=== PATIENT | female | born 1965 | race Caucasian/White ===

== ENCOUNTER → 2017-08-17 14:54 | Outpatient (CLI) | payer OTHER, SELFPAY ==
--- NOTE | 2017-08-17 15:04 | XR_ITS ---
XR chest 2V HISTORY: ITS.REASON: PNEUMONIA ORDERING PHYSICIAN: Angeles Hartman PATIENT AGE: 51 years COMPARISON: 10/12/2016 FINDINGS: Prior median sternotomy. Unremarkable heart size. Right pericardial fat pad is present as before. No lobar consolidation or collapse. Fibrotic changes are present in the anterior clear space in the right upper lobe. No acute bony anomalies. IMPRESSION: Prior median sternotomy with chronic changes, no acute finding
== END ==
LOC: RAD 14:57
PROVIDERS: PCP Nurse Practitioner Family; Visit Provider Nurse Practitioner Family
DX: J18.1 Lobar pneumonia, unspecified organism (principal)
CPT/HCPCS: 71046

== ENCOUNTER → 2017-09-18 10:24 | Outpatient (CLI) | payer OTHER, SELFPAY ==
--- NOTE | 2017-09-18 10:29 | XR_ITS ---
XR knee LT 3V HISTORY: Pain following injury ITS.REASON: LEFT KNEE INJURY ORDERING PHYSICIAN: Angeles Hartman PATIENT AGE: 51 years COMPARISON: 04/07/2017 FINDINGS: There are mild osteoarthritic changes of the medial compartment and patellofemoral joint. No fracture or dislocation. There are varicosities noted about the knee. IMPRESSION: No acute fracture. Osteoarthritis
== END ==
PROVIDERS: PCP Nurse Practitioner Family; Visit Provider Nurse Practitioner Family
DX: S89.92XA Unspecified injury of left lower leg, initial encounter (principal)
CPT/HCPCS: 73562

== ENCOUNTER → 2017-10-04 12:49 | Outpatient (CLI) | payer OTHER, SELFPAY ==
--- NOTE | 2017-10-04 12:57 | US_ITS ---
US Arterial Ankle Brachial Ind History: Ketan no, hypertension, bilateral rest pain, bilateral claudication, bilateral skin color changes ORDERING PHYSICIAN: Angeles Hartman PATIENT AGE: 52 years TECHNIQUE: Segmental pressures obtained of both right and left leg. These are compared to brachial blood pressure to yield index at each level sampled including summary URIEL. The data sheets from the procedure are available in PACS FINDINGS Rest study only performed today No prior studies available for comparison. Blood pressures reported are in millimeters mercury. RIGHT LEG URIEL = 1.1. RIGHT LEG TBI=0.8 Brachial BP: 115 Thigh BP: 142 Calf BP: 140 Ankle PT: 133 Ankle DP : 136 Digit =101 LEFT LEG URIEL = 1.3 LEFT LEG TBI= 0.8 Brachial BPD: 120 Thigh BP: 165 Calf BP: 135 Ankle PT:151 Ankle DP: 135 Digit = 100 Pulses and waveforms: Normal IMPRESSION: The right URIEL and bilateral TBIs as reported above are within normal limits. Waveforms and pulses are also unremarkable. The left URIEL is slightly elevated which may be seen with hardening/calcification of the arteries.
== END ==
LOC: RT 12:52
PROVIDERS: Family Provider Family Medicine; PCP Nurse Practitioner Family; Visit Provider Nurse Practitioner Family
DX: R29.898 Other symptoms and signs involving the musculoskeletal system (principal)
CPT/HCPCS: 93922

== ENCOUNTER → 2017-11-23 16:08 | Outpatient (CLI) | payer OTHER, SELFPAY ==
--- NOTE | 2017-11-23 16:10 | MR_ITS ---
MR knee LT wo con Ordering Physician: Angeles Hartman Patient Age: 52 years: Female HISTORY: ITS.REASON: LEFT ANTERIOR KNEE PAIN Anterior knee pain since fall in September 18, 2017. Pain is all about the left knee. Also lateral. It extends up the leg to the hip.. TECHNIQUE: Multiplanar multisequence imaging on 1.5T MR. COMPARISON : FINDINGS PATELLOFEMORAL JOINT slight shallow femoral trochlear groove with slight lateral tilt and orientation of patella. The cartilage at posterior patella subtle thinned throughout particularly suggested at midportion,, towards lateral facet . .. Patella appears slightly high in position on sagittal view with., with borderline to mild patella aparna. ( Patella itself measures 4 cm length., Longer than Patellar tendon which measures 5 cm in length.) This may yield slight redundancy and buckling of quadriceps tendon near its patellar to to account for its contour here. Early marginal osteophytes to the lateral patella and slight sharpening is margins otherwise. MEDIAL COMPARTMENT. There is narrowing of the medial compartment with what appears to be diffuse chondral thinning both sides the joint. There is slight medial displacement of the body the medial meniscus associated with this joint space narrowing. The sagittal images are not optimal but there does appear to be a small tear inferior surface of posterior horn which extends to the body horn junction. Sagittal image 11, 10.. This is also seen: Image 21. LATERAL COMPARTMENT. Cartilage better maintained with borderline thinning there appears to be some macro metal artifact projected over the posterior aspect of lateral compartment. No metal evident on plain film. This yields a mild field distortion. However the lateral meniscus seems to be intact at the posterior horn only some upper normal signal at the anterior horn towards anterior root. A superficial varicosities about the knee, in this large patient noted . ACL & PCL are intact. T . MCL & lateral collateral ligaments are intact.. Patellar tendon appear intact. Upper normal signal at insertion of quadriceps tendon noted. Requires correlation. Could reflect some minor injury or inflammation here but unimpressive, nonspecific. No definitive tear. Large joint effusion most evident at the patella bursa, lateral greater than medial. Small Jain's cyst also noted IMPRESSION: 1. Diffuse chondral thinning at the medial compartment. Early degenerative changes knee. Mild sharpening the joint margins. 2. Small Medial Meniscal Tear.-At Inferior surface of posterior horn medial meniscus.. Slight medial displacement of the body of medial meniscus associated with the medial joint space narrowing 3. Large joint effusion with small Jain cyst. 4. Patellofemoral joint observations. : Borderline to mild patella aparna noted Slight lateral tilt & position of patella noted,, with modest femoral trochlear groove. Minimal chondral thinning posterior patella cartilage. 5. Upper normal signal at quadriceps tendon insertion upon the patella. Questionable Clinical significance. May merely magic angle artifact. Requires correlation
== END ==
LOC: RAD 16:08
PROVIDERS: Family Provider Family Medicine; PCP Nurse Practitioner Family; Visit Provider Nurse Practitioner Family
DX: M25.562 Pain in left knee (principal)
CPT/HCPCS: 73721

== ENCOUNTER 2018-01-03 09:00 | Outpatient (RCR) | payer OTHER, SELFPAY ==
--- NOTE | 2017-11-01 09:42 | HMH.PTOPWND ---
Rehab Outpt Wound Evaluation Rehab OP Wound Evaluation Start: 11/01/17 08:58 Freq: Status: Active Protocol: Document 11/01/17 09:27 JEN (Rec: 11/01/17 09:42 PHORNE [id number]) Electronically Signed By Trino Grajeda, PT 11/01/17 09:27 Subjective/History History History Pt is 52 yo white female who presents with c/o conor LE edema (right > left), steadily worsening, x ~ 5 yrs. She reports significant pain and tenderness to palpation associated with her edema, with intermittent feelings of tingling. She reports swelling decreases at night with legs propped up and is worse when working on her feet all day. She had URIEL performed which was 1.3 on the left LE which is indicitive of non- compressible arteries and she does c/o symptoms which could be mild claudication. Obvious multiple varicosities throughout conor lower legs. She reports having, laser vein procedure on my left thigh, which did not help her symptoms. She also has PMH of CCY, tubal ligation, and thymus removal. Lymphedema Eval Classification of Lymphedema Secondary Lymphedema Yes Other Lymphedema Cause Yes: CVI Stemmer's sign Stemmer's Sign no Stage of Lymphedema Lymphedema stages Stage I (Pitting edema, reduces w/ elevation, no fibrosis) Skin Changes Dry Skin Yes Pain Scale Pain Scale (0-10) 8 Affected Extremities Areas Affected by Lymphedema/Edema Abdomen Right Lower Extremity Left Lower Extremity Manual Lymphatic Drainage Treatment Area MLD Treatment Area Abdomen Right Lower Extremity Left Lower Extremity Wound Problems/Impairments Impairments Problems/Impairmments Palpation Tenderness Impaired Standing Increased Edema Lymphedema Present Subjective C/O Pain
== END 2018-01-03 09:05 | disposition home or self-care (01) ==
LOC: PT 09:00
PROVIDERS: Family Provider Family Medicine; PCP Nurse Practitioner Family; Visit Provider Nurse Practitioner Family
DX: M25.462 Effusion, left knee (principal); M25.562 Pain in left knee
CPT/HCPCS: 97010; 97014; 97033; 97035; 97110; 97140; 97162; 97163; G0283

== ENCOUNTER → 2018-04-17 14:24 | Outpatient (CLI) | payer OTHER, SELFPAY ==
--- NOTE | 2018-04-17 14:27 | US_ITS ---
US transvaginal HISTORY: Dysfunctional uterine bleeding ITS.REASON: ABNORMAL BLEEDING ORDERING PHYSICIAN: Angeles Hartman PATIENT AGE: 52 years Comparison: None Last menstrual period: 03/16/2018 FINDINGS: The uterus is 8 x 4 x 5 cm with combined endometrial thickness of 9 mm. Small Nabothian cyst is present at 8 mm. No uterine mass apparent The right ovary is 26 by 19 x 14 mm and contains a 15 mm cyst The left ovary difficult to visualize but appears unremarkable at 23 x 12 mm. No cul-de-sac fluid. IMPRESSION: Unremarkable pelvic ultrasound
== END ==
LOC: RAD 14:24
PROVIDERS: PCP Nurse Practitioner Family; Visit Provider Nurse Practitioner Family
DX: N93.9 Abnormal uterine and vaginal bleeding, unspecified (principal)
CPT/HCPCS: 76830

== ENCOUNTER → 2018-04-26 12:59 | Outpatient (CLI) | payer OTHER, SELFPAY ==
--- NOTE | 2018-04-26 13:03 | XR_ITS ---
XR knee LT 4V HISTORY: ITS.REASON: LT KNEE PAIN ORDERING PHYSICIAN: Annette Gold MD PATIENT AGE: 52 years COMPARISON: None FINDINGS: There are mild osteoarthritic changes of the patellofemoral joint and the medial compartment. No fracture or dislocation. No lytic or blastic change. IMPRESSION: Mild osteoarthritis of the medial compartment and patellofemoral joint
== END ==
LOC: RAD 13:00
PROVIDERS: PCP Nurse Practitioner Family; Visit Provider Orthopaedic Surgery
DX: M25.562 Pain in left knee (principal)
CPT/HCPCS: 73564

== ENCOUNTER → 2018-05-02 10:38 | Outpatient (CLI) | payer OTHER, SELFPAY ==
[2018-05-02 10:42] LABS: Adenovirus F 40/41, stool Not Detected (NotDetected); Astrovirus Not Detected (NotDetected); Clostridium Difficile A/B, PCR Not Detected (NotDetected); Cryptosporidium Not Detected (NotDetected); Cyclospora Cayetanesis Not Detected (NotDetected); Entamoeba histolytica Not Detected (NotDetected); Enteroaggregative E coli Not Detected (NotDetected); Enteropathogenic E coli Not Detected (NotDetected); Enterotoxigenic E coli Not Detected (NotDetected); Giardia lamblia Not Detected (NotDetected); Norovirus Not Detected (NotDetected); Plesimonas Shigalloides, PCR Not Detected (NotDetected); Rotavirus A Not Detected (NotDetected); Salmonella, PCR Not Detected (NotDetected); Sapovirus Not Detected (NotDetected); Shiga-like toxin E coli Not Detected (NotDetected); Shigella Enterovasive E coli Not Detected (NotDetected); Vibrio Cholerae Not Detected (NotDetected); Vibrio, PCR Not Detected (NotDetected); Yersinia Entercolitica, PCR Not Detected (NotDetected)
[2018-05-02 15:14] LABS: Campylobacter Detected (NotDetected)
== END ==
LOC: LAB 10:39
PROVIDERS: Visit Provider Family Medicine
DX: R19.7 Diarrhea, unspecified (principal)
CPT/HCPCS: 87507

== ENCOUNTER → 2018-06-04 10:31 | Outpatient (POV) | payer OTHER, SELFPAY | PROVIDERS: Visit Provider Nurse Practitioner Acute Care | DX: Z00.00 Encounter for general adult medical examination without abnormal findings (principal) ==

== ENCOUNTER 2018-09-04 14:00 | Outpatient (RCR) | payer OTHER, SELFPAY ==
--- NOTE | 2018-08-03 08:32 | HMH.PTOPWND ---
Rehab Outpt Wound Evaluation Rehab OP Wound Evaluation Start: 08/03/18 07:57 Freq: Status: Active Protocol: Document 08/03/18 08:22 JEN (Rec: 08/03/18 08:32 PHORNE [id number]) Electronically Signed By Trino Grajeda, PT 08/03/18 08:22 Subjective/History History History Pt is a 52 yowf who presents with c/o conor LE edema x~ 5 yrs , worse on the left side, and gradually increasing symptoms. She reports variable pain in conor LE and intermittent tingling. She has been following her HEP from previous treatment, but has had recent increase in symptoms. She reports edema is decreased in the am. PMH: lap CCY, tubal ligation, laser varicose vein reduction on left LE x 2. She did have URIEL performed on conor LE ~ 8 mos ago Right LE = 1.1, Left LE = 1.3. Subjective Subjective Pt c/o pain 7/10 today, constant but variable intensity. She c/o increased feelings of abdominal edema and would likely benefit from lymphedema pump at home. Lymphedema Eval Classification of Lymphedema Secondary Lymphedema Yes Stemmer's sign Stemmer's Sign no Stage of Lymphedema Lymphedema stages Stage I (Pitting edema, reduces w/ elevation, no fibrosis) Skin Changes Dry Skin Yes Other Changes Yes Pain Scale Pain Scale (0-10) 7 Affected Extremities Areas Affected by Lymphedema/Edema Abdomen Right Lower Extremity Left Lower Extremity Manual Lymphatic Drainage Treatment Area MLD Treatment Area Abdomen Right Lower Extremity Left Lower Extremity Wound Problems/Impairments Impairments Problems/Impairmments Palpation Tenderness Impaired Walking Impaired Stair Climbing Impaired Recreational Activities Increased Edema Lymphedema Present Subjective C/O Pain
== END 2018-09-04 14:05 | disposition home or self-care (01) ==
LOC: PT 14:00
PROVIDERS: Visit Provider Nurse Practitioner Family
DX: I89.0 Lymphedema, not elsewhere classified (principal); M79.662 Pain in left lower leg; M79.661 Pain in right lower leg
CPT/HCPCS: 97140; 97162

== ENCOUNTER → 2018-12-05 10:40 | Outpatient (CLI) | payer OTHER, SELFPAY ==
[2018-12-05 11:14] LABS: Basophils # 0.1 K/mm3 (0-0.2); Basophils % 1.3 % (0.1-2.0); Eosinophils # 0.3 K/mm3 (0.0-0.4); Eosinophils % 2.9 % (0.1-12.0); Hematocrit 43.2 % (37.0-47.0); Hemoglobin 14.5 g/dL (12.2-16.2); Lymphocytes # 3.5 K/mm3 (0.7-4.5); Lymphocytes % 34.7 % (10-50); Mean Corpuscular HGB Conc 33.6 g/dL (31.8-35.4); Mean Corpuscular Hemoglobin 30.2 pg (27.0-31.2); Mean Corpuscular Volume 89.8 fl (81-99); Mean Platelet Volume 8.3 fl (7.4-10.4); Monocytes # 0.5 K/mm3 (0.1-1.0); Monocytes % 4.4 % (1.7-9.3); Neutrophils # 5.8 K/mm3 (1.8-7.8); Neutrophils % 56.8 % (37.0-80.0); Platelet Count 312 K/mm3 (142-424); Red Blood Count 4.81 M/mm3 (4.20-5.40); Red Cell Distribution Width 13.2 % (11.5-17.5); White Blood Count 10.2 K/mm3 (4.8-10.8)
--- NOTE | 2018-12-05 11:14 | XR_ITS ---
XR chest 2V HISTORY: Cough ITS.REASON: pre op cough ORDERING PHYSICIAN: Annette Gold MD PATIENT AGE: 53 years COMPARISON: 08/17/2017 FINDINGS: Prior CABG. Normal heart size. There is increased density in the right pericardial region consistent with prominent pericardial fat pad. Mild scarring anterior clear space. The remaining lungs are clear.. No acute bony findings. IMPRESSION: No change with no acute finding
[2018-12-05 11:53] LABS: Activated Partial Thrombo Time 25.1 seconds (23.6-34.0); INR 0.97 (0.9-1.1); Prothrombin Time 10.1 seconds (9.4-11.8)
[2018-12-05 13:53] LABS: Alanine Aminotransferase 19 U/L (12-78); Albumin Level 3.5 gm/dL (3.4-5.0); Albumin/Globulin Ratio 1.1 (1.1-1.8); Alkaline Phosphatase 71 U/L (46-116); Anion Gap 13.8 mEq/L (5-15); Aspartate Amino Transferase 11 U/L (15-37); Bilirubin,Total 0.5 mg/dL (0.2-1.0); Blood Urea Nitrogen 12 mg/dL (7-18); Carbon Dioxide 26 mmol/L (21.0-32.0); Chloride 103 mmol/L (98-107); Estimated Glomerular Filt Rate 58 ml/min (>60); GFR (African American) 71 ML/MIN (>60); Globulin 3.3 gm/dl (1.3-3.2); Glucose 93 mg/dL (74-106); Potassium 3.8 mmoL/L (3.5-5.1); Sodium 139 mmol/L (136-145); Total Protein,Serum 6.8 gm/dL (6.4-8.2)
== END ==
PROVIDERS: Visit Provider Orthopaedic Surgery
DX: Z01.818 Encounter for other preprocedural examination (principal); M17.12 Unilateral primary osteoarthritis, left knee
CPT/HCPCS: 36415; 71046; 80053; 85025; 85610; 85730; 87081; 93005

== ENCOUNTER → 2018-12-10 11:04 | Outpatient (CLI) | payer OTHER, SELFPAY ==
--- NOTE | 2018-12-10 11:21 | XR_ITS ---
XR knee LT 4V HISTORY: Knee pain ITS.REASON: knee pain/pre op ORDERING PHYSICIAN: Annette Gold MD PATIENT AGE: 53 years COMPARISON: 04/26/2018 FINDINGS There are mild osteoarthritic changes of the medial compartment and patellofemoral joint. No fracture or dislocation. No lytic or blastic change. No significant change. IMPRESSION: Osteoarthritis
== END ==
PROVIDERS: PCP Nurse Practitioner Family; Visit Provider Orthopaedic Surgery
DX: M17.12 Unilateral primary osteoarthritis, left knee (principal); Z01.818 Encounter for other preprocedural examination
CPT/HCPCS: 73564; 87081

== ENCOUNTER → 2018-12-12 15:25 | Outpatient (CLI) | payer OTHER, SELFPAY ==
--- NOTE | 2018-12-12 15:28 | MM_ITS ---
MM Dig screening mamm BI w/CAD CAD Screening COMPARISON: Digital mammograms with CAD 09/29/2016 and 08/13/2015 INDICATION: There is a history of breast cancer patient's paternal aunt and paternal cousin. TECHNIQUE: Standard CC and MLO images were obtained. R2 CAD reviewed. FINDINGS: Scattered fibroglandular densities are seen throughout both breast and the findings are bilateral and symmetrical. There is no suspicious lesion and no suspicious microcalcifications. IMPRESSION: Fibrofatty parenchyma no suspicious lesion seen BI-RADS Category: 1 Negative RECOMMENDED FOLLOW-UP: 1YR - 1 YEAR FOLLOW-UP (A letter has been sent to the patient regarding results of the study.)
== END ==
PROVIDERS: PCP Nurse Practitioner Family; Visit Provider Nurse Practitioner Family
DX: Z12.31 Encounter for screening mammogram for malignant neoplasm of breast (principal)
CPT/HCPCS: 77067

== ENCOUNTER → 2018-12-17 08:57 | Outpatient (CLI) | payer OTHER, SELFPAY | PROVIDERS: Visit Provider Orthopaedic Surgery | DX: M17.12 Unilateral primary osteoarthritis, left knee (principal) | CPT/HCPCS: 36415; 86850 ==

== ENCOUNTER 2018-12-18 09:08 | Inpatient (IN) ==
--- NOTE | 2018-12-18 15:32 | Pharmacy Consult Notes ---
[facility] Pharmacy VTE Monitoring - Patient Demographics Admission date: 12/18/18 Report Date: 12/18/18 Time: 15:32 Allergies/Adverse Reactions: Patient Allergies No Known Allergies Allergy (Verified 12/17/18 11:49) Height: 1.73 m Weight: 127.006 kg - VTE Risk Clinical Trial Participant: No - Prophylaxis VTE Prophylaxis Ordered?: Yes Types of VTE Prophylaxis: TEDS Knee High
--- NOTE | 2018-12-18 17:09 | Progress Note ---
[facility] Anesthesia Checklist - Patient Identification Patient Identification: Arm Band, Verbal (Name & ) - Structural Data Admitted From: Home Planned Operative Procedure/s: Left TKA Consent for Planned Operative Procedure(s) Verified: Yes Verified Documents: Surgical Consent, History and Physical - NPO Status Verified Time NPO: 22:00 - Chart Verification Results Verified: CBC, BMP, ECG, UA, HCG - Additional verifications Patient : No Anesthesia Reactions: No Hx Blood Transfusions: No Blood Transfusion Reaction: No - Airway Assessment C-Spine Mobility Assessed: Yes TMJ Mobility Assessed: Yes Dentition: Poor Dentition (Missing teeth) - Neurological Assessment Level of Consciousness: Awake, Alert, Appropriate, Follows Commands Hx Seizures: No Numbness or tingling in extremities: No - Anesthesia Plan Anesthesia Risk discussed: Yes Anesthesia Plan: Verified ASA Class: IV Anesthesia Type: Spinal (Left ACB) [facility] History I have reviewed the patient's past medical history: Yes Medical History: Reports:: Anxiety, Congestive Heart Failure, Depression, Gastroesophageal Reflux Disease(GERD), Hypertension Denies:: Cancer, Diabetes Mellitus Type 1, Diabetes Mellitus Type 2, Internal Pacemaker, MRSA, Seizures *Have you ever received a pneumonia vaccine?: No *Have you received a flu vaccine this season?: No Other Medical History: Reports: Other. Denies: Blood Transfusion Reaction Comment:: morbid obesity Laterality Cases: Right: Arthroscopy Shoulder, Bilateral: Tonsillectomy, Other Other Surgeries: Yes: Colonoscopy, Tubal Ligation. No: Pacemaker Amputation: No Fractures: No - *Social History Educational Level: Completed High School Smoking Status: Current every day smoker Tobacco Type: cigarettes # Packs/Day (cigarettes): 1 Alcohol Intake: never Substance Use Type: denies use *Occupational Status:: disabled, other Housing: house Household Members: spouse *Travel in the last 8 weeks: None - Psychiatric History Pschychiatric History:: Reports:: Anxiety, Depression Family Hx:: Heart Attack, Diabetes, Cancer
--- NOTE | 2018-12-18 17:10 | Progress Note ---
[facility] Anesthesia Record Part II Discharge Time: 17:30 Destination: Medical Surgical Department PACU nurse assessment reviewed?: Yes Patient Condition:: Good Anesthesia Complications:: None Swallowing reflex intact?: Yes Cyanosis?: No
--- NOTE | 2018-12-18 17:10 | Progress Note ---
[facility] Anesthesia Record Part I Intake, IV Amount: 1,700 Estimated blood loss (mL): 125 Urine output (mL): 400 Blood Products used (#): none Blood Pressure: 143/56 SaO2: 96 Pulse Rate: 80 Respiratory Rate: 16 Temperature: 97.8 F Patient is:: Awake, Drowsy, Nasal O2, Stable Stable to PACU at:: 17:00
--- NOTE | 2018-12-18 19:37 | Consult Report ---
*Admission Date: 12/18/18 *Reason for consult:: Medical management *History of present illness: 53-year-old female underwent left total knee arthroplasty today by Dr. Schaefer. I have been consulted for medical management. Patient has a personal history of hyperlipidemia and asthma which are well controlled. At present she denies any complaints [facility] History Medical History: Reports:: Anxiety, Asthma, Depression, Gastroesophageal Reflux Disease(GERD), Hyperlipidemia Denies:: Cancer, Diabetes Mellitus Type 1, Diabetes Mellitus Type 2, Internal Pacemaker, MRSA, Seizures *Have you ever received a pneumonia vaccine?: No *Have you received a flu vaccine this season?: No Other Medical History: Reports: Other. Denies: Blood Transfusion Reaction Laterality Cases: Right: Arthroscopy Shoulder, Bilateral: Tonsillectomy, Other Other Surgeries: Yes: Colonoscopy, Tubal Ligation. No: Pacemaker Amputation: No Fractures: No - *Social History Educational Level: Completed High School Smoking Status: Current every day smoker Tobacco Type: cigarettes # Packs/Day (cigarettes): 1 Alcohol Intake: never Substance Use Type: denies use *Occupational Status:: disabled, other Housing: house Household Members: spouse *Travel in the last 8 weeks: None - Psychiatric History Expresses thoughts of harming self/others: None Suicide Plan Description: No Plan Pschychiatric History:: Reports:: Anxiety, Depression Family Hx:: Heart Attack, Diabetes, Cancer Review of Systems - Constitutional Denies anorexia, Denies body ache(s) - *Cardiovascular Denies chest pain, Denies chest pain at rest, Denies chest pain with activity - *Respiratory Denies chest congestion - *Gastrointestinal Denies abdominal pain, Denies belching, Denies bloating, Denies change in stools - *Genitourinary Denies abnormal vaginal bleeding - *Musculoskeletal Reports joint pain - *Neurologic Denies abnormal hearing, Denies abnormal movements, Denies abnormal speech - Endocrine Denies excessive sweating, Denies flushing Meds Home Medications Medication Instructions Recorded Confirmed Type budesonide-formoterol HFA 80 2 puff INHALATION BID 06/07/17 12/17/18 History mcg-4.5 mcg/actuation aerosol inhaler Diclofenac Sodium [Diclofenac 75mg 75 mg PO BID 07/19/18 12/18/18 History Tab] Omeprazole [Omeprazole 40mg 40 mg PO DAILY 07/19/18 12/17/18 History Capsule] hydroCHLOROthiazide [HCTZ 25mg 25 mg PO DAILY 07/19/18 12/17/18 History tab] raNITIdine HCl [Ranitidine HCl] 300 mg PO HS 07/19/18 12/18/18 History Fluoxetine HCl [Prozac 20mg 20 mg PO DAILY 12/17/18 12/17/18 History Capsule] mupirocin 2 % nasal ointment See Rx Instructions INTRANASAL BID 12/17/18 12/17/18 History Allergies Allergy/AdvReac Type Severity Reaction Status Date / Time No Known Allergies Allergy Verified 12/17/18 11:49 Exam Vital signs and Labs for Last 24 Hours: Temp Pulse Resp BP Pulse Ox 97.5 F L 75 18 120/72 95 12/18/18 18:45 12/18/18 18:45 12/18/18 18:45 12/18/18 18:45 12/18/18 18:45 Laboratory Results - last 24 hr 12/18/18 09:45: Urine HCG, Qual Negative 12/18/18 13:00: Urine Color Yellow, Urine Appearance Clear, Urine pH 8.0, Ur Specific [place] 1.015, Urine Protein Negative, Urine Glucose (UA) Negative, Urine Ketones Negative, Urine Blood Negative, Urine Nitrate Negative, Urine Bilirubin Negative, Urine Urobilinogen 0.2, Ur Leukocyte Esterase Negative, Urine RBC Occasional, Urine WBC 3-5, Ur Squamous Epith Cells 3-5, Urine Bacteria Trace I & O for Last 24 hours: Intake & Output 12/16/18 12/17/18 12/18/18 12/19/18 11:59 11:59 11:59 11:59 Intake Total 1800 / 1800 Output Total 425 / 425 Balance 1375 / 1375 Weight 280 lb 280 lb - Constitutional no acute distress - *Routine HEENT Exam Head: Present: normocephalic Eye: Present: EOMI, PERRL ENT: Present: mucous membranes moist - *Routine Neck Exam Present: supple. Absent: JVD, carotid bruit - *Routine Respiratory Exam Present: CTA bilaterally - *Routine Cardiovascular Exam Present: RRR, Normal S1, Normal S2 - *Routine Abdominal Exam Present: soft, normoactive bowel sounds. Absent: tenderness, distended - *Routine Extremities Exam Present: edema, normal capillary refill Internal Medicine - CN: Reslt - Labs Labs: Urine 12/18/18 Range/Units 13:00 Urine Color Yellow (Yellow) Urine Appearance Clear (Clear) Urine pH 8.0 (5.0-8.5) Ur Specific [place] 1.015 (1.005-1.030) Urine Protein Negative (Negative) Urine Glucose (UA) Negative (Negative) Assessment and Plan (1) Hyperlipidemia Current visit: Yes Status: Chronic Category: Medical Code(s): E78.5 - Hyperlipidemia, unspecified (2) GERD (gastroesophageal reflux disease) Current visit: Yes Status: Chronic Category: Medical Code(s): K21.9 - Gastro-esophageal reflux disease without esophagitis (3) Obstructive airway disease Current visit: Yes Status: Chronic Category: Medical Code(s): J44.9 - Chronic obstructive pulmonary disease, unspecified - Assessment and plan all Dx Assessment and Plan for all problems:: Patient's chronic medical conditions are of low acuity. Recommend continuing home medications during hospitalization.
--- NOTE | 2018-12-18 22:20 | Operative Note ---
Date of procedure: 12/18/18 Pre-op Diagnosis:: L knee degenerative joint disease Post-op Diagnosis:: L knee degenerative joint disease Procedure performed:: L total knee arthroplasty Surgeon:: Annette Gold MD Skeins Yarn Examiner(s):: MD Jenn MohanA NIPPING MACHINE OPERATOR:: Tuan Ingram Anesthesia: MAC, regional, local, spinal Estimated blood loss (mL): 100 Clinical Note:: 53 year-old female with left knee DJD and chronic pain refractory to conservative therapy over the course of several years. She has tried oral diclofenac, Tylenol, tramadol as well as [id number] NSAIDs. She has applied ice to the knee, changed her activity to riding a bicycle and swimming in a pool. She has been working on weight loss and has switched to a low-carb diet recently and lost 10 pounds in the last month. She has had multiple steroid injections in the past, and 2 by me in April 2018 in August 2018. She had a Synvisc injection in September 2018 that helped for maybe 1 month. Her pain is increasing to the point it is adversely affecting her quality of life and she is very unhappy. Subha discussed surgical options with the patient and have recommended total knee arthroplasty. We discussed at length the surgical technique and expected perioperative course, including length of hospitalization, need for postoperative physical therapy, use of anticoagulants, expected level of pain, and total length of recovery. I also explained the potential risks of surgery, including bleeding, infection, fracture, wound healing complications, need for revision surgery, continued pain post- operatively, DVT/PE, and risks of both general and regional anesthesia, including nerve damage, heart attack, stroke and even . The patient vocal ized understanding of these risks and has agreed to proceed with surgery; informed consent was obtained. Pre-operative clearance was obtained by her PCP and pre-op laboratory testing, EKG and CXR were within normal limits. She tested positive for MRSA colonization with pre-op nasal swab, so bactroban nasal ointment was prescribed and used by the patient for 5 days before surgery. Operative findings:: IMPLANTS: [employer] BCS TKA system 6 femur 4 tibia 11mm poly 32 patella Operative note:: The patient was identified in pre-operative holding and the left knee signed by myself with marking pen. Consent was verified with the patient and all questions were answered. Pre-operative labs were confirmed to be within acceptable limits. MRSA nasal swab was positive; it was confirmed with the patient that she completed 5 days of Bactroban nasal ointment. The patient was then taken to the OR, placed supine on the operative table and spinal anesthesia administered. 2g vancomycin + 2g ancef and 10mg/kg tranexamic acid were infused intravenously and the patient sedated (MAC). Once the patient was sedated, a nonsterile tourniquet was placed on the upper left thigh and the leg was prepped and draped in the usual sterile fashion for knee arthroplasty. Timeout was performed, identifying the correct patient, correct procedure, and correct site. The procedure was begun by exsanguinating the left lower extremity with an Esmarch and inflating the tourniquet to 300 mmHg. A longitudinal incision was made down the anterior aspect of the left knee centered over the patella, extending from 2 fingerbreadths superior to the patella to the tibial tubercle. Subcutaneous tissue was incised down to the patellar retinaculum and limited medial and lateral flaps were raised. Medial parapatellar arthrotomy was then made and Bovie used to perform a moderate medial release. Next, the patella was everted and the knee flexed to around 100 degrees. Fat pad was excised and both medial and lateral menisci were excised as well. The ACL and PCL were then excised sharply. The joint was exposed with Hohmann retractors medially and laterally. Next the entry reamer was used to find and create the starting point for the distal femoral cutting guide. Through this entry point, intramedullary ian component of the distal femoral cutting guide was inserted and the cutting guide pinned into place, set at 6 degrees valgus. This cutting guide was pinned into place, the intramedullary ian removed, and oscillating saw used to create distal femoral cut, removing the standard 9 mm from the distal femur. The femoral component was sized using the sizing guide and a size 6 femur found to be the most appropriate component size. A size 6 5-in-1 cutting block was then placed on the distal femur, set in 3 degrees of external rotation. The saw was then used to make all 5 cuts in this cutting guide and all excised bone removed from the knee. Lamina spreaders were used to check the back of the knee for excess bone and none was found. Lamina poiser balance was removed and femoral trial placed on the distal femur. This was seen to fit very well both medially laterally and no notching of the anterior femoral cortex was seen. The femoral notch was then cut with both reamer and box chisel and all excess debris removed from the notch. Attention was then turned to the tibia and a size 5 tibial component simply too large. We dropped down to a size 4 tibial component and this fit the patient's natural anatomy very well, with no overhang medially or laterally. The tibial component was placed in appropriate rotation and pinned in place. Next, the knee was taken through a range of motion with a series of polyethylene trials, balancing the knee. The most appropriate poly was 11mm so this was the most likely final trial. With the knee in extension, the patella was then cut using a patella cutting guide. A size 32 patella fit nicely, so lug holes were drilled and 32 trial patella placed. The knee was then taken through range of motion and the patella appeared to be tracking very well. With this configuration of components, a 6 femur, 4 tibia, 11 poly and 32 patella, the knee appeared to be well balanced with excellent range of motion and was able to be brought to full extension. All components were then removed from the knee, except the tibia, which was given its final prep using reamer and keel punch. After the tibia was punched, it was removed from the knee as well, and the knee was placed into flexion, retractors placed and the knee copiously irrigated with pulsatile lavage. While the knee was irrigated, cement was mixed on the back table. While cement was curing, joint cocktail was injected into the posterior portion of the knee; this was a mixture of Toradol, epinephrine, morphine and bupivacaine, and approximately 30 cc were infused into the posterior capsule and surrounding structures. The bone was then dried well with clean laps, and all final components were then cemented into place. The tibia was impacted into place and excess cement removed. This was followed by the femoral component and the knee placed into extension with a trial polyethylene component. The patella was cemented into place as well and secured with patellar clamp. As these components were hardening, the knee was kept in extension and gentle downward pressure placed on the thigh to keep the knee extended. During this time the knee was treated with a dilute Betadine soak. After the cement was hardening, Betadine was suctioned from the knee, which was then irrigated. Trial poly was removed from the knee, which was placed into flexion and the tourniquet was dropped. Lamina poiser balance was placed into the knee to expose the posterior capsular, and no active bleeding was seen in the posterior aspect of the knee. There was no active bleeding throughout the remainder of the knee either. The knee was irrigated once more, and final 11 mm polyethylene component placed into the knee. The knee was then reduced and placed in extension. The remainder of the joint cocktail was then infiltrated into the periarticular tissues. The knee was copiously irrigated with more pulsatile lavage and closed in a layered fashion, starting with alternating 0 Ethibond and 0 Vicryl in the capsule. The capsule was sutured tightly with the knee in around 20 to 30 degrees flexion. Subcutaneous tissue was closed in a layered fashion as well, with 2-0 Vicryl on the deeper tissues and antonia on the skin. The wound was dressed with a sterile Silverlon dressing and wrapped with webril and Guillermo wrap from the toes to the upper thigh. The patient was then transferred to PACU in good condition. She did very well throughout this case with no immediate complications. Tourniquet time (min): 120 Condition: stable Disposition: PACU Specimens:: none Complications:: none
[2018-12-19 07:22] LABS: Basophils % 0.2 % (0.1-2.0); Eosinophils % 0.1 % (0.1-12.0); Hematocrit 36.6 % (37.0-47.0); Hemoglobin 12.2 g/dL (12.2-16.2); Lymphocytes # 2.1 K/mm3 (0.7-4.5); Lymphocytes % 12.6 % (10-50); Mean Corpuscular HGB Conc 33.5 g/dL (31.8-35.4); Mean Corpuscular Volume 90.4 fl (81-99); Mean Platelet Volume 8.4 fl (7.4-10.4); Monocytes # 0.8 K/mm3 (0.1-1.0); Monocytes % 4.6 % (1.7-9.3); Neutrophils # 13.9 K/mm3 (1.8-7.8); Neutrophils % 82.7 % (37.0-80.0); Platelet Count 214 K/mm3 (142-424); Red Blood Count 4.05 M/mm3 (4.20-5.40); Red Cell Distribution Width 13.1 % (11.5-17.5); White Blood Count 16.8 K/mm3 (4.8-10.8)
[2018-12-19 07:33] LABS: Anion Gap 11.5 mEq/L (5-15); Calcium 8.3 mg/dL (8.5-10.1)
[2018-12-19 10:04] LABS: Lymphocytes % 11 % (10-50); Monocytes % 4 % (2-9); Neutrophils % 85 % (42-76); Total Cells Counted 100
[2018-12-19 10:06] LABS: RBC Morphology Normal
--- NOTE | 2018-12-19 11:48 | Progress Note ---
Subjective Date: 12/19/18 Time: 10:30 Principal diagnosis: s/p L TKA Interval history: The patient is doing well this morning. She is currently working with PT and I witnessed her ambulate across her room with minimal assistance using a rolling walker. She reports pain in the L knee, but medication helps. Denies chest pain, abdominal pain or shortness of breath. PN: Obj Ex Vital signs: Temp Pulse Resp BP Pulse Ox 98.2 F 65 18 118/67 98 12/19/18 08:00 12/19/18 08:00 12/19/18 08:00 12/19/18 08:00 12/19/18 08:00 - Constitutional no acute distress - Routine HEENT Exam Head: Present: normocephalic Eye: Present: EOMI ENT: Present: mucous membranes moist - Routine Respiratory Exam Absent: accessory muscle use, rhonchi, wheezes - Routine Cardiovascular Exam Present: RRR - Routine Abdominal Exam Present: soft. Absent: tenderness - Routine Extremities Exam Comments: LLE with hinged knee brace dressings LLE c/d/i, no strikethrough +DF/PF/EHL LLE palpable pedal pulses LLE, foot warm/well-perfused L calf soft, non-tender parnell to gravity, clear yellow urine - Routine Neurological Exam Present: alert, oriented X3, moving all extremities, normal tone. Absent: sensory deficit, motor deficit, altered mental status - Urinary Catheter Management Parnell Cath placed during this visit: yes Urethral indwelling: No Insertion date: 12/18/18 Insertion time: 13:00 Progress Note: A&P (1) Left knee DJD Status: Acute Current Visit: Yes (2) Total knee replacement status Status: Acute Current Visit: Yes Assessment and Plan for All Diagnoses:: 53yo F POD 1 s/p L TKA -- continue PT/OT, WBAT LLE with hinged knee brace; locked in extension for ambulation, unlock to 90 degrees while sitting/supine for ROM -- ice knee frequently with polar care device -- DVT prophy: SCD RLE, lovenox 30mg SQ BID x 14 days; will transition to ASA x 1 month after that -- complete 24hr post-op antibiotic prophylaxis -- pain control; continue percocet + morphine for breakthrough -- d/c parnell this am -- may d/c IVF -- encourage IS 10x per hour while awake -- dispo: plan on d/c home, likely tomorrow, with outpatient PT. Has PT appointment 12/25/18 at 4pm
[2018-12-20 07:19] LABS: Basophils # 0.1 K/mm3 (0-0.2); Basophils % 0.5 % (0.1-2.0); Eosinophils # 0.3 K/mm3 (0.0-0.4); Eosinophils % 2.2 % (0.1-12.0); Hematocrit 35.3 % (37.0-47.0); Hemoglobin 11.7 g/dL (12.2-16.2); Lymphocytes # 2.7 K/mm3 (0.7-4.5); Lymphocytes % 21.4 % (10-50); Mean Corpuscular HGB Conc 33.1 g/dL (31.8-35.4); Mean Corpuscular Volume 90.6 fl (81-99); Mean Platelet Volume 8.8 fl (7.4-10.4); Monocytes # 0.6 K/mm3 (0.1-1.0); Monocytes % 4.5 % (1.7-9.3); Neutrophils % 71.3 % (37.0-80.0); Platelet Count 192 K/mm3 (142-424); Red Cell Distribution Width 13.1 % (11.5-17.5); White Blood Count 12.5 K/mm3 (4.8-10.8)
--- NOTE | 2018-12-20 07:20 | Progress Note ---
Internal Medicine - PN: Subj *Date: 12/20/18 *Time: 07:18 Interval history: Patient has no complaints this morning. She admits her day started out rough yesterday but as the day progressed she began to feel better. She was evaluated by physical therapy. She has been ambulating with walker. Exam Vital signs and Labs for Last 24 Hours: Temp Pulse Resp BP Pulse Ox 98.3 F 62 18 121/62 94 L 12/20/18 04:00 12/20/18 04:00 12/20/18 04:00 12/20/18 04:00 12/20/18 04:00 Laboratory Results - last 24 hr 12/19/18 06:25: WBC 16.8 H, RBC 4.05 L, Hgb 12.2, Hct 36.6 L, MCV 90.4, MCH 30.3, MCHC 33.5, RDW 13.1, Plt Count 214, MPV 8.4, Neut % (Auto) 82.7 H, Lymph % (Auto) 12.6, [place] % (Auto) 4.6, Eos % (Auto) 0.1, Baso % (Auto) 0.2, Neut # (Auto) 13.9 H, Lymph # (Auto) 2.1, [place] # (Auto) 0.8, Eos # (Auto) 0.0, Baso # (Auto) 0.0, Total Counted 100, Neutrophils % (Manual) 85 H, Lymphocytes % (Manual) 11, Monocytes % (Manual) 4, Platelet Estimate Normal, RBC Morphology Normal 12/19/18 06:25: Sodium 138, Potassium 3.5, Chloride 103, Carbon Dioxide 27, Anion Gap 11.5, BUN 15, Creatinine 1.04 H, Estimated Creat Clear 65, Estimated GFR 56 L, Est GFR ( Amer) 68, Glucose 132 H, Calcium 8.3 L I & O for Last 24 hours: Intake & Output 12/17/18 12/18/18 12/19/18 12/20/18 11:59 11:59 11:59 11:59 Intake Total 3627 / 3627 1368 / 1368 Output Total 1225 / 1225 Balance 2402 / 2402 1368 / 1368 Weight 280 lb 280 lb 279 lb 2.001 oz 282 lb 7 oz Narrative: She looks well. Lungs are clear. Heart has a regular rate and rhythm. Patient is able to move her ankle and wiggle her toes on the left foot Assessment and Plan (1) Left knee DJD Current visit: Yes Status: Acute Category: Medical Code(s): M17.12 - Unilateral primary osteoarthritis, left knee (2) Total knee replacement status Current visit: Yes Status: Acute Category: Surgical Code(s): Z96.659 - Presence of unspecified artificial knee joint (3) GERD (gastroesophageal reflux disease) Current visit: Yes Status: Chronic Category: Medical Code(s): K21.9 - Gastro-esophageal reflux disease without esophagitis (4) Hyperlipidemia Current visit: Yes Status: Chronic Category: Medical Code(s): E78.5 - Hyperlipidemia, unspecified (5) Obstructive airway disease Current visit: Yes Status: Chronic Category: Medical Code(s): J44.9 - Chronic obstructive pulmonary disease, unspecified - Assessment and plan all Dx Assessment and Plan for all problems:: 1. Orthopedic management per Dr. Gold 2. No change in treatment of patient's long-term medical conditions
[2018-12-20 07:49] LABS: Anion Gap 11.9 mEq/L (5-15); Calcium 8.5 mg/dL (8.5-10.1)
--- NOTE | 2018-12-20 12:27 | Progress Note ---
Subjective Date: 12/20/18 Time: 09:00 Principal diagnosis: s/p L TKA Interval history: The patient is doing well this morning. Dressings were loosened yesterday, which decreased her pain quite a bit. There has been mild drainage, which was reinforced. Pain controlled with oral medication. PN: Obj Ex Vital signs: Temp Pulse Resp BP Pulse Ox 98.1 F 65 22 105/52 L 99 12/20/18 11:51 12/20/18 11:51 12/20/18 11:51 12/20/18 11:51 12/20/18 11:51 - Constitutional no acute distress - Routine HEENT Exam Head: Present: normocephalic Eye: Present: EOMI ENT: Present: mucous membranes moist - Routine Respiratory Exam Absent: accessory muscle use, rhonchi, wheezes - Routine Cardiovascular Exam Present: RRR - Routine Abdominal Exam Present: soft. Absent: tenderness - Routine Extremities Exam Comments: LLE with hinged knee brace dressings LLE intact, mild sanguinous d/c on dressing, no active drainage +DF/PF/EHL LLE palpable pedal pulses LLE, foot warm/well-perfused L calf soft, non-tender - Routine Neurological Exam Present: alert, oriented X3, moving all extremities, normal tone. Absent: sensory deficit, motor deficit, altered mental status - Urinary Catheter Management Webb Cath placed during this visit: yes Urethral indwelling: No Insertion date: 12/18/18 Insertion time: 13:00 Progress Note: A&P (1) Left knee DJD Status: Acute Current Visit: Yes (2) Total knee replacement status Status: Acute Current Visit: Yes (3) Hypokalemia Status: Acute Current Visit: Yes Assessment and Plan for All Diagnoses:: 53yo F POD 2 s/p L TKA -- K low this morning, 40mEq oral KCl given -- patient is doing very well with therapy, will d/c home today -- home exercise program given by PT, reinforced importance of this to patient -- continue WBAT LLE, HNB locked in extension for ambulation, unlocked to 90deg for ROM while supine/seated -- ice knee frequently -- may shower starting tomorrow, cover with clean dressing after shower; change daily or PRN -- advised patient to call my office for prolonged fevers, incisional redness, persistent drainage -- patient vocalized ability and willingness to self-administer lovenox at home; will continue for total of 14 days, then transition to ASA -- f/u with OPPT at [facility] 12/25/2018 at 4pm -- f/u with me 01/03/2019 at 10am -- detailed, written discharge instruction sheet was given to the patient from myself, as well as Rx for pain medication + lovenox
--- NOTE | 2018-12-20 12:38 | Discharge Summary ---
General - General Admission date:: 12/18/18 Discharge date: 12/20/18 HPI HPI: 53 year-old female with left knee DJD and chronic pain refractory to conservative therapy over the course of several years. She has tried oral diclofenac, Tylenol, tramadol as well as hipa-[id number]-[id number] NSAIDs. She has applied ice to the knee, changed her activity to riding a bicycle and swimming in a pool. She has been working on weight loss and has switched to a low-carb diet recently and lost 10 pounds in the last month. She has had multiple steroid injections in the past, and 2 by me in April 2018 in August 2018. She had a Synvisc injection in September 2018 that helped for maybe 1 month. Her pain is increasing to the point it is adversely affecting her quality of life and she is very unhappy. Subha discussed surgical options with the patient and have recommended total knee arthroplasty. We discussed at length the surgical technique and expected perioperative course, including length of hospitalization, need for postoperative physical therapy, use of anticoagulants, expected level of pain, and total length of recovery. I also explained the potential risks of surgery, including bleeding, infection, fracture, wound healing complications, need for revision surgery, continued pain post- operatively, DVT/PE, and risks of both general and regional anesthesia, including nerve damage, heart attack, stroke and even . The patient vocalized understanding of these risks and has agreed to proceed with surgery; informed consent was obtained. Pre-operative clearance was obtained by her PCP and pre-op laboratory testing, EKG and CXR were within normal limits. She tested positive for MRSA colonization with pre-op nasal swab, so bactroban nasal ointment was prescribed and used by the patient for 5 days before surgery. Hospital Course Hospital Course: Surgery was performed on 12/18/2018; the patient did well but did sustain a small partial tear of the patellar tendon during surgery. A hinged knee brace was applied in PACU. She was admitted to the med/surg floor post-operatively and home medications restarted; Dr. Oliveira was consulted for medical management. Pain medication was given for post-op pain control and polar care device used for crytherapy. On POD 1 parnell was removed and the patient mobilized with physical therapy. She was allowed to WBAT LLE with the hinged brace locked in extension, and unlocked it to 90 degrees for ROM exercises. On POD 2 her potassium level was low, so she was given 40mEq of oral KCl. Otherwise her post-op course was uncomplicated without any medical issues. She had no fevers, vitals were stable and she denied chest pain/shortness of breath throughout her stay. She was medically stable for discharge on POD 2 and doing well enough with therapy that she was physically appropriate for d/c as well. She was discharged home in the care of her with detailed discharge instructions and a follow-up with outpatient physical therapy 12/25/18. Objective Vital signs: Temp Pulse Resp BP Pulse Ox 98.1 F 65 22 105/52 L 99 12/20/18 11:51 12/20/18 11:51 12/20/18 11:51 12/20/18 11:51 12/20/18 11:51 no acute distress - *Routine HEENT Exam Head: Present: normocephalic Eye: Present: EOMI ENT: Present: mucous membranes moist - *Routine Respiratory Exam Present: CTA bilaterally. Absent: accessory muscle use, rhonchi, wheezes - *Routine Cardiovascular Exam Present: RRR - *Routine Abdominal Exam Present: soft. Absent: tenderness - *Routine Extremities Exam Comments: LLE with hinged knee brace dressings LLE c/d/i, no strikethrough +DF/PF/EHL LLE palpable pedal pulses LLE, foot warm/well-perfused L calf soft, non-tender - *Routine Neurological Exam Present: alert, oriented X3, moving all extremities, normal tone. Absent: sensory deficit, motor deficit, altered mental status Results Completed studies during hospitalization [Text1]: Laboratory Results - last 48 hr 12/18/18 12/19/18 12/19/18 13:00 06:25 06:25 WBC 16.8 H RBC 4.05 L Hgb 12.2 Hct 36.6 L MCV 90.4 MCH 30.3 MCHC 33.5 RDW 13.1 Plt Count 214 MPV 8.4 Neut % (Auto) 82.7 H Lymph % (Auto) 12.6 Dade % (Auto) 4.6 Eos % (Auto) 0.1 Baso % (Auto) 0.2 Neut # (Auto) 13.9 H Lymph # (Auto) 2.1 Dade # (Auto) 0.8 Eos # (Auto) 0.0 Baso # (Auto) 0.0 Total Counted 100 Neutrophils % (Manual) 85 H Lymphocytes % (Manual) 11 Monocytes % (Manual) 4 Platelet Estimate Normal RBC Morphology Normal Sodium 138 Potassium 3.5 Chloride 103 Carbon Dioxide 27 Anion Gap 11.5 BUN 15 Creatinine 1.04 H Estimated Creat Clear 65 Estimated GFR 56 L Est GFR ( Amer) 68 Glucose 132 H Calcium 8.3 L Urine Color Yellow Urine Appearance Clear Urine pH 8.0 Ur Specific Hardy 1.015 Urine Protein Negative Urine Glucose (UA) Negative Urine Ketones Negative Urine Blood Negative Urine Nitrate Negative Urine Bilirubin Negative Urine Urobilinogen 0.2 Ur Leukocyte Esterase Negative Urine RBC Occasional Urine WBC 3-5 Ur Squamous Epith Cells 3-5 Urine Bacteria Trace 12/20/18 12/20/18 06:22 06:22 WBC 12.5 H D RBC 3.90 L Hgb 11.7 L Hct 35.3 L MCV 90.6 MCH 30.0 MCHC 33.1 RDW 13.1 Plt Count 192 MPV 8.8 Neut % (Auto) 71.3 Lymph % (Auto) 21.4 Dade % (Auto) 4.5 Eos % (Auto) 2.2 Baso % (Auto) 0.5 Neut # (Auto) 9.0 H Lymph # (Auto) 2.7 Dade # (Auto) 0.6 Eos # (Auto) 0.3 Baso # (Auto) 0.1 Total Counted Neutrophils % (Manual) Lymphocytes % (Manual) Monocytes % (Manual) Platelet Estimate RBC Morphology Sodium 139 Potassium 2.9 L* Chloride 102 Carbon Dioxide 28 Anion Gap 11.9 BUN 15 Creatinine 1.01 Estimated Creat Clear 66 Estimated GFR 58 L Est GFR ( Amer) 70 Glucose 140 H Calcium 8.5 Urine Color Urine Appearance Urine pH Ur Specific Hardy Urine Protein Urine Glucose (UA) Urine Ketones Urine Blood Urine Nitrate Urine Bilirubin Urine Urobilinogen Ur Leukocyte Esterase Urine RBC Urine WBC Ur Squamous Epith Cells Urine Bacteria Labs on day of discharge: Labs from last 24 hours 12/20/18 12/20/18 06:22 06:22 WBC 12.5 H D RBC 3.90 L Hgb 11.7 L Hct 35.3 L MCV 90.6 MCH 30.0 MCHC 33.1 RDW 13.1 Plt Count 192 MPV 8.8 Neut % (Auto) 71.3 Lymph % (Auto) 21.4 Dade % (Auto) 4.5 Eos % (Auto) 2.2 Baso % (Auto) 0.5 Neut # (Auto) 9.0 H Lymph # (Auto) 2.7 Dade # (Auto) 0.6 Eos # (Auto) 0.3 Baso # (Auto) 0.1 Sodium 139 Potassium 2.9 L* Chloride 102 Carbon Dioxide 28 Anion Gap 11.9 BUN 15 Creatinine 1.01 Estimated Creat Clear 66 Estimated GFR 58 L Est GFR ( Amer) 70 Glucose 140 H Calcium 8.5 DS: Diagnosis - Discharge Diagnosis (1) Left knee DJD Status: Acute (2) Total knee replacement status Status: Acute (3) Hypokalemia Status: Acute Discharge Plan - Patient Discharge Instructions ACTIVITY: Ambulate as tolerated DIET: continue same diet Additional Instructions: -- detailed d/c instruction sheet given to patient with directions on activity, wound care, etc. -- pain Rx + lovenox Rx given -- encourage home program as dictated by PT during admission; emphasized ROM -- hinged knee brace locked in extension for ambulation, unlocked to 90 degrees while seated/supine for ROM -- ice knee with [employer] device -- patient has physical therapy appointment at [facility] Monday12/25/18 at 4pm -- follow-up with Dr. Gold 01/03/2019 at 10am Patient Instructions: DI for Knee Replacement, DI for Surgical Site Infection - Follow up Plan Follow up with: Angeles Hartman APRN [Primary Care Provider] - 12/31/18 10:00 am (follow-up with PCP within 1 month of surgery) Annette Gold MD [Physician] - 01/03/19 10:00 am (come half hour early for x-ray) Unknown provider or service follow up:: [facility] outpatient physical therapy 12/25/18 at 4pm Disposition: Home, Self-Skilled Nursing Medications: Home Medications Medication Instructions Recorded Confirmed Type budesonide-formoterol HFA 80 2 puff INHALATION BID 06/07/17 12/17/18 History mcg-4.5 mcg/actuation aerosol inhaler Diclofenac Sodium [Diclofenac 75mg 75 mg PO BID 07/19/18 12/18/18 History Tab] Omeprazole [Omeprazole 40mg 40 mg PO DAILY 07/19/18 12/17/18 History Capsule] raNITIdine HCl [Ranitidine HCl] 300 mg PO HS 07/19/18 12/18/18 History Fluoxetine HCl [Prozac 20mg 20 mg PO DAILY 12/17/18 12/17/18 History Capsule] mupirocin 2 % nasal ointment See Rx Instructions INTRANASAL BID 12/17/18 12/17/18 History Triamterene/Hydrochlorothiazid 1 tab PO DAILY 12/19/18 12/19/18 History [Maxzide-25 tablet] Enoxaparin Sodium [Lovenox 30 mg SQ Q12H #25 syringe 12/20/18 Rx 30mg/0.3mL syringe] Oxycodone HCl/Acetaminophen 1 each PO Q6HP PRN #30 tab 12/20/18 Rx [Percocet 5/325mg tablet] Prescriptions/Medication Reconciliation: New Triamterene/Hydrochlorothiazid [Maxzide-25 tablet] 1 each PO DAILY tablet Pregabalin [Lyrica 75mg Cap] 75 mg PO BID Oxycodone HCl/Acetaminophen [Percocet 5/325mg tablet] 1 each PO Q6HP PRN #30 tab PRN Reason: Moderate To Severe Pain Enoxaparin Sodium [Lovenox 30mg/0.3mL syringe] 30 mg SQ Q12H #25 syringe Continued budesonide-formoterol HFA 80 mcg-4.5 mcg/actuation aerosol inhaler 2 puff INHALATION BID Omeprazole [Omeprazole 40mg Capsule] 40 mg PO DAILY Fluoxetine HCl [Prozac 20mg Capsule] 20 mg PO DAILY raNITIdine HCl [Ranitidine HCl] 300 mg PO HS Triamterene/Hydrochlorothiazid [Maxzide-25 tablet] 1 tab PO DAILY Discontinued Diclofenac Sodium [Diclofenac 75mg Tab] 75 mg PO BID No Action mupirocin 2 % nasal ointment See Rx Instructions INTRANASAL BID - Problem Reconciliation Problems Reviewed?: Yes
[2018-12-20 13:38] LABS: Anion Gap 13.3 mEq/L (5-15); Calcium 8.3 mg/dL (8.5-10.1)
== END 2018-12-20 13:43 | disposition home or self-care (01) | DRG 470 ==
LOC: OR 09:08 → 2ND 09:12
PROVIDERS: ADMIT Orthopaedic Surgery; ATTEND Orthopaedic Surgery
CPT/HCPCS: 36415; 73560; 80048; 81001; 81025; 85007; 85025; 94640; 96374; 97110; 97116; 97161; 97166; 97535; C1713; C1776; J2405; J2704; J3370

== ENCOUNTER → 2019-01-03 09:01 | Outpatient (CLI) | payer OTHER, SELFPAY ==
--- NOTE | 2019-01-03 09:05 | XR_ITS ---
PROCEDURE: XR KNEE LT 2V CLINICAL INDICATION: Total knee Follow-up knee replacement COMPARISON: [id number] XR knee LT 4V from 04/26/2018 XR KNEE LT 2V from 12/18/2018 FINDINGS: Status post total knee replacement. There is good alignment with no evidence of orthopedic complication. Skin clips are present. Other findings:Small area of sclerosis involves the distal aspect of the femur not significantly changed IMPRESSION: Good alignment status post total knee replacement Dictated by: Desean Andrade MD 01/03/2019 09:49 Signed by: <Electronically signed by Desean Andrade MD in [place]> 01/03/2019 09:49
== END ==
PROVIDERS: PCP Nurse Practitioner Family; Visit Provider Orthopaedic Surgery
DX: Z96.652 Presence of left artificial knee joint (principal); M25.562 Pain in left knee
CPT/HCPCS: 73560

== ENCOUNTER → 2019-02-04 08:45 | Outpatient (CLI) | payer OTHER, SELFPAY ==
--- NOTE | 2019-02-04 08:48 | XR_ITS ---
PROCEDURE: XR KNEE LT 4V CLINICAL INDICATION: Knee pain COMPARISON: [id number] XR knee LT 3V from 09/18/2017 [id number] XR knee LT 4V from 04/26/2018 XR KNEE LT 2V from 12/18/2018 XR KNEE LT 2V from 01/03/2019 FINDINGS: The appearance of the total left knee prosthesis appears to be normal and stable. There is no acute fracture or abnormal alignment. There is no definite joint effusion. Soft tissues are unremarkable. IMPRESSION: No acute process. Dictated by: Ivan Morton 02/04/2019 12:54 Electronically signed by Ivan Morton in [place] 02/04/2019 12:54
== END ==
PROVIDERS: PCP Nurse Practitioner Family; Visit Provider Orthopaedic Surgery
DX: Z96.659 Presence of unspecified artificial knee joint (principal); M25.562 Pain in left knee
CPT/HCPCS: 73564

== ENCOUNTER → 2019-02-13 11:08 | Outpatient (CLI) | payer OTHER, SELFPAY ==
--- NOTE | 2019-02-13 12:00 | XR_ITS ---
PROCEDURE: XR KNEE LT 4V CLINICAL INDICATION: pain in lt knee from injury in PT COMPARISON: 02/04/2019 FINDINGS: Status post total knee replacement. Good alignment. No evidence of orthopedic complication. No acute fracture or dislocation. IMPRESSION: Status post total knee replacement with no acute finding and no significant change Dictated by: Desean Andrade MD 02/13/2019 17:56 Electronically signed by Desean Andrade MD in [place] 02/13/2019 17:56
== END ==
PROVIDERS: PCP Nurse Practitioner Family; Visit Provider Orthopaedic Surgery
DX: Z96.651 Presence of right artificial knee joint (principal)
CPT/HCPCS: 73564

== ENCOUNTER 2019-02-20 15:00 | Outpatient (RCR) | payer OTHER, SELFPAY | END 2019-02-20 15:05 | disposition home or self-care (01) | LOC: PT 15:00 | PROVIDERS: PCP Nurse Practitioner Family; Visit Provider Orthopaedic Surgery | DX: Z96.652 Presence of left artificial knee joint (principal); M25.562 Pain in left knee | CPT/HCPCS: 97010; 97014; 97016; 97110; 97140; 97163; 97164; G0283 ==

== ENCOUNTER → 2019-03-08 10:57 | Outpatient (CLI) | payer OTHER, SELFPAY ==
[2019-03-08 11:06] LABS: Basophils # 0.1 K/mm3 (0-0.2); Basophils % 1.1 % (0.1-2.0); Eosinophils # 0.3 K/mm3 (0.0-0.4); Eosinophils % 2.8 % (0.1-12.0); Hemoglobin 14.3 g/dL (12.2-16.2); Lymphocytes # 3.7 K/mm3 (0.7-4.5); Lymphocytes % 32.2 % (10-50); Mean Corpuscular Hemoglobin 30.9 pg (27.0-31.2); Mean Corpuscular Volume 90.9 fl (81-99); Mean Platelet Volume 9.3 fl (7.4-10.4); Monocytes # 0.5 K/mm3 (0.1-1.0); Monocytes % 4.2 % (1.7-9.3); Neutrophils # 6.8 K/mm3 (1.8-7.8); Neutrophils % 59.8 % (37.0-80.0); Platelet Count 307 K/mm3 (142-424); Red Blood Count 4.62 M/mm3 (4.20-5.40); Red Cell Distribution Width 13.5 % (11.5-17.5); White Blood Count 11.4 K/mm3 (4.8-10.8)
[2019-03-08 11:19] LABS: Anion Gap 12.4 mEq/L (5-15); Blood Urea Nitrogen 19 mg/dL (7-18); Calcium 9.2 mg/dL (8.5-10.1); Carbon Dioxide 28 mmol/L (21.0-32.0); Chloride 103 mmol/L (98-107); Creatinine Clearance Estimated 0 mL/min (50-200); Estimated Glomerular Filt Rate 66 ml/min (>60); GFR (African American) 80 ML/MIN (>60); Glucose 100 mg/dL (74-106); Potassium 4.4 mmoL/L (3.5-5.1); Sodium 139 mmol/L (136-145)
[2019-03-08 12:06] LABS: Erythrocyte Sedimentation Rate 41 mm/hr (0-30)
[2019-03-08 13:33] LABS: C-Reactive Protein < 0.2 mg/dL (0.0-0.9)
== END ==
PROVIDERS: Visit Provider Orthopaedic Surgery
DX: M25.562 Pain in left knee (principal)
CPT/HCPCS: 36415; 80048; 85025; 85651; 86140

== ENCOUNTER → 2019-04-29 12:47 | Outpatient (CLI) | payer OTHER, SELFPAY ==
--- NOTE | 2019-04-29 12:49 | XR_ITS ---
PROCEDURE: XR KNEE LT 4V CLINICAL INDICATION: Knee pain COMPARISON: XR KNEE LT 2V from 12/18/2018 XR KNEE LT 2V from 01/03/2019 XR KNEE LT 4V from 02/04/2019 XR KNEE LT 4V from 02/13/2019 FINDINGS: The left knee prosthesis, bone density, joint spaces and alignment are stable. There is no acute fracture. There is no joint effusion. Soft tissues are unremarkable. IMPRESSION: No acute findings. Dictated by: Ivan Morton 04/29/2019 18:22 Electronically signed by Ivan Morton in [place] 04/29/2019 18:22
== END ==
PROVIDERS: PCP Nurse Practitioner Family; Visit Provider Orthopaedic Surgery
DX: M25.562 Pain in left knee (principal); Z96.652 Presence of left artificial knee joint
CPT/HCPCS: 73564

== ENCOUNTER 2019-05-20 14:00 | Outpatient (RCR) | payer OTHER, SELFPAY ==
--- NOTE | 2019-05-13 14:12 | HMH.PTOPEV ---
PT Outpatient Evaluation Rehab PT Outpatient Evaluation Start: 05/13/19 13:25 Freq: Status: Active Protocol: Document 05/13/19 13:25 REBECCA (Rec: 05/13/19 14:12 REBECCA [id number]) Electronically Signed By Noe Crook, PT 05/13/19 13:25 Outpatient Therapy Subjective History Subjective History This is the initial Physical Therapy evaluation for Mela Carmona. Pt is a 53 y/o female refrred to PT for c /o L knne pain. Pt rperots she has had pain since TKA in 2018. Pt reports her pain is in proximal medial tibia. Pt reports MD gave cortizone injxn and pain has significanlty decreased. Pt also c/o stiffness and tightness in knee Chief Complaint Pain,Stiff Symptom Type Ache,Throb,Sharp,Stabbing Symptoms Relieved By Rest/Positioning,Ice Symptoms Aggravated By Standing,Physical Activity, Walking Prior Functional Limitations None Current Functional Limitations Housework,Squatting,Walking, Stairs Symptom Description Constant but Variable Level of pain today (0-10) 2 Pain scale - at its best (0-10) 2 Pain scale - at its worst (0-10) 8 Hip/Knee Eval Gait Observation General Gait Pattern Observation Antalgic Gait Assistive Device Assistive Devices None / NA Palpation Tenderness left Knee Palpation Finding Tenderness Knee Palpation Overall Comment TTP @ Pes Anserine MMT Knee Extension Strength Grade 5 Normal Knee Flexion Strength Grade 5 Normal ROM bilateral Knee ROM Reason Not Measured Within Functional Limits Special Tests Knee Apprehension Test Negative Left Knee Apley Compression Test Negative Left Knee Valgus Stress Test Negative Left Knee Varus Stress Test Negative Left Patellar Grind Test Negative Left Outpatient Therapy Assessment Impairments Problems/Impairmments Palpation Tenderness,Impaired Walking,Impaired Household Care,Impaired Stair Climbing, Impaired Squatting,Impaired Recreational Activities, Subjective C/O Pain,Impaired Self Care/Self Management Prognosis Rehab Potential Fair Clinical Impression Consistent with Diagnosis Yes Short Term Goals Number of Weeks
== END 2019-05-20 14:05 | disposition home or self-care (01) ==
LOC: PT 14:00
PROVIDERS: PCP Nurse Practitioner Family; Visit Provider Orthopaedic Surgery
DX: M79.652 Pain in left thigh (principal)
CPT/HCPCS: 97033; 97110; 97163

== ENCOUNTER → 2019-06-24 09:31 | Outpatient (CLI) | payer OTHER, SELFPAY ==
--- NOTE | 2019-06-24 09:40 | XR_ITS ---
PROCEDURE: XR KNEE LT 4V CLINICAL INDICATION: TKA COMPARISON: XR KNEE LT 2V from 01/03/2019 XR KNEE LT 4V from 02/04/2019 XR KNEE LT 4V from 02/13/2019 XR KNEE LT 4V from 04/29/2019 FINDINGS: No fracture or dislocation. No lytic or blastic change. Postsurgical change from total knee arthroplasty is noted. Prostheses appear appropriately seated. Other findings:None. IMPRESSION: No acute findings. Dictated by: Konrad Clay 06/24/2019 14:52 Electronically signed by Konrad Clay in [place] 06/24/2019 14:52
== END ==
LOC: RAD 09:32
PROVIDERS: PCP Nurse Practitioner Family; Visit Provider Orthopaedic Surgery
DX: M17.11 Unilateral primary osteoarthritis, right knee (principal); Z96.651 Presence of right artificial knee joint
CPT/HCPCS: 73564

== ENCOUNTER 2019-07-02 13:00 | Outpatient (RCR) | payer OTHER, SELFPAY ==
--- NOTE | 2019-06-26 15:31 | HMH.PTOPEV ---
PT Outpatient Evaluation Rehab PT Outpatient Evaluation Start: 06/26/19 14:06 Freq: Status: Active Protocol: Document 06/26/19 14:07 OSMELHERB (Rec: 06/26/19 15:31 DREWENDER [id number]) Electronically Signed By Noe Crook, PT 06/26/19 14:07 Outpatient Therapy Subjective History Subjective History This is the initial Physical Therapy evaluation for Mela Carmona. Pt is a 53 y/o female referred to PT for c/o L lat knee and thigh pain. Pt had L TKA on 12/18/18. Pt rpeorts pain in Lateral knee since surgery. Pt has been seen in PT for rehab s/p L TKA for ROM and strength and fo f /u for Greater Trochanteric bursitis and Pes anserine bursitis, all of which has resolved. Pt now c/o TTP and pain w/ activity on lateral knee and distal ITB. Chief Complaint Pain,Stiff Symptom Type Ache,Throb,Other Symptoms Relieved By Rest/Positioning,Heat,Ice Symptoms Aggravated By Physical Activity,Walking Prior Functional Limitations None Current Functional Limitations Housework,Squatting,Recreation Activity,Stairs Symptom Description Intermittent Level of pain today (0-10) 3 Pain scale - at its best (0-10) 0 Pain scale - at its worst (0-10) 7 Hip/Knee Eval Gait Observation General Gait Pattern Observation Antalgic Gait,Decrease Weight Bear (L),Decrease Stride Lngth (L) Assistive Device Assistive Devices None / NA Palpation Tenderness left Knee Palpation Finding Tenderness Knee Palpation Overall Comment Lateral Jt line and distal ITB MMT Hip Strength Reason Not Measured WFL Knee Strength Reason Not Measured WFL Special Tests Hip Tesha Test Positive Left Hip Trendelenburg Test Negative Left Knee Medial-Lateral Grind Test Negative Left Knee Valgus Stress Test Negative Left Knee Varus Stress Test Negative Left Outpatient Therapy Assessment Impairments Problems/Impairmments Palpation Tenderness,Impaired Walking,Impaired Recreational Activities,Subjective C/O Pain ,Impaired Self Care/Self Management Prognosis Rehab Potential Fair Clinical Impression Consistent with Diagnosis Yes Sh
== END 2019-07-02 13:05 | disposition home or self-care (01) ==
LOC: PT 13:00
PROVIDERS: PCP Nurse Practitioner Family; Visit Provider Orthopaedic Surgery
DX: M25.562 Pain in left knee (principal); Z96.652 Presence of left artificial knee joint
CPT/HCPCS: 97010; 97033; 97035; 97110; 97140; 97163

== ENCOUNTER → 2019-08-19 12:58 | Outpatient (CLI) | payer OTHER, SELFPAY ==
--- NOTE | 2019-08-19 13:01 | XR_ITS ---
PROCEDURE: XR KNEE LT 4V CLINICAL INDICATION: left knee pain; weightbearing Follow-up surgery COMPARISON: XR KNEE LT 4V from 02/04/2019 XR KNEE LT 4V from 02/13/2019 XR KNEE LT 4V from 04/29/2019 XR KNEE LT 4V from 06/24/2019 FINDINGS: Good alignment status post total knee replacement. No evidence of orthopedic complication. There is a faint curvilinear calcific density overlying the lateral joint space not significantly changed IMPRESSION: No change good alignment status post total knee replacement Dictated by: Desean Andrade MD 08/19/2019 14:36 Electronically signed by Desean Andrade MD in [place] 08/19/2019 14:36
--- NOTE | 2019-08-19 14:59 | XR_ITS ---
PROCEDURE: XR LUMBAR SPINE 2-3V CLINICAL INDICATION: weightbearing views Low back pain COMPARISON: LS5 LUMBAR SPINE 5 VIEWS from 04/08/2015 FINDINGS: There is normal alignment. No fracture or dislocation. No lytic or blastic change. There is minimal anterolisthesis of L4 on L5 of 1-2 mm IMPRESSION: No acute findings. Dictated by: Desean Andrade MD 08/19/2019 17:11 Electronically signed by Desean Andrade MD in [place] 08/19/2019 17:11
--- NOTE | 2019-08-19 14:59 | XR_ITS ---
PROCEDURE: XR HIP LT 2-3V W/PELVIS CLINICAL INDICATION: left hip pain, weightbearing COMPARISON: [id number] HIP LT 2-3V W/PELVIS IF PERFOR from 04/07/2017 FINDINGS: There are mild osteoarthritic changes of the left hip. No fracture or dislocation. No lytic or blastic change. A small calcific density is present lateral to the left hip and may be due to an overlying injection granuloma. Incidental note is made of mild osteoarthritis also of the right hip as seen on the AP view of the pelvis. Mild osteoarthritic changes are also present involving the SI joints IMPRESSION: Mild osteoarthritic change Dictated by: Desean Andrade MD 08/19/2019 16:23 Electronically signed by Desean Andrade MD in [place] 08/19/2019 16:23
== END ==
LOC: RAD 12:59
PROVIDERS: PCP Nurse Practitioner Family; Visit Provider Orthopaedic Surgery
DX: M70.52 Other bursitis of knee, left knee (principal); Z96.652 Presence of left artificial knee joint; M54.9 Dorsalgia, unspecified; M25.552 Pain in left hip
CPT/HCPCS: 72100; 73502; 73564

== ENCOUNTER → 2019-08-26 16:19 | Outpatient (CLI) | payer OTHER, SELFPAY ==
--- NOTE | 2019-08-26 16:27 | XR_ITS ---
PROCEDURE: XR CHEST 2V CLINICAL HISTORY: CHEST PAIN,SOB COMPARISON: CXR CHEST(2 VIEWS-NOT PORTABLE) from 06/28/2016 CXR CHEST(2 VIEWS-NOT PORTABLE) from 10/12/[address] CHEST W/ CONTRAST from 02/03/2017 CXR2V XR chest 2V from 08/17/2017 FINDINGS: There has been a prior median sternotomy. The heart size is normal. Pericardial fat pad is noted on the right. Fibrotic changes are present in the anterior clear space and left lung base. No lobar consolidation or collapse. No acute bony abnormalities. IMPRESSION: Chronic changes, no acute finding Dictated by: Desean Andrade MD 08/26/2019 20:10 Electronically signed by Desean Andrade MD in [place] 08/26/2019 20:10
[2019-08-26 16:36] LABS: Basophils # 0.2 K/mm3 (0-0.2); Basophils % 1.3 % (0.1-2.0); Eosinophils # 0.2 K/mm3 (0.0-0.4); Eosinophils % 1.4 % (0.1-12.0); Hematocrit 41.6 % (37.0-47.0); Lymphocytes # 3.8 K/mm3 (0.7-4.5); Lymphocytes % 30.3 % (10-50); Mean Corpuscular HGB Conc 33.8 g/dL (31.8-35.4); Mean Corpuscular Hemoglobin 29.4 pg (27.0-31.2); Mean Corpuscular Volume 87.1 fl (81-99); Monocytes # 0.6 K/mm3 (0.1-1.0); Monocytes % 4.5 % (1.7-9.3); Neutrophils # 7.8 K/mm3 (1.8-7.8); Neutrophils % 62.5 % (37.0-80.0); Platelet Count 271 K/mm3 (142-424); Red Blood Count 4.78 M/mm3 (4.20-5.40); Red Cell Distribution Width 12.7 % (11.5-17.5); White Blood Count 12.5 K/mm3 (4.8-10.8)
[2019-08-26 16:40] LABS: Chloride 100 mmol/L (98-107); Potassium 3.9 mmoL/L (3.5-5.1); Sodium 138 mmol/L (136-145)
[2019-08-26 16:42] LABS: Alanine Aminotransferase 14 U/L (12-78); Alkaline Phosphatase 59 U/L (38-126); Anion Gap 14.9 mEq/L (5-15); Aspartate Amino Transferase 21 U/L (14-36); Bilirubin,Total 0.4 mg/dl (0.2-1.3); Blood Urea Nitrogen 32 mg/dl (7-17); Carbon Dioxide 27 mmol/L (22.0-30.0); Estimated Glomerular Filt Rate 43 ml/min (>60); GFR (African American) 52 ML/MIN (>60)
[2019-08-26 16:43] LABS: Albumin Level 4.4 g/dl (3.5-5.0); Albumin/Globulin Ratio 1.4 (1.1-1.8); Calcium 9.4 mg/dl (8.4-10.2); Chol/HDL Ratio 3.8 (1-3.5); Cholesterol 265 mg/dl (140-200); Globulin 3.1 g/dL (1.3-3.2); Glucose 113 mg/dl (74-100); HDL Cholesterol 69 mg/dl (40-60); Magnesium 2.1 mg/dl (1.6-2.3); Total Protein,Serum 7.5 g/dl (6.3-8.2); Triglycerides 146 mg/dl (30-150); VLDL Cholesterol 29 mg/dL (0-40)
[2019-08-26 16:49] LABS: C-Reactive Protein 2.8 mg/L (0-4)
[2019-08-26 16:54] LABS: Direct LDL Cholesterol 183.15 mg/dL (100-129)
[2019-08-26 17:02] LABS: Troponin I < 0.01 ng/ml (0.00-0.034)
== END ==
PROVIDERS: PCP Nurse Practitioner Family; Visit Provider Nurse Practitioner Family
DX: R07.9 Chest pain, unspecified (principal); R06.02 Shortness of breath
CPT/HCPCS: 36415; 71046; 80053; 80061; 83735; 84484; 85025; 86140

== ENCOUNTER → 2019-11-01 09:59 | Outpatient (CLI) | payer OTHER, SELFPAY ==
--- NOTE | 2019-11-01 10:04 | XR_ITS ---
PROCEDURE: XR KNEE RT 4V CLINICAL INDICATION: right knee pain COMPARISON: No exams were available for comparison FINDINGS: There is mild degenerative narrowing of the medial and the patellofemoral joint spaces. Soft tissues are intact. There is no fracture or dislocation. IMPRESSION: Mild degenerative narrowing of the medial patellofemoral joint spaces, no fracture Dictated by: Leon Jamison 11/01/2019 10:53 Electronically signed by Leon Jamison in [place] 11/01/2019 10:53
== END ==
LOC: RAD 10:01
PROVIDERS: PCP Nurse Practitioner Family; Visit Provider Orthopaedic Surgery
DX: M25.561 Pain in right knee (principal)
CPT/HCPCS: 73564

== ENCOUNTER → 2020-01-10 15:27 | Outpatient (CLI) | payer OTHER, SELFPAY ==
--- NOTE | 2020-01-10 15:50 | XR_ITS ---
PROCEDURE: XR KNEE LT 3V CLINICAL INDICATION: LT TKA FU Follow-up total knee arthroplasty COMPARISON: CR XR KNEE LT 4V from 04/29/2019 CR XR KNEE LT 4V from 06/24/2019 CR XR KNEE LT 4V from 08/19/2019 CR XR KNEE RT 4V from 11/01/2019 FINDINGS: Status post total knee arthroplasty with good alignment. No evidence of orthopedic complication. A small calcific density is present projecting over the lateral joint space posteriorly IMPRESSION: Good alignment status post total knee arthroplasty Dictated by: Desean Andrade MD 01/10/2020 19:06 Desean Andrade MD in [place] 01/10/2020 19:06
== END ==
LOC: RAD 15:29
PROVIDERS: PCP Nurse Practitioner Family; Visit Provider Orthopaedic Surgery
DX: Z96.659 Presence of unspecified artificial knee joint (principal)
CPT/HCPCS: 73562

== ENCOUNTER → 2020-02-06 15:08 | Outpatient (CLI) | payer OTHER, SELFPAY | PROVIDERS: PCP Nurse Practitioner Family; Visit Provider Nurse Practitioner Family | DX: Z03.818 Encounter for observation for suspected exposure to other biological agents ruled out (principal) | CPT/HCPCS: U0003 ==

== ENCOUNTER → 2020-02-19 15:06 | Outpatient (CLI) | payer OTHER, SELFPAY ==
--- NOTE | 2020-02-19 15:11 | MR_ITS ---
PROCEDURE: MR HEAD/BRAIN WO CON CLINICAL INDICATION: NEW ONSET HEADACHE, DIZZINESS PT C/O DIZZINESS AND H/A X 1 MONTH. PT DENIES TRAUMA OR INJURY. COMPARISON: No exams were available for comparison TECHNIQUE: Routine multiplanar multi echo sequences are performed without gadolinium enhancement. FINDINGS: No midline shift, mass effect, intracranial hemorrhage, or hydrocephalus is evident. The cerebellopontine angles, cerebellum, and brainstem have an unremarkable appearance. The no evidence of acute infarction. No abnormal white matter signal intensity apparent. The hippocampal gyri are unremarkable in the temporal horns are symmetric. The pituitary, optic chiasm, corpus callosum, and craniocervical junction have an unremarkable appearance. There is only minimal amount of fluid signal intensity in the right mastoid sinus. No sinus air-fluid level. IMPRESSION: Essentially negative MRI of the brain. No acute intracranial findings evident. There is minimal fluid signal intensity in the right mastoid sinus of questionable clinical significance. Dictated by: Desean Andrade MD 02/20/2020 13:39 Desean Andrade MD in [place] 02/20/2020 13:39
== END ==
LOC: RAD 15:08
PROVIDERS: PCP Nurse Practitioner Family; Visit Provider Nurse Practitioner Family
DX: R51.9 Headache, unspecified (principal); R42 Dizziness and giddiness
CPT/HCPCS: 70551

== ENCOUNTER 2020-02-20 18:37 | Emergency (ER) | payer OTHER, SELFPAY ==
[2020-02-20 18:45] VITALS: BP 110/72; PULSE 67; RESP 16; TEMP 36.7; O2SAT 100; BMI 40.7
[2020-02-20 18:51] VITALS: BP 110/72; PULSE 67; RESP 16; TEMP 36.7; O2SAT 100; BMI 40.8
--- NOTE | 2020-02-20 19:28 | XR_ITS ---
PROCEDURE: XR HIP LT 2-3V W/PELVIS CLINICAL INDICATION: fall Posttraumatic pain COMPARISON: CR XR HIP LT 2-3V W/PELVIS from 08/19/2019 FINDINGS: No acute fracture or dislocation. Mild osteoarthritis involves both hips. IMPRESSION: Osteoarthritis otherwise negative Dictated by: Desean Andrade MD 02/21/2020 05:53 Desean Andrade MD in [place] 02/21/2020 05:53
--- NOTE | 2020-02-20 19:28 | XR_ITS ---
PROCEDURE: XR ANKLE LT MIN 3V CLINICAL INDICATION: fall Posttraumatic pain COMPARISON: CR ANKL3 ANKLE-LT-3 VIEWS from 02/14/2015 FINDINGS: No fracture or dislocation. No lytic or blastic change. There is a prominent calcaneal spur and an Achilles enthesophyte IMPRESSION: No acute findings. Dictated by: Desean Andrade MD 02/21/2020 05:50 Desean Andrade MD in [place] 02/21/2020 05:50
--- NOTE | 2020-02-20 19:28 | XR_ITS ---
PROCEDURE: XR KNEE LT 3V CLINICAL INDICATION: fall Posttraumatic pain COMPARISON: CR XR KNEE LT 4V from 08/19/2019 CR XR KNEE RT 4V from 11/01/2019 CR XR KNEE LT 3V from 01/10/2020 CR XR KNEE RT 3V from 02/20/2020 FINDINGS: Status post total knee replacement with good alignment. No fracture or dislocation. Small curvilinear calcific density is present along the posterior aspect of the knee joint laterally unchanged IMPRESSION: Status post total knee replacement with no acute finding Dictated by: Desean Andrade MD 02/21/2020 05:51 Desean Andrade MD in [place] 02/21/2020 05:51
--- NOTE | 2020-02-20 19:28 | XR_ITS ---
PROCEDURE: XR KNEE RT 3V CLINICAL INDICATION: fall COMPARISON: CR XR KNEE LT 4V from 06/24/2019 CR XR KNEE LT 4V from 08/19/2019 CR XR KNEE RT 4V from 11/01/2019 CR XR KNEE LT 3V from 01/10/2020 FINDINGS: No fracture or dislocation. No lytic or blastic change. There is normal mineralization. There are mild osteoarthritic changes involving all 3 compartments. There may be a small suprapatellar effusion. Other findings:None. IMPRESSION: Osteoarthritis otherwise negative Dictated by: Desean Andrdae MD 02/21/2020 05:52 Desean Andrade MD in [place] 02/21/2020 05:52
--- NOTE | 2020-02-20 19:58 | HMH.EDUTC ---
[facility] [place]ression: Left hip pain Fall Qualifiers: Encounter type: initial encounter Qualified Code(s): W19.XXXA - Unspecified fall, initial encounter Bilateral knee pain Qualifiers: Chronicity: acute Qualified Code(s): M25.561 - Pain in right knee Left ankle pain Qualifiers: Chronicity: acute Qualified Code(s): M25.572 - Pain in left ankle and joints of left foot Left ankle sprain Qualifiers: Encounter type: initial encounter Involved ligament of ankle: unspecified ligament Qualified Code(s): S93.402A - Sprain of unspecified ligament of left ankle, initial encounter History of total knee replacement Qualifiers: Laterality: left Qualified Code(s): Z96.652 - Presence of left artificial knee joint Disposition: Home, Self-Care Condition on Discharge: Good Instructions: DI for Knee Sprain, DI for Ankle Sprain Additional Instructions: Rest the extremities, apply ice for 15 minutes as tolerated three or four times per day, Wear the dyan wraps for compression, Elevate the extremities as tolerated while you are resting. Follow up with Dr. Gold. Follow up with your regular doctor. GO TO THE ER FOR ANY WORSENING SYMPTOMS Referrals: Angeles Hartman APRN [Primary Care Provider] - Time of Disposition: 20:39 Medical Decision Making - Medical Records Medical records reviewed: No: I reviewed the patient's medical records. - Anatoly Inquiry Pt receiving controlled substance: No Vital Signs: 02/20/20 18:45 02/20/20 18:51 02/20/20 20:40 Temperature 98.1 F 98.1 F 98.1 F Temperature Source Oral Oral Oral Pulse Rate 67 Pulse Rate [Right Radial] 67 67 Respiratory Rate 16 16 16 Blood Pressure 110/72 Blood Pressure [Right Arm] 110/72 110/72 Blood Pressure Mean [Right Arm] 84 84 Blood Pressure Source Automatic Cuff Blood Pressure Source [Right Arm] Automatic Cuff Blood Pressure Position Sitting Blood Pressure Position [Right Arm] Sitting 02 Sat by Pulse Oximetry 100 100 Oxygen Delivery Method Room Air Room Air Room Air Orders (Tests/Meds): ORDERS Category Date Time Status XR ankle LT min 3V Stat Exams 02/20/20 19:28 Taken XR hip LT 2-3V w/pelvis Stat Exams 02/20/20 19:28 Taken XR knee LT 3V Stat Exams 02/20/20 19:28 Taken XR knee RT 3V Stat Exams 02/20/20 19:28 Taken [facility] [place] - General Stated complaint: AO fall 02/20/208 Time Seen by Provider: 02/20/20 19:58 Mode of Arrival: Ambulatory Source of Information: Patient Limitations: No Limitations Description of Symptoms (Recalled from Triage Doc. by RN): pt states that she fell down 2 steps while carrying a table and injured her left knee/ankle and her right knee. -loc. -neck/back/head injury. HEENT Symptoms (Recalled from RN notes): No Resp Symptoms (Recalled from RN notes): No Skin Symptoms (Recalled from RN notes): No MS Symptoms (Recalled from RN notes): Yes Functional Status (Recalled from RN notes): wnl - History of Present Illness Provider Complaint: Earlier this evening she was helping to carry a table when she tripped and came down on her knees. She also twisted her left ankle and came down on her left hip also. She states that she is having bilateral knee pain, left ankle pain and left hip pain. She has a history of left knee total replacement. - Related Data Home Medications Medication Instructions Recorded Confirmed budesonide-formoterol HFA 80 2 puff INHALATION BID 06/07/17 02/14/20 mcg-4.5 mcg/actuation aerosol inhaler Triamterene/Hydrochlorothiazid 1 tab PO DAILY 12/19/18 02/14/20 [Maxzide-25 tablet] pantoprazole 40 mg tablet,delayed 40 mg PO DAILY 08/27/19 02/14/20 release trazodone 50 mg tablet 50 mg PO QHS tab 08/27/19 02/14/20 fluoxetine 20 mg capsule 20 mg PO DAILY cap 09/17/19 02/14/20 Previous Rx's Medication Instructions Recorded bisoprolol fumarate 5 mg tablet 2.5 mg PO DAILY #15 tab 08/27/19 rosuvastatin 5 mg tablet 5 mg PO DAILY #30
[2020-02-20 20:40] VITALS: BP 110/72; PULSE 67; RESP 16; TEMP 36.7; O2SAT 100
== END 2020-02-20 20:41 | disposition home or self-care (01) ==
PROVIDERS: Emergency Provider Nurse Practitioner Family; PCP Nurse Practitioner Family
DX: S93.402A Sprain of unspecified ligament of left ankle, initial encounter (principal); M25.561 Pain in right knee; M25.552 Pain in left hip; Z96.652 Presence of left artificial knee joint; W10.9XXA Fall (on) (from) unspecified stairs and steps, initial encounter; Y92.019 Unspecified place in single-family (private) house as the place of occurrence of the external cause; I10 Essential (primary) hypertension; F41.8 Other specified anxiety disorders; K21.9 Gastro-esophageal reflux disease without esophagitis; E78.5 Hyperlipidemia, unspecified; F17.210 Nicotine dependence, cigarettes, uncomplicated
CPT/HCPCS: 73502; 73562; 73610; 99201

== ENCOUNTER → 2020-02-26 10:44 | Outpatient (CLI) | payer OTHER, SELFPAY ==
--- NOTE | 2020-02-26 10:46 | MM_ITS ---
PROCEDURE: MM DIG SCREENING MAMM BI W/CAD Digital Breast Tomosynthesis Included CLINICAL INDICATION: SCREENING There is a history of breast cancer in the patient's paternal aunt and paternal cousin. COMPARISON: MG DMSB DIG MAMM-SCREEN LOKESH from 08/13/2015 MG DMSB DIG MAMM-SCREEN LOKESH W/CAD from 09/29/2016 MG DIG MAMM-SCREEN LOKESH from 12/12/2018 TECHNIQUE: Standard CC and MLO images and 3D Tomosynthesis was obtained. R2 CAD reviewed. FINDINGS: The breasts are composed primarily of fat with mild to moderate scattered fibroglandular densities throughout each breast. There is stable mild asymmetric glandular elements central portion left breast. There is no suspicious lesion and no suspicious microcalcifications. IMPRESSION: Fibrofatty parenchyma with no suspicious lesions seen BI-RAD Category: 1 Negative FOLLOW-UP: 1YR 1 Year Follow-up (A letter has been sent to the patient regarding results of the study.) Dictated by: Dr. Avel Bradley MD 02/26/2020 19:12 Dr. Avel Bradley MD in [place] 02/26/2020 19:12
== END ==
PROVIDERS: PCP Nurse Practitioner Family; Visit Provider Nurse Practitioner Family
DX: Z12.31 Encounter for screening mammogram for malignant neoplasm of breast (principal)
CPT/HCPCS: 77063; 77067

== ENCOUNTER → 2020-05-26 12:58 | Outpatient (POV) | payer OTHER, SELFPAY | PROVIDERS: Visit Provider Dermatology | DX: Z00.00 Encounter for general adult medical examination without abnormal findings (principal) ==

== ENCOUNTER → 2020-06-04 13:28 | Outpatient (CLI) | payer MEDICARE, SELFPAY ==
--- NOTE | 2020-06-04 13:33 | XR_ITS ---
PROCEDURE: XR HIP LT 2-3V W/PELVIS CLINICAL INDICATION: LT hip pain COMPARISON: CR XR HIP LT 2-3V W/PELVIS from 02/20/2020 FINDINGS: There are mild osteoarthritic changes of the left hip. No fracture or dislocation. No lytic or blastic change. IMPRESSION: Mild osteoarthritis of the left hip Dictated by: Desean Andrade MD 06/04/2020 14:58 Desean Andrade MD in [place] 06/04/2020 14:58
--- NOTE | 2020-06-04 13:33 | XR_ITS ---
PROCEDURE: XR HIP RT 2-3V W/PELVIS CLINICAL INDICATION: Rt hip Right hip pain COMPARISON: CR XR HIP LT 2-3V W/PELVIS from 02/20/2020 FINDINGS: There are mild osteoarthritic changes of the right hip and right SI joint. No acute fracture or dislocation evident. No lytic or blastic change. IMPRESSION: Mild osteoarthritis of the right hip Dictated by: Desean Andrade MD 06/04/2020 14:57 Desean Andrade MD in [place] 06/04/2020 14:57
== END ==
LOC: RAD 13:31
PROVIDERS: PCP Nurse Practitioner Family; Visit Provider Orthopaedic Surgery
DX: M25.551 Pain in right hip (principal); M25.552 Pain in left hip
CPT/HCPCS: 73502

== ENCOUNTER → 2020-07-06 10:46 | Outpatient (POV) | payer MEDICARE, SELFPAY ==
[2020-07-06 11:15] VITALS: BMI 41.0
--- NOTE | 2020-07-06 13:37 | HMH.PMCON ---
Assessment and Plan (1) Sacroiliitis Status: Chronic Category: Medical Code(s): M46.1 - Sacroiliitis, not elsewhere classified - Assessment and plan all Dx Assessment and Plan for all problems:: We will schedule patient for left SI joint injection. I will follow-up with her after this reassess her symptoms at that time she has been instructed to call the office if she has any issues prior to her next appointment. Dr. Savage has reviewed this note and agrees with this plan of care. This note was dictated using voice recognition software and may contain errors or omissions HPI - Data of Consult Patient: new to practice Consult date: 07/06/20 Requesting Physician: Erlinda Rangel APRN Primary Care Provider: Angeles Hartman APRN - Consult Narrative Reason for consult: Hip pain History of present illness: Ms. Carmona is a 54 year old female who presents today for consultation regards to her left hip pain. She is had it for several years however it did worsen after her left knee replacement. It is in her left hip and her buttock and leg. She does have bursitis. Patient has had bursa and hip injections by Dr. Schaefer in the past with no relief. She is tried a chiropractor with no relief she is completed physical therapy with no relief. Patient tried and failed diclofenac, gabapentin, tramadol. She rates her pain today a 5 out of 10. Patient states that the pain is beginning to make activity quite difficult for her. CC: Erlinda Rangel APRN [facility] History I have reviewed the patient's past medical history: Yes Medical History: Reports:: Anxiety, Asthma, Congestive Heart Failure, Depression, Gastroesophageal Reflux Disease(GERD), Hyperlipidemia, Hypertension, Lung Disease Denies:: Cancer, Diabetes Mellitus Type 1, Diabetes Mellitus Type 2, Internal Pacemaker, MRSA, Seizures *Have you ever received a pneumonia vaccine?: Yes *Have you received a flu vaccine this season?: Yes Other Medical History: Reports: Other. Denies: Blood Transfusion Reaction Laterality Cases: Right: Arthroscopy Shoulder, Bilateral: Tonsillectomy, Other Other Surgeries: Yes: Colonoscopy, Tubal Ligation. No: Pacemaker Amputation: No Fractures: No - *Social History Smoking Status: Current every day smoker Tobacco Type: cigarettes # Packs/Day (cigarettes): 1 Alcohol Intake: never Substance Use Type: denies use *Occupational Status:: employed Housing: house Household Members: spouse *Travel in the last 8 weeks: None - Psychiatric History Pschychiatric History:: Reports:: Anxiety, Depression Family Hx:: Unable to obtain Review of Systems - Review of Systems ROS General: no recent weight change, no fever, no sleep disturbances Respiratory: no cough, no shortness of air, no recurring pulmonary infections Cardiovascular/Peripheral Vascular: No chest pain, No palpitations, no edema, no shortness of breath. Gastrointestinal: no new onset incontinence, normal bowel movements reported Genitourinary: no new onset incontinence Musculoskeletal: Back pain, SI joint pain Psychiatric: normal mood/ affect back Neurological: [denies new onset weakness in extremities], [denies new onset balance issues] Meds Home Medications Medication Instructions Recorded Confirmed Type budesonide-formoterol HFA 80 2 puff INHALATION BID 06/07/17 06/05/20 History mcg-4.5 mcg/actuation aerosol inhaler Triamterene/Hydrochlorothiazid 1 tab PO DAILY 12/19/18 06/05/20 History [Maxzide-25 tablet] pantoprazole 40 mg tablet,delayed 40 mg PO DAILY 08/27/19 06/05/20 History release trazodone 50 mg tablet 50 mg PO QHS tab 08/27/19 06/05/20 History gabapentin 600 mg tablet 600 mg PO TID 06/05/20 06/05/20 History sertraline 100 mg tablet 100 mg PO DAILY 06/05/20 06/05/20 History tramadol 100 mg tablet 100 mg PO Q4-6H PRN 06/05/20 06/05/20 History Allergies Allergy/AdvReac Type Severity Reaction Status Date / Time atorvastatin AdvReac Inte
== END ==
PROVIDERS: PCP Nurse Practitioner Family; Visit Provider Clinical Nurse Specialist Family Health
DX: M46.1 Sacroiliitis, not elsewhere classified (principal)
CPT/HCPCS: 99202; G0463

== ENCOUNTER 2020-07-10 10:33 | Day surgery (SDC) | payer MEDICARE, SELFPAY ==
[2020-07-10 11:09] VITALS: BP 114/61; PULSE 65; RESP 14; TEMP 36.7; O2SAT 98; BMI 41.0
[2020-07-10 12:11] VITALS: BP 142/74; PULSE 74
[2020-07-10 12:12] VITALS: BP 141/75; PULSE 74; RESP 18; O2SAT 98
--- NOTE | 2020-07-10 12:12 | P.PCN_ITS ---
- Procedure Date: 07/10/20 Time: 12:13 Anesthesiologist:: Nato Savage MD Complications:: None Pre-procedure Diagnosis:: Sacroiliitis Post-procedure Diagnosis:: Same Indications for Procedure:: Patient is a pleasant 54-year-old white female who we are treating for left- sided hip pain. She is tender over the left SI joint. She does have a positive Jesus Alberto's test on left side. She has positive SI joint compression test on left side. She has a positive distraction test on left side. She has a positive Greg test on the left side. We will do a left SI joint injection under fluoroscopy today to help with pain symptoms. Procedure Details:: Left SI joint injection under fluoroscopy Informed consent was obtained and the risks and benefits of the procedure was explained to the patient. Patient was taken to the procedure room. Patient was placed prone on the procedure table. The left hip was prepped using ChloraPrep. The skin and subcutaneous tissues were anesthetized using lidocaine. I placed a 22-gauge spinal needle into the inferior aspect of the left SI joint. Needle placement was confirmed with dye. After this we injected 5 mL bupivacaine 0.25% and Depo-Medrol 40 mg into the left SI joint. The patient tolerated the procedure well with no complication. Plan and Disposition:: We will follow-up with her in 2 weeks. Will reevaluate symptoms at that time.
[2020-07-10 12:30] VITALS: BP 116/61; PULSE 65; RESP 14; TEMP 36.7; O2SAT 98
== END 2020-07-10 12:15 | disposition home or self-care (01) ==
LOC: SC.PAINP 10:34
PROVIDERS: PCP Nurse Practitioner Family; Visit Provider Anesthesiology
DX: M46.1 Sacroiliitis, not elsewhere classified (principal); E78.5 Hyperlipidemia, unspecified; I11.0 Hypertensive heart disease with heart failure; I50.9 Heart failure, unspecified; J45.909 Unspecified asthma, uncomplicated; K21.9 Gastro-esophageal reflux disease without esophagitis; I49.9 Cardiac arrhythmia, unspecified; Z88.8 Allergy status to other drugs, medicaments and biological substances; Z72.0 Tobacco use; F41.9 Anxiety disorder, unspecified; F32.9 Major depressive disorder, single episode, unspecified
CPT/HCPCS: 27096; G0260; J1040; Q9966

== ENCOUNTER → 2020-08-06 11:40 | Outpatient (POV) | payer MEDICARE, SELFPAY ==
[2020-08-06 12:21] VITALS: BP 138/88; PULSE 88; RESP 18; O2SAT 98; BMI 42.3
--- NOTE | 2020-08-06 12:23 | P.CONS_ITS ---
[facility] Pain Management SOAP Note Subjective:: 54-year-old white female who presents today for follow-up after left SI joint injection. Patient got about 1 week relief her pain is now returned however is a little bit different radiating from her lower back into her left calf. Patient rates her pain today a 5 out of 10. Patient only has pain on the left side. It is worse when she is up standing and walking. We discussed transforaminal epidural injection she is interested in proceeding. She is not on any anticoagulation care therapy. ROS General: no recent weight change, no fever, no sleep disturbances Respiratory: no cough, no shortness of air, no recurring pulmonary infections Cardiovascular/Peripheral Vascular: No chest pain, No palpitations, no edema, no shortness of breath. Gastrointestinal: no new onset incontinence, normal bowel movements reported Genitourinary: no new onset incontinence Musculoskeletal: Back pain, leg pain Psychiatric: normal mood/ affect Neurological: [denies new onset weakness in extremities], [denies new onset balance issues] Objective:: Physical Exam General: Alert and oriented x3, no acute distress, pleasant and cooperative, [on room air] Lungs: Resps E/U, Symmetrical chest expansion, Eyes: PERRL Musculoskeletal: Flexion and extension of lumbar spine somewhat guarded secondary to pain, deep tendon reflexes normal, strength in upper and lower extremities [5/5], [abnormal gait noted] Neurological: speech clear, 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 I will follow-up with her after this reassess her symptoms at that time she has been instructed to call the office if she has any issues prior to her next appointment. Dr. Savage has reviewed this note and agrees with this plan of care. This note was dictated using voice recognition software and may contain errors or omissions [facility] History I have reviewed the patient's past medical history: Yes Medical History: Reports:: Anxiety, Arrhythmia, Asthma, Congestive Heart Failure, Depression, Gastroesophageal Reflux Disease(GERD), Hyperlipidemia, Hypertension, Lung Disease Denies:: Cancer, Diabetes Mellitus Type 1, Diabetes Mellitus Type 2, Internal Pacemaker, MRSA, Seizures *Have you ever received a pneumonia vaccine?: No *Have you received a flu vaccine this season?: No Other Medical History: Reports: Other. Denies: Blood Transfusion Reaction Laterality Cases: Right: Arthroscopy Shoulder, Bilateral: Tonsillectomy, Other Other Surgeries: Yes: Colonoscopy, Tubal Ligation, Other (thymus gland removal). No: Pacemaker Amputation: No Fractures: No - *Social History Smoking Status: Current every day smoker Tobacco Type: cigarettes # Packs/Day (cigarettes): 1 Alcohol Intake: never Substance Use Type: denies use *Occupational Status:: employed Housing: house Household Members: spouse *Travel in the last 8 weeks: None - Psychiatric History Pschychiatric History:: Reports:: Anxiety, Depression Family Hx:: Unable to obtain
== END ==
PROVIDERS: PCP Nurse Practitioner Family; Visit Provider Clinical Nurse Specialist Family Health
DX: M51.16 Intervertebral disc disorders with radiculopathy, lumbar region (principal)
CPT/HCPCS: 99212; G0463

== ENCOUNTER 2020-08-14 11:22 | Day surgery (SDC) | payer MEDICARE, SELFPAY ==
[2020-08-14 11:37] VITALS: BP 123/58; PULSE 67; RESP 18; TEMP 36.4; O2SAT 98; BMI 42.3
[2020-08-14 11:54] VITALS: BP 142/79; PULSE 68; RESP 18; O2SAT 98
[2020-08-14 11:56] VITALS: BP 140/79; PULSE 86; RESP 18; O2SAT 98
[2020-08-14 12:04] VITALS: BP 137/74; PULSE 65; RESP 18; O2SAT 98
--- NOTE | 2020-08-14 12:04 | P.PCN_ITS ---
- Procedure Date: 08/14/20 Time: 12:04 Anesthesiologist:: Nato Savage MD Complications:: None Pre-procedure Diagnosis:: Degenerative disc disease of lumbar spine with left leg radicular symptoms Post-procedure Diagnosis:: Same Indications for Procedure:: Patient is a pleasant 54-year-old white female who we are treating for left- sided hip pain left leg pain. She had a left SI joint injection which did help her tremendously. She now has some residual left leg radicular symptoms. We will do a left L4-L5 and L5-S1 transforaminal epidural steroid injection to see if this helps with her left leg radicular symptoms. Procedure Details:: Transforaminal epidural steroid injection Informed consent was obtained the risk and benefits of the procedure were exp lained to the patient. Patient was taken the procedure room. Back was prepped using ChloraPrep. I placed 22-gauge spinal needles into the intervertebral foramen of L4-5 and L5-S1 on the left side. Needle placement was confirmed with dye. After this we injected 5 mL bupivacaine 0.25% and Depo-Medrol 40 mg into each transforaminal epidural space of L4-5 and L5-S1. We used a total of 80 mg Depo-Medrol for both levels on the left side. Patient tolerated procedure well with no complications. Plan and Disposition:: We will follow-up with her in 2 weeks. Will reevaluate symptoms at that time.
== END 2020-08-14 12:05 | disposition home or self-care (01) ==
LOC: SC.PAINP 11:23
PROVIDERS: PCP Nurse Practitioner Family; Visit Provider Anesthesiology
DX: M51.16 Intervertebral disc disorders with radiculopathy, lumbar region (principal); I11.0 Hypertensive heart disease with heart failure; K21.9 Gastro-esophageal reflux disease without esophagitis; I50.9 Heart failure, unspecified; Z72.0 Tobacco use; Z88.8 Allergy status to other drugs, medicaments and biological substances
CPT/HCPCS: 64483; 64484; J1030; Q9966

== ENCOUNTER → 2020-08-22 10:30 | Outpatient (CLI) | payer MEDICARE, SELFPAY ==
[2020-08-22 12:15] LABS: Coronavirus 19 IgG Antibody Negative (Negative); Coronavirus 19 IgM Antibody Negative (Negative)
== END ==
PROVIDERS: Visit Provider Internal Medicine Gastroenterology
DX: Z01.812 Encounter for preprocedural laboratory examination (principal); Z11.52 Encounter for screening for COVID-19; Z13.810 Encounter for screening for upper gastrointestinal disorder; R10.9 Unspecified abdominal pain; K21.9 Gastro-esophageal reflux disease without esophagitis
CPT/HCPCS: 36415; 86328

== ENCOUNTER 2020-08-24 08:27 | Day surgery (SDC) | payer MEDICARE, SELFPAY ==
[2020-08-18 13:20] VITALS: BMI 42.3
[2020-08-24] VITALS (8 sets, daily range): BP systolic 100–112; BP diastolic 48–65; PULSE 53–67; RESP 16–18; TEMP 36.2–37.2; O2SAT 97–100
--- NOTE | 2020-08-24 09:51 | HMH.ANESCL ---
[facility] Anesthesia Checklist - Patient Identification Patient Identification: Arm Band - Structural Data Admitted From: Home Planned Operative Procedure/s: egd Consent for Planned Operative Procedure(s) Verified: Yes Verified Documents: Surgical Consent, History and Physical - NPO Status Verified Time NPO: 00:00 - Additional verifications Anesthesia Reactions: No Hx Blood Transfusions: No Blood Transfusion Reaction: No - Airway Assessment C-Spine Mobility Assessed: Yes (mp2) TMJ Mobility Assessed: Yes Dentition: Good Dentition - Neurological Assessment Level of Consciousness: Awake, Alert - Anesthesia Plan Anesthesia Risk discussed: Yes Anesthesia Plan: Verified ASA Class: III Anesthesia Type: MAC [facility] History I have reviewed the patient's past medical history: Yes Medical History: Reports:: Anxiety, Arrhythmia, Asthma, Congestive Heart Failure, Depression, Gastroesophageal Reflux Disease(GERD), Hyperlipidemia, Hypertension (for fluid more), Lung Disease Denies:: Cancer, Diabetes Mellitus Type 1, Diabetes Mellitus Type 2, Internal Pacemaker, MRSA, Seizures *Have you ever received a pneumonia vaccine?: No *Have you received a flu vaccine this season?: No Other Medical History: Reports: Other. Denies: Blood Transfusion Reaction Anesthesia experience/problems:: nac Laterality Cases: Right: Arthroscopy Shoulder, Bilateral: Tonsillectomy, Other Other Surgeries: Yes: Colonoscopy, Tubal Ligation, Other (thymus gland removal). No: Pacemaker Amputation: No Fractures: No - *Social History Last grade of school completed: 11th or 12th Smoking Status: Current every day smoker Tobacco Type: cigarettes # Packs/Day (cigarettes): 1 Alcohol Intake: never Substance Use Type: denies use *Occupational Status:: unemployed Housing: house Household Members: spouse *Travel in the last 8 weeks: None - Psychiatric History Pschychiatric History:: Reports:: Anxiety, Depression Family Hx:: Unable to obtain
--- NOTE | 2020-08-24 10:48 | HMH.PROC ---
[facility] Procedure Note Procedure Note:: Upper Endoscopy Procedure Report: Esophagogastroduodenoscopy with cold biopsies and TTS balloon dilation Endoscopost: Jefferson Benavidez II, MD Referring Physician: LATESHA Georges Date of Procedure: August 24, 2020 Equipment: Olympus GIF 190 standard upper endoscope Sedation: MAC sedation Indications: Mrs. Carmona is a 54-year-old female with a prior history of dysphagia and globus sensation. She also has a history of dyspepsia. Recently, she has had recurrence of her choking, globus sensation and frequent clearance of the throat. She has had cricopharyngeal spasm with dilation and March 2016 and July 2018. The patient does report moderate belching and some early satiety. She reports no nausea, epigastric discomfort or bloating. She reports regular bowel function. Her heartburn is now controlled with Esoomeprazole. Procedure: Prior to the procedure, a history and physical exam was performed, and patient's medications and allergies were reviewed. The risks, benefits and alternatives of the sedation and procedure were discussed with the patient. All questions were answered and informed consent was obtained. The patient was brought to the procedure room. Patient identification and proposed procedure were verified by the physician and the nurse. The patient was placed in a left lateral decubitus position and the scope was passed under direct vision. Throughout the procedure, the patient's blood pressure, pulse, and oxygen saturations were monitored continuously. The upper GI endoscopy was accomplished without difficulty. The patient tolerated the procedure well. Findings: The scope was passed directly into the upper esophagus and advanced to the third portion of the duodenum. The post bulbar duodenum and duodenal bulb were normal with normal mucosa and conniventes. The scope was withdrawn through a normal duodenal bulb and pylorus into the stomach. There was mild linear reactive gastropathy of the antrum and body. The remainder of the antrum, body and fundus of the stomach were grossly normal. Upon retroflexion there was no hiatal hernia. 2 biopsies were taken in the antrum and along the lesser curvature for histology to rule out gastritis and/or H pylori. The scope was then withdrawn into the esophagus. There was a serrated Z-line but no evidence of reflux esophagitis or Fam's. There was no Schatzki's ring. There were tertiary contractions and evidence of moderate esophageal dysmotility. The entire esophagus was dilated to 60 Gib[place]/20 mm with a TTS hydrostatic balloon. There was resistance at the cricopharyngeus. The remainder of the esophageal mucosa was normal. Impression: 1. Cricopharyngeal spasm status post dilation to 20 mm 2. Nonerosive GERD with moderate esophageal dysmotility Plan: I will discussed the findings with the patient and family. I will follow-up the biopsies. I would resume promotility therapy and possibly Iberogast. The patient does have uncomplicated GERD but does have functional GERD with esophageal dysmotility/spasm.
--- NOTE | 2020-08-24 10:51 | HMH.ANESI ---
[facility] Anesthesia Record Part I Intake, IV Amount: 600 Estimated blood loss (mL): 0 Urine output (mL): 0 Blood Pressure: 100/62 SaO2: 98 Pulse Rate: 67 Respiratory Rate: 16 Temperature: 97.2 F Patient is:: Awake Stable to PACU at:: 10:50
--- NOTE | 2020-08-24 11:34 | HMH.ANESII ---
[facility] Anesthesia Record Part II Discharge Time: 11:20 Destination: Surgical Day Care (OP Surgery) PACU nurse assessment reviewed?: Yes Patient Condition:: Good Anesthesia Complications:: None Swallowing reflex intact?: Yes Cyanosis?: No Blood Pressure: 101/58 Pulse Rate: 56 Temperature: 99 F Mental Status: Alert & Oriented Pain level:: 0 Nausea and/or vomitting:: None Intake, IV Amount: 600
== END 2020-08-24 11:30 | disposition home or self-care (01) ==
LOC: OUTP 08:27
PROVIDERS: PCP Nurse Practitioner Family; Visit Provider Internal Medicine Gastroenterology
PROC: 0DJ08ZZ Inspection of Upper Intestinal Tract, Via Natural or Artificial Opening Endoscopic (ICD-10-PCS; CPT 43235; principal; 2020-08-24 09:30)
DX: J39.2 Other diseases of pharynx (principal); K21.9 Gastro-esophageal reflux disease without esophagitis; K22.4 Dyskinesia of esophagus; F41.9 Anxiety disorder, unspecified; J45.909 Unspecified asthma, uncomplicated; I11.0 Hypertensive heart disease with heart failure; I50.9 Heart failure, unspecified; F32.9 Major depressive disorder, single episode, unspecified; E78.5 Hyperlipidemia, unspecified; J98.4 Other disorders of lung; Z87.39 Personal history of other diseases of the musculoskeletal system and connective tissue; Z72.0 Tobacco use
CPT/HCPCS: 43239; 43249; 88305; C1726

== ENCOUNTER → 2020-09-10 11:12 | Outpatient (POV) | payer MEDICARE, SELFPAY ==
[2020-09-10 11:41] VITALS: BP 140/71; PULSE 69; RESP 18; O2SAT 98; BMI 42.3
--- NOTE | 2020-09-10 12:24 | HMH.PAINSOAP ---
[facility] Pain Management SOAP Note Subjective:: Patient is a pleasant 54-year-old white female who presents today for follow-up after her L4-L5 left transforaminal epidural steroid injection. She got over 80% relief of symptomology. Her pain is slowly returning however she is having bilateral leg pain at this time we discussed a traditional epidural steroid injection she would like to move forward with this. She is not on any anticoagulation therapy. If she does not get relief of at least 3 months from this injection we discussed a MRI. She rates her pain a 5 out of 10 today. ROS General: no recent weight change, no fever, no sleep disturbances Respiratory: no cough, no shortness of air, no recurring pulmonary infections Cardiovascular/Peripheral Vascular: No chest pain, No palpitations, no edema, no shortness of breath. Gastrointestinal: no new onset incontinence, normal bowel movements reported Genitourinary: no new onset incontinence Musculoskeletal: Back pain, leg pain Psychiatric: normal mood/ affect Neurological: [denies new onset weakness in extremities], [denies new onset balance issues] Objective:: Physical Exam General: Alert and oriented x3, no acute distress, pleasant and cooperative, [on room air] Lungs: Resps E/U, Symmetrical chest expansion, Eyes: PERRL Musculoskeletal: Flexion and extension of lumbar spine somewhat guarded secondary to pain, deep tendon reflexes normal, strength in upper and lower extremities [5/5], [abnormal gait noted] Neurological: speech clear, 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 She is been instructed to call the office if she has any issues prior to her next appointment. I will follow-up with her afterwards reassess her symptoms at that time. Dr. Savage has reviewed this note and agrees with this plan of care. This note was dictated using voice recognition software and may contain errors or omissions [facility] History I have reviewed the patient's past medical history: Yes Medical History: Reports:: Anxiety, Arrhythmia, Asthma, Congestive Heart Failure, Depression, Gastroesophageal Reflux Disease(GERD), Hyperlipidemia, Hypertension (for fluid more), Lung Disease Denies:: Cancer, Diabetes Mellitus Type 1, Diabetes Mellitus Type 2, Internal Pacemaker, MRSA, Seizures *Have you ever received a pneumonia vaccine?: Yes *Have you received a flu vaccine this season?: Yes Other Medical History: Reports: Other. Denies: Blood Transfusion Reaction Laterality Cases: Right: Arthroscopy Shoulder, Bilateral: Tonsillectomy, Other Other Surgeries: Yes: Colonoscopy, Tubal Ligation, Other (thymus gland removal). No: Pacemaker Amputation: No Fractures: No - *Social History Smoking Status: Current every day smoker Tobacco Type: cigarettes # Packs/Day (cigarettes): 1 Alcohol Intake: never Substance Use Type: denies use *Occupational Status:: other Housing: house Household Members: spouse *Travel in the last 8 weeks: None - Psychiatric History Pschychiatric History:: Reports:: Anxiety, Depression Family Hx:: Unable to obtain
== END ==
PROVIDERS: Visit Provider Clinical Nurse Specialist Family Health
DX: M51.16 Intervertebral disc disorders with radiculopathy, lumbar region (principal)
CPT/HCPCS: 99212; G0463

== ENCOUNTER 2020-09-25 13:02 | Day surgery (SDC) | payer MEDICARE, SELFPAY ==
[2020-09-25 13:22] VITALS: BP 115/62; PULSE 73; RESP 18; TEMP 36.6; O2SAT 97; BMI 42.3
[2020-09-25 14:04] VITALS: BP 158/89; PULSE 85; RESP 18; O2SAT 98
[2020-09-25 14:06] VITALS: BP 141/74; PULSE 85; RESP 18; O2SAT 98
--- NOTE | 2020-09-25 14:10 | P.PCN_ITS ---
- Procedure Date: 09/25/20 Time: 14:10 Anesthesiologist:: Nato Savage MD Complications:: None Pre-procedure Diagnosis:: Degenerative disc disease of lumbar spine with lumbar radiculopathy symptoms Post-procedure Diagnosis:: Same Indications for Procedure:: Patient is a pleasant 55-year-old white female who we are treating for low back pain with lumbar radiculopathy symptoms. She has increasing pain in her back down both legs. Will do lumbar epidural steroid injection today to help with pain symptoms. Procedure Details:: Informed consent was obtained and the risk and benefits of the procedure was explained to the patient. The patient was taken to the procedure room. The patient was placed prone on the procedure table. The patient was prepped and d raped in sterile fashion. C-arm fluoroscopy was used to view the lumbar spine. Skin and subcutaneous tissues were anesthetized using lidocaine. I placed an 18-gauge epidural needle and advanced into the L4-L5 interspace using fluoroscopic guidance and [id number] to air. After confirmation of needle placement in the epidural space with dye I injected 2 mL of lidocaine 1.5% with Depo-Medrol 80 mg. Patient tolerated the procedure well with no complications. Plan and Disposition:: We will follow-up with her in 2 weeks. Will reevaluate her symptoms at that t ted.
[2020-09-25 14:28] VITALS: BP 117/63; PULSE 67; RESP 18; O2SAT 97
== END 2020-09-25 14:29 | disposition home or self-care (01) ==
LOC: SC.PAINP 13:03
PROVIDERS: PCP Nurse Practitioner Family; Visit Provider Anesthesiology
DX: M51.16 Intervertebral disc disorders with radiculopathy, lumbar region (principal); J45.909 Unspecified asthma, uncomplicated; I11.0 Hypertensive heart disease with heart failure; E78.5 Hyperlipidemia, unspecified; I50.9 Heart failure, unspecified; K21.9 Gastro-esophageal reflux disease without esophagitis; Z72.0 Tobacco use; M19.90 Unspecified osteoarthritis, unspecified site; Z90.49 Acquired absence of other specified parts of digestive tract; E32.1 Abscess of thymus; Z88.8 Allergy status to other drugs, medicaments and biological substances; Z79.899 Other long term (current) drug therapy
CPT/HCPCS: 62323; J1040; Q9966

== ENCOUNTER → 2020-10-08 08:50 | Outpatient (CLI) | payer MEDICARE, SELFPAY ==
--- NOTE | 2020-10-08 08:54 | XR_ITS ---
PROCEDURE: XR HIP RT 2-3V W/PELVIS CLINICAL INDICATION: RT HIP PAIN COMPARISON: CR XR HIP LT 2-3V W/PELVIS from 06/04/2020 FINDINGS: There are mild osteoarthritic changes the right hip. No acute fracture or dislocation. No lytic or blastic change. Mild osteosclerosis with minimal osteophyte formation also noted at the SI joints. AP view of the pelvis shows mild degenerative changes of the left hip is well. IMPRESSION: Mild osteoarthritic changes of the hips and SI joints right slightly greater than left. Dictated by: Desean Andrade MD 10/08/2020 09:45 Desean Andrade MD in [place] 10/08/2020 09:45
--- NOTE | 2020-10-08 08:54 | XR_ITS ---
PROCEDURE: XR LUMBAR SPINE MIN 4V CLINICAL INDICATION: LBP RADIATING TO RT LOWER EXTREMITY COMPARISON: CR XR LUMBAR SPINE 2-3V from 08/19/2019 FINDINGS: There is minimal anterolisthesis of L4 of 2 mm. The disc spaces are well preserved. Facet hypertrophic/sclerotic changes are present at L3-L4 L5 and S1. Mild generalized vascular calcification. Normal alignment. No acute fracture or dislocation. No lytic or blastic change Other findings:None. IMPRESSION: Facet arthritic changes of the lower lumbar spine Dictated by: Desean Andrade MD 10/08/2020 09:47 Desean Andrade MD in [place] 10/08/2020 09:47
== END ==
LOC: RAD 08:52
PROVIDERS: PCP Nurse Practitioner Family; Visit Provider Nurse Practitioner Family
DX: M54.5 Low back pain (principal); M25.551 Pain in right hip
CPT/HCPCS: 72110; 73502

== ENCOUNTER → 2020-10-23 13:08 | Outpatient (POV) | payer MEDICARE, SELFPAY ==
[2020-10-23 14:22] VITALS: BP 137/61; PULSE 68; RESP 18; TEMP 36.6; O2SAT 98; BMI 42.3
--- NOTE | 2020-10-23 15:56 | HMH.PAINSOAP ---
[facility] Pain Management SOAP Note Subjective:: Patient is a very pleasant 55-year-old white female with degenerative disc disease of lumbar spine with lumbar radiculopathy symptoms who are treating for low back pain dating into bilateral legs. Is undergone lumbar epidural steroid injection in the past with very minimal relief. She states that her pain got worse after the injection. Today she reports her pain is in her low back and is especially worse with bending and twisting. She needs to be interested in injection therapy will help relieve her pain. She underwent x-ray of her left hip which showed mild osteoarthritic changes of the hips and SI joints with the right slightly worse than the left. She also underwent an x-ray of the lumbar spine which showed facet arthritic changes of the lower lumbar spine. Of note, she states that she was seen by an orthopedist today and underwent left-sided trochanteric bursa injections. Objective:: General: Alert and oriented x3, no acute distress, pleasant and cooperative Lungs: Resps E/U, symmetric chest expansion Eyes: PERRL Musculoskeletal: limited flexion and extension of the lumbar spine secondary to pain. Deep tendon reflexes were normal in bilateral lower extremities. Motor exam was grossly intact in the bilateral lower extremities, antalgic gait noted, there are to palpation over the bilateral lower facet joints, positive facet loading bilaterally. Neurological: Speech is clear, state assessed properties director equal, no gross sensory deficits Assessment:: This patient is a very pleasant 55-year-old white female we are treating for the above symptoms. It appears that she is got multiple pain generators causing her chronic pain; however, believe her primary pain generator at this time appears to be related to her lower lumbar facet joints. She unfortunately did not get much relief from the lumbar epidural steroid injection but after talking to her and examining her believe she will benefit from bilateral lumbar facet joint/medial branch block injections to L4-L5 and L5-S1. [facility] History Medical History: Reports:: Anxiety, Arrhythmia, Asthma, Congestive Heart Failure, Depression, Gastroesophageal Reflux Disease(GERD), Hyperlipidemia, Hypertension (for fluid more), Lung Disease Denies:: Cancer, Diabetes Mellitus Type 1, Diabetes Mellitus Type 2, Internal Pacemaker, MRSA, Seizures *Have you ever received a pneumonia vaccine?: No *Have you received a flu vaccine this season?: No Other Medical History: Reports: Arthritis, Other. Denies: Blood Transfusion Reaction Laterality Cases: Left: Arthroscopy Knee, Right: Arthroscopy Shoulder, Bilateral: Tonsillectomy, Other Other Surgeries: Yes: Cholecystectomy, Colonoscopy, Tubal Ligation, Other (thymus gland removal). No: Pacemaker Amputation: No Fractures: No - *Social History Smoking Status: Current every day smoker Tobacco Type: cigarettes # Packs/Day (cigarettes): 1 Alcohol Intake: never Substance Use Type: denies use *Occupational Status:: unemployed Housing: house Household Members: spouse *Travel in the last 8 weeks: None - Psychiatric History Pschychiatric History:: Reports:: Anxiety, Depression Family Hx:: Unable to obtain
== END ==
PROVIDERS: PCP Nurse Practitioner Family; Visit Provider Anesthesiology Pain Medicine
DX: M51.16 Intervertebral disc disorders with radiculopathy, lumbar region (principal)
CPT/HCPCS: 99212; G0463

== ENCOUNTER 2020-10-30 10:27 | Day surgery (SDC) | payer MEDICARE, SELFPAY ==
[2020-10-30] VITALS: BP 105/75; PULSE 54; RESP 20; O2SAT 96
[2020-10-30 10:47] VITALS: BP 120/44; PULSE 60; RESP 18; TEMP 36.7; O2SAT 96; BMI 42.3
[2020-10-30 12:44] VITALS: BP 127/60; PULSE 54; RESP 18; O2SAT 98
[2020-10-30 12:45] VITALS: BP 128/76; PULSE 56; RESP 18; O2SAT 98
--- NOTE | 2020-10-30 12:58 | P.PCN_ITS ---
- Procedure Date: 10/30/20 Time: 12:58 Anesthesiologist:: Shaina Proctor MD Complications:: None Pre-procedure Diagnosis:: Disc disease of the lumbar spine, lumbar facet arthropathy, lumbar spondylosis, chronic low back pain Post-procedure Diagnosis:: Same Indications for Procedure:: This is a very pleasant 55-year-old white female who presents today with chronic low back pain related to the above diagnosis. She has undergone lumbar epidural steroid injection in the past with very little pain relief. She reports that chronic pain is in her low back, denies any radiation of pain into her legs and notes that is the pain is worse with bending and twisting. She has tried and failed conservative treatment including oral pain medication and home stretching program. Today the plan is for her to undergo diagnostic lumbar facet joint/medial branch blocks at L4-L5 and L5-S1 #1. Procedure Details:: Lumbar medial branch block Informed consent was obtained and the risks and benefits of the procedure was explained to the patient. The back was prepped using ChloraPrep. The skin and subcutaneous tissues were anesthetized using lidocaine. I placed 22-gauge spinal needles into the facet joint/medial branches of L4-L5 and L5-S1 bilaterally. Needle placement was confirmed with dye. After this we injected 3 mL solution of 5mL bupivacaine 0.25% and Depo-Medrol 40mg into each facet joint/medial branch of L5 and L5-S1 bilaterally. We used a total of 80 mg Depo- Medrol for all 2 levels bilaterally. The patient tolerated the procedure well with no complications. Plan and Disposition:: We will follow-up with this patient in 2 weeks. Will reevaluate pain symptoms at that time.
== END 2020-10-30 13:10 | disposition home or self-care (01) ==
LOC: SC.PAINP 10:28
PROVIDERS: PCP Nurse Practitioner Family; Visit Provider Anesthesiology Pain Medicine
DX: M51.36 Other intervertebral disc degeneration, lumbar region (principal); M54.06 Panniculitis affecting regions of neck and back, lumbar region; M47.816 Spondylosis without myelopathy or radiculopathy, lumbar region; I11.0 Hypertensive heart disease with heart failure; I50.9 Heart failure, unspecified; E78.5 Hyperlipidemia, unspecified; J45.909 Unspecified asthma, uncomplicated; K21.9 Gastro-esophageal reflux disease without esophagitis; M19.90 Unspecified osteoarthritis, unspecified site; F41.9 Anxiety disorder, unspecified; F32.9 Major depressive disorder, single episode, unspecified; Z72.0 Tobacco use
CPT/HCPCS: 64493; 64494; J1030; Q9966

== ENCOUNTER → 2020-11-19 13:50 | Outpatient (POV) | payer MEDICARE, SELFPAY ==
[2020-11-19 13:59] VITALS: BP 125/78; PULSE 70; RESP 18; O2SAT 96; BMI 42.3
--- NOTE | 2020-11-19 17:02 | HMH.PAINSOAP ---
[facility] Pain Management SOAP Note Subjective:: Patient is a pleasant 55-year-old female who presents today for follow-up after lumbar medial branch block at L4-L5 L5-S1 bilaterally. She has been treated for degenerative disc disease lumbar spine with lumbar facet arthropathy, lumbar spondylosis and chronic low back pain. Patient says that she has gotten excellent relief with the medial branch blocks. She is continuing to get significant relief and does not want to undergo her second round of diagnostic medial branch blocks at this time. She is complaining, however, of severe left hip pain. She has had bursitis in the past to the left hip and says that she did not get much relief with a trochanteric bursa injection. This injection was provided to her by her orthopedic provider. She says that she is having difficulty standing and walking due to the left hip pain. She says that the pain radiates into her left hip, left lateral thigh burning and tightness. The pain does stop at the left knee. She also has left buttock pain. Upon palpation of her left SI joint, she is not tender. She says she has tried left SI joint injections with no significant relief. She is interested in a left intra-articular hip injection. Patient and I did discuss the injection. If she does not get relief, she may benefit from a MRI of her left hip to determine pathology of her pain. Patient discussed that her symptoms do sound much like SI, however, she is negative for a Jesus Alberto's, compression, and distraction test. She rates her pain a 2 out of 10 with sitting and a 6 out of 10 with standing walking. She does take gabapentin and tramadol prescribed by her primary care provider. Review of Systems General: No recent weight changes, no fever, no sleep disturbances Respiratory: No cough, no shortness of air, no recurring pulmonary infections Cardiovascular/peripheral vascular: No chest pain, no palpitations, no edema, no shortness of breath Gastrointestinal: No new onset incontinence, normal bowel movements reported Genitourinary: No new onset incontinence Musculoskeletal: Left hip pain, left lateral thigh pain, left buttock pain Psychiatric: Normal mood/affect Neurological: [Denies weakness in extremities], [denies balance issues] Objective:: Physical exam General: Alert and oriented x3, no acute distress, pleasant and cooperative, [on room air] Lungs: Respirations even and unlabored, symmetrical chest expansion Eyes: PERRL Musculoskeletal: Flexion and extension of left lower extremity somewhat guarded secondary to pain, deep tendon reflexes normal, strength in upper and lower extremities [5/5], [abnormal gait noted] Neurological: Speech clear, corsetier equal, no gross sensory deficit Assessment:: Left hip pain Plan:: We will schedule patient for left intra-articular hip injection. If the patient does not get relief with the injection, she may need to undergo imaging to determine pathology of her pain. The patien says she has tried a left SI injection in the past along with a trochanteric bursa injection with no relief. She does take Gay, gabapentin, and tramadol by her primary care provider. We will see her back after her injection for reevaluation of symptoms. Risks and benefits of the procedure have been explained to the patient. Patient would like to proceed with the procedure. Possible side effects of corticosteroids have been discussed with the patient. Patient has been instructed to contact the clinic with any concerns before the next appointment. Dr. Savage has reviewed this note and agrees with this plan of care. This note was dictated using voice recognition software and make contain errors or omissions. [facility] History I have reviewed the patient's past medical history: Yes Medical History: Reports:: Anxiety, Arrhythmia, Asthma, Congestive Heart Failure, Depression, Gastroesophageal Reflux Disease(GERD), Hyperlipidemia, Hypertension (for fluid m
== END ==
PROVIDERS: PCP Nurse Practitioner Family; Visit Provider Clinical Nurse Specialist Family Health
DX: M25.552 Pain in left hip (principal)
CPT/HCPCS: 99212; G0463

== ENCOUNTER 2020-11-27 09:07 | Day surgery (SDC) | payer MEDICARE, SELFPAY ==
[2020-11-27 09:45] VITALS: BP 113/62; PULSE 57; RESP 18; TEMP 36.4; O2SAT 97; BMI 42.3
[2020-11-27 11:04] VITALS: BP 117/68; PULSE 63; RESP 18; O2SAT 100
[2020-11-27 11:07] VITALS: BP 124/64; PULSE 64; RESP 18; O2SAT 100
[2020-11-27 11:20] VITALS: BP 129/65; PULSE 58; RESP 20; O2SAT 97
--- NOTE | 2020-11-27 11:32 | P.PCN_ITS ---
- Procedure Date: 11/27/20 Time: 11:32 Anesthesiologist:: Shaina Proctor MD Complications:: None Pre-procedure Diagnosis:: Left hip osteoarthritis, left hip pain Post-procedure Diagnosis:: Same Indications for Procedure:: Patient is a very pleasant 55-year-old white female who presents today with left-sided hip pain related to the above diagnosis. She has trialed and failed conservative treatment including oral pain medication and home stretching program for greater than 6 weeks. She has recently underwent lumbar medial branch blocks in our clinic and notes almost 100% pain relief that is ongoing. However, she states that currently her primary pain generator is her left hip. She states that the pain radiates from her left hip into her left lateral thigh and describes as a burning and tightness. She denies any pain past the level of her knee. Of note, she is also previously undergone a trochanteric bursa injection with her orthopedic surgeon but unfortunately did not get much relief from this injection. The plan for today is for the patient to undergo a left- sided intra-articular hip injection under fluoroscopy #1. Procedure Details:: Informed consent was obtained and the risks and benefits of the procedure was explained to the patient. Patient was taken to the procedure room. Patient was placed right lateral decubitus on the procedure table. The left hip was prepped using ChloraPrep. The skin and subcutaneous tissues were anesthetized using 3 mL of 1% lidocaine. I placed a 22-gauge 3-1/2 inch spinal needle into the junction of the femoral head and femoral neck under AP and lateral fluoroscopic views. Needle placement was confirmed with 1 mL of contrast dye. After this we injected 5 mL bupivacaine 0.25%, 5 mL of lidocaine 1%, and Depo-Medrol 40 mg into the left intra-articular hip joint capsule. The patient tolerated the procedure well with no complications. Plan and Disposition:: We will follow-up with this patient in 2 weeks. Will reevaluate pain symptoms at that time.
== END 2020-11-27 11:20 | disposition home or self-care (01) ==
LOC: SC.PAINP 09:09
PROVIDERS: PCP Nurse Practitioner Family; Visit Provider Anesthesiology Pain Medicine
DX: M16.12 Unilateral primary osteoarthritis, left hip (principal)
CPT/HCPCS: 20610; 76000; 77002; J1040; Q9966

== ENCOUNTER → 2020-12-17 10:48 | Outpatient (POV) | payer MEDICARE, SELFPAY ==
[2020-12-17 10:54] VITALS: BP 108/69; PULSE 69; RESP 18; O2SAT 98; BMI 33.4
--- NOTE | 2020-12-17 11:30 | HMH.PAINSOAP ---
[facility] Pain Management SOAP Note Subjective:: Patient is a 55-year-old white female who presents today for follow-up. The patient recently underwent a left intra-articular hip injection. Patient got excellent relief of her hip pain, however, she continues to have left lateral thigh pain. The pain starts just below her left hip and radiates to her left knee. She had left knee surgery approximately 2 to 3 years ago at [facility]. She has had significant pain since having the left knee surgery. She says that the surgery did not relieve her pain. She is following up with [facility] for CT scan to assess hardware and rule out infection to the knee. She says that she has been trying to do more home stretching along with riding a bike to try to get relief of her left lateral thigh pain with no success. She is unable to sleep on her left side, unable to stand or walk due to the pain in this area. She has had a transforaminal epidural steroid injection, lumbar epidural steroid injection, and a left SI injection in the past this year. Her SI injection was done in July 2020, lumbar epidural steroid injection in August 2020, and transforaminal injection in 2020. These injections did not give the patient any relief. She is not tender to her left SI joint at this time. She is tender to palpation to her left lateral thigh area. She does rate her pain a 7 out of 10. She is managed with tramadol and gabapentin by her primary care provider Susanna Hartman. She has had physical therapy in the past for her knee but no recent therapy for her left lateral thigh pain. She does take diclofenac by mouth with no significant relief. Review of Systems General: No recent weight changes, no fever, no sleep disturbances Respiratory: No cough, no shortness of air, no recurring pulmonary infections Cardiovascular/peripheral vascular: No chest pain, no palpitations, no edema, no shortness of breath Gastrointestinal: No new onset incontinence, normal bowel movements reported Genitourinary: No new onset incontinence Musculoskeletal: Left lateral thigh pain Psychiatric: [Normal mood/affect] Neurological: [Denies weakness in extremities], [denies balance issues] Assessment:: Physical exam General: Alert and oriented x3, no acute distress, pleasant and cooperative, [on room air] Lungs: Respirations even and unlabored, symmetrical chest expansion Eyes: PERRL Musculoskeletal: Flexion and extension of left leg strength in upper and lower extremities [5/5], [antalgic gait noted] Neurological: Speech clear, [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 We discussed the side effects devised to see if this relieves some of the pain. She does have a TENS unit [id number] that has given her some relief. She does have tenderness to palpation to her left lateral thigh, myofascial in nature. We will schedule her for trigger point injections to her left lateral thigh. Physical therapy is also been contacted for kinesiology therapy to her left lateral thigh and knee. She continues to have pain to both areas since having her left knee surgery 2 years ago. She was also given Duexis samples today. Have advised the patient to stop taking diclofenac to see if the medication gives her relief. If it does we will change her to Duexis. We will follow up with her after her compounding cream, physical therapy?kinesiology taping, and trigger point injections for reevaluation of symptoms. Risks and benefits of the procedure have been explained to the patient. Patient would like to proceed with the procedure. Possible side effects of corticosteroids have been discussed with the patient. Patient has been instructed to contact the clinic with any concerns before the next appointment. Dr. Savage has reviewed this note and agrees with this plan of care. T
== END ==
PROVIDERS: PCP Nurse Practitioner Family; Visit Provider Clinical Nurse Specialist Family Health
DX: M17.12 Unilateral primary osteoarthritis, left knee (principal); M25.559 Pain in unspecified hip
CPT/HCPCS: 99212; G0463

== ENCOUNTER 2020-12-21 14:52 | Day surgery (SDC) | payer MEDICARE, SELFPAY ==
[2020-12-21 14:54] VITALS: BP 115/58; PULSE 69; RESP 19; TEMP 36.7; O2SAT 97; BMI 42.3
[2020-12-21 15:06] VITALS: BP 114/63; PULSE 67; RESP 18; O2SAT 96
[2020-12-21 15:08] VITALS: BP 114/63; PULSE 68; RESP 18; O2SAT 97
--- NOTE | 2020-12-21 15:13 | P.PCN_ITS ---
- Procedure Date: 12/21/20 Time: 15:13 Anesthesiologist:: Frida Goyal APRN Complications:: None Pre-procedure Diagnosis:: Myofascial pain left lateral thigh Post-procedure Diagnosis:: Same Indications for Procedure:: Patient is a pleasant 55-year-old white female who presents today for myofascial pain left lateral thigh area. Patient says she has had this pain since having her left knee repaired. She rates her pain a 6 out of 10. The pain is worse with sitting, standing, and walking. We will perform trigger point injections to the area today to see if she gets relief. At last visit, she was given Duexis and has tolerated the medication well. Her insurance will not likely cover Duexis, so we will order the patient ibuprofen 800 mg and Pepcid 26.6 mg to take up to 3 times daily as needed for pain. 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 Patient was taken to the procedure room. Left lateral thigh area was prepped using ChloraPrep. Trigger points were palpated and marked. Each of these trigger points were injected with bupivacaine 0.25% 3 mL and Depo-Medrol 10 mg. A total of[80] milligrams Depo-Medrol was used for left lateral thigh muscle bandages were placed over the injection sites. Patient tolerated procedure well with no complications. Plan and Disposition:: Patient will need her compounding cream ordered as well as her TENS unit. We will order her ibuprofen 800 mg 1 tablet p.o. 3 times daily as needed along with Pepcid 26.6 mg 1 tablet p.o. 3 times daily as needed. She was given Duexis samples and did well with medication. Unfortunately, her insurance will not cover Duexis. We will see her back in the clinic in 2 weeks for reevaluation of symptoms. Patient has been instructed to contact the clinic with any concerns before the next appointment. Dr. Savage has reviewed this note and agrees with this plan of care. This note was dictated using voice recognition software and make contain errors or omissions.
[2020-12-21 15:19] VITALS: BP 113/68; PULSE 64; RESP 18; O2SAT 97
== END 2020-12-21 15:20 | disposition home or self-care (01) ==
LOC: SC.PAINP 14:53
PROVIDERS: PCP Nurse Practitioner Family; Visit Provider Clinical Nurse Specialist Family Health
DX: M79.18 Myalgia, other site (principal); Z72.0 Tobacco use; E78.5 Hyperlipidemia, unspecified; J45.909 Unspecified asthma, uncomplicated; K21.9 Gastro-esophageal reflux disease without esophagitis; N28.9 Disorder of kidney and ureter, unspecified; F41.9 Anxiety disorder, unspecified; Z88.8 Allergy status to other drugs, medicaments and biological substances
CPT/HCPCS: 20552; J1040

== ENCOUNTER → 2021-05-03 15:48 | Outpatient (CLI) | payer MEDICARE, SELFPAY ==
--- NOTE | 2021-05-03 15:49 | MM_ITS ---
PROCEDURE INFORMATION: Exam: MG Bilateral Screening 3D Mammography Exam date and time: 05/03/2021 3:49 PM Age: 55 years old Clinical indication: Screening mammogram TECHNIQUE: Imaging protocol: Bilateral screening tomosynthesis and 2D mammography including computer-aided detection (CAD) when performed. COMPARISON: 1. MG MM DIG SCREENING MAMM BI W/CAD 02/26/2020 10:48 AM 2. MG MM DIG SCREENING MAMM BI W/CAD 12/12/2018 3:43 PM 3. MG DMSB DIG MAMM-SCREEN LOKESH W/CAD 09/29/2016 3:41 PM 4. MG DMSB DIG MAMM-SCREEN LOKESH 08/13/2015 4:03 PM FINDINGS: MAMMOGRAPHY: Breast composition: There are scattered areas of fibroglandular density. Mass: None. Architectural distortion: No new or suspicious architectural distortion. Calcifications: No new or suspicious calcifications are present Asymmetric density: No new or suspicious asymmetric density is present Skin thickening: None. Axillary adenopathy: None. IMPRESSION: No mammographic evidence of malignancy. Recommend annual screening mammography unless otherwise clinically indicated. ASSESSMENT: BI-RADS category 1: Negative
== END ==
PROVIDERS: PCP Nurse Practitioner Family; Visit Provider Nurse Practitioner Family
DX: Z12.31 Encounter for screening mammogram for malignant neoplasm of breast (principal)
CPT/HCPCS: 77063; 77067

== ENCOUNTER → 2021-07-20 14:18 | Outpatient (CLI) | payer MEDICARE, SELFPAY ==
--- NOTE | 2021-07-20 14:23 | XR_ITS ---
FINAL REPORT CLINICAL HISTORY: . no trauma...rt knee pain FINDINGS: 4 weight-bearing views of the right knee were obtained. There is no acute fracture or dislocation. There is [id number] degenerative change. The soft tissues are unremarkable. IMPRESSION: [id number] degenerative change. Reviewed, Interpreted and Dictated by Chapo Obrien III, MD Transcribed by Ced Carlisle Authenticated by Chapo Obrien III, MD on 07/20/2021 04:41:36 PM [facility]
== END ==
LOC: RAD 14:19
PROVIDERS: PCP Family Medicine; Visit Provider Family Medicine
DX: M25.561 Pain in right knee
CPT/HCPCS: 73564

== ENCOUNTER 2021-07-30 13:18 | Emergency (ER) | payer MEDICARE, SELFPAY ==
[2021-07-30 13:19] VITALS: BP 132/71; PULSE 68; RESP 16; TEMP 36.8; O2SAT 97; BMI 43.0
--- NOTE | 2021-07-30 13:57 | PC.NURSE ---
Pt refused xray
[2021-07-30 14:00] VITALS: BP 111/60; PULSE 63; RESP 15; O2SAT 99
[2021-07-30 14:30] VITALS: BP 129/80; PULSE 61; RESP 16; O2SAT 98
--- NOTE | 2021-07-30 14:47 | HMH.EDGENADL ---
ED Disposition Clinical Impression: Right knee pain Qualifiers: Chronicity: acute Qualified Code(s): M25.561 - Pain in right knee Disposition: Home, Self-Care Condition on Discharge: Good Instructions: DI for Knee Pain Additional Instructions: Follow-up with [facility], call Monday to make follow-up appointment if you do not already have a follow-up scheduled. Continue ibuprofen 800 mg. Ice as needed for pain and swelling. [place] as needed for pain. Additional instructions for CONTROLLED SUBSTANCES: You have been prescribed a medication that is a controlled substance. Controlled substances include pain medications known as opiates and sedative nerve medications known as benzodiazepines. Tramadol, fioricet, and gabapentin are also controlled substances. Some common opiates include: Codeine (such as Tylenol #3) Hydrocodone (Vicodin, Lortab, Lorcet, Titonka) Oxycodone (Percocet, Percodan, Oxycodone, Oxy IR) Some common benzodiazepines include: Diazepam (Valium) Lorazepam (Ativan) Alprazolam (Xanax) Clonazepam (Klonopin) Oxazepam (Serax) All of these controlled substances are highly addictive and frequently abused. Misuse can and frequently does lead to addiction as well as overdose and . Medication should be stored in a locked cabinet or other secure storage unit. Do not store the medication in a motor vehicle. Short term supplies, 3 days or less, are prescribed because of the highly addictive nature of the medication. Any of the controlled substance medication NOT taken should be disposed of properly and NOT SAVED. The recommended method of disposing of unused medications is: Place the medicines in a sealable plastic bag. If the medicine is a solid, crush it or add water to dissolve it. Add something undesirable (cat litter, coffee grounds, etc.) Dispose of sealed bag in household trash Do not flush or pour unused medicines down a sink or drain. Controlled substances should not be shared, given away or sold. Because of the addictive nature and frequent abuse, these medications are sometimes stolen. These medications should be kept in a safe place where they cannot be stolen. Do not keep them in your car or purse. Lost or stolen prescriptions for controlled substances WILL NOT BE REFILLED in this emergency department, regardless of whether a police report was filed. Prescriptions: Hydrocod/Acet 5/325 mg [[place] 5/325mg tablet] 1 tab PO Q6HP PRN #10 tab PRN Reason: Pain Transmission Status: Sent to [facility] Referrals: Angeles Hartman APRN [Primary Care Provider] - - Critical Care Critical Care Time: No Attestation: On 07/30/21, the high probability of a clinically significant, sudden or life threatening deterioration of the following system(s) required my full and direct attention, intervention and personal management. The time I documented below is in addition to time spent performing reported procedures but includes the following listed in this critical care notation. Medical Decision Making - Medical Records Medical records reviewed: Yes: I reviewed the patient's medical records. MR Comment: Reviewed right knee x-ray result from 07/20/2021. Confirms mild osteoarthritis. - Anatoly Inquiry Pt receiving controlled substance: Yes Anatoly was queried for this patient: Yes Risks and benefits of using a controlled substance: were discussed with pt by me Vital Signs: 07/30/21 13:19 07/30/21 14:00 07/30/21 14:30 Temperature 98.2 F Temperature Source Oral Pulse Rate 63 61 Pulse Rate [Right Radial] 68 Respiratory Rate 16 15 16 Blood Pressure 111/60 129/80 Blood Pressure [Right Arm] 132/71 Blood Pressure Mean 79 96 Blood Pressure Mean [Right Arm] 91 Blood Pressure Source [Right Arm] Automatic Cuff Blood Pressure Position [Right Arm] Sitting 02 Sat by Pulse Oximetry 97 99 98 Oxygen Delivery Method Room Air 07/30/21 15:01 Temperatur
--- NOTE | 2021-07-30 14:54 | CA_ITS ---
FINAL REPORT TECHNIQUE: Right lower extremity venous duplex was performed with augmentation and compression. CLINICAL HISTORY: right leg pain and swelling,NKI,OBESITY FINDINGS: Proper flow is seen throughout the deep venous system. There is no evidence of deep venous thrombosis. IMPRESSION: No deep venous thrombosis. Reviewed, Interpreted and Dictated by Jason Khalil MD Transcribed by Francine Palomo Authenticated by Jason Khalil MD on 07/30/2021 03:45:06 PM [facility]
[2021-07-30 15:01] VITALS: BP 105/54; PULSE 62; RESP 15; O2SAT 98
--- NOTE | 2021-07-30 15:17 | PC.NURSE ---
cv lab staff at for doppler
[2021-07-30 16:19] VITALS: BP 137/76; PULSE 65; RESP 16; TEMP 36.8; O2SAT 99
== END 2021-07-30 16:20 | disposition home or self-care (01) ==
PROVIDERS: Emergency Provider Emergency Medicine; PCP Nurse Practitioner Family
DX: M79.661 Pain in right lower leg (principal); F41.8 Other specified anxiety disorders; K21.9 Gastro-esophageal reflux disease without esophagitis; E78.5 Hyperlipidemia, unspecified; I10 Essential (primary) hypertension; F17.210 Nicotine dependence, cigarettes, uncomplicated; Z79.899 Other long term (current) drug therapy
CPT/HCPCS: 93971; 99284

== ENCOUNTER → 2021-08-19 10:40 | Outpatient (POV) | payer MEDICARE, SELFPAY ==
[2021-08-19 11:12] VITALS: BP 115/58; PULSE 65; RESP 18; TEMP 36.8; O2SAT 96; BMI 44.9
--- NOTE | 2021-08-19 12:35 | HMH.PAINSOAP ---
[facility] Pain Management SOAP Note Subjective:: Patient is a pleasant 55-year-old female with a surgical history of right knee replacement who presents today for follow-up. We have not seen this patient since December of last year. We were treating this patient for a right knee pain. We have tried trigger point injections and ibuprofen with minimal relief. She states that she has been seeing [facility] for the right knee pain. They have done steroid and gel injections with minimal relief. Today, she is complaining of pain around the inferior and medial aspect of her right knee. She says that this is worse with flexion and extension. She gets some swelling in it from time to time. She uses ice to help decrease some of the swelling. She has tried several topical creams with no relief of symptoms. Recently, she had a bursa injection with minimal relief. She rates her pain today as 8 out of 10. [facility] #[id number] with an active morphine equivalent of 5. She takes [place] 5 mg daily and gabapentin 600 mg 3 times a day that are prescribed by an outside clinic. Review of Systems: General: No recent weight changes, no fever, no sleep disturbances Respiratory: No cough, no shortness of air, no recurring pulmonary infections Cardiovascular/peripheral vascular: No chest pain, no palpitations, no edema, no shortness of breath Gastrointestinal: No new onset incontinence, normal bowel movements reported Genitourinary: No new onset incontinence Musculoskeletal: Right knee pain Psychiatric: [Normal mood/affect] Neurological: [Denies weakness in extremities], [denies balance issues] Objective:: Physical Exam: General: Alert and oriented x3, no acute distress, pleasant and cooperative, [on room air] Lungs: Respirations even and unlabored, symmetrical chest expansion Eyes: PERRL Musculoskeletal: Limited range of motion of the right knee secondary to pain. Tender to palpation around the pes anserine bursa and in the medial aspect of her knee. Neurological: Speech clear, no gross sensory deficit Assessment:: Pes anserine bursitis Right knee pain Plan:: Patient continues to have pain on her right knee. She has had right knee replacement previously. She has been seeing [facility] and they have tried knee injections and bursa injections with minimal relief. When we saw this patient previously, we tried trigger point injections that did not help. We will try to schedule the patient for a right genicular nerve block to see if this would help with some of the knee pain. Risks and benefits of the procedure have been explained to the patient. Patient would like to proceed with the procedure. I will also order the patient a compounding cream. If the patient gets minimal relief from the right genicular nerve block, we will order a right knee MRI. Patient has been instructed to contact the clinic with any concerns before the next appointment. Dr. Savage has reviewed this note and agrees with this plan of care. This note was dictated using voice recognition software and make contain errors or omissions. [facility] History Medical History: Reports:: Anxiety, Arrhythmia, Asthma, Congestive Heart Failure, Depression, Gastroesophageal Reflux Disease(GERD), Hyperlipidemia, Hypertension (for fluid more), Lung Disease, Palpitations Denies:: Cancer, Diabetes Mellitus Type 1, Diabetes Mellitus Type 2, Internal Pacemaker, MRSA, Seizures *Have you ever received a pneumonia vaccine?: No *Have you received a flu vaccine this season?: No Other Medical History: Reports: Arthritis, Other. Denies: Blood Transfusion Reaction Laterality Cases: Left: Arthroscopy Knee, Right: Arthroscopy Shoulder, Bilateral: Tonsillectomy, Other Other Surgeries: Yes: Cholecystectomy, Colonoscopy, Tubal Ligation, Other (thymus gland removal). No: Pacemaker Amputation: No Fractures: No - *Social History Smoking Status: Current some day smoker Tobacco Type: cigarettes # Packs
== END ==
PROVIDERS: Visit Provider Student in an Organized Health Care Education/Training Program
DX: M71.561 Other bursitis, not elsewhere classified, right knee
CPT/HCPCS: 99212; G0463

== ENCOUNTER 2021-08-26 14:00 | Outpatient (RCR) | payer MEDICARE, SELFPAY | END 2021-08-26 14:05 | disposition home or self-care (01) | LOC: PT 14:00 | PROVIDERS: Visit Provider Specialist/Technologist Athletic Trainer | DX: M17.11 Unilateral primary osteoarthritis, right knee; M70.52 Other bursitis of knee, left knee | CPT/HCPCS: 97010; 97014; 97033; 97035; 97110; 97140; 97163; G0283 ==

== ENCOUNTER 2021-08-27 09:26 | Day surgery (SDC) | payer MEDICARE, SELFPAY ==
[2021-08-27 09:38] VITALS: BP 112/45; PULSE 73; RESP 20; TEMP 36.6; O2SAT 99; BMI 40.7
[2021-08-27 09:50] VITALS: BP 121/63; PULSE 63; RESP 18; O2SAT 100
[2021-08-27 09:55] VITALS: BP 122/65; PULSE 64; RESP 18; O2SAT 100
--- NOTE | 2021-08-27 10:04 | HMH.PMPROC ---
- Procedure Date: 08/27/21 Time: 10:04 Anesthesiologist:: Live Romero CRNA Complications:: None Pre-procedure Diagnosis:: Osteoarthritis right knee Post-procedure Diagnosis:: Same Indications for Procedure:: This patient is a very pleasant 55-year-old female whose been seeing us for quite some time regarding bilateral knee pain. Her right knee is greater than the left. Today she presents for right genicular nerve block. She has had intra-articular blocks in the knee as well. However, they do not seem to be lasting like they used to. She does take Richardson 5 mg daily and gabapentin 600 mg 3 times daily. This is prescribed from an outside physician. We will proceed with right genicular nerve block today. Procedure Details:: Right knee genicular nerve block. Informed consent was obtained and the risk and benefits of the procedure was explained to the patient. The patient was taken to the procedure room. Right knee was prepped using ChloraPrep. I placed 22-gauge needles in the area of the right superior medial genicular nerve, right superior lateral genicular nerve and right inferior medial genicular nerve. Then injected bupivacaine quarter percent 1mL Depo-Medrol 25 mg, lidocaine 1% 1 mL in the each area. Patient tolerated procedure well with no complications Plan and Disposition:: We will follow-up with the patient in 2 weeks. We will reevaluate symptoms at that time
[2021-08-27 10:06] VITALS: BP 123/65; PULSE 64; RESP 18; O2SAT 100
== END 2021-08-27 10:07 | disposition home or self-care (01) ==
LOC: SC.PAINP 09:27
PROVIDERS: PCP Nurse Practitioner Family; Visit Provider Nurse Anesthetist, Certified Registered
DX: M17.11 Unilateral primary osteoarthritis, right knee (principal); F41.9 Anxiety disorder, unspecified; J45.909 Unspecified asthma, uncomplicated; F32.A Depression, unspecified; K21.9 Gastro-esophageal reflux disease without esophagitis; E78.5 Hyperlipidemia, unspecified; I10 Essential (primary) hypertension; J98.4 Other disorders of lung; R00.2 Palpitations; Z72.0 Tobacco use; Z88.8 Allergy status to other drugs, medicaments and biological substances; Z79.899 Other long term (current) drug therapy
CPT/HCPCS: 64454; J1040

== ENCOUNTER → 2021-08-31 11:47 | Outpatient (CLI) | payer MEDICARE, SELFPAY ==
[2021-08-31 12:31] LABS: Basophils # 0.1 K/mm3 (0-0.2); Basophils % 1.2 % (0.1-2.0); Eosinophils # 0.2 K/mm3 (0.0-0.4); Eosinophils % 1.9 % (0.1-12.0); Hematocrit 43.3 % (37.0-47.0); Hemoglobin 14.6 g/dL (12.2-16.2); Lymphocytes # 3.7 K/mm3 (0.7-4.5); Lymphocytes % 36.1 % (10-50); Mean Corpuscular HGB Conc 33.6 g/dL (31.8-35.4); Mean Corpuscular Hemoglobin 29.7 pg (27.0-31.2); Mean Corpuscular Volume 88.5 fl (81-99); Mean Platelet Volume 8.6 fl (7.4-10.4); Monocytes # 0.5 K/mm3 (0.1-1.0); Monocytes % 4.9 % (1.7-9.3); Neutrophils # 5.8 K/mm3 (1.8-7.8); Neutrophils % 56.1 % (37.0-80.0); Platelet Count 223 K/mm3 (142-424); Red Blood Count 4.89 M/mm3 (4.20-5.40); Red Cell Distribution Width 12.6 % (11.5-17.5); White Blood Count 10.3 K/mm3 (4.8-10.8)
[2021-08-31 13:17] LABS: Alanine Aminotransferase 20 U/L (12-78); Albumin Level 4.2 g/dl (3.5-5.0); Albumin/Globulin Ratio 1.8 (1.1-1.8); Alkaline Phosphatase 65 U/L (38-126); Anion Gap 9.8 mEq/L (5-15); Aspartate Amino Transferase 23 U/L (14-36); Bilirubin,Total 0.7 mg/dl (0.2-1.3); Blood Urea Nitrogen 26 mg/dl (7-17); Calcium 8.9 mg/dl (8.4-10.2); Carbon Dioxide 28 mmol/L (22.0-30.0); Chloride 103 mmol/L (98-107); Estimated Glomerular Filt Rate 75 ml/min (>60); GFR (African American) 91 ML/MIN (>60); Globulin 2.4 g/dL (1.3-3.2); Glucose 98 mg/dl (74-100); Potassium 3.8 mmoL/L (3.5-5.1); Sodium 137 mmol/L (136-145); Total Protein,Serum 6.6 g/dl (6.3-8.2)
[2021-08-31 13:34] LABS: Troponin I < 0.01 ng/ml (0.00-0.034)
[2021-08-31 13:49] LABS: Thyroid Stimulating Hormone 1.03 uIU/mL (0.465-4.68)
== END ==
PROVIDERS: Visit Provider Nurse Practitioner Family
DX: R42 Dizziness and giddiness (principal); R55 Syncope and collapse
CPT/HCPCS: 36415; 80053; 84443; 84484; 85025; 86140

== ENCOUNTER → 2021-09-21 14:17 | Outpatient (CLI) | payer MEDICARE, SELFPAY | LOC: RT 14:20 | PROVIDERS: PCP Nurse Practitioner Family; Visit Provider Nurse Practitioner | DX: E66.01 Morbid (severe) obesity due to excess calories (principal); E78.5 Hyperlipidemia, unspecified; J44.9 Chronic obstructive pulmonary disease, unspecified; K21.9 Gastro-esophageal reflux disease without esophagitis; R00.1 Bradycardia, unspecified; R00.2 Palpitations; R06.00 Dyspnea, unspecified; R07.89 Other chest pain; R94.31 Abnormal electrocardiogram [ECG] [EKG] | CPT/HCPCS: 93270 ==

== ENCOUNTER → 2021-09-23 11:39 | Outpatient (POV) | payer MEDICARE, SELFPAY ==
[2021-09-23 12:03] VITALS: BP 133/97; PULSE 80; RESP 18; TEMP 35.9; O2SAT 100; BMI 41.1
--- NOTE | 2021-09-23 14:20 | P.CONS_ITS ---
[facility] Pain Management SOAP Note Subjective:: Patient is a pleasant 56-year-old female presents today for follow-up after a right knee genicular nerve block on August 27, 2021. Patient is currently being treated for osteoarthritis of the right knee. After procedure, patient had significant relief of 80 to 90% that lasted for 2 to 3 days. Today, patient states that she has been having significant pain on her right leg. She has been taking her Marshall 5 mg daily which seems to help some of her pain but not all of it. She rates her pain today as 10 out of 10. [facility] [phone] with an active morphine equivalent of 5. Review of Systems: General: No recent weight changes, no fever, no sleep disturbances Respiratory: No cough, no shortness of air, no recurring pulmonary infections Cardiovascular/peripheral vascular: No chest pain, no palpitations, no edema, no shortness of breath Gastrointestinal: No new onset incontinence, normal bowel movements reported Genitourinary: No new onset incontinence Musculoskeletal: Right knee pain Psychiatric: [Normal mood/affect] Neurological: [Denies weakness in extremities], [denies balance issues] Objective:: Physical Exam: General: Alert and oriented x3, no acute distress, pleasant and cooperative Lungs: Respirations even and unlabored, symmetrical chest expansion Eyes: PERRL Musculoskeletal: Limited range of motion of the right knee secondary to pain; patient is tender to palpation around the right pes anserine Neurological: Speech clear, no gross sensory deficit Assessment:: Osteoarthritis of the right knee Plan:: Patient is significant relief of about 80 to 90% after the right genicular nerve block. Patient has tried and failed conservative therapy such as oral medication, physical therapy, home exercise for greater than 6 weeks. We will schedule the patient for a right genicular RFA. Risks and benefits of the procedure have been explained to the patient. Patient would like to proceed with the procedure. Patient has been instructed to contact the clinic with any concerns before the next appointment. Dr. Savage has reviewed this note and agrees with this plan of care. This note was dictated using voice recognition software and make contain errors or omissions. [facility] History Medical History: Reports:: Anxiety, Arrhythmia, Asthma, Congestive Heart Failure, Depression, Gastroesophageal Reflux Disease(GERD), Hyperlipidemia, Hypertension, Lung Disease, Palpitations Denies:: Cancer, Diabetes Mellitus Type 1, Diabetes Mellitus Type 2, Internal Pacemaker, MRSA, Seizures *Have you ever received a pneumonia vaccine?: No *Have you received a flu vaccine this season?: No Other Medical History: Reports: Arthritis, Other. Denies: Blood Transfusion Reaction Laterality Cases: Left: Arthroscopy Knee, Right: Arthroscopy Shoulder, Bilateral: Tonsillectomy, Other Other Surgeries: Yes: Cholecystectomy, Colonoscopy, Tubal Ligation, Other (thymus gland removal). No: Pacemaker Amputation: No Fractures: No - *Social History Smoking Status: Current every day smoker Tobacco Type: cigarettes # Packs/Day (cigarettes): 1 Alcohol Intake: never Substance Use Type: denies use *Occupational Status:: unemployed Housing: house Household Members: spouse *Travel in the last 8 weeks: None - Psychiatric History Pschychiatric History:: Reports:: Anxiety, Depression Family Hx:: No significant family history
== END ==
PROVIDERS: Visit Provider Student in an Organized Health Care Education/Training Program
DX: M17.11 Unilateral primary osteoarthritis, right knee
CPT/HCPCS: 99212; G0463

== ENCOUNTER 2021-09-24 06:25 | Day surgery (SDC) | payer MEDICARE, SELFPAY ==
[2021-09-24 09:22] VITALS: BP 155/79; PULSE 65; RESP 20; TEMP 36.6; O2SAT 98; BMI 41.1
[2021-09-24 10:15] VITALS: BP 140/84; PULSE 63; RESP 18; O2SAT 99
[2021-09-24 10:16] VITALS: BP 142/82; PULSE 59; RESP 18; O2SAT 100
--- NOTE | 2021-09-24 10:30 | P.PCN_ITS ---
- Procedure Date: 09/24/21 Time: 10:31 Anesthesiologist:: Live Romero CRNA Complications:: None Pre-procedure Diagnosis:: Osteoarthritis right knee Post-procedure Diagnosis:: Same Indications for Procedure:: Patient is a pleasant 56-year-old female there is a history of osteoarthritis bilateral knees. Her left knee has been replaced several years ago. She had a difficult recovery after having the left knee replaced. She responded very well with right knee genicular nerve block. Today she reports presents for right knee genicular nerve radiofrequency ablation. Procedure Details:: Details of the procedure were explained to the patient. The patient was taken the procedure room placed in the knee was positioned at a 45 degree angle. This right knee was cleansed using chlorhexidine as a cleansing solution. Using fluoroscopy guidance markers were placed at the bilateral genicular nerves on the distal femur. The same was identified and marked on the anterior tibia. 20-gauge RF needles were placed into the superior lateral and medial genicular nerve area. Also 1 RF needle was placed at the inferior nuclear nerve area on the anterior tibia. There is good sensory stimulation at 1 V. We also underwent motor stimulation. There was no motor stimulation at 3 V. We then anesthetize all 3 nerves with bupivacaine and Depo-Medrol. Each area was burned at 80 ?C for 90 seconds. Patient did experience some discomfort in the right knee area during the radiofrequency ablation. At the 32nd lucila EXTR bupivacaine was injected at each site. The procedure was then resumed. Patient tolerated procedure at this point forward without difficulty. [place] were removed. Band-Aid applied. Patient was reevaluated 10 minutes post procedure. She reports 0 pain in the right knee joint. Plan and Disposition:: Patient was discharged without incident. I informed the patient regarding the numbness in the knee joint for the next 3 to 4 hours. After which time pain would return into the knee for several days. However, ultimately it would feel better.
[2021-09-24 10:49] VITALS: BP 169/76; PULSE 56; RESP 20; O2SAT 100
== END 2021-09-24 10:50 | disposition home or self-care (01) ==
LOC: SC.PAINP 06:27
PROVIDERS: PCP Nurse Practitioner Family; Referring Provider Nurse Practitioner; Visit Provider Nurse Anesthetist, Certified Registered
DX: M17.11 Unilateral primary osteoarthritis, right knee (principal); E66.01 Morbid (severe) obesity due to excess calories; E78.5 Hyperlipidemia, unspecified; J44.9 Chronic obstructive pulmonary disease, unspecified; K21.9 Gastro-esophageal reflux disease without esophagitis; R00.1 Bradycardia, unspecified; R00.2 Palpitations; R06.00 Dyspnea, unspecified; R07.89 Other chest pain; R94.31 Abnormal electrocardiogram [ECG] [EKG]; Z88.8 Allergy status to other drugs, medicaments and biological substances
CPT/HCPCS: 64624; 78452; 93017; 93306; A9502; J1040; J2785

== ENCOUNTER → 2021-10-07 11:27 | Outpatient (POV) | payer MEDICARE, SELFPAY ==
[2021-10-07 12:50] VITALS: BP 114/71; PULSE 68; RESP 18; TEMP 36.7; O2SAT 98; BMI 41.1
--- NOTE | 2021-10-07 15:17 | HMH.PAINSOAP ---
[facility] Pain Management SOAP Note Subjective:: Patient is a pleasant 56-year-old female who presents today for follow-up after a right knee genicular RFA on 09/24/2021. Patient is currently being treated for osteoarthritis of the right knee. After the procedure, patient had minimal relief of symptoms. She is still complaining of pain and swelling around the medial and inferior aspect of her right knee. She did have good relief after two genicular nerve blocks that lasted for 2 to 3 days. She continues to take diclofenac 75 mg twice a day and she is also prescribed [place] 5 mg daily by her PCP. She was also taking Gabapentin 600mg TID that is prescribed by Dr. Oliveira. She rates her pain today as 9 out of 10. She states that she has trouble with any right knee flexion. Her pain does get better during knee extension. I have discussed with her previously if she has seen orthopedics for an evaluation of right TKA. She previously had left TKA. She states that she had a terrible experience with her left TKA that she is very hesitant to proceed with another one. [facility] [phone] with an active morphine equivalent of 0. Review of Systems: General: No recent weight changes, no fever, no sleep disturbances Respiratory: No cough, no shortness of air, no recurring pulmonary infections Cardiovascular/peripheral vascular: No chest pain, no palpitations, no edema, no shortness of breath Gastrointestinal: No new onset incontinence, normal bowel movements reported Genitourinary: No new onset incontinence Musculoskeletal: Right knee pain Psychiatric: [Normal mood/affect] Neurological: [Denies weakness in extremities], [denies balance issues] Objective:: Physical Exam: General: Alert and oriented x3, no acute distress, pleasant and cooperative Lungs: Respirations even and unlabored, symmetrical chest expansion Eyes: PERRL Musculoskeletal: Flexion and extension of right knee somewhat guarded secondary to pain, [antalgic gait noted]; TTP around the right Pes Anserine bursa, notable swelling Neurological: Speech clear, no gross sensory deficit Assessment:: OA of the right knee, history of left TKA Plan:: Patient had minimal relief after the right genicular RFA. She states that she continues to have pain around the medial and inferior aspect of her right knee. She is tender around the right pes anserine bursa. There is notable swelling in this area as well. We will schedule the patient for a pes anserine bursa injection. Risks and benefits of the procedure have been explained to the patient. Patient would like to proceed with the procedure. I will also order a right knee MRI for further evaluation. I highly recommend to the patient that she needs to follow-up with her orthopedic surgeon for further evaluation. She says that she will reach out to them if the next injection provides minimal relief. Patient has been instructed to contact the clinic with any concerns before the next appointment. Dr. Savage has reviewed this note and agrees with this plan of care. This note was dictated using voice recognition software and make contain errors or omissions. [facility] History Medical History: Reports:: Anxiety, Arrhythmia, Asthma, Congestive Heart Failure, Depression, Gastroesophageal Reflux Disease(GERD), Hyperlipidemia, Hypertension, Lung Disease, Palpitations Denies:: Cancer, Diabetes Mellitus Type 1, Diabetes Mellitus Type 2, Internal Pacemaker, MRSA, Seizures *Have you ever received a pneumonia vaccine?: No *Have you received a flu vaccine this season?: No Other Medical History: Reports: Arthritis, Other. Denies: Blood Transfusion Reaction Laterality Cases: Left: Arthroscopy Knee, Right: Arthroscopy Shoulder, Bilateral: Tonsillectomy, Other Other Surgeries: Yes: Cholecystectomy, Colonoscopy, Tubal Ligation, Other (thymus gland removal). No: Pacemaker Amputation: No Fractures: No - *Social History Smoking Status: Current every day smoker Tobacco Type: cigarettes
== END ==
PROVIDERS: Visit Provider Student in an Organized Health Care Education/Training Program
DX: M17.11 Unilateral primary osteoarthritis, right knee (principal); Z96.652 Presence of left artificial knee joint; Z72.0 Tobacco use
CPT/HCPCS: 99212; G0463

== ENCOUNTER → 2021-10-07 12:25 | Outpatient (CLI) | payer MEDICARE, SELFPAY ==
[2021-10-07 12:48] LABS: Basophils # 0.3 K/mm3 (0-0.2); Basophils % 2.7 % (0.1-2.0); Eosinophils # 0.3 K/mm3 (0.0-0.4); Eosinophils % 2.4 % (0.1-12.0); Hematocrit 43.9 % (37.0-47.0); Hemoglobin 14.8 g/dL (12.2-16.2); Lymphocytes # 3.2 K/mm3 (0.7-4.5); Lymphocytes % 29.8 % (10-50); Mean Corpuscular HGB Conc 33.7 g/dL (31.8-35.4); Mean Corpuscular Hemoglobin 30.5 pg (27.0-31.2); Mean Corpuscular Volume 90.6 fl (81-99); Mean Platelet Volume 8.7 fl (7.4-10.4); Monocytes # 0.4 K/mm3 (0.1-1.0); Monocytes % 3.8 % (1.7-9.3); Neutrophils # 6.5 K/mm3 (1.8-7.8); Neutrophils % 61.3 % (37.0-80.0); Platelet Count 249 K/mm3 (142-424); Red Blood Count 4.85 M/mm3 (4.20-5.40); Red Cell Distribution Width 13.7 % (11.5-17.5); White Blood Count 10.5 K/mm3 (4.8-10.8)
[2021-10-07 13:22] LABS: Anion Gap 9.8 mEq/L (5-15); Blood Urea Nitrogen 20 mg/dl (7-17); Calcium 9.3 mg/dl (8.4-10.2); Carbon Dioxide 27 mmol/L (22.0-30.0); Chloride 105 mmol/L (98-107); Estimated Glomerular Filt Rate 87 ml/min (>60); GFR (African American) 106 ML/MIN (>60); Glucose 96 mg/dl (74-100); Potassium 3.8 mmoL/L (3.5-5.1); Sodium 138 mmol/L (136-145)
[2021-10-07 14:30] LABS: Vitamin B12 270 pg/mL (239-931)
[2021-10-07 14:34] LABS: Folate 6.25 ng/mL
== END ==
PROVIDERS: Nurse Practitioner; Nurse Practitioner Family; PCP Nurse Practitioner Family; Visit Provider Internal Medicine
DX: E66.9 Obesity, unspecified (principal); E78.5 Hyperlipidemia, unspecified; I20.9 Angina pectoris, unspecified; J44.9 Chronic obstructive pulmonary disease, unspecified; K21.9 Gastro-esophageal reflux disease without esophagitis; R00.1 Bradycardia, unspecified; R00.2 Palpitations; R06.00 Dyspnea, unspecified; R07.9 Chest pain, unspecified; R94.31 Abnormal electrocardiogram [ECG] [EKG]; G47.19 Other hypersomnia; R42 Dizziness and giddiness; R53.83 Other fatigue; R55 Syncope and collapse
CPT/HCPCS: 36415; 80048; 82607; 82746; 85025; C9803; U0003; U0005

== ENCOUNTER 2021-10-08 09:01 | Day surgery (SDC) | payer MEDICARE, SELFPAY ==
[2021-10-08] VITALS (12 sets, daily range): BP systolic 104–154; BP diastolic 54–91; PULSE 55–75; RESP 16–18; TEMP 36.9; O2SAT 94–100; BMI 41.1
--- NOTE | 2021-10-08 | IR_ITS ---
APPROVED REPORT Patient Location: Outpatient Insurance Consultant: REUBEN Nava RT (R) PROCEDURES Left heart catheterization Left ventriculogram Selective coronary angiogram Drug-eluting stent deployment to the proximal LAD Drug-eluting stent deployment to the ostial proximal large first diagonal artery INDICATION Coronary artery disease, High risk abnormal Myoview, Accelerated angina pectoris Informed consent was obtained prior to the procedure. COMPLICATIONS NONE Estimated Blood Loss: LESS THAN 10 ML TECHNIQUE One percent lidocaine used to anesthetize the right anterior aspect of the wrist. The right radial artery was accessed via the Seldinger technique. A 6 Saudi Arabian sheath was placed in the right radial artery. 2.5 mg of verapamil, 800 mcg of nitroglycerin, 1mg Lidocaine and 5000 U Heparin were given through the arterial sheath. The papa catheter was also used to perform left heart catheterization, left ventriculogram and selective coronary angiogram. At the end the diagnostic angiogram therapeutic heparin was administered giving a therapeutic ACT and the guide catheter was placed in the left main artery. A Choice PT extra-support wire was placed in the circumflex artery for guide support followed by an additional Choice PT extra-support wire being placed in the distal LAD. A 3 mm x 34 mm resolute Mil[place] stent was deployed at 24 ernestina reducing the critical stenosis to 0%. There was significant jailing of a large first diagonal artery therefore the circumflex artery wire was pulled back in the left main artery and then placed into the first diagonal artery followed by 2 mm x 12 mm balloon to predilate the jailed diagonal artery. Following this a 2.75 x 26 mm resolute Milford stent was deployed at 20 ernestina reducing the severe jailed first diagonal artery stenosis to 0%. Following this a 3.5 x 12 mm balloon was placed back into the proximal LAD adjacent to the first diagonal artery and deployed at 20 ernestina post dilating the lesion. 800 mcg of intracoronary nitroglycerin was administered. JAYY-3 flow was present down the LAD diagonal artery before and after the procedure. At the end of the procedure the apparatus was removed the sheath was removed good hemostasis was achieved using TR banding patient was transferred to the postop holding in stable condition ANGIOGRAPHIC RESULTS The left main artery Normal The left anterior descending artery Has a proximal 90% stenosis immediately adjacent to a large first diagonal artery. There is an additional concentric 50% mid vessel stenosis. The first diagonal artery has atheromatous plaque creating a 30% ostial stenosis prior to any proximal LAD manipulation The circumflex artery Is a large dominant vessel and has mild proximal vascular ectatic area with what appears to be a ruptured plaque in the proximal circumflex artery creating a 10 to 20% stenosis. Distal to a large first obtuse marginal artery there is an additional 40% mid vessel stenosis prior to the terminal obtuse marginal artery complex The right coronary artery Vestigial normal The GLASS ventriculogram reveals Normal 65% The left ventricular end-diastolic pressure 20 mmHg IMPRESSION Critical proximal LAD disease as described above Successful stenting the proximal to mid LAD with bifurcating stent in an ostial proximal large first diagonal artery. Normal ejection fraction Mildly elevated LVEDP PLAN 1. Brilinta 90 twice daily plus aspirin 81 mg daily 2. LDL less than 55 to be achieved with high intensity statin 3. Maximize antianginal medication 4. Cardiac rehabilitation 5. Avoidance of tobacco products Electronically signed by : Cole Douglas MD 10/08/2021 11:26:45
--- NOTE | 2021-10-08 14:07 | HMH.PHACLD ---
Mela Carmona has received discharge medication counseling on the following medications: PATIENT IS CURRENTLY TAKING CRESTOR 5 MG HS. ADDING ASPIRIN 81 MG DAILY, PLAVIX 75 MG DAILY, LOSARTAN 50 MG DAILY, AND BISOPROLOL 5 MG DAILY.
[2021-10-08 16:31] LABS: CATHL Activated Clotting Time 254 SEC (74-125)
[2021-10-08 16:32] LABS: CATHL Activated Clotting Time > 400 SEC (74-125)
== END 2021-10-08 15:06 | disposition home or self-care (01) ==
LOC: CATHLAB 09:01
PROVIDERS: PCP Nurse Practitioner Family; Visit Provider Internal Medicine
DX: R94.39 Abnormal result of other cardiovascular function study (principal)
CPT/HCPCS: 85347; 99152; 99153; C1725; C1760; C1769; C1876; J1644; Q9967

== ENCOUNTER 2021-10-09 09:11 | Inpatient (IN) | payer MEDICARE, SELFPAY ==
[2021-10-09] VITALS (20 sets, daily range): BP systolic 116–149; BP diastolic 71–100; PULSE 60–81; RESP 14–20; TEMP 36.4–36.9; O2SAT 92–100; BMI 41.1; BMI 37.3; BMI 42.1
--- NOTE | 2021-10-09 | IR_ITS ---
APPROVED REPORT Patient Location: Emergent Tripe Cooker: REUBEN Nava RT (R) PROCEDURES Angioplasty to the first diagonal artery INDICATION Acute ST elevation myocardial infarction with stent thrombosis Informed consent was obtained prior to the procedure. COMPLICATIONS None Estimated Blood Loss: Less than 10 mls TECHNIQUE One percent lidocaine was used to anesthetize the right groin. The right femoral artery was accessed via the Seldinger technique. A 6 Mongolian sheath was placed in the right femoral artery and an EBU 3.75 guide catheter was placed in the left main artery. Angiography demonstrated a thrombosed first diagonal artery. Therapeutic heparin had been administered giving a therapeutic ACT and a Choice PT extra-support wire was placed into the first diagonal artery followed by 3 mm x 15 mm balloon deployed at 20 ernestina. This restored JAYY-3 flow. Angiographically the stent appeared wide open with excellent flow down the vessel with good angiographic transitioning. At this point the apparatus was removed the groin is reprepped closure change sheath was removed and hemostasis was achieved using Perclose device patient was transferred the postop putting in stable condition. JAYY 0 flow was present beginning the procedure with JAYY-3 flow at the end of the procedure IMPRESSION Acute thrombosis of the first diagonal artery with successful angioplasty restoring JAYY-3 flow PLAN 1. Switch Plavix to Brilinta 90 twice daily plus aspirin 81 mg daily 2. Patient strongly advised to immediately discontinue tobacco products 3. Monitor overnight 4. LDL less than 55 5. Risk factor modification Electronically signed by : Cole Douglas MD 10/09/2021 12:03:20
--- NOTE | 2021-10-09 09:11 | ECG_ITS ---
APPROVED REPORT Exam: Resting ECG HR:77 bpm ECG Measurements Heart Rate 77 AXES MT 143 P 67 QRSd 75 QRS 29 QT 385 T 50 QTc 416 Conclusion SINUS RHYTHM Late r wave progression - seen on pror tracing ABNORMAL ECG UNCONFIRMED REPORT Electronically signed by : Hemant Cardona MD 10/12/2021 18:45:13
--- NOTE | 2021-10-09 09:18 | PC.NURSE ---
has been sent the patient's ekg
--- NOTE | 2021-10-09 09:21 | PC.NURSE ---
is on the phone with . Calling Pierce to have her call the laboratory director in
--- NOTE | 2021-10-09 09:21 | PC.NURSE ---
SPOKE WITH HOUSE ABOUT GETTING FEATHER WASHER CALLED IN. WILL CALL THEM IN AT THIS TIME. DR. OLIVIA NOTIFIED.
--- NOTE | 2021-10-09 09:25 | PC.NURSE ---
AT BEDSIDE. PT CRYING IN PAIN
--- NOTE | 2021-10-09 09:25 | HMH.EDCP ---
ED Disposition Clinical Impression: Unstable angina pectoris Disposition: Still a Patient Condition on Discharge: Undetermined - Critical Care Critical Care Time: Yes Attestation: On , the high probability of a clinically significant, sudden or life threatening deterioration of the following system(s) required my full and direct attention, intervention and personal management. The time I documented below is in addition to time spent performing reported procedures but includes the following listed in this critical care notation. Total Critical Care Time: 25 Vital system(s) involved:: Circulatory Failure My critical care processes included: Assessment & monitoring of V/S, Initial and Re-exams, Data Review/Interpretation, Coordinating Care, Medication Orders and management, Documentation Medical Decision Making - Medical Records Medical records reviewed: Yes: I reviewed the patient's medical records. - Anatoly Inquiry Pt receiving controlled substance: No Orders (Tests/Meds): ED MEDICATIONS Generic Name Dose Route Start Last Admin Trade Name Freq PRN Reason Stop Dose Admin Morphine Sulfate 4 mg 10/09/21 09:23 Morphine 4mg/Ml Syringe IV 11/08/21 09:22 Q4HP PRN Mild to Moderate Pain Nitroglycerin 0.4 mg 10/09/21 09:24 Nitroglycerin 0.4mg Sl Tablet SL 11/08/21 09:23 Q5MINP PRN Chest Pain Discontinued Medications Generic Name Dose Route Start Last Admin Trade Name Freq PRN Reason Stop Dose Admin Heparin Sodium (Porcine) 11,900 unit 10/09/21 09:22 Heparin Sodium 5,000 Unit/Ml Vial 100 unit/kg (93908 unit) 10/09/21 09:23 IV ONCE ONE ORDERS Category Date Time Status CMP [Comprehensive Metabolic Panel] Stat Lab 10/09/21 09:21 Ordered Complete Blood Count Auto Diff Stat Lab 10/09/21 09:21 Ordered Prothrombin Time INR Stat Lab 10/09/21 09:21 Ordered Troponin I Q3H Lab 10/09/21 12:30 Ordered Troponin I Q3H Lab 10/09/21 15:30 Ordered Troponin I Stat Lab 10/09/21 09:21 Ordered - ECG Data Tracing #1 I reviewed this ECG and interpreted as documented below: EKG [address] elevation in the anterior lateral leads I aVL V2 with depression in lead III. Ventricular rate is 73 with sinus rhythm MA 147 QTc 404. EKG 2 is consistent with EKG 1 with a sinus rate of 77 MA 143 QTC 416 and similar EKG changes for the ST segments. Normal Sinus Rhythm: Yes Medical Decision Narrative: 56-year-old female presents status post cardiac stent placed yesterday. She has symptoms of an acute PA with mild EKG changes anterolateral mild elevations with depression in lead III. Given the story and the proximity to having a stent placed discussed with Dr. Douglas who requested activation of the Office Cleaner. Patient was given 100 units of heparin per kilogram sublingual nitroglycerin and 8 mg of morphine as well as nasal cannula oxygen therapy and will be taken to the Office Cleaner urgently. Chest Pain HPI - General Chief Complaint: Chest Pain Stated Complaint: Chest Pain Time Seen by Provider: 10/09/21 09:15 Mode of Arrival: Ambulatory Source of Information: Patient, Spouse Limitations: No Limitations - History of Present Illness HPI narrative: 56 yo F s/p cardiac stent placement who presents with chest pain that started over the last hour. She has diaphoresis and describes as a sharp pressure with radiation to both shoulders. States that the pain at this point time is 8 out of 10. she is not short of breath denies radiation into the abdomen. She has been compliant with her Plavix yesterday into this morning. Is taking 81 mg aspirin. Last doses were early this morning after awakening. Stent placed yesterday was in regards to a positive stress test she has not had an PA previously of this. - Related Data Home Medications Medication Instructions Recorded Confirmed Budesonide/Formoterol Fumarate 2 puffs IH BID 08/18/20 10/07/21 [Symbicort 160-4.5 Mcg Inh
--- NOTE | 2021-10-09 09:25 | PC.NURSE ---
09 - mason tender restoration labor team paged 09 - Zain returned call 09 - Rosanne returned call 09 - Reba returned call
--- NOTE | 2021-10-09 09:27 | XR_ITS ---
PROCEDURE INFORMATION: Exam: XR Chest Exam date and time: 10/09/2021 9:44 AM Age: 56 years old Clinical indication: Chest wall pain; Prior surgery; Surgery date: Post-operative (0-2 days); Surgery type: 2 heart stents placed yesterday; Additional info: Chest pain TECHNIQUE: Imaging protocol: XR of the chest. Views: 1 view. COMPARISON: CR XR CHEST 2V 08/26/2019 4:32 PM FINDINGS: Tubes, catheters and devices: Defibrillator pad overlies the right hemithorax. Lungs: Unremarkable. No consolidation. Pleural spaces: Unremarkable. No pleural effusion. No pneumothorax. Heart/Mediastinum: Cardiac stents are seen. Bones/joints: Median sternotomy wires are in place. IMPRESSION: No acute cardiopulmonary abnormality.
--- NOTE | 2021-10-09 09:35 | PC.NURSE ---
IV INFILTRATED WHILE PUSHING PAIN MEDS. IV RESTARTED 20 RT AC GOOD BLOOD RETURN, FLUSHED WITHOUT DIFFICULTY. PAIN MEDS GIVEN
[2021-10-09 09:42] LABS: Basophils # 0.4 K/mm3 (0-0.2); Basophils % 2.8 % (0.1-2.0); Eosinophils # 0.3 K/mm3 (0.0-0.4); Eosinophils % 2.1 % (0.1-12.0); Hematocrit 42.9 % (37.0-47.0); Hemoglobin 14.8 g/dL (12.2-16.2); Lymphocytes # 4.9 K/mm3 (0.7-4.5); Lymphocytes % 38.7 % (10-50); Mean Corpuscular HGB Conc 34.4 g/dL (31.8-35.4); Mean Corpuscular Hemoglobin 30.7 pg (27.0-31.2); Mean Corpuscular Volume 89.2 fl (81-99); Monocytes # 0.6 K/mm3 (0.1-1.0); Monocytes % 4.5 % (1.7-9.3); Neutrophils # 6.6 K/mm3 (1.8-7.8); Platelet Count 265 K/mm3 (142-424); Red Blood Count 4.81 M/mm3 (4.20-5.40); Red Cell Distribution Width 13.6 % (11.5-17.5); White Blood Count 12.6 K/mm3 (4.8-10.8)
--- NOTE | 2021-10-09 09:45 | PC.NURSE ---
radiology bedside doing a Chest x-ray.
--- NOTE | 2021-10-09 09:46 | PC.NURSE ---
X-ray in room
[2021-10-09 09:48] LABS: Prothrombin Time 10.3 seconds (10.1-12.5)
--- NOTE | 2021-10-09 09:58 | PC.NURSE ---
TO REHABILITATION TECH WITH MIDDLE SCHOOL COMBINATION TEACHER AND NURSE
--- NOTE | 2021-10-09 10:15 | PC.NURSE ---
patient is still upstairs to MRI.
[2021-10-09 10:26] LABS: Chloride 105 mmol/L (98-107); Potassium 4.2 mmoL/L (3.5-5.1); Sodium 138 mmol/L (136-145)
[2021-10-09 10:29] LABS: Alanine Aminotransferase 23 U/L (12-78); Albumin Level 4.3 g/dl (3.5-5.0); Albumin/Globulin Ratio 1.5 (1.1-1.8); Alkaline Phosphatase 74 U/L (38-126); Anion Gap 12.2 mEq/L (5-15); Aspartate Amino Transferase 41 U/L (14-36); Bilirubin,Total 0.5 mg/dl (0.2-1.3); Blood Urea Nitrogen 20 mg/dl (7-17); Carbon Dioxide 25 mmol/L (22.0-30.0); Creatinine Clearance Estimated 157 mL/min (50-200); Estimated Glomerular Filt Rate 87 ml/min (>60); GFR (African American) 106 ML/MIN (>60); Globulin 2.9 g/dL (1.3-3.2); Total Protein,Serum 7.2 g/dl (6.3-8.2)
[2021-10-09 10:30] LABS: Calcium 9.7 mg/dl (8.4-10.2); Glucose 112 mg/dl (74-100)
[2021-10-09 10:41] LABS: Troponin I 0.19 ng/ml (0.00-0.034)
--- NOTE | 2021-10-09 11:16 | PC.NURSE ---
Pt arrived to the floor at this time
[2021-10-09 12:18] LABS: CATHL Activated Clotting Time > 400 SEC (74-125)
[2021-10-09 13:47] LABS: Troponin I 5.58 ng/ml (0.00-0.034)
--- NOTE | 2021-10-09 13:50 | P.CONPHA_ITS ---
[facility] Pharmacy VTE Monitoring - Patient Demographics Admission date: 10/09/21 Report Date: 10/09/21 Time: 13:51 Allergies/Adverse Reactions: Patient Allergies atorvastatin Adverse Reaction (Intermediate, Verified 09/30/21 09:41) Height: 1.7 m Weight: 107.955 kg Patient Problems: Current Active Problems Unstable angina pectoris (Acute) - VTE Risk Labs: VTE Related Lab Results Hgb 14.8 g/dL (12.2-16.2) 10/09/21 09:24 Hct 42.9 % (37.0-47.0) 10/09/21 09:24 Plt Count 265 K/mm3 (142-424) 10/09/21 09:24 PT 10.3 seconds (10.1-12.5) 10/09/21 09:24 INR 0.90 (0.9-1.1) 10/09/21 09:24 BUN 20 mg/dl (7-17) H 10/09/21 09:24 Creatinine 0.70 mg/dl (0.52-1.04) 10/09/21 09:24 Estimated Creat Clear 157 mL/min (50-200) 10/09/21 09:24 Was VTE Risk Assessment Performed: No Clinical Trial Participant: No - Prophylaxis VTE Prophylaxis Ordered?: Yes Types of VTE Prophylaxis: TEDS Knee High Location of Applied Device: Bilateral Lower Extremeties
--- NOTE | 2021-10-09 13:51 | HMH.PHAINT ---
MEDICATION RECONCILIATION COMPLETE USING LIST FROM MOST RECENT MD OFFICE VISIT, EXTERNAL PHARMACY FILL HISTORY AND CALL TO [facility]
[2021-10-09 13:53] LABS: INR 0.96 (0.9-1.1); Prothrombin Time 10.9 seconds (10.1-12.5)
--- NOTE | 2021-10-09 14:00 | PC.NURSE ---
Notified Dr. Gao of critical troponin.
--- NOTE | 2021-10-09 16:18 | PC.NURSE ---
Dr. Gao aware of troponin of 17.9, also aware of 4 beat v tach run. NNO.
--- NOTE | 2021-10-09 18:30 | HMH.HP ---
*Admission Date: 10/09/21 *Chief complaint: chest pain *History of present illness: this patient presented to the ed -56 yo F s/p cardiac stent placement who presents with chest pain that started over the last hour. She has diaphoresis and describes as a sharp pressure with radiation to both shoulders. States that the pain at this point time is 8 out of 10. she is not short of breath denies radiation into the abdomen. She has been compliant with her Plavix yesterday into this morning. Is taking 81 mg aspirin. Last doses were early this morning after awakening. Stent placed yesterday was in regards to a positive stress test she has not had an [place] previously of this. 56-year-old female presents status post cardiac stent placed yesterday. She has symptoms of an acute [place] with mild EKG changes anterolateral mild elevations with depression in lead III. Given the story and the proximity to having a stent placed discussed with Dr. Douglas who requested activation of the C Consultant. Patient was given 100 units of heparin per kilogram sublingual nitroglycerin and 8 mg of morphine as well as nasal cannula oxygen therapy and will be taken to the C Consultant urgently. pt as sent to laboratory manager and will be admitted [facility] History I have reviewed the patient's past medical history: Yes Medical History: Reports:: Anxiety, Arrhythmia, Asthma, Congestive Heart Failure, Depression, Gastroesophageal Reflux Disease(GERD), Hyperlipidemia, Hypertension, Lung Disease, Palpitations Denies:: Cancer, Diabetes Mellitus Type 1, Diabetes Mellitus Type 2, Internal Pacemaker, MRSA, Seizures *Have you ever received a pneumonia vaccine?: No *Have you received a flu vaccine this season?: No Other Medical History: Reports: Arthritis, Other. Denies: Blood Transfusion Reaction Laterality Cases: Left: Arthroscopy Knee, Right: Arthroscopy Shoulder, Bilateral: Tonsillectomy, Other Other Surgeries: Yes: Cholecystectomy, Colonoscopy, Tubal Ligation, Other (thymus gland removal). No: Pacemaker Amputation: No Fractures: No - *Social History Smoking Status: Current every day smoker Tobacco Type: cigarettes # Packs/Day (cigarettes): 1 Alcohol Intake: never Substance Use Type: denies use *Occupational Status:: other Housing: house Household Members: spouse *Travel in the last 8 weeks: None - Psychiatric History Pschychiatric History:: Reports:: Anxiety, Depression Family Hx:: No significant family history Review of Systems - Review of Systems Review of systems:: pertinent systems reviewed and negative unless documented below - Constitutional Denies fever(s) - Eyes Denies bulging eyes - ENT Denies sore throat - *Cardiovascular Reports chest pain, Reports shortness of breath - *Respiratory Denies cough - *Gastrointestinal Denies abdominal pain - *Genitourinary Denies blood in urine - *Musculoskeletal Denies joint swelling - Integumentary/Breasts Denies rash - *Neurologic Denies seizure-like activity - Psychiatric Reports anxiety Meds Home Medications Medication Instructions Recorded Confirmed Type Budesonide/Formoterol Fumarate 2 puffs IH BID 08/18/20 10/09/21 History [Symbicort 160-4.5 Mcg Inhaler] Esomeprazole Magnesium [Nexium] 40 mg PO DAILY 08/18/20 10/09/21 History Diclofenac Sodium [Diclofenac 75mg 75 mg PO BID 08/27/21 10/09/21 History Tab] Rosuvastatin Calcium 5 mg PO DAILY 08/27/21 10/09/21 History duloxetine 60 mg capsule,delayed 60 mg PO DAILY cap 09/16/21 10/09/21 History release tizanidine 4 mg tablet 4 mg PO DAILYP PRN tab 09/16/21 10/09/21 History gabapentin 600 mg tablet 600 mg PO TIDP PRN 09/21/21 10/09/21 History Aspirin [Aspirin 81mg chewable 81 mg PO DAILY 10/08/21 10/09/21 History tab] Bisoprolol Fumarate [Bisoprolol 5 mg PO DAILY 10/08/21 10/09/21 History 5mg Tablet] Clopidogrel Bisulfate [Plavix 75mg 75 mg PO DAILY 10/08/21 10/09/21 History Tab] Losartan Potassium [Cozaar 50mg 50 mg
[2021-10-10] VITALS: BP 125/62; PULSE 70; PULSE 76; RESP 16; TEMP 36.8; O2SAT 97
[2021-10-10 04:00] VITALS: BP 102/60; PULSE 69; PULSE 70; RESP 17; TEMP 36.7; O2SAT 97
[2021-10-10 04:52] VITALS: BMI 42.2
[2021-10-10 07:19] LABS: Basophils # 0.1 K/mm3 (0-0.2); Basophils % 1.2 % (0.1-2.0); Eosinophils # 0.2 K/mm3 (0.0-0.4); Eosinophils % 1.6 % (0.1-12.0); Hematocrit 40.4 % (37.0-47.0); Hemoglobin 13.7 g/dL (12.2-16.2); Lymphocytes # 2.6 K/mm3 (0.7-4.5); Lymphocytes % 26.2 % (10-50); Mean Corpuscular Hemoglobin 30.9 pg (27.0-31.2); Mean Corpuscular Volume 90.9 fl (81-99); Mean Platelet Volume 9.3 fl (7.4-10.4); Monocytes # 0.6 K/mm3 (0.1-1.0); Monocytes % 5.6 % (1.7-9.3); Neutrophils # 6.5 K/mm3 (1.8-7.8); Neutrophils % 65.5 % (37.0-80.0); Platelet Count 211 K/mm3 (142-424); Red Blood Count 4.44 M/mm3 (4.20-5.40); Red Cell Distribution Width 13.6 % (11.5-17.5)
[2021-10-10 08:00] VITALS: BP 119/84; PULSE 70; PULSE 75; RESP 18; TEMP 36.7
[2021-10-10 08:29] LABS: Chloride 104 mmol/L (98-107); Sodium 136 mmol/L (136-145)
[2021-10-10 08:30] LABS: Potassium 4.3 mmoL/L (3.5-5.1)
[2021-10-10 08:32] LABS: Alanine Aminotransferase 26 U/L (12-78); Albumin Level 3.9 g/dl (3.5-5.0); Albumin/Globulin Ratio 1.4 (1.1-1.8); Alkaline Phosphatase 68 U/L (38-126); Anion Gap 7.3 mEq/L (5-15); Aspartate Amino Transferase 103 U/L (14-36); Bilirubin,Total 0.6 mg/dl (0.2-1.3); Blood Urea Nitrogen 15 mg/dl (7-17); Carbon Dioxide 29 mmol/L (22.0-30.0); Creatinine Clearance Estimated 86 mL/min (50-200); Estimated Glomerular Filt Rate 87 ml/min (>60); GFR (African American) 106 ML/MIN (>60); Globulin 2.7 g/dL (1.3-3.2); Total Protein,Serum 6.6 g/dl (6.3-8.2)
[2021-10-10 08:33] LABS: Calcium 9.2 mg/dl (8.4-10.2); Glucose 110 mg/dl (74-100)
--- NOTE | 2021-10-10 10:55 | HMH.DCSUM ---
General - General Admission date:: 10/09/21 Discharge date: 10/10/21 HPI HPI: this patient presented to the ed -56 yo F s/p cardiac stent placement who presents with chest pain that started over the last hour. She has diaphoresis and describes as a sharp pressure with radiation to both shoulders. States that the pain at this point time is 8 out of 10. she is not short of breath denies radiation into the abdomen. She has been compliant with her Plavix yesterday into this morning. Is taking 81 mg aspirin. Last doses were early this morning after awakening. Stent placed yesterday was in regards to a positive stress test she has not had an [place] previously of this. 56-year-old female presents status post cardiac stent placed yesterday. She has symptoms of an acute CO with mild EKG changes anterolateral mild elevations with depression in lead III. Given the story and the proximity to having a stent placed discussed with Dr. Douglas who requested activation of the Cavalry Officer. Patient was given 100 units of heparin per kilogram sublingual nitroglycerin and 8 mg of morphine as well as nasal cannula oxygen therapy and will be taken to the Cavalry Officer urgently. pt as sent to mobile home laborer and will be admitted Hospital Course Hospital Course: pt with acute chest pain after prev stent -placed 10/08/21 for angina and abn stress test - pt sudden onset of chest pain and seen in the ed with stemi presentation and went to mobile home laborer - INDICATION Acute ST elevation myocardial infarction with stent thrombosis Informed consent was obtained prior to the procedure. COMPLICATIONS None Estimated Blood Loss: Less than 10 mls TECHNIQUE One percent lidocaine was used to anesthetize the right groin. The right femoral artery was accessed via the Seldinger technique. A 6 Spanish sheath was placed in the right femoral artery and an EBU 3.75 guide catheter was placed in the left main artery. Angiography demonstrated a thrombosed first diagonal artery. Therapeutic heparin had been administered giving a therapeutic ACT and a Choice PT extra-support wire was placed into the first diagonal artery followed by 3 mm x 15 mm balloon deployed at 20 ernestina. This restored JAYY-3 flow. Angiographically the stent appeared wide open with excellent flow down the vessel with good angiographic transitioning. At this point the apparatus was removed the groin is reprepped closure change sheath was removed and hemostasis was achieved using Perclose device patient was transferred the postop putting in stable condition. JAYY 0 flow was present beginning the procedure with JAYY-3 flow at the end of the procedure IMPRESSION Acute thrombosis of the first diagonal artery with successful angioplasty restoring JAYY-3 flow PLAN 1. Switch Plavix to Brilinta 90 twice daily plus aspirin 81 mg daily 2. Patient strongly advised to immediately discontinue tobacco products 3. Monitor overnight 4. LDL less than 55 5. Risk factor modification pt has did well and no chest pain and carson diet and activity and stable exam and labs and d/c to see pcp and card - stressed compliance with meds and tob cessation Objective Vital signs: Temp Pulse Resp BP Pulse Ox 98.1 F 75 18 119/84 97 10/10/21 08:00 10/10/21 08:00 10/10/21 08:00 10/10/21 08:00 10/10/21 04:00 no acute distress, obese - *Routine HEENT Exam Head: Present: normocephalic Eye: Present: EOMI, PERRL ENT: Present: mucous membranes dry - *Routine Neck Exam Absent: JVD - *Routine Respiratory Exam Present: CTA bilaterally - *Routine Cardiovascular Exam Present: RRR, murmur - *Routine Abdominal Exam Present: soft - *Routine Extremities Exam Absent: calf tenderness - *Routine Skin Exam Present: intact - *Routine Neurological Exam Present: alert, oriented X3, CN II-XII intact. Absent: sensory deficit, motor deficit - Routine Psychiatric Exam Present: cooperative Res
--- NOTE | 2021-10-10 11:25 | HMH.PHACLD ---
Mela Carmona has received discharge medication counseling on the following medications: -ASPIRIN EC (TAKE DAILY, STOP THE CHEWABLE, WATCH FOR BLEEDING/BRUISING) -BRILINTA (TAKE TWICE DAILY, BLEED/BRUISE RISK, WATCH FOR BLOOD IN VOMIT/STOOL/URINE, BUMP HEAD = GO TO ER TO RULE OUT HEAD BLEED) -BISOPROLOL (ON PREVIOUSLY, CONTINUE) -ROSUVASTATIN (ON PREVIOUSLY, CONTINUE) -LOSARTAN (ON PREVIOUSLY, CONTINUE) -STOP TAKING THE FOLLOWING: DICLOFENAC, ASPIRIN CHEWABLE, CLOPIDOGREL PATIENT ASKED ABOUT WHAT TO TAKE IF SHE IS IN PAIN, ADVISED TYLENOL IS FINE LONG SHE DOESN'T GO ABOVE 3 GRAMS DAILY (CURRENTLY ALSO ON [place] AND WAS ADVISED TO MONITOR THE AMOUNT OF TYLENOL SHE IS TAKING)
--- NOTE | 2021-10-11 15:32 | CARE MANAGER ---
Spoke with patient during post-discharge interview, patient states that her blood pressure is low and that she takes alot of medicine and is not sure what to do about her blood pressure. Patient has follow-up appointment on 10.18.21, this patient case manager called and moved appointment with Dr. Douglas to 10.12.21 @ 2:30, this information was relayed to the patient.
== END 2021-10-10 11:55 | disposition home or self-care (01) | DRG 246 ==
LOC: ER 09:39 → 2ND 09:46
PROVIDERS: Internal Medicine; Admitting Provider Emergency Medicine; Emergency Provider Student in an Organized Health Care Education/Training Program; PCP Nurse Practitioner Family; Visit Provider Emergency Medicine
PROC: B2111ZZ Fluoroscopy of Multiple Coronary Arteries using Low Osmolar Contrast (ICD-10-PCS; principal; 2021-10-09 09:50)
DX: T82.867A Thrombosis due to cardiac prosthetic devices, implants and grafts, initial encounter (principal); I21.02 ST elevation (STEMI) myocardial infarction involving left anterior descending coronary artery; I25.110 Atherosclerotic heart disease of native coronary artery with unstable angina pectoris; I50.9 Heart failure, unspecified; I11.0 Hypertensive heart disease with heart failure; M19.90 Unspecified osteoarthritis, unspecified site; E66.01 Morbid (severe) obesity due to excess calories; F17.210 Nicotine dependence, cigarettes, uncomplicated; K21.9 Gastro-esophageal reflux disease without esophagitis; Y83.1 Surgical operation with implant of artificial internal device as the cause of abnormal reaction of the patient, or of later complication, without mention of misadventure at the time of the procedure; Z96.652 Presence of left artificial knee joint; Z20.822 Contact with and (suspected) exposure to COVID-19
CPT/HCPCS: 36415; 71045; 80048; 80053; 82607; 82746; 84484; 85025; 85347; 85610; 92928; 92929; 92941; 93005; 93458; 99152; 99153; 99212; 99291; C1725; C1760; C1769; C1876; C1894; C9600; C9601; C9606; C9803; G0463; J1644; J2405; Q9967; U0003; U0005

== ENCOUNTER → 2021-10-12 13:24 | Outpatient (CLI) | payer MEDICARE, SELFPAY | PROVIDERS: PCP Nurse Practitioner Family; Visit Provider Student in an Organized Health Care Education/Training Program | DX: M25.561 Pain in right knee (principal) ==

== ENCOUNTER 2021-10-15 12:51 | Day surgery (SDC) | payer MEDICARE, SELFPAY ==
[2021-10-15 13:33] VITALS: BP 120/67; PULSE 60; RESP 17; TEMP 36.4; O2SAT 97; BMI 41.0
--- NOTE | 2021-10-15 13:38 | P.PCN_ITS ---
- Procedure Date: 10/15/21 Time: 13:38 Anesthesiologist:: Live Romero CRNA Complications:: None Pre-procedure Diagnosis:: Osteoarthritis right knee Post-procedure Diagnosis:: Same Indications for Procedure:: Very pleasant 56-year-old female that presents our clinic today for a Ped Anserine bursa junction. She has chronic pain in and around the right knee joint. She has extreme point tenderness over the anterior medial aspect of the superior region of the tibia. She rates the pain 9/10. Patient has had genicular radiofrequency ablation that did not bring any significant impro vement. Patient states she has had a intra-articular knee injection in the past. However, this injection was not done under fluoroscopy or ultrasound. Patient has a very sizable right knee. May be difficult to get intra-articular without the use of a live x-ray for needle guidance. Today we will inject the Pes Anserine bursa. Procedure Details:: Details of the procedure were explained to the patient. The patient was taken the procedure room placed in the supine position on the fluoroscopy table. Using fluoroscopy guidance a 3-1/2 inch 22-gauge needle was used to access the upper anterior anterior portion of the tibia. 3 cc of 0.25% Marcaine +3 cc of 1% lidocaine and 40 mg of Depo-Medrol was injected. Needle was removed. Band- Aid applied. Patient tolerated procedure without difficulty. Plan and Disposition:: Patient was reevaluated 10 minutes post procedure. Patient reports some improvement right knee pain prior to discharge.
[2021-10-15 13:41] VITALS: BP 120/67; PULSE 58; RESP 18; O2SAT 99
[2021-10-15 13:42] VITALS: BP 106/55; PULSE 58; RESP 18; O2SAT 99
[2021-10-15 13:55] VITALS: BP 132/66; PULSE 57; RESP 20; O2SAT 98
== END 2021-10-15 13:55 | disposition home or self-care (01) ==
LOC: SC.PAINP 12:52
PROVIDERS: PCP Nurse Practitioner Family; Visit Provider Nurse Anesthetist, Certified Registered
DX: M17.11 Unilateral primary osteoarthritis, right knee (principal); I11.0 Hypertensive heart disease with heart failure; I50.9 Heart failure, unspecified; E78.5 Hyperlipidemia, unspecified; F41.9 Anxiety disorder, unspecified; F32.A Depression, unspecified; Z72.0 Tobacco use; M70.51 Other bursitis of knee, right knee
CPT/HCPCS: 20610; 77002; J1040

== ENCOUNTER 2021-10-19 13:54 | Outpatient (RCR) | payer MEDICARE, SELFPAY | END 2021-12-31 15:00 | disposition home or self-care (01) | LOC: PT 13:54 | PROVIDERS: Visit Provider Internal Medicine | DX: I25.10 Atherosclerotic heart disease of native coronary artery without angina pectoris (principal); Z95.5 Presence of coronary angioplasty implant and graft | CPT/HCPCS: 93798 ==

== ENCOUNTER → 2021-10-28 09:44 | Outpatient (POV) | payer MEDICARE, SELFPAY ==
[2021-10-28 09:56] VITALS: BP 135/76; PULSE 61; RESP 20; O2SAT 99; BMI 40.7
--- NOTE | 2021-10-28 10:13 | HMH.PAINSOAP ---
[facility] Pain Management SOAP Note Subjective:: Patient is a pleasant 56-year-old female who presents today for follow-up after a right-sided Pes anserine bursa injection. After this procedure, patient had significant relief of 70 to 80% around her right inferior medial pain. She says that the swelling has gone down and has been able to move her knee more. In the past, we have tried intra-articular injections and genicular RFA that provided minimal relief on this patient. She had a terrible experience with a left TKA in the past and does not want to kaur any right knee surgery at this time. I did order a right knee MRI when I last saw this patient. However, she had an episode of AR about 2 weeks ago so her MRI has been postponed to November 07. She had 2 stents placed. Today, patient states that even though the pain and swelling in the medial inferior aspect of her right knee is better. She is still having significant pain to palpation around the medial aspect of her right knee. This pain is better with knee extension. Additionally, because of her MRI, she is currently on Brilinta and baby aspirin. We have been managing this patient with diclofenac which seems to help the patient. Because she is taking Brilinta, she has been asked to discontinue her diclofenac. She is now currently just taking Tylenol arthritis 4-5 times a day. She says that this is not helping most of her pain. She would like to know if there is something else that she can take. Rates her pain today as 5 out of 10. Anatoly [id number] with an active morphine equivalent of 0. Review of Systems: General: No recent weight changes, no fever, no sleep disturbances Respiratory: No cough, no shortness of air, no recurring pulmonary infections Cardiovascular/peripheral vascular: No chest pain, no palpitations, no edema, no shortness of breath Gastrointestinal: No new onset incontinence, normal bowel movements reported Genitourinary: No new onset incontinence Musculoskeletal: Right knee pain Psychiatric: [Normal mood/affect] Neurological: [Denies weakness in extremities], [denies balance issues] Objective:: Physical Exam: General: Alert and oriented x3, no acute distress, pleasant and cooperative Lungs: Respirations even and unlabored, symmetrical chest expansion Eyes: PERRL Musculoskeletal: Flexion and extension of right knee somewhat guarded secondary to pain, [antalgic gait noted]; she is tender to palpation around the medial aspect of her right knee. Valgus test is positive for the right knee. Neurological: Speech clear, no gross sensory deficit Assessment:: Osteoarthritis of the right knee, pes anserine bursitis, right knee pain Plan:: Patient is significant relief after the right-sided pes anserine bursa injection. She still complaining of pain around the medial aspect of her right knee. She is tender to touch around this area. She has a positive valgus test. Her right knee is better with knee extension. We have tried intraarticular injection and genicular RFA that provided minimal relief. We tried to get a right knee MRI to further evaluate her right knee pain however she had an MRI about 2 weeks ago so this imaging is delayed until November 07. She was seeing [facility] in the past. She wants to wait until she gets her right knee MRI before she gets referred again to [facility] for further evaluation. In the interim, we will schedule this patient for a right medial knee TPI. She does have several areas of tenderness. Since the pt cannot take diclofenac due to her being started on brilinta, we will start this patient on tramadol 50mg BID. We will also provide this patient with some trials of pennsaid. If the patient gets significant relief from the pain side, we will order this for the patient. Patient has been instructed to contact the clinic with any concerns before the next appointment. Dr. Savage has reviewed this note and agrees with this plan of care. This note was dictated using voice recognit
== END ==
PROVIDERS: Visit Provider Student in an Organized Health Care Education/Training Program
DX: M17.11 Unilateral primary osteoarthritis, right knee (principal); M71.58 Other bursitis, not elsewhere classified, other site
CPT/HCPCS: 99212; G0463

== ENCOUNTER 2021-11-05 10:27 | Day surgery (SDC) | payer MEDICARE, SELFPAY ==
[2021-11-05 10:31] VITALS: BP 113/75; PULSE 65; RESP 18; TEMP 36.8; O2SAT 98; BMI 41.0
[2021-11-05 11:09] VITALS: BP 135/77; PULSE 74; RESP 18; O2SAT 99
[2021-11-05 11:10] VITALS: BP 140/79; PULSE 79; RESP 18; O2SAT 99
--- NOTE | 2021-11-05 11:18 | HMH.PMPROC ---
- Procedure Date: 11/05/21 Time: 11:19 Anesthesiologist:: Nato Savage MD Complications:: None Pre-procedure Diagnosis:: Right knee pain with myofascial pain in the medial aspect Post-procedure Diagnosis:: Same Indications for Procedure:: Patient is a pleasant 56-year-old white female who we are treating for right knee pain with myofascial pain in the medial aspect. We will do trigger point injections today to the medial aspect of her right knee to see if this gives her relief of her pain symptoms. Procedure Details:: Trigger point injections x2 to the medial aspect of the right knee Form consent was obtained risk and benefits of the procedure explained to the patient. Patient was taken the procedure room. The right knee was prepped using ChloraPrep. Trigger points were palpated and marked on the medial aspect. We injected a total of 10 mL bupivacaine 0.25% and Depo-Medrol 40 mg into 2 trigger points on the medial aspect of the right knee. Patient tolerated the procedure well with no complications. Plan and Disposition:: We will follow-up with her in 2 weeks. Will reevaluate symptoms at that time.
[2021-11-05 11:22] VITALS: BP 107/62; PULSE 56; RESP 20; O2SAT 98
== END 2021-11-05 11:23 | disposition home or self-care (01) ==
LOC: SC.PAINP 10:28
PROVIDERS: PCP Nurse Practitioner Family; Visit Provider Anesthesiology
DX: M17.11 Unilateral primary osteoarthritis, right knee; M79.18 Myalgia, other site
CPT/HCPCS: 20552; J1040

== ENCOUNTER → 2021-11-10 10:50 | Outpatient (CLI) | payer MEDICARE, SELFPAY ==
--- NOTE | 2021-11-10 10:54 | MR_ITS ---
FINAL REPORT CLINICAL HISTORY: right knee pain medial side knee pain that radiaes posteriorly for 8 months pain when bending/extending no injury /trauma FINDINGS: Multiplanar MR imaging of the right knee was performed without contrast. There is a tear of the posterior horn of the medial meniscus. There is a probable focal tear of the posterior horn of the lateral meniscus. The anterior and posterior cruciate ligaments are intact. The medial collateral ligament and lateral ligamentous complex are intact. The patellar and quadriceps tendons are intact. There is no evidence of fracture. There is mild lateral patellar subluxation. There is moderate degenerative change with moderate chondromalacia. Moderate joint effusion is seen. The musculature is intact. Small popliteal cyst is identified. IMPRESSION: Tear posterior horn medial meniscus. Probable tear posterior horn lateral meniscus. Degenerative change and chondromalacia. Reviewed, Interpreted and Dictated by Chapo Obrien III, MD Transcribed by Bhavani Huston Authenticated and . [facility]
== END ==
LOC: RAD 10:50
PROVIDERS: PCP Nurse Practitioner Family; Visit Provider Student in an Organized Health Care Education/Training Program
DX: M25.561 Pain in right knee (principal)
CPT/HCPCS: 73721

== ENCOUNTER → 2021-11-30 12:49 | Outpatient (CLI) | payer MEDICARE, SELFPAY ==
--- NOTE | 2021-11-30 12:52 | XR_ITS ---
FINAL REPORT CLINICAL HISTORY: wrist pain FINDINGS: AP, oblique, and lateral views of the right wrist were obtained. There is no prior exam for comparison. There is no acute fracture or dislocation. There is degenerative joint disease most pronounced at the 1st CMC joint with a soft tissue calcification adjacent to the joint. The soft tissues are normal. IMPRESSION: Degenerative joint disease. Reviewed, Interpreted and Dictated by Blanquita Charlton MD Transcribed by Frida Nur Authenticated and [facility]
== END ==
LOC: RAD 12:50
PROVIDERS: PCP Nurse Practitioner Family; Visit Provider Orthopaedic Surgery
DX: M25.531 Pain in right wrist (principal)
CPT/HCPCS: 73110

== ENCOUNTER 2021-12-03 13:53 | Outpatient (RCR) | payer MEDICARE, SELFPAY | END 2021-12-03 14:55 | disposition home or self-care (01) | LOC: OT 13:53 | PROVIDERS: Visit Provider Orthopaedic Surgery | DX: M25.531 Pain in right wrist (principal) | CPT/HCPCS: 97763 ==

== ENCOUNTER → 2021-12-07 11:57 | Outpatient (CLI) | payer MEDICARE, SELFPAY ==
--- NOTE | 2021-12-07 12:09 | XR_ITS ---
FINAL REPORT CLINICAL HISTORY: pain FINDINGS: Right ankle Three views were obtained. There is no acute fracture or dislocation. There are mild degenerative changes. Calcaneal spurs are identified. There are small calcifications in the region of the Achilles tendon. IMPRESSION: Degenerative changes without acute osseous abnormality. Reviewed, Interpreted and Dictated by Chapo Obrien III, MD Transcribed by Bhavani Huston Authenticated and . [facility]
--- NOTE | 2021-12-07 12:09 | XR_ITS ---
FINAL REPORT CLINICAL HISTORY: ankle pain FINDINGS: Left ankle Three views were obtained. There is no acute fracture or dislocation. There are mild degenerative changes. Calcaneal spurs are identified. There are small calcifications in the region of the Achilles tendon. IMPRESSION: Degenerative changes without acute osseous abnormality. Reviewed, Interpreted and Dictated by Chapo Obrien III, MD Transcribed by Bhavani Huston Authenticated and [facility]
[2021-12-07 12:53] LABS: Alanine Aminotransferase 16 U/L (12-78); Alkaline Phosphatase 79 U/L (38-126); Aspartate Amino Transferase 24 U/L (14-36); Bilirubin,Direct 0.3 mg/dl (0.0-0.4); Bilirubin,Indirect 0.1 mg/dL (0.0-0.9); Bilirubin,Total 0.4 mg/dl (0.2-1.3); Bilirubin,Unconjugated 0.2 mg/dL (0.0-1.1)
[2021-12-07 12:54] LABS: Albumin Level 4.2 g/dl (3.5-5.0); Cholesterol 212 mg/dl (140-200); HDL Cholesterol 70 mg/dl (40-60); Total Protein,Serum 6.7 g/dl (6.3-8.2); Triglycerides 88 mg/dl (30-150); VLDL Cholesterol 18 mg/dL (0-40)
[2021-12-07 13:05] LABS: Direct LDL Cholesterol 114.58 mg/dL (100-129)
== END ==
LOC: LAB 11:58
PROVIDERS: PCP Podiatrist; Visit Provider Nurse Practitioner
DX: E78.5 Hyperlipidemia, unspecified (principal); I10 Essential (primary) hypertension; I25.10 Atherosclerotic heart disease of native coronary artery without angina pectoris; R06.00 Dyspnea, unspecified; R42 Dizziness and giddiness; Z72.0 Tobacco use; M25.572 Pain in left ankle and joints of left foot; M25.571 Pain in right ankle and joints of right foot
CPT/HCPCS: 36415; 73610; 80061; 80076

== ENCOUNTER → 2022-01-04 15:39 | Outpatient (CLI) | payer MEDICARE, SELFPAY ==
[2022-01-04 16:32] LABS: Basophils # 0.1 K/mm3 (0-0.2); Basophils % 0.7 % (0.1-2.0); Eosinophils % 0.4 % (0.1-12.0); Hemoglobin 14.3 g/dL (12.2-16.2); Lymphocytes # 2.6 K/mm3 (0.7-4.5); Lymphocytes % 21.8 % (10-50); Mean Corpuscular HGB Conc 32.6 g/dL (31.8-35.4); Mean Corpuscular Hemoglobin 29.7 pg (27.0-31.2); Mean Corpuscular Volume 91.1 fl (81-99); Mean Platelet Volume 8.7 fl (7.4-10.4); Monocytes # 0.5 K/mm3 (0.1-1.0); Monocytes % 4.3 % (1.7-9.3); Neutrophils # 8.5 K/mm3 (1.8-7.8); Neutrophils % 72.7 % (37.0-80.0); Platelet Count 268 K/mm3 (142-424); Red Blood Count 4.83 M/mm3 (4.20-5.40); Red Cell Distribution Width 13.5 % (11.5-17.5); White Blood Count 11.7 K/mm3 (4.8-10.8)
== END ==
PROVIDERS: PCP Nurse Practitioner Family; Visit Provider Nurse Practitioner Family
DX: Z20.828 Contact with and (suspected) exposure to other viral communicable diseases (principal); R50.9 Fever, unspecified; R05.1 Acute cough
CPT/HCPCS: 36415; 85025; 87275; 87276; C9803; U0003; U0005

== ENCOUNTER → 2022-02-03 12:38 | Outpatient (CLI) | payer MEDICARE, SELFPAY ==
[2022-02-03 13:09] LABS: Basophils # 0.1 K/mm3 (0-0.2); Basophils % 1.4 % (0.1-2.0); Eosinophils # 0.2 K/mm3 (0.0-0.4); Hematocrit 42.3 % (37.0-47.0); Hemoglobin 13.5 g/dL (12.2-16.2); Lymphocytes # 3.3 K/mm3 (0.7-4.5); Lymphocytes % 33.2 % (10-50); Mean Corpuscular HGB Conc 31.9 g/dL (31.8-35.4); Mean Corpuscular Hemoglobin 29.5 pg (27.0-31.2); Mean Corpuscular Volume 92.4 fl (81-99); Mean Platelet Volume 8.7 fl (7.4-10.4); Monocytes # 0.4 K/mm3 (0.1-1.0); Monocytes % 3.9 % (1.7-9.3); Neutrophils # 5.9 K/mm3 (1.8-7.8); Neutrophils % 59.6 % (37.0-80.0); Platelet Count 230 K/mm3 (142-424); Red Blood Count 4.58 M/mm3 (4.20-5.40); Red Cell Distribution Width 13.5 % (11.5-17.5); White Blood Count 9.8 K/mm3 (4.8-10.8)
[2022-02-03 13:32] LABS: Chloride 103 mmol/L (98-107)
[2022-02-03 13:33] LABS: Potassium 4.4 mmoL/L (3.5-5.1); Sodium 141 mmol/L (136-145)
[2022-02-03 13:35] LABS: Alanine Aminotransferase 16 U/L (12-78); Alkaline Phosphatase 69 U/L (38-126); Anion Gap 16.4 mEq/L (5-15); Aspartate Amino Transferase 27 U/L (14-36); Bilirubin,Indirect 0.2 mg/dL (0.0-0.9); Bilirubin,Total 0.2 mg/dl (0.2-1.3); Bilirubin,Unconjugated 0.2 mg/dL (0.0-1.1); Blood Urea Nitrogen 21 mg/dl (7-17); Carbon Dioxide 26 mmol/L (22.0-30.0); Estimated Glomerular Filt Rate 87 ml/min (>60); GFR (African American) 106 ML/MIN (>60)
[2022-02-03 13:36] LABS: Albumin Level 4.4 g/dl (3.5-5.0); Calcium 9.1 mg/dl (8.4-10.2); Chol/HDL Ratio 2.1 (1-3.5); Cholesterol 155 mg/dl (140-200); Glucose 85 mg/dl (74-100); HDL Cholesterol 75 mg/dl (40-60); Magnesium 1.7 mg/dl (1.6-2.3); Total Protein,Serum 6.9 g/dl (6.3-8.2); Triglycerides 89 mg/dl (30-150); VLDL Cholesterol 18 mg/dL (0-40)
[2022-02-03 13:47] LABS: Direct LDL Cholesterol 57.04 mg/dL (100-129)
[2022-02-03 14:07] LABS: Thyroid Stimulating Hormone 0.67 uIU/mL (0.465-4.68)
== END ==
PROVIDERS: PCP Nurse Practitioner Family; Visit Provider Physician Assistant
DX: E66.01 Morbid (severe) obesity due to excess calories (principal); E78.5 Hyperlipidemia, unspecified; I10 Essential (primary) hypertension; I25.10 Atherosclerotic heart disease of native coronary artery without angina pectoris; T82.867A Thrombosis due to cardiac prosthetic devices, implants and grafts, initial encounter; Z72.0 Tobacco use; Z68.41 Body mass index [BMI] 40.0-44.9, adult
CPT/HCPCS: 36415; 80048; 80061; 80076; 83735; 84439; 84443; 85025

== ENCOUNTER → 2022-02-23 10:21 | Outpatient (CLI) | payer MEDICARE, SELFPAY ==
--- NOTE | 2022-02-23 10:21 | MR_ITS ---
FINAL REPORT CLINICAL HISTORY: RT LATERAL/POSTERIOR ANKLE PAIN AND BURNING UP HEEL. NO INJURY. SMPTOMS X8 MONTHS FINDINGS: Multiplanar MR imaging of the right ankle was performed without contrast. There are mild degenerative changes. The bony structures are intact without evidence of fracture, bone bruise or marrow edema. No osteochondral lesion is identified. The ligaments are intact without evidence of injury. A small partial tear is seen in the posterior tibial tendon as well as small partial tears of the peroneus longus and brevis tendons. There is distal Achilles tendinitis with the tendon measuring 13 mm in AP dimension and a small intrasubstance tear. There is fluid in the retrocalcaneal bursa consistent with retrocalcaneal bursitis. There are calcaneal spurs. No significant joint effusion is seen. The musculature is intact. There is no evidence of soft tissue mass or cyst. IMPRESSION: Small partial tears of the posterior tibial tendon, peroneus longus and peroneus brevis tendons. Distal Achilles tendinitis with small intrasubstance tear. Retrocalcaneal bursitis. Reviewed, Interpreted and Dictated by Chapo Obrien III, MD Transcribed by Lanny Drew Authenticated and [facility]
== END ==
LOC: RAD 10:21
PROVIDERS: PCP Nurse Practitioner Family; Visit Provider Podiatrist
DX: M25.571 Pain in right ankle and joints of right foot (principal)
CPT/HCPCS: 73721

== ENCOUNTER → 2022-03-10 09:39 | Outpatient (POV) | payer MEDICARE, SELFPAY ==
[2022-03-10 10:18] VITALS: BP 105/49; PULSE 61; RESP 18; TEMP 36.6; O2SAT 95; BMI 40.7
--- NOTE | 2022-03-10 12:39 | EXP.PAIN.SOA ---
[facility] Pain Management SOAP Note Subjective:: Patient is a pleasant 56-year-old female who presents today for follow-up. We are currently treating the patient for osteoarthritis of the right knee, Pez anserine bursitis, right knee pain. Today she rates her pain a 8 out of 10. Patient denies any new trauma or injury. Patient states she is experiencing more pain at her bilateral hips that radiate down to her knee and that is worse at night. Patient describes this as a aching sensation that is also worse with increased activity. Patient has had injective therapy in the past that provided some relief. Patient does manage her pain symptoms with Tylenol arthritis. Patient is also prescribed tizanidine 4 mg at night however she feels like she has had worsening pain and requesting additional relief. Patient is currently prescribed tramadol 50 mg twice a day from Dr. Infante's office. Patient denies any side effects from this medication. She states this medication does adequately help her pain symptoms. Her Anatoly is [id number]. It is been reviewed and appropriate. Review of Systems: General: No recent weight changes, no fever, no sleep disturbances Respiratory: No cough, no shortness of air, no recurring pulmonary infections Cardiovascular/peripheral vascular: No chest pain, no palpitations, no edema, no shortness of breath Gastrointestinal: No new onset incontinence, normal bowel movements reported Genitourinary: No new onset incontinence Musculoskeletal: Bilateral hip pain, low back pain, leg pain Psychiatric: [Normal mood/affect] Neurological: [Denies weakness in extremities], [denies balance issues] Objective:: Physical Exam: General: Alert and oriented x3, no acute distress, pleasant and cooperative Lungs: Respirations even and unlabored, symmetrical chest expansion Eyes: PERRL Musculoskeletal: Flexion and extension of lumbar [spine] somewhat guarded secondary to pain, [antalgic gait noted]. Point tenderness along bilateral SI's and positive bilateral Jesus Alberto's, Sravanthi's, Gaenslen's, compression and distraction exam Neurological: Speech clear, no gross sensory deficit Assessment:: Right knee osteoarthritis, Pez anserine bursitis, right knee pain, sacroiliitis Plan:: Patient is experiencing significant pain along her low back that radiates into her bilateral hips and down to her bilateral knees. Patient did have limited range of motion of her lumbar spine and point tenderness along bilateral SI's as well as positive bilateral Jesus Alberto's, Sravanthi's, Gaenslen's, compression and distraction exam. I have discussed with the patient that she may benefit from bilateral SI injections. Risk and benefits were discussed with the patient. She would like to proceed forward with this plan of care. I will also change her tizanidine from at night to 3 times a day. I will provide a 1 month supply of this medication. We will schedule the patient for bilateral SI injections. Patient has been instructed to contact the clinic with any concerns before the next appointment. Dr. Savage has reviewed this note and agrees with this plan of care. This note was dictated using voice recognition software and make contain errors or omissions. [facility] Medical History Abnormal EKG Anxiety Arrhythmia CHF (congestive heart failure) Coronary artery disease Depression Dizziness Dyspnea GERD (gastroesophageal reflux disease) HTN (hypertension) Hyperlipidemia Lung disease Myocardial infarction Obesity Palpitations Sinus bradycardia Surgical History H/O arthroscopy of left knee History of arthroscopy of right shoulder Social History Smoking Status: Former smoker second hand exposure: No alcohol intake: never substance use type: denies use current occupational status: disabled Travel in the last 8 weeks: Non
== END | disposition home or self-care (01) ==
PROVIDERS: PCP Nurse Practitioner Family; Visit Provider Nurse Practitioner Family
DX: M17.11 Unilateral primary osteoarthritis, right knee (principal); M46.1 Sacroiliitis, not elsewhere classified; M71.9 Bursopathy, unspecified
CPT/HCPCS: 99212; G0463

== ENCOUNTER 2022-03-13 02:32 | Emergency (ER) | payer MEDICARE, SELFPAY ==
[2022-03-13 02:34] VITALS: BP 117/41; PULSE 67; RESP 18; TEMP 36.7; O2SAT 98; BMI 40.7
--- NOTE | 2022-03-13 02:46 | ECG_ITS ---
APPROVED REPORT Exam: Resting ECG HR:62 bpm ECG Measurements Heart Rate 62 AXES AR 130 P 75 QRSd 84 QRS 83 QT 407 T 116 QTc 411 Conclusion SINUS RHYTHM NONSPECIFIC T-WAVE ABNORMALITY BORDERLINE ECG UNCONFIRMED REPORT Electronically signed by : Hemant Cardona MD 03/13/2022 08:52:32
--- NOTE | 2022-03-13 02:46 | XR_ITS ---
PROCEDURE INFORMATION: Exam: XR Chest Exam date and time: 03/13/2022 3:13 AM Age: 56 years old Clinical indication: Chest wall pain; Additional info: Left back/lateral chest wall pain TECHNIQUE: Imaging protocol: Radiologic exam of the chest. Views: 1 view. COMPARISON: CR XR CHEST PORTABLE 10/09/2021 9:44 AM FINDINGS: Lungs: Unremarkable. No consolidation. Pleural spaces: Unremarkable. No pleural effusion. No pneumothorax. Heart/Mediastinum: Changes of prior CABG. Bones/joints: Unremarkable. IMPRESSION: No acute cardiopulmonary abnormality.
[2022-03-13 02:56] LABS: Microscopic, Urine URINE MICROSCOPIC (MICROSCOPIC)
[2022-03-13 02:58] LABS: Appearance,Urine SL CLOUDY (Clear); Bilirubin,Urine Negative (Negative); Blood, Urine Negative (Negative); Color,Urine YELLOW (Yellow); Glucose,Urine (UA) Negative (Negative); Ketones,Urine Negative (Negative); Leukocyte Esterase,Urine Negative (Negative); Nitrate,Urine Negative (Negative); Protein,Urine Negative (Negative); Specific Gravity, Urine 1.025 (1.005-1.030)
[2022-03-13 03:03] LABS: Mucus,Urine 1+ /lpf; WBC,Urine Occasional #/hpf (0-3)
--- NOTE | 2022-03-13 03:03 | PC.NURSE ---
RAD at for CXR
--- NOTE | 2022-03-13 03:07 | HMH.EDGENADL ---
Discharge Plan Disposition Patient Disposition: Home, Self-Care Prescriptions Prescriptions: No Action sertraline 50 mg tablet 50 mg PO DAILY ropinirole 0.25 mg tablet 0.25 mg PO HS esomeprazole magnesium 40 mg capsule,delayed release(DR/EC) 40 mg PO DAILY naproxen 250 mg tablet 250 mg PO BID PRN (Reason: pain) Qty: 60 3RF tramadol 50 mg tablet 50 mg PO BID PRN (Reason: pain) 30 Days Qty: 60 0RF aspirin 81 mg tablet,delayed release (DR/EC) 81 mg PO DAILY Qty: 90 3RF prasugrel [Effient] 10 mg tablet 10 mg PO DAILY Repatha SureClick 140 mg/mL pen injector 140 mg SQ Q2W tizanidine [Zanaflex] 4 mg tablet 4 mg PO TID budesonide-formoterol 10.2 GM HFA aerosol inhaler 2 puffs IH BID rosuvastatin 5 MG tablet 5 mg PO DAILY albuterol sulfate 8.5 GM HFA aerosol inhaler 1 puff IH Q4HP PRN (Reason: Shortness Of Breath) Referrals Follow up/Referrals: Angeles Hartman APRN [Primary Care Provider] - See instructions Activity Restrictions/Add. Instructions Additional Instructions/Restrictions: Please follow-up with your regular doctor regarding your pain management. Recommend trying to apply heat or ice to the area and light stretches. Please do not strain the area. I hope you feel better! Clinical Impressions Clinical Impression: Acute left flank pain Instructions Patient Instructions: DI for Low Back Pain Discharge ED Provider: Kim Fernandez Adult HPI General Chief complaint: Back Pain/Injury Stated complaint: Pain in left side of back and left rib cage Time Seen by Provider: 03/13/22 02:45 Mode of Arrival: Ambulatory Source of Information: Patient Limitations: No Limitations Description of Symptoms (Recalled from ER Triage Doc. by RN): pt c/o left middle back pain that radiates into her left side since 2 pm yesterday. States that the pain began while riding in the vehicle. Denies any injury. Says that heat made the pain better and she was able to sleep but the pain woke her up one hour ago. History of Present Illness HPI narrative: 56-year-old female with PMHx of CAD, lymphedema, HLD who presents with left-sided back/flank pain that began yesterday. She states that it waxes and wanes and acutely worsened over the past hour prompting current evaluation. No prior occurrence of similar symptoms. She describes the pain as left-sided back/flank that radiates into her left upper quadrant. No trauma to the area. No chest pain, other abdominal pain, dysuria, hematuria, changes in bowel movements. No alleviating or exacerbating factors. She has mild nausea but no vomiting. Patient has tried tramadol and muscle relaxers. She is on aspirin and Plavix. Related Data Home Medications Medication Instructions Recorded Confirmed budesonide-formoterol HFA 160 2 puffs inhalation BID Asthma 08/18/20 03/13/22 mcg-4.5 mcg/actuation aerosol inhaler rosuvastatin 5 mg tablet 5 mg PO DAILY High cholesterol 08/27/21 03/13/22 albuterol sulfate 90 mcg/actuation 1 puff inhalation Q4HP PRN 10/09/21 03/13/22 aerosol inhaler Shortness Of Breath esomeprazole magnesium 40 mg 40 mg PO DAILY SUPPLIMENT 12/07/21 03/13/22 capsule,delayed release ropinirole 0.25 mg tablet 0.25 mg PO HS RESTLESS LEGS 12/07/21 03/13/22 sertraline 50 mg tablet 50 mg PO DAILY MOOD 12/07/21 03/13/22 evolocumab 140 mg/mL subcutaneous 140 mg SQ Q2W . 03/10/22 03/13/22 pen injector (Oumar Gill) prasugrel 10 mg tablet (Effient) 10 mg PO DAILY Blood thinner 03/10/22 03/13/22 tizanidine 4 mg tablet (Zanaflex) 4 mg PO TID muscle spasms 03/13/22 03/13/22 Previous Rx's Medication Instructions Recorded aspirin 81 mg tablet,delayed 81 mg PO DAILY . #90 tabs 11/16/21 release naproxen 250 mg tablet 250 mg PO BID PRN pain #60 tabs 01/24/22 tramadol 50 mg tablet 50 mg PO BID PRN pain 30 days #60 02/28/22 tabs Allergies Allergy/AdvReac Type Severity Reaction Status Date /
[2022-03-13 03:08] LABS: Basophils # 0.2 K/mm3 (0-0.2); Basophils % 1.2 % (0.1-2.0); Eosinophils # 0.2 K/mm3 (0.0-0.4); Eosinophils % 1.7 % (0.1-12.0); Hematocrit 41.9 % (37.0-47.0); Hemoglobin 13.5 g/dL (12.2-16.2); Lymphocytes % 30.6 % (10-50); Mean Corpuscular HGB Conc 32.3 g/dL (31.8-35.4); Mean Corpuscular Hemoglobin 30.3 pg (27.0-31.2); Mean Corpuscular Volume 93.8 fl (81-99); Mean Platelet Volume 9.1 fl (7.4-10.4); Monocytes # 0.6 K/mm3 (0.1-1.0); Monocytes % 4.8 % (1.7-9.3); Neutrophils # 8.1 K/mm3 (1.8-7.8); Neutrophils % 61.7 % (37.0-80.0); Platelet Count 240 K/mm3 (142-424); Red Blood Count 4.46 M/mm3 (4.20-5.40); Red Cell Distribution Width 13.5 % (11.5-17.5); White Blood Count 13.2 K/mm3 (4.8-10.8)
[2022-03-13 03:13] LABS: Chloride 104 mmol/L (98-107); Potassium 4.1 mmoL/L (3.5-5.1); Sodium 139 mmol/L (136-145)
[2022-03-13 03:15] LABS: Blood Urea Nitrogen 16 mg/dl (7-17); Creatinine Clearance Estimated 171 mL/min (50-200); Estimated Glomerular Filt Rate 87 ml/min (>60); GFR (African American) 106 ML/MIN (>60)
[2022-03-13 03:16] LABS: Alanine Aminotransferase 15 U/L (12-78); Albumin Level 4.2 g/dl (3.5-5.0); Albumin/Globulin Ratio 1.5 (1.1-1.8); Alkaline Phosphatase 71 U/L (38-126); Anion Gap 11.1 mEq/L (5-15); Aspartate Amino Transferase 25 U/L (14-36); Bilirubin,Total 0.5 mg/dl (0.2-1.3); Calcium 9.4 mg/dl (8.4-10.2); Carbon Dioxide 28 mmol/L (22.0-30.0); Creatine Kinase 74 U/L (30-135); Globulin 2.8 g/dL (1.3-3.2); Glucose 83 mg/dl (74-100); Lipase 28 U/L (23-300)
[2022-03-13 03:25] LABS: CKMB Relative Index 1.4 U/L (0-4.0)
[2022-03-13 03:33] VITALS: BP 92/58; PULSE 64; O2SAT 95
[2022-03-13 03:40] LABS: Troponin I < 0.01 ng/ml (0.00-0.034)
--- NOTE | 2022-03-13 03:52 | CT_ITS ---
PROCEDURE INFORMATION: Exam: CTA Chest With Contrast Exam date and time: 03/13/2022 5:09 AM Age: 56 years old Clinical indication: Pain; Chest pressure and left-sided; Additional info: Left chest wall pain/flank pain, h/o blood clot TECHNIQUE: Imaging protocol: Computed tomographic angiography of the chest with contrast. 3D rendering (Not supervised by radiologist): MIP and/or 3D reconstructed images were created by the technologist. Radiation optimization: All CT scans at this facility use at least one of these dose optimization techniques: automated exposure control; mA and/or kV adjustment per patient size (includes targeted exams where dose is matched to clinical indication); or iterative reconstruction. Contrast material: ISOVUE; Contrast volume: 70 ml; Contrast route: INTRAVENOUS (IV); COMPARISON: [facility] CT CHEST W/ CONTRAST 02/03/2017 12:59 PM FINDINGS: Pulmonary arteries: Normal. No pulmonary emboli. Aorta: Unremarkable. No aortic aneurysm. No aortic dissection. Lungs: Minimal bibasilar atelectasis. Calcified granuloma in the right lung. Pleural spaces: Unremarkable. No pneumothorax. No pleural effusion. Heart: Changes of prior CABG. Lymph nodes: Unremarkable. No enlarged lymph nodes. Bones/joints: Unremarkable. No acute fracture. Soft tissues: Unremarkable. IMPRESSION: No pulmonary emboli or other acute cardiopulmonary pathology identified.
--- NOTE | 2022-03-13 03:52 | CT_ITS ---
PROCEDURE INFORMATION: Exam: CT Abdomen And Pelvis With Contrast Exam date and time: 03/13/2022 5:13 AM Age: 56 years old Clinical indication: Pain; Other: Left chest/back; Additional info: Left flank pain/luq pain TECHNIQUE: Imaging protocol: Computed tomography of the abdomen and pelvis with contrast. Radiation optimization: All CT scans at this facility use at least one of these dose optimization techniques: automated exposure control; mA and/or kV adjustment per patient size (includes targeted exams where dose is matched to clinical indication); or iterative reconstruction. Contrast material: ISOVUE; Contrast volume: 70 ml; Contrast route: IV; COMPARISON: [facility] CT abdomen pelvis w con 04/29/2018 9:15 PM FINDINGS: Liver: Normal. No mass. Gallbladder and bile ducts: Cholecystectomy. Pancreas: Normal. No ductal dilation. Spleen: Calcified splenic granulomas. Adrenal glands: Normal. No mass. Kidneys and ureters: Right renal cyst. Partially duplicated left renal collecting system. Stomach and bowel: Unremarkable. No obstruction. No mucosal thickening. Appendix: No evidence of appendicitis. Intraperitoneal space: Unremarkable. No free air. No significant fluid collection. Vasculature: Unremarkable. No abdominal aortic aneurysm. Lymph nodes: Unremarkable. No enlarged lymph nodes. Urinary bladder: Unremarkable as visualized. Reproductive: Unremarkable as visualized. Bones/joints: Unremarkable. No acute fracture. Soft tissues: Moderate fat containing umbilical hernia. IMPRESSION: No acute findings. COMMENTS: Consistent with the [employer]'s Incidental Findings Committee white paper (J Am [place] Radiol 2018): Any incidental renal lesion less than 1 cm or classified as too small to characterize, or any incidental cystic renal lesion characterized as simple-appearing, is likely benign. No follow-up imaging is recommended for these lesions per consensus recommendations based on imaging criteria.
[2022-03-13 04:37] VITALS: BP 113/59; PULSE 65; O2SAT 98
--- NOTE | 2022-03-13 04:39 | PC.NURSE ---
Pt complains she is still having pain. MD notified.
[2022-03-13 06:54] VITALS: BP 115/60; PULSE 68; RESP 18; TEMP 36.6; O2SAT 99
== END 2022-03-13 06:58 | disposition home or self-care (01) ==
PROVIDERS: Emergency Provider Student in an Organized Health Care Education/Training Program; PCP Nurse Practitioner Family
DX: R07.81 Pleurodynia (principal); R10.32 Left lower quadrant pain; R10.12 Left upper quadrant pain; R06.02 Shortness of breath; R42 Dizziness and giddiness; R00.1 Bradycardia, unspecified; M54.9 Dorsalgia, unspecified; R94.31 Abnormal electrocardiogram [ECG] [EKG]; I11.0 Hypertensive heart disease with heart failure; I50.9 Heart failure, unspecified; K21.9 Gastro-esophageal reflux disease without esophagitis; E78.5 Hyperlipidemia, unspecified; I25.2 Old myocardial infarction; J98.4 Other disorders of lung; E66.9 Obesity, unspecified; Z79.1 Long term (current) use of non-steroidal anti-inflammatories (NSAID); Z79.51 Long term (current) use of inhaled steroids; Z79.82 Long term (current) use of aspirin; Z79.899 Other long term (current) drug therapy; Z88.8 Allergy status to other drugs, medicaments and biological substances; Z68.41 Body mass index [BMI] 40.0-44.9, adult; Z87.891 Personal history of nicotine dependence
CPT/HCPCS: 71045; 71275; 74177; 80053; 81001; 82550; 82553; 83690; 84484; 85025; 93005; 96361; 96374; 96375; 99285; Q9967

== ENCOUNTER 2022-03-15 08:34 | Day surgery (SDC) | payer MEDICARE, SELFPAY ==
[2022-03-15 08:45] VITALS: BP 116/54; PULSE 79; RESP 18; TEMP 36.5; O2SAT 99; BMI 40.7
[2022-03-15 09:19] VITALS: BP 127/70; PULSE 57; RESP 18; O2SAT 97
[2022-03-15 09:20] VITALS: BP 127/70; PULSE 57; RESP 18; O2SAT 97
[2022-03-15 09:33] VITALS: BP 118/61; PULSE 70; RESP 18; O2SAT 99
--- NOTE | 2022-03-15 09:39 | P.PCN_ITS ---
Procedure Date: 03/15/22 Time: 09:30 Anesthesiologist:: Live Romero CRNA Complications:: None Pre-procedure Diagnosis:: Bilateral sacroiliitis Post-procedure Diagnosis:: Same Indications for Procedure:: Very pleasant 56-year-old female comes our clinic today for bilateral sacroiliac joint injections. She describes her pain as constant, dull, sharp, stabbing. Pain increases with sitting and/or standing for any length of time. She rates her pain 7/10. Upon examination she has extreme point tenderness over the bilateral sacroiliac joints. Procedure Details:: Procedure: Bilateral sacroiliac joint injections under fluoroscopy Informed consent was obtained and the risks and benefits of the procedure were explained to the patient.~ The patient was taken to the procedure room and noninvasive monitors were placed including a noninvasive blood pressure cuff and pulse oximeter.~ The patient was placed prone on the procedure table. Both hips were cleansed using Betadine as a cleansing solution. C-arm fluoroscopy was used to view the right sacroiliac joint.~ The skin and subcutaneous tissues were anesthetized using lidocaine 1.5% and a 25-gauge needle.~ After this, a 22-gauge spinal needle was inserted under fluoroscopic guidance into the inferior aspect of the right sacroiliac joint.~ Omnipaque dye was injected and good spread was seen throughout the joint.~ After this, approximately 5 mL of bupivacaine, 0.25% and Depo-Medrol, 40 mg was incrementally injected into the right sacroiliac joint. We then moved to the left sacroiliac joint.~ The skin and subcutaneous tissues were anesthetized using lidocaine 1.5% and a 25-gauge needle.~ After this, a 22- gauge spinal needle was inserted under fluoroscopic guidance into the inferior aspect of the left sacroiliac joint.~ Omnipaque dye was injected and good spread was seen throughout the joint. After this, approximately 5 mL of bupivacaine, 0.25% and Depo-Medrol, 40 mg was incrementally injected into the left sacroiliac joint.~ The patient tolerated the procedure well with no complications. The patient was observed in the Pain Clinic and then was discharged home neurologically intact. Plan and Disposition:: Patient was discharged without incident
== END 2022-03-15 09:33 | disposition home or self-care (01) ==
LOC: SC.PAINP 08:34
PROVIDERS: PCP Nurse Practitioner Family; Visit Provider Nurse Anesthetist, Certified Registered
DX: M46.1 Sacroiliitis, not elsewhere classified (principal)
CPT/HCPCS: 27096; G0260; J1030

== ENCOUNTER → 2022-03-29 10:36 | Outpatient (POV) | payer MEDICARE, SELFPAY ==
[2022-03-29 10:45] VITALS: BP 116/77; PULSE 71; RESP 18; O2SAT 94; BMI 40.7
--- NOTE | 2022-03-29 13:11 | EXP.PAIN.SOA ---
[facility] Pain Management SOAP Note Subjective:: Patient is a pleasant 56-year-old female who presents today for follow-up of bilateral SI injections on 03/15/2022. We are currently treating the patient for osteoarthritis bilateral knee, Pez anserine bursitis, bilateral knee pain, sacroiliitis, low back pain. Today she states she has gotten 0 relief following those injections. She states her pain today is 8 out of 10 and states the pain continues to be in her low back with radiating symptoms into her lower extremities as well as left knee pain. Patient denies any new injury or trauma. Patient denies any change location or type of pain she experiences. Patient states she previously had left knee surgery approximately 3 years ago and is continue to have numbness and tingling in her low back, hip, upper thigh since. Patient states this often affects her ability to perform activities of daily living and even feels like occasionally her knee will give out. Patient did have a genicular nerve block in her right knee that provided significant improvement of her symptoms. Patient does use Tylenol arthritis as needed as well as tizanidine 4 mg at night. Patient states she was given tramadol 50 mg twice a day from Dr. Infante's office however this does not seem to do anything for her pain symptoms. Her primary care did prescribe her [place] 5 mg for 7-day. And she stated that this medication did provide significant improvement. Patient is requesting additional medication to help with her pain symptoms. Patient was also previously prescribed gabapentin 600 mg twice a day from her primary care doctor. Patient denies any side effects from these medications. Patient states she thinks the gabapentin did help. Her Anatoly is [id number]. It has been reviewed and appropriate. Review of Systems: General: No recent weight changes, no fever, no sleep disturbances Respiratory: No cough, no shortness of air, no recurring pulmonary infections Cardiovascular/peripheral vascular: No chest pain, no palpitations, no edema, no shortness of breath Gastrointestinal: No new onset incontinence, normal bowel movements reported Genitourinary: No new onset incontinence Musculoskeletal: Low back pain, left knee pain Psychiatric: [Normal mood/affect] Neurological: [Denies weakness in extremities], [denies balance issues] Objective:: Physical Exam: General: Alert and oriented x3, no acute distress, pleasant and cooperative Lungs: Respirations even and unlabored, symmetrical chest expansion Eyes: PERRL Musculoskeletal: Flexion and extension of left knee, lumbar [spine] somewhat guarded secondary to pain, [antalgic gait noted] Neurological: Speech clear, no gross sensory deficit Assessment:: Osteoarthritis bilateral knees, Pez anserine bursitis, bilateral knee pain, sacroiliitis, low back pain Plan:: Patient continues to experience significant pain in her knees/upper thigh. Patient had limited range of motion of her lumbar spine during today's visit. I have discussed with the patient that she may benefit doing a left knee genicular nerve block. Risk and benefits were discussed with the patient. She would like to proceed forward with this plan of care. Patient is not on any blood thinners. I will also order the patient gabapentin 600 mg twice a day and [place] 5 mg daily and provide a 1 month supply of this medication. I have also discussed with the patient that she may benefit from physical therapy and we will send in a referral at today's visit for evaluation and treatment. We will schedule the patient for a left genicular nerve block. Patient has been advised of risks of oversedation with the prescribed medication. Narcan has been offered to the patient in the event of oversedation. Patient has been advised that a family member should also be educated regarding administration of Narcan. Patient has been instructed to contact the clinic with any concerns before the next appointment. Dr. Hussein feldman
== END | disposition home or self-care (01) ==
PROVIDERS: PCP Nurse Practitioner Family; Visit Provider Nurse Practitioner Family
DX: M17.0 Bilateral primary osteoarthritis of knee (principal); M46.1 Sacroiliitis, not elsewhere classified; M54.50 Low back pain, unspecified
CPT/HCPCS: 99212; G0463

== ENCOUNTER 2022-04-12 08:22 | Day surgery (SDC) | payer MEDICARE, SELFPAY ==
[2022-04-12 08:47] VITALS: BP 109/65; PULSE 69; RESP 18; TEMP 36.8; O2SAT 100; BMI 40.7
[2022-04-12 09:13] VITALS: BP 108/48; PULSE 71; RESP 18; O2SAT 98
--- NOTE | 2022-04-12 12:51 | EXP.PAIN.PRO ---
Procedure Date: 04/12/22 Time: 10:00 Anesthesiologist:: Live Romero CRNA Complications:: None Pre-procedure Diagnosis:: Osteoarthritis left knee chronic left knee pain Post-procedure Diagnosis:: Same. Indications for Procedure:: Very pleasant 56-year-old female that comes our clinic today for left genicular nerve block. Patient has had significant success with right genicular nerve block several weeks ago. Patient still reporting good relief in the right knee. Procedure Details:: Right knee genicular block Informed consent was obtained and the risk and benefits of the procedure was explained to the patient. The patient was taken to the procedure room. The left knee was prepped using ChloraPrep. I placed 22-gauge needles into the area of the right superior medial genicular nerve, right superior lateral genicular nerve and right inferior medial genicular nerve. Needle placement was confirmed in AP and lateral views with dye. We then injected bupivacaine 0.25% 3 mL's and Depo-Medrol 25 mg into each area of the right superior medial genicular nerve, right superior lateral genicular nerve and right inferior medial genicular nerve. Patient tolerated the procedure well with no complications. Plan and Disposition:: We will follow-up with her in 2 weeks. Will reevaluate symptoms at that time. Plan and Disposition:: Patient was discharged without incident.
== END 2022-04-12 09:13 | disposition home or self-care (01) ==
LOC: SC.PAINP 08:23
PROVIDERS: PCP Nurse Practitioner Family; Visit Provider Nurse Anesthetist, Certified Registered
DX: M17.12 Unilateral primary osteoarthritis, left knee (principal)
CPT/HCPCS: 64454; J1040

== ENCOUNTER → 2022-05-11 13:23 | Outpatient (POV) | payer MEDICARE, SELFPAY ==
[2022-05-11 15:20] VITALS: BP 98/69; PULSE 69; RESP 18; O2SAT 97; BMI 40.7
--- NOTE | 2022-05-11 16:20 | EXP.PAIN.SOA ---
[facility] Pain Management SOAP Note Subjective:: Patient is a pleasant 56-year-old female who presents today for follow-up of trigger point injections along her left vastus lateralis on 04/12/2022. We are currently treating the patient for osteoarthritis bilateral knees, Pez anserine bursitis, bilateral knee pain, sacroiliitis, low back pain. Today the patient states she has had at least 50 to 60% relief following these injections and feels like they are still continuing to provide additional improvement. Today she states she is experiencing more low back pain and rates her pain a 6 out of 10. Patient denies any new trauma or injury. Patient denies any change to the location or type of pain she experiences. Patient does describe this as a aching, throbbing sensation that is worse with increased activity. Patient states that she cannot tolerate prolonged standing, walking due to the pain. Patient states she does get relief when sitting or leaning over. Patient does state that she had previous injections approximately 1 year ago at [facility] as well as having her nerves burned in her back. Patient does have a history of left knee surgery approximately 3 years ago with continued numbness and tingling into her low back, hip and upper thigh since. Patient does use Tylenol arthritis as needed as well as tizanidine 4 mg at night. Patient is currently managed with [place] 5 mg daily and gabapentin 600 mg twice a day. Patient states she is experiencing increased symptoms of grogginess with the gabapentin and is requesting a decrease in this medication. Patient states these medications do help with her symptoms. Her Anatoly is [id number]. Its been reviewed and appropriate. Review of Systems: General: No recent weight changes, no fever, no sleep disturbances Respiratory: No cough, no shortness of air, no recurring pulmonary infections Cardiovascular/peripheral vascular: No chest pain, no palpitations, no edema, no shortness of breath Gastrointestinal: No new onset incontinence, normal bowel movements reported Genitourinary: No new onset incontinence Musculoskeletal: Low back pain Psychiatric: [Normal mood/affect] Neurological: [Denies weakness in extremities], [denies balance issues] Objective:: Physical Exam: General: Alert and oriented x3, no acute distress, pleasant and cooperative Lungs: Respirations even and unlabored, symmetrical chest expansion Eyes: PERRL Musculoskeletal: Flexion and extension of lumbar [spine] somewhat guarded secondary to pain, [antalgic gait noted] Neurological: Speech clear, no gross sensory deficit [place] [id number] [place] [address] XRay Report Signed Patient: Mela Carmona MR#: [id number] : 1965 Acct:[id number] Age/Sex: 55 / F ADM Date: 10/08/20 Loc: RAD Attending Dr: Angeles Hartman APRN Ordering Physician: Angeles Hartman APRN Date of Service: 10/08/20 Procedure(s): XR lumbar spine min 4V Accession Number(s): [id number] cc: Desean Andrade MD; Angeles Hartman APRN~ PROCEDURE:? XR LUMBAR SPINE MIN 4V CLINICAL INDICATION:? LBP RADIATING TO RT LOWER EXTREMITY COMPARISON:? CR XR LUMBAR SPINE 2-3V from 08/19/2019 FINDINGS: There is minimal anterolisthesis of L4 of 2 mm.? The disc spaces are well preserved.? Facet hypertrophic/sclerotic changes are present at L3-L4 L5 and S1.? Mild generalized vascular calcification. Normal alignment.? No acute fracture or dislocation.? No lytic or blastic change Other findings:None. IMPRESSION: Facet arthritic changes of the lower lumbar spine Dictated by: ? Desean Andrade MD? 10/08/2020 09:47 ?Desean Andrade MD in [place] 10/08/2020 09:47 Assessment:: Low back pain, osteoarthritis bilateral knees, Pez anserine bursitis, bilateral knee pain, sacroiliitis, low back pain, degenerative disc disease lumbar spine with lumbar radiculopathy symptoms, neurogenic cl
== END | disposition home or self-care (01) ==
PROVIDERS: PCP Nurse Practitioner Family; Visit Provider Nurse Practitioner Family
DX: M51.16 Intervertebral disc disorders with radiculopathy, lumbar region (principal); M48.062 Spinal stenosis, lumbar region with neurogenic claudication; M47.26 Other spondylosis with radiculopathy, lumbar region; M46.1 Sacroiliitis, not elsewhere classified; M17.0 Bilateral primary osteoarthritis of knee
CPT/HCPCS: 99212; G0463

== ENCOUNTER → 2022-05-11 14:28 | Outpatient (CLI) | payer MEDICARE, SELFPAY ==
[2022-05-11 16:56] LABS: Amphetamine/Metha Screen,Urine Negative ng/ml (<1000); Barbiturates Screen,Urine Negative ng/ml (<200)
[2022-05-11 16:57] LABS: Benzodiazepines Screen,Urine Negative ng/ml (<200)
[2022-05-11 16:59] LABS: Cannabinoid Screen,Urine Negative ng/ml (<50)
[2022-05-11 17:00] LABS: Cocaine Screen,Urine Negative ng/ml (<300); Methadone Screen,Urine Negative ng/ml (<300)
[2022-05-11 17:02] LABS: Phencyclidine Screen,Urine Negative ng/ml (<25)
[2022-05-11 17:03] LABS: Opiate Screen,Urine Negative ng/ml (<300)
[2022-05-16 08:10] LABS: Opiates Negative (Cutoff=100)
== END ==
LOC: LAB 14:29
PROVIDERS: PCP Nurse Practitioner Family; Visit Provider Nurse Practitioner Family
DX: Z79.891 Long term (current) use of opiate analgesic (principal)
CPT/HCPCS: 80305; 80361; 80365; 99212; G0463; G0480

== ENCOUNTER 2022-05-16 11:00 | Outpatient (RCR) | payer MEDICARE, SELFPAY ==
--- NOTE | 2022-05-05 17:05 | HMH.PTOPEV ---
PT Outpatient Evaluation Rehab PT Outpatient Evaluation Start: 05/05/22 15:56 Freq: Status: Active Protocol: Document 05/05/22 15:56 MURRAYLORETA (Rec: 05/05/22 17:05 YAMILETH [id number]) E-signed By Shabnam Ring, PT Outpatient Therapy Subjective History Subjective History Pt is a 56 y/o female that reports insidious onset of right ankle pain 6 months ago. Pt had an MRI of the R ankle performed at [facility] on 02/23/22 showing small partial tears of the posterior tibialis and peroneal longus & brevis, distal achilles tendonitis, retrocalcaneal bursitis. Pt reports she tried wearing a boot for a couple weeks but it rubbed her heel and she also tried an aircast for 3 weeks which helped some. Pt reports she has had 2 sets of injections of both medial & lateral ankle and the heel with most recent ~3 weeks ago which decreases pain intensity but does not relieve pain. Pt reports she has discussed surgery with Dr. Infante but is unable to at this time due to an expected long recovery and wishes to attempt conservative care. Pt reports she has intermittent sharp pain that radiates along the posterior ankle/heel with prolonged activity, improves with rest. Pt denies paresthesia but states her foot is hypersensitive to light touch and cold sensation . Pt reports she takes Loratab as needed ~1-2x/week and also takes a muscle relaxer for foot spasms that keep her up at night. Pt reports she has been doing stretches and toe raises that Dr. Infante gave her but the stretches cause posterior heel pain. Pt also reports swelling around the
== END 2022-05-16 11:05 | disposition home or self-care (01) ==
LOC: PT 11:00
PROVIDERS: PCP Nurse Practitioner Family; Visit Provider Podiatrist
DX: M79.671 Pain in right foot (principal); M25.371 Other instability, right ankle
CPT/HCPCS: 97035; 97110; 97163

== ENCOUNTER → 2022-05-30 12:46 | Outpatient (CLI) | payer MEDICARE, SELFPAY | END | disposition home or self-care (01) | PROVIDERS: PCP Nurse Practitioner Family; Visit Provider Nurse Practitioner Family | DX: G47.30 Sleep apnea, unspecified (principal); R40.0 Somnolence; R06.83 Snoring | CPT/HCPCS: G0399 ==

== ENCOUNTER → 2022-06-27 09:17 | Outpatient (POV) | payer MEDICARE, SELFPAY ==
[2022-06-27 09:21] VITALS: BP 133/77; PULSE 62; RESP 18; O2SAT 98; BMI 40.7
--- NOTE | 2022-06-27 09:25 | EXP.PAIN.SOA ---
[facility] Pain Management SOAP Note Subjective:: Patient is a pleasant 56-year-old female who presents today for follow-up. We are currently treating the patient for osteoarthritis bilateral knees, Pez anserine bursitis, bilateral knee pain, sacroiliitis, low back pain. Today she rates her pain a 9 out of 10. Patient denies any new trauma or injury. Patient denies any change location or type of pain she experiences. Patient does state that she is having increased pain at her right knee. Patient does describe this as a aching, throbbing sensation that is worse with increased activity. Patient has had multiple injections in the past including right knee bursa injections, trigger point injections and genicular blocks with genicular RFA. Patient did get significant relief with the bursa and trigger point injections. Patient does state her pain in her right knee often causes trouble even walking due to the pain. At our last visit the patient was scheduled to have a lumbar epidural steroid injection however she was worried when her vessel manager went over concerns for coming off her blood thinners. Patient states that the vessel manager did say it was low risk however due to the overall concern she did not complete this injection. Patient states she continues to have low back pain however at this time it is manageable. Patient is currently prescribed [place] 5 mg daily and gabapentin 300 mg 3 times a day. Patient denies any side effects from this medication. She is also prescribed tizanidine 4 mg at night however she did not notice significant improvement with this so she has stopped taking it. Her Anatoly is [id number]. Its been reviewed and appropriate. Review of Systems: General: No recent weight changes, no fever, no sleep disturbances Respiratory: No cough, no shortness of air, no recurring pulmonary infections Cardiovascular/peripheral vascular: No chest pain, no palpitations, no edema, no shortness of breath Gastrointestinal: No new onset incontinence, normal bowel movements reported Genitourinary: No new onset incontinence Musculoskeletal: Low back pain Psychiatric: [Normal mood/affect] Neurological: [Denies weakness in extremities], [denies balance issues] Objective:: Physical Exam: General: Alert and oriented x3, no acute distress, pleasant and cooperative Lungs: Respirations even and unlabored, symmetrical chest expansion Eyes: PERRL Musculoskeletal: Flexion and extension of lumbar [spine] somewhat guarded secondary to pain, [antalgic gait noted] point tenderness along right fibularis longus, tibialis anterior and sartorius muscles Neurological: Speech clear, no gross sensory deficit Assessment:: osteoarthritis bilateral knees, Pez anserine bursitis, bilateral knee pain, sacroiliitis, low back pain, degenerative disc disease of lumbar spine with lumbar radiculopathy symptoms, lumbar facet arthropathy, myofascial pain Plan:: Patient is experiencing significant pain around the lateral/posterior and medial aspects of her right knee. Patient did have limited range of motion along with point tenderness at her right fibularis longus, right tibialis anterior and right sartorius muscles during today's exam. I have discussed with the patient that she may benefit from trigger point injections at these areas. Risk and benefits were discussed with the patient. She would like to proceed forward with this plan of care. I will also change her tizanidine to methocarbamol 750 mg twice daily and provide a 1 month supply of this medication. We will refill her [place] 5 mg daily and gabapentin 300 mg 3 times a day with a 1 month supply of these medications. Patient will be scheduled for trigger point injections of her right fibularis longus, right tibialis anterior and right sartorius muscles. Patient has been advised of risks of oversedation with the prescribed medication. Narcan has been offered to the patient in the event of oversedation. Patient has been advised that a famil
== END | disposition home or self-care (01) ==
PROVIDERS: PCP Nurse Practitioner Family; Visit Provider Nurse Practitioner Family
DX: M51.16 Intervertebral disc disorders with radiculopathy, lumbar region (principal); M47.26 Other spondylosis with radiculopathy, lumbar region; M79.10 Myalgia, unspecified site; M17.0 Bilateral primary osteoarthritis of knee; M25.561 Pain in right knee; M46.1 Sacroiliitis, not elsewhere classified; M25.562 Pain in left knee
CPT/HCPCS: 99212; G0463

== ENCOUNTER 2022-06-28 11:15 | Day surgery (SDC) | payer MEDICARE, SELFPAY ==
[2022-06-28 11:30] VITALS: BP 134/77; PULSE 63; RESP 18; TEMP 36.6; O2SAT 100; BMI 40.7
[2022-06-28 11:41] VITALS: BP 152/63; PULSE 62; RESP 18; O2SAT 97
[2022-06-28 11:42] VITALS: BP 152/63; PULSE 62; RESP 18; O2SAT 98
[2022-06-28 11:47] VITALS: BP 142/75; PULSE 63; RESP 18; O2SAT 100
--- NOTE | 2022-06-28 12:26 | P.PCN_ITS ---
Procedure Date: 06/28/22 Time: 11:00 Anesthesiologist:: Live Romero CRNA Complications:: None Pre-procedure Diagnosis:: Myofascial pain right lateral knee Post-procedure Diagnosis:: Same. Indications for Procedure:: Patient is a pleasant 56-year-old female comes our clinic today with right lateral knee pain. Patient is status post genicular nerve blocks. Genicular nerve radiofrequency ablations. Patient reports she does not have knee joint pain. She points to a specific area distal to the knee joint laterally. Procedure Details:: Details of the procedure were explained to the patient. The patient taken procedure room placed in the sitting position. The area over the right lateral knee was cleaned using chlorhexidine as a cleansing solution. Using a 25-gauge inch and a half needle trigger point injections were administered in 2 separate areas over the right distal IT band. 4 cc of 0.25% Marcaine +10 mg of Depo- Medrol was injected at each area. Patient tolerated procedure without difficulty. No complications. Plan and Disposition:: Patient was discharged without incident.
== END 2022-06-28 11:47 | disposition home or self-care (01) ==
PROVIDERS: PCP Nurse Practitioner Family; Visit Provider Nurse Anesthetist, Certified Registered
DX: M17.0 Bilateral primary osteoarthritis of knee (principal); M25.561 Pain in right knee; M79.18 Myalgia, other site
CPT/HCPCS: 20552; J1040

== ENCOUNTER → 2022-07-11 16:23 | Outpatient (CLI) | payer MEDICARE, SELFPAY ==
--- NOTE | 2022-07-11 16:27 | MM_ITS ---
PROCEDURE INFORMATION: Exam: MG Bilateral Screening 3D Mammography Exam date and time: 07/11/2022 4:23 PM Age: 56 years old Clinical indication: Screening examination; Additional info: Screen . Family history of breast carcinoma. TECHNIQUE: Imaging protocol: Bilateral Screening tomosynthesis and 2D mammography including computer-aided detection (CAD) when performed. COMPARISON: 1. MG MM DIG SCREENING MAMM BI W/CAD 05/03/2021 3:55 PM 2. MG MM DIG SCREENING MAMM BI W/CAD 02/26/2020 10:48 AM 3. MG MM DIG SCREENING MAMM BI W/CAD 12/12/2018 3:43 PM FINDINGS: MAMMOGRAPHY: Breast density: There are scattered areas of fibroglandular density. Mass: No suspicious masses. Architectural distortion: No suspicious distortion. Calcifications: No suspicious calcifications. Asymmetric density: None. Skin thickening: None. Axillary adenopathy: None. IMPRESSION: No mammographic evidence of malignancy. Annual screening is recommended unless otherwise clinically indicated. ASSESSMENT: BI-RADS Category 1: Negative
== END ==
PROVIDERS: PCP Nurse Practitioner Family; Visit Provider Nurse Practitioner Family
DX: Z12.31 Encounter for screening mammogram for malignant neoplasm of breast (principal)
CPT/HCPCS: 77063; 77067

== ENCOUNTER → 2022-07-18 08:19 | Outpatient (POV) | payer MEDICARE, SELFPAY ==
[2022-07-18 09:00] VITALS: BP 136/77; PULSE 61; RESP 20; BMI 40.7
--- NOTE | 2022-07-18 09:20 | EXP.PAIN.SOA ---
[facility] Pain Management SOAP Note Subjective:: Patient is a pleasant 56-year-old female who presents today for follow-up of trigger point injections of her right distal IT band on 06/28/2022. We are currently treating the patient for osteoarthritis bilateral knees, bilateral knee pain, Pez anserine bursitis, sacroiliitis, low back pain, lumbar radiculopathy symptoms. Today she rates her pain an 8 out of 10. Patient states that the prior injection did help some however not as well as previous trigger points have done. Patient states only about 30 to 40% relief and states that before she got relief she had 4 to 5 days of extensive soreness along the right outer side of her knee and hamstring area. Patient denies any new trauma or injury. Patient denies any change to the location or type of pain she experiences. Patient does states she continues to have pain around her low back that radiates into around her lower buttocks bilaterally and into her legs. Patient does describe this as a aching, throbbing sensation that is worse with increased activity. Patient does have difficulty performing activities of daily living such as cooking and cleaning and frequently has to sit down and take breaks due to her pain. Patient does have difficulty walking due to her pain. Patient is currently managed with [place] 5 mg daily and gabapentin 300 mg 3 times a day along with methocarbamol 750 mg. Patient denies any side effects from these medications. She does state that she has not been having to take the gabapentin since she is added the muscle relaxer. She does state that occasionally in times of worsening pain she has taking 2 of the methocarbamol at a time. Her Anatoly is [id number]. Its been reviewed and appropriate. Review of Systems: General: No recent weight changes, no fever, no sleep disturbances Respiratory: No cough, no shortness of air, no recurring pulmonary infections Cardiovascular/peripheral vascular: No chest pain, no palpitations, no edema, no shortness of breath Gastrointestinal: No new onset incontinence, normal bowel movements reported Genitourinary: No new onset incontinence Musculoskeletal: Low back pain, buttocks pain, leg pain Psychiatric: [Normal mood/affect] Neurological: [Denies weakness in extremities], [denies balance issues] Objective:: Physical Exam: General: Alert and oriented x3, no acute distress, pleasant and cooperative Lungs: Respirations even and unlabored, symmetrical chest expansion Eyes: PERRL Musculoskeletal: Flexion and extension of lumbar [spine] somewhat guarded secondary to pain, [antalgic gait noted] extreme point tenderness along bilateral piriformis muscles Neurological: Speech clear, no gross sensory deficit Assessment:: Osteoarthritis bilateral knees, bilateral knee pain, Pez anserine bursitis, sacroiliitis, low back pain,, lumbar radiculopathy symptoms, bilateral piriformis syndrome Plan:: Patient continues to experience significant pain in her bilateral buttocks with radiating symptoms. I have discussed with the patient that she may benefit from bilateral piriformis muscle injections. Risk and benefits were discussed with the patient and she would like to proceed forward with this plan of care. I will also change her methocarbamol to 1000 mg 3 times daily and provide a 1 month supply of this medication along with her [place] 5 mg daily. At this time she does not need any additional gabapentin refills and will contact our office if this changes. Patient will be scheduled for a bilateral piriformis injection. Patient has been advised of risks of oversedation with the prescribed medication. Narcan has been offered to the patient in the event of oversedation. Patient has been advised that a family member should also be educated regarding administration of Narcan. Patient has been instructed to contact the clinic with any concerns before the next appointment. Dr. Savage has reviewed this note and agrees with this plan of care. T
== END | disposition home or self-care (01) ==
PROVIDERS: PCP Nurse Practitioner Family; Visit Provider Nurse Practitioner Family
DX: M17.0 Bilateral primary osteoarthritis of knee (principal); M54.16 Radiculopathy, lumbar region; M54.50 Low back pain, unspecified; M25.561 Pain in right knee; M25.562 Pain in left knee; M46.1 Sacroiliitis, not elsewhere classified
CPT/HCPCS: 99212; G0463

== ENCOUNTER 2022-07-26 07:46 | Day surgery (SDC) | payer MEDICARE, SELFPAY ==
[2022-07-26 08:07] VITALS: BP 117/63; PULSE 65; RESP 18; TEMP 36.8; O2SAT 100; BMI 40.7
[2022-07-26 08:22] VITALS: BP 134/91; PULSE 61; RESP 18; O2SAT 98
[2022-07-26 08:23] VITALS: BP 134/91; PULSE 61; RESP 18; O2SAT 98
[2022-07-26 08:31] VITALS: BP 116/59; PULSE 57; RESP 18; O2SAT 100
--- NOTE | 2022-07-26 08:40 | P.PCN_ITS ---
Procedure Date: 07/26/22 Time: 08:15 Anesthesiologist:: Live Romero CRNA Complications:: None Pre-procedure Diagnosis:: Bilateral piriformis syndrome Post-procedure Diagnosis:: Same Indications for Procedure:: Patient is a very pleasant 56-year-old female who is gone through a series of t form presser point injections in the low back as well as bilateral sacroiliac joint injections bilateral lumbar paraspinous muscle injections. She has extreme point tenderness over the inferior sacroiliac joint areas. We suspect piriformis syndrome. We will inject both areas today. Procedure Details:: Details of the procedure explained the patient. The patient taken to procedure room placed in the prone position. The area of the posterior hip was cleaned using chlorhexidine as a cleansing solution. Using fluoroscopy guidance the left piriformis muscle was accessed. Needle position was confirmed with contrast dye and a positive lateral spread. 4 cc of 1% lidocaine +20 mg of Depo-Medrol was injected. Patient tolerated procedure without difficulty. There are no complications. The same procedure was carried out over the right piriformis muscle. Plan and Disposition:: Patient was discharged without incident.
== END 2022-07-26 08:31 | disposition home or self-care (01) ==
PROVIDERS: PCP Nurse Practitioner Family; Visit Provider Nurse Anesthetist, Certified Registered
DX: G57.03 Lesion of sciatic nerve, bilateral lower limbs (principal)
CPT/HCPCS: 20552; J1040; Q9966

== ENCOUNTER → 2022-09-14 20:04 | Outpatient (CLI) | payer MEDICARE, SELFPAY | LOC: SL 20:04 | PROVIDERS: PCP Nurse Practitioner Family; Visit Provider Nurse Practitioner Family | DX: G47.33 Obstructive sleep apnea (adult) (pediatric) (principal); I10 Essential (primary) hypertension; R40.0 Somnolence; R09.02 Hypoxemia; G47.61 Periodic limb movement disorder; E66.9 Obesity, unspecified; Z68.41 Body mass index [BMI] 40.0-44.9, adult | CPT/HCPCS: 95810 ==

== ENCOUNTER → 2022-09-26 07:51 | Outpatient (POV) | payer MEDICARE, SELFPAY ==
--- NOTE | 2022-09-26 07:57 | EXP.PAIN.SOA ---
[facility] Pain Management SOAP Note Subjective:: Patient is a pleasant 56-year-old female who presents today for follow-up.? We are currently treating the patient for osteoarthritis bilateral knees, bilateral knee pain, Pez anserine bursitis, sacroiliitis, low back pain, lumbar radiculopathy symptoms.? Today she rates her pain an 10 out of 10. She states that she is experiencing worsening pain in her right shoulder and right knee unrelated to any specific injury. She states her shoulder pain has seemed to gotten somewhat better over the last few days however her knee continues to be sore and tender to touch. She does state that she feels like her fibromyalgia continues to be a daily issue and states that she has daily aches and pains however she states her leg symptoms are worse overall. She states that getting up in the mornings that she has significant difficulty with moving around due to her worsening pain and stiffness. Patient does describe this as a aching, throbbing sensation that is worse with increased activity.? Patient does have difficulty performing activities of daily living such as cooking and cleaning and frequently has to sit down and take breaks due to her pain.? Patient does have difficulty walking due to her pain.? Patient is currently managed with [place] 5 mg daily and gabapentin 300 mg 3 times a day along with methocarbamol 750 mg. She states that she has noticed additional bruising after taking the muscle relaxer with her blood thinner. She is requesting to go back to tizanidine for this reason. Her Anatoly is [id number].? Its been reviewed and appropriate. Review of Systems: General: No recent weight changes, no fever, no sleep disturbances Respiratory: No cough, no shortness of air, no recurring pulmonary infections Cardiovascular/peripheral vascular: No chest pain, no palpitations,? no edema, no shortness of breath Gastrointestinal: No new onset incontinence, normal bowel movements reported Genitourinary: No new onset incontinence Musculoskeletal: Right shoulder pain, right knee pain Psychiatric: [Normal mood/affect] Neurological: [Denies weakness in extremities], [denies balance issues] Objective:: Physical Exam: General: Alert and oriented x3, no acute distress, pleasant and cooperative Lungs: Respirations even and unlabored, symmetrical chest expansion Eyes: PERRL Musculoskeletal: Flexion and extension of right knee somewhat guarded secondary to pain, [antalgic gait noted] point tenderness noted at Pez anserine bursa Neurological: Speech clear, no gross sensory deficit Assessment:: Osteoarthritis bilateral knees, bilateral knee pain, Pez anserine bursitis, sacroiliitis, low back pain with lumbar radiculopathy symptoms, right shoulder pain Plan:: Patient is experiencing significant pain at multiple areas including her right knee with limited range of motion. Patient had point tenderness at her right Pez anserine bursa. I have discussed with the patient that she may benefit from a bursa injection at this location. Risk and benefits were discussed with the patient and she would like to proceed forward with this plan of care. I will change her methocarbamol to tizanidine 4 mg 3 times daily and provide a 1 month supply of this medication. I will also change her hydrocodone 5 mg daily to twice daily and provide a 1 month supply of this medication. I have discussed with the patient that she may benefit from spinal cord stimulator trial. Educational handouts were given today and she would like to proceed forward in order the psych eval. If she is deemed an appropriate candidate for the device we will proceed forward with the SCS trial in the future. Patient will be scheduled for a right Pez anserine bursa injection. Patient has been advised of risks of oversedation with the prescribed medication. Narcan has been offered to the patient in the event of oversedation. Patient has been advised that a family member should also be educated regarding
[2022-09-26 07:59] VITALS: BP 126/72; PULSE 63; RESP 18; O2SAT 97; BMI 41.1
[2022-09-26 09:55] LABS: Amphetamine/Metha Screen,Urine Negative ng/ml (<1000); Barbiturates Screen,Urine Negative ng/ml (<200)
[2022-09-26 09:56] LABS: Benzodiazepines Screen,Urine Negative ng/ml (<200); Cannabinoid Screen,Urine Negative ng/ml (<50)
[2022-09-26 09:57] LABS: Cocaine Screen,Urine Negative ng/ml (<300)
[2022-09-26 09:58] LABS: Methadone Screen,Urine Negative ng/ml (<300)
[2022-09-26 09:59] LABS: Phencyclidine Screen,Urine Negative ng/ml (<25)
[2022-09-26 10:00] LABS: Opiate Screen,Urine Positive ng/ml (<300)
[2022-10-01 14:51] LABS: Codeine Negative (Cutoff=100); Hydrocodone Positive (.); Hydromorphone Positive (.); Morphine Negative (Cutoff=100); Opiates Positive (.)
== END | disposition home or self-care (01) ==
PROVIDERS: Visit Provider Nurse Practitioner Family
DX: M54.16 Radiculopathy, lumbar region (principal); Z79.891 Long term (current) use of opiate analgesic; M54.50 Low back pain, unspecified; M46.1 Sacroiliitis, not elsewhere classified; M17.0 Bilateral primary osteoarthritis of knee; M25.561 Pain in right knee; M25.562 Pain in left knee; M25.511 Pain in right shoulder
CPT/HCPCS: 80305; 80361; 80365; 99212; G0463; G0480

== ENCOUNTER 2022-10-04 09:55 | Day surgery (SDC) | payer MEDICARE, SELFPAY ==
[2022-10-04 10:12] VITALS: BP 131/70; PULSE 63; RESP 18; TEMP 36.6; O2SAT 99; BMI 40.7
[2022-10-04 10:23] VITALS: BP 136/67; PULSE 61; RESP 18; O2SAT 99
--- NOTE | 2022-10-04 10:39 | EXP.PAIN.PRO ---
Procedure Date: 10/04/22 Time: 10:20 Anesthesiologist:: Live Romero CRNA Complications:: None Pre-procedure Diagnosis:: Chronic right knee pain. Osteoarthritis right knee. Post-procedure Diagnosis:: Same. Indications for Procedure:: Patient is a pleasant 57-year-old female comes our clinic today for right knee genicular nerve block. Patient has had right knee genicular nerve block and subsequent radiofrequency ablation of the same nerves in the past. Patient states significant improvement from both the block and radiofrequency ablation procedure of the right knee. However, her pain is returned significantly just below the knee joint anteriorly on the tibia. I will give her inferior genicular nerve block today. Procedure Details:: Right knee genicular block Informed consent was obtained and the risk and benefits of the procedure was explained to the patient. The patient was taken to the procedure room. The right knee was prepped using ChloraPrep. I placed 25-gauge needles into the area of the right inferior medial genicular nerve. Needle placement was confirmed in AP and lateral views with dye. 10 cc of solution containing 0.25% Marcaine +1% lidocaine and 40 mg of Depo-Medrol was injected. Patient tolerated the procedure well with no complications. Plan and Disposition:: Patient was discharged without incident. Patient reports no pain in the right knee upon discharge.
== END 2022-10-04 10:23 | disposition home or self-care (01) ==
PROVIDERS: PCP Nurse Practitioner Family; Visit Provider Nurse Anesthetist, Certified Registered
DX: M17.11 Unilateral primary osteoarthritis, right knee (principal); M25.561 Pain in right knee; G89.29 Other chronic pain
CPT/HCPCS: 64454; J1040

== ENCOUNTER 2022-10-15 19:01 | Emergency (ER) | payer MEDICARE, SELFPAY ==
[2022-10-15 19:02] VITALS: BP 98/53; PULSE 70; RESP 16; TEMP 37.7; O2SAT 95; BMI 40.7
[2022-10-15 19:07] VITALS: BP 98/53; PULSE 90; O2SAT 98
[2022-10-15 19:27] LABS: Coronavirus 19, PCR Not Detected (NotDetected); Influenza A, PCR Not Detected (NotDetected); Influenza B, PCR Not Detected (NotDetected)
[2022-10-15 19:31] VITALS: BP 103/49; PULSE 83; O2SAT 98
[2022-10-15 19:34] LABS: Alanine Aminotransferase 22 U/L (12-78); Albumin Level 4.1 g/dl (3.5-5.0); Albumin/Globulin Ratio 1.5 (1.1-1.8); Alkaline Phosphatase 62 U/L (38-126); Anion Gap 12.7 mEq/L (5-15); Aspartate Amino Transferase 26 U/L (14-36); Bilirubin,Total 0.4 mg/dl (0.2-1.3); Blood Urea Nitrogen 21 mg/dl (7-17); Calcium 8.6 mg/dl (8.4-10.2); Carbon Dioxide 26 mmol/L (22.0-30.0); Chloride 105 mmol/L (98-107); Creatinine Clearance Estimated 148 mL/min (50-200); Estimated Glomerular Filt Rate 74 ml/min (>60); GFR (African American) 90 ML/MIN (>60); Globulin 2.8 g/dL (1.3-3.2); Glucose 103 mg/dl (74-100); Potassium 3.7 mmoL/L (3.5-5.1); Sodium 140 mmol/L (136-145); Total Protein,Serum 6.9 g/dl (6.3-8.2)
[2022-10-15 19:36] LABS: Basophils % 0.3 % (0.1-2.0); Eosinophils # 0.1 K/mm3 (0.0-0.4); Eosinophils % 0.4 % (0.1-12.0); Hematocrit 42.4 % (37.0-47.0); Hemoglobin 13.7 g/dL (12.2-16.2); Lymphocytes # 1.8 K/mm3 (0.7-4.5); Lymphocytes % 12.5 % (10-50); Mean Corpuscular HGB Conc 32.3 g/dL (31.8-35.4); Mean Corpuscular Hemoglobin 29.6 pg (27.0-31.2); Mean Corpuscular Volume 91.4 fl (81-99); Mean Platelet Volume 9.4 fl (7.4-10.4); Monocytes # 0.4 K/mm3 (0.1-1.0); Monocytes % 2.8 % (1.7-9.3); Neutrophils # 11.9 K/mm3 (1.8-7.8); Neutrophils % 83.9 % (37.0-80.0); Platelet Count 212 K/mm3 (142-424); Red Blood Count 4.64 M/mm3 (4.20-5.40); Red Cell Distribution Width 13.2 % (11.5-17.5); White Blood Count 14.2 K/mm3 (4.8-10.8)
--- NOTE | 2022-10-15 20:10 | PC.NURSE ---
rounded on pt help pt to ambulate to bedside come and back to bed and gave warm blanket, at bedside
[2022-10-15 20:13] LABS: Microscopic, Urine URINE MICROSCOPIC (MICROSCOPIC)
[2022-10-15 20:16] LABS: Appearance,Urine CLEAR (Clear); Bilirubin,Urine Negative (Negative); Blood, Urine Negative (Negative); Color,Urine YELLOW (Yellow); Glucose,Urine (UA) Negative (Negative); Ketones,Urine Negative (Negative); Leukocyte Esterase,Urine Negative (Negative); Nitrate,Urine Negative (Negative); PH,Urine 5.5 (5.0-8.5); Protein,Urine Negative (Negative); Urobilinogen,Urine 0.2 EU/dl (0.2)
--- NOTE | 2022-10-15 20:21 | HMH.EDGENADL ---
Discharge Plan Disposition Patient Disposition: Home, Self-Care Condition: Good Chief Complaint: PAIN Prescriptions Prescriptions: No Action sertraline 50 mg tablet 50 mg PO DAILY ropinirole 0.25 mg tablet 0.25 mg PO HS esomeprazole magnesium 40 mg capsule,delayed release(DR/EC) 40 mg PO DAILY naproxen 250 mg tablet 250 mg PO BID PRN (Reason: pain) Qty: 60 3RF tramadol 50 mg tablet 50 mg PO BID PRN (Reason: pain) 30 Days Qty: 60 0RF diclofenac sodium 75 mg tablet,delayed release (DR/EC) 75 mg PO DAILY aspirin 81 mg tablet,delayed release (DR/EC) 81 mg PO DAILY Qty: 90 3RF Repatha SureClick 140 mg/mL pen injector 140 mg SQ Q2W Qty: 2 11RF prasugrel [Effient] 10 mg tablet 10 mg PO DAILY gabapentin 300 mg capsule 300 mg PO TID Qty: 90 0RF tizanidine [Zanaflex] 4 mg tablet 4 mg PO TID Qty: 90 0RF hydrocodone-acetaminophen 5-325 mg tablet 1 tab PO BID Qty: 60 0RF budesonide-formoterol 10.2 GM HFA aerosol inhaler 2 puffs IH BID rosuvastatin 5 MG tablet 5 mg PO DAILY albuterol sulfate 8.5 GM HFA aerosol inhaler 1 puff IH Q4HP PRN (Reason: Shortness Of Breath) carvedilol [Coreg] 3.125 mg tablet 3.125 mg PO BID Rx Instructions: must administer with a meal/food methocarbamol 750 mg tablet 750 mg PO BID Qty: 60 0RF Referrals Follow up/Referrals: Angeles Hartman APRN [Primary Care Provider] - See instructions Clinical Impressions Clinical Impression: Acute viral syndrome, Chronic leg pain Discharge ED Provider: Eriberto Lizarraga General Adult HPI General Chief complaint: PAIN Stated complaint: leg pain, chllls, body aches Time Seen by Provider: 10/15/22 19:45 Mode of Arrival: Ambulatory Source of Information: Patient Limitations: No Limitations Description of Symptoms (Recalled from ER Triage Doc. by RN): chronic pain that starts in the right ankle and goes over the top of the foot and up the side of the right leg. p tstates that she had a pain shot in her right knee last week but that she is having severe pain in that leg. the pt also reports chils since this am. History of Present Illness HPI narrative: 57yo F presents to the ER secondary to chronic right lower extremity pain as well as fever/chills, generalized body aches. Reports her fever/chills and body aches began this morning when she woke up. No known sick contact. Denies nausea/vomiting/diarrhea. Reports taking home medication without improvement in her symptoms. Related Data Home Medications Medication Instructions Recorded Confirmed budesonide-formoterol HFA 160 2 puffs inhalation BID Asthma 08/18/20 10/04/22 mcg-4.5 mcg/actuation aerosol inhaler rosuvastatin 5 mg tablet 5 mg PO DAILY High cholesterol 08/27/21 10/04/22 albuterol sulfate 90 mcg/actuation 1 puff inhalation Q4HP PRN 10/09/21 10/04/22 aerosol inhaler Shortness Of Breath esomeprazole magnesium 40 mg 40 mg PO DAILY SUPPLIMENT 12/07/21 10/04/22 capsule,delayed release ropinirole 0.25 mg tablet 0.25 mg PO HS RESTLESS LEGS 12/07/21 10/04/22 sertraline 50 mg tablet 50 mg PO DAILY MOOD 12/07/21 10/04/22 prasugrel 10 mg tablet (Effient) 10 mg PO DAILY Blood thinner 03/10/22 10/04/22 diclofenac sodium 75 mg 75 mg PO DAILY . 06/27/22 10/04/22 tablet,delayed release carvedilol 3.125 mg tablet (Coreg) 3.125 mg PO BID . 07/26/22 10/04/22 Previous Rx's Medication Instructions Recorded aspirin 81 mg tablet,delayed 81 mg PO DAILY . #90 tabs 11/16/21 release naproxen 250 mg tablet 250 mg PO BID PRN pain #60 tabs 01/24/22 tramadol 50 mg tablet 50 mg PO BID PRN pain 30 days #60 02/28/22 tabs gabapentin 300 mg capsule 300 mg PO TID Pain #90 caps 06/27/22 evolocumab 140 mg/mL subcutaneous 140 mg SQ Q2W . #2 mL 07/28/22 pen injector (Oumar Gill) methocarbamol 750 mg tablet 750 mg PO BID . #60 tabs 08/17/22 hydrocodone 5 mg-acetaminophen 325 1 tab PO BID Pain #60 tabs
[2022-10-15 20:27] VITALS: BP 106/53; PULSE 86; RESP 19; TEMP 36.9; O2SAT 96
[2022-10-15 20:46] LABS: Bacteria,Urine Trace /lpf; WBC,Urine Occasional #/hpf (0-3)
== END 2022-10-15 20:46 | disposition home or self-care (01) ==
PROVIDERS: Emergency Medicine; Emergency Provider Family Medicine; PCP Nurse Practitioner Family
DX: R50.9 Fever, unspecified (principal); B34.9 Viral infection, unspecified; M25.571 Pain in right ankle and joints of right foot; G89.29 Other chronic pain; F41.9 Anxiety disorder, unspecified; I11.0 Hypertensive heart disease with heart failure; I50.9 Heart failure, unspecified; I25.10 Atherosclerotic heart disease of native coronary artery without angina pectoris; F32.A Depression, unspecified; K21.9 Gastro-esophageal reflux disease without esophagitis; E78.5 Hyperlipidemia, unspecified; I25.2 Old myocardial infarction; Z87.891 Personal history of nicotine dependence
CPT/HCPCS: 80053; 81001; 85025; 87636; 96374; 96375; 99284; 99285; C9803; U0003; U0005

== ENCOUNTER → 2022-10-31 10:40 | Outpatient (POV) | payer MEDICARE, SELFPAY ==
--- NOTE | 2022-10-31 10:54 | EXP.PAIN.SOA ---
[facility] Pain Management SOAP Note Subjective:: Patient is a pleasant 57-year-old female who presents today for follow-up of right genicular nerve block on 10/04/2022. We are currently treating the patient for low back pain with lumbar radiculopathy symptoms, sacroiliitis, Pez anserine bursitis, bilateral knee pain/osteoarthritis. Today she does rate her pain an 8 out of 10. Patient does state that she has had approximately 50% improvement from her genicular block and it is still providing good relief. Today she does state her pain is more into her hips with radiating symptoms into her groin. Patient does describe this as an achy sensation that is worse with increased activity. She does state it interferes with her ability to perform activities of daily living such as cooking and cleaning and that frequently even ambulation is affected. Patient does states she has to be very cautious when she goes to sit down due to her worsening pain symptoms. Patient was previously on gabapentin 300 mg 3 times a day however she states she is no longer doing this medication due to increased grogginess. She is currently managed with [place] 5 mg twice a day and tizanidine 4 mg 3 times daily. Patient denies any side effects from these medications. She does state that she has been recently to her primary care doctor who did run an arthritis panel and did have positive RA results. She states she is currently waiting for a referral to a specialist regarding this. Her Anatoly is [id number]. Its been reviewed and appropriate. Review of Systems: General: No recent weight changes, no fever, no sleep disturbances Respiratory: No cough, no shortness of air, no recurring pulmonary infections Cardiovascular/peripheral vascular: No chest pain, no palpitations, no edema, no shortness of breath Gastrointestinal: No new onset incontinence, normal bowel movements reported Genitourinary: No new onset incontinence Musculoskeletal: Low back pain, bilateral groin pain Psychiatric: [Normal mood/affect] Neurological: [Denies weakness in extremities], [denies balance issues] Objective:: Physical Exam: General: Alert and oriented x3, no acute distress, pleasant and cooperative Lungs: Respirations even and unlabored, symmetrical chest expansion Eyes: PERRL Musculoskeletal: Flexion and extension of lumbar [spine] somewhat guarded secondary to pain, [antalgic gait noted] Neurological: Speech clear, no gross sensory deficit Assessment:: Low back pain with lumbar radiculopathy symptoms, sacroiliitis, Pez anserine bursitis, bilateral knee pain/osteoarthritis Plan:: Patient is experiencing significant pain in her low back and groin with limited range of motion of her lumbar spine. I have discussed with the patient that she may benefit from bilateral intra-articular hip injections. Risk and benefits were discussed with the patient and she would like to proceed forward with this plan of care. I will refill the patient's tizanidine 4 mg 3 times daily and [place] 5 mg and change it to 3 times daily and provide a 1 month supply of these medications. Patient will be scheduled for bilateral intra-articular injections of her hips. Patient has been advised of risks of oversedation with the prescribed medication. Narcan has been offered to the patient in the event of oversedation. Patient has been advised that a family member should also be educated regarding administration of Narcan. Patient has been instructed to contact the clinic with any concerns before the next appointment. Dr. Savage has reviewed this note and agrees with this plan of care. This note was dictated using voice recognition software and make contain errors or omissions. [facility] Disclaimer: The information contained in this section may have been updated after the patient was seen, as this information can be updated by other users. Medical History Abnormal EKG Anxiety Arrhythmia CHF (co
[2022-10-31 12:02] VITALS: BP 123/72; PULSE 69; RESP 18; O2SAT 97; BMI 40.7
== END | disposition home or self-care (01) ==
PROVIDERS: PCP Nurse Practitioner Family; Visit Provider Nurse Practitioner Family
DX: M51.16 Intervertebral disc disorders with radiculopathy, lumbar region (principal); M46.1 Sacroiliitis, not elsewhere classified; M70.50 Other bursitis of knee, unspecified knee; M17.0 Bilateral primary osteoarthritis of knee; M25.561 Pain in right knee; M25.562 Pain in left knee
CPT/HCPCS: 99212; G0463

== ENCOUNTER 2022-11-15 12:00 | Day surgery (SDC) | payer MEDICARE, SELFPAY ==
[2022-11-15 12:14] VITALS: BP 113/69; PULSE 70; RESP 18; TEMP 36.7; O2SAT 99; BMI 43.2
[2022-11-15 12:25] VITALS: BP 124/54; PULSE 69; RESP 18; O2SAT 97
[2022-11-15 12:28] VITALS: BP 124/54; PULSE 69; RESP 18; O2SAT 97
[2022-11-15 12:32] VITALS: BP 124/52; PULSE 66; RESP 16; O2SAT 99
--- NOTE | 2022-11-15 12:49 | P.PCN_ITS ---
Procedure Date: 11/15/22 Time: 12:20 Anesthesiologist:: Live Romero CRNA Complications:: None Pre-procedure Diagnosis:: Osteoarthritis bilateral hip Post-procedure Diagnosis:: Same Indications for Procedure:: Patient is a pleasant 57-year-old female that comes our clinic today for bilater al intra-articular hip injections. Patient complains of bilateral hip pain that is constant, dull, aching. Patient states pain increases significantly with ambulation. She rates her pain 7/10. Procedure Details:: Details of the procedure were explained to the patient. The patient was taken to procedure room placed in the supine position. The area over the bilateral hip was cleaned using chlorhexidine as a cleansing solution. Using fluoroscopy guidance a 3 and half inch 22-gauge spinal needle was used to access the bilateral hip joint without difficulty. After negative aspiration 3 cc of 1% lidocaine +3 cc of 0.25% Marcaine and 40 mg of Depo-Medrol was injected. Needle was withdrawn. Band-Aid applied. Patient tolerated procedure without difficulty. There are no complications. Plan and Disposition:: Patient was discharged without incident.
== END 2022-11-15 12:32 | disposition home or self-care (01) ==
LOC: SC.PAINP 12:02
PROVIDERS: PCP Nurse Practitioner Family; Visit Provider Nurse Anesthetist, Certified Registered
DX: M16.0 Bilateral primary osteoarthritis of hip (principal)
CPT/HCPCS: 20610; 77002; J1040

== ENCOUNTER → 2022-11-30 12:49 | Outpatient (POV) | payer MEDICARE, SELFPAY ==
[2022-11-30 13:06] VITALS: BP 146/71; PULSE 75; RESP 20; BMI 41.9
--- NOTE | 2022-11-30 13:58 | EXP.PAIN.SOA ---
[facility] Pain Management SOAP Note Subjective:: Patient is a pleasant 57-year-old female who presents today for follow-up of bilateral hip intra-articular injections on 11/15/2022. We are currently treating the patient for degenerative disc disease of lumbar spine with lumbar radiculopathy symptoms, sacroiliitis, Pez anserine bursitis, bilateral knee pain/osteoarthritis. Today she rates her pain a 7 out of 10. Patient states that she has had at least 70% improvement following her hip injections. She states she has been able to walk easier with decreased pain. She does state though that she is experiencing pain in her bilateral buttocks area. She describes this as a achy sensation that is worse in the mornings and will occasionally get better as the day goes on. Patient does also state that from our last visit she did see a school health assistant who ruled out RA but is thinking more like severe fibromyalgia. She states that she is still seeing her family doctor who is running additional tests for possible autoimmune disorders. She states she was started on Cymbalta 30 mg daily and has noticed that some improvement with her mood. Patient is currently managed with [place] 5 mg 3 times a day and tizanidine 4 mg 3 times a day. Patient denies any side effects from this medication. Her Anatoly is [id number]. Its been reviewed and appropriate. Review of Systems: General: No recent weight changes, no fever, no sleep disturbances Respiratory: No cough, no shortness of air, no recurring pulmonary infections Cardiovascular/peripheral vascular: No chest pain, no palpitations, no edema, no shortness of breath Gastrointestinal: No new onset incontinence, normal bowel movements reported Genitourinary: No new onset incontinence Musculoskeletal: Bilateral buttocks pain Psychiatric: [Normal mood/affect] Neurological: [Denies weakness in extremities], [denies balance issues] Objective:: Physical Exam: General: Alert and oriented x3, no acute distress, pleasant and cooperative Lungs: Respirations even and unlabored, symmetrical chest expansion Eyes: PERRL Musculoskeletal: Flexion and extension of lumbar [spine] somewhat guarded secondary to pain, [antalgic gait noted] point tenderness noted at bilateral piriformis muscles Neurological: Speech clear, no gross sensory deficit Assessment:: Degenerative disc disease of lumbar spine with lumbar radiculopathy symptoms, sacroiliitis, Pez anserine bursitis, bilateral knee pain/osteoarthritis, bilateral piriformis syndrome Plan:: Patient is experiencing significant pain in her bilateral buttocks area with point tenderness noted at her piriformis muscles. I have discussed with the patient that she may benefit from bilateral piriformis injections. Risk and benefits were discussed with the patient and she would like to proceed forward with this plan of care. I have also discussed with the patient that she may benefit from pregabalin. Patient previously did try gabapentin however she was unable to tolerate it due to increased grogginess. I will send in refills on her [place] 5 mg twice a day and tizanidine 4 mg 3 times a day as well as a new prescription for pregabalin 100 mg at bedtime and provide a 1 month supply of these medications. Patient will be scheduled for bilateral piriformis injections. Patient has been advised of risks of oversedation with the prescribed medication. Narcan has been offered to the patient in the event of oversedation. Patient has been advised that a family member should also be educated regarding administration of Narcan. Patient has been instructed to contact the clinic with any concerns before the next appointment. Dr. Savage has reviewed this note and agrees with this plan of care. This note was dictated using voice recognition software and make contain errors or omissions. [facility] Disclaimer: The information contained in this section may have been updated after the patient was seen, as this information can b
== END | disposition home or self-care (01) ==
PROVIDERS: PCP Nurse Practitioner Family; Visit Provider Nurse Practitioner Family
DX: M51.16 Intervertebral disc disorders with radiculopathy, lumbar region (principal); M46.1 Sacroiliitis, not elsewhere classified; M70.50 Other bursitis of knee, unspecified knee; M17.0 Bilateral primary osteoarthritis of knee; G57.03 Lesion of sciatic nerve, bilateral lower limbs
CPT/HCPCS: 99212; G0463

== ENCOUNTER 2022-12-27 09:36 | Day surgery (SDC) | payer MEDICARE, SELFPAY ==
[2022-12-27 09:40] VITALS: BP 116/72; PULSE 69; RESP 18; TEMP 36.4; O2SAT 98; BMI 40.7
[2022-12-27 10:08] VITALS: BP 123/53; PULSE 64; RESP 18; O2SAT 96
[2022-12-27 10:10] VITALS: BP 123/53; PULSE 64; RESP 18; O2SAT 96
--- NOTE | 2022-12-27 10:17 | P.PCN_ITS ---
Procedure Date: 12/27/22 Time: 10:10 Anesthesiologist:: Live Romero CRNA Complications:: None Pre-procedure Diagnosis:: Bilateral piriformis syndrome. Bilateral posterior hip pain. Post-procedure Diagnosis:: Same. Indications for Procedure:: Patient is a very pleasant 57-year-old female comes our clinic today for bilateral piriformis injection. She has bilateral posterior hip pain she describes as constant, dull, aching. Patient is had this injection in the past with significant improvement. She is requesting a repeat bilateral piriformis injection. She rates her pain 7/10. Procedure Details:: Details of the procedure explained to the patient. The patient taken the procedure room placed in the prone position on fluoroscopy table. The area over the posterior hips/buttocks was cleaned using chlorhexidine as a cleansing solu tion. Using a 22-gauge 3 and half inch needle the left piriformis muscle was accessed with ease. Needle position was confirmed using 0.5 cc of contrast dye with a lateral spread. At this time after negative aspiration 60 cc of a solution containing 0.25% Marcaine +1% lidocaine and 20 mg of Depo-Medrol was injected. The same procedure was carried out on the right piriformis. Patient tolerated procedure without difficulty. There are no complications. Plan and Disposition:: Patient was discharged without incident.
[2022-12-27 10:25] VITALS: BP 124/66; PULSE 56; RESP 18; O2SAT 98
== END 2022-12-27 10:25 | disposition home or self-care (01) ==
PROVIDERS: PCP Nurse Practitioner Family; Visit Provider Nurse Anesthetist, Certified Registered
DX: G57.03 Lesion of sciatic nerve, bilateral lower limbs (principal); M25.551 Pain in right hip; M25.552 Pain in left hip
CPT/HCPCS: 20552; 77002; J1040; Q9966

== ENCOUNTER → 2023-02-03 10:00 | Outpatient (POV) | payer MEDICARE, SELFPAY ==
--- NOTE | 2023-02-03 10:48 | A.OFFVIS_ITS ---
[facility] Pain Management SOAP Note Subjective:: Patient is a pleasant 57-year-old female that comes our clinic today for medication refills. We currently manage the patient's pain with hydrocodone 5 mg 1 p.o. 3 times daily. Lyrica 100 mg 1 p.o. every day. Patient states these medications take the edge off of her overall pain. Specifically, her pain is lumbar back as well as bilateral hip and leg radicular symptoms. Chronic left knee pain secondary to total knee replacement. Arthritis right hand. Fibromyalgia. Bilateral sacroiliitis. Bilateral piriformis syndrome. Patient's Anatoly #[id number] is been reviewed and appropriate. Patient has a history of blood clots. Patient is on Effient daily. Patient unable to take NSAIDs. I discussed with her regarding intrathecal pain pump management for her pain. I gave her a brochure. I talked to her in depth about how the pump works etc. She is very interested in potential pain pump trial. She will read the material and discuss with us at her next visit. Objective:: Patient is awake alert [place] x3. In no acute distress. Flexion-extension lumbar spine guarded secondary to pain. Deep tendon reflexes upper and lower extremities normal. Motor strength upper and lower extremities normal. There is no gross sensory disc gait is normal Assessment:: Degenerative disc lumbar spine multilevels. Lumbar radiculopathy. Bilateral sacroiliitis. Fibromyalgia. Chronic arthritis pain. Plan:: Patient already has refills for this month. She will return next month for medication refills. Also, patient will read information regarding intrathecal pain pump management for chronic pain. We will discuss this at her next visit as well. Patient requesting steroid Dosepak. She is continue to have chronic bilateral ankle pain. Right wrist pain. I think this would be reasonable. We will send this to her pharmacy. [facility] Disclaimer: The information contained in this section may have been updated after the patient was seen, as this information can be updated by other users. Medical History (Updated 01/25/23 @ 13:10 by Angeles Hartman APRN) Abnormal EKG Anxiety Arrhythmia CHF (congestive heart failure) Coronary artery disease Depression Dizziness Dyspnea GERD (gastroesophageal reflux disease) HTN (hypertension) Hyperlipidemia Lung disease Myocardial infarction Normal colonoscopy Obesity Palpitations Sinus bradycardia Surgical History H/O arthroscopy of left knee History of arthroscopy of right shoulder Family History Other No significant family history Social History Smoking Status: Former smoker second hand exposure: No alcohol intake: never substance use type: denies use current occupational status: other Travel in the last 8 weeks: None household members: spouse housing: house 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
[2023-02-03 12:28] VITALS: BP 118/74; PULSE 68; RESP 18; O2SAT 99; BMI 41.9
== END | disposition home or self-care (01) ==
PROVIDERS: PCP Nurse Practitioner Family; Visit Provider Nurse Anesthetist, Certified Registered
DX: M51.16 Intervertebral disc disorders with radiculopathy, lumbar region (principal); M46.1 Sacroiliitis, not elsewhere classified; M79.7 Fibromyalgia; M19.90 Unspecified osteoarthritis, unspecified site; G89.29 Other chronic pain
CPT/HCPCS: 99212; G0463

== ENCOUNTER → 2023-02-15 06:19 | Outpatient (CLI) | payer MEDICARE, SELFPAY ==
--- NOTE | 2023-02-15 06:22 | NM_ITS ---
APPROVED REPORT Exam: Nuclear Stress Test Indication: CAD, 2 STENTS, H/O FL, FM HX, C.P., SOB, PALPITATIONS, FATIGUE Patient Location: Outpatient Stress Tech: Emi Tavera [place] Tech:Jenn CuadraREUBEN RT(R)(N) Ht: 5 ft 6 in Wt: 260 lbs Bra Size: 44C HR: 67 bpm BP: 109/47 mmHg BSA: 2.24 m2 Rhythm: NSR TID: 1.14 BMI: 41.9 History: CAD, 2 STENTS, H/O FL, FM HX, C.P., SOB, PALPITATIONS, FATIGUE Procedure: Patient received 0.4 mg of intravenous Lexiscan, resting heart rate 67 bpm, resting blood pressure 109/47 mmHg, with Lexiscan maximum heart rate achieved was 137 bpm which is % of the maximum predicted heart rate and blood pressure was 112/53 mmHg. With Lexiscan, patient denied any complaint of chest pain. Cardiac Stress and Resting SPECT Images: Cardiac Stress and Resting SPECT images were obtained using technetium 99m Myoview 31.0 mCi stress and 10.18 mCi at rest. Raw images demonstrate significant GI radiotracer uptake in close proximity to the inferior border of the LV wall. This may affect the diagnostic interpretation of the study findings. Resting and stress imaging in supine position demonstrate a medium sized, mild, fixed perfusion defect in the anterior LV wall. This is no longer visualized with prone stress imaging. Findings are suggestive of diaphragmatic attenuation. Gated imaging demonstrates normal global and regional LV systolic function. LVEF is calculated at 58%. Conclusion: No definite evidence of fixed or reversible perfusion defects. Gated imaging demonstrates normal global and regional LV systolic function. LVEF is calculated at 58%. Electronically signed by : Kacie Witt MD 02/19/2023 00:39:35
[2023-02-15 09:59] LABS: Basophils # 0.1 K/mm3 (0-0.2); Basophils % 0.8 % (0.1-2.0); Eosinophils # 0.2 K/mm3 (0.0-0.4); Eosinophils % 2.1 % (0.1-12.0); Hematocrit 39.3 % (37.0-47.0); Hemoglobin 13.6 g/dL (12.2-16.2); Lymphocytes # 4.1 K/mm3 (0.7-4.5); Lymphocytes % 36.5 % (10-50); Mean Corpuscular HGB Conc 34.6 g/dL (31.8-35.4); Mean Corpuscular Hemoglobin 31.7 pg (27.0-31.2); Mean Corpuscular Volume 91.5 fl (81-99); Mean Platelet Volume 9.1 fl (7.4-10.4); Monocytes # 0.6 K/mm3 (0.1-1.0); Monocytes % 4.9 % (1.7-9.3); Neutrophils # 6.3 K/mm3 (1.8-7.8); Neutrophils % 55.7 % (37.0-80.0); Platelet Count 218 K/mm3 (142-424); Red Cell Distribution Width 13.3 % (11.5-17.5); White Blood Count 11.3 K/mm3 (4.8-10.8)
[2023-02-15 10:28] LABS: Magnesium 1.8 mg/dl (1.6-2.3)
[2023-02-15 10:30] LABS: Alanine Aminotransferase 19 U/L (12-78); Alkaline Phosphatase 61 U/L (38-126); Anion Gap 9.9 mEq/L (5-15); Aspartate Amino Transferase 23 U/L (14-36); Bilirubin,Direct 0.1 mg/dl (0.0-0.4); Bilirubin,Indirect 0.5 mg/dL (0.0-0.9); Bilirubin,Total 0.6 mg/dl (0.2-1.3); Bilirubin,Unconjugated 0.5 mg/dL (0.0-1.1); Blood Urea Nitrogen 17 mg/dl (7-17); Calcium 9.2 mg/dl (8.4-10.2); Carbon Dioxide 27 mmol/L (22.0-30.0); Chloride 106 mmol/L (98-107); Chol/HDL Ratio 2.6 (1-3.5); Cholesterol 190 mg/dl (140-200); Estimated Glomerular Filt Rate 87 ml/min (>60); GFR (African American) 105 ML/MIN (>60); Glucose 83 mg/dl (74-100); HDL Cholesterol 73 mg/dl (40-60); Potassium 3.9 mmoL/L (3.5-5.1); Sodium 139 mmol/L (136-145); Total Protein,Serum 6.6 g/dl (6.3-8.2); Triglycerides 76 mg/dl (30-150); VLDL Cholesterol 15 mg/dL (0-40)
[2023-02-15 10:41] LABS: Direct LDL Cholesterol 96.39 mg/dL (100-129)
[2023-02-15 10:46] LABS: Free T4 (Free Thyroxine) 1.41 ng/dl (0.78-2.19)
[2023-02-15 11:02] LABS: Thyroid Stimulating Hormone 0.86 uIU/mL (0.465-4.68)
--- NOTE | 2023-02-15 11:02 | CA_ITS ---
APPROVED REPORT Exam: Pharmacologic Technologist: Emi Tavera, Ht: 5 ft 6 in Wt: 262 lbs BSA: 2.24 m2 HR: 61 bpm BP: 109/47 mmHg Rhythm: NSR Indications: Chest pain, dyspnea Medical History Medications: Aspirin,,,,, Lyrica,,,,, Ropinirole,,,,, Naproxen,,,,, Famotidine,,,,, AmiTRIPTYLINE,,,,, Tizanidine,,,,, Esomeprazole,,,,, RoSUVASTATIN,,,,, Prasugel,,,,, Hydrocodone-Acetaminophen,,,,, Furosemide,,,,, Stress Test Details Test: LEXISCAN Reason for pharmacologic stress test: physical limitation. HR Resting HR: 67 bpm Max Heart Rate (APMHR): 165 bpm Max HR Achieved: 137 bpm Target HR (85% APMHR): 140 bpm % of APMHR: 83 Recovery HR: 59 bpm BP Resting BP: 109/47 mmHg Max BP: 112/53 mmHg Recovery BP: 112.0/43.0 mmHg ECG Resting ECG: NSR, cannot R/O old septal FL, ST abns inferiorly & laterally Stress ECG: No significant ST changes Arrhythmia: Brief run of SVT, occasional PACs Clinical Exercise duration: 04:04 min Highest Stage Achieved: Exercise capacity: 1.0 METs Stress ECG Conclusion Symptoms: Mild chest discomfort, SOA, mild stomach & head discomfort. Arrhythmias/Ectopy: Occasional PAC. Brief SVT run (IY051m bpm lasting [address] beats). ST-T Changes: No significant ST changes Conclusion: No evidence of ischemia on Lexiscan stress test. Brief run of SVT (HR 140s). Myoview images reported separately. Test Summary REST 06:17 . . 67 . 109/ 47 . . Stage 1 . . . . . . . Myoview Injected Stage 1 01:00 . . 75 . . . . Stage 2 01:00 . . 76 . . . . Stage 3 01:00 . . 70 . 112/ 53 . . Stage 4 01:00 . . 70 . 105/ 49 . . Stage 4 01:04 . . 73 . 105/ 49 . Stop exercise at 04:04 RECOVERY 01:00 . . 67 . 92/ 61 . . RECOVERY 02:00 . . 64 . 92/ 61 . . RECOVERY . . . . . . . chest tightness RECOVERY 03:00 . . 66 . 97/ 49 . . RECOVERY 04:00 . . 60 . 112/ 43 . . RECOVERY 04:42 . . 62 . 112/ 43 . . Electronically signed by : aKcie Witt MD 02/19/2023 00:35:59
[2023-02-15 11:18] LABS: Vitamin B12 272 pg/mL (239-931)
[2023-02-21 11:47] LABS: Antinuclear Antibodies (ANA) Negative
== END ==
PROVIDERS: PCP Nurse Practitioner Family; Referring Provider Nurse Practitioner Family; Visit Provider Nurse Practitioner Family
DX: E78.5 Hyperlipidemia, unspecified; I10 Essential (primary) hypertension; I25.10 Atherosclerotic heart disease of native coronary artery without angina pectoris; K21.9 Gastro-esophageal reflux disease without esophagitis; R06.00 Dyspnea, unspecified; R07.9 Chest pain, unspecified; E66.01 Morbid (severe) obesity due to excess calories; Z68.41 Body mass index [BMI] 40.0-44.9, adult; R79.89 Other specified abnormal findings of blood chemistry; M25.50 Pain in unspecified joint; M79.10 Myalgia, unspecified site
CPT/HCPCS: 36415; 78452; 80048; 80061; 80076; 82607; 83735; 84439; 84443; 85025; 86038; 93017; A9502; J2785

== ENCOUNTER → 2023-03-03 10:25 | Outpatient (POV) | payer MEDICARE, SELFPAY ==
--- NOTE | 2023-03-03 10:52 | A.OFFVIS_ITS ---
[facility] Pain Management SOAP Note Subjective:: This patient is a pleasant 57-year-old female comes our clinic today for follow- up visit regarding medication refills. We currently manage the patient with hydrocodone 5 mg 1 p.o. 3 times daily. Patient reports medication certainly takes the edge off of her overall low back pain as well as bilateral hip and leg radicular symptoms. She is able to do ADLs. She does not report any side effects from the medication. Patient is scheduled for lumbar epidural steroid injection at another facility next week. Patient complains today of left foot pain. Upon examination there is some slight edema on top of the left foot distally. Minimal pain upon examination. However, patient states pain with ambulation. Pain with flexion and/or extension of the toes. Patient reports she has had issues in the past with cellulitis. Patient denies any trauma. I recommend a left foot x-ray to rule out fracture. Also, patient will follow-up with her PCP on Monday morning regarding left foot. Objective:: Patient is awake alert [place] x3. In no acute distress. Flexion-extension lumbar spine somewhat guarded secondary to pain. Deep tendon reflexes upper lower extremities normal. There is no gross sensory deficit. Gait is normal. Assessment:: Degenerative disc lumbar spine multilevels. Lumbar radiculopathy. Left foot pain. Plan:: We will refill the patient's pain medication hydrocodone 5 mg 1 p.o. 3 times daily. Patient's Anatoly has been reviewed and appropriate. Her UDS is appropriate. She will return to the clinic in [address] [facility] Disclaimer: The information contained in this section may have been updated after the patient was seen, as this information can be updated by other users. Medical History (Updated 03/01/23 @ 15:20 by Reba Sánchez APRN) Abnormal EKG Angina pectoris Anxiety Arrhythmia CHF (congestive heart failure) Coronary artery disease Depression Dizziness Dyspnea Edema GERD (gastroesophageal reflux disease) HTN (hypertension) Hyperlipidemia Lung disease Myocardial infarction Normal colonoscopy Obesity Palpitations Sinus bradycardia Surgical History H/O arthroscopy of left knee History of arthroscopy of right shoulder Family History Other No significant family history Social History Smoking Status: Former smoker tobacco type: cigarettes packs per day: 1 second hand exposure: No alcohol intake: never substance use type: denies use current occupational status: other Travel in the last 8 weeks: None household members: spouse housing: house 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
[2023-03-03 11:08] VITALS: BP 118/73; PULSE 65; RESP 18; O2SAT 99; BMI 41.9
== END | disposition home or self-care (01) ==
PROVIDERS: PCP Nurse Practitioner Family; Visit Provider Nurse Anesthetist, Certified Registered
DX: M51.16 Intervertebral disc disorders with radiculopathy, lumbar region (principal); M79.672 Pain in left foot
CPT/HCPCS: 99212; G0463

== ENCOUNTER → 2023-03-03 10:58 | Outpatient (CLI) | payer MEDICARE, SELFPAY ==
--- NOTE | 2023-03-03 | CA_ITS ---
FINAL REPORT TECHNIQUE: Color Doppler, duplex Doppler and compression sonography of the left lower extremity deep venous systems was performed. CLINICAL HISTORY: LT FOOT SWELLING,HX DVT,NKI,PT ON ASA AND PLAVIX FINDINGS: There is no evidence of deep venous thrombosis from the level of the groin to the calf. The veins are patent and compressible. IMPRESSION: No evidence of deep venous thrombosis left lower extremity. Reviewed, Interpreted and Dictated by Chapo bOrien III, MD Transcribed by Bhavani Huston Authenticated and [facility]
--- NOTE | 2023-03-03 11:08 | XR_ITS ---
FINAL REPORT CLINICAL HISTORY: PAIN IN FOOT COMPARISON: None FINDINGS: LEFT FOOT: Three views of the left foot were obtained. There is no acute fracture or dislocation. There is no soft tissue abnormality. Calcaneal spurs are present. There is mild degenerative change in the ankle. IMPRESSION: No acute bony abnormality. Calcaneal spurs are present Reviewed, Interpreted and Dictated by Chapo Obrien III, MD Transcribed by Mary Ashton Authenticated and . [facility]
[2023-03-03 12:54] LABS: Basophils # 0.1 K/mm3 (0-0.2); Basophils % 0.6 % (0.1-2.0); Eosinophils # 0.3 K/mm3 (0.0-0.4); Eosinophils % 3.2 % (0.1-12.0); Hematocrit 40.3 % (37.0-47.0); Hemoglobin 14.1 g/dL (12.2-16.2); Lymphocytes # 3.6 K/mm3 (0.7-4.5); Lymphocytes % 36.2 % (10-50); Mean Corpuscular Hemoglobin 31.4 pg (27.0-31.2); Mean Corpuscular Volume 89.7 fl (81-99); Mean Platelet Volume 9.2 fl (7.4-10.4); Monocytes # 0.4 K/mm3 (0.1-1.0); Monocytes % 4.2 % (1.7-9.3); Neutrophils # 5.5 K/mm3 (1.8-7.8); Neutrophils % 55.7 % (37.0-80.0); Platelet Count 232 K/mm3 (142-424); Red Blood Count 4.49 M/mm3 (4.20-5.40); Red Cell Distribution Width 13.2 % (11.5-17.5); White Blood Count 9.9 K/mm3 (4.8-10.8)
[2023-03-03 14:23] LABS: Uric Acid 6.4 mg/dl (2.5-6.2)
[2023-03-03 15:20] LABS: Magnesium 1.7 mg/dl (1.6-2.3)
[2023-03-03 15:27] LABS: Erythrocyte Sedimentation Rate 34 mm/hr (0-30)
== END ==
PROVIDERS: Nurse Practitioner Family; PCP Nurse Practitioner Family; Visit Provider Anesthesiology
DX: M79.605 Pain in left leg (principal); M79.89 Other specified soft tissue disorders; E66.9 Obesity, unspecified; E78.5 Hyperlipidemia, unspecified; I10 Essential (primary) hypertension; I25.10 Atherosclerotic heart disease of native coronary artery without angina pectoris; K21.9 Gastro-esophageal reflux disease without esophagitis; R06.00 Dyspnea, unspecified; R07.9 Chest pain, unspecified; Z68.41 Body mass index [BMI] 40.0-44.9, adult
CPT/HCPCS: 36415; 73630; 83735; 84550; 85025; 85651; 93971; 99212; G0463

== ENCOUNTER → 2023-03-21 15:31 | Outpatient (CLI) | payer MEDICARE, SELFPAY ==
[2023-03-21 16:10] LABS: C-Reactive Protein 1.6 mg/L (0-4)
[2023-03-21 16:55] LABS: Vitamin B12 507 pg/mL (239-931)
== END ==
PROVIDERS: PCP Nurse Practitioner Family; Visit Provider Nurse Practitioner Family
DX: R79.82 Elevated C-reactive protein (CRP)
CPT/HCPCS: 82607; 84550; 86140

== ENCOUNTER → 2023-03-29 10:55 | Outpatient (POV) | payer MEDICARE, SELFPAY ==
[2023-03-29 11:08] VITALS: BP 114/58; PULSE 65; RESP 18; O2SAT 97; BMI 41.9
--- NOTE | 2023-03-29 11:27 | EXP.PAIN.SOA ---
[facility] Pain Management SOAP Note Subjective:: Patient is a pleasant 57-year-old female who presents today for medication refill and follow-up. We are currently treating the patient for degenerative disc disease of lumbar spine with lumbar radiculopathy symptoms, chronic pain syndrome. Today she rates her pain a 7 out of 10. Patient denies any new trauma or injury. She does state that she has been experiencing worsening pain in her low back that does radiate down her entire left leg. Patient does describe this as an aching, throbbing sensation with some tingling that is worse with increased activity or ambulation. She does state that rest helps. Patient states the pain interferes with her ability to perform activities of daily living such as cooking and cleaning. Patient is currently managed with [place] 5 mg 3 times a day. She denies any side effects from this medication. She stated her last visit Pat had mentioned about increasing her [place] and would make mention in his previous note. Her Anatoly has been reviewed and is appropriate. Review of Systems: General: No recent weight changes, no fever, no sleep disturbances Respiratory: No cough, no shortness of air, no recurring pulmonary infections Cardiovascular/peripheral vascular: No chest pain, no palpitations, no edema, no shortness of breath Gastrointestinal: No new onset incontinence, normal bowel movements reported Genitourinary: No new onset incontinence Musculoskeletal: Low back pain, right leg pain Psychiatric: [Normal mood/affect] Neurological: [Denies weakness in extremities], [denies balance issues] Objective:: Physical Exam: General: Alert and oriented x3, no acute distress, pleasant and cooperative Lungs: Respirations even and unlabored, symmetrical chest expansion Eyes: PERRL Musculoskeletal: Flexion and extension of lumbar [spine] somewhat guarded secondary to pain, [antalgic gait noted] positive right leg raise with decreased sensation to light touch and decreased reflexes Neurological: Speech clear, no gross sensory deficit Assessment:: Degenerative disc disease of lumbar spine with lumbar radiculopathy symptoms, chronic pain syndrome Plan:: Patient is experiencing significant pain in her low back with radiating symptoms down her right leg. Patient had limited range of motion of her lumbar spine during today's visit along with a positive right leg raise and decreased sensation to light touch and decreased reflexes. I have discussed with the patient that she may benefit from a right transforaminal epidural steroid injection. Risk and benefits were discussed with the patient and she would like to proceed forward with this plan of care. Patient is currently on blood thinners and will have to stop this medication prior to this injection. We will contact Dr. Douglas's office and confirm that she can temporarily stop her blood thinner. Patient will be scheduled for a right transforaminal epidural steroid injection L4-L5 and L5-S1. I will refill the patient's [place] 5 mg and change it to 4 times a day. Patient will be given a 1 month supply of this medication. Patient has been advised of risks of oversedation with the prescribed medication. Narcan has been offered to the patient in the event of oversedation. Patient has been advised that a family member should also be educated regarding administration of Narcan. Patient has been instructed to contact the clinic with any concerns before the next appointment. Dr. Savage has reviewed this note and agrees with this plan of care. This note was dictated using voice recognition software and make contain errors or omissions. [facility] Disclaimer: The information contained in this section may have been updated after the patient was seen, as this information can be updated by other users. Medical History Abnormal EKG Angina pectoris Anxiety Arrhythmia CHF (congestive heart failure)
== END | disposition home or self-care (01) ==
PROVIDERS: PCP Nurse Practitioner Family; Visit Provider Nurse Practitioner Family
DX: M51.16 Intervertebral disc disorders with radiculopathy, lumbar region (principal); G89.4 Chronic pain syndrome
CPT/HCPCS: 99212; G0463

== ENCOUNTER 2023-04-21 10:30 | Day surgery (SDC) | payer MEDICARE, MEDICAID, SELFPAY ==
[2023-04-21 10:49] VITALS: BP 127/65; PULSE 64; RESP 16; TEMP 36.3; O2SAT 98; BMI 40.7
[2023-04-21 10:59] VITALS: BP 129/68; PULSE 67; O2SAT 99
[2023-04-21 11:02] VITALS: BP 129/68; PULSE 68; O2SAT 99
--- NOTE | 2023-04-21 11:08 | EXP.PAIN.PRO ---
Procedure Date: 04/21/23 Time: 10:45 Anesthesiologist:: Live Romero CRNA Complications:: None Pre-procedure Diagnosis:: Degenerative disc lumbar spine multilevels. Lumbar radiculopathy. Lumbar spinal stenosis. Lumbar disc bulge L4-5, L5-S1. Post-procedure Diagnosis:: Same. Indications for Procedure:: Patient is a pleasant 57-year-old female comes our clinic today for right transforaminal epidural steroid injection L4-5, L5-S1. Patient has had significant improvement terms of her overall low right lumbar hip pain as well as right hip and leg radicular symptoms with previous injections at the same levels. She describes her right hip and leg pain as constant, dull, aching. She rates pain 7/10. Procedure Details:: Details of the procedure were explained to the patient. The patient was taken the procedure room placed in the prone position. The area of the lumbar spine was cleansed using chlorhexidine as a cleansing solution. At this time using fluoroscopy guidance markers were placed on the right lateral border of the L4 and L5 vertebral body. The skin and subcutaneous tissue was anesthetized using 1% lidocaine and 25-gauge needle. At this time using a 22-gauge 3-1/2 inch spinal needle the right upper one third of the L4-5 foramen was accessed. The same was done at the right L5-S1 foramen. Needle positions were confirmed and a lateral view using fluoroscopy and contrast dye. At this time 1 cc of 1% lidocaine +20 mg of Depo-Medrol was injected at each level after negative aspiration. [place] were removed. Band-Aid applied. Patient tolerated the procedure without difficulty. There are no complications. Plan and Disposition:: Patient was discharged without incident.
[2023-04-21 11:10] VITALS: BP 114/64; PULSE 56; RESP 16; O2SAT 98
== END 2023-04-21 11:10 | disposition home or self-care (01) ==
PROVIDERS: PCP Nurse Practitioner Family; Visit Provider Nurse Anesthetist, Certified Registered
DX: M51.16 Intervertebral disc disorders with radiculopathy, lumbar region (principal); M48.061 Spinal stenosis, lumbar region without neurogenic claudication; M51.26 Other intervertebral disc displacement, lumbar region
CPT/HCPCS: 64483; 64484; J1030

== ENCOUNTER → 2023-05-05 08:41 | Outpatient (CLI) | payer MEDICARE, MEDICAID, SELFPAY ==
[2023-05-05 17:52] LABS: Coronavirus 19, PCR Not Detected (NotDetected); Influenza A, PCR Not Detected (NotDetected); Influenza B, PCR Not Detected (NotDetected)
== END ==
LOC: LAB.DROPOF 05-06 08:42
PROVIDERS: PCP Nurse Practitioner Family; Visit Provider Family Medicine
DX: R50.9 Fever, unspecified (principal)
CPT/HCPCS: 87636

== ENCOUNTER → 2023-05-09 13:29 | Outpatient (POV) | payer MEDICARE, MEDICAID, SELFPAY ==
[2023-05-09 13:40] VITALS: BP 127/76; PULSE 75; RESP 20; O2SAT 96; BMI 41.9
--- NOTE | 2023-05-09 14:10 | EXP.PAIN.SOA ---
[facility] Pain Management SOAP Note Subjective:: This patient is a very pleasant 57-year-old female comes our clinic today for follow-up visit for receiving a right transforaminal epidural steroid injection at the L4-5 and L5-S1 level on 04/21/2023. Patient reports 60 to 70% improvement terms of her overall right hip and leg pain. Also, improvement in terms of her right low lumbar back pain. Patient complaining of some left leg radicular symptoms in the lateral thigh to the knee. Patient requesting an injection for the left side pain. She rates the pain 6/10. Patient continues taking [place] 5 mg 1 p.o. 3 times daily. This is written from our office. Her Anatoly #[id number] has been reviewed and appropriate. We discussed lumbar epidural steroid injection at the L4-5 level on the left. She wishes to proceed. Patient is status post left knee total replacement in 2019. Objective:: Patient is awake alert [place] x 3. No acute distress. Flexion-extension lumbar spine somewhat guarded secondary to pain. Deep tendon reflexes upper lower extremities normal. Motor strength upper and lower extremities normal. There is no gross sensory deficit. Gait is normal. Assessment:: Degenerative disc disease lumbar spine multilevels. Lumbar radiculopathy. Multilevel lumbar disc bulge. Plan:: We will plan lumbar epidural steroid injection on the left at L4-5. Patient is not in need of refills at this time. [facility] Disclaimer: The information contained in this section may have been updated after the patient was seen, as this information can be updated by other users. Medical History Abnormal EKG Angina pectoris Anxiety Arrhythmia CHF (congestive heart failure) Coronary artery disease Depression Dizziness Dyspnea Edema GERD (gastroesophageal reflux disease) HTN (hypertension) Hyperlipidemia Lung disease Myocardial infarction Normal colonoscopy Obesity Palpitations Sinus bradycardia Surgical History H/O arthroscopy of left knee History of arthroscopy of right shoulder Family History Other No significant family history Social History Smoking Status: Former smoker tobacco type: cigarettes packs per day: 1 second hand exposure: No alcohol intake: never substance use type: denies use current occupational status: other Travel in the last 8 weeks: None household members: spouse housing: house 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
== END ==
PROVIDERS: PCP Nurse Practitioner Family; Visit Provider Nurse Anesthetist, Certified Registered
DX: M51.16 Intervertebral disc disorders with radiculopathy, lumbar region (principal); M51.26 Other intervertebral disc displacement, lumbar region
CPT/HCPCS: 99212; G0463

== ENCOUNTER 2023-05-15 16:26 | Outpatient (CLI) | payer MEDICARE, MEDICAID, SELFPAY ==
[2023-05-15 16:51] LABS: Basophils # 0.1 K/mm3 (0-0.2); Basophils % 0.8 % (0.1-2.0); Eosinophils # 0.2 K/mm3 (0.0-0.4); Eosinophils % 1.6 % (0.1-12.0); Hematocrit 42.4 % (37.0-47.0); Hemoglobin 14.8 g/dL (12.2-16.2); Lymphocytes # 5.5 K/mm3 (0.7-4.5); Lymphocytes % 36.3 % (10-50); Mean Corpuscular HGB Conc 34.9 g/dL (31.8-35.4); Mean Corpuscular Hemoglobin 30.6 pg (27.0-31.2); Mean Corpuscular Volume 87.8 fl (81-99); Mean Platelet Volume 9.5 fl (7.4-10.4); Monocytes # 0.6 K/mm3 (0.1-1.0); Monocytes % 3.8 % (1.7-9.3); Neutrophils # 8.8 K/mm3 (1.8-7.8); Neutrophils % 57.5 % (37.0-80.0); Platelet Count 251 K/mm3 (142-424); Red Blood Count 4.82 M/mm3 (4.20-5.40); White Blood Count 15.3 K/mm3 (4.8-10.8)
[2023-05-15 16:54] LABS: MANUAL DIFFERENTIAL MANUAL DIFFERENTIAL (MANUAL DIFF)
[2023-05-15 17:29] LABS: Lymphocytes % 39 % (10-50); Monocytes % 4 % (2-9); Neutrophils % 57 % (42-76); Platelet Estimate Normal; RBC Morphology Normal; Total Cells Counted 100
[2023-05-15 17:41] LABS: Alanine Aminotransferase 20 U/L (12-78); Albumin Level 4.3 g/dl (3.5-5.0); Albumin/Globulin Ratio 1.8 (1.1-1.8); Alkaline Phosphatase 77 U/L (38-126); Anion Gap 10.3 mEq/L (5-15); Aspartate Amino Transferase 28 U/L (14-36); Bilirubin,Total 0.5 mg/dl (0.2-1.3); Blood Urea Nitrogen 20 mg/dl (7-17); Carbon Dioxide 27 mmol/L (22.0-30.0); Chloride 104 mmol/L (98-107); Cholesterol 156 mg/dl (140-200); Estimated Glomerular Filt Rate 65 ml/min (>60); GFR (African American) 79 ML/MIN (>60); Globulin 2.4 g/dL (1.3-3.2); Glucose 85 mg/dl (74-100); HDL Cholesterol 78 mg/dl (40-60); Potassium 4.3 mmoL/L (3.5-5.1); Sodium 137 mmol/L (136-145); Total Protein,Serum 6.7 g/dl (6.3-8.2); Triglycerides 151 mg/dl (30-150); VLDL Cholesterol 30 mg/dL (0-40)
== END 2023-05-15 23:59 ==
PROVIDERS: PCP Nurse Practitioner Family; Visit Provider Nurse Practitioner Family
DX: Z00.00 Encounter for general adult medical examination without abnormal findings (principal); E78.5 Hyperlipidemia, unspecified; N28.9 Disorder of kidney and ureter, unspecified; Z13.0 Encounter for screening for diseases of the blood and blood-forming organs and certain disorders involving the immune mechanism; Z79.899 Other long term (current) drug therapy
CPT/HCPCS: 80053; 80061; 84443; 85007; 85025

== ENCOUNTER 2023-05-17 13:07 | Outpatient (CLI) | payer MEDICARE, MEDICAID, SELFPAY ==
--- NOTE | 2023-05-17 13:10 | XR_ITS ---
FINAL REPORT CLINICAL HISTORY: acute cough COMPARISON: 03/13/2022 FINDINGS: TWO-VIEW CHEST The heart size is normal. The patient is status post median sternotomy. The lungs are clear. There is no pneumothorax. There are moderate degenerative change of the thoracic spine. IMPRESSION: No acute cardiopulmonary process. Reviewed, Interpreted and Dictated by Chapo Obrien III, MD Transcribed by Bhavani Huston Authenticated and [facility]
== END 2023-05-17 23:59 ==
PROVIDERS: PCP Nurse Practitioner Family; Visit Provider Nurse Practitioner Family
DX: R05.1 Acute cough (principal)
CPT/HCPCS: 71046

== ENCOUNTER 2023-05-23 11:47 | Day surgery (SDC) | payer MEDICARE, MEDICAID, SELFPAY ==
[2023-05-23 12:03] VITALS: BP 133/70; PULSE 66; RESP 18; O2SAT 98; BMI 43.2
--- NOTE | 2023-05-23 12:15 | EXP.PAIN.PRO ---
Procedure Date: 05/23/23 Time: 12:00 Anesthesiologist:: Live Romero CRNA Complications:: None Pre-procedure Diagnosis:: Degenerative disc lumbar spine multilevels. Lumbar radiculopathy. Multilevel disc bulge lumbar spine. Post-procedure Diagnosis:: Same. Indications for Procedure:: Patient is a very pleasant 57-year-old female comes our clinic today for lumbar epidural steroid injection. Patient responded well on 04/21/2023 to right transforaminal epidural steroid injection at the L4-5 and L5-S1 level. Patient reports significant improvement terms of her overall right hip and leg radicular symptoms. Patient's main complaint is lumbar back pain with some left lateral thigh pain. She rates her pain 6/10. Procedure Details:: Procedure: Lumbar epidural steroid injection under fluoroscopy Informed consent was obtained and the risks and benefits of the procedure were explained to the patient. The patient was taken to the procedure room and noninvasive monitors placed, including noninvasive blood pressure cuff and pulse oximeter. The back was viewed using C-arm Fluoroscopy and prepped using Chloraprep as a cleansing solution and the L4-L5 interspace was palpated. Skin and subcutaneous tissues were anesthetized using lidocaine 1.5% and a 25-gauge needle. After this, an 18-gauge Touhy epidural needle was placed into the L4-L5 interspace and advanced using fluoroscopic guidance and loss of resistance to air until the epidural space was encountered. After confirmation of needle placement in the epidural space, with dye, a solution containing normal saline, 3 mL and Depo-Medrol 80 mg were incrementally injected into the lumbar epidural space. The patient tolerated the procedure well with no complications. The patient was observed in the Pain Clinic and then discharged home neurologically intact. Plan and Disposition:: Patient was discharged without incident.
[2023-05-23] MEDS: methylPREDNISolone ACETATE 80MG/ML VIAL 80 MG (12:23)
[2023-05-23 12:24] VITALS: BP 106/73; PULSE 68; RESP 18; O2SAT 99
[2023-05-23 12:25] VITALS: BP 106/73; PULSE 63; RESP 18; O2SAT 99
[2023-05-23 12:30] VITALS: BP 132/67; PULSE 64; RESP 16; O2SAT 98
== END 2023-05-23 12:30 | disposition home or self-care (01) ==
PROVIDERS: PCP Nurse Practitioner Family; Visit Provider Nurse Anesthetist, Certified Registered
DX: M51.16 Intervertebral disc disorders with radiculopathy, lumbar region (principal); M51.26 Other intervertebral disc displacement, lumbar region
CPT/HCPCS: 62323; J1040

== ENCOUNTER → 2023-06-07 13:27 | Outpatient (POV) | payer MEDICARE, MEDICAID, SELFPAY ==
--- NOTE | 2023-06-07 13:51 | A.OFFVIS_ITS ---
[facility] Pain Management SOAP Note Subjective:: Patient is a pleasant 57-year-old female who presents today for medication refill and follow-up of lumbar epidural steroid injection L4-L5. We are currently treating the patient for degenerative disc disease of lumbar spine with lumbar radiculopathy symptoms, chronic pain syndrome. Today she rates her pain a 7 out of 10. Patient denies any new trauma or injury. She states she has had approximately 50% improvement following this injection and states that is still helping some. Patient states she has been able to increase her activity with decreased pain symptoms and does feel like her function has been improved somewhat. Patient states she is noticing a little bit more symptoms down her entire left leg. Patient did previously have a transforaminal injection that did provide 60 to 70% improvement. Patient states that she is possibly interested in future for doing this injection on her left side. She is currently managed with [place] 5 mg 4 times a day. She denies any side effects from this medication. Her Anatoly has been reviewed and is appropriate. Review of Systems: General: No recent weight changes, no fever, no sleep disturbances Respiratory: No cough, no shortness of air, no recurring pulmonary infections Cardiovascular/peripheral vascular: No chest pain, no palpitations, no edema, no shortness of breath Gastrointestinal: No new onset incontinence, normal bowel movements reported Genitourinary: No new onset incontinence Musculoskeletal: Low back pain, left leg pain Psychiatric: [Normal mood/affect] Neurological: [Denies weakness in extremities], [denies balance issues] Objective:: Physical Exam: General: Alert and oriented x3, no acute distress, pleasant and cooperative Lungs: Respirations even and unlabored, symmetrical chest expansion Eyes: PERRL Musculoskeletal: Flexion and extension of lumbar [spine] somewhat guarded secondary to pain, [antalgic gait noted] Neurological: Speech clear, no gross sensory deficit Assessment:: Degenerative disc disease of lumbar spine with lumbar radiculopathy symptoms, chronic pain syndrome Plan:: Patient has had approximately 50% improvement following her lumbar epidural. I will refill the patient's Ch[place] 5 mg 4 times a day and provide a 1 month supply of this medication. Patient will return to clinic in 1 month for reevaluation of symptoms and plan of care. Risks and benefits of the medication have been explained in detail to the patient. The patient does understand the risk of dependence on the medication when given over a prolonged period. Patient has been advised of risks of oversedation with the prescribed medication. Narcan has been offered to the paitent in the event of oversedation. Patient has been advised that a family member should also be educated regarding administration of Narcan. The patient has been advised to consult with his/her primary care provider and pharmacist regarding drug-drug interaction of medications currently prescribed. Patient has been prescribed a controlled substance after being counseled on the medication, medication safety, and possible side effects. Opioid contract was reviewed and signed by the patient, and that they have agreed to all of the terms set forth by our compliance program. Patient has been instructed to contact the clinic with any concerns before the next appointment. Dr. Savage has reviewed this note and agrees with this plan of care. This note was dictated using voice recognition software and make contain errors or omissions. [facility] Disclaimer: The information contained in this section may have been updated after the patient was seen, as this information can be updated by other users. Medical History Abnormal EKG Angina pectoris Anxiety Arrhythmia CHF (congestive heart failure) Coronary artery disease Depression Dizziness Dyspnea Edema GERD (gastroesophageal reflux disease) HTN (hypertension) Hyperlipidemia Lung disease Myocardial infarction Normal colonoscopy Obesity Palpitations Sinus bradycardia Surgical History H/O arthroscopy of left knee History of arthroscopy of right shoulder Hx of cardiac cath Family History Other No significant family history Social History Smoking Status: Former smoker tobacco type: cigarettes packs per day: 1 second hand exposure: No alcohol intake: never substance use type: denies use current occupational status: other Travel in the last 8 weeks: None household members: spouse housing: house 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
[2023-06-07 14:06] VITALS: BP 115/58; PULSE 64; RESP 20; BMI 43.2
== END | disposition home or self-care (01) ==
PROVIDERS: PCP Nurse Practitioner Family; Visit Provider Nurse Practitioner Family
DX: M51.16 Intervertebral disc disorders with radiculopathy, lumbar region (principal); G89.4 Chronic pain syndrome
CPT/HCPCS: 99212; G0463

== ENCOUNTER → 2023-07-06 13:28 | Outpatient (POV) | payer MEDICARE, MEDICAID, SELFPAY ==
[2023-07-06 13:49] VITALS: BP 128/54; PULSE 64; RESP 18; O2SAT 96; BMI 43.2
--- NOTE | 2023-07-06 14:18 | A.OFFVIS_ITS ---
[facility] Pain Management SOAP Note Subjective:: Patient is a pleasant 57-year-old female who presents today for medication refill and follow-up. We are currently treating the patient for degenerative disc disease of lumbar spine with lumbar radiculopathy symptoms, chronic pain syndrome. Today she rates her pain a 9 out of 10. Patient denies any new trauma or injury. She does state that she is experiencing more pain in her low back that does radiate down her entire right lower extremity. Patient does describe this as an aching, throbbing sensation that is worse with increased ambulation or activity. She does state the pain interferes with her ability perform activities of daily living such as cooking and cleaning. Patient did p reviously have a transforaminal injection back in April that did provide approximately 60 to 70% improvement. Patient is interested in repeating this injection. Patient is also managed with [place] 5 mg 4 times a day. Patient states that she really feels like this is not working well for her. Patient does state that it is only taking the edge off and sometimes that she has even had to take 2 at a time to really notice significant relief. Patient is also asking questions regarding the medication colchicine as an anti-inflammatory. Patient does have a heart history with stents placed. Her Anatoly has been reviewed and is appropriate. Review of Systems: General: No recent weight changes, no fever, no sleep disturbances Respiratory: No cough, no shortness of air, no recurring pulmonary infections Cardiovascular/peripheral vascular: No chest pain, no palpitations, no edema, no shortness of breath Gastrointestinal: No new onset incontinence, normal bowel movements reported Genitourinary: No new onset incontinence Musculoskeletal: Low back pain, right leg pain Psychiatric: [Normal mood/affect] Neurological: [Denies weakness in extremities], [denies balance issues] Objective:: Physical Exam: General: Alert and oriented x3, no acute distress, pleasant and cooperative Lungs: Respirations even and unlabored, symmetrical chest expansion Eyes: PERRL Musculoskeletal: Flexion and extension of lumbar [spine] somewhat guarded secondary to pain, [antalgic gait noted] positive right leg raise with decreased sensation to light touch and decreased reflexes Neurological: Speech clear, no gross sensory deficit Assessment:: Degenerative disc disease of lumbar spine with lumbar radiculopathy symptoms, chronic pain syndrome, right leg pain Plan:: Patient is experiencing worsening pain in her low back with radiating symptoms down her right leg. Patient did have limited range of motion of her lumbar spine today with a positive right leg raise and decreased sensation to light touch and decreased reflexes. I have discussed with the patient that she may benefit from repeat right transforaminal epidural steroid injection. Risk and benefits were discussed with patient and she would like to proceed forward with this plan of care. Patient is not currently on any blood thinners. I have counseled the patient that I will order her compounded cream and change her prescription to [place] 10 mg 3 times a day and provide a 1 month supply of this medication. Patient will be scheduled for a right transforaminal epidural steroid injection L4-L5 and L5-S1 under fluoroscopy. Patient did previously have 60 to 70% improvement with this injection lasting longer than a month. Risks and benefits of the medication have been explained in detail to the patient. The patient does understand the risk of dependence on the medication when given over a prolonged period. Patient has been advised of risks of oversedation with the prescribed medication. Narcan has been offered to the paitent in the event of oversedation. Patient has been advised that a family member should also be educated regarding administration of Narcan. The patient has been advised to consult with his/her primary care provider and pharmacist regarding drug-drug interaction of medications currently prescribed. Patient has been prescribed a controlled substance after being counseled on the medication, medication safety, and possible side effects. Opioid contract was reviewed and signed by the patient, and that they have agreed to all of the terms set forth by our compliance program. Patient has been instructed to contact the clinic with any concerns before the next appointment. Dr. Savage has reviewed this note and agrees with this plan of care. This note was dictated using voice recognition software and make contain errors or omissions. [facility] Disclaimer: The information contained in this section may have been updated after the patient was seen, as this information can be updated by other users. Medical History Abnormal EKG Angina pectoris Anxiety Arrhythmia CHF (congestive heart failure) Coronary artery disease Depression Dizziness Dyspnea Edema GERD (gastroesophageal reflux disease) HTN (hypertension) Hyperlipidemia Lung disease Myocardial infarction Normal colonoscopy Obesity Palpitations Sinus bradycardia Surgical History H/O arthroscopy of left knee History of arthroscopy of right shoulder Hx of cardiac cath Family History Other No significant family history Social History Smoking Status: Former smoker tobacco type: cigarettes packs per day: 1 second hand exposure: No alcohol intake: never substance use type: denies use current occupational status: other Travel in the last 8 weeks: None household members: spouse housing: house 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
[2023-07-06 14:52] LABS: Amphetamine/Metha Screen,Urine Negative ng/ml (<1000); Barbiturates Screen,Urine Negative ng/ml (<200)
[2023-07-06 14:54] LABS: Cannabinoid Screen,Urine Negative ng/ml (<50); Cocaine Screen,Urine Negative ng/ml (<300)
[2023-07-06 14:55] LABS: Methadone Screen,Urine Negative ng/ml (<300); Opiate Screen,Urine Positive ng/ml (<300)
[2023-07-06 15:51] LABS: Benzodiazepines Screen,Urine Negative ng/ml (<200)
[2023-07-06 16:11] LABS: Phencyclidine Screen,Urine Negative ng/ml (<25)
[2023-07-10 19:09] LABS: Codeine Negative (Cutoff=100); Hydrocodone Positive (.); Hydromorphone Positive (.); Morphine Negative (Cutoff=100); Opiates Positive (.)
== END | disposition home or self-care (01) ==
PROVIDERS: PCP Nurse Practitioner Family; Visit Provider Nurse Practitioner Family
DX: Z79.891 Long term (current) use of opiate analgesic (principal); M51.16 Intervertebral disc disorders with radiculopathy, lumbar region; G89.4 Chronic pain syndrome; M79.604 Pain in right leg
CPT/HCPCS: 80307; 80361; 80365; 99212; G0463; G0480

== ENCOUNTER 2023-07-24 15:58 | Outpatient (CLI) | payer MEDICARE, MEDICAID, SELFPAY ==
--- NOTE | 2023-07-24 15:59 | MM_ITS ---
PROCEDURE INFORMATION: Exam: MG Bilateral Screening 3D Mammography Exam date and time: 07/24/2023 3:50 PM Age: 57 years old Clinical indication: Screening examination TECHNIQUE: Imaging protocol: Bilateral Screening tomosynthesis and 2D mammography including computer-aided detection (CAD) when performed. COMPARISON: 1. MG MM DIG SCREENING MAMM BI W/CAD 07/11/2022 4:23 PM 2. MG MM DIG SCREENING MAMM BI W/CAD 05/03/2021 3:55 PM FINDINGS: MAMMOGRAPHY: Breast composition: The breasts are almost entirely fatty. Mass: None. Architectural distortion: None. Calcifications: No suspicious calcifications. Asymmetric density: None. Skin thickening: None. Axillary adenopathy: None. IMPRESSION: No mammographic evidence of malignancy. Annual screening is recommended unless otherwise clinically indicated. ASSESSMENT: BI-RADS Category 1: Negative
== END 2023-07-24 23:59 ==
LOC: RAD 15:59
PROVIDERS: PCP Nurse Practitioner Family; Visit Provider Nurse Practitioner Family
DX: Z12.31 Encounter for screening mammogram for malignant neoplasm of breast (principal)
CPT/HCPCS: 77063; 77067

== ENCOUNTER 2023-08-01 09:23 | Day surgery (SDC) | payer MEDICARE, MEDICAID, SELFPAY ==
[2023-08-01 09:44] VITALS: BP 115/60; PULSE 84; RESP 18; TEMP 36.6; O2SAT 100; BMI 43.2
--- NOTE | 2023-08-01 09:58 | P.PCN_ITS ---
Procedure Date: 08/01/23 Time: 09:50 Anesthesiologist:: Live Romero CRNA Complications:: None Pre-procedure Diagnosis:: Degenerative disc disease lumbar spine with lumbar radiculopathy symptoms. Post-procedure Diagnosis:: Same Indications for Procedure:: Patient is a pleasant 57-year-old female comes to clinic today for a right transforaminal epidural steroid injection at the L4-5 and L5-S1 level. Patient has had significant improvement terms of her overall right low lumbar back pain as well as right hip and leg radicular symptoms with previous injection same level. She rates her pain today 7/10. She describes right leg radiculopathy as constant, dull, aching. Procedure Details:: Details of the procedure were explained to the patient. The patient was taken the procedure room placed in the prone position. The area of the lumbar spine was cleansed using chlorhexidine as a cleansing solution. At this time using fluoroscopy guidance markers were placed on the right lateral border of the L4 and L5 vertebral body. The skin and subcutaneous tissue was anesthetized using 1% lidocaine and 25-gauge needle. At this time using a 22-gauge 3-1/2 inch spinal needle the right upper one third of the L4-5 foramen was accessed. The same was done at the right L5-S1 foramen. Needle positions were confirmed and a lateral view using fluoroscopy and contrast dye. At this time 1 cc of 1% lidocaine +20 mg of Depo-Medrol was injected at each level after negative aspiration. [place] were removed. Band-Aid applied. Patient tolerated the procedure without difficulty. There are no complications. Plan and Disposition:: Patient was discharged without incident.
[2023-08-01] MEDS: LIDOCAINE 1% 5ML PF VIAL 5 ML (10:00)
[2023-08-01 10:02] VITALS: BP 127/74; PULSE 64; RESP 18; O2SAT 99
[2023-08-01 10:06] VITALS: BP 125/69; BP 127/74; PULSE 62; PULSE 64; RESP 18; O2SAT 100; O2SAT 99
== END 2023-08-01 10:06 | disposition home or self-care (01) ==
PROVIDERS: PCP Nurse Practitioner Family; Visit Provider Nurse Anesthetist, Certified Registered
DX: M51.16 Intervertebral disc disorders with radiculopathy, lumbar region (principal)
CPT/HCPCS: 64483; 64484; J1030

== ENCOUNTER 2023-08-17 10:58 | Outpatient (POV) | payer MEDICARE, MEDICAID, SELFPAY ==
[2023-08-17 11:00] VITALS: BP 130/68; PULSE 65; RESP 16; O2SAT 100; BMI 43.2
--- NOTE | 2023-08-17 11:39 | XR_ITS ---
FINAL REPORT CLINICAL HISTORY: RT HIP PAIN COMPARISON: None FINDINGS: An AP view of the pelvis and a frog leg views of the right hip were obtained. There is no prior exam for comparison. There is no acute fracture or dislocation. Moderate degenerative change is present. There is a prominent superior acetabulum and a bump on the lateral femoral head at the junction with the neck, consistent with mixed femoral acetabular impingement. Soft tissues are within normal limits. IMPRESSION: No acute osseous abnormality of the right hip. 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 Reviewed, Interpreted and Dictated by Chapo Obrien III, MD Transcribed by Mary Ashton Authenticated and [facility]
--- NOTE | 2023-08-17 11:40 | XR_ITS ---
FINAL REPORT CLINICAL HISTORY: RT HIP PAIN COMPARISON: None FINDINGS: 5 views of the lumbar spine were obtained. There is no evidence of fracture or dislocation. Mild and moderate degenerative changes are present. There is mild anterolisthesis of L4 on L5. Moderate vascular calcifications are present. Facet osteoarthropathy is present. Disc spaces are preserved. No paraspinous soft tissue abnormalities identified. IMPRESSION: Degenerative changes, mild and moderate, as described above. No acute bony abnormality is identified. Reviewed, Interpreted and Dictated by Chapo Obrien III, MD Transcribed by Mary Ashton Authenticated and . [facility]
--- NOTE | 2023-08-17 12:19 | A.OFFVIS_ITS ---
[facility] Pain Management SOAP Note Subjective:: Patient is a pleasant 57-year-old female who presents today for follow-up of a right transforaminal epidural steroid injection L4-5 and L5-S1 on 08/01/2023. Today she rates her pain a 10 out of 10. Patient denies any new trauma or injury. She does state that for 1 week this injection did provide 60 to 70% relief however she is back to her baseline. Patient states that she continues to have pain that radiates down from her low back into her entire right leg. Patient does state the pain is constant and interferes with her ability perform activities of daily living such as cooking and cleaning. Patient is managed with [place] 10 mg 3 times a day however she states that she felt like this was too strong and is asking for a decrease. Patient is also prescribed compounded cream and she states that it does help some. Patient does also asked today regarding her [employer] stimulator device whether or not if we can get in contact with the international representative that her cord is very loose and needs to be replaced. Her Anatoly has been reviewed and is appropriate. Review of Systems: General: No recent weight changes, no fever, no sleep disturbances Respiratory: No cough, no shortness of air, no recurring pulmonary infections Cardiovascular/peripheral vascular: No chest pain, no palpitations, no edema, no shortness of breath Gastrointestinal: No new onset incontinence, normal bowel movements reported Genitourinary: No new onset incontinence Musculoskeletal: Low back pain, right leg pain, right hip pain Psychiatric: [Normal mood/affect] Neurological: [Denies weakness in extremities], [denies balance issues] Objective:: Physical Exam: General: Alert and oriented x3, no acute distress, pleasant and cooperative Lungs: Respirations even and unlabored, symmetrical chest expansion Eyes: PERRL Musculoskeletal: Flexion and extension of lumbar [spine] somewhat guarded secondary to pain, [antalgic gait noted] Neurological: Speech clear, no gross sensory deficit Assessment:: Degenerative disc disease of lumbar spine with lumbar radiculopathy symptoms, chronic pain syndrome right hip pain, right leg pain, chronic pain syndrome Plan:: Patient continues to experience significant pain from her low back down into her right lower extremity. I discussed with the patient that it may be beneficial to order x-ray imaging of her lumbar spine and right hip as well as proceed forward with an MRI without contrast of her lumbar spine at a later date. Patient agrees with this plan of care. I will also contact [employer] international representative to get in contact with the patient to see about replacing her cord for her device. I will send in a prescription of [place] 7.5 mg 3 times a day and provide a 1 month supply of this medication. I will also change her naproxen 500 mg twice daily to ibuprofen 800 mg 3 times daily as needed and provide a 1 month supply of this medication. Patient will return to clinic in 1 month for reevaluation of symptoms and plan of care. Risks and benefits of the medication have been explained in detail to the patient. The patient does understand the risk of dependence on the medication when given over a prolonged period. Patient has been advised of risks of oversedation with the prescribed medication. Narcan has been offered to the paitent in the event of oversedation. Patient has been advised that a family member should also be educated regarding administration of Narcan. The patient has been advised to consult with his/her primary care provider and pharmacist regarding drug-drug interaction of medications currently prescribed. Patient has been prescribed a controlled substance after being counseled on the medication, medication safety, and possible side effects. Opioid contract was reviewed and signed by the patient, and that they have agreed to all of the terms set forth by our compliance program. Patient has been instructed to contact the clinic with any concerns before the next appointment. Dr. Savaeg has reviewed this note and agrees with this plan of care. This note was dictated using voice recognition software and make contain errors or omissions. [facility] Disclaimer: The information contained in this section may have been updated after the patient was seen, as this information can be updated by other users. Medical History Abnormal EKG Angina pectoris Anxiety Arrhythmia CHF (congestive heart failure) Coronary artery disease Depression Dizziness Dyspnea Edema GERD (gastroesophageal reflux disease) HTN (hypertension) Hyperlipidemia Lung disease Myocardial infarction Normal colonoscopy Obesity Palpitations Sinus bradycardia Surgical History H/O arthroscopy of left knee History of arthroscopy of right shoulder Hx of cardiac cath Family History Other No significant family history Social History Smoking Status: Former smoker tobacco type: cigarettes packs per day: 1 second hand exposure: No alcohol intake: never substance use type: denies use current occupational status: other Travel in the last 8 weeks: None household members: spouse housing: house 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
== END 2023-08-17 23:59 | disposition home or self-care (01) ==
PROVIDERS: PCP Nurse Practitioner Family; Visit Provider Nurse Practitioner Family
DX: M51.16 Intervertebral disc disorders with radiculopathy, lumbar region (principal); G89.4 Chronic pain syndrome; M25.551 Pain in right hip; M79.604 Pain in right leg
CPT/HCPCS: 72110; 73502; 99212; G0463

== ENCOUNTER 2023-08-25 12:22 | Outpatient (CLI) | payer MEDICARE, MEDICAID, SELFPAY ==
[2023-08-25 12:55] LABS: Basophils # 0.2 K/mm3 (0-0.2); Basophils % 1.5 % (0.1-2.0); Eosinophils # 0.2 K/mm3 (0.0-0.4); Eosinophils % 1.8 % (0.1-12.0); Hematocrit 41.5 % (37.0-47.0); Hemoglobin 13.6 g/dL (12.2-16.2); Lymphocytes # 4.3 K/mm3 (0.7-4.5); Lymphocytes % 42.8 % (10-50); Mean Corpuscular HGB Conc 32.7 g/dL (31.8-35.4); Mean Corpuscular Hemoglobin 30.5 pg (27.0-31.2); Mean Corpuscular Volume 93.4 fl (81-99); Mean Platelet Volume 8.4 fl (7.4-10.4); Monocytes # 0.4 K/mm3 (0.1-1.0); Platelet Count 247 K/mm3 (142-424); Red Blood Count 4.44 M/mm3 (4.20-5.40); Red Cell Distribution Width 14.2 % (11.5-17.5)
[2023-08-25 13:21] LABS: Alanine Aminotransferase 14 U/L (12-78); Alkaline Phosphatase 75 U/L (38-126); Aspartate Amino Transferase 25 U/L (14-36); Bilirubin,Total 0.5 mg/dl (0.2-1.3); Blood Urea Nitrogen 16 mg/dl (7-17); Carbon Dioxide 30 mmol/L (22.0-30.0); Estimated Glomerular Filt Rate 74 ml/min (>60); GFR (African American) 90 ML/MIN (>60); Uric Acid 5.7 mg/dl (2.5-6.2)
[2023-08-25 13:30] LABS: NT Pro Brain Natriuretic Pep. 734 pg/mL (0-125)
--- NOTE | 2023-08-25 13:30 | CA_ITS ---
FINAL REPORT TECHNIQUE: Bilateral lower extremity venous duplex was performed with augmentation and compression. CLINICAL HISTORY: lower leg pain, edema,obesity,PT ON ASA COMPARISON: None FINDINGS: Proper flow is seen throughout the deep venous systems bilaterally. There is no evidence of deep venous thrombosis. IMPRESSION: No evidence of deep venous thrombosis. Reviewed, Interpreted and Dictated by Jason Khalil MD Transcribed by Darlene Fragoso Authenticated and [facility]
[2023-08-25 13:52] LABS: Thyroid Stimulating Hormone 1.39 uIU/mL (0.465-4.68)
[2023-08-25 15:21] LABS: Albumin Level 4.2 g/dl (3.5-5.0); Albumin/Globulin Ratio 1.8 (1.1-1.8); Anion Gap 10.3 mEq/L (5-15); Calcium 9.8 mg/dl (8.4-10.2); Chloride 106 mmol/L (98-107); Globulin 2.4 g/dL (1.3-3.2); Glucose 95 mg/dl (74-100); Potassium 4.3 mmoL/L (3.5-5.1); Sodium 142 mmol/L (136-145); Total Protein,Serum 6.6 g/dl (6.3-8.2)
== END 2023-08-25 23:59 | disposition home or self-care (01) ==
PROVIDERS: PCP Nurse Practitioner Family; Visit Provider Nurse Practitioner Family
DX: R60.0 Localized edema; M25.50 Pain in unspecified joint; M79.89 Other specified soft tissue disorders; M79.604 Pain in right leg; M79.605 Pain in left leg
CPT/HCPCS: 36415; 80053; 83880; 84443; 84550; 85025; 93970

== ENCOUNTER 2023-08-28 10:32 | Outpatient (CLI) | payer MEDICARE, MEDICAID, SELFPAY ==
--- NOTE | 2023-08-28 10:54 | XR_ITS ---
FINAL REPORT TECHNIQUE: Chest PA & Lateral CLINICAL HISTORY: CHF COMPARISON: 05/17/2023 FINDINGS: 2 views of the chest were performed. The heart size is normal. Sternotomy wires are present. There is no acute cardiopulmonary process. There are no pleural effusions. There is no pneumothorax. The bony thorax appears intact. IMPRESSION: No acute cardiopulmonary process. Reviewed, Interpreted and Dictated by Jason Khalil MD Transcribed by Darlene Fragoso Authenticated and [facility]
[2023-08-28 11:12] LABS: Basophils # 0.2 K/mm3 (0-0.2); Basophils % 1.9 % (0.1-2.0); Eosinophils # 0.2 K/mm3 (0.0-0.4); Eosinophils % 2.3 % (0.1-12.0); Hematocrit 43.2 % (37.0-47.0); Hemoglobin 13.9 g/dL (12.2-16.2); Lymphocytes # 3.6 K/mm3 (0.7-4.5); Lymphocytes % 41.1 % (10-50); Mean Corpuscular HGB Conc 32.2 g/dL (31.8-35.4); Mean Corpuscular Hemoglobin 30.3 pg (27.0-31.2); Mean Platelet Volume 8.5 fl (7.4-10.4); Monocytes # 0.4 K/mm3 (0.1-1.0); Monocytes % 4.6 % (1.7-9.3); Neutrophils # 4.3 K/mm3 (1.8-7.8); Platelet Count 237 K/mm3 (142-424); Red Blood Count 4.59 M/mm3 (4.20-5.40); Red Cell Distribution Width 13.7 % (11.5-17.5); White Blood Count 8.7 K/mm3 (4.8-10.8)
[2023-08-28 11:46] LABS: Chloride 104 mmol/L (98-107); Potassium 4.2 mmoL/L (3.5-5.1); Sodium 137 mmol/L (136-145)
[2023-08-28 11:49] LABS: Alanine Aminotransferase 15 U/L (12-78); Albumin Level 3.9 g/dl (3.5-5.0); Albumin/Globulin Ratio 1.6 (1.1-1.8); Alkaline Phosphatase 75 U/L (38-126); Anion Gap 7.2 mEq/L (5-15); Aspartate Amino Transferase 23 U/L (14-36); Bilirubin,Total 0.5 mg/dl (0.2-1.3); Blood Urea Nitrogen 26 mg/dl (7-17); Carbon Dioxide 30 mmol/L (22.0-30.0); Estimated Glomerular Filt Rate 65 ml/min (>60); GFR (African American) 79 ML/MIN (>60); Globulin 2.4 g/dL (1.3-3.2); Total Protein,Serum 6.3 g/dl (6.3-8.2)
[2023-08-28 11:50] LABS: Calcium 9.4 mg/dl (8.4-10.2); Glucose 99 mg/dl (74-100)
[2023-08-28 11:59] LABS: NT Pro Brain Natriuretic Pep. 364 pg/mL (0-125)
== END 2023-08-28 23:59 | disposition home or self-care (01) ==
LOC: LAB 10:33
PROVIDERS: PCP Nurse Practitioner Family; Visit Provider Nurse Practitioner Family
DX: I50.9 Heart failure, unspecified (principal); M79.89 Other specified soft tissue disorders; R06.02 Shortness of breath; R06.09 Other forms of dyspnea; R05.9 Cough, unspecified
CPT/HCPCS: 36415; 71046; 80053; 83880; 85025

== ENCOUNTER 2023-09-01 17:06 | Outpatient (CLI) | payer MEDICARE, MEDICAID, SELFPAY ==
--- NOTE | 2023-09-01 17:09 | MR_ITS ---
FINAL REPORT CLINICAL HISTORY: LOW BACK PAIN. bilateral leg pain, numbness and tingling. no injury or trauma FINDINGS: Multiplanar MR imaging of the lumbar spine was performed without contrast. On the sagittal T2-weighted images, multilevel disc degeneration is seen. The vertebral alignment is normal. A hemangioma is noted within the T11 vertebra. There is no evidence of fracture. No bony mass is identified. The conus is seen at approximately the L1 level and has an unremarkable appearance. T11-12: Unremarkable. T12-L1: Unremarkable. L1-2: There is no significant canal stenosis or neural foraminal narrowing. L2-3: There is no significant canal stenosis or neural foraminal narrowing. L3-4: There is a minimal annular disc bulge without significant canal stenosis or neural foraminal narrowing. L4-5: Minimal annular disc bulge with moderate facet arthropathy. There is mild central canal stenosis. L5-S1: No focal disc protrusion. Moderate facet arthropathy without significant central canal stenosis or neuroforaminal narrowing. IMPRESSION: Significant facet arthropathy of the lower lumbar spine with minimal degenerative canal stenosis at L4-5. Reviewed, Interpreted and Dictated by Eyal Quinones MD Transcribed by Lanny Drew Authenticated and [facility]
== END 2023-09-01 23:59 | disposition home or self-care (01) ==
LOC: RAD 17:07
PROVIDERS: PCP Nurse Practitioner Family; Visit Provider Nurse Practitioner Family
DX: M54.50 Low back pain, unspecified
CPT/HCPCS: 72148; 76376

== ENCOUNTER 2023-09-04 15:52 | Outpatient (CLI) | payer MEDICARE, MEDICAID, SELFPAY ==
[2023-09-04 17:22] LABS: Alanine Aminotransferase 17 U/L (12-78); Albumin Level 4.2 g/dl (3.5-5.0); Albumin/Globulin Ratio 1.8 (1.1-1.8); Alkaline Phosphatase 69 U/L (38-126); Anion Gap 9.6 mEq/L (5-15); Aspartate Amino Transferase 25 U/L (14-36); Bilirubin,Total 0.5 mg/dl (0.2-1.3); Blood Urea Nitrogen 28 mg/dl (7-17); Calcium 9.3 mg/dl (8.4-10.2); Carbon Dioxide 28 mmol/L (22.0-30.0); Chloride 104 mmol/L (98-107); Estimated Glomerular Filt Rate 52 ml/min (>60); GFR (African American) 62 ML/MIN (>60); Globulin 2.4 g/dL (1.3-3.2); Glucose 88 mg/dl (74-100); Potassium 3.6 mmoL/L (3.5-5.1); Sodium 138 mmol/L (136-145); Total Protein,Serum 6.6 g/dl (6.3-8.2)
[2023-09-07 01:20] LABS: Magnesium,RBC 5.9 mg/dL (3.7-7.0)
== END 2023-09-04 23:59 | disposition home or self-care (01) ==
LOC: LAB 15:53
PROVIDERS: PCP Nurse Practitioner Family; Visit Provider Nurse Practitioner Family
DX: R25.2 Cramp and spasm (principal)
CPT/HCPCS: 36415; 80053; 83735

== ENCOUNTER 2023-09-08 11:30 | Outpatient (POV) | payer MEDICARE, MEDICAID, SELFPAY ==
[2023-09-08 12:02] VITALS: BP 108/52; PULSE 59; RESP 16; O2SAT 99; BMI 43.2
--- NOTE | 2023-09-08 12:09 | EXP.PAIN.SOA ---
[facility] Pain Management SOAP Note Subjective:: Patient is a pleasant 57-year-old female who presents today for MRI follow-up and medication refill. Today she rates her pain a 6 out of 10. Patient denies any new trauma or injury. She does state that she feels like her last transforaminal injection has officially worn off. Patient does states she feels like she is having a little bit more pain in and around her buttocks with the left side being worse than the right. Patient states that this is an aching, throbbing sensation that is aggravated with prolonged sitting or standing. Patient does state the pain interferes with her ability perform activities of daily living such as cooking and cleaning. Patient does state that she is interested in any help we may be able to provide regarding this. Patient is currently managed with [place] 7.5 mg 3 times a day. At our last visit we did give a 1 month supply of ibuprofen however she states she does not take this on a regular basis due to her heart related issues. Patient did also state that she needed her Zynex stimulator cord replaced at our last visit and she states that the sales solutions representative did reach out and get this taken care of. Patient states that the new device works better than even her old one. Her Anatoly has been reviewed and is appropriate. Review of Systems: General: No recent weight changes, no fever, no sleep disturbances Respiratory: No cough, no shortness of air, no recurring pulmonary infections Cardiovascular/peripheral vascular: No chest pain, no palpitations, no edema, no shortness of breath Gastrointestinal: No new onset incontinence, normal bowel movements reported Genitourinary: No new onset incontinence Musculoskeletal: Low back pain, bilateral hip pain, buttocks pain Psychiatric: [Normal mood/affect] Neurological: [Denies weakness in extremities], [denies balance issues] Objective:: Physical Exam: General: Alert and oriented x3, no acute distress, pleasant and cooperative Lungs: Respirations even and unlabored, symmetrical chest expansion Eyes: PERRL Musculoskeletal: Flexion and extension of lumbar [spine] somewhat guarded secondary to pain, [antalgic gait noted] point tenderness along bilateral SIs with positive bilateral Jesus Alberto's, Sravanthi's, Gaenslen's, compression and distraction exam Neurological: Speech clear, no gross sensory deficit Assessment:: Degenerative disc disease of lumbar spine with lumbar radiculopathy symptoms, right hip pain, right leg pain, chronic pain syndrome, bilateral sacroiliitis Plan:: Patient is experiencing worsening pain in her low back and bilateral hips with limited range of motion of her lumbar spine. I have discussed with the patient due to her point tenderness along her bilateral SIs and a positive bilateral Jesus Alberto's, Sravanthi's, Gaenslen's, compression and distraction exam that she may benefit from a bilateral SI injection. Risk and benefits were discussed with the patient and she would like to proceed forward with this plan of care. I will refill the patient's [place] 7.5 mg 3 times a day. I have counseled the patient due to her heart related issues it is not good for her to take the ibuprofen on a regular basis and to really minimize even using it at all. Patient acknowledges understanding and agrees with this plan of care. We will not send any refills of the ibuprofen today. Patient will be scheduled for bilateral SI injections under fluoroscopy. Patient has tried and failed conservative therapy including continued at home exercising and stretching for longer than 12 weeks. Risks and benefits of the medication have been explained in detail to the patient. The patient does understand the risk of dependence on the medication when given over a prolonged period. Patient has been advised of risks of oversedation with the prescribed medication. Narcan has been offered to the paitent in the event of oversedation. Patient has been advised that a family member should also be educated regarding administration of Narcan. The patient has been advised to consult with his/her primary care provider and pharmacist regarding drug-drug interaction of medications currently prescribed. Patient has been prescribed a controlled substance after being counseled on the medication, medication safety, and possible side effects. Opioid contract was reviewed and signed by the patient, and that they have agreed to all of the terms set forth by our compliance program. Patient has been instructed to contact the clinic with any concerns before the next appointment. Dr. Savage has reviewed this note and agrees with this plan of care. This note was dictated using voice recognition software and make contain errors or omissions. [facility] Disclaimer: The information contained in this section may have been updated after the patient was seen, as this information can be updated by other users. Medical History Edema Angina pectoris Normal colonoscopy Myocardial infarction Lung disease Depression CHF (congestive heart failure) Arrhythmia Anxiety Dizziness HTN (hypertension) Coronary artery disease Sinus bradycardia Obesity Abnormal EKG Dyspnea Palpitations GERD (gastroesophageal reflux disease) Hyperlipidemia Surgical History Hx of cardiac cath History of arthroscopy of right shoulder H/O arthroscopy of left knee Family History Other No significant family history Social History Smoking Status: Former smoker tobacco type: cigarettes packs per day: 1 second hand exposure: No alcohol intake: never substance use type: denies use current occupational status: other Travel in the last 8 weeks: None household members: spouse housing: house 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
== END 2023-09-08 23:59 | disposition home or self-care (01) ==
PROVIDERS: PCP Nurse Practitioner Family; Visit Provider Nurse Practitioner Family
DX: M51.16 Intervertebral disc disorders with radiculopathy, lumbar region (principal); M25.551 Pain in right hip; M79.604 Pain in right leg; G89.4 Chronic pain syndrome; M46.1 Sacroiliitis, not elsewhere classified
CPT/HCPCS: 99212; G0463

== ENCOUNTER 2023-09-11 13:32 | Outpatient (CLI) | payer MEDICARE, MEDICAID, SELFPAY ==
--- NOTE | 2023-09-11 13:33 | CA_ITS ---
APPROVED REPORT EXAM: Comprehensive 2D, Doppler, and color-flow Echocardiogram Hydrometer Calibrator: Keena Sheldon RDCS Ht: 5 ft 5 in Wt: 260lbs BSA: 2.21 BP: 114/67 mmHg Indications: SOA,CAD,CHF,HTN,HLP M-Mode Dimensions RVDd 2.45 cm (0.9-2.6) LA Diam 4.76 cm (1.9-4.0) LVDd 5.54 cm (3.5-5.7) LVDs 3.98 cm (3.5-5.7) IVSd 0.80 cm (0.6-1.1) PWd 1.24 cm (0.6-1.1) EF (Teich) 53.80% FS 28.20% EDV (Teich) 149.90 mL TAPSE 2.58 (<1.7) ESV (Teich) 69.20 mL LV Diastology E Decel Time 233 (160-240 msec) E/A Ratio 1.5 Mitral Valve MV E Max Kong. 97.0 (40-130 cm/s) MV A Velocity 64.0 (40-130 cm/s) E/A Ratio 1.52 MV PHT 68.0 ms Left Ventricle The left ventricle is normal size. The left ventricular systolic function is normal. The left ventricular ejection fraction is within the normal range. There is normal left ventricular wall thickness. There is normal LV segmental wall motion. The left ventricular diastolic function is normal. LVEF is 55%. Right Ventricle The right ventricle is normal size. The right ventricular systolic function is normal. Atria The left atrium size is normal. The right atrium size is normal. There is no Doppler evidence of interatrial shunt. Aortic Valve The aortic valve opens well. There is no aortic valvular stenosis. No aortic regurgitation is present. Mitral Valve The mitral valve is normal in structure. No evidence of mitral valve stenosis. Trace mitral regurgitation. Tricuspid Valve The tricuspid valve leaflets are thin and pliable. Trace tricuspid regurgitation. RVSP is normal. Pulmonic Valve The pulmonary valve is normal in structure. Trace pulmonic regurgitation. Great Vessels The aortic root is normal in size. The ascending aorta is normal in size. IVC is normal in size and collapses >50% with inspiration. Pericardium There is no pericardial effusion. Other Information Study Quality: Fair Conclusion Normal biventricular systolic function. No significant valvular stenosis or regurgitation. Electronically signed by : Kacie Witt MD 09/15/2023 00:46:09
== END 2023-09-11 23:59 | disposition home or self-care (01) ==
LOC: RT 13:33
PROVIDERS: PCP Nurse Practitioner Family; Visit Provider Nurse Practitioner Family
DX: R06.00 Dyspnea, unspecified (principal); I25.10 Atherosclerotic heart disease of native coronary artery without angina pectoris; R94.31 Abnormal electrocardiogram [ECG] [EKG]
CPT/HCPCS: 93306

== ENCOUNTER 2023-09-26 10:52 | Day surgery (SDC) | payer MEDICARE, MEDICAID, SELFPAY ==
[2023-09-26 11:09] VITALS: BP 101/73; PULSE 60; RESP 18; TEMP 36.6; O2SAT 98; BMI 43.2
[2023-09-26] MEDS: BUPIVACAINE 0.25% 10ML INJ 25 MG IJ (11:20)
[2023-09-26] MEDS: LIDOCAINE 1% 5ML PF VIAL 5 ML (11:20)
[2023-09-26] MEDS: methylPREDNISolone ACETATE 80MG/ML VIAL 80 MG (11:20)
[2023-09-26 11:21] VITALS: BP 117/48; PULSE 59; RESP 18; O2SAT 96
[2023-09-26 11:22] VITALS: BP 117/48; PULSE 59; RESP 18; O2SAT 96
--- NOTE | 2023-09-26 11:25 | P.PCN_ITS ---
Procedure Date: 09/26/23 Time: 11:20 Anesthesiologist:: Live Romero CRNA Complications:: None Pre-procedure Diagnosis:: Bilateral sacroiliitis Post-procedure Diagnosis:: Same Indications for Procedure:: Patient is a pleasant 58-year-old female comes our clinic today for bilateral sacroiliac joint injections cortisone. Patient describes low back pain off the midline bilaterally as well as bilateral posterior hip pain. She reports having difficulty transitioning from sitting to standing. She rates her pain 7/10. Procedure Details:: Procedure: Bilateral sacroiliac joint injections under fluoroscopy Informed consent was obtained and the risks and benefits of the procedure were explained to the patient.~ The patient was taken to the procedure room and noninvasive monitors were placed including a noninvasive blood pressure cuff and pulse oximeter.~ The patient was placed prone on the procedure table. Both hips were cleansed using Betadine as a cleansing solution. C-arm fluoroscopy was used to view the right sacroiliac joint.~ The skin and subcutaneous tissues were anesthetized using lidocaine 1.5% and a 25-gauge needle.~ After this, a 22-gauge spinal needle was inserted under fluoroscopic guidance into the inferior aspect of the right sacroiliac joint.~ Omnipaque dye was injected and good spread was seen throughout the joint.~ After this, approximately 5 mL of bupivacaine, 0.25% and Depo-Medrol, 40 mg was incrementally injected into the right sacroiliac joint. We then moved to the left sacroiliac joint.~ The skin and subcutaneous tissues were anesthetized using lidocaine 1.5% and a 25-gauge needle.~ After this, a 22- gauge spinal needle was inserted under fluoroscopic guidance into the inferior aspect of the left sacroiliac joint.~ Omnipaque dye was injected and good spread was seen throughout the joint. After this, approximately 5 mL of bupivacaine, 0.25% and Depo-Medrol, 40 mg was incrementally injected into the left sacroiliac joint.~ The patient tolerated the procedure well with no complications. The patient was observed in the Pain Clinic and then was discharged home neurologically intact. Plan and Disposition:: Patient was discharged without incident.
[2023-09-26 11:32] VITALS: BP 123/58; PULSE 56; RESP 18; O2SAT 98
== END 2023-09-26 11:34 | disposition home or self-care (01) ==
PROVIDERS: PCP Nurse Practitioner Family; Visit Provider Nurse Anesthetist, Certified Registered
DX: M46.1 Sacroiliitis, not elsewhere classified (principal)
CPT/HCPCS: 27096; G0260; J1010

== ENCOUNTER 2023-10-10 18:00 | Outpatient (CLI) | payer MEDICARE, MEDICAID, SELFPAY ==
[2023-10-10 13:14] LABS: Basophils # 0.1 K/mm3 (0-0.2); Basophils % 0.7 % (0.1-2.0); Eosinophils # 0.2 K/mm3 (0.0-0.4); Eosinophils % 1.6 % (0.1-12.0); Hematocrit 40.8 % (37.0-47.0); Hemoglobin 13.8 g/dL (12.2-16.2); Lymphocytes # 3.6 K/mm3 (0.7-4.5); Lymphocytes % 35.1 % (10-50); Mean Corpuscular HGB Conc 33.8 g/dL (31.8-35.4); Mean Corpuscular Volume 91.6 fl (81-99); Mean Platelet Volume 9.1 fl (7.4-10.4); Monocytes # 0.5 K/mm3 (0.1-1.0); Monocytes % 4.5 % (1.7-9.3); Neutrophils # 5.9 K/mm3 (1.8-7.8); Platelet Count 253 K/mm3 (142-424); Red Blood Count 4.46 M/mm3 (4.20-5.40); Red Cell Distribution Width 14.3 % (11.5-17.5); White Blood Count 10.2 K/mm3 (4.8-10.8)
[2023-10-10 13:55] LABS: Alanine Aminotransferase 18 U/L (12-78); Albumin Level 4.1 g/dl (3.5-5.0); Albumin/Globulin Ratio 1.5 (1.1-1.8); Alkaline Phosphatase 72 U/L (38-126); Anion Gap 12.1 mEq/L (5-15); Aspartate Amino Transferase 31 U/L (14-36); Bilirubin,Total 0.5 mg/dl (0.2-1.3); Blood Urea Nitrogen 23 mg/dl (7-17); Calcium 9.4 mg/dl (8.4-10.2); Carbon Dioxide 25 mmol/L (22.0-30.0); Chloride 105 mmol/L (98-107); Estimated Glomerular Filt Rate 65 ml/min (>60); GFR (African American) 78 ML/MIN (>60); Globulin 2.7 g/dL (1.3-3.2); Glucose 93 mg/dl (74-100); Magnesium 1.8 mg/dl (1.6-2.3); Potassium 4.1 mmoL/L (3.5-5.1); Sodium 138 mmol/L (136-145); Total Protein,Serum 6.8 g/dl (6.3-8.2)
== END 2023-10-10 23:59 | disposition home or self-care (01) ==
LOC: LAB.DROPOF 10-11 10:32
PROVIDERS: PCP Nurse Practitioner Family; Visit Provider Nurse Practitioner Family
DX: R35.0 Frequency of micturition (principal); M54.9 Dorsalgia, unspecified; R10.9 Unspecified abdominal pain; R25.2 Cramp and spasm
CPT/HCPCS: 80053; 83735; 85025; 87086

== ENCOUNTER 2023-10-16 11:28 | Outpatient (POV) | payer MEDICARE, MEDICAID, SELFPAY ==
[2023-10-16 11:54] VITALS: BP 116/58; PULSE 58; RESP 18; TEMP 36.7; O2SAT 98; BMI 41.6
--- NOTE | 2023-10-16 11:57 | A.OFFVIS_ITS ---
[facility] Pain Management SOAP Note Subjective:: Patient is a pleasant 58-year-old female who presents today for follow-up of bilateral SI injections. Today she rates her pain an 8 out of 10. Patient states that these injections do normally help however this set seem to be very painful and overall caused aggravated symptoms. Patient states that she is very stiff in the mornings and that the pain radiates across to her back and into her buttocks. Patient denies any radiating symptoms into her legs. Patient is currently managed with [place] 7.5 mg 3 times a day. Her Anatoly has been reviewed and is appropriate. Review of Systems: General: No recent weight changes, no fever, no sleep disturbances Respiratory: No cough, no shortness of air, no recurring pulmonary infections Cardiovascular/peripheral vascular: No chest pain, no palpitations, no edema, no shortness of breath Gastrointestinal: No new onset incontinence, normal bowel movements reported Genitourinary: No new onset incontinence Musculoskeletal: Low back pain, buttocks pain Psychiatric: [Normal mood/affect] Neurological: [Denies weakness in extremities], [denies balance issues] Objective:: Physical Exam: General: Alert and oriented x3, no acute distress, pleasant and cooperative Lungs: Respirations even and unlabored, symmetrical chest expansion Eyes: PERRL Musculoskeletal: Flexion and extension of lumbar [spine] somewhat guarded secondary to pain, [antalgic gait noted] Neurological: Speech clear, no gross sensory deficit Assessment:: Degenerative disc disease of lumbar spine with lumbar radiculopathy symptoms, right hip pain, sacroiliitis, chronic pain syndrome Plan:: I have discussed with the patient due to her worsening pain I will send a prescription of lidocaine patches and also refill her [place] 7.5 mg 3 times a day and provide a 1 month supply of this medication. Patient will return to clinic in 1 month for reevaluation of symptoms and plan of care. Risks and benefits of the medication have been explained in detail to the patient. The patient does understand the risk of dependence on the medication when given over a prolonged period. Patient has been advised of risks of oversedation with the prescribed medication. Narcan has been offered to the paitent in the event of oversedation. Patient has been advised that a family member should also be educated regarding administration of Narcan. The patient has been advised to consult with his/her primary care provider and pharmacist regarding drug-drug interaction of medications currently prescribed. Patient has been prescribed a controlled substance after being counseled on the medication, medication safety, and possible side effects. Opioid contract was reviewed and signed by the patient, and that they have agreed to all of the terms set forth by our compliance program. Patient has been instructed to contact the clinic with any concerns before the next appointment. Dr. Savage has reviewed this note and agrees with this plan of care. This note was dictated using voice recognition software and make contain errors or omissions. [facility] Disclaimer: The information contained in this section may have been updated after the patient was seen, as this information can be updated by other users. Medical History Edema Angina pectoris Normal colonoscopy Myocardial infarction Lung disease Depression CHF (congestive heart failure) Arrhythmia Anxiety Dizziness HTN (hypertension) Coronary artery disease Sinus bradycardia Obesity Abnormal EKG Dyspnea Palpitations GERD (gastroesophageal reflux disease) Hyperlipidemia Surgical History Hx of cardiac cath History of arthroscopy of right shoulder H/O arthroscopy of left knee Family History Other No significant family history Social History Smoking Status: Former smoker tobacco type: cigarettes packs per day: 1 second hand exposure: No alcohol intake: never substance use type: denies use current occupational status: other Travel in the last 8 weeks: None household members: spouse housing: house 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
== END 2023-10-16 23:59 | disposition home or self-care (01) ==
PROVIDERS: PCP Nurse Practitioner Family; Visit Provider Nurse Practitioner Family
DX: M46.1 Sacroiliitis, not elsewhere classified (principal); M51.16 Intervertebral disc disorders with radiculopathy, lumbar region; M25.551 Pain in right hip; G89.4 Chronic pain syndrome
CPT/HCPCS: 36415; 99212; G0463

== ENCOUNTER 2023-10-16 17:04 | Outpatient (CLI) | payer MEDICARE, MEDICAID, SELFPAY ==
[2023-10-16 17:02] LABS: Microscopic, Urine URINE MICROSCOPIC (MICROSCOPIC)
[2023-10-16 17:29] LABS: Appearance,Urine CLEAR (Clear); Bilirubin,Urine Negative (Negative); Blood, Urine Negative (Negative); Color,Urine YELLOW (Yellow); Glucose,Urine (UA) Negative (Negative); Ketones,Urine Negative (Negative); Leukocyte Esterase,Urine Negative (Negative); Nitrate,Urine Negative (Negative); Protein,Urine Negative (Negative); Urobilinogen,Urine 0.2 EU/dl (0.2)
[2023-10-16 17:47] LABS: Bacteria,Urine Trace /lpf; WBC,Urine Occasional #/hpf (0-3)
== END 2023-10-16 23:59 | disposition home or self-care (01) ==
LOC: LAB.DROPOF 17:04
PROVIDERS: PCP Nurse Practitioner Family; Visit Provider Nurse Practitioner Family
DX: R30.0 Dysuria (principal); M51.16 Intervertebral disc disorders with radiculopathy, lumbar region; M25.551 Pain in right hip; M46.1 Sacroiliitis, not elsewhere classified; G89.4 Chronic pain syndrome
CPT/HCPCS: 36415; 81001; 87086; 99212; G0463

== ENCOUNTER 2023-10-24 14:00 | Outpatient (RCR) | payer MEDICARE, MEDICAID, SELFPAY ==
--- NOTE | 2023-08-09 15:47 | HMH.PTOPWND ---
Rehab Outpt Wound Evaluation Rehab OP Wound Evaluation Start: 08/09/23 15:33 Freq: Status: Active Protocol: Document 08/09/23 15:36 PHODARY (Rec: 08/09/23 15:47 PHORIRENE [id number]) E-signed By Trino Grajeda, PT Subjective/History History History This is the initial PT eval for Mela Carmona, 57 yowf who presents with c/o increased B LE edema x ~ 2-3 mos. She has hx of Chronic B LE lymphedema and severe CVI. She reports her edema is worse with prolonged dependent positioning. She also reports using her lymphedem home pump daily, but my compression is just worn out. She has PMH of CAD with stents and TX, CHF, HTN, HLD, anxiety, depression. Subjective Subjective She reports 7/10 pain at this time B lower legs. 2/4 TTP noted to B LE gaiter area. Minimal pitting edema noted, but severe varicose veins throughout B LE. New diagnosis of cancer in past 12 No months? Lymphedema Eval Classification of Lymphedema Secondary Lymphedema Yes Stemmer's sign Stemmer's Sign no Stage of Lymphedema Lymphedema stages Stage II (Pitting edema, increased fibrosis w/ decreased pitting) Skin Changes Dry Skin Yes Skin Folds Yes Redness Yes Discoloration of Skin Yes Other Changes Yes Pain Scale Pain Scale (0-10) 7 Affected Extremities Areas Affected by Lymphedema/Edema Right Lower Extremity,Left Lower Extremity Lower Extremity Measurements Right MTP Measurement (cm) 23.7 Heel Measurement (cm) 33.1 10 cm Proximal to Lateral Malleoli 33.9 Measurement (cm) 20 cm Proximal to Lateral Malleoli 43.4 Measurement (cm) 30 cm Proximal to Lateral Malleoli 49.5 Measurement (cm) 40 cm Proximal to Lateral Malleoli 50.8 Measurement (cm) 50 cm Proximal to Lateral Malleoli 61.0 Measurement (cm) 60 cm Proximal to Lateral Malleoli 0 Measurement (cm) Lower Extremity Measurement Total (cm) 295.4 Left MTP Measurement (cm) 24.2 Heel Measurement (cm) 32.5 10 cm Proximal to Lateral Malleoli 31.2 Measurement (cm) 20 cm Proximal to Lateral Malleoli 41.2 Measurement (cm) 30 cm Proximal to Lateral Malleoli 51.3 Measurement (cm) 40 cm Proximal to Lateral Malleoli 51.2 Measurement (cm) 50 cm Proximal to Lateral Malleoli 57.3 Measurement (cm) 60 cm Proximal to Lateral Malleoli 0 Measurement (cm) Lower Extremity Measurement Total (cm) 288.9 Manual Lymphatic Drainage Treatment Area MLD Treatment Area Right Lower Extremity,Left Lower Extremity Wound Problems/Impairments Impairments Problems/Impairmments Palpation Tenderness,Impaired Strength,Impaired Endurance, Impaired Walking,Impaired Standing,Impaired Household Care,Impaired Recreational Activities,Increased Edema, Lymphedema Present,Subjective C/O Pain,Impaired Self Care/ Self Management Prognosis Rehab Potential Good Clinical Impression Consistent with Diagnosis Yes Short Term Goals Number of Weeks 2 Decreased Palpation Tenderness Yes: 1 B lower legs Decrease Subjective C/O Pain Yes: 09/14 B LE Patient to Understand Lymphedema Yes Treatment and Exercises Decrease Girth Measurments by (cm) Yes: B LE total by 5 cm ea Director Selection And Administration Goals Number of Weeks 4 Decreased Palpation Tenderness Yes: 0/4 B lower legs Improve Ability For Household Care Yes Decrease Lymphedema Yes Decrease Subjective C/O Pain Yes: 07/15 Patient to be Ind w/ Advanced HEP Yes Patient to be Ind w/ [place] Yes Compression Garments Patient to Adhere Lymphedema Precautions Yes Decrease Girth Measurments by (cm) Yes: B LE total by 15 cm ea Outpatient Therapy Plan of Care Treatment Plan May Include Therapeutic Exercise Including Home Yes Exercise Program Manual Therapy Techniques Yes Neuromuscular Re-education Yes Therapeutic Activities to Return to Yes Previous Functional/Work Level ADL/Self Care Education Yes Orthotics/Bracing/Splinting Yes Vasopneumatic Compression Pump Yes Manual Lymphatic Drainage Yes Eval/Re-Eval Yes Frequency Times per week 2 Duration Number of Weeks 4 Addendums This patient is a candidate for social No or vocational rehab? Patient/Guardian verbally acknowledges Yes understanding of treatment program and consents to further treatment? Patient/Guardian verbally acknowledges Yes understanding of diagnosis, prognosis and goals for treatment? Eval Complexity PT Charges 01764 - High Complexity PHYSICIAN CERTIFICATION: I certify the specified therapy services for Mela Carmona are required, authorized, and reviewed every 30 days.
--- NOTE | 2023-09-12 15:06 | HMH.RHREAS ---
Rehab Reassessment Rehab OP Re-assessment Start: 08/09/23 15:33 Freq: Status: Active Protocol: Document 09/12/23 14:59 PHORNE (Rec: 09/12/23 15:05 PHORNE Laptop) E-signed By Trino Grajeda, PT Rehab Re-assessment Subjective Subjective Pt reports, My legs aren't as heavy as they were, I feel a lot better and I can walk around easier. Pain is overall decreased as is tenderness to palpation. Functional mobility is improved. Objective Objective Notes Circumferential measurements: R LE total is 289.9 cm which is -5.5 cm since IE. L LE total is 283.2 cm which is -5.7 cm since IE. Pain: 4/10 at worst in B LE. TTP: 1/4 in B lower legs. Assessment Progress Assessment Progressing as Expected Assessment Notes Pt has shown significant reduction in total edema in B LE. She has improved functional mobility and less discomfort with ADLs. She continues to need skilled intervention to return to prior level of function. Patient goals met ST LT Goals Not Met LT/8 Plan Plan Continue per initial POC. Frequency of Therapy 1-2 x/wk Duration of therapy 4 wks Time and Billing Re-Eval Time 11 Re-Eval Billing Units 1 PHYSICIAN CERTIFICATION: I certify the specified therapy services for Mela Carmona are required, authorized, and reviewed every 30 days.
--- NOTE | 2023-10-24 15:13 | HMH.RHREAS ---
Rehab Reassessment Rehab OP Re-assessment Start: 08/09/23 15:33 Freq: Status: Active Protocol: Document 10/24/23 14:58 JACKELYN (Rec: 10/24/23 15:12 JACKELYN [id number]) E-signed By Roly Logan, PT Rehab Re-assessment Subjective Subjective Pt reports extended absence from skilled P.T. d/t 'getting on the schedule here', and reports 'swelling and pain might be a little worse since we checked it last time.' Pt reports 8/10 bilateral LE pain on VAS over the last ~week, however, pt also reports able to execute household activities, complying w/HEP, and lymphedema precautions. Objective Objective Notes Circumferential measurements: R LE total is 296.1 cm which is +0.7 cm since IE. L LE total is 290.5 cm which is +1.6 cm since IE. Pain: 8/10 at worst in B LE. TTP: 2-3/4 in B lower legs. Assessment Progress Assessment Slower Than Expected Assessment Notes d/t 17 days since last skilled P.T. appt pt realized some regression w/bilateral LE swelling and pain. Pt strongly advised to try to obtain more visits over the next ~3-4 weeks for optimal function and objective progress related to lymphedema POC. Despite those aforementioned regressions pt was able to execute more LTG' s since last reassessment related to HEP, household function, and precautions. Patient goals met ST/4 LT Goals Not Met LTG'S 09/12 Plan Plan Continue per POC w/extension to provide more skilled P.T. care d/t absence caused by scheduling difficulties and d/ t objective regression. Frequency of Therapy 1-2x/wk Duration of therapy 3-5wks Time and Billing Re-Eval Time 14 Re-Eval Billing Units 1 PHYSICIAN CERTIFICATION: I certify the specified therapy services for Mela Carmona are required, authorized, and reviewed every 30 days.
== END 2023-10-24 14:05 | disposition home or self-care (01) ==
LOC: PT 14:00
PROVIDERS: Visit Provider Nurse Practitioner Family
DX: I89.0 Lymphedema, not elsewhere classified (principal)
CPT/HCPCS: 97140; 97163; 97164

== ENCOUNTER 2023-12-06 13:20 | Outpatient (POV) | payer MEDICARE, SELFPAY ==
[2023-12-06 14:17] VITALS: BP 115/62; PULSE 56; RESP 18; O2SAT 95; BMI 41.9
--- NOTE | 2023-12-06 14:34 | A.OFFVIS_ITS ---
[facility] Disclaimer: The information contained in this section may have been updated after the patient was seen, as this information can be updated by other users. Medical History Edema Angina pectoris Normal colonoscopy Myocardial infarction Lung disease Depression CHF (congestive heart failure) Arrhythmia Anxiety Dizziness HTN (hypertension) Coronary artery disease Sinus bradycardia Obesity Abnormal EKG Dyspnea Palpitations GERD (gastroesophageal reflux disease) Hyperlipidemia Surgical History Hx of cardiac cath History of arthroscopy of right shoulder H/O arthroscopy of left knee Family History Other No significant family history Social History Smoking Status: Former smoker tobacco type: cigarettes packs per day: 1 second hand exposure: No alcohol intake: never substance use type: denies use current occupational status: other Travel in the last 8 weeks: None household members: spouse housing: house current occupation: [employer] current occupational exposures/hazards: No caffeine: Yes PM Subjective & Objective Subjective Subjective:: Patient is a pleasant 58-year-old female who presents today for medication refill and follow-up. Patient rates her pain today a 7 out of 10. Patient denies any new trauma or injury. She does state that she still is experiencing pain in and around her buttocks area along the left side. Patient does state that she feels like this pain is different but is still the same as when she saw us last. She is describes it as a aching, throbbing sensation that radiates outward and that is more prominent at night. Patient states that she frequently tosses and turns and does not get good sleep due to the pain. She states it is interfering with her ability perform activities of daily living such as cooking and cleaning. Patient is currently managed with Holstein 7.5 mg 3 times a day from our office and has been recently given a prescription of baclofen 10 mg from an outside provider. Her Anatoly has been reviewed and is appropriate. Review of Systems: General: No recent weight changes, no fever, no sleep disturbances Respiratory: No cough, no shortness of air, no recurring pulmonary infections Cardiovascular/peripheral vascular: No chest pain, no palpitations, no edema, no shortness of breath Gastrointestinal: No new onset incontinence, normal bowel movements reported Genitourinary: No new onset incontinence Musculoskeletal: Buttock/tailbone pain Psychiatric: [Normal mood/affect] Neurological: [Denies weakness in extremities], [denies balance issues] Pain at rest (0-10 scale): 7 Objective Objective:: Physical Exam: General: Alert and oriented x3, no acute distress, pleasant and cooperative Lungs: Respirations even and unlabored, symmetrical chest expansion Eyes: PERRL Musculoskeletal: Flexion and extension of sacrum [spine] somewhat guarded secondary to pain, [antalgic gait noted] point tenderness along the left side of her sacral spine Neurological: Speech clear, no gross sensory deficit Has patient had previous pain injection?: No Conservative treatment options previously tried: Home exercise plan Length of treatment: Longer than 6 weeks and Prescription medications Length of treatment: Longer than 6 weeks Meds Home Medications and Allergies Home Medications ?Medication ?Instructions ?Recorded ?Confirmed ?Type aspirin 81 mg tablet,delayed 81 mg PO DAILY #30 tabs 02/08/23 12/06/23 Rx release (Adult Aspirin Regimen) albuterol sulfate 2.5 mg/3 mL 2.5 mg (3 mL) inhalation Q4-6H PRN 05/15/23 12/06/23 Rx (0.083 %) solution for nebulization shortness of breath or wheezing #90 mL albuterol sulfate 90 mcg/actuation 1 inh inhalation Q6H PRN . 05/15/23 12/06/23 History aerosol inhaler (Ventolin HFA) budesonide-formoterol HFA 160 2 inh inhalation BID Asthma 90 07/07/23 12/06/23 Rx mcg-4.5 mcg/actuation aerosol days #3 ea inhaler ibuprofen 800 mg tablet 800 mg PO TID PRN pain #90 tabs 08/17/23 12/06/23 Rx metoprolol succinate 25 mg 12.5 mg (1/2 x 25 mg) PO DAILY #45 08/23/23 12/06/23 Rx tablet,extended release 24 hr tabs furosemide 20 mg tablet 20 mg PO BID Fluid 30 days #60 tabs 08/25/23 12/06/23 Rx magnesium sulfate 100 mg capsule 100 mg PO DAILY #30 caps 09/28/23 12/06/23 Rx esomeprazole magnesium 40 mg 40 mg PO DAILY #30 caps 10/10/23 12/06/23 Rx capsule,delayed release hydrocodone 7.5 mg-acetaminophen 1 tab PO TID #90 tabs 10/16/23 12/06/23 Rx 325 mg tablet baclofen 10 mg tablet 10 mg PO Q8H 30 days #90 tabs 10/25/23 12/06/23 Rx famotidine 20 mg tablet See Rx Instructions .Route 11/24/23 12/06/23 Rx .COMPLEX #30 tabs ondansetron 4 mg disintegrating 4 mg PO Q8H PRN nausea and 11/24/23 12/06/23 Rx tablet vomiting #30 tabs ropinirole 0.5 mg tablet 0.5 mg PO HS 30 days #30 tabs 11/24/23 12/06/23 Rx venlafaxine 150 mg 150 mg PO DAILY 30 days #30 caps 11/24/23 12/06/23 Rx capsule,extended release 24 hr New Prescriptions to Start Prescriptions: Allergies Allergy/AdvReac Type Severity Reaction Status Date / Time clopidogrel [From Plavix] Allergy Severe NON Verified 11/24/23 13:15 RESPONDER-STENT THROMBOSIS atorvastatin AdvReac Intermediate Abdominal Verified 11/24/23 13:15 Pain Assessment and Plan *Assessment and plan (1) Left buttock pain: Status: Acute Category: Medical Code(s): M79.18 - Myalgia, other site (2) Coccygeal pain: Status: Acute Category: Medical Code(s): M53.3 - Sacrococcygeal disorders, not elsewhere classified Plan Patient has been experiencing more buttocks/tailbone pain over the last couple of months with point tenderness along the left side of her sacrum. I did discuss with the patient that since she is experiencing more pain at night that I would recommend she take her baclofen and [place] at bedtime to see if this helps her get more adequate sleep. Patient states that in the past she has not yet tried taking these medications at bedtime together. Patient was also counseled if this pain continues that she may benefit from a caudal epidural. We will follow-up with this at future visits. I will refill the patient's Holstein and provide a 1 month supply of this medication. Patient will return to clinic in 2 weeks for reevaluation of symptoms and plan of care. Risks and benefits of the medication have been explained in detail to the patient. The patient does understand the risk of dependence on the medication when given over a prolonged period. Patient has been advised of risks of oversedation with the prescribed medication. Narcan has been offered to the paitent in the event of oversedation. Patient has been advised that a family member should also be educated regarding administration of Narcan. The patient has been advised to consult with his/her primary care provider and pharmacist regarding drug-drug interaction of medications currently prescribed. Patient has been prescribed a controlled substance after being counseled on the medication, medication safety, and possible side effects. Opioid contract was reviewed and signed by the patient, and that they have agreed to all of the terms set forth by our compliance program. Patient has been instructed to contact the clinic with any concerns before the next appointment. Dr. Savage has reviewed this note and agrees with this plan of care. This note was dictated using voice recognition software and make contain errors or omissions.
== END 2023-12-06 23:59 | disposition home or self-care (01) ==
PROVIDERS: PCP Nurse Practitioner Family; Visit Provider Nurse Practitioner Family
DX: M79.18 Myalgia, other site (principal); M53.3 Sacrococcygeal disorders, not elsewhere classified
CPT/HCPCS: 99212; G0463

== ENCOUNTER 2023-12-19 16:22 | Outpatient (CLI) | payer MEDICARE, SELFPAY | END 2023-12-19 23:59 | disposition home or self-care (01) | LOC: LAB.DROPOF 12-20 13:22 | PROVIDERS: PCP Nurse Practitioner Family; Visit Provider Nurse Practitioner Family | DX: R05.1 Acute cough (principal) | CPT/HCPCS: 87635 ==

== ENCOUNTER 2023-12-29 11:08 | Outpatient (CLI) | payer MEDICARE, SELFPAY ==
[2023-12-29 11:34] LABS: Basophils # 0.1 K/mm3 (0-0.2); Basophils % 1.5 % (0.1-2.0); Eosinophils # 0.3 K/mm3 (0.0-0.4); Eosinophils % 2.7 % (0.1-12.0); Hematocrit 44.6 % (37.0-47.0); Hemoglobin 14.5 g/dL (12.2-16.2); Lymphocytes # 4.3 K/mm3 (0.7-4.5); Lymphocytes % 45.8 % (10-50); Mean Corpuscular HGB Conc 32.5 g/dL (31.8-35.4); Mean Corpuscular Hemoglobin 30.5 pg (27.0-31.2); Mean Platelet Volume 8.9 fl (7.4-10.4); Monocytes # 0.5 K/mm3 (0.1-1.0); Monocytes % 5.5 % (1.7-9.3); Neutrophils # 4.2 K/mm3 (1.8-7.8); Neutrophils % 44.4 % (37.0-80.0); Platelet Count 216 K/mm3 (142-424); Red Blood Count 4.75 M/mm3 (4.20-5.40); Red Cell Distribution Width 13.4 % (11.5-17.5); White Blood Count 9.4 K/mm3 (4.8-10.8)
[2023-12-29 12:42] LABS: Alanine Aminotransferase 15 U/L (12-78); Albumin Level 3.6 g/dl (3.5-5.0); Alkaline Phosphatase 72 U/L (38-126); Anion Gap 7.5 mEq/L (5-15); Aspartate Amino Transferase 23 U/L (14-36); Bilirubin,Indirect 0.8 mg/dL (0.0-0.9); Bilirubin,Total 0.8 mg/dl (0.2-1.3); Bilirubin,Unconjugated 0.8 mg/dL (0.0-1.1); Blood Urea Nitrogen 18 mg/dl (7-17); Calcium 9.1 mg/dl (8.4-10.2); Carbon Dioxide 28 mmol/L (22.0-30.0); Chloride 107 mmol/L (98-107); Chol/HDL Ratio 4.5 (1-3.5); Cholesterol 276 mg/dl (140-200); Estimated Glomerular Filt Rate 74 ml/min (>60); GFR (African American) 90 ML/MIN (>60); Glucose 88 mg/dl (74-100); HDL Cholesterol 61 mg/dl (40-60); Magnesium 1.8 mg/dl (1.6-2.3); Potassium 4.5 mmoL/L (3.5-5.1); Sodium 138 mmol/L (136-145); Total Protein,Serum 6.2 g/dl (6.3-8.2); Triglycerides 136 mg/dl (30-150); VLDL Cholesterol 27 mg/dL (0-40)
[2023-12-29 12:52] LABS: Direct LDL Cholesterol 177.95 mg/dL (100-129)
[2023-12-29 12:58] LABS: Free T4 (Free Thyroxine) 1.49 ng/dl (0.78-2.19)
[2023-12-29 13:12] LABS: Thyroid Stimulating Hormone 1.09 uIU/mL (0.465-4.68)
== END 2023-12-29 23:59 | disposition home or self-care (01) ==
LOC: LAB 11:09
PROVIDERS: PCP Nurse Practitioner Family; Visit Provider Physician Assistant
DX: R60.0 Localized edema (principal); I10 Essential (primary) hypertension; I25.10 Atherosclerotic heart disease of native coronary artery without angina pectoris; T82.867A Thrombosis due to cardiac prosthetic devices, implants and grafts, initial encounter; R00.1 Bradycardia, unspecified; E66.01 Morbid (severe) obesity due to excess calories; Z68.41 Body mass index [BMI] 40.0-44.9, adult; R94.31 Abnormal electrocardiogram [ECG] [EKG]; R06.00 Dyspnea, unspecified; R00.2 Palpitations; K21.9 Gastro-esophageal reflux disease without esophagitis; E78.5 Hyperlipidemia, unspecified
CPT/HCPCS: 36415; 80048; 80061; 80076; 83735; 84439; 84443; 85025

== ENCOUNTER 2024-01-05 11:36 | Emergency (ER) | payer MEDICARE, SELFPAY ==
--- NOTE | 2024-01-05 11:48 | XR_ITS ---
FINAL REPORT CLINICAL HISTORY: pain lateral side COMPARISON: 03/03/2023 FINDINGS: LEFT FOOT Three views of the left foot demonstrate no acute fracture or dislocation. There is a large plantar spur. A moderate Joy deformity is noted. There is an os perineum best seen on the oblique view measuring 1.2 cm. The soft tissues are unremarkable. IMPRESSION: 1.2 cm os perineum. Correlate with nature of clinical symptoms. Reviewed, Interpreted and Dictated by Jason Khalil MD Transcribed by Darlene Fragoso Authenticated and [facility]
[2024-01-05 12:05] VITALS: BP 135/72; PULSE 62; RESP 19; TEMP 36.8; O2SAT 97; BMI 40.7
--- NOTE | 2024-01-05 12:27 | EXP.UTC ---
Discharge Plan Disposition Patient Disposition: Home, Self-Care Condition: Good Prescriptions Prescriptions: No Action furosemide 40 mg tablet 40 mg PO DAILY venlafaxine 75 mg capsule,extended release 24hr 75 mg PO DAILY famotidine 20 mg tablet 20 mg PO DAILY esomeprazole magnesium 40 mg capsule,delayed release(DR/EC) 40 mg PO DAILY ropinirole 0.5 mg tablet 0.5 mg PO DAILY metoprolol succinate 25 mg tablet extended release 24 hr 25 mg PO DAILY naproxen 500 mg tablet 500 mg PO DAILY rosuvastatin 10 mg tablet 10 mg PO DAILY Trelegy Ellipta 100-62.5-25 mcg blister with device 1 inh INHALATION DAILY Wegovy 0.25 mg/0.5 mL pen injector 0.25 mg SQ WEEKLY Referrals Follow up/Referrals: Angeles Hartman APRN [Primary Care Provider] - See instructions Cassie Mccollum APRN [Nurse Practitioner] - See instructions Linsey Infante DPM [Staff Physician] - See instructions Activity Restrictions/Add. Instructions Additional Instructions/Restrictions: *weight bearing as tolerated Use the walking boot you had from home and walker to get around *RICE, Rest the extremity, Ice 15-20 minutes 3-4 times daily, Compress- wear the dyan wrap as discussed as much as possible to help reduce swelling and pain, Elevate the extremity when at rest *Elevate when resting? *Ibuprofen 600-800mg every 6-8 hours as needed for pain an inflammation if you can take it. If need something more can take Tylenol in between doses of Ibuprofen to help Immediately follow up with your family doctor for new or worsening of symptoms, or no noticeable improvement over the next 3-5 days Call Podiatry office for appointment Clinical Impressions Clinical Impression: Foot pain Instructions Patient Instructions: How To Perform RICE (Rest, Ice, Compress, Elevate), How to Choose and Use a Walker Print Language Print Language: [place] Irish Discharge ED Provider: Kelsy Doshi [facility] General Stated complaint: left foot pain Mode of Arrival: Ambulatory Source of Information: Patient Limitations: No Limitations Time Seen by Provider: 01/05/24 12:27 Description of Symptoms (Recalled from Triage Doc. by RN): PATIENT C/O INJURY TO LEFT FOOT. SHE STATES SHE WAS WALKING 2 DAYS AND HER FOOT GAVE. SHE REPORTS BURNING/STABBING PAIN TO LEFT FOOT AND INABILITY TO PUT MUCH PRESSURE ON IT HEENT Symptoms (Recalled from RN notes): No Resp Symptoms (Recalled from RN notes): No Skin Symptoms (Recalled from RN notes): No MS Symptoms (Recalled from RN notes): Yes Functional Status (Recalled from RN notes): WNL History of Present Illness Provider Complaint: Patient states that a couple days ago she was walking and her let foot kind of give out and rolled and since she has been having pain in the middle of her foot and along the side and hurts when she tries to put weight on it so today she came in to get checked Related Data Home Medications ?Medication ?Instructions ?Recorded ?Confirmed esomeprazole magnesium 40 mg 40 mg PO DAILY 01/05/24 01/05/24 capsule,delayed release famotidine 20 mg tablet 20 mg PO DAILY 01/05/24 01/05/24 fluticasone fur. 100 mcg-umeclid 1 inh inhalation DAILY 01/05/24 01/05/24 62.5 mcg-vilant 25 mcg inhalat.powder (Trelegy Ellipta) furosemide 40 mg tablet 40 mg PO DAILY 01/05/24 01/05/24 metoprolol succinate 25 mg 25 mg PO DAILY 01/05/24 01/05/24 tablet,extended release 24 hr naproxen 500 mg tablet 500 mg PO DAILY 01/05/24 01/05/24 ropinirole 0.5 mg tablet 0.5 mg PO DAILY 01/05/24 01/05/24 rosuvastatin 10 mg tablet 10 mg PO DAILY 01/05/24 01/05/24 semaglutide (weight loss) 0.25 0.25 mg SQ WEEKLY 01/05/24 01/05/24 mg/0.5 mL subcutaneous pen injector (Tara) venlafaxine 75 mg capsule,extended 75 mg PO DAILY 01/05/24 01/05/24 release 24 hr Allergies Allergy/AdvReac Type Severity Reaction Status Date / Time clopidogrel [From Plavix] Allergy Severe NON Verified
[2024-01-05 13:11] VITALS: BP 135/72; PULSE 62; RESP 19; TEMP 36.8; O2SAT 97
== END 2024-01-05 13:13 | disposition home or self-care (01) ==
PROVIDERS: Emergency Provider Nurse Practitioner; PCP Nurse Practitioner Family
DX: M79.672 Pain in left foot (principal)
CPT/HCPCS: 73630; 99203; 99212; G0463

== ENCOUNTER 2024-01-22 13:25 | Outpatient (POV) | payer MEDICARE, SELFPAY ==
--- NOTE | 2024-01-22 14:46 | A.OFFVIS_ITS ---
[facility] Disclaimer: The information contained in this section may have been updated after the patient was seen, as this information can be updated by other users. Medical History Edema Angina pectoris Normal colonoscopy Myocardial infarction Lung disease Depression CHF (congestive heart failure) Arrhythmia Anxiety Dizziness HTN (hypertension) Coronary artery disease Sinus bradycardia Obesity Abnormal EKG Dyspnea Palpitations GERD (gastroesophageal reflux disease) Hyperlipidemia Surgical History Hx of cardiac cath History of arthroscopy of right shoulder H/O arthroscopy of left knee Family History Other No significant family history Social History Smoking Status: Former smoker tobacco type: cigarettes packs per day: 1 second hand exposure: No alcohol intake: never substance use type: denies use current occupational status: other Travel in the last 8 weeks: None household members: spouse housing: house current occupation: [employer] current occupational exposures/hazards: No caffeine: Yes PM Subjective & Objective Subjective Subjective:: Patient is a pleasant 58-year-old female who presents today for medication refill and follow-up. Today she rates her pain a 8 out of 10. Patient denies any new trauma or injury. Patient does state from her last visit she did end up trying the muscle relaxer in half but still felt like it caused significant drowsiness to where she could not tolerate it. Patient is currently managed with [place] 7.5 mg 3 times daily. She denies any side effects from this medication. Patient at her last visit had also talked about her buttocks and tailbone area being very painful and had tenderness with palpation. She does state today that that is much better. Her Anatoly has been reviewed and is appropriate. Review of Systems: General: No recent weight changes, no fever, no sleep disturbances Respiratory: No cough, no shortness of air, no recurring pulmonary infections Cardiovascular/peripheral vascular: No chest pain, no palpitations, no edema, no shortness of breath Gastrointestinal: No new onset incontinence, normal bowel movements reported Genitourinary: No new onset incontinence Musculoskeletal: Low back pain Psychiatric: [Normal mood/affect] Neurological: [Denies weakness in extremities], [denies balance issues] Pain at rest (0-10 scale): 8 Objective Objective:: Physical Exam: General: Alert and oriented x3, no acute distress, pleasant and cooperative Lungs: Respirations even and unlabored, symmetrical chest expansion Eyes: PERRL Musculoskeletal: Flexion and extension of lumbar [spine] somewhat guarded secondary to pain, [antalgic gait noted] Neurological: Speech clear, no gross sensory deficit Has patient had previous pain injection?: No Conservative treatment options previously tried: Prescription medications Length of treatment: Longer than 12 weeks Meds Home Medications and Allergies Home Medications ?Medication ?Instructions ?Recorded ?Confirmed ?Type famotidine 20 mg tablet 20 mg PO DAILY 01/05/24 01/11/24 History fluticasone fur. 100 mcg-umeclid 1 inh inhalation DAILY 01/05/24 01/11/24 History 62.5 mcg-vilant 25 mcg inhalat.powder (Trelegy Ellipta) furosemide 40 mg tablet 40 mg PO DAILY 01/05/24 01/11/24 History metoprolol succinate 25 mg 25 mg PO DAILY 01/05/24 01/11/24 History tablet,extended release 24 hr naproxen 500 mg tablet 500 mg PO DAILY 01/05/24 01/11/24 History ropinirole 0.5 mg tablet 0.5 mg PO DAILY 01/05/24 01/11/24 History rosuvastatin 10 mg tablet 10 mg PO DAILY 01/05/24 01/11/24 History semaglutide (weight loss) 0.25 0.25 mg SQ WEEKLY 01/05/24 01/11/24 History mg/0.5 mL subcutaneous pen injector (Nilsony) methylprednisolone 4 mg tablets in 4 mg PO PER PKG DIR #21 tabs 01/11/24 01/11/24 Rx a dose pack (Medrol (Luca)) esomeprazole magnesium 40 mg See Rx Instructions .Route 01/22/24 Rx capsule,delayed release .COMPLEX #30 caps venlafaxine 37.5 mg See Rx Instructions .Route 01/22/24 Rx capsule,extended release 24 hr .COMPLEX #30 caps New Prescriptions to Start Prescriptions: Allergies Allergy/AdvReac Type Severity Reaction Status Date / Time clopidogrel [From Plavix] Allergy Severe NON Verified 01/11/24 08:12 RESPONDER-STENT THROMBOSIS atorvastatin AdvReac Intermediate Abdominal Verified 01/11/24 08:12 Pain Assessment and Plan *Assessment and plan (1) Left hip pain: Status: Acute Category: Medical Code(s): M25.552 - Pain in left hip (2) Bilateral knee pain: Status: Acute Qualifiers: Chronicity: acute Qualified Code(s): M25.561 - Pain in right knee; M25.562 - Pain in left knee Category: Medical Code(s): M25.561 - Pain in right knee; M25.562 - Pain in left knee (3) Low back pain: Status: Acute Category: Medical Code(s): M54.50 - Low back pain, unspecified Plan We will refill the patient's [place] and provide a 1 month supply of this medication. Patient will return to clinic in 1 month for reevaluation of symptoms and plan of care. Risks and benefits of the medication have been explained in detail to the patient. The patient does understand the risk of dependence on the medication when given over a prolonged period. Patient has been advised of risks of oversedation with the prescribed medication. Narcan has been offered to the paitent in the event of oversedation. Patient has been advised that a family member should also be educated regarding administration of Narcan. The patient has been advised to consult with his/her primary care provider and pharmacist regarding drug-drug interaction of medications currently prescribed. Patient has been prescribed a controlled substance after being counseled on the medication, medication safety, and possible side effects. Opioid contract was reviewed and signed by the patient, and that they have agreed to all of the terms set forth by our compliance program. Patient has been instructed to contact the clinic with any concerns before the next appointment. Dr. Savage has reviewed this note and agrees with this plan of care. This note was dictated using voice recognition software and make contain errors or omissions.
[2024-01-22 15:33] VITALS: BP 106/65; PULSE 72; RESP 16; O2SAT 96; BMI 43.2
== END 2024-01-22 23:59 | disposition home or self-care (01) ==
PROVIDERS: PCP Nurse Practitioner Family; Visit Provider Nurse Practitioner Family
DX: M25.552 Pain in left hip (principal); M25.561 Pain in right knee; M25.562 Pain in left knee; M54.50 Low back pain, unspecified; Z95.5 Presence of coronary angioplasty implant and graft; Z96.652 Presence of left artificial knee joint; Z87.891 Personal history of nicotine dependence; Z79.899 Other long term (current) drug therapy
CPT/HCPCS: 99212; G0463

== ENCOUNTER 2024-01-23 15:15 | Outpatient (CLI) | payer MEDICARE, SELFPAY ==
[2024-01-23 16:31] LABS: Microscopic, Urine URINE MICROSCOPIC (MICROSCOPIC)
[2024-01-23 16:51] LABS: Appearance,Urine CLEAR (Clear); Bilirubin,Urine Negative (Negative); Blood, Urine Negative (Negative); Color,Urine YELLOW (Yellow); Glucose,Urine (UA) Negative (Negative); Ketones,Urine Negative (Negative); Leukocyte Esterase,Urine Negative (Negative); Nitrate,Urine Negative (Negative); PH,Urine 5.5 (5.0-8.5); Protein,Urine Negative (Negative); Specific Gravity, Urine >= 1.030 (1.005-1.030); Urobilinogen,Urine 0.2 EU/dl (0.2)
[2024-01-23 17:12] LABS: WBC,Urine Occasional #/hpf (0-3)
== END 2024-01-23 23:59 | disposition home or self-care (01) ==
LOC: LAB.DROPOF 01-24 12:37
PROVIDERS: PCP Nurse Practitioner Family; Visit Provider Nurse Practitioner Family
DX: R10.9 Unspecified abdominal pain (principal); R39.89 Other symptoms and signs involving the genitourinary system; R50.9 Fever, unspecified
CPT/HCPCS: 81001; 87086

== ENCOUNTER 2024-01-25 11:54 | Outpatient (CLI) | payer MEDICARE, SELFPAY ==
--- NOTE | 2024-01-25 11:58 | XR_ITS ---
FINAL REPORT TECHNIQUE: Chest PA & Lateral CLINICAL HISTORY: acute cough and wheezing COMPARISON: 08/28/2023 FINDINGS: 2 views of the chest were performed. The heart is mildly enlarged. Sternotomy wires are present. There is no acute cardiopulmonary process. There are no pleural effusions. There is no pneumothorax. The bony thorax appears intact. IMPRESSION: No acute cardiopulmonary process. Reviewed, Interpreted and Dictated by Jason Khalil MD Transcribed by Elvira Vincent Authenticated and [facility]
== END 2024-01-25 23:59 | disposition home or self-care (01) ==
LOC: RAD 11:55
PROVIDERS: PCP Nurse Practitioner Family; Visit Provider Nurse Practitioner Family
DX: J44.9 Chronic obstructive pulmonary disease, unspecified (principal)
CPT/HCPCS: 71046

== ENCOUNTER 2024-03-01 14:32 | Outpatient (POV) | payer MEDICARE, SELFPAY ==
--- NOTE | 2024-03-01 14:58 | EXP.PAIN.SOA ---
[facility] Disclaimer: The information contained in this section may have been updated after the patient was seen, as this information can be updated by other users. Medical History (Updated 02/21/24 @ 13:29 by Jefferson Benavidez II, MD) Foot neuroma Edema Angina pectoris Normal colonoscopy Myocardial infarction Lung disease Depression CHF (congestive heart failure) Arrhythmia Anxiety Dizziness HTN (hypertension) Coronary artery disease Sinus bradycardia Obesity Abnormal EKG Dyspnea Palpitations GERD (gastroesophageal reflux disease) Hyperlipidemia Surgical History Hx of cardiac cath History of arthroscopy of right shoulder H/O arthroscopy of left knee Family History Other No significant family history Social History Smoking Status: Former smoker tobacco type: cigarettes packs per day: 1 second hand exposure: No alcohol intake: never substance use type: denies use current occupational status: other Travel in the last 8 weeks: None household members: spouse housing: house current occupation: [employer] current occupational exposures/hazards: No caffeine: Yes PM Subjective & Objective Subjective Subjective:: Patient is a pleasant 58-year-old female who presents today for medication refill and follow-up. Today she rates her pain a 7 out of 10. She denies any new trauma or injury. She does state that she still has been having pain in along her low back towards her buttocks area but it is now more so on the left side. She does state that the pain is worse when she is laying down and in the mornings it takes time to stop and study and they seated position before she starts to get up and move around easier. Patient is currently managed with Saint Anthony 7.5 mg 3 times a day and has been tried on baclofen and tizanidine in the past however did not feel like those did as well. Patient has had compounded cream in the past and states that she does need refills on this. Her Anatoly has been reviewed and is appropriate. Review of Systems: General: No recent weight changes, no fever, no sleep disturbances Respiratory: No cough, no shortness of air, no recurring pulmonary infections Cardiovascular/peripheral vascular: No chest pain, no palpitations, no edema, no shortness of breath Gastrointestinal: No new onset incontinence, normal bowel movements reported Genitourinary: No new onset incontinence Musculoskeletal: Left low back/buttocks pain Psychiatric: [Normal mood/affect] Neurological: [Denies weakness in extremities], [denies balance issues] Pain at rest (0-10 scale): 7 Objective Objective:: Physical Exam: General: Alert and oriented x3, no acute distress, pleasant and cooperative Lungs: Respirations even and unlabored, symmetrical chest expansion Eyes: PERRL Musculoskeletal: Flexion and extension of lumbar [spine] somewhat guarded secondary to pain, [antalgic gait noted] point tenderness along left SI with positive left Jesus Alberto's, Sravanthi's, Gaenslen's, compression and distraction exam Neurological: Speech clear, no gross sensory deficit Has patient had previous pain injection?: No Conservative treatment options previously tried: Home exercise plan Length of treatment: Longer than 12 weeks Meds Home Medications and Allergies Home Medications ?Medication ?Instructions ?Recorded ?Confirmed ?Type famotidine 20 mg tablet 20 mg PO DAILY 01/05/24 02/21/24 History furosemide 40 mg tablet 40 mg PO DAILY 01/05/24 02/21/24 History rosuvastatin 10 mg tablet 10 mg PO DAILY 01/05/24 02/21/24 History esomeprazole magnesium 40 mg See Rx Instructions .Route 01/22/24 02/21/24 Rx capsule,delayed release .COMPLEX #30 caps hydrocodone 7.5 mg-acetaminophen 1 tab PO TID #90 tabs 01/22/24 02/21/24 Rx 325 mg tablet venlafaxine 37.5 mg See Rx Instructions .Route 01/22/24 02/21/24 Rx capsule,extended release 24 hr .COMPLEX #30 caps ipratropium 0.5 mg-albuterol 3 mg 3 ml inhalation Q4-6H PRN 01/23/24 02/21/24 Rx (2.5 mg base)/3 mL nebulization shortness of breath or wheezing soln #90 mL budesonide-formoterol HFA 160 See Rx Instructions .Route 01/29/24 02/21/24 Rx mcg-4.5 mcg/actuation aerosol .COMPLEX #10.2 grams inhaler (Symbicort) naproxen 500 mg tablet 500 mg PO DAILY PRN 02/08/24 02/21/24 History metoclopramide HCl 15 mg/spray 1 spray intranasal QID #9.8 mL 02/21/24 02/21/24 Rx nasal spray with pump (Gimoti) metoprolol succinate 25 mg See Rx Instructions .Route 02/22/24 Rx tablet,extended release 24 hr .COMPLEX #45 tabs ropinirole 0.5 mg tablet See Rx Instructions .Route 02/22/24 Rx .COMPLEX #30 tabs hydrocodone 7.5 mg-acetaminophen 1 tab PO TID #30 tabs 02/26/24 Rx 325 mg tablet New Prescriptions to Start Prescriptions: Allergies Allergy/AdvReac Type Severity Reaction Status Date / Time clopidogrel [From Plavix] Allergy Severe NON Verified 02/21/24 13:01 RESPONDER-STENT THROMBOSIS atorvastatin AdvReac Intermediate Abdominal Verified 02/21/24 13:01 Pain Assessment and Plan *Assessment and plan (1) Sacroiliitis: Status: Chronic Category: Medical Code(s): M46.1 - Sacroiliitis, not elsewhere classified Plan I did discuss with the patient that it does seem to be related to her SI joint and that she may benefit from injection at this area. Patient was also counseled that I will refill the patient's Saint Anthony and provide a 1 month supply of this medication along with send refills of her compounded cream and that we can try methocarbamol 500 mg 3 times daily with a 2-week supply of this medication. Patient does state at this time she would like to wait on the injection. Patient will return to clinic in 1 month for reevaluation of symptoms and plan of care. Risks and benefits of the medication have been explained in detail to the patient. The patient does understand the risk of dependence on the medication when given over a prolonged period. Patient has been advised of risks of oversedation with the prescribed medication. Narcan has been offered to the paitent in the event of oversedation. Patient has been advised that a family member should also be educated regarding administration of Narcan. The patient has been advised to consult with his/her primary care provider and pharmacist regarding drug-drug interaction of medications currently prescribed. Patient has been prescribed a controlled substance after being counseled on the medication, medication safety, and possible side effects. Opioid contract was reviewed and signed by the patient, and that they have agreed to all of the terms set forth by our compliance program. Patient has been instructed to contact the clinic with any concerns before the next appointment. Dr. Savage has reviewed this note and agrees with this plan of care. This note was dictated using voice recognition software and make contain errors or omissions.
[2024-03-01 15:11] VITALS: BP 147/75; PULSE 77; RESP 18; O2SAT 96; BMI 41.9
== END 2024-03-01 23:59 | disposition home or self-care (01) ==
PROVIDERS: PCP Nurse Practitioner Family; Visit Provider Nurse Practitioner Family
DX: M46.1 Sacroiliitis, not elsewhere classified (principal); Z87.891 Personal history of nicotine dependence
CPT/HCPCS: 99212; G0463

== ENCOUNTER 2024-03-15 08:33 | Outpatient (CLI) | payer MEDICARE, SELFPAY ==
--- NOTE | 2024-03-15 08:34 | CT_ITS ---
FINAL REPORT TECHNIQUE: Pre- and postcontrast images of the abdomen were performed by computed tomography. Coronal sagittal reconstructions were obtained and reviewed. This study was performed with techniques to keep radiation doses as low as reasonably achievable, (ALARA). Individualized dose reduction techniques using automated exposure control or adjustment of mA and/or kV according to the patient's size were employed. CLINICAL HISTORY: Periumbilical abdominal pain COMPARISON: None FINDINGS: Mild scarring is noted in the right lung base. The liver is normal in size and attenuation. The patient is status post cholecystectomy. The spleen is unremarkable. The adrenals are normal. The pancreas is unremarkable. A small right renal cyst is present. There are mild vascular calcifications. A periumbilical hernia is present containing fat only. The orifice measures 25 mm in the hernia sac measures 57 mm. Degenerative changes are noted in the lower lumbar spine. IMPRESSION: Periumbilical hernia containing fat only. Reviewed, Interpreted and Dictated by Chapo Obrien III, MD Transcribed by Darlene Fragoso Authenticated and [facility]
[2024-03-15 09:37] LABS: Alanine Aminotransferase 12 U/L (12-78); Albumin/Globulin Ratio 1.7 (1.1-1.8); Alkaline Phosphatase 62 U/L (38-126); Anion Gap 12.7 mEq/L (5-15); Aspartate Amino Transferase 19 U/L (14-36); Bilirubin,Total 0.6 mg/dl (0.2-1.3); Blood Urea Nitrogen 20 mg/dl (7-17); Calcium 9.5 mg/dl (8.4-10.2); Carbon Dioxide 24 mmol/L (22.0-30.0); Chloride 110 mmol/L (98-107); Estimated Glomerular Filt Rate 74 ml/min (>60); GFR (African American) 90 ML/MIN (>60); Globulin 2.3 g/dL (1.3-3.2); Glucose 91 mg/dl (74-100); Potassium 4.7 mmoL/L (3.5-5.1); Sodium 142 mmol/L (136-145); Total Protein,Serum 6.3 g/dl (6.3-8.2)
[2024-03-15] MEDS: SODIUM CHLORIDE 0.9% 10ML SYR (RAD ONLY) 10 ML IV (09:54)
[2024-03-15] MEDS: IOPAMIDOL-370 (76%);100ML BOTTLE 75 ML IV (09:54)
== END 2024-03-15 23:59 | disposition home or self-care (01) ==
LOC: RAD 08:34
PROVIDERS: PCP Nurse Practitioner Family; Visit Provider Internal Medicine Gastroenterology
DX: R10.33 Periumbilical pain (principal); R10.13 Epigastric pain
CPT/HCPCS: 36415; 74170; 80053; Q9967

== ENCOUNTER 2024-04-08 14:52 | Outpatient (POV) | payer MEDICARE, SELFPAY ==
[2024-04-08 15:31] VITALS: BP 112/66; PULSE 69; RESP 16; O2SAT 99; BMI 41.9
--- NOTE | 2024-04-08 15:59 | A.OFFVIS_ITS ---
[facility] Disclaimer: The information contained in this section may have been updated after the patient was seen, as this information can be updated by other users. Medical History Foot neuroma Edema Angina pectoris Normal colonoscopy Myocardial infarction Lung disease Depression CHF (congestive heart failure) Arrhythmia Anxiety Dizziness HTN (hypertension) Coronary artery disease Sinus bradycardia Obesity Abnormal EKG Dyspnea Palpitations GERD (gastroesophageal reflux disease) Hyperlipidemia Surgical History Hx of cardiac cath History of arthroscopy of right shoulder H/O arthroscopy of left knee Family History Other No significant family history Social History Smoking Status: Former smoker tobacco type: cigarettes packs per day: 1 second hand exposure: No alcohol intake: never substance use type: denies use current occupational status: other Travel in the last 8 weeks: None household members: spouse housing: house current occupation: [employer] current occupational exposures/hazards: No caffeine: Yes PM Subjective & Objective Subjective Subjective:: Patient is a pleasant 58-year-old female who presents today for medication refill and follow-up of worsening pain. Today she rates her pain an 8 out of 10. Patient denies any new trauma or injury. She does state that she is having a lot of pain in her bilateral hips. She describes it as an aching, throbbing sensation that does interfere with her ability perform activities of daily living such as cooking and cleaning. Patient states that she does frequently have to change positions due to the worsening pain and does sleep with pillows to help with her positioning. Patient is currently managed with Thom[place] 7.5 mg 3 times a day along with recently being prescribed methocarbamol however she states that this did nothing for her pain. She does state that her pain medication does seem to help but it just does not work as well as what it used to. Her Anatoly has been reviewed and is appropriate. Review of Systems: General: No recent weight changes, no fever, no sleep disturbances Respiratory: No cough, no shortness of air, no recurring pulmonary infections Cardiovascular/peripheral vascular: No chest pain, no palpitations, no edema, no shortness of breath Gastrointestinal: No new onset incontinence, normal bowel movements reported Genitourinary: No new onset incontinence Musculoskeletal: Bilateral hip pain Psychiatric: [Normal mood/affect] Neurological: [Denies weakness in extremities], [denies balance issues] Pain at rest (0-10 scale): 8 Objective Objective:: Physical Exam: General: Alert and oriented x3, no acute distress, pleasant and cooperative Lungs: Respirations even and unlabored, symmetrical chest expansion Eyes: PERRL Musculoskeletal: Flexion and extension of lumbar [spine] somewhat guarded secondary to pain, [antalgic gait noted] point tenderness along bilateral greater trochanteric bursa's Neurological: Speech clear, no gross sensory deficit Has patient had previous pain injection?: No Conservative treatment options previously tried: Home exercise plan Length of treatment: Longer than 12 weeks Meds Home Medications and Allergies Home Medications ?Medication ?Instructions ?Recorded ?Confirmed ?Type famotidine 20 mg tablet 20 mg PO DAILY 01/05/24 04/08/24 History furosemide 40 mg tablet 40 mg PO DAILY 01/05/24 04/08/24 History esomeprazole magnesium 40 mg See Rx Instructions .Route 01/22/24 04/08/24 Rx capsule,delayed release .COMPLEX #30 caps venlafaxine 37.5 mg See Rx Instructions .Route 01/22/24 04/08/24 Rx capsule,extended release 24 hr .COMPLEX #30 caps ipratropium 0.5 mg-albuterol 3 mg 3 ml inhalation Q4-6H PRN 01/23/24 04/08/24 Rx (2.5 mg base)/3 mL nebulization shortness of breath or wheezing soln #90 mL budesonide-formoterol HFA 160 See Rx Instructions .Route 01/29/24 04/08/24 Rx mcg-4.5 mcg/actuation aerosol .COMPLEX #10.2 grams inhaler (Symbicort) naproxen 500 mg tablet 500 mg PO DAILY PRN Pain 02/08/24 04/08/24 History metoprolol succinate 25 mg See Rx Instructions .Route 02/22/24 04/08/24 Rx tablet,extended release 24 hr .COMPLEX #45 tabs ropinirole 0.5 mg tablet See Rx Instructions .Route 02/22/24 04/08/24 Rx .COMPLEX #30 tabs hydrocodone 7.5 mg-acetaminophen 1 tab PO TID #90 tabs 03/01/24 04/08/24 Rx 325 mg tablet hydrocodone 7.5 mg-acetaminophen 1 tab PO QID #120 tabs 04/08/24 Rx 325 mg tablet New Prescriptions to Start Prescriptions: hydrocodone-acetaminophen Shabnam Calvin Allergies Allergy/AdvReac Type Severity Reaction Status Date / Time clopidogrel (From Plavix) Allergy Severe NON Verified 03/28/24 09:33 RESPONDER-STENT THROMBOSIS atorvastatin AdvReac Intermediate Abdominal Verified 03/28/24 09:33 Pain rosuvastatin (From Crestor) AdvReac Mild myalgia Verified 03/28/24 09:33 Assessment and Plan *Assessment and plan (1) Greater trochanteric bursitis of both hips: Status: Acute Category: Medical Code(s): M70.61 - Trochanteric bursitis, right hip; M70.62 - Trochanteric bursitis, left hip Plan Patient did have point tenderness along her bilateral bursa's during today's visit along with limited range of motion of her lumbar spine. I did discuss with the patient that I do believe that she would benefit from bilateral bursa injections. Risk and benefits were discussed with the patient and she would like to proceed forward with this plan of care. Patient has tried and failed conservative therapy including continued at home stretching exercise for longer than 12 weeks. Patient was also counseled that we will increase her Thomaston to 4 times per day and provide a 1 month supply of this medication. Patient agrees with this plan of care. Patient will be scheduled for bilateral greater trochanteric bursa injections under fluoroscopy. Risks and benefits of the medication have been explained in detail to the patient. The patient does understand the risk of dependence on the medication when given over a prolonged period. Patient has been advised of risks of oversedation with the prescribed medication. Narcan has been offered to the paitent in the event of oversedation. Patient has been advised that a family member should also be educated regarding administration of Narcan. The patient has been advised to consult with his/her primary care provider and pharmacist regarding drug-drug interaction of medications currently prescribed. Patient has been prescribed a controlled substance after being counseled on the medication, medication safety, and possible side effects. Opioid contract was reviewed and signed by the patient, and that they have agreed to all of the terms set forth by our compliance program. Patient has been instructed to contact the clinic with any concerns before the next appointment. Dr. Savage has reviewed this note and agrees with this plan of care. This note was dictated using voice recognition software and make contain errors or omissions.
== END 2024-04-08 23:59 | disposition home or self-care (01) ==
PROVIDERS: PCP Nurse Practitioner Family; Visit Provider Nurse Practitioner Family
DX: M70.61 Trochanteric bursitis, right hip (principal); M70.62 Trochanteric bursitis, left hip; Z87.891 Personal history of nicotine dependence; Z73.89 Other problems related to life management difficulty
CPT/HCPCS: 99212; G0463

== ENCOUNTER 2024-04-19 13:18 | Outpatient (CLI) | payer MEDICARE, SELFPAY ==
[2024-04-19 13:35] LABS: Basophils # 0.1 K/mm3 (0-0.2); Basophils % 1.3 % (0.1-2.0); Eosinophils # 0.2 K/mm3 (0.0-0.4); Eosinophils % 2.1 % (0.1-12.0); Hematocrit 44.6 % (37.0-47.0); Hemoglobin 15.4 g/dL (12.2-16.2); Lymphocytes # 3.4 K/mm3 (0.7-4.5); Lymphocytes % 31.9 % (10-50); Mean Corpuscular HGB Conc 34.4 g/dL (31.8-35.4); Mean Corpuscular Hemoglobin 30.8 pg (27.0-31.2); Mean Corpuscular Volume 89.4 fl (81-99); Mean Platelet Volume 8.9 fl (7.4-10.4); Monocytes # 0.4 K/mm3 (0.1-1.0); Monocytes % 3.9 % (1.7-9.3); Neutrophils # 6.5 K/mm3 (1.8-7.8); Neutrophils % 60.9 % (37.0-80.0); Platelet Count 216 K/mm3 (142-424); Red Blood Count 4.99 M/mm3 (4.20-5.40); Red Cell Distribution Width 13.7 % (11.5-17.5); White Blood Count 10.7 K/mm3 (4.8-10.8)
[2024-04-19 13:57] LABS: Chloride 107 mmol/L (98-107)
[2024-04-19 13:58] LABS: Albumin Level 4.3 g/dl (3.5-5.0); Potassium 4.5 mmoL/L (3.5-5.1); Sodium 140 mmol/L (136-145)
[2024-04-19 14:01] LABS: Alanine Aminotransferase 15 U/L (12-78); Alkaline Phosphatase 75 U/L (38-126); Anion Gap 9.5 mEq/L (5-15); Aspartate Amino Transferase 27 U/L (14-36); Bilirubin,Direct 0.3 mg/dl (0.0-0.4); Bilirubin,Indirect 0.3 mg/dL (0.0-0.9); Bilirubin,Total 0.6 mg/dl (0.2-1.3); Bilirubin,Unconjugated 0.2 mg/dL (0.0-1.1); Blood Urea Nitrogen 18 mg/dl (7-17); Calcium 9.4 mg/dl (8.4-10.2); Carbon Dioxide 28 mmol/L (22.0-30.0); Chol/HDL Ratio 2.1 (1-3.5); Cholesterol 180 mg/dl (140-200); Estimated Glomerular Filt Rate 74 ml/min (>60); GFR (African American) 90 ML/MIN (>60); Glucose 96 mg/dl (74-100); HDL Cholesterol 85 mg/dl (40-60); Total Protein,Serum 6.8 g/dl (6.3-8.2); Triglycerides 121 mg/dl (30-150); VLDL Cholesterol 24 mg/dL (0-40)
[2024-04-19 14:13] LABS: Direct LDL Cholesterol 74.32 mg/dL (100-129)
[2024-04-19 14:17] LABS: Free T4 (Free Thyroxine) 1.33 ng/dl (0.78-2.19)
[2024-04-19 14:32] LABS: Thyroid Stimulating Hormone 1.18 uIU/mL (0.465-4.68)
== END 2024-04-19 23:59 | disposition home or self-care (01) ==
LOC: LAB 13:19
PROVIDERS: PCP Nurse Practitioner Family; Visit Provider Physician Assistant
DX: I10 Essential (primary) hypertension (principal); E78.5 Hyperlipidemia, unspecified; R06.00 Dyspnea, unspecified; I25.10 Atherosclerotic heart disease of native coronary artery without angina pectoris; E87.6 Hypokalemia
CPT/HCPCS: 36415; 80048; 80061; 80076; 84439; 84443; 85025

== ENCOUNTER 2024-04-22 09:17 | Day surgery (SDC) | payer MEDICARE, SELFPAY ==
[2024-04-19 13:18] VITALS: BMI 41.9
[2024-04-22] VITALS (7 sets, daily range): BP systolic 115–141; BP diastolic 53–81; PULSE 63–86; RESP 16–18; TEMP 36.2–36.6; O2SAT 95–100
[2024-04-22] MEDS: LACTATED RINGERS 1000ML 1,000 ML 25 ML IV (09:46)
--- NOTE | 2024-04-22 10:05 | EXP.ANES.CKL ---
[facility] Disclaimer: The information contained in this section may have been updated after the patient was seen, as this information can be updated by other users. Medical History Encounter for pre-operative cardiovascular clearance Foot neuroma Edema Angina pectoris Normal colonoscopy Myocardial infarction Lung disease Depression CHF (congestive heart failure) Arrhythmia Anxiety Dizziness HTN (hypertension) Coronary artery disease Sinus bradycardia Obesity Abnormal EKG Dyspnea Palpitations GERD (gastroesophageal reflux disease) Hyperlipidemia Surgical History Hx of cardiac cath History of arthroscopy of right shoulder H/O arthroscopy of left knee Family History Other No significant family history Social History Smoking Status: Former smoker tobacco type: cigarettes packs per day: 1 second hand exposure: No alcohol intake: never substance use type: denies use current occupational status: other Travel in the last 8 weeks: None household members: spouse housing: house 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 Have you lived/traveled outside [place] in past 30 days?: No Contact w/someone who lives/traveled outside [place] past 30 days?: No Exposure to someone with infectious disease in past 14 days?: No Do you have a fever (greater than 100.4 F or 38 C)?: No Have you tested positive for COVID-19: No Exposed to someone with COVID-19 in past 14 days?: No Do you have a sore throat?: No Do you have a cough?: No Do you have any weakness?: No Do you have any diarrhea?: No Are you experiencing any unusual bleeding?: No Do you have any muscle aches/pain?: No Do you have any abdominal pain?: No Are you experiencing loss of taste or smell?: No [facility] Anesthesia Checklist Patient Identification Patient Identification: Arm Band Structural Data Admitted From: Home Planned Operative Procedure/s: EGD Consent for Planned Operative Procedure(s) Verified: Yes Verified Documents: Surgical Consent and History and Physical NPO Status Verified Time NPO: 00:00 Additional verifications Anesthesia Reactions: No Hx Blood Transfusions: No Blood Transfusion Reaction: No Airway Assessment Mallampati Score:: Class II C-Spine Mobility Assessed: Yes TMJ Mobility Assessed: Yes Dentition: Good Dentition Neurological Assessment Level of Consciousness: Awake, Alert and Appropriate Anesthesia Plan Anesthesia Risk discussed: Yes Anesthesia Plan: Verified ASA Class: III Anesthesia Type: MAC
--- NOTE | 2024-04-22 10:43 | P.HP_ITS ---
History of Present Illness *Admission Date: 04/22/24 *Reason for visit:: Dyspepsia, nausea, reflux and dysphagia *History of present illness: Mrs. Carmona is a 58-year-old female who is here for diagnostic EGD secondary to dyspepsia, nausea, fullness, reflux and dysphagia. The examination is deemed medically necessary for upper endoscopy. The patient has been seen, interviewed and examined prior to the procedure by both myself and the anesthesia provider. [facility] Disclaimer: The information contained in this section may have been updated after the patient was seen, as this information can be updated by other users. Medical History Encounter for pre-operative cardiovascular clearance Foot neuroma Edema Angina pectoris Normal colonoscopy Myocardial infarction Lung disease Depression CHF (congestive heart failure) Arrhythmia Anxiety Dizziness HTN (hypertension) Coronary artery disease Sinus bradycardia Obesity Abnormal EKG Dyspnea Palpitations GERD (gastroesophageal reflux disease) Hyperlipidemia Surgical History Hx of cardiac cath History of arthroscopy of right shoulder H/O arthroscopy of left knee Family History Other No significant family history Social History Smoking Status: Former smoker tobacco type: cigarettes packs per day: 1 second hand exposure: No alcohol intake: never substance use type: denies use current occupational status: other Travel in the last 8 weeks: None household members: spouse housing: house 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 Have you lived/traveled outside [place] in past 30 days?: No Contact w/someone who lives/traveled outside [place] past 30 days?: No Exposure to someone with infectious disease in past 14 days?: No Do you have a fever (greater than 100.4 F or 38 C)?: No Have you tested positive for COVID-19: No Exposed to someone with COVID-19 in past 14 days?: No Do you have a sore throat?: No Do you have a cough?: No Do you have any weakness?: No Do you have any diarrhea?: No Are you experiencing any unusual bleeding?: No Do you have any muscle aches/pain?: No Do you have any abdominal pain?: No Are you experiencing loss of taste or smell?: No Other Medical History Have you received the Flu Vaccine for this season: No Have you received the Pneumonia Vaccine: No Review of Systems Review of Systems Review of systems (narrative): Negative *Cardiovascular Comments: Negative *Gastrointestinal Comments: Negative *Genitourinary Comments: Negative *Musculoskeletal Comments: Negative *Neurologic Comments: Negative Meds Home Medications and Allergies Home Medications ?Medication ?Instructions ?Recorded ?Confirmed ?Type famotidine 20 mg tablet 20 mg PO DAILY 01/05/24 04/19/24 History furosemide 40 mg tablet 40 mg PO DAILY 01/05/24 04/19/24 History esomeprazole magnesium 40 mg See Rx Instructions .Route 01/22/24 04/19/24 Rx capsule,delayed release .COMPLEX #30 caps venlafaxine 37.5 mg See Rx Instructions .Route 01/22/24 04/19/24 Rx capsule,extended release 24 hr .COMPLEX #30 caps ipratropium 0.5 mg-albuterol 3 mg 3 ml inhalation Q4-6H PRN 01/23/24 04/19/24 Rx (2.5 mg base)/3 mL nebulization shortness of breath or wheezing soln #90 mL budesonide-formoterol HFA 160 See Rx Instructions .Route 01/29/24 04/19/24 Rx mcg-4.5 mcg/actuation aerosol .COMPLEX #10.2 grams inhaler (Symbicort) naproxen 500 mg tablet 500 mg PO DAILY PRN Pain 02/08/24 04/19/24 History metoprolol succinate 25 mg See Rx Instructions .Route 02/22/24 04/19/24 Rx tablet,extended release 24 hr .COMPLEX #45 tabs ropinirole 0.5 mg tablet See Rx Instructions .Route 02/22/24 04/19/24 Rx .COMPLEX #30 tabs hydrocodone 7.5 mg-acetaminophen 1 tab PO QID #120 tabs 04/08/24 04/19/24 Rx 325 mg tablet aspirin 81 mg capsule 81 mg PO DAILY 04/19/24 04/19/24 History New Prescriptions to Start Prescriptions: Allergies Allergy/AdvReac Type Severity Reaction Status Date / Time clopidogrel (From Plavix) Allergy Severe NON Verified 04/22/24 09:44 RESPONDER-STENT THROMBOSIS atorvastatin AdvReac Intermediate Abdominal Verified 04/22/24 09:44 Pain rosuvastatin (From Crestor) AdvReac Mild myalgia Verified 04/22/24 09:44 Exam Data for Last 24 hours Vital signs and Labs for Last 24 Hours: Temp Pulse Resp BP Pulse Ox O2 Del Method O2 Flow Rate 97.9 F 63 18 133/77 98 Nasal Cannula 5 04/22/24 09:46 04/22/24 09:46 04/22/24 09:46 04/22/24 09:46 04/22/24 09:46 04/22/24 10:36 04/22/24 10:36 I & O for Last 24 hours: Intake & Output 04/19/24 04/20/24 04/21/24 04/22/24 23:59 23:59 23:59 23:59 Weight 260 lb *Routine HEENT Exam Head: Present normocephalic Eye: Present EOMI and PERRL ENT: Present mucous membranes moist *Routine Neck Exam Neck: Present supple *Routine Respiratory Exam Respiratory: Present CTA bilaterally *Routine Cardiovascular Exam Cardiovascular: Present RRR *Routine Abdominal Exam Abdominal: Present soft and normoactive bowel sounds; Absent tenderness *Routine Rectal Exam Rectal:: deferred *Routine Genitalia Exam Genitalia:: deferred *Routine Extremities Exam Extremities: Absent cyanosis, clubbing or edema *Routine Skin Exam Skin: Present warm; Absent rash *Routine Neurological Exam Neurological: Present alert and oriented X3 Assessment and Plan *Assessment and plan (1) Dysphagia: Status: Acute Category: Medical Code(s): R13.10 - Dysphagia, unspecified (2) Functional dyspepsia: Status: Acute Category: Medical Code(s): K30 - Functional dyspepsia (3) Epigastric pain: Status: Acute Category: Medical Code(s): R10.13 - Epigastric pain (4) Nausea: Status: Acute Category: Medical Code(s): R11.0 - Nausea (5) GERD (gastroesophageal reflux disease): Status: Acute Category: Medical Code(s): K21.9 - Gastro-esophageal reflux disease without esophagitis (6) Early satiety: Status: Acute Category: Medical Code(s): R68.81 - Early satiety Plan A/P: 1. Dyspepsia, dysphagia, reflux and nausea is the preprocedural diagnosis. The patient will be anesthetized/sedated using MAC sedation. The patient has been seen and examined. Cardiac and lung assessment prior to the examination is stable. Proceed with planned EGD
--- NOTE | 2024-04-22 10:44 | P.PCN_ITS ---
[facility] Procedure Note Date: 04/22/24 Time: 10:51 Procedure Note:: Upper Endoscopy Procedure Report: Esophagogastroduodenoscopy with cold biopsies and TTS balloon dilation Endoscopost: Jefferson Benavidez II, MD Referring Physician: LATESHA Georges Date of Procedure: April 22, 2024 Equipment: Olympus GIF 190 standard upper endoscope Sedation: MAC sedation Indications: Mrs. Carmona is a 58-year-old female who is here for diagnostic upper endoscopy. She was last seen by me for EGD in August 2020 and at that time had some reactive gastropathy. She did have a colonoscopy with me in July 2018 and had a couple of benign hyperplastic polyps removed. She did have a CT scan of the abdomen and pelvis in March 2022 that was unremarkable except for a right renal cyst. Presently, the patient complains of new pain in the epigastrium and periumbilical region radiating into the back. She has persistent nausea daily, early satiety, belching and reflux. She is on esomeprazole 40 mg p.o. daily and famotidine 20 mg in the evening. She has noted some globus and dysphagia. The dysphagia is primarily to meats. She reports frequent clearance of the throat, coughing and some wheezing. She does report regular bowel function as long as she uses MiraLAX daily. She feels as if she evacuates. Her abdominal pain radiates into the back between her shoulder blades. She reports no weight loss, fever or melena. The patient cannot go without use omeprazole. She has tried Iberogast with some minor improvement. Procedure: Prior to the procedure, a history and physical exam was performed, and patient's medications and allergies were reviewed. The risks, benefits and alternatives of the sedation and procedure were discussed with the patient. All questions were answered and informed consent was obtained. The patient was brought to the procedure room. Patient identification and proposed procedure were verified by the physician and the nurse. The patient was placed in a left lateral decubitus position and the scope was passed under direct vision. Throughout the procedu re, the patient's blood pressure, pulse, and oxygen saturations were monitored continuously. The upper GI endoscopy was accomplished without difficulty. The patient tolerated the procedure well. Findings: The scope was passed directly into the upper esophagus and advanced to the third portion of the duodenum. The post bulbar duodenum and duodenal bulb were normal with normal mucosa and conniventes. The ampulla was normal in appearance. The scope was withdrawn through a normal duodenal bulb and pylorus into the stomach. There was some linear reactive gastropathy of the antrum. There was minimal chronic gastritis of the body and fundus. Upon retroflexion there was no hiatal hernia. Biopsies were taken from the antrum and lesser curvature. The scope was then withdrawn into the esophagus. There was no evidence of reflux esophagitis or Fam's. There was no Schatzki's ring, corrugation or furrowing. There were tertiary contractions and mild esophageal dysmotility. The entire esophagus was dilated to 60 Greenlandic/20 mm with a TTS hydrostatic balloon. There was minimal resistance at the cricopharyngeus. The remainder of the esophageal mucosa was normal. Impression: 1. 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 Nonerosive GERD with moderate esophageal dysmotility 3. Mild linear reactive gastropathy of antrum Plan: I will follow-up the biopsies. I do feel that she will benefit from promotility therapy and adding Citrucel to the MiraLAX. We will discuss additional treatment options of her dyspepsia.
[2024-04-22] MEDS: IPRATROPIUM/ALBUTEROL 3 ML NEB IH (11:00)
== END 2024-04-22 11:30 | disposition home or self-care (01) ==
PROVIDERS: PCP Nurse Practitioner Family; Visit Provider Internal Medicine Gastroenterology
PROC: 0DJ08ZZ Inspection of Upper Intestinal Tract, Via Natural or Artificial Opening Endoscopic (ICD-10-PCS; CPT 43235; principal; 2024-04-22 11:00)
DX: R13.10 Dysphagia, unspecified (principal); K30 Functional dyspepsia; R11.0 Nausea; K21.9 Gastro-esophageal reflux disease without esophagitis; R68.81 Early satiety; K22.4 Dyskinesia of esophagus; K29.50 Unspecified chronic gastritis without bleeding; K31.9 Disease of stomach and duodenum, unspecified; J39.2 Other diseases of pharynx
CPT/HCPCS: 43239; 43249; 94640; C1726; J7120; J7620

== ENCOUNTER 2024-05-07 09:56 | Day surgery (SDC) | payer MEDICARE, SELFPAY ==
[2024-05-07 10:44] VITALS: BP 132/62; PULSE 68; RESP 16; TEMP 36.4; O2SAT 99; BMI 41.9
[2024-05-07 11:24] VITALS: BP 121/84; PULSE 65; RESP 16; TEMP 36.5; O2SAT 98
--- NOTE | 2024-05-07 11:29 | P.PCN_ITS ---
Procedure Date: 05/07/24 Time: 11:10 Anesthesiologist:: Live Romero CRNA Complications:: None Pre-procedure Diagnosis:: Bilateral trochanteric bursitis Post-procedure Diagnosis:: Same Indications for Procedure:: Patient is a pleasant 58-year-old female who comes our clinic today for bilat eral trochanteric bursa injection of cortisone and local anesthetic. She describes bilateral lateral hip pain as constant, dull, sharp, stabbing. Upon examination she has extreme point tenderness over the lateral hip bilaterally. She rates her pain 8/10. Procedure Details:: Procedure: Bilateral trochanteric bursa joint injections under fluoroscopy Informed consent was obtained and the risks and benefits of the procedure were explained to the patient.~ The patient was taken to the procedure room and noninvasive monitors were placed including a noninvasive blood pressure cuff and pulse oximeter.~ The patient was placed prone on the procedure table. Both hips were cleansed using Betadine as a cleansing solution. C-arm fluoroscopy was used to view the right trochanteric bursa joint.~ The skin and subcutaneous tissues were anesthetized using lidocaine 1.5% and a 25-gauge needle.~ After this, a 22- gauge spinal needle was inserted under fluoroscopic guidance into the inferior aspect of the right trochanteric bursa.~ Omnipaque dye was injected and good spread was seen throughout the joint.~ After this, approximately 5 mL of bupivacaine, 0.25% and Depo-Medrol, 40 mg was incrementally injected into the right sacroiliac joint. We then moved to the left trochanteric bursa joint.~ The skin and subcutaneous tissues were anesthetized using lidocaine 1.5% and a 25-gauge needle.~ After this, a 22-gauge spinal needle was inserted under fluoroscopic guidance into the inferior aspect of the left trochanteric bursa joint.~ Omnipaque dye was i njected and good spread was seen throughout the joint. After this, approximately 5 mL of bupivacaine, 0.25% and Depo-Medrol, 40 mg was incrementally injected into the left sacroiliac joint.~ The patient tolerated the procedure well with no complications. The patient was observed in the Pain Clinic and then was discharged home neurologically intact. Plan and Disposition:: Patient was discharged without incident.
[2024-05-07] MEDS: LIDOCAINE 1% 5ML PF VIAL 5 ML (11:33)
[2024-05-07 11:34] VITALS: BP 148/83; PULSE 66; RESP 18; O2SAT 97
[2024-05-07] MEDS: methylPREDNISolone ACETATE 80MG/ML VIAL 80 MG (11:34)
[2024-05-07] MEDS: BUPIVACAINE 0.25% 10ML INJ 25 MG IJ (11:34)
[2024-05-07 11:36] VITALS: BP 148/83; PULSE 66; RESP 18; O2SAT 97
== END 2024-05-07 11:24 | disposition home or self-care (01) ==
PROVIDERS: PCP Nurse Practitioner Family; Visit Provider Nurse Anesthetist, Certified Registered
DX: M70.61 Trochanteric bursitis, right hip (principal); M70.62 Trochanteric bursitis, left hip
CPT/HCPCS: 20610; 77002; J1010

== ENCOUNTER 2024-06-10 11:20 | Outpatient (POV) | payer MEDICARE, SELFPAY ==
--- NOTE | 2024-06-10 11:58 | EXP.PAIN.SOA ---
[facility] Disclaimer: The information contained in this section may have been updated after the patient was seen, as this information can be updated by other users. Medical History Encounter for pre-operative cardiovascular clearance Foot neuroma Edema Angina pectoris Normal colonoscopy Myocardial infarction Lung disease Depression CHF (congestive heart failure) Arrhythmia Anxiety Dizziness HTN (hypertension) Coronary artery disease Sinus bradycardia Obesity Abnormal EKG Dyspnea Palpitations GERD (gastroesophageal reflux disease) Hyperlipidemia Surgical History Hx of cardiac cath History of arthroscopy of right shoulder H/O arthroscopy of left knee Family History Other No significant family history Social History Smoking Status: Former smoker tobacco type: cigarettes packs per day: 1 second hand exposure: No alcohol intake: never substance use type: denies use current occupational status: other Travel in the last 8 weeks: None household members: spouse housing: house current occupation: [employer] current occupational exposures/hazards: No caffeine: Yes PM Subjective & Objective Subjective Subjective:: Patient is a pleasant 58-year-old female who presents today for medication refill and worsening pain. She does rate her pain an 8 out of 10. Patient did also have bilateral bursa injections back on 05/07/2024 that she does state provided about 70 to 80% relief and still feels like this is helping. Patient does have a major complaint of more left hip pain. Patient states she has sharp pain that is over and around her left buttocks area that does also go into her groin when she is up walking. Patient states the pain does interfere with her ability perform activities of daily living such as cooking and cleaning or even sleeping. Patient states that she is interested in additional injection therapy. Patient has continued conservative therapy including at home stretching exercise. Patient is currently managed with [place] 7.5 mg 3 times a day and has even been tried on methocarbamol with minimal improvement. Patient denies any side effects. Her Anatoly has been reviewed and is appropriate. Review of Systems: General: No recent weight changes, no fever, no sleep disturbances Respiratory: No cough, no shortness of air, no recurring pulmonary infections Cardiovascular/peripheral vascular: No chest pain, no palpitations, no edema, no shortness of breath Gastrointestinal: No new onset incontinence, normal bowel movements reported Genitourinary: No new onset incontinence Musculoskeletal: Left hip pain Psychiatric: [Normal mood/affect] Neurological: [Denies weakness in extremities], [denies balance issues] Pain at rest (0-10 scale): 8 Objective Objective:: Physical Exam: General: Alert and oriented x3, no acute distress, pleasant and cooperative Lungs: Respirations even and unlabored, symmetrical chest expansion Eyes: PERRL Musculoskeletal: Flexion and extension of left hip somewhat guarded secondary to pain, [antalgic gait noted] Neurological: Speech clear, no gross sensory deficit Has patient had previous pain injection?: Yes Percent improvement in pain since last injection: 70 to 80% Conservative treatment options previously tried: Home exercise plan Length of treatment: Longer than 12 weeks Meds Home Medications and Allergies Home Medications ?Medication ?Instructions ?Recorded ?Confirmed ?Type furosemide 40 mg tablet 40 mg PO DAILY 01/05/24 05/24/24 History ipratropium 0.5 mg-albuterol 3 mg 3 ml inhalation Q4-6H PRN 01/23/24 05/24/24 Rx (2.5 mg base)/3 mL nebulization shortness of breath or wheezing soln #90 mL metoprolol succinate 25 mg See Rx Instructions .Route 02/22/24 05/24/24 Rx tablet,extended release 24 hr .COMPLEX #45 tabs aspirin 81 mg capsule 81 mg PO DAILY 04/19/24 05/24/24 History buspirone 10 mg tablet 10 mg PO BID #60 tabs 04/22/24 05/24/24 Rx budesonide-formoterol HFA 160 See Rx Instructions .Route 04/23/24 05/24/24 Rx mcg-4.5 mcg/actuation aerosol .COMPLEX #10.2 grams inhaler (Symbicort) hydrocodone 7.5 mg-acetaminophen 1 tab PO QID #120 tabs 05/09/24 05/24/24 Rx 325 mg tablet esomeprazole magnesium 40 mg See Rx Instructions .Route 05/24/24 05/24/24 Rx capsule,delayed release .COMPLEX #30 caps famotidine 20 mg tablet 20 mg PO DAILY 30 days #30 tabs 05/24/24 05/24/24 Rx naproxen 500 mg tablet 500 mg PO DAILY PRN Pain #30 tabs 05/24/24 05/24/24 Rx ropinirole 1 mg tablet See Rx Instructions .Route 05/24/24 05/24/24 Rx .COMPLEX 30 days #30 tabs tizanidine 6 mg capsule 6 mg PO Q8H PRN muscle spasticity 05/24/24 05/24/24 Rx #90 caps trazodone 50 mg tablet 50 mg PO DAILY #30 tabs 05/24/24 05/24/24 Rx venlafaxine 37.5 mg See Rx Instructions .Route 05/24/24 05/24/24 Rx capsule,extended release 24 hr .COMPLEX #30 caps New Prescriptions to Start Prescriptions: Allergies Allergy/AdvReac Type Severity Reaction Status Date / Time clopidogrel (From Plavix) Allergy Severe NON Verified 05/24/24 14:24 RESPONDER-STENT THROMBOSIS atorvastatin AdvReac Intermediate Abdominal Verified 05/24/24 14:24 Pain rosuvastatin (From Crestor) AdvReac Mild myalgia Verified 05/24/24 14:24 Assessment and Plan *Assessment and plan (1) Chronic left hip pain: Status: Acute Category: Medical Code(s): M25.552 - Pain in left hip; G89.29 - Other chronic pain (2) Left groin pain: Status: Acute Category: Medical Code(s): R10.32 - Left lower quadrant pain Plan Patient is experiencing significant pain in her left hip that does radiate into her left groin when she is up ambulating. Patient did have limited range of motion of her left hip during today's visit. I did discuss with patient that I do believe she would benefit from a left hip intra-articular injection. Risk and benefits were discussed with patient and she would like to proceed forward with this plan of care. Patient has tried and failed conservative therapy including continued at home stretching exercise that was physician guided between injections. Patient denies any previous replacement on this joint space. I will also refill her [place] and send in a 2-week dose of pregabalin 50 mg at bedtime. Patient will be scheduled for a left hip intra-articular injection under fluoroscopy. Risks and benefits of the medication have been explained in detail to the patient. The patient does understand the risk of dependence on the medication when given over a prolonged period. Patient has been advised of risks of oversedation with the prescribed medication. Narcan has been offered to the paitent in the event of oversedation. Patient has been advised that a family member should also be educated regarding administration of Narcan. The patient has been advised to consult with his/her primary care provider and pharmacist regarding drug-drug interaction of medications currently prescribed. Patient has been prescribed a controlled substance after being counseled on the medication, medication safety, and possible side effects. Opioid contract was reviewed and signed by the patient, and that they have agreed to all of the terms set forth by our compliance program. A UDS is needed to verify patient's compliance with our office pain contract. This is ordered based off specific treatments related to chronic pain with the potential to abuse certain medications. Patient has been instructed to contact the clinic with any concerns before the next appointment. Dr. Savage has reviewed this note and agrees with this plan of care. This note was dictated using voice recognition software and make contain errors or omissions.
[2024-06-10 15:32] VITALS: BP 137/83; PULSE 67; RESP 14; O2SAT 99; BMI 41.9
== END 2024-06-10 23:59 | disposition home or self-care (01) ==
PROVIDERS: PCP Nurse Practitioner Family; Visit Provider Nurse Practitioner Family
DX: M25.552 Pain in left hip (principal); G89.29 Other chronic pain; R10.32 Left lower quadrant pain; Z87.891 Personal history of nicotine dependence; Z73.89 Other problems related to life management difficulty
CPT/HCPCS: 99212; G0463

== ENCOUNTER 2024-06-13 14:17 | Outpatient (CLI) | payer MEDICARE, SELFPAY ==
--- NOTE | 2024-06-13 14:20 | CA_ITS ---
FINAL REPORT TECHNIQUE: Color Doppler, duplex Doppler and capps scale sonography of the bilateral neck arterial vasculature was performed. Velocities were measured in the carotid arteries. Stenosis evaluation based on the validated velocity criteria. CLINICAL HISTORY: HLD, smoker, CAD, dizziness COMPARISON: None FINDINGS: The peak systolic velocity of the right common carotid artery is 97 cm/s. The peak systolic velocity of the right internal carotid artery is 117 cm/s and end diastolic velocity 40 cm/s. The ICA/CCA ratio is 1.7. A minimal amount of plaque is present. The right external carotid artery is patent. The right vertebral artery is patent with antegrade flow. The peak systolic velocity of the left common carotid artery is 124 cm/s. The peak systolic velocity of the left internal carotid artery is 132 cm/s and end diastolic velocity 33 cm/s. The ICA/CCA ratio is 1.9. A minimal amount of plaque is present. The left external carotid artery is patent.The left vertebral artery is patent with antegrade flow. IMPRESSION: Less than 50% bilateral carotid stenoses. Bilateral patent vertebral arteries with antegrade flow. If indicated, CTA or MRA could further evaluate. Reviewed, Interpreted and Dictated by Jason Khalil MD Transcribed by Darlene Fragoso Authenticated and [facility]
== END 2024-06-13 23:59 | disposition home or self-care (01) ==
LOC: RT 14:18
PROVIDERS: PCP Nurse Practitioner Family; Visit Provider Nurse Practitioner Family
DX: R42 Dizziness and giddiness (principal); I25.10 Atherosclerotic heart disease of native coronary artery without angina pectoris
CPT/HCPCS: 93880

== ENCOUNTER 2024-07-02 10:09 | Day surgery (SDC) | payer MEDICARE, SELFPAY ==
[2024-07-02 10:13] VITALS: BP 114/76; PULSE 70; RESP 16; TEMP 36.6; O2SAT 95; BMI 41.9
--- NOTE | 2024-07-02 11:01 | EXP.PAIN.PRO ---
Procedure Date: 07/02/24 Time: 10:40 Anesthesiologist:: Live Romero CRNA Complications:: None Pre-procedure Diagnosis:: DJD left hip. Chronic left hip pain. Post-procedure Diagnosis:: Same. Indications for Procedure:: Patient is a pleasant 58-year-old female who comes our clinic today for left intra-articular hip injection. Patient describes left hip and left anterior thigh pain as constant, dull, aching. She rates her pain 7/10. Procedure Details:: Details of the procedure were explained to the patient. The patient was taken to procedure room placed in the supine position. The area over the left hip was cleaned using chlorhexidine as a cleansing solution. Using fluoroscopy guidance a 3 and half inch 22-gauge spinal needle was used to access the left hip joint without difficulty. After negative aspiration 3 cc of 1% lidocaine +3 cc of 0.25% Marcaine and 40 mg of Depo-Medrol was injected. Needle was withdrawn. Band-Aid applied. Patient tolerated procedure without difficulty. There are no complications. Plan and Disposition:: Patient was discharged without incident.
[2024-07-02] MEDS: methylPREDNISolone ACETATE 80MG/ML VIAL 80 MG (11:20)
[2024-07-02] MEDS: LIDOCAINE 1% 5ML PF VIAL 5 ML (11:28)
[2024-07-02] MEDS: BUPIVACAINE 0.25% 10ML INJ 25 MG IJ (11:28)
[2024-07-02 11:40] VITALS: BP 124/74; PULSE 69; RESP 16; O2SAT 96
== END 2024-07-02 11:40 | disposition home or self-care (01) ==
PROVIDERS: PCP Nurse Practitioner Family; Visit Provider Nurse Anesthetist, Certified Registered
DX: M16.12 Unilateral primary osteoarthritis, left hip (principal); M25.552 Pain in left hip; G89.29 Other chronic pain
CPT/HCPCS: 20610; 77002; J1010

== ENCOUNTER 2024-07-24 11:28 | Outpatient (POV) | payer MEDICARE, SELFPAY ==
[2024-07-24 11:40] VITALS: BP 114/63; PULSE 66; RESP 16; O2SAT 100; BMI 42.7
--- NOTE | 2024-07-24 12:04 | EXP.PAIN.SOA ---
[facility] Disclaimer: The information contained in this section may have been updated after the patient was seen, as this information can be updated by other users. Medical History Near syncope Encounter for pre-operative cardiovascular clearance Foot neuroma Edema Angina pectoris Normal colonoscopy Myocardial infarction Lung disease Depression CHF (congestive heart failure) Arrhythmia Anxiety Dizziness HTN (hypertension) Coronary artery disease Sinus bradycardia Obesity Abnormal EKG Dyspnea Palpitations GERD (gastroesophageal reflux disease) Hyperlipidemia Surgical History Hx of cardiac cath History of arthroscopy of right shoulder H/O arthroscopy of left knee Family History Other No significant family history Social History Smoking Status: Former smoker tobacco type: cigarettes packs per day: 1 second hand exposure: No alcohol intake: never substance use type: denies use current occupational status: other Travel in the last 8 weeks: None household members: spouse housing: house current occupation: [employer] current occupational exposures/hazards: No caffeine: Yes PM Subjective & Objective Subjective Subjective:: Patient is a pleasant 58-year-old female who presents today for follow-up of left intra-articular hip injection on 07/02/2024. Patient states that she really did not notice much improvement with this. She states she continues to have chronic pain along the left side. Patient did just go through an EMG and did bring in her results today. Patient states she is scheduled for a follow-up tomorrow regarding those results. Patient is currently managed with [place] 7.5 mg 3 times a day. She denies any side effects. Patient has been tried on methocarbamol with minimal relief. Patient was recently also given pregabalin 50 mg at bedtime. Her Anatoly has been reviewed and is appropriate. Review of Systems: General: No recent weight changes, no fever, no sleep disturbances Respiratory: No cough, no shortness of air, no recurring pulmonary infections Cardiovascular/peripheral vascular: No chest pain, no palpitations, no edema, no shortness of breath Gastrointestinal: No new onset incontinence, normal bowel movements reported Genitourinary: No new onset incontinence Musculoskeletal: Left hip, left leg pain, chronic low back pain Psychiatric: [Normal mood/affect] Neurological: [Denies weakness in extremities], [denies balance issues] Pain at rest (0-10 scale): 9 Objective Objective:: Physical Exam: General: Alert and oriented x3, no acute distress, pleasant and cooperative Lungs: Respirations even and unlabored, symmetrical chest expansion Eyes: PERRL Musculoskeletal: Flexion and extension of lumbar [spine] somewhat guarded secondary to pain, [antalgic gait noted] Neurological: Speech clear, no gross sensory deficit Has patient had previous pain injection?: Yes Percent improvement in pain since last injection: Minimal Conservative treatment options previously tried: Home exercise plan Length of treatment: Longer than 12 weeks Meds Home Medications and Allergies Home Medications ?Medication ?Instructions ?Recorded ?Confirmed ?Type ipratropium 0.5 mg-albuterol 3 mg 3 ml inhalation Q4-6H PRN 01/23/24 07/24/24 Rx (2.5 mg base)/3 mL nebulization shortness of breath or wheezing soln #90 mL aspirin 81 mg capsule 81 mg PO DAILY 04/19/24 07/24/24 History esomeprazole magnesium 40 mg See Rx Instructions .Route 05/24/24 07/24/24 Rx capsule,delayed release .COMPLEX #30 caps tizanidine 6 mg capsule 6 mg PO Q8H PRN muscle spasticity 05/24/24 07/24/24 Rx #90 caps hydrocodone 7.5 mg-acetaminophen 1 tab PO QID #120 tabs 06/10/24 07/24/24 Rx 325 mg tablet evolocumab 140 mg/mL subcutaneous 140 mg SQ Q2W #3 mL 06/24/24 07/24/24 Rx syringe (Repatha Syringe) metoprolol succinate 25 mg See Rx Instructions .Route 06/27/24 07/24/24 Rx tablet,extended release 24 hr .COMPLEX #45 tabs famotidine 20 mg tablet 20 mg PO DAILY 90 days #90 tabs 06/28/24 07/24/24 Rx ropinirole 1 mg tablet See Rx Instructions .Route 06/28/24 07/24/24 Rx .COMPLEX 90 days #90 tabs venlafaxine 75 mg capsule,extended See Rx Instructions .Route 06/28/24 07/24/24 Rx release 24 hr .COMPLEX #90 caps budesonide-formoterol HFA 160 See Rx Instructions .Route 07/10/24 07/24/24 Rx mcg-4.5 mcg/actuation aerosol .COMPLEX #10.2 grams inhaler (Symbicort) spironolactone 25 mg tablet 25 mg PO DAILY #90 tabs 07/16/24 07/24/24 Rx varenicline tartrate 0.5 mg (11)-1 See Rx Instructions PO PER PKG DIR 07/16/24 07/24/24 Rx mg (42) tablets in a dose pack #53 tabs (Chantix Starting Month Box) New Prescriptions to Start Prescriptions: Allergies Allergy/AdvReac Type Severity Reaction Status Date / Time clopidogrel (From Plavix) Allergy Severe NON Verified 07/22/24 14:51 RESPONDER-STENT THROMBOSIS atorvastatin AdvReac Intermediate Abdominal Verified 07/22/24 14:51 Pain rosuvastatin (From Crestor) AdvReac Mild myalgia Verified 07/22/24 14:51 Assessment and Plan *Assessment and plan (1) Left groin pain: Status: Acute Category: Medical Code(s): R10.32 - Left lower quadrant pain (2) Chronic left hip pain: Status: Acute Category: Medical Code(s): M25.552 - Pain in left hip; G89.29 - Other chronic pain Plan I did review over with the patient regarding her EMG and it did show polyneuropathies including a left fibular peroneal motor nerve involvement as well as bilateral tibial motor nerves that were prolonged. I did discuss with patient in future we could possibly try nerve blocks. We will follow-up with her after her follow-up appointment tomorrow. Patient will be refilled on her [place] and pregabalin. Patient will return to clinic in 1 month. Risks and benefits of the medication have been explained in detail to the patient. The patient does understand the risk of dependence on the medication when given over a prolonged period. Patient has been advised of risks of oversedation with the prescribed medication. Narcan has been offered to the paitent in the event of oversedation. Patient has been advised that a family member should also be educated regarding administration of Narcan. The patient has been advised to consult with his/her primary care provider and pharmacist regarding drug-drug interaction of medications currently prescribed. Patient has been prescribed a controlled substance after being counseled on the medication, medication safety, and possible side effects. Opioid contract was reviewed and signed by the patient, and that they have agreed to all of the terms set forth by our compliance program. A UDS is needed to verify patient's compliance with our office pain contract. This is ordered based off specific treatments related to chronic pain with the potential to abuse certain medications. Patient has been instructed to contact the clinic with any concerns before the next appointment. Dr. Savage has reviewed this note and agrees with this plan of care. This note was dictated using voice recognition software and make contain errors or omissions.
== END 2024-07-24 23:59 | disposition home or self-care (01) ==
PROVIDERS: PCP Nurse Practitioner Family; Visit Provider Nurse Practitioner Family
DX: R10.32 Left lower quadrant pain (principal); M25.552 Pain in left hip; G89.29 Other chronic pain; Z87.891 Personal history of nicotine dependence
CPT/HCPCS: 99212; G0463

== ENCOUNTER 2024-07-29 14:12 | Observation (INO) | payer MEDICARE, SELFPAY ==
[2024-07-29] VITALS (21 sets, daily range): BP systolic 101–151; BP diastolic 54–94; PULSE 54–72; RESP 12–22; TEMP 36.5–36.9; O2SAT 95–100; BMI 44.5
--- NOTE | 2024-07-29 07:15 | IR_ITS ---
APPROVED REPORT Patient Location: Outpatient PROCEDURES Selective coronary angiogram Drug-eluting stent deployment to the proximal and mid LAD INDICATION Angina pectoris, Coronary artery disease Informed consent was obtained prior to the procedure. COMPLICATIONS NONE Estimated Blood Loss: LESS THAN 10 ML TECHNIQUE One percent lidocaine used to anesthetize the right anterior aspect of the wrist. The right radial artery was accessed via the Seldinger technique. A 6 Malay sheath was placed in the right radial artery. 2.5 mg of Verapamil, 800 mcg of nitroglycerin, 1mg Lidocaine and 5000 U Heparin were given through the arterial sheath. The papa catheter was also used to perform left heart catheterization, left ventriculogram and selective coronary angiogram. At the end the diagnostic angiogram therapeutic Was administered given a therapeutic ACT and the guide catheter was placed in left main artery followed by Choice PT export wire down the LAD. A 3.5 x 15 mm Jenera frontier stent was placed in the proximal LAD extending beyond the large first diagonal artery and deployed at 20 ernestina reducing the stenosis to 0%. JAYY-3 flow was present before and after the procedure within the procedure the apparatus was removed sheath was removed and hemostasis was achieved using TR banding patient was transferred to the postop putting in stable condition ANGIOGRAPHIC RESULTS The left main artery Normal The left anterior descending artery Has a stent in the proximal segment which is widely patent and extends distal to a large first diagonal artery. Immediately distal to the first diagonal artery is a concentric 80 to 90% stenosis. The remaining LAD is widely patent. A large first diagonal artery has a stent which bifurcates off the proximal LAD and is widely patent The circumflex artery Large dominant with mild eccentric proximal 20% stenosis with remaining vessel widely patent with mild 10% luminal regularities The right coronary artery Vestigial normal The GLASS ventriculogram reveals Not performed The left ventricular end-diastolic pressure Not measured IMPRESSION Severe in-stent restenosis in the mid LAD immediately distal to a large diagonal artery Successful stenting the proximal to mid LAD severe disease reduced to 0% with 1 drug-eluting stent PLAN 1. Dual antiplatelet therapy 2. Cardiac rehabilitation 3. Avoidance of tobacco products 4. Risk factor modification 5. LDL less than 55-2 that high intensity statin Electronically signed by : Cole Douglas MD 07/29/2024 12:42:23
[2024-07-29 09:02] LABS: Basophils # 0.1 K/mm3 (0-0.2); Basophils % 0.7 % (0.1-2.0); Eosinophils # 0.2 K/mm3 (0.0-0.4); Eosinophils % 1.5 % (0.1-12.0); Hematocrit 40.9 % (37.0-47.0); Lymphocytes # 3.7 K/mm3 (0.7-4.5); Lymphocytes % 37.4 % (10-50); Mean Corpuscular HGB Conc 34.2 g/dL (31.8-35.4); Mean Corpuscular Hemoglobin 30.7 pg (27.0-31.2); Mean Corpuscular Volume 89.7 fl (81-99); Mean Platelet Volume 10.3 fl (7.4-10.4); Monocytes # 0.7 K/mm3 (0.1-1.0); Monocytes % 6.6 % (1.7-9.3); Neutrophils # 5.3 K/mm3 (1.8-7.8); Neutrophils % 53.5 % (37.0-80.0); Platelet Count 262 K/mm3 (142-424); Red Blood Count 4.56 M/mm3 (4.20-5.40); Red Cell Distribution Width 12.7 % (11.5-17.5); White Blood Count 9.9 K/mm3 (4.8-10.8)
[2024-07-29 09:11] LABS: Chloride 107 mmol/L (98-107); Potassium 4.1 mmoL/L (3.5-5.1); Sodium 139 mmol/L (136-145)
[2024-07-29 09:14] LABS: Blood Urea Nitrogen 17 mg/dl (7-17); Creatinine Clearance Estimated 74 mL/min (50-200); Estimated Glomerular Filt Rate 74 ml/min (>60); GFR (African American) 90 ML/MIN (>60)
[2024-07-29 09:15] LABS: Anion Gap 7.1 mEq/L (5-15); Calcium 9.4 mg/dl (8.4-10.2); Carbon Dioxide 29 mmol/L (22.0-30.0); Glucose 90 mg/dl (74-100)
[2024-07-29] MEDS: VERAPAMIL 2.5MG/ML 2ML VIAL 2.5 MG IV (11:52)
[2024-07-29] MEDS: HEPARIN 1,000 UNITS/500ML NS (CATH LAB) 3000 UNIT IV (11:52)
[2024-07-29] MEDS: diphenhydrAMINE 50MG/ML VIAL 50 MG IV (11:52)
[2024-07-29] MEDS: FENTANYL 100MCG/2ML VIAL 50 MCG IV (11:52)
[2024-07-29] MEDS: LIDOCAINE 1% 10ML MDV 20 ML IJ (11:57)
[2024-07-29] MEDS: NITROGLYCERIN 800MCG/8ML SYR (CATH LAB) 800 MCG IA (11:58)
[2024-07-29] MEDS: HEPARIN 1,000 UNITS/ML 10ML VIAL (CATH LAB) 10000 UNIT IV (11:58)
[2024-07-29] MEDS: MIDAZOLAM HCL 1MG/ML 5ML VIAL 1 MG IV (11:58)
[2024-07-29] MEDS: 0.9 % SODIUM CHLORIDE 500 ML 25 ML IV (11:58)
--- NOTE | 2024-07-29 12:49 | SUR.PHASEII ---
PATEINT REQUEST ADMISSION, DR VASQUEZ AWARE
[2024-07-29] MEDS: TICAGRELOR 90MG TABLET 180 MG PO (12:52)
--- NOTE | 2024-07-29 14:22 | EXP.HP ---
History of Present Illness *Admission Date: 07/29/24 *Reason for visit:: Status post heart cath, previous in-stent thrombosis *History of present illness: 58-year-old female brought in for elective left heart cath. Found to have LAD lesion. Stent placed. Reports having had stent placed several years ago and had in-stent thrombosis less than 24 hours after placement. Thought to be a Plavix nonresponder. Cardiology requested admission overnight to monitor given fresh stent. Patient very anxious. Continuing aspirin and Plavix. On evaluation, patient denies any chest pain, shortness of breath, nausea or vomiting. Does smoke a pack a day. Does not drink. No nausea or vomiting. Alert and oriented x 4. Family at bedside [facility] Disclaimer: The information contained in this section may have been updated after the patient was seen, as this information can be updated by other users. Medical History Near syncope Encounter for pre-operative cardiovascular clearance Foot neuroma Edema Angina pectoris Normal colonoscopy Myocardial infarction Lung disease Depression CHF (congestive heart failure) Arrhythmia Anxiety Dizziness HTN (hypertension) Coronary artery disease Sinus bradycardia Obesity Abnormal EKG Dyspnea Palpitations GERD (gastroesophageal reflux disease) Hyperlipidemia Surgical History Hx of cardiac cath History of arthroscopy of right shoulder H/O arthroscopy of left knee Family History Other Family history of acute congestive heart failure Family history of cancer No significant family history Social History Smoking Status: Current every day smoker tobacco type: cigarettes packs per day: 1 second hand exposure: No alcohol intake: never substance use type: denies use current occupational status: other Travel in the last 8 weeks: None household members: spouse housing: house 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 Have you lived/traveled outside US in past 30 days?: No Contact w/someone who lives/traveled outside US past 30 days?: No Exposure to someone with infectious disease in past 14 days?: No Do you have a fever (greater than 100.4 F or 38 C)?: No Have you tested positive for COVID-19: No Exposed to someone with COVID-19 in past 14 days?: No Do you have a sore throat?: No Do you have a cough?: No Do you have any weakness?: No Are you experiencing any nausea/vomitting?: No Do you have any diarrhea?: No Are you experiencing any unusual bleeding?: No Do you have any muscle aches/pain?: No Do you have any abdominal pain?: No Are you experiencing loss of taste or smell?: No Other Medical History Have you received the Flu Vaccine for this season: No Have you received the Pneumonia Vaccine: No Review of Systems Review of Systems Review of systems (narrative): 14 point review of systems performed, pertinent positives and negatives as per [facility] Meds Home Medications and Allergies Home Medications ?Medication ?Instructions ?Recorded ?Confirmed ?Type ipratropium 0.5 mg-albuterol 3 mg 3 ml inhalation Q4-6H PRN 01/23/24 07/24/24 Rx (2.5 mg base)/3 mL nebulization shortness of breath or wheezing soln #90 mL aspirin 81 mg capsule 81 mg PO DAILY 04/19/24 07/24/24 History esomeprazole magnesium 40 mg See Rx Instructions .Route 05/24/24 07/24/24 Rx capsule,delayed release .COMPLEX #30 caps tizanidine 6 mg capsule 6 mg PO Q8H PRN muscle spasticity 05/24/24 07/24/24 Rx #90 caps evolocumab 140 mg/mL subcutaneous 140 mg SQ Q2W #3 mL 06/24/24 07/24/24 Rx syringe (Repatha Syringe) metoprolol succinate 25 mg See Rx Instructions .Route 06/27/24 07/24/24 Rx tablet,extended release 24 hr .COMPLEX #45 tabs famotidine 20 mg tablet 20 mg PO DAILY 90 days #90 tabs 06/28/24 07/24/24 Rx ropinirole 1 mg tablet See Rx Instructions .Route 06/28/24 07/24/24 Rx .COMPLEX 90 days #90 tabs venlafaxine 75 mg capsule,extended See Rx Instructions .Route 06/28/24 07/24/24 Rx release 24 hr .COMPLEX #90 caps budesonide-formoterol HFA 160 See Rx Instructions .Route 07/10/24 07/24/24 Rx mcg-4.5 mcg/actuation aerosol .COMPLEX #10.2 grams inhaler (Symbicort) spironolactone 25 mg tablet 25 mg PO DAILY #90 tabs 07/16/24 07/24/24 Rx varenicline tartrate 0.5 mg (11)-1 See Rx Instructions PO PER PKG DIR 07/16/24 07/24/24 Rx mg (42) tablets in a dose pack #53 tabs (Chantix Starting Month Box) hydrocodone 7.5 mg-acetaminophen 1 tab PO QID #120 tabs 07/24/24 Rx 325 mg tablet pregabalin 50 mg capsule 50 mg PO HS #30 caps 07/24/24 Rx ticagrelor 90 mg tablet (Brilinta) 90 mg PO BID #60 tabs 07/29/24 Rx New Prescriptions to Start Prescriptions: ticagrelor [Brilinta] Cole Douglas Allergies Allergy/AdvReac Type Severity Reaction Status Date / Time clopidogrel (From Plavix) Allergy Severe NON Verified 07/29/24 12:36 RESPONDER-STENT THROMBOSIS atorvastatin AdvReac Intermediate Abdominal Verified 07/29/24 12:36 Pain rosuvastatin (From Crestor) AdvReac Mild myalgia Verified 07/29/24 12:36 prasugrel (From Effient) AdvReac Verified 07/29/24 12:36 Exam Data for Last 24 hours Vital signs and Labs for Last 24 Hours: Temp Pulse Resp BP Pulse Ox O2 Del Method 98.2 F 60 12 117/94 H 99 Room Air 07/29/24 08:48 07/29/24 13:55 07/29/24 13:55 07/29/24 13:55 07/29/24 13:55 07/29/24 13:55 Laboratory Results - last 24 hr 07/29/24 08:56: WBC 9.9, RBC 4.56, Hgb 14.0, Hct 40.9, MCV 89.7, MCH 30.7, MCHC 34.2, RDW 12.7, Plt Count 262, MPV 10.3, Neut % (Auto) 53.5, Lymph % (Auto) 37.4, [place] % (Auto) 6.6, Eos % (Auto) 1.5, Baso % (Auto) 0.7, Neut # (Auto) 5.3, Lymph # (Auto) 3.7, [place] # (Auto) 0.7, Eos # (Auto) 0.2, Baso # (Auto) 0.1, Sodium 139, Potassium 4.1, Chloride 107, Carbon Dioxide 29, Anion Gap 7.1, BUN 17, Creatinine 0.80, Estimated Creat Clear 74, Estimated GFR 74, Est GFR ( Amer) 90, Glucose 90, Calcium 9.4 I & O for Last 24 hours: Intake & Output 07/26/24 07/27/24 07/28/24 07/29/24 23:59 23:59 23:59 23:59 Weight 125.191 kg Constitutional Constitutional: morbidly obese, chronically ill appearing and cooperative *Routine HEENT Exam Head: Present normocephalic Eye: Present EOMI and PERRL ENT: Present mucous membranes moist *Routine Neck Exam Neck: Present supple *Routine Respiratory Exam Respiratory: Present CTA bilaterally; Absent rhonchi, wheezes or crackles *Routine Cardiovascular Exam Cardiovascular: Present RRR *Routine Abdominal Exam Abdominal: Present soft and normoactive bowel sounds; Absent tenderness *Routine Rectal Exam Rectal:: deferred *Routine Genitalia Exam Genitalia:: deferred *Routine Extremities Exam Extremities: Absent cyanosis, clubbing or edema *Routine Skin Exam Skin: Present warm; Absent rash *Routine Neurological Exam Neurological: Present alert, oriented X3 and moving all extremities; Absent altered mental status Assessment and Plan *Assessment and plan (1) Coronary artery disease: Status: Chronic Qualifiers: Coronary Disease-Associated Artery/Lesion type: [place] artery [place] vs. transplanted heart: [place] heart Associated angina: without angina Qualified Code(s): I25.10 - Atherosclerotic heart disease of [place] coronary artery without angina pectoris Category: Medical Code(s): I25.10 - Atherosclerotic heart disease of [place] coronary artery without angina pectoris (2) GERD (gastroesophageal reflux disease): Status: Acute Category: Medical Code(s): K21.9 - Gastro-esophageal reflux disease without esophagitis (3) Hyperlipidemia: Status: Chronic Qualifiers: Hyperlipidemia type: unspecified Qualified Code(s): E78.5 - Hyperlipidemia, unspecified Category: Medical Code(s): E78.5 - Hyperlipidemia, unspecified (4) Obstructive airway disease: Status: Chronic Qualifiers: COPD type: unspecified COPD Qualified Code(s): J44.9 - Chronic obstructive pulmonary disease, unspecified Category: Medical Code(s): J44.9 - Chronic obstructive pulmonary disease, unspecified (5) HTN (hypertension): Status: Acute Qualifiers: Hypertension type: unspecified Qualified Code(s): I10 - Essential (primary) hypertension Category: Medical Code(s): I10 - Essential (primary) hypertension (6) Morbid obesity with body mass index (BMI) of 40.0 to 49.9: Status: Chronic Category: Medical Code(s): E66.01 - Morbid (severe) obesity due to excess calories (7) EVAN (obstructive sleep apnea): Status: Chronic Category: Medical Code(s): G47.33 - Obstructive sleep apnea (adult) (pediatric) (8) Fibromyalgia: Status: Acute Category: Medical Code(s): M79.7 - Fibromyalgia (9) Tobacco use: Status: Acute Category: Social Hx Code(s): Z72.0 - Tobacco use (10) Coronary stent thrombosis: Problem Comment: History of in-stent thrombosis in 2021 Status: Resolved Qualifiers: Encounter type: initial encounter Qualified Code(s): T82.867A - Thrombosis due to cardiac prosthetic devices, implants and grafts, initial encounter Category: Medical Code(s): T82.867A - Thrombosis due to cardiac prosthetic devices, implants and grafts, initial encounter Plan 58-year-old female with history of CAD, hypertension, tobacco use disorder, obesity. Presented for elective left heart cath due to angina pectoris and CAD. Successful stenting. Discussed case with cardiology, request admission for monitoring overnight due to previous in-stent thrombosis in less than 24 hours. I agreed to admit for further care. Problems addressed as follows: CAD Hypertension Hyperlipidemia History of in-stent thrombosis - White count normal at 9.9, hemoglobin 14, platelets 262. Kidney function normal with BUN 17, creatinine 0.8. Repeat CBC, CMP, magnesium ordered for the morning. -Left heart cath performed due to angina pectoris and CAD. Found to have concentric 80 to 90% in-stent stenosis of the LAD. Successful stenting of the proximal to mid LAD reduced to 0%. Continue antiplatelet therapy with Brilinta 90 mg twice daily and aspirin 81 mg daily. - Continue spironolactone 25 mg daily for fluid management -Cardiology consulted to assist with care, will evaluate in the morning. Anticipate discharge tomorrow. Tobacco use disorder: Strongly encouraged to avoid tobacco products. Nicotine patch while admitted Morbid obesity complicates all aspects of her care Famotidine 20 mg daily for GERD Hydrocodone and Lyrica per home regimen for chronic pain DuoNebs every 4 hours as needed for COPD Full code Heparinized in Last Scourer Cardiac diet
--- NOTE | 2024-07-29 14:59 | PC.NURSE ---
arrived by w/c from ICU
[2024-07-29] MEDS: IOPAMIDOL-370 (76%);100ML BOTTLE 110 ML IV (15:19)
[2024-07-29 15:22] LABS: CATHL Activated Clotting Time 263 SEC (74-125)
--- NOTE | 2024-07-29 15:48 | EXP.CARD.CON ---
History of Present Illness History of Present Illness Consult date: 07/29/24 Requesting physician: Ramon Jules Consult reason: known to you Chief complaint: Chest pain, near syncope Additional Medical History:: 1. CAD A. Abnormal stress test, 2021 B. [facility], 10/08/2021, OLIVIA to critical proximal LAD bifurcating stent into ostial proximal large first diagonal. C. [facility], 10/09/2021, acute thrombosis of first diagonal with successful angioplasty restoring JAYY-3 flow. Plavix switched to Brilinta. D. [facility], 02/2023, normal with EF 58%. E. Near syncopal symptoms, 07/2024, same as in 2021 F. [facility], 07/29/2024, OLIVIA to mid LAD in-stent restenosis immediately distal to large diagonal artery takeoff. 2. Ex-smoker 3. History of GERD A. EGD, Dr. Benavidez, 2020, cricopharyngeal spasm status post dilation, nonerosive GERD with moderate esophageal dysmotility. B. EGD, 04/2024, Dr. Benavidez, mild cricopharyngeal spasm status post dilation, nonerosive GERD with moderate esophageal dysmotility, mild linear reactive gastropathy of the antrum. 4. Hyperlipidemia A. Statin intolerance with history of myalgias and cramps 5. 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 Hypertension A. Echocardiogram, 2021, EF 55% B. Echo, 2023, normal BiV systolic function with no significant valve disease. 7. Nocturnal hypoxemia with mild EVAN, sleep study, 09/2022 A. Recommended auto CPAP 8. Lymphedema with prior varicose vein surgery A. Chronic pneumatic compression device use at home History of present illness: 58-year-old white female underwent cardiac catheterization today with subsequent drug-eluting stent placement to LAD. Due to prior history of thrombosis within 24 hours of stenting in the past patient asked to remain in the hospital overnight for observation. She was started on Brilinta 90 mg twice daily in addition to her aspirin. She previously had a possible stent thrombosis due to being a Plavix nonresponder and was subsequently switched to Brilinta in the past. [facility] Disclaimer: The information contained in this section may have been updated after the patient was seen, as this information can be updated by other users. Medical History Near syncope Encounter for pre-operative cardiovascular clearance Foot neuroma Edema Angina pectoris Normal colonoscopy Myocardial infarction Lung disease Depression CHF (congestive heart failure) Arrhythmia Anxiety Dizziness HTN (hypertension) Coronary artery disease Sinus bradycardia Obesity Abnormal EKG Dyspnea Palpitations GERD (gastroesophageal reflux disease) Hyperlipidemia Surgical History Hx of cardiac cath History of arthroscopy of right shoulder H/O arthroscopy of left knee Family History (Updated 07/29/24 @ 15:43 by Kelsy Streeter RN) Family history of acute congestive heart failure No significant family history Family history of cancer Social History (Updated 07/29/24 @ 15:44 by Kelsy Streeter RN) Smoking Status: Current every day smoker tobacco type: cigarettes packs per day: 1 second hand exposure: No alcohol intake: never substance use type: denies use current occupational status: other Travel in the last 8 weeks: None household members: spouse housing: house 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 Have you lived/traveled outside US in past 30 days?: No Contact w/someone who lives/traveled outside US past 30 days?: No Exposure to someone with infectious disease in past 14 days?: No Do you have a fever (greater than 100.4 F or 38 C)?: No Have you tested positive for COVID-19: No Exposed to someone with COVID-19 in past 14 days?: No Do you have a sore throat?: No Do you have a cough?: No Do you have any weakness?: No Are you experiencing any nausea/vomitting?: No Do you have any diarrhea?: No Are you experiencing any unusual bleeding?: No Do you have any muscle aches/pain?: No Do you have any abdominal pain?: No Are you experiencing loss of taste or smell?: No Review of Systems Review of Systems Review of systems:: pertinent systems reviewed and negative unless documented below *Cardiovascular Cardiovascular: Reports chest pain and Reports dyspnea *Respiratory Respiratory: Reports dyspnea Exam Data for Last 24 hours Vital signs and Labs for Last 24 Hours: Temp Pulse Resp BP Pulse Ox O2 Del Method 98.2 F 67 18 114/65 99 Room Air 07/29/24 08:48 07/29/24 15:25 07/29/24 15:25 07/29/24 15:25 07/29/24 15:25 07/29/24 15:25 Laboratory Results - last 24 hr 07/29/24 08:56: WBC 9.9, RBC 4.56, Hgb 14.0, Hct 40.9, MCV 89.7, MCH 30.7, MCHC 34.2, RDW 12.7, Plt Count 262, MPV 10.3, Neut % (Auto) 53.5, Lymph % (Auto) 37.4, [place] % (Auto) 6.6, Eos % (Auto) 1.5, Baso % (Auto) 0.7, Neut # (Auto) 5.3, Lymph # (Auto) 3.7, [place] # (Auto) 0.7, Eos # (Auto) 0.2, Baso # (Auto) 0.1, Sodium 139, Potassium 4.1, Chloride 107, Carbon Dioxide 29, Anion Gap 7.1, BUN 17, Creatinine 0.80, Estimated Creat Clear 74, Estimated GFR 74, Est GFR ( Amer) 90, Glucose 90, Calcium 9.4 07/29/24 12:29: Activated Clotting Time 263 H* I & O for Last 24 hours: Intake & Output 07/27/24 07/28/24 07/29/24 07/30/24 11:59 11:59 11:59 11:59 Weight 276 lb Constitutional Constitutional: no acute distress *Routine Respiratory Exam Respiratory: Present CTA bilaterally *Routine Cardiovascular Exam Cardiovascular: Present RRR; Absent murmur, gallop or rubs Meds Home Medications and Allergies Home Medications ?Medication ?Instructions ?Recorded ?Confirmed ?Type ipratropium 0.5 mg-albuterol 3 mg 3 ml inhalation Q4-6H PRN 01/23/24 07/24/24 Rx (2.5 mg base)/3 mL nebulization shortness of breath or wheezing soln #90 mL aspirin 81 mg capsule 81 mg PO DAILY 04/19/24 07/24/24 History esomeprazole magnesium 40 mg See Rx Instructions .Route 05/24/24 07/24/24 Rx capsule,delayed release .COMPLEX #30 caps tizanidine 6 mg capsule 6 mg PO Q8H PRN muscle spasticity 05/24/24 07/24/24 Rx #90 caps evolocumab 140 mg/mL subcutaneous 140 mg SQ Q2W #3 mL 06/24/24 07/24/24 Rx syringe (Repatha Syringe) metoprolol succinate 25 mg See Rx Instructions .Route 06/27/24 07/24/24 Rx tablet,extended release 24 hr .COMPLEX #45 tabs famotidine 20 mg tablet 20 mg PO DAILY 90 days #90 tabs 06/28/24 07/24/24 Rx ropinirole 1 mg tablet See Rx Instructions .Route 06/28/24 07/24/24 Rx .COMPLEX 90 days #90 tabs venlafaxine 75 mg capsule,extended See Rx Instructions .Route 06/28/24 07/24/24 Rx release 24 hr .COMPLEX #90 caps budesonide-formoterol HFA 160 See Rx Instructions .Route 07/10/24 07/24/24 Rx mcg-4.5 mcg/actuation aerosol .COMPLEX #10.2 grams inhaler (Symbicort) spironolactone 25 mg tablet 25 mg PO DAILY #90 tabs 07/16/24 07/24/24 Rx varenicline tartrate 0.5 mg (11)-1 See Rx Instructions PO PER PKG DIR 07/16/24 07/24/24 Rx mg (42) tablets in a dose pack #53 tabs (Chantix Starting Month Box) hydrocodone 7.5 mg-acetaminophen 1 tab PO QID #120 tabs 07/24/24 Rx 325 mg tablet pregabalin 50 mg capsule 50 mg PO HS #30 caps 07/24/24 Rx ticagrelor 90 mg tablet (Brilinta) 90 mg PO BID #60 tabs 07/29/24 Rx New Prescriptions to Start Prescriptions: ticagrelor [Brilinta] Cole Douglas Allergies Allergy/AdvReac Type Severity Reaction Status Date / Time clopidogrel (From Plavix) Allergy Severe NON Verified 07/29/24 12:36 RESPONDER-STENT THROMBOSIS atorvastatin AdvReac Intermediate Abdominal Verified 07/29/24 12:36 Pain rosuvastatin (From Crestor) AdvReac Mild myalgia Verified 07/29/24 12:36 prasugrel (From Effient) AdvReac Verified 07/29/24 12:36 Assessment and Plan *Assessment and plan (1) Coronary artery disease: Status: Chronic Qualifiers: Coronary Disease-Associated Artery/Lesion type: [place] artery [place] vs. transplanted heart: [place] heart Associated angina: without angina Qualified Code(s): I25.10 - Atherosclerotic heart disease of [place] coronary artery without angina pectoris Category: Medical Code(s): I25.10 - Atherosclerotic heart disease of [place] coronary artery without angina pectoris (2) EVAN (obstructive sleep apnea): Status: Chronic Category: Medical Code(s): G47.33 - Obstructive sleep apnea (adult) (pediatric) (3) GERD (gastroesophageal reflux disease): Status: Chronic Qualifiers: Esophagitis presence: esophagitis presence not specified Qualified Code(s): K21.9 - Gastro-esophageal reflux disease without esophagitis Category: Medical Code(s): K21.9 - Gastro-esophageal reflux disease without esophagitis (4) Hyperlipidemia: Status: Chronic Qualifiers: Hyperlipidemia type: unspecified Qualified Code(s): E78.5 - Hyperlipidemia, unspecified Category: Medical Code(s): E78.5 - Hyperlipidemia, unspecified (5) Obesity: Status: Acute Qualifiers: Obesity type: unspecified obesity type Obesity classification: adult class 3 (BMI >= 40) Serious obesity comorbidity presence: unspecified whether serious comorbidity present Body mass index: BMI 40.0-44.9 Qualified Code(s): E66.01 - Morbid (severe) obesity due to excess calories; Z68.41 - Body mass index [BMI] 40.0-44.9, adult Category: Medical Code(s): E66.9 - Obesity, unspecified (6) HTN (hypertension): Status: Acute Qualifiers: Hypertension type: unspecified Qualified Code(s): I10 - Essential (primary) hypertension Category: Medical Code(s): I10 - Essential (primary) hypertension Plan 1. CAD -OLIVIA to LAD -DAPT with ASA/Brilinta 2. Hyperlipidemia -LDL 74 in 04/2024 -Continue Repatha 3. Hypertension Continue metoprolol, spironolactone 4. History of GERD -Continue esomeprazole and famotidine 5. Chronic lumbar pain with radiculopathy Monitor overnight. If stable then discharge home tomorrow with home medications plus Brilinta 90 mg twice daily.
[2024-07-29] MEDS: METOPROLOL SUCCINATE XL 25MG TABLET 12.5 MG PO (16:39)
[2024-07-29] MEDS: APAP/HYDROCODONE 325MG/7.5MG TAB 1 TAB PO ×2 (16:39→21:47)
[2024-07-29] MEDS: TIZANIDINE 4MG TABLET 6 MG PO (16:41)
[2024-07-29] MEDS: FLUTICASONE/SALMETEROL 250/50MCG DISKUS 1 PUFF IH (18:54)
[2024-07-29] MEDS: PANTOPRAZOLE 40MG TABLET 40 MG PO (20:24)
[2024-07-29] MEDS: ROPINIROLE 1MG TABLET 1 MG PO (20:24)
[2024-07-30] VITALS: BP 140/61; PULSE 59; PULSE 60; RESP 18; TEMP 36.4; O2SAT 97
[2024-07-30 04:00] VITALS: BP 120/60; PULSE 60; PULSE 65; RESP 15; TEMP 36.6; O2SAT 99; BMI 44.6
[2024-07-30 05:42] LABS: Basophils # 0.1 K/mm3 (0-0.2); Basophils % 0.7 % (0.1-2.0); Eosinophils # 0.2 K/mm3 (0.0-0.4); Eosinophils % 2.2 % (0.1-12.0); Hematocrit 39.9 % (37.0-47.0); Hemoglobin 13.2 g/dL (12.2-16.2); Lymphocytes # 2.8 K/mm3 (0.7-4.5); Lymphocytes % 38.5 % (10-50); Mean Corpuscular HGB Conc 33.1 g/dL (31.8-35.4); Mean Corpuscular Hemoglobin 30.3 pg (27.0-31.2); Mean Corpuscular Volume 91.7 fl (81-99); Mean Platelet Volume 10.6 fl (7.4-10.4); Monocytes # 0.5 K/mm3 (0.1-1.0); Monocytes % 6.7 % (1.7-9.3); Neutrophils # 3.8 K/mm3 (1.8-7.8); Neutrophils % 51.5 % (37.0-80.0); Platelet Count 236 K/mm3 (142-424); Red Blood Count 4.35 M/mm3 (4.20-5.40); White Blood Count 7.3 K/mm3 (4.8-10.8)
[2024-07-30 05:51] LABS: Anion Gap 7.1 mEq/L (5-15); Blood Urea Nitrogen 18 mg/dl (7-17); Calcium 9.3 mg/dl (8.4-10.2); Carbon Dioxide 29 mmol/L (22.0-30.0); Chloride 107 mmol/L (98-107); Creatinine Clearance Estimated 65 mL/min (50-200); Estimated Glomerular Filt Rate 65 ml/min (>60); GFR (African American) 78 ML/MIN (>60); Glucose 91 mg/dl (74-100); Potassium 4.1 mmoL/L (3.5-5.1); Sodium 139 mmol/L (136-145)
[2024-07-30] MEDS: FLUTICASONE/SALMETEROL 250/50MCG DISKUS 1 PUFF IH (06:25)
[2024-07-30 06:26] VITALS: O2SAT 98
[2024-07-30 08:00] VITALS: BP 123/61; PULSE 61; PULSE 70; RESP 12; TEMP 36.5; O2SAT 99
--- NOTE | 2024-07-30 09:26 | PC.NURSE ---
Patient removed heart monitor and refused attempt to replace it. States she is going home and she does not want to wear it
--- NOTE | 2024-07-30 09:29 | EXP.CARD.PN ---
Subjective Subjective Date: 07/30/24 Time: 09:29 Principal diagnosis: Outpatient coronary stenting Interval history: 58-year-old white female in bed in no acute distress. Right wrist looks good with no evidence of bleeding. Patient is anxious to go home. Exam Data for Last 24 hours Vital signs and Labs for Last 24 Hours: Temp Pulse Resp BP Pulse Ox O2 Del Method 97.7 F 61 12 123/61 99 Room Air 07/30/24 08:00 07/30/24 08:00 07/30/24 08:00 07/30/24 08:00 07/30/24 08:00 07/30/24 08:00 Laboratory Results - last 24 hr 07/29/24 08:56: WBC 9.9, RBC 4.56, Hgb 14.0, Hct 40.9, MCV 89.7, MCH 30.7, MCHC 34.2, RDW 12.7, Plt Count 262, MPV 10.3, Neut % (Auto) 53.5, Lymph % (Auto) 37.4, [place] % (Auto) 6.6, Eos % (Auto) 1.5, Baso % (Auto) 0.7, Neut # (Auto) 5.3, Lymph # (Auto) 3.7, [place] # (Auto) 0.7, Eos # (Auto) 0.2, Baso # (Auto) 0.1 07/29/24 12:29: Activated Clotting Time 263 H* 07/30/24 04:57: WBC 7.3 D, RBC 4.35, Hgb 13.2, Hct 39.9, MCV 91.7, MCH 30.3, MCHC 33.1, RDW 13.0, Plt Count 236, MPV 10.6 H, Neut % (Auto) 51.5, Lymph % (Auto) 38.5, [place] % (Auto) 6.7, Eos % (Auto) 2.2, Baso % (Auto) 0.7, Neut # (Auto) 3.8, Lymph # (Auto) 2.8, [place] # (Auto) 0.5, Eos # (Auto) 0.2, Baso # (Auto) 0.1, Sodium 139, Potassium 4.1, Chloride 107, Carbon Dioxide 29, Anion Gap 7.1, BUN 18 H, Creatinine 0.90, Estimated Creat Clear 65, Estimated GFR 65, Est GFR ( Amer) 78, Glucose 91, Calcium 9.3 I & O for Last 24 hours: Intake & Output 07/27/24 07/28/24 07/29/24 07/30/24 11:59 11:59 11:59 11:59 Intake Total 1200 / 1200 Output Total 0 / 0 Balance 1200 / 1200 Weight 276 lb 278 lb 0.046 oz Constitutional Constitutional: no acute distress *Routine Respiratory Exam Respiratory: Present CTA bilaterally *Routine Cardiovascular Exam Cardiovascular: Present RRR Progress Note: A&P Assessment and plan (1) Coronary artery disease: Status: Chronic (2) GERD (gastroesophageal reflux disease): Status: Acute (3) Hyperlipidemia: Status: Chronic (4) Obstructive airway disease: Status: Chronic (5) HTN (hypertension): Status: Acute (6) Morbid obesity with body mass index (BMI) of 40.0 to 49.9: Status: Chronic (7) EVAN (obstructive sleep apnea): Status: Chronic (8) Fibromyalgia: Status: Acute (9) Tobacco use: Status: Acute (10) Coronary stent thrombosis: Problem details: History of in-stent thrombosis in 2021 Status: Resolved Assessment and Plan Assessment and Plan for All Diagnoses:: 1. CAD -OLIVIA to LAD -DAPT with ASA/Brilinta 2. Hyperlipidemia -LDL 74 in 04/2024 -Continue Repatha 3. Hypertension -Continue metoprolol, spironolactone 4. History of GERD -Continue esomeprazole and famotidine 5. Chronic lumbar pain with radiculopathy Clinically stable for discharge from cardiology standpoint. Follow-up in our office in 1 week. Home medication recommendations: Aspirin 81 mg daily Brilinta 90 mg twice daily Metoprolol succinate 25 mg one half tab twice daily Spironolactone 25 mg daily Repatha 140 mg SQ every 2 weeks Esomeprazole 40 mg daily
[2024-07-30] MEDS: FAMOTIDINE 20MG TABLET 20 MG PO (09:33)
[2024-07-30] MEDS: SPIRONOLACTONE 25MG TABLET 25 MG PO (09:33)
[2024-07-30] MEDS: ASPIRIN EC 81MG TABLET 81 MG PO (09:33)
[2024-07-30] MEDS: VENLAFAXINE XR 75MG CAPSULE 75 MG PO (09:33)
[2024-07-30] MEDS: METOPROLOL SUCCINATE XL 25MG TABLET 12.5 MG PO (09:34)
[2024-07-30] MEDS: APAP/HYDROCODONE 325MG/7.5MG TAB 1 TAB PO (09:38)
--- NOTE | 2024-07-30 10:05 | PC.NURSE ---
Pt refuses to wear telemetry. Student nurse, Santana Mendoza will be providing care under my supervision.
[2024-07-30] MEDS: TICAGRELOR 90MG TABLET 90 MG PO (10:32)
--- NOTE | 2024-07-30 11:39 | P.DS_ITS ---
General Admission date:: 07/29/24 HPI HPI HPI: 58-year-old female brought in for elective left heart cath. Found to have LAD lesion. Stent placed. Reports having had stent placed several years ago and had in-stent thrombosis less than 24 hours after placement. Thought to be a Plavix nonresponder. Cardiology requested admission overnight to monitor given fresh stent. Patient very anxious. Continuing aspirin and Plavix. On evaluation, patient denies any chest pain, shortness of breath, nausea or vomiting. Does smoke a pack a day. Does not drink. No nausea or vomiting. Alert and oriented x 4. Family at bedside Hospital Course Hospital Course Hospital Course: Ms. Carmona is a 58-year-old female with history of CAD, hypertension, tobacco use disorder, obesity. Presented for elective outpatient left heart cath due to angina pectoris and CAD. Successful stenting to LAD. Discussed case with cardiology, request admission for monitoring overnight due to previous in-stent thrombosis in less than 24 hours. #CAD #Hypertension #Hyperlipidemia #History of in-stent thrombosis - Left heart cath performed due to angina pectoris and CAD. Found to have concentric 80 to 90% in-stent stenosis of the LAD. Successful stenting of the proximal to mid LAD reduced to 0%. ? Cardiology consulted, continue antiplatelet therapy with Brilinta 90 mg twice daily and aspirin 81 mg daily. - Continue spironolactone 25 mg daily for fluid management. ? Patient remained stable. Medically stable for discharge. Will follow-up with cardiology within 1 week. Tobacco use disorder: Strongly encouraged to avoid tobacco products. Will use nicotine gum at home. Morbid obesity complicates all aspects of her care Famotidine 20 mg daily for GERD Hydrocodone and Lyrica per home regimen for chronic pain Exam Data for Last 24 hours Vital signs and Labs for Last 24 Hours: Temp Pulse Resp BP Pulse Ox O2 Del Method 97.7 F 61 12 123/61 99 Room Air 07/30/24 08:00 07/30/24 08:00 07/30/24 08:00 07/30/24 08:00 07/30/24 08:00 07/30/24 11:00 Laboratory Results - last 24 hr 07/29/24 12:29: Activated Clotting Time 263 H* 07/30/24 04:57: WBC 7.3 D, RBC 4.35, Hgb 13.2, Hct 39.9, MCV 91.7, MCH 30.3, MCHC 33.1, RDW 13.0, Plt Count 236, MPV 10.6 H, Neut % (Auto) 51.5, Lymph % (Auto) 38.5, [place] % (Auto) 6.7, Eos % (Auto) 2.2, Baso % (Auto) 0.7, Neut # (Auto) 3.8, Lymph # (Auto) 2.8, [place] # (Auto) 0.5, Eos # (Auto) 0.2, Baso # (Auto) 0.1, Sodium 139, Potassium 4.1, Chloride 107, Carbon Dioxide 29, Anion Gap 7.1, BUN 18 H, Creatinine 0.90, Estimated Creat Clear 65, Estimated GFR 65, Est GFR ( Amer) 78, Glucose 91, Calcium 9.3 I & O for Last 24 hours: Intake & Output 07/27/24 07/28/24 07/29/24 07/30/24 23:59 23:59 23:59 23:59 Intake Total 360 / 600 840 / 840 Output Total 0 / 0 Balance 360 / 600 840 / 840 Weight 125.191 kg 126.1 kg Constitutional Constitutional: no acute distress and obese *Routine HEENT Exam Head: Present normocephalic Eye: Present EOMI and PERRL ENT: Present mucous membranes moist *Routine Neck Exam Neck: Present supple; Absent lymphadenopathy *Routine Respiratory Exam Respiratory: Present CTA bilaterally *Routine Cardiovascular Exam Cardiovascular: Present RRR *Routine Abdominal Exam Abdominal: Present soft and normoactive bowel sounds; Absent tenderness *Routine Extremities Exam Extremities: Absent cyanosis, clubbing or edema *Routine Skin Exam Skin: Present warm; Absent rash *Routine Neurological Exam Neurological: Present alert and oriented X3 Results Data Completed and Pending Labs on day of discharge: Labs from last 24 hours 07/30/24 07/29/24 04:57 12:29 WBC 7.3 D RBC 4.35 Hgb 13.2 Hct 39.9 MCV 91.7 MCH 30.3 MCHC 33.1 RDW 13.0 Plt Count 236 MPV 10.6 H Neut % (Auto) 51.5 Lymph % (Auto) 38.5 [place] % (Auto) 6.7 Eos % (Auto) 2.2 Baso % (Auto) 0.7 Neut # (Auto) 3.8 Lymph # (Auto) 2.8 [place] # (Auto) 0.5 Eos # (Auto) 0.2 Baso # (Auto) 0.1 Activated Clotting Time 263 H* Sodium 139 Potassium 4.1 Chloride 107 Carbon Dioxide 29 Anion Gap 7.1 BUN 18 H Creatinine 0.90 Estimated Creat Clear 65 Estimated GFR 65 Est GFR ( Amer) 78 Glucose 91 Calcium 9.3 DS: Diagnosis Discharge Diagnosis (1) Coronary artery disease: Status: Chronic Code(s): I25.10 - Atherosclerotic heart disease of [place] coronary artery without angina pectoris Qualifiers: Coronary Disease-Associated Artery/Lesion type: [place] artery [place] vs. transplanted heart: [place] heart Associated angina: without angina Qualified Code(s): I25.10 - Atherosclerotic heart disease of [place] coronary artery without angina pectoris (2) GERD (gastroesophageal reflux disease): Status: Acute Code(s): K21.9 - Gastro-esophageal reflux disease without esophagitis (3) Hyperlipidemia: Status: Chronic Code(s): E78.5 - Hyperlipidemia, unspecified Qualifiers: Hyperlipidemia type: unspecified Qualified Code(s): E78.5 - Hyperlipidemia, unspecified (4) Obstructive airway disease: Status: Chronic Code(s): J44.9 - Chronic obstructive pulmonary disease, unspecified Qualifiers: COPD type: unspecified COPD Qualified Code(s): J44.9 - Chronic obstructive pulmonary disease, unspecified (5) HTN (hypertension): Status: Acute Code(s): I10 - Essential (primary) hypertension Qualifiers: Hypertension type: unspecified Qualified Code(s): I10 - Essential (primary) hypertension (6) Morbid obesity with body mass index (BMI) of 40.0 to 49.9: Status: Chronic Code(s): E66.01 - Morbid (severe) obesity due to excess calories (7) EVAN (obstructive sleep apnea): Status: Chronic Code(s): G47.33 - Obstructive sleep apnea (adult) (pediatric) (8) Fibromyalgia: Status: Acute Code(s): M79.7 - Fibromyalgia (9) Tobacco use: Status: Acute Code(s): Z72.0 - Tobacco use (10) Coronary stent thrombosis: Status: Resolved Code(s): T82.867A - Thrombosis due to cardiac prosthetic devices, implants and grafts, initial encounter Qualifiers: Encounter type: initial encounter Qualified Code(s): T82.867A - Thrombosis due to cardiac prosthetic devices, implants and grafts, initial encounter Problem details: History of in-stent thrombosis in 2021 Meds Home Medications and Allergies Home Medications ?Medication ?Instructions ?Recorded ?Confirmed ?Type ipratropium 0.5 mg-albuterol 3 mg 3 ml inhalation Q4-6H PRN 01/23/24 07/30/24 Rx (2.5 mg base)/3 mL nebulization shortness of breath or wheezing soln #90 mL aspirin 81 mg capsule 81 mg PO DAILY 04/19/24 07/30/24 History esomeprazole magnesium 40 mg See Rx Instructions .Route 05/24/24 07/30/24 Rx capsule,delayed release .COMPLEX #30 caps tizanidine 6 mg capsule 6 mg PO Q8H PRN muscle spasticity 05/24/24 07/30/24 Rx #90 caps evolocumab 140 mg/mL subcutaneous 140 mg SQ Q2W #3 mL 06/24/24 07/30/24 Rx syringe (Repatha Syringe) metoprolol succinate 25 mg See Rx Instructions .Route 06/27/24 07/30/24 Rx tablet,extended release 24 hr .COMPLEX #45 tabs famotidine 20 mg tablet 20 mg PO DAILY 90 days #90 tabs 06/28/24 07/30/24 Rx ropinirole 1 mg tablet See Rx Instructions .Route 06/28/24 07/30/24 Rx .COMPLEX 90 days #90 tabs budesonide-formoterol HFA 160 See Rx Instructions .Route 07/10/24 07/30/24 Rx mcg-4.5 mcg/actuation aerosol .COMPLEX #10.2 grams inhaler (Symbicort) spironolactone 25 mg tablet 25 mg PO DAILY #90 tabs 07/16/24 07/30/24 Rx varenicline tartrate 0.5 mg (11)-1 See Rx Instructions PO PER PKG DIR 07/16/24 07/30/24 Rx mg (42) tablets in a dose pack #53 tabs (Chantix Starting Month Box) hydrocodone 7.5 mg-acetaminophen 1 tab PO QID #120 tabs 07/24/24 07/30/24 Rx 325 mg tablet ticagrelor 90 mg tablet (Brilinta) 90 mg PO BID #60 tabs 07/29/24 Rx venlafaxine 37.5 mg 37.5 mg PO DAILY 07/30/24 07/30/24 History capsule,extended release 24 hr New Prescriptions to Start Prescriptions: ticagrelor [Brilinta] Cole Douglas Allergies Allergy/AdvReac Type Severity Reaction Status Date / Time clopidogrel (From Plavix) Allergy Severe NON Verified 07/29/24 12:36 RESPONDER-STENT THROMBOSIS atorvastatin AdvReac Intermediate Abdominal Verified 07/29/24 12:36 Pain rosuvastatin (From Crestor) AdvReac Mild myalgia Verified 07/29/24 12:36 prasugrel (From Effient) AdvReac Verified 07/29/24 12:36 Discharge Plan Disposition Patient Disposition: Home, Self-Care Condition: Fair Follow up Plan Follow up with: Cole Douglas MD [Staff Physician] - 08/05/24 10:30 am Prescriptions/Medication Reconciliation: New Brilinta 90 mg Tablet 90 mg PO BID Qty: 60 6RF Continued spironolactone 25 mg tablet 25 mg PO DAILY Qty: 90 3RF varenicline tartrate [Chantix Starting Month Box] 0.5 mg (11)- 1 mg (42) tablets,dose pack See Rx Instructions PO PER PKG DIR Qty: 53 0RF Rx Instructions: PO PER PKG DIR esomeprazole magnesium 40 mg capsule,delayed release(DR/EC) See Rx Instructions .ROUTE .COMPLEX Qty: 30 4RF Dose Instruction: TAKE 1 CAPSULE BY MOUTH ONCE DAILY Rx Instructions: TAKE 1 CAPSULE BY MOUTH ONCE DAILY tizanidine 6 mg capsule 6 mg PO Q8H PRN (Reason: muscle spasticity) Qty: 90 1RF ipratropium-albuterol 0.5 mg-3 mg(2.5 mg base)/3 mL solution for nebulization 3 ml inhalation Q4-6H PRN (Reason: shortness of breath or wheezing) Qty: 90 1RF Repatha Syringe 140 mg/mL syringe 140 mg SQ Q2W Qty: 3 2RF metoprolol succinate 25 mg tablet extended release 24 hr See Rx Instructions .ROUTE .COMPLEX Qty: 45 3RF Dose Instruction: TAKE 1/2 TABLET BY MOUTH ONCE DAILY Rx Instructions: TAKE 1/2 TABLET BY MOUTH ONCE DAILY ropinirole 1 mg tablet See Rx Instructions .ROUTE .COMPLEX 90 Days Qty: 90 1RF Dose Instruction: TAKE 1 TABLET BY MOUTH AT BEDTIME NIGHTLY Rx Instructions: TAKE 1 TABLET BY MOUTH AT BEDTIME NIGHTLY famotidine 20 mg tablet 20 mg PO DAILY 90 Days Qty: 90 1RF budesonide-formoterol [Symbicort] 160-4.5 mcg/actuation HFA aerosol inhaler See Rx Instructions .ROUTE .COMPLEX Qty: 10.2 0RF Dose Instruction: USE 2 INHALATIONS BY MOUTH TWICE A DAY FOR ASTHMA ..RINSE MOUTH AFTER EACH USE Rx Instructions: USE 2 INHALATIONS BY MOUTH TWICE A DAY FOR ASTHMA ..RINSE MOUTH AFTER EACH USE aspirin 81 mg Capsule 81 mg PO DAILY hydrocodone-acetaminophen 7.5-325 mg tablet 1 tab PO QID Qty: 120 0RF No Action venlafaxine 37.5 mg capsule,extended release 24hr 37.5 mg PO DAILY Other Ambulatory Orders: Basic Metabolic Panel (Routine) Timeframe: 1 Week Facility: [facility] - Location: Laboratory Ordered By: Cole Douglas Complete Blood Count Auto Diff (Routine) Timeframe: 1 Week Facility: [facility] - Location: Laboratory Ordered By: Cole Douglas Problem Reconciliation Problems Reviewed?: Yes Patient Discharge Instructions Patient Instructions: DI for Cardiac Catheterization, DI for Surgical Site Infection, DI for Moderate Sedation, DI for Post-Surgical Bleeding Print Language: [place] Providers Primary Care Provider: Angeles Hartman Admit Provider: Cole Douglas Attending Provider: Ramon Jules
--- NOTE | 2024-07-31 10:59 | SW/DCPLANNER ---
Spoke with patient on the phone. Patient stated that she is doing well just having trouble being short of breath. Patient stated that she was able to get her new medicine from [facility]. Patient stated that she is aware of her upcoming appointments. Patient stated that she has no concerns or questions at this time. Christine Brock
== END 2024-07-30 13:05 | disposition home or self-care (01) ==
LOC: 2ND 14:12
PROVIDERS: Admitting Provider Internal Medicine; PCP Nurse Practitioner Family; Visit Provider Internal Medicine Adolescent Medicine
DX: I25.110 Atherosclerotic heart disease of native coronary artery with unstable angina pectoris (principal); R55 Syncope and collapse; T82.855A Stenosis of coronary artery stent, initial encounter; I50.9 Heart failure, unspecified; Z95.5 Presence of coronary angioplasty implant and graft; K21.9 Gastro-esophageal reflux disease without esophagitis; E78.5 Hyperlipidemia, unspecified; I11.0 Hypertensive heart disease with heart failure; I25.2 Old myocardial infarction; J44.9 Chronic obstructive pulmonary disease, unspecified; E66.01 Morbid (severe) obesity due to excess calories; G47.33 Obstructive sleep apnea (adult) (pediatric); M79.7 Fibromyalgia; Z68.41 Body mass index [BMI] 40.0-44.9, adult; F17.210 Nicotine dependence, cigarettes, uncomplicated; Y83.1 Surgical operation with implant of artificial internal device as the cause of abnormal reaction of the patient, or of later complication, without mention of misadventure at the time of the procedure; Z79.899 Other long term (current) drug therapy; Z88.8 Allergy status to other drugs, medicaments and biological substances
CPT/HCPCS: 80048; 85025; 85347; 92928; 94640; 99152; 99153; C1725; C1769; C1874; C9600; G0378; J1200; J1644; J3010; Q9967

== ENCOUNTER 2024-08-01 15:24 | Outpatient (CLI) | payer MEDICARE, SELFPAY ==
[2024-08-01 16:11] LABS: Basophils # 0.1 K/mm3 (0-0.2); Basophils % 0.6 % (0.1-2.0); Eosinophils # 0.2 K/mm3 (0.0-0.4); Eosinophils % 1.6 % (0.1-12.0); Hematocrit 41.5 % (37.0-47.0); Hemoglobin 14.4 g/dL (12.2-16.2); Lymphocytes # 3.5 K/mm3 (0.7-4.5); Lymphocytes % 31.6 % (10-50); Mean Corpuscular HGB Conc 34.7 g/dL (31.8-35.4); Mean Corpuscular Hemoglobin 30.6 pg (27.0-31.2); Mean Corpuscular Volume 88.3 fl (81-99); Mean Platelet Volume 10.9 fl (7.4-10.4); Monocytes # 0.7 K/mm3 (0.1-1.0); Monocytes % 6.5 % (1.7-9.3); Neutrophils # 6.5 K/mm3 (1.8-7.8); Neutrophils % 59.3 % (37.0-80.0); Platelet Count 248 K/mm3 (142-424); Red Cell Distribution Width 12.3 % (11.5-17.5)
[2024-08-01 17:03] LABS: Chloride 105 mmol/L (98-107); Potassium 4.6 mmoL/L (3.5-5.1); Sodium 139 mmol/L (136-145)
[2024-08-01 17:06] LABS: Anion Gap 14.6 mEq/L (5-15); Blood Urea Nitrogen 19 mg/dl (7-17); Calcium 9.9 mg/dl (8.4-10.2); Carbon Dioxide 24 mmol/L (22.0-30.0); Estimated Glomerular Filt Rate 65 ml/min (>60); GFR (African American) 78 ML/MIN (>60); Glucose 90 mg/dl (74-100)
== END 2024-08-01 23:59 | disposition home or self-care (01) ==
LOC: LAB 15:25
PROVIDERS: PCP Nurse Practitioner Family; Visit Provider Internal Medicine
DX: Z95.5 Presence of coronary angioplasty implant and graft (principal); I25.10 Atherosclerotic heart disease of native coronary artery without angina pectoris; E78.5 Hyperlipidemia, unspecified
CPT/HCPCS: 36415; 80048; 85025

== ENCOUNTER 2024-08-15 14:36 | Outpatient (CLI) | payer MEDICARE, SELFPAY ==
--- NOTE | 2024-08-15 14:45 | MM_ITS ---
PROCEDURE INFORMATION: Exam: MG Bilateral Screening 3D Mammography Exam date and time: 08/15/2024 2:45 PM Age: 58 years old Clinical indication: Screening examination. TECHNIQUE: Imaging protocol: Bilateral Screening tomosynthesis and 2D mammography including computer-aided detection (CAD) when performed. COMPARISON: 1. MG MM DIG SCREENING MAMM BI W/CAD 07/24/2023 3:50 PM 2. MG MM DIG SCREENING MAMM BI W/CAD 07/11/2022 4:23 PM FINDINGS: MAMMOGRAPHY: Breast composition: There are scattered areas of fibroglandular density. Mass: None. Architectural distortion: None. Calcifications: No suspicious calcifications. Asymmetric density: None. Skin thickening: None. Axillary adenopathy: None. IMPRESSION: No mammographic evidence of malignancy. Annual screening is recommended unless otherwise clinically indicated. ASSESSMENT: BI-RADS Category 1: Negative.
--- OUTSIDE RECORDS SUMMARY | 2024-08-15 23:36 | XMS_ITS | Clinical Summary ---
Author Organization [facility] , [facility] Address [address] [place] [address] Phone Care Team Providers Care Powder Carrier Name Role Phone IGNACIO HARTMAN Unavailable [phone] Nikunj HA, Joey Vieira Unavailable [phone] Reason for Visit and Chief Complaint The Chief Complaint is: Right thumb and hand pain Problems Includes: Problems addressed during this encounter and other active Problems Current Visit Onset Date Resolved Date Provider Conditio n Status Lower Back Pain 01/17/2023 Richard Palomo PA-C A ctive Last Documented On 3 2:28PM ; [facility], [facility] Lower Back Pain 10/23/2020 11/15/2021 Janell Vila PA-C Resolved Last Documented On 2 9:13AM ; [facility], [facility] Past Visits Onset Date Resolved Date Provider Condition Status Joint Pain Right Thumb 08/23/2023 Karlos de paz PA-C Active Last Documented On 4 10:36AM ; [facility], [facility] Joint Pain in the Left Hip 06/14/2022 Richard alves PA-C Active Last Documented On 3 3:30PM ; [facility], [facility] Joint Pain in the Right Knee 03/25/2022 Janell Vila PA-C Active Last Documented On 2 12:58PM ; [facility], [facility] Plan of Treatment Future Appointments Date Time Location Provi talat Follow Up 09/04/2024 2:00PM [facility] Last Documented On 5 1:57PM ; [facility], [facility] Instructions to patient Intervention and counseling on cessation of tobacco use Last Documented On 4 1:05PM ; [facility], [facility] Lose weight Last Documented On 4 1:05PM ; [facility], [facility] Assessments Includes: Assessments from this encounter Findings - Overweight - Last Documented On 03/06/2024 4:06PM ; [facility], [facility] 58-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 The patient has been responding well to injections. She was having minimal discomfort at exam today. She may also be developing right pre trigger thumb, there is no triggering or locking on exam. Discussed with her that since her symptoms are not extremely symptomatic at this time, we will hold off on an injection until symptoms worsen. The patient understands in his happy with this plan. Tentatively have her follow up in 3 months. She understands with any worsening symptoms she can come in sooner. - Last Documented On 03/06/2024 4:06PM ; [facility], [facility] Instructions Includes: Instructions from this encounter Instructions to patient Intervention and counseling on cessation of tobacco use Last Documented On 4 1:05PM ; [facility], [facility] Lose weight Last Documented On 4 1:05PM ; [facility], [facility] Medical Equipment - Implanted Devices Includes: Current Devices No Medical Equipment Recorded Medications Includes: Medications discussed during this encounter and other current Medications Current Medications (continue as prescribed) Naproxen 500 MG Oral Tablet 06/24/2023 Provider: IGNACIO HARTMAN Diagnosis: Last Documented On 4 10:41AM By Geni Johns ; [facility], [facility] HYDROcodone-Acetaminophen 5-325 MG Oral Tablet 024 Provider: Diagnosis: Last Documented On 4 10:41AM By Geni Johns ; [facility], [facility] Repatha SureClick 140 MG/ML Subcutaneous Solution Auto-injector 06/08/2023 Provider: Diagnosis: Last Documented On 4 10:41AM By Geni Johns ; [facility], [facility] Pantoprazole Sodium 40 MG Or al Tablet Delayed Release 06/06/2023 Provider: IGNACIO HARTMAN Diagnosis: Last Documented On 4 10:41AM By Geni Johns ; [facility] Sertraline HCl 100 MG Oral Tablet 06/06/2023 Provide r: IGNACIO HARTMAN Diagnosis: Last Documented On 4 10:41AM By Geni Johns ; [facility] Fluconazole 100 MG Oral Tablet 06/06/2023 Provider: IGNACIO HARTMAN Diagnosis: Last Documented On 4 10:41AM By Geni Johns ; [facility] Ondansetron 4 MG Oral Tablet Disintegrating 06/06/2023 Provider: IGNACIO HARTMAN Diagnosis: Last Documented On 4 10:41AM By Geni Johns ; [facility] Albuterol Sulfate (2.5 MG/3M L) 0.083% Inhalation Nebulization solution 05/15/2023 Provider: INGACIO HARTMAN Diagnosis: Last Documented On 4 10:41AM By Geni Johns ; [facility] Famotidine 20 MG Oral Tablet 05/12/2023 Provider: IGNACIO HARTMAN Diagnosis: Last Documented On 4 10:41AM By Geni Johns ; [facility] Nystatin 933027 UNIT/ML Mouth/Throat Suspension 2023 Provider: IGNACIO HARTMAN Diagnosis: Last Documented On 4 10:41AM By Geni Johns ; [facility], [facility] Rosuvastatin Calcium 10 MG Oral Tablet 02/23/2023 Pr ovider: Diagnosis: Last Documented On 4 10:41AM By Geni Johns ; [facility] Pregabalin 50 MG Oral Capsule 02/13/2023 Provider: IGNACIO HARTMAN Diagnosis: Last Documented On 4 10:41AM By Geni Johns ; [facility] Amitriptyline HCl 10 MG Oral Tablet 01/10/2023 Provi talat: IGNACIO SPEARNER Diagnosis: Last Documented On 3 11:02AM By Geni Johns ; [facility] Prasugrel HCl 10 MG Oral Tablet 01/03/2023 Provider: Diagnosis: Last Documented On 4 10:41AM By Geni Johns ; [facility], [facility] DULoxetine HCl 30 MG Oral Ca psule Delayed Release Particles 11/04/2022 Provider: IGNACIO HARTMAN Diagnosis: Last Documented On 4 10:41AM By Geni Johns ; [facility], [facility] Carvedilol 3.125 MG Oral Tablet 09/23/2022 Provider: Diagnosis: Last Documented On 4 10:41AM By Geni Johns ; [facility], [facility] Esomeprazole Magnesium 40 MG Oral Capsule Delayed Rele ase 06/24/2022 Provider: Diagnosis: Last Documented On 3 10:19AM By Selina Lucas ; [facility], [facility] tiZANidine HCl 2 MG Oral Tablet 06/24/2022 Provider: Diagnosis: Last Documented On 3 10:19AM By Selina Lucas ; [facility], [facility] Past Medications on file Meloxicam 15 MG Oral Tablet 06/30/2023 - 07/30/2023 Pr ovider: Richard Palomo PA-C Diagnosis: Take t tablet by mouth once a day Last Documented On 4 11:20AM By Geni Johns ; [facility], [facility] Medications Administered Includes: Administered Medications from this encounter No Administered Medications Recorded Vital Signs Includes: Vital Signs from this encounter Vital Name 03/06/2024 01:06P Height (in) 67 Weight (lb) 257 Body Mass Index 40.3 Body Surface Area 2.2 Note: KL Last Documented: On 03/06/2024 1:06PM ; [facility], [facility] Results Includes: Results discussed during this encounter No Results Recorded For Specified Dates History of Present Illness Includes: History of Present Illness from this encounter HPI Mela Neves is a 58 year old female. - Symptoms GRINDING. - Allergy list reviewed - Problem list reviewed - Medication list reviewed - Previous history of new onset pain Injury is not work related or an automotive accident - Patient pain level from 1-10: 7 BETTER WITH REST WORSE WITH ACTIVITIES ? No previous treatment. - - Review of medications documented Medications used for this condition: 58-year-old female here for follow-up of her right CMC arthrosis. The patient had an injection in the 1st CMC last visit. The patient states that she was having tolerable base of thumb pain. She states she was more good days than bad days. She wears a brace occasionally which does help. She was also developed some stiffness in the thumb and a little soreness at the thumb A1 skye. Denies any triggering or locking of the thumb. She denies any new injury or trauma to the hand. Social History Description Last Updated Tobacco use 06/24/2022 Last Documented On 4 1:05PM ; [facility] Tobacco non-user 03/25/2022 Last Documented On 4 1:05PM ; [facility] Exercising regularly 03/25/2022 Last Documented On 4 1:05PM ; [facility] No recent change in diet 03/25/2022 Last Documented On 4 1:05PM ; [facility] Not a smoker 03/25/2022 Last Documented On 4 1:05PM ; [facility] Not using alcohol 03/25/2022 Last Documented On 4 1:05PM ; [facility] Not using drugs 03/25/2022 Last Documented On 4 1:05PM ; [facility] Non-smoker 12/08/2021 Last Documented On 4 1:05PM ; [facility] Caffeine use 11/15/2021 Last Documented On 4 1:05PM ; [facility] Yes, current smoker. 11/15/2021 Last Documented On 4 1:05PM ; [facility] Never drank alcohol 11/15/2021 Last Documented On 4 1:05PM ; [facility] Never used drugs 11/15/2021 Last Documented On 4 1:05PM ; [facility] No recent change in diet 12/08/2020 Last Documented On 4 1:05PM ; [facility] Yes, current smoker. 12/08/2020 Last Documented On 4 1:05PM ; [facility], [facility] Smoking Status Unknown Procedures and Surgical History Includes: Procedures from this encounter Procedures Code Diagnosis Performing Provider Service L ocation Service Date intervention and counseling on cessation of tobacco use 4000F Last Documented On 4 1:05PM ; [facility], [facility] use of tobacco assessment performed 1000F Last Documented On 4 1:05PM ; [facility], [facility] review of medications documented 1160F Last Documented On 4 1:05PM ; [facility], [facility] an X-ray was performed 84821 Last Documented On 4 1:05PM ; [facility], [facility] brace Last Documented On 4 1:05PM ; [facility], [facility] Surgical History Last Updated History of History of Gallbladder 2021 Last Documented On 4 1:05PM ; [facility], [facility] History of shoulder arthroplasty 022 Last Documented On 4 1:05PM ; [facility], [facility] History of total knee arthroplasty 11/15 Last Documented On 4 1:05PM ; [facility], [facility] History of Past Surgical History: 2021 Last Documented On 4 1:05PM ; [facility], [facility] Medical History Includes: Medical History addressed during this encounter Description Last Updated No recent immunization for flu 2 Last Documented On 4 1:05PM ; [facility], [facility] No recent immunization for pneumococcal pneumonia 03/25/2022 Last Documented On 4 1:05PM ; [facility], [facility] History of arthritis 11/15/2021 Last Documented On 4 1:05PM ; [facility], [facility] History of asthma 11/15/2021 Last Documented On 4 1:05PM ; [facility], [facility] History of depression 11/15/2021 Last Documented On 4 1:05PM ; [facility], [facility] History of heart disease 11/15/2021 Last Documented On 4 1:05PM ; [facility] History of History of Blood Clots 2021 Last Documented On 4 1:05PM ; [facility] History of History of Heart Attack / Str giselle 11/15/2021 Last Documented On 4 1:05PM ; [facility] History of osteoporosis 11/15/2021 Last Documented On 4 1:05PM ; [facility] Arthritis 11/15/2021 Last Documented On 4 1:05PM ; [facility] Asthma 11/15/2021 Last Documented On 4 1:05PM ; [facility] Depression 11/15/2021 Last Documented On 4 1:05PM ; [facility] Heart disease 11/15/2021 Last Documented On 4 1:05PM ; [facility] Heartburn / Acid Reflux 11/15/2021 Last Documented On 4 1:05PM ; [facility] History of Blood Clots 11/15/2021 Last Documented On 4 1:05PM ; [facility] History of Gallbladder 11/15/2021 Last Documented On 4 1:05PM ; [facility] History of Heart Attack / Stroke 022 Last Documented On 4 1:05PM ; [facility] Osteoporosis 11/15/2021 Last Documented On 4 1:05PM ; [facility] Shoulder arthroplasty 11/15/2021 Last Documented On 4 1:05PM ; [facility] Total knee arthroplasty 11/15/2021 Last Documented On 4 1:05PM ; [facility], [facility] Family History Includes: Family History addressed during this encounter Description Last Updated Family history of cancer 11/15/2021 Last Documented On 4 1:05PM ; [facility] Family history of heart disease 11/16/19 22 Last Documented On 4 1:05PM ; [facility] Family history of rheumatoid arthritis 0 11/15/2021 Last Documented On 4 1:05PM ; [facility] Maternal grandfather's history of family history of heart disease 11/15/2021 Last Documented On 4 1:05PM ; [facility] Maternal grandmother's history of family history of heart disease 11/15/2021 Last Documented On 4 1:05PM ; [facility] Maternal grandmother's history of rheuma toid arthritis 11/15/2021 Last Documented On 4 1:05PM ; [facility] Maternal history of family history of ca ncer 11/15/2021 Last Documented On 4 1:05PM ; [facility] Maternal history of family history of he art disease 11/15/2021 Last Documented On 4 1:05PM ; [facility] Paternal grandfather's history of family history of heart disease 11/15/2021 Last Documented On 4 1:05PM ; [facility] Diabetes mellitus 12/08/2020 Last Documented On 4 1:05PM ; [facility], [facility] Review of Systems Includes: Review of Systems from this encounter Systemic: Feeling tired. No recent weight loss and no recent weight gain. Head: No headache and no sinus pain. Eyes: No vision problems. Cataracts. No Glasses/Contacts and no Glaucoma. Otolaryngeal: No hearing loss and no tinnitus. Cardiovascular: Chest pain or discomfort. No palpitations and no Hypertension. High Cholesterol. Pulmonary: Daytime asthma symptoms. No chronic cough. No wheezing. Gastrointestinal: No heartburn and no abdominal pain. Indigestion. No Peptic Ulcer, no GI Stomach Bleed, and no Ulcers. Acid Reflux. Endocrine: Hot flashes. No muscle weakness, no Diabetes, no Hypothyroid, and no Hyperthyroid. Hematologic: No easy bleeding. A tendency for easy bruising. No Anemia. Musculoskeletal: Arthritis. No lower back pain. Soft tissue swelling and pain localized to one or more joints. Neurological: No dizziness, no convulsions, and no numbness. Psychological: No anxiety. Emotional lability. No depression. Insomnia. Not crying for no reason. Skin: No dry skin. No Ulcers, no Scars, and no rash. Allergic and Immunologic: No complaint of seasonal allergic reaction. Mental Status Includes: Mental Status from this encounter Description No anxiety Depression Functional Status Includes: Functional Status from this encounter No Functional Status Recorded Physical Exam Includes: Physical Exam from this encounter Allergies Includes: Active Allergies No Known Allergies Encounters Encounter Provider Location Date Check-In Time Check-Out Time Diagnosis Follow Up Karlos Nunez PA-C [facility] 4 12:58PM 1:18PM Overweight Insurance Includes: Active Insurance Policies Plan Name Member ID Group # Subscriber Relationship Effect daksha Dates 1 - [employer] [id number] Mela Neves Self Clinical Notes Includes: Clinical Notes from this encounter * Progress note Date Encounter Last Documented by 03/06/2024 Follow Up Last documented on 03/06/2024; 4:06 PM, Karlos Mcneil; [facility], [facility] Active Problems & Conditions - Joint Pain in the Left Hip - Joint Pain in the Right Knee - Joint Pain Right Thumb - Lower Back Pain Chief Complaint The Chief Complaint is: Right thumb and hand pain. Referred Here Referred by Ignacio Hartman, PCP. History of Present Illness Mela Neves is a 58 year old female. - Symptoms GRINDING. - Allergy list reviewed - Problem list reviewed - Medication list reviewed - Previous history of new onset pain Injury is not work related or an automotive accident - Patient pain level from 1-10: 7 BETTER WITH REST WORSE WITH ACTIVITIES - No previous treatment. - - Review of medications documented Medications used for this condition: 58-year-old female here for follow-up of her right CMC arthrosis. The patient had an injection in the 1st CMC last visit. The patient states that she was having tolerable base of thumb pain. She states she was more good days than bad days. She wears a brace occasionally which does help. She was also developed some stiffness in the thumb and a little soreness at the thumb A1 skye. Denies any triggering or locking of the thumb. She denies any new injury or trauma to the hand. Current Medication - Albuterol Sulfate (2.5 MG/3ML) 0.083% Inhalation Nebulization solution 5 days, 0 refills - Amitriptyline HCl 10 MG Oral Tablet take as directed 30 days, 0 refills - Carvedilol 3.125 MG Oral Tablet 30 days, 0 refills - DULoxetine HCl 30 MG Oral Capsule Delayed Release Particles 30 days, 0 refills - Esomeprazole Magnesium 40 MG Oral Capsule Delayed Release as needed 0 days, 0 refills - Famotidine 20 MG Oral Tablet 30 days, 0 refills - Fluconazole 100 MG Oral Tablet 30 days, 0 refills - HYDROcodone-Acetaminophen 5-325 MG Oral Tablet 30 days, 0 refills - Naproxen 500 MG Oral Tablet 30 days, 0 refills - Nystatin [id number] UNIT/ML Mouth/Throat Suspension 14 days, 0 refills - Ondansetron 4 MG Oral Tablet Disintegrating 10 days, 0 refills - Pantoprazole Sodium 40 MG Oral Tablet Delayed Release 30 days, 0 refills - Prasugrel HCl 10 MG Oral Tablet 30 days, 0 refills - Pregabalin 50 MG Oral Capsule 30 days, 0 refills - Repatha SureClick 140 MG/ML Subcutaneous Solution Auto-injector 28 days, 0 refills - Rosuvastatin Calcium 10 MG Oral Tablet 90 days, 0 refills - Sertraline HCl 100 MG Oral Tablet 30 days, 0 refills - tiZANidine HCl 2 MG Oral Tablet as needed 0 days, 0 refills Past Medical/Surgical History Reported: Immunization History: No recent immunization for flu and not for pneumococcal pneumonia. Diagnoses: Heart disease. Heart disease. Asthma. Asthma History of Blood Clots. History of Blood Clots. Heartburn / Acid Reflux History of Heart Attack / Stroke. History of Heart Attack / Stroke. Osteoporosis. Osteoporosis. Arthritis. Arthritis. Depression. Depression Surgical: - Past Surgical History: - History of Gallbladder - History of Gallbladder - Shoulder arthroplasty - Shoulder arthroplasty - Total knee arthroplasty - Total knee arthroplasty Social History Yes, current smoker. Yes, current smoker. Current diet: No recent change in diet. No recent change in diet. Caffeine use: Caffeine use. Tobacco use: Tobacco non-user. Not a smoker. Non-smoker. Alcohol: Not using alcohol. Never drank alcohol. Drug Use: Not using drugs. Never used drugs. Habits: Exercising regularly. Allergies - No Known Allergies Family History Cancer Heart disease Diabetes mellitus Rheumatoid arthritis Maternal: Cancer Heart disease Paternal grandfather's: Heart disease Maternal grandfather's: Heart disease Maternal grandmother's: Heart disease Rheumatoid arthritis Review Of Systems Systemic: Feeling tired. No recent weight loss and no recent weight gain. Head: No headache and no sinus pain. Eyes: No vision problems. Cataracts. No Glasses/Contacts and no Glaucoma. Otolaryngeal: No hearing loss and no tinnitus. Cardiovascular: Chest pain or discomfort. No palpitations and no Hypertension. High Cholesterol. Pulmonary: Daytime asthma symptoms. No chronic cough. No wheezing. Gastrointestinal: No heartburn and no abdominal pain. Indigestion. No Peptic Ulcer, no GI Stomach Bleed, and no Ulcers. Acid Reflux. Endocrine: Hot flashes. No muscle weakness, no Diabetes, no Hypothyroid, and no Hyperthyroid. Hematologic: No easy bleeding. A tendency for easy bruising. No Anemia. Musculoskeletal: Arthritis. No lower back pain. Soft tissue swelling and pain localized to one or more joints. Neurological: No dizziness, no convulsions, and no numbness. Psychological: No anxiety. Emotional lability. No depression. Insomnia. Not crying for no reason. Skin: No dry skin. No Ulcers, no Scars, and no rash. Allergic and Immunologic: No complaint of seasonal allergic reaction. Physical Findings - Vitals taken 03/06/2024 01:06 pm KL Height 67 in Weight 257 lbs Body Mass Index 40.3 kg/m2 Body Surface Area 2.2 m2 Standard Measurements: - Patient was overweight. PHYSICAL EXAM: CONSTITUTIONAL: Well developed, well groomed, well nourished patient in no acute distress who appears stated age, height and weight. PSYCHIATRIC: The patient is alert and oriented to person, place, date and situation. Mood and affect are normal for current situation. NEUROLOGICAL: Sensation normal bilateral upper and lower extremities. LYMPHATIC: No pitting edema noted in the lower extremities. SKIN: No lesions noted on upper or lower extremities. Skin is dry, warm and with normal turgor. VASCULAR: No swelling in upper or lower extremities other than described below in extremity exam. Pulses normal in both upper (radial) extremities. GAIT AND STATION: Normal gait without assistive devices. Station normal. RIGHT WRIST/HAND: Able to make a full composite fist Able to fully flex and extend all fingers Hand is warm and well perfused Sensation intact to light touch distally in all nerve distributions Carpal compression test is negative Tinel of the median nerve at the wrist is negative There is no triggering of digits, however there is tenderness at the thumb A1 skye without a palpable nodule. CMC is mildly tender to palpation. CMC grind is positive for crepitus no pain There is no tenderness to palpation over the dorsal compartments. Finklesteins is negative Flexion: 90 degrees Extension: 70 degrees Pronation: 90 degrees Supination: 90 degrees Strength: 5/5 wrist flexion, 5/5 extension, 5/5 supination, 5/5 pronation. User Defined 5 . 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 The patient has been responding well to injections. She was having minimal discomfort at exam today. She may also be developing right pre trigger thumb, there is no triggering or locking on exam. Discussed with her that since her symptoms are not extremely symptomatic at this time, we will hold off on an injection until symptoms worsen. The patient understands in his happy with this plan. Tentatively have her follow up in 3 months. She understands with any worsening symptoms she can come in sooner. Assessment - Overweight Previous Tests Imaging: X-Ray: An X-ray was performed. Basic Management Procedures And Services: - Brace Therapy - Intervention and counseling on cessation of tobacco use. Counseling/Education - Tobacco non-user - Use of tobacco assessment performed - Lose weight Notes This dictation was done with voice recognition software and may contain errors and omissions. Practice Management Use of tobacco assessment performed Review of medications documented. Care Team - IGNACIO HARTMAN Health Reminders - Assess BMI satisfied 03/06/2024. - Assess Tobacco Use satisfied 03/06/2024. - Follow Up Plan BMI Management satisfied 03/06/2024. - Smoking & Tobacco Cessation Intervention and Counseling satisfied 03/06/2024.
--- OUTSIDE RECORDS SUMMARY | 2024-08-15 23:36 | XMS_ITS | Clinical Summary ---
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 Name Role Phone IGNACIO PEOPLES Unavailable [phone] Nikunj HA, Joey Vieira Unavailable [phone] Reason for Visit and Chief Complaint BRACE FITTING Problems Includes: Problems addressed during this encounter and other active Problems All Visits Onset Date Resolved Date Provider Condition S tatus Joint Pain Right Thumb 08/23/2023 Karlos de paz PA-C Active Last Documented On 4 10:36AM ; [facility], [facility] Lower Back Pain 01/17/2023 Richard Palomo PA-C A ctive Last Documented On 3 2:28PM ; [facility], [facility] Joint Pain in the Left Hip 06/14/2022 Richard alves PA-C Active Last Documented On 3 3:30PM ; [facility] Joint Pain in the Right Knee 03/25/2022 Janell Vila PA-C Active Last Documented On 2 12:58PM ; [facility], [facility] Plan of Treatment Future Appointments Date Time Location Provi talat Follow Up 09/04/2024 2:00PM [facility] Last Documented On 5 1:57PM ; [facility], [facility] Assessments Includes: Assessments from this encounter No Assessments Recorded Medical Equipment - Implanted Devices Includes: Current Devices No Medical Equipment Recorded Medications Includes: Medications discussed during this encounter and other current Medications Current Medications (continue as prescribed) Naproxen 500 MG Oral Tablet 06/24/2023 Provider: IGNACIO PEOPLES Diagnosis: Last Documented On 4 10:41AM By Geni Johns ; [facility], [facility] HYDROcodone-Acetaminophen 5-325 MG Oral Tablet 024 Provider: Diagnosis: Last Documented On 4 10:41AM By Geni oJhns ; [facility], [facility] Repatha SureClick 140 MG/ML Subcutaneous Solution Auto-injector 06/08/2023 Provider: Diagnosis: Last Documented On 4 10:41AM By Geni Johns ; [facility], [facility] Pantoprazole Sodium 40 MG Or al Tablet Delayed Release 06/06/2023 Provider: IGNACIO PEOPLES Diagnosis: Last Documented On 4 10:41AM By Geni Johns ; [facility], [facility] Sertraline HCl 100 MG Oral Tablet 06/06/2023 Provide r: IGNACIO PEOPLES Diagnosis: Last Documented On 4 10:41AM By Geni Johns ; [facility], [facility] Fluconazole 100 MG Oral Tablet 06/06/2023 Provider: IGNACIO PEOPLES Diagnosis: Last Documented On 4 10:41AM By Geni Johns ; [facility], [facility] Ondansetron 4 MG Oral Tablet Disintegrating 06/06/2023 Provider: IGNACIO PEOPLES Diagnosis: Last Documented On 4 10:41AM By Geni Johns ; [facility], [facility] Albuterol Sulfate (2.5 MG/3M L) 0.083% Inhalation Nebulization solution 05/15/2023 Provider: IGNACIO PEOPLES Diagnosis: Last Documented On 4 10:41AM By Geni Johns ; [facility], [facility] Famotidine 20 MG Oral Tablet 05/12/2023 Provider: IGNACIO PEOPLES Diagnosis: Last Documented On 4 10:41AM By Gein Johns ; [facility], [facility] Nystatin [id number] UNIT/ML Mouth/Throat Suspension 2023 Provider: IGNACIO PEOPLES Diagnosis: Last Documented On 4 10:41AM By Geni Johns ; [facility] Rosuvastatin Calcium 10 MG Oral Tablet 02/23/2023 Pr ovider: Diagnosis: Last Documented On 4 10:41AM By Geni Johns ; [facility] Pregabalin 50 MG Oral Capsule 02/13/2023 Provider: IGNACIO PEOPLES Diagnosis: Last Documented On 4 10:41AM By Geni Johns ; [facility] Amitriptyline HCl 10 MG Oral Tablet 01/10/2023 Provi talat: IGNACIO SHELTON Diagnosis: Last Documented On 3 11:02AM By Geni Johns ; [facility] Prasugrel HCl 10 MG Oral Tablet 01/03/2023 Provider: Diagnosis: Last Documented On 4 10:41AM By Geni Johns ; [facility], [facility] DULoxetine HCl 30 MG Oral Ca psule Delayed Release Particles 11/04/2022 Provider: IGNACIO PEOPLES Diagnosis: Last Documented On 4 10:41AM By Geni Johns ; [facility] Carvedilol 3.125 MG Oral Tablet 09/23/2022 Provider: Diagnosis: Last Documented On 4 10:41AM By Geni Johns ; [facility] Esomeprazole Magnesium 40 MG Oral Capsule Delayed Rele ase 06/24/2022 Provider: Diagnosis: Last Documented On 3 10:19AM By Selina Lucas ; [facility] tiZANidine HCl 2 MG Oral Tablet 06/24/2022 Provider: Diagnosis: Last Documented On 3 10:19AM By Selina Lucas ; [facility], [facility] Medications Administered Includes: Administered Medications from this encounter No Administered Medications Recorded Results Includes: Results discussed during this encounter No Results Recorded For Specified Dates History of Present Illness Includes: History of Present Illness from this encounter No History of Present Illness Recorded Social History No Social History Recorded - Smoking Status Unknown Procedures and Surgical History Includes: Procedures from this encounter Procedures Code Diagnosis Performing Provider Service Location Service Date COCK-UP WRIST SPLINT WITH OR W/O THUMB (RIGHT) [id number] Unil primary osteoarth of first carpometacarp joint, r hand Nikolai Fagan MD [facility] 06/05/2024 Last Documented On 12:33PM ; [facility], [facility] Medical History Includes: Medical History addressed during this encounter No Medical History Recorded Family History Includes: Family History addressed during this encounter No Family History Recorded Review of Systems Includes: Review of Systems from this encounter No Review of Systems Recorded Mental Status Includes: Mental Status from this encounter No Mental Status Recorded Functional Status Includes: Functional Status from this encounter No Functional Status Recorded Physical Exam Includes: Physical Exam from this encounter No Physical Exam Recorded Allergies Includes: Active Allergies No Known Allergies Encounters Encounter Provider Location Date Check-In Time Check-Out Time Diagnosis BRACE FITTING Karlos FERNANDEZ 06/05/2024 1:55PM 11:59PM Insurance Includes: Active Insurance Policies Plan Name Member ID Group # Subscriber Relationship Effect [id number] Dates 1 - [facility]/ [employer] [id number] Mela Neves Self Clinical Notes Includes: Clinical Notes from this encounter No Clinical Notes Recorded
--- OUTSIDE RECORDS SUMMARY | 2024-08-15 23:36 | XMS_ITS ---
Care Plan - [facility], [facility] Created on: August 15, 2024 Mela Neves : 1965 Sex: Female Author Organization [facility] , [facility] Address [address] [place] [address] Phone Care Team Providers Care Supply Chain Analyst Name Role Phone PEOPLESDILIP RUANOE Unavailable [phone] Nikunj HA, Joey Vieira Unavailable [phone]
--- OUTSIDE RECORDS SUMMARY | 2024-08-15 23:36 | XMS_ITS | Clinical Summary ---
Author Organization [facility] , [facility] Address [address] [place] [address] Phone Care Team Providers Care Dope House Operator Helper Name Role Phone IGNACIO PEOPLES Unavailable [phone] Nikunj HA, Joey Vieira Unavailable [phone] Reason for Visit and Chief Complaint BRACE FITTING Problems Includes: Problems addressed during this encounter and other active Problems All Visits Onset Date Resolved Date Provider Condition S tatus Joint Pain Right Thumb 08/23/2023 Karlos de paz PA-C Active Last Documented On 4 10:36AM ; [facility], [facility] Lower Back Pain 01/17/2023 Richard Palomo PA-C A ctive Last Documented On 3 2:28PM ; [facility], [facility] Joint Pain in the Left Hip 06/14/2022 Richard alves PA-C Active Last Documented On 3 3:30PM ; [facility] Joint Pain in the Right Knee 03/25/2022 Janell Vila PA-C Active Last Documented On 2 12:58PM ; [facility], [facility] Plan of Treatment Future Appointments Date Time Location Provi talat Follow Up 09/04/2024 2:00PM [facility] Last Documented On 5 1:57PM ; [facility], [facility] Assessments Includes: Assessments from this encounter No Assessments Recorded Medical Equipment - Implanted Devices Includes: Current Devices No Medical Equipment Recorded Medications Includes: Medications discussed during this encounter and other current Medications Current Medications (continue as prescribed) Naproxen 500 MG Oral Tablet 06/24/2023 Provider: IGNACIO PEOPLES Diagnosis: Last Documented On 4 10:41AM By Geni Johns ; [facility], [facility] HYDROcodone-Acetaminophen 5-325 MG Oral Tablet 024 Provider: Diagnosis: Last Documented On 4 10:41AM By Geni Johns ; [facility], [facility] Repatha SureClick 140 MG/ML Subcutaneous Solution Auto-injector 06/08/2023 Provider: Diagnosis: Last Documented On 4 10:41AM By Geni Johns ; [facility], [facility] Pantoprazole Sodium 40 MG Or al Tablet Delayed Release 06/06/2023 Provider: IGNACIO PEOPLES Diagnosis: Last Documented On 4 10:41AM By Geni Johns ; [facility], [facility] Sertraline HCl 100 MG Oral Tablet 06/06/2023 Provide r: IGNACIO PEOPLES Diagnosis: Last Documented On 4 10:41AM By Geni Johns ; [facility], [facility] Fluconazole 100 MG Oral Tablet 06/06/2023 Provider: IGNACIO PEOPLES Diagnosis: Last Documented On 4 10:41AM By Geni Johns ; [facility], [facility] Ondansetron 4 MG Oral Tablet Disintegrating 06/06/2023 Provider: IGNACIO PEOPLES Diagnosis: Last Documented On 4 10:41AM By Geni Johns ; [facility], [facility] Albuterol Sulfate (2.5 MG/3M L) 0.083% Inhalation Nebulization solution 05/15/2023 Provider: IGNACIO PEOPLES Diagnosis: Last Documented On 4 10:41AM By Geni Johns ; [facility], [facility] Famotidine 20 MG Oral Tablet 05/12/2023 Provider: IGNACIO PEOPLES Diagnosis: Last Documented On 4 10:41AM By Geni Johns ; [facility], [facility] Nystatin [id number] UNIT/ML Mouth/Throat Suspension 2023 Provider: IGNACIO PEOPLES Diagnosis: Last Documented On 4 10:41AM By Geni Johns ; [facility] Rosuvastatin Calcium 10 MG Oral Tablet 02/23/2023 Pr ovider: Diagnosis: Last Documented On 4 10:41AM By Geni Johns ; [facility] Pregabalin 50 MG Oral Capsule 02/13/2023 Provider: IGNACIO PEOPLES Diagnosis: Last Documented On 4 10:41AM By Geni Johns ; [facility] Amitriptyline HCl 10 MG Oral Tablet 01/10/2023 Provi talat: IGNACIO SHELTON Diagnosis: Last Documented On 3 11:02AM By Geni Johns ; [facility] Prasugrel HCl 10 MG Oral Tablet 01/03/2023 Provider: Diagnosis: Last Documented On 4 10:41AM By Geni Johns ; [facility], [facility] DULoxetine HCl 30 MG Oral Ca psule Delayed Release Particles 11/04/2022 Provider: IGNACIO PEOPLES Diagnosis: Last Documented On 4 10:41AM By Geni Johns ; [facility] Carvedilol 3.125 MG Oral Tablet 09/23/2022 Provider: Diagnosis: Last Documented On 4 10:41AM By Geni Johns ; [facility] Esomeprazole Magnesium 40 MG Oral Capsule Delayed Rele ase 06/24/2022 Provider: Diagnosis: Last Documented On 3 10:19AM By Selina Lucas ; [facility] tiZANidine HCl 2 MG Oral Tablet 06/24/2022 Provider: Diagnosis: Last Documented On 3 10:19AM By Selina Lucas ; [facility], [facility] Medications Administered Includes: Administered Medications from this [...] Diagnosis Performing Provider Service Location Service Date [facility] [id number] Unil primary osteoarth of first carpometacarp joint, r hand Karlos Mayra PA-C [facility] 08/23/2023 Last Documented On 4 3:47PM ; [facility], [facility] Medical History Includes: Medical History addressed during [...] Time Check-Out Time Diagnosis BRACE FITTING Karlos Nunez PA-C [facility] 08/23/2023 11:24AM 11:59PM Insurance Includes: Active Insurance Policies Plan Name Member ID Group # Subscriber Relationship Effect daksha Dates 1 - [facility]/ [employer] [id number] Mela Neves Self Clinical Notes Includes: Clinical Notes from this encounter No Clinical Notes Recorded
--- OUTSIDE RECORDS SUMMARY | 2024-08-15 23:37 | XMS_ITS | Clinical Summary ---
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 Role Phone IGNACIO HARTMAN Unavailable [phone] Nikunj HA, Joey Vieira Unavailable [phone] Reason for Visit and Chief Complaint The Chief Complaint is: Right thumb and hand pain Problems Includes: Problems addressed during this encounter and other active Problems Current Visit Onset Date Resolved Date Provider Conditio n Status Lower Back Pain 01/17/2023 Richard Palomo PA-C A ctive Last Documented On 3 2:28PM ; [facility], [facility] Lower Back Pain 10/23/2020 11/15/2021 Janell Vila PA-C Resolved Last Documented On 2 9:13AM ; [facility], [facility] Past Visits Onset Date Resolved Date Provider Condition Status Joint Pain Right Thumb 08/23/2023 Karlos de paz PA-C Active Last Documented On 4 10:36AM ; [facility], [facility] Joint Pain in the Left Hip 06/14/2022 Richard alves PA-C Active Last Documented On 3 3:30PM ; [facility], [facility] Joint Pain in the Right Knee 03/25/2022 Janell Vila PA-C Active Last Documented On 2 12:58PM ; [facility], [facility] Plan of Treatment Future Appointments Date Time Location Provi talat Follow Up 09/04/2024 2:00PM [facility] Last Documented On 5 1:57PM ; [facility], [facility] Instructions to patient Intervention and counseling on cessation of tobacco use Last Documented On 4 1:08PM ; [facility], [facility] Lose weight Last Documented On 4 1:08PM ; [facility], [facility] Assessments Includes: Assessments from this encounter Findings - Overweight - Last Documented On 11/29/2023 1:34PM ; [facility], [facility] Instructions Includes: Instructions from this encounter Instructions to patient Intervention and counseling on cessation of tobacco use Last Documented On 4 1:08PM ; [facility] Lose weight Last Documented On 4 1:08PM ; [facility], [facility] Medical Equipment - Implanted Devices Includes: Current Devices No Medical Equipment Recorded Medications Includes: Medications discussed during this encounter and other current Medications Current Medications (continue as prescribed) Naproxen 500 MG Oral Tablet 06/24/2023 Provider: IGNACIO HARTMAN Diagnosis: Last Documented On 4 10:41AM By Geni Johns ; [facility], [facility] HYDROcodone-Acetaminophen 5-325 MG Oral Tablet 024 Provider: Diagnosis: Last Documented On 4 10:41AM By Geni Johns ; [facility], [facility] Repatha SureClick 140 MG/ML Subcutaneous Solution Auto-injector 06/08/2023 Provider: Diagnosis: Last Documented On 4 10:41AM By Geni Johns ; [facility], [facility] Pantoprazole Sodium 40 MG Or al Tablet Delayed Release 06/06/2023 Provider: IGNACIO HARTMAN Diagnosis: Last Documented On 4 10:41AM By Geni Johns ; [facility], [facility] Sertraline HCl 100 MG Oral Tablet 06/06/2023 Provide r: IGNACIO HARTMAN Diagnosis: Last Documented On 4 10:41AM By Geni Johns ; [facility], [facility] Fluconazole 100 MG Oral Tablet 06/06/2023 Provider: IGNACIO HARTMAN Diagnosis: Last Documented On 4 10:41AM By Geni Johns ; [facility] Ondansetron 4 MG Oral Tablet Disintegrating 06/06/2023 Provider: IGNACIO HARTMAN Diagnosis: Last Documented On 4 10:41AM By Geni Johns ; [facility] Albuterol Sulfate (2.5 MG/3M L) 0.083% Inhalation Nebulization solution 05/15/2023 Provider: IGNACIO HARTMAN Diagnosis: Last Documented On 4 10:41AM By Geni Johns ; [facility] Famotidine 20 MG Oral Tablet 05/12/2023 Provider: IGNACIO HARTMAN Diagnosis: Last Documented On 4 10:41AM By Geni Johns ; [facility] Nystatin 489169 UNIT/ML Mouth/Throat Suspension 2023 Provider: IGNACIO HARTMAN Diagnosis: Last Documented On 4 10:41AM By Geni Johns ; [facility], [facility] Rosuvastatin Calcium 10 MG Oral Tablet 02/23/2023 Pr ovider: Diagnosis: Last Documented On 4 10:41AM By Geni Johns ; [facility], [facility] Pregabalin 50 MG Oral Capsule 02/13/2023 Provider: IGNACIO HARTMAN Diagnosis: Last Documented On 4 10:41AM By Geni Johns ; [facility], [facility] Amitriptyline HCl 10 MG Oral Tablet 01/10/2023 Provi talat: IGNACIO HARTMAN Diagnosis: Last Documented On 3 11:02AM By Geni Johns ; [facility], [facility] Prasugrel HCl 10 MG Oral Tablet 01/03/2023 Provider: Diagnosis: Last Documented On 4 10:41AM By Geni Johns ; [facility] DULoxetine HCl 30 MG Oral Ca psule Delayed Release Particles 11/04/2022 Provider: IGNACIO HARTMAN Diagnosis: Last Documented On 4 10:41AM By Geni Johns ; [facility] Carvedilol 3.125 MG Oral Tablet 09/23/2022 Provider: Diagnosis: Last Documented On 4 10:41AM By Geni Johns ; [facility], [facility] Esomeprazole Magnesium 40 MG Oral Capsule Delayed Rele ase 06/24/2022 Provider: Diagnosis: Last Documented On 3 10:19AM By Selina Lucas ; [facility], [facility] tiZANidine HCl 2 MG Oral Tablet 06/24/2022 Provider: Diagnosis: Last Documented On 3 10:19AM By Selina Lucas ; [facility], [facility] Past Medications on file Meloxicam 15 MG Oral Tablet 06/30/2023 - 07/30/2023 Pr ovider: Richard Palomo PA-C Diagnosis: Take t tablet by mouth once a day Last Documented On 4 11:20AM By Geni Johns ; [facility], [facility] Medications Administered Includes: Administered Medications from [...] for follow-up of her right CMC arthrosis. She had an injection 3 months ago. This provided some modest relief but she did not have a robust response like she did to the injection prior. Describes pain in the base of the thumb. No numbness tingling in the hand. Social History Description Last Updated Tobacco use 06/24/2022 Last Documented On 4 1:08PM ; [facility], [facility] Tobacco non-user 03/25/2022 Last Documented On 4 1:08PM ; [facility], [facility] Exercising regularly 03/25/2022 Last Documented On 4 1:08PM ; [facility], [facility] No recent change in diet 03/25/2022 Last Documented On 4 1:08PM ; [facility] Not a smoker 03/25/2022 Last Documented On 4 1:08PM ; [facility] Not using alcohol 03/25/2022 Last Documented On 4 1:08PM ; [facility] Not using drugs 03/25/2022 Last Documented On 4 1:08PM ; [facility] Non-smoker 12/08/2021 Last Documented On 4 1:08PM ; [facility] Caffeine use 11/15/2021 Last Documented On 4 1:08PM ; [facility] Yes, current smoker. 11/15/2021 Last Documented On 4 1:08PM ; [facility] Never drank alcohol 11/15/2021 Last Documented On 4 1:08PM ; [facility] Never used drugs 11/15/2021 Last Documented On 4 1:08PM ; [facility], [facility] No recent change in diet 12/08/2020 Last Documented On 4 1:08PM ; [facility] Yes, current smoker. 12/08/2020 Last Documented On 4 1:08PM ; [facility] Smoking Status Unknown Procedures and Surgical History Includes: Procedures from this encounter Procedures Code Diagnosis Performing Provider Service Location Service Date DRAIN/INJECT, JOINT/BURSA (RIGHT) Unil primary osteoarth of first carpometacarp joint, r hand Karlso Nunez PA-C [facility] 11/29/2023 Last Documented On 4 7:29AM ; [facility], [facility] Injection, betamethasone acetate 6mg per cc and betamethason J0702 Unil primary osteoarth of first carpometacarp joint, r hand Karlos Nunez PA-C [facility] 11/29/2023 Last Documented On 4 7:29AM ; [facility], [facility] 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 4000F Last Documented On 4 1:08PM ; [facility], [facility] use of tobacco assessment performed 1000F Last Documented On 4 1:08PM ; [facility], [facility] review of medications documented 1160F Last Documented On 4 1:08PM ; [facility], [facility] an X-ray was performed 39792 Last Documented On 4 1:08PM ; [facility], [facility] brace Last Documented On 4 1:08PM ; [facility], [facility] Surgical History Last Updated History of History of Gallbladder 2021 Last Documented On 4 1:08PM ; [facility], [facility] History of shoulder arthroplasty 022 Last Documented On 4 1:08PM ; [facility], [facility] History of total knee arthroplasty 11/15 Last Documented On 4 1:08PM ; [facility], [facility] History of Past Surgical History: 2021 Last Documented On 4 1:08PM ; [facility], [facility] Medical History Includes: Medical History addressed during this encounter Description Last Updated No recent immunization for flu 2 Last Documented On 4 1:08PM ; [facility], [facility] No recent immunization for pneumococcal pneumonia 03/25/2022 Last Documented On 4 1:08PM ; [facility], [facility] History of arthritis 11/15/2021 Last Documented On 4 1:08PM ; [facility], [facility] History of asthma 11/15/2021 Last Documented On 4 1:08PM ; [facility], [facility] History of depression 11/15/2021 Last Documented On 4 1:08PM ; [facility], [facility] History of heart disease 11/15/2021 Last Documented On 4 1:08PM ; [facility], [facility] History of History of Blood Clots 2021 Last Documented On 4 1:08PM ; [facility], [facility] History of History of Heart Attack / Str giselle 11/15/2021 Last Documented On 4 1:08PM ; [facility], [facility] History of osteoporosis 11/15/2021 Last Documented On 4 1:08PM ; [facility] Arthritis 11/15/2021 Last Documented On 4 1:08PM ; [facility] Asthma 11/15/2021 Last Documented On 4 1:08PM ; [facility] Depression 11/15/2021 Last Documented On 4 1:08PM ; [facility] Heart disease 11/15/2021 Last Documented On 4 1:08PM ; [facility] Heartburn / Acid Reflux 11/15/2021 Last Documented On 4 1:08PM ; [facility] History of Blood Clots 11/15/2021 Last Documented On 4 1:08PM ; [facility] History of Gallbladder 11/15/2021 Last Documented On 4 1:08PM ; [facility] History of Heart Attack / Stroke 022 Last Documented On 4 1:08PM ; [facility] Osteoporosis 11/15/2021 Last Documented On 4 1:08PM ; [facility] Shoulder arthroplasty 11/15/2021 Last Documented On 4 1:08PM ; [facility] Total knee arthroplasty 11/15/2021 Last Documented On 4 1:08PM ; [facility] Family History Includes: Family History addressed during this encounter Description Last Updated Family history of cancer 11/15/2021 Last Documented On 4 1:08PM ; [facility] Family history of heart disease 11/16/19 22 Last Documented On 4 1:08PM ; [facility] Family history of rheumatoid arthritis 0 11/15/2021 Last Documented On 4 1:08PM ; [facility] Maternal grandfather's history of family history of heart disease 11/15/2021 Last Documented On 4 1:08PM ; [facility] Maternal grandmother's history of family history of heart disease 11/15/2021 Last Documented On 4 1:08PM ; [facility] Maternal grandmother's history of rheuma toid arthritis 11/15/2021 Last Documented On 4 1:08PM ; [facility] Maternal history of family history of ca ncer 11/15/2021 Last Documented On 4 1:08PM ; [facility] Maternal history of family history of he art disease 11/15/2021 Last Documented On 4 1:08PM ; [facility] Paternal grandfather's history of family history of heart disease 11/15/2021 Last Documented On 4 1:08PM ; [facility] Diabetes mellitus 12/08/2020 Last Documented On 4 1:08PM ; [facility] Review of Systems Includes: Review of [...] Time Diagnosis Follow Up [facility] 1:44PM Overweight Insurance Includes: Active Insurance Policies Plan Name Member ID Group # Subscriber Relationship Effect daksha Dates 1 [facility] JENNIFER [id number] Mela Neves Self Clinical Notes Includes: Clinical Notes from this encounter * Progress note Date Encounter Last Documented by 11/29/2023 Follow Up Last documented on 11/29/2023; 1:34 PM, Karlos Mcneil; [facility] Active Problems & Conditions - Joint Pain in the Left Hip - Joint Pain in the Right Knee - Joint Pain Right Thumb - Lower Back Pain Chief Complaint The Chief Complaint is: Right thumb and hand pain. Referred Here Referred by Ignacio Hartman, PAYAM. History of Present Illness Mela Neves is [...] for follow-up of her right CMC arthrosis. She had an injection 3 months ago. This provided some modest relief but she did not have a robust response like she did to the injection prior. Describes pain in the base of the thumb. No numbness tingling in the hand. Current Medication - Albuterol Sulfate [...] Tablet 30 days, 0 refills - Nystatin 444214 UNIT/ML Mouth/Throat Suspension 14 days, 0 refills [...] complaint of seasonal allergic reaction. Physical Findings Standard Measurements: - Patient was overweight. PHYSICAL [...] is negative There is no triggering of digits CMC is tender to palpation. CMC grind is positive for pain and crepitus There is no tenderness to palpation over the dorsal compartments. Finklesteins is negative Flexion: 90 degrees Extension: 70 degrees Pronation: 90 degrees Supination: 90 degrees Strength: 5/5 wrist flexion, 5/5 extension, 5/5 supination, 5/5 pronation. 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 Long conversation with the patient about her problem. We discussed repeat injections versus CMC arthroplasty. She elects to move forward than an injection today. She will follow up in 3 months. The risks and benefits of a right CMC injection were discussed. I answered all of the patient's questions and they verbally consented to the procedure. The skin over the CMC joint was prepped with isopropyl alcohol and allowed to dry. Utilizing a sterile needle, I injected 1/2 cc of betamethasone and 1/2 cc of 1% lidocaine into the joint. The needle was withdrawn and the injection site was dressed with a sterile Band- Aid. The patient tolerated the procedure well without any apparent complication. Post-injection instructions were discussed. Assessment - Overweight Previous Tests Imaging: X-Ray: [...] - IGNACIO HARTMAN Health Reminders - Assess Tobacco Use satisfied 06/24/2022. - Smoking & Tobacco Cessation Intervention and Counseling satisfied 11/29/2023.
--- OUTSIDE RECORDS SUMMARY | 2024-08-15 23:37 | XMS_ITS | Clinical Summary ---
Author Organization [facility] , [facility] Address [address] [place] [address] Phone Care Team Providers Care Beam Builder Name Role Phone IGNACIO HARTMAN Unavailable [phone], Joey Vieira Unavailable [phone] Reason for Visit and Chief Complaint The Chief Complaint is: lt elbow pain Problems Includes: Problems addressed during this encounter and other active Problems Current Visit Onset Date Resolved Date Provider Conditio n Status Lower Back Pain 01/17/2023 Richard Palomo PA-C A ctive Last Documented On 3 2:28PM ; [facility], [facility] Lower Back Pain 10/23/2020 11/15/2021 Janell Vila PA-C Resolved Last Documented On 2 9:13AM ; [facility], [facility] Past Visits Onset Date Resolved Date Provider Condition Status Joint Pain Right Thumb 08/23/2023 Karlos de paz PA-C Active Last Documented On 4 10:36AM ; [facility] Joint Pain in the Left Hip 06/14/2022 Richard alves PA-C Active Last Documented On 3 3:30PM ; [facility] Joint Pain in the Right Knee 03/25/2022 Janell Vila PA-C Active Last Documented On 2 12:58PM ; [facility], [facility] Plan of Treatment Pending Tests Order Diagnosis Results Due Ordering P rovider Therapy - Occupational Therapy Elbow Overweight 06/05 Karlos Nunez PA-C Last Documented On 5 3:40PM ; [facility], [facility] Future Appointments Date Time Location Provi talat Follow Up 09/04/2024 2:00PM [facility] YAMILE Nunez PA-C Last Documented On 5 1:57PM ; [facility], [facility] Instructions to patient Lose weight Last Documented On 5 1:01PM ; [facility], [facility] Assessments Includes: Assessments from this encounter Findings - Overweight - Last Documented On 06/05/2024 3:40PM ; [facility], [facility] Instructions Includes: Instructions from this encounter Instructions to patient Lose weight Last Documented On 5 1:01PM ; [facility], [facility] Medical Equipment - Implanted Devices Includes: Current Devices No Medical Equipment Recorded Medications Includes: Medications discussed during this encounter and other current Medications Current Medications (continue as prescribed) Naproxen 500 MG Oral Tablet 06/24/2023 Provider: IGNACIO HARTMAN Diagnosis: Last Documented On 4 10:41AM By Geni Johns ; [facility], [facility] HYDROcodone-Acetaminophen 5-325 MG Oral Tablet 024 Provider: Diagnosis: Last Documented On 4 10:41AM By Geni oJhns ; [facility], [facility] Repatha SureClick 140 MG/ML Subcutaneous Solution Auto-injector 06/08/2023 Provider: Diagnosis: Last Documented On 4 10:41AM By Geni Johns ; [facility], [facility] Pantoprazole Sodium 40 MG Or al Tablet Delayed Release 06/06/2023 Provider: IGNACIO HARTMAN Diagnosis: Last Documented On 4 10:41AM By Geni Johns ; [facility], [facility] Sertraline HCl 100 MG Oral Tablet 06/06/2023 Provide r: IGNACIO HARTMAN Diagnosis: Last Documented On 4 10:41AM By Geni Johns ; [facility], [facility] Fluconazole 100 MG Oral Tablet 06/06/2023 Provider: IGNACIO HARTMAN Diagnosis: Last Documented On 4 10:41AM By Geni Johns ; [facility], [facility] Ondansetron 4 MG Oral Tablet Disintegrating 06/06/2023 Provider: IGNACIO HARTMAN Diagnosis: Last Documented On 4 10:41AM By Geni Johns ; [facility], [facility] Albuterol Sulfate (2.5 MG/3M L) 0.083% Inhalation Nebulization solution 05/15/2023 Provider: IGNACIO HARTMAN Diagnosis: Last Documented On 4 10:41AM By Geni Johns ; [facility] Famotidine 20 MG Oral Tablet 05/12/2023 Provider: IGNACIO HARTMAN Diagnosis: Last Documented On 4 10:41AM By Geni Johns ; [facility] Nystatin 215718 UNIT/ML Mouth/Throat Suspension 2023 Provider: IGNACIO HARTMAN Diagnosis: Last Documented On 4 10:41AM By Geni Johns ; [facility], [facility] Rosuvastatin Calcium 10 MG Oral Tablet 02/23/2023 Pr ovider: Diagnosis: Last Documented On 4 10:41AM By Geni Johns ; [facility] Pregabalin 50 MG Oral Capsule 02/13/2023 Provider: IGNACIO HARTMAN Diagnosis: Last Documented On 4 10:41AM By Geni Johns ; [facility], [facility] Amitriptyline HCl 10 MG Oral Tablet 01/10/2023 Provi talat: IGNACIO HARTMAN Diagnosis: Last Documented On 3 11:02AM By Geni Johns ; [facility] Prasugrel HCl 10 MG Oral Tablet 01/03/2023 Provider: Diagnosis: Last Documented On 4 10:41AM By Geni Johns ; [facility] DULoxetine HCl 30 MG Oral Ca psule Delayed Release Particles 11/04/2022 Provider: IGNACIO HARTMAN Diagnosis: Last Documented On 4 10:41AM By Geni Johns ; [facility] Carvedilol 3.125 MG Oral Tablet 09/23/2022 Provider: Diagnosis: Last Documented On 4 10:41AM By Geni Johns ; [facility] Esomeprazole Magnesium 40 MG Oral Capsule Delayed Rele ase 06/24/2022 Provider: Diagnosis: Last Documented On 3 10:19AM By Selina Lucas ; [facility] tiZANidine HCl 2 MG Oral Tablet 06/24/2022 Provider: Diagnosis: Last Documented On 3 10:19AM By Selina Lucas ; [facility], [facility] Past Medications on file Meloxicam 15 MG Oral Tablet 06/30/2023 - 07/30/2023 Pr ovider: Richard Palomo PA-C Diagnosis: Take t tablet by mouth once a day Last Documented On 4 11:20AM By Geni Johns ; [facility], [facility] Medications Administered Includes: Administered Medications from this encounter No Administered Medications Recorded Vital Signs Includes: Vital Signs from this encounter Vital Name 06/05/2024 01:02P Height (in) 67 Weight (lb) 257 Body Mass Index 40.3 Body Surface Area 2.2 Note: mg Last Documented: On 06/05/2024 1:02PM ; [facility], [facility] Results Includes: Results discussed during this encounter No Results Recorded For Specified Dates History of Present Illness Includes: History of Present Illness from this encounter HPI Mela Neves is a 58 year old female. - Allergy list reviewed - Problem list reviewed - Medication list reviewed 58-year-old female here for evaluation of her left medial elbow pain. Symptoms started about a month ago without trauma mechanism. She does have to use her extremities a lot when transferring out of the chair due to knee pain. Localizes the pain in the medial elbow. No numbness and tingling in the hand. He was occasionally radiates down the forearm. Worse with gripping activities and when she fully flexes her extends the elbow. 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 She feels that the benefit from the last injection has worn off in his requesting another steroid injection today. Social History Description Last Updated Tobacco use 06/24/2022 Last Documented On 5 1:01PM ; [facility], [facility] Tobacco non-user 03/25/2022 Last Documented On 5 1:01PM ; [facility], [facility] Exercising regularly 03/25/2022 Last Documented On 5 1:01PM ; [facility] No recent change in diet 03/25/2022 Last Documented On 5 1:01PM ; [facility] Not a smoker 03/25/2022 Last Documented On 5 1:01PM ; [facility] Not using alcohol 03/25/2022 Last Documented On 5 1:01PM ; [facility] Not using drugs 03/25/2022 Last Documented On 5 1:01PM ; [facility] Non-smoker 12/08/2021 Last Documented On 5 1:01PM ; [facility] Caffeine use 11/15/2021 Last Documented On 5 1:01PM ; [facility] Yes, current smoker. 11/15/2021 Last Documented On 5 1:01PM ; [facility] Never drank alcohol 11/15/2021 Last Documented On 5 1:01PM ; [facility] Never used drugs 11/15/2021 Last Documented On 5 1:01PM ; [facility] No recent change in diet 12/08/2020 Last Documented On 5 1:01PM ; [facility] Yes, current smoker. 12/08/2020 Last Documented On 5 1:01PM ; [facility] Smoking Status Unknown Procedures and Surgical History Includes: Procedures from this encounter Procedures Code Diagnosis Performing Provider Service Location Service Date DRAIN/INJECT, JOINT/BURSA (RIGHT) Unil primary osteoarth of first carpometacarp joint, r hand Nikolai aFgan MD [facility] 06/05/2024 Last Documented On 5 12:32PM ; [facility], [facility] Injection, betamethasone acetate 6mg per cc and betamethason [id number] Unil primary osteoarth of first carpometacarp joint, r charmaine Fagan MD [facility] 06/05/2024 Last Documented On 5 12:32PM ; [facility] use of tobacco assessment performed 1000F Last Documented On 5 1:01PM ; [facility], [facility] review of medications documented 1160F Last Documented On 5 1:01PM ; [facility] an X-ray was performed 16751 Last Documented On 5 1:01PM ; [facility], [facility] brace Last Documented On 5 1:01PM ; [facility], [facility] Surgical History Last Updated History of History of Gallbladder 2021 Last Documented On 5 1:01PM ; [facility] History of shoulder arthroplasty 022 Last Documented On 5 1:01PM ; [facility] History of total knee arthroplasty 11/15 Last Documented On 5 1:01PM ; [facility], [facility] History of Past Surgical History: 2021 Last Documented On 5 1:01PM ; [facility], [facility] Medical History Includes: Medical History addressed during this encounter Description Last Updated No recent immunization for flu Last Documented On 5 1:01PM ; [facility], [facility] No recent immunization for pneumococcal pneumonia 03/25/2022 Last Documented On 5 1:01PM ; [facility] History of arthritis 11/15/2021 Last Documented On 5 1:01PM ; [facility] History of asthma 11/15/2021 Last Documented On 5 1:01PM ; [facility] History of depression 11/15/2021 Last Documented On 5 1:01PM ; [facility], [facility] History of heart disease 11/15/2021 Last Documented On 5 1:01PM ; [facility] History of History of Blood Clots 2021 Last Documented On 5 1:01PM ; [facility], [facility] History of History of Heart Attack / Str giselle 11/15/2021 Last Documented On 5 1:01PM ; [facility], [facility] History of osteoporosis 11/15/2021 Last Documented On 5 1:01PM ; [facility] Arthritis 11/15/2021 Last Documented On 5 1:01PM ; [facility] Asthma 11/15/2021 Last Documented On 5 1:01PM ; [facility] Depression 11/15/2021 Last Documented On 5 1:01PM ; [facility] Heart disease 11/15/2021 Last Documented On 5 1:01PM ; [facility] Heartburn / Acid Reflux 11/15/2021 Last Documented On 5 1:01PM ; [facility] History of Blood Clots 11/15/2021 Last Documented On 5 1:01PM ; [facility] History of Gallbladder 11/15/2021 Last Documented On 5 1:01PM ; [facility], [facility] History of Heart Attack / Stroke 022 Last Documented On 5 1:01PM ; [facility] Osteoporosis 11/15/2021 Last Documented On 5 1:01PM ; [facility], [facility] Shoulder arthroplasty 11/15/2021 Last Documented On 5 1:01PM ; [facility], [facility] Total knee arthroplasty 11/15/2021 Last Documented On 5 1:01PM ; [facility], [facility] Family History Includes: Family History addressed during this encounter Description Last Updated Family history of cancer 11/15/2021 Last Documented On 5 1:01PM ; [facility], [facility] Family history of heart disease 11/16/19 22 Last Documented On 5 1:01PM ; [facility], [facility] Family history of rheumatoid arthritis 0 11/15/2021 Last Documented On 5 1:01PM ; [facility], [facility] Maternal grandfather's history of family history of heart disease 11/15/2021 Last Documented On 5 1:01PM ; [facility], [facility] Maternal grandmother's history of family history of heart disease 11/15/2021 Last Documented On 5 1:01PM ; [facility], [facility] Maternal grandmother's history of rheuma toid arthritis 11/15/2021 Last Documented On 5 1:01PM ; [facility], [facility] Maternal history of family history of ca ncer 11/15/2021 Last Documented On 5 1:01PM ; [facility], [facility] Maternal history of family history of he art disease 11/15/2021 Last Documented On 5 1:01PM ; [facility], [facility] Paternal grandfather's history of family history of heart disease 11/15/2021 Last Documented On 5 1:01PM ; [facility] Diabetes mellitus 12/08/2020 Last Documented On 5 1:01PM ; [facility] Review of Systems Includes: Review of Systems [...] Location Date Check-In Time Check-Out Time Diagnosis NEW PROBLEM/EST PT Karlos Nunez PA-C [facility] 06/05/19 1:00PM 1:44PM Overweight Insurance Includes: Active Insurance Policies Plan Name Member ID Group # Subscriber Relationship Effect [id number] Dates 1 - [facility], [facility]/[employer] [id number] Mela Neves Self Clinical Notes Includes: Clinical Notes from this encounter * Progress note Date Encounter Last Documented by 06/05/2024 NEW PROBLEM/EST PT Last document ed on 06/05/2024; 3:40 PM, Karlos Nunez PA-C; [facility], [facility] Active Problems & Conditions - Joint Pain in the Left Hip - Joint Pain in the Right Knee - Joint Pain Right Thumb - Lower Back Pain Chief Complaint The Chief Complaint is: Lt elbow pain. Referred Here Referred by Ignacio Hartman, PCP. History of Present Illness Mela Neves is a 58 year old female. - Allergy list reviewed - Problem list reviewed - Medication list reviewed 58-year-old female here for evaluation of her left medial elbow pain. Symptoms started about a month ago without trauma mechanism. She does have to use her extremities a lot when transferring out of the chair due to knee pain. Localizes the pain in the medial elbow. No numbness and tingling in the hand. He was occasionally radiates down the forearm. Worse with gripping activities and when she fully flexes her extends the elbow. 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 She feels that the benefit from the last injection has worn off in his requesting another steroid injection today. Current Medication - Albuterol Sulfate (2.5 MG/3ML) [...] Tablet 30 days, 0 refills - Nystatin [id number] UNIT/ML Mouth/Throat Suspension 14 days, 0 refills [...] allergic reaction. Physical Findings - Vitals taken 06/05/2024 01:02 pm mg Height 67 in Weight 257 lbs Body Mass Index 40.3 kg/m2 Body Surface Area 2.2 m2 PHYSICAL EXAM: CONSTITUTIONAL: Well developed, well groomed, [...] other than described below in extremity exam. Radial Pulses normal in both upper extremities. GAIT AND STATION: Normal gait without assistive devices. Station normal. LEFT ELBOW: No deformity. No atrophy. . No crepitation. Active Range of Motion: Flexion 160 degrees Extension 0 degrees Pronation 90 degrees Supination 90 degrees. Strength: 4+/5 flexion 5/5 extension 5/5 supination 5/5 pronation. Tinel of ulnar nerve at elbow is negative. Elbow hyperflexion does not cause ulnar nerve symptoms distally. Patient is tender at the medial epicondyle. Patient is not tender at the lateral epicondyle. Tennis elbow wrist extension test is negative. There is not pain and weakness with resisted wrist extension. Tennis elbow middle finger extension test is negative Golfers elbow test is positive Valgus stress test is negative. Varus stress test is negative User Defined 5 58-year-old female with left medial epicondylitis and right 1st CMC arthritis. Recommend a left wrist cock-up brace and referral to therapy and avoid it is a painful activity for the left elbow. For the right base of thumb pain recommend a repeat 1st CMC injection she was responded well to these in the past. She agrees with the plan. I will have her follow-up in 6 weeks for clinical recheck of the left elbow The risks and benefits of a right [...] Assessment - Overweight Previous Tests Imaging: X-Ray: X-ray. Basic Management Procedures And Services: - Brace Counseling/Education - Tobacco non-user - Use of tobacco assessment performed - Lose weight Plan StartCited - Overweight Therapy/Occupational Therapy: Elbow Instructions: See PT order attached EndCited Notes This dictation was done with voice recognition software and may contain errors and omissions. Practice Management Use of tobacco assessment performed Review of medications documented. Care Team - IGNACIO HARTMAN Health Reminders - Assess BMI satisfied 06/05/2024. - Assess Tobacco Use satisfied 06/05/2024. - Follow Up Plan BMI Management satisfied 06/05/2024.
== END 2024-08-15 23:59 | disposition home or self-care (01) ==
LOC: RAD 14:37
PROVIDERS: PCP Nurse Practitioner Family; Visit Provider Nurse Practitioner Family
DX: Z12.31 Encounter for screening mammogram for malignant neoplasm of breast (principal)
CPT/HCPCS: 77063; 77067

== ENCOUNTER 2024-08-19 16:28 | Outpatient (CLI) | payer MEDICARE, SELFPAY ==
[2024-08-19 17:32] LABS: Basophils # 0.1 K/mm3 (0-0.2); Basophils % 0.9 % (0.1-2.0); Eosinophils # 0.2 K/mm3 (0.0-0.4); Eosinophils % 1.5 % (0.1-12.0); Hematocrit 39.9 % (37.0-47.0); Hemoglobin 13.9 g/dL (12.2-16.2); Lymphocytes # 3.5 K/mm3 (0.7-4.5); Lymphocytes % 33.5 % (10-50); Mean Corpuscular HGB Conc 34.8 g/dL (31.8-35.4); Mean Corpuscular Hemoglobin 30.9 pg (27.0-31.2); Mean Corpuscular Volume 88.7 fl (81-99); Mean Platelet Volume 11.1 fl (7.4-10.4); Monocytes # 0.6 K/mm3 (0.1-1.0); Neutrophils # 6.1 K/mm3 (1.8-7.8); Neutrophils % 57.7 % (37.0-80.0); Nucleated Red Blood Cells # 0 10^3/uL; Nucleated Red Blood Cells % 0 %; Platelet Count 268 K/mm3 (142-424); Red Cell Distribution Width 12.5 % (11.5-17.5); Red Cell Distribution Width-SD 40.7 fL; White Blood Count 10.5 K/mm3 (4.8-10.8)
[2024-08-19 18:31] LABS: Albumin Level 4.4 g/dl (3.5-5.0); Chloride 104 mmol/L (98-107); Potassium 4.2 mmoL/L (3.5-5.1); Sodium 138 mmol/L (136-145)
[2024-08-19 18:34] LABS: Alanine Aminotransferase 16 U/L (12-78); Albumin/Globulin Ratio 1.6 (1.1-1.8); Alkaline Phosphatase 80 U/L (38-126); Anion Gap 13.2 mEq/L (5-15); Aspartate Amino Transferase 26 U/L (14-36); Bilirubin,Total 0.4 mg/dl (0.2-1.3); Blood Urea Nitrogen 20 mg/dl (7-17); Calcium 9.2 mg/dl (8.4-10.2); Carbon Dioxide 25 mmol/L (22.0-30.0); Estimated Glomerular Filt Rate 65 ml/min (>60); GFR (African American) 78 ML/MIN (>60); Globulin 2.7 g/dL (1.3-3.2); Glucose 96 mg/dl (74-100); Magnesium 1.8 mg/dl (1.6-2.3); Total Protein,Serum 7.1 g/dl (6.3-8.2)
[2024-08-19 18:46] LABS: C-Reactive Protein 2.9 mg/L (0-4)
[2024-08-19 19:11] LABS: Thyroid Stimulating Hormone 0.77 uIU/mL (0.465-4.68)
[2024-08-19 19:15] LABS: Ferritin 22.1 ng/ml (11.1-264)
[2024-08-19 19:22] LABS: 25-OH Vitamin D, Total 30.4 ng/mL (30-100)
[2024-08-19 20:11] LABS: Vitamin B12 285 pg/mL (239-931)
[2024-08-19 20:39] LABS: Hemoglobin A1C 5.1 % (4.0-6.0)
--- OUTSIDE RECORDS SUMMARY | 2024-08-20 15:48 | XMS_ITS | Clinical Summary ---
Author Organization [facility] , [facility] Address [address] [place] [address] Phone Care Team Providers Care Qa Reviewer Name Role Phone IGNACIO HARTMAN Unavailable [phone] Nikunj HA, Joey Vieira Unavailable [phone] Reason for Visit and Chief Complaint The Chief Complaint is: Right thumb and hand pain Problems Includes: Problems addressed during this encounter and other active Problems Current Visit Onset Date Resolved Date Provider Conditio n Status Lower Back Pain 01/17/2023 Richard Palomo PA-C A ctive Last Documented On 3 2:28PM ; [facility], [facility] Lower Back Pain 10/23/2020 11/15/2021 Janell Vila PA-C Resolved Last Documented On 2 9:13AM ; [facility], [facility] Past Visits Onset Date Resolved Date Provider Condition Status Joint Pain Right Thumb 08/23/2023 Karlos de paz PA-C Active Last Documented On 4 10:36AM ; [facility], [facility] Joint Pain in the Left Hip 06/14/2022 Richard alves PA-C Active Last Documented On 3 3:30PM ; [facility], [facility] Joint Pain in the Right Knee 03/25/2022 Janell Vila PA-C Active Last Documented On 2 12:58PM ; [facility], [facility] Plan of Treatment Future Appointments Date Time Location Provi talat Follow Up 09/04/2024 2:00PM [facility] Last Documented On 5 1:57PM ; [facility], [facility] Instructions to patient Intervention and counseling on cessation of tobacco use Last Documented On 4 1:05PM ; [facility], [facility] Lose weight Last Documented On 4 1:05PM ; [facility], [facility] Assessments Includes: Assessments from this encounter Findings - Overweight - Last Documented On 03/06/2024 4:06PM ; [facility], [facility] 58-year-old 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 [...] - Last Documented On 03/06/2024 4:06PM ; [facility], [facility] Instructions Includes: Instructions from this encounter Instructions to patient Intervention and counseling on cessation of tobacco use Last Documented On 4 1:05PM ; [facility], [facility] Lose weight Last Documented On 4 1:05PM ; [facility], [facility] Medical Equipment - Implanted Devices Includes: Current Devices No Medical Equipment Recorded Medications Includes: Medications discussed during this encounter and other current Medications Current Medications (continue as prescribed) Naproxen 500 MG Oral Tablet 06/24/2023 Provider: IGNACIO HARTMAN Diagnosis: Last Documented On 4 10:41AM By Geni Johns ; [facility], [facility] HYDROcodone-Acetaminophen 5-325 MG Oral Tablet 024 Provider: Diagnosis: Last Documented On 4 10:41AM By Geni Johns ; [facility], [facility] Repatha SureClick 140 MG/ML Subcutaneous Solution Auto-injector 06/08/2023 Provider: Diagnosis: Last Documented On 4 10:41AM By Geni Johns ; [facility], [facility] Pantoprazole Sodium 40 MG Or al Tablet Delayed Release 06/06/2023 Provider: IGNACIO HARTMAN Diagnosis: Last Documented On 4 10:41AM By Geni Johns ; [facility] Sertraline HCl 100 MG Oral Tablet 06/06/2023 Provide r: IGNACIO HARTMAN Diagnosis: Last Documented On 4 10:41AM By Geni Johns ; [facility] Fluconazole 100 MG Oral Tablet 06/06/2023 Provider: IGNACIO HARTMAN Diagnosis: Last Documented On 4 10:41AM By Geni Johns ; [facility] Ondansetron 4 MG Oral Tablet Disintegrating 06/06/2023 Provider: IGNACIO HARTMAN Diagnosis: Last Documented On 4 10:41AM By Geni Johns ; [facility] Albuterol Sulfate (2.5 MG/3M L) 0.083% Inhalation Nebulization solution 05/15/2023 Provider: IGNACIO HARTMAN Diagnosis: Last Documented On 4 10:41AM By Geni Johns ; [facility] Famotidine 20 MG Oral Tablet 05/12/2023 Provider: IGNACIO HARTMAN Diagnosis: Last Documented On 4 10:41AM By Geni Johns ; [facility] Nystatin 798654 UNIT/ML Mouth/Throat Suspension 2023 Provider: IGNACIO HARTMAN Diagnosis: Last Documented On 4 10:41AM By Geni Johns ; [facility], [facility] Rosuvastatin Calcium 10 MG Oral Tablet 02/23/2023 Pr ovider: Diagnosis: Last Documented On 4 10:41AM By Geni Johns ; [facility] Pregabalin 50 MG Oral Capsule 02/13/2023 Provider: IGNACIO HARTMAN Diagnosis: Last Documented On 4 10:41AM By Geni Johns ; [facility] Amitriptyline HCl 10 MG Oral Tablet 01/10/2023 Provi talat: IGNACIO SPEARNER Diagnosis: Last Documented On 3 11:02AM By Geni Johns ; [facility] Prasugrel HCl 10 MG Oral Tablet 01/03/2023 Provider: Diagnosis: Last Documented On 4 10:41AM By Geni Johns ; [facility], [facility] DULoxetine HCl 30 MG Oral Ca psule Delayed Release Particles 11/04/2022 Provider: IGNACIO HARTMAN Diagnosis: Last Documented On 4 10:41AM By Geni Johns ; [facility], [facility] Carvedilol 3.125 MG Oral Tablet 09/23/2022 Provider: Diagnosis: Last Documented On 4 10:41AM By Geni Johns ; [facility], [facility] Esomeprazole Magnesium 40 MG Oral Capsule Delayed Rele ase 06/24/2022 Provider: Diagnosis: Last Documented On 3 10:19AM By Selina Lucas ; [facility], [facility] tiZANidine HCl 2 MG Oral Tablet 06/24/2022 Provider: Diagnosis: Last Documented On 3 10:19AM By Selina Lucas ; [facility], [facility] Past Medications on file Meloxicam 15 MG Oral Tablet 06/30/2023 - 07/30/2023 Pr ovider: Richard Palomo PA-C Diagnosis: Take t tablet by mouth once a day Last Documented On 4 11:20AM By Geni Johns ; [facility], [facility] Medications Administered Includes: Administered Medications from this encounter No Administered Medications Recorded Vital Signs Includes: Vital Signs from this encounter Vital Name 03/06/2024 01:06P Height (in) 67 Weight (lb) 257 Body Mass Index 40.3 Body Surface Area 2.2 Note: KL Last Documented: On 03/06/2024 1:06PM ; [facility], [facility] Results Includes: Results discussed during this [...] 12/08/2020 Last Documented On 4 1:05PM ; [facility], [facility] Smoking Status Unknown Procedures and Surgical History Includes: Procedures from this encounter Procedures Code Diagnosis Performing Provider Service L ocation Service Date intervention and counseling on cessation of tobacco use 4000F Last Documented On 4 1:05PM ; [facility], [facility] use of tobacco assessment performed 1000F Last Documented On 4 1:05PM ; [facility], [facility] review of medications documented 1160F Last Documented On 4 1:05PM ; [facility] an X-ray was performed 92448 Last Documented On 4 1:05PM ; [facility], [facility] brace Last Documented On 4 1:05PM ; [facility] Surgical History Last Updated History of History of Gallbladder 2021 Last Documented On 4 1:05PM ; [facility], [facility] History of shoulder arthroplasty 022 Last Documented On 4 1:05PM ; [facility] History of total knee arthroplasty 11/15 Last Documented On 4 1:05PM ; [facility] History of Past Surgical History: 2021 Last Documented On 4 1:05PM ; [facility] Medical History Includes: Medical History addressed during this encounter Description Last Updated No recent immunization for flu 2 Last Documented On 4 1:05PM ; [facility] No recent immunization for pneumococcal pneumonia 03/25/2022 Last Documented On 4 1:05PM ; [facility] History of arthritis 11/15/2021 Last Documented On 4 1:05PM ; [facility] History of asthma 11/15/2021 Last Documented On 4 1:05PM ; [facility] History of depression 11/15/2021 Last Documented On 4 1:05PM ; [facility], [facility] History of heart disease 11/15/2021 Last Documented On 4 1:05PM ; [facility] History of History of Blood Clots 2021 Last Documented On 4 1:05PM ; [facility] History of History of Heart Attack / Str giselle 11/15/2021 Last Documented On 4 1:05PM ; [facility] History of osteoporosis 11/15/2021 Last Documented On 4 1:05PM ; [facility] Arthritis 11/15/2021 Last Documented On 4 1:05PM ; [facility] Asthma 11/15/2021 Last Documented On 4 1:05PM ; [facility] Depression 11/15/2021 Last Documented On 4 1:05PM ; [facility] Heart disease 11/15/2021 Last Documented On 4 1:05PM ; [facility] Heartburn / Acid Reflux 11/15/2021 Last Documented On 4 1:05PM ; [facility] History of Blood Clots 11/15/2021 Last Documented On 4 1:05PM ; [facility] History of Gallbladder 11/15/2021 Last Documented On 4 1:05PM ; [facility] History of Heart Attack / Stroke 022 Last Documented On 4 1:05PM ; [facility] Osteoporosis 11/15/2021 Last Documented On 4 1:05PM ; [facility] Shoulder arthroplasty 11/15/2021 Last Documented On 4 1:05PM ; [facility] Total knee arthroplasty 11/15/2021 Last Documented On 4 1:05PM ; [facility], [facility] Family History Includes: Family History addressed during this encounter Description Last Updated Family history of cancer 11/15/2021 Last Documented On 4 1:05PM ; [facility], [facility] Family history of heart disease 11/16/19 22 Last Documented On 4 1:05PM ; [facility] Family history of rheumatoid arthritis 0 11/15/2021 Last Documented On 4 1:05PM ; [facility] Maternal grandfather's history of family history of heart disease 11/15/2021 Last Documented On 4 1:05PM ; [facility] Maternal grandmother's history of family history of heart disease 11/15/2021 Last Documented On 4 1:05PM ; [facility], [facility] Maternal grandmother's history of rheuma toid arthritis 11/15/2021 Last Documented On 4 1:05PM ; [facility] Maternal history of family history of ca ncer 11/15/2021 Last Documented On 4 1:05PM ; [facility], [facility] Maternal history of family history of he art disease 11/15/2021 Last Documented On 4 1:05PM ; [facility] Paternal grandfather's history of family history of heart disease 11/15/2021 Last Documented On 4 1:05PM ; [facility], [facility] Diabetes mellitus 12/08/2020 Last Documented On 4 1:05PM ; [facility], [facility] Review of Systems Includes: Review of [...] Time Diagnosis Follow Up Karlos Nunez PA-C [facility] 4 12:58PM 1:18PM Overweight Insurance Includes: Active Insurance Policies Plan Name Member ID Group # Subscriber Relationship Effect daksha Dates 1 - [employer] [id number] Mela Neves Self Clinical Notes Includes: Clinical Notes from this encounter * Progress note Date Encounter Last Documented by 03/06/2024 Follow Up Last documented on 03/06/2024; 4:06 PM, Karlos Mcneil; [facility] Active Problems & Conditions - Joint [...] Tablet 30 days, 0 refills - Nystatin [id number] UNIT/ML Mouth/Throat Suspension 14 days, 0 refills [...]
--- OUTSIDE RECORDS SUMMARY | 2024-08-20 15:49 | XMS_ITS | Clinical Summary ---
Author Organization [facility] Address [address] [place] [address] Phone Care Team Providers Care Computer Programming Supervisor Name Role Phone IGNACIO HARTMAN Unavailable [phone] Nikunj HA, Joey Vieira Unavailable [phone] Reason for Visit and Chief Complaint The Chief Complaint is: Right thumb and hand pain Problems Includes: Problems addressed during this encounter and other active Problems Current Visit Onset Date Resolved Date Provider Conditio n Status Lower Back Pain 01/17/2023 Richard Palomo PA-C A ctive Last Documented On 3 2:28PM ; [facility] Lower Back Pain 10/23/2020 11/15/2021 Janell Vila PA-C Resolved Last Documented On 2 9:13AM ; [facility] Past Visits Onset Date Resolved Date Provider Condition Status Joint Pain Right Thumb 08/23/2023 Karlos de paz PA-C Active Last Documented On 4 10:36AM ; [facility] Joint Pain in the Left Hip 06/14/2022 Richard alves PA-C Active Last Documented On 3 3:30PM ; [facility] Joint Pain in the Right Knee 03/25/2022 Janell Vila PA-C Active Last Documented On 2 12:58PM ; [facility] Plan of Treatment Future Appointments Date Time Location Provi talat Follow Up 09/04/2024 2:00PM [facility] Last Documented On 5 1:57PM ; [facility] Instructions to patient Intervention and counseling on cessation of tobacco use Last Documented On 4 1:08PM ; [facility] Lose weight Last Documented On 4 1:08PM ; [facility] Assessments Includes: Assessments from this encounter Findings - Overweight - Last Documented On 11/29/2023 1:34PM ; [facility] Instructions Includes: Instructions from this encounter Instructions to patient Intervention and counseling on cessation of tobacco use Last Documented On 4 1:08PM ; [facility] Lose weight Last Documented On 4 1:08PM ; [facility] Medical Equipment - Implanted Devices Includes: Current Devices No Medical Equipment Recorded Medications Includes: Medications discussed during this encounter and other current Medications Current Medications (continue as prescribed) Naproxen 500 MG Oral Tablet 06/24/2023 Provider: IGNACIO HARTMAN Diagnosis: Last Documented On 4 10:41AM By Geni Johns ; [facility] HYDROcodone-Acetaminophen 5-325 MG Oral Tablet 024 Provider: Diagnosis: Last Documented On 4 10:41AM By Geni Johns ; [facility] Repatha SureClick 140 MG/ML Subcutaneous Solution Auto-injector 06/08/2023 Provider: Diagnosis: Last Documented On 4 10:41AM By Geni Johns ; [facility] Pantoprazole Sodium 40 MG Or al Tablet Delayed Release 06/06/2023 Provider: IGNACIO HARTMAN Diagnosis: Last Documented On 4 10:41AM By Geni Johns ; [facility] Sertraline HCl 100 MG Oral Tablet 06/06/2023 Provide r: IGNACIO HARTMAN Diagnosis: Last Documented On 4 10:41AM By Geni Johns ; [facility] Fluconazole 100 MG Oral Tablet 06/06/2023 Provider: IGNACIO HARTMAN Diagnosis: Last Documented On 4 10:41AM By Geni Johns ; [facility] Ondansetron 4 MG Oral Tablet Disintegrating 06/06/2023 Provider: IGNACIO HARTMAN Diagnosis: Last Documented On 4 10:41AM By Geni Johns ; [facility] Albuterol Sulfate (2.5 MG/3M L) 0.083% Inhalation Nebulization solution 05/15/2023 Provider: IGNACIO HARTMAN Diagnosis: Last Documented On 4 10:41AM By Geni Johns ; [facility] Famotidine 20 MG Oral Tablet 05/12/2023 Provider: IGNACIO HARTMAN Diagnosis: Last Documented On 4 10:41AM By Geni Johns ; [facility] Nystatin [id number] UNIT/ML Mouth/Throat Suspension 2023 Provider: IGNACIO HARTMAN Diagnosis: Last Documented On 4 10:41AM By Geni Johns ; [facility] Rosuvastatin Calcium 10 MG Oral Tablet 02/23/2023 Pr ovider: Diagnosis: Last Documented On 4 10:41AM By Geni Johns ; [facility] Pregabalin 50 MG Oral Capsule 02/13/2023 Provider: IGNACIO HARTMAN Diagnosis: Last Documented On 4 10:41AM By Geni Johns ; [facility] Amitriptyline HCl 10 MG Oral Tablet 01/10/2023 Provi talat: IGNACIO HARTMAN Diagnosis: Last Documented On 3 11:02AM By Geni Johns ; [facility] Prasugrel HCl 10 MG Oral Tablet 01/03/2023 Provider: Diagnosis: Last Documented On 4 10:41AM By Geni Johns ; [facility] DULoxetine HCl 30 MG Oral Ca psule Delayed Release Particles 11/04/2022 Provider: IGNACIO HARTMAN Diagnosis: Last Documented On 4 10:41AM By Geni Johns ; [facility] Carvedilol 3.125 MG Oral Tablet 09/23/2022 Provider: Diagnosis: Last Documented On 4 10:41AM By Geni Johns ; [facility] Esomeprazole Magnesium 40 MG Oral Capsule Delayed Rele ase 06/24/2022 Provider: Diagnosis: Last Documented On 3 10:19AM By Selina Lucas ; [facility] tiZANidine HCl 2 MG Oral Tablet 06/24/2022 Provider: Diagnosis: Last Documented On 3 10:19AM By Selina Lucas ; [facility] Past Medications on file Meloxicam 15 MG Oral Tablet 06/30/2023 - 07/30/2023 Pr ovider: Richard Palomo PA-C Diagnosis: Take t tablet by mouth once a day Last Documented On 4 11:20AM By Geni Johns ; [facility] Medications Administered Includes: Administered Medications from [...] 06/24/2022 Last Documented On 4 1:08PM ; [facility] Tobacco non-user 03/25/2022 Last Documented On 4 1:08PM ; [facility] Exercising regularly 03/25/2022 Last Documented On 4 1:08PM ; [facility] No recent change in diet 03/25/2022 Last Documented On 4 1:08PM ; [facility] Not a smoker 03/25/2022 Last Documented On 4 1:08PM ; [facility] Not using alcohol 03/25/2022 Last Documented On 4 1:08PM ; [facility] Not using drugs 03/25/2022 Last Documented On 4 1:08PM ; [facility] Non-smoker 12/08/2021 Last Documented On 4 1:08PM ; [facility] Caffeine use 11/15/2021 Last Documented On 4 1:08PM ; [facility] Yes, current smoker. 11/15/2021 Last Documented On 4 1:08PM ; [facility] Never drank alcohol 11/15/2021 Last Documented On 4 1:08PM ; [facility] Never used drugs 11/15/2021 Last Documented On 4 1:08PM ; [facility] No recent change in diet 12/08/2020 Last Documented On 4 1:08PM ; [facility] Yes, current smoker. 12/08/2020 Last Documented On 4 1:08PM ; [facility] Smoking Status Unknown Procedures and Surgical History Includes: Procedures from this encounter Procedures Code Diagnosis Performing Provider Service Location Service Date DRAIN/INJECT, JOINT/BURSA (RIGHT) Unil primary osteoarth of first carpometacarp joint, r hand Karlos Nunez PA-C [facility] 11/29/2023 Last Documented On 4 7:29AM ; [facility] Injection, betamethasone acetate 6mg per cc and betamethason J0702 Unil primary osteoarth of first carpometacarp joint, r hand Karlos Nunez PA-C [facility] 11/29/2023 Last Documented On 4 7:29AM ; [facility] intervention and counseling on 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 of 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 project 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 use 4000F Last Documented On 4 1:08PM ; [facility] use of tobacco assessment performed 1000F Last Documented On 4 1:08PM ; [facility] review of medications documented 1160F Last Documented On 4 1:08PM ; [facility] an X-ray was performed 08104 Last Documented On 4 1:08PM ; [facility] brace Last Documented On 4 1:08PM ; [facility] Surgical History Last Updated History of History of Gallbladder 2021 Last Documented On 4 1:08PM ; [facility] History of shoulder arthroplasty 022 Last Documented On 4 1:08PM ; [facility] History of total knee arthroplasty 11/15 Last Documented On 4 1:08PM ; [facility] History of Past Surgical History: 2021 Last Documented On 4 1:08PM ; [facility] Medical History Includes: Medical History addressed during this encounter Description Last Updated No recent immunization for flu 2 Last Documented On 4 1:08PM ; [facility] No recent immunization for pneumococcal pneumonia 03/25/2022 Last Documented On 4 1:08PM ; [facility] History of arthritis 11/15/2021 Last Documented On 4 1:08PM ; [facility] History of asthma 11/15/2021 Last Documented On 4 1:08PM ; [facility] History of depression 11/15/2021 Last Documented On 4 1:08PM ; [facility] History of heart disease 11/15/2021 Last Documented On 4 1:08PM ; [facility] History of History of Blood Clots 2021 Last Documented On 4 1:08PM ; [facility] History of History of Heart Attack / Str giselle 11/15/2021 Last Documented On 4 1:08PM ; [facility] History of osteoporosis 11/15/2021 Last Documented [...] 11/15/2021 Last Documented On 4 1:08PM ; [facility] Family history of heart disease [...] 11/15/2021 Last Documented On 4 1:08PM ; [facility] Maternal history of family history of ca ncer 11/15/2021 Last Documented On 4 1:08PM ; [facility] Maternal history of family history of he art disease 11/15/2021 Last Documented On 4 1:08PM ; [facility] Paternal grandfather's history of family history of heart disease 11/15/2021 Last Documented On 4 1:08PM ; [facility] Diabetes mellitus 12/08/2020 Last Documented On 4 1:08PM ; [facility] Review of Systems Includes: Review of [...] Time Diagnosis Follow Up [facility] 1:44PM Overweight Insurance Includes: Active Insurance Policies Plan Name Member ID Group # Subscriber Relationship Effect daksha Dates 1 - [facility] JENNIFER [id number] Mela Neves Self Clinical Notes Includes: Clinical Notes from this encounter * Progress note Date Encounter Last Documented by 11/29/2023 Follow Up Last documented on 11/29/2023; 1:34 PM, Karlos Mcneil; [facility] Active Problems & Conditions - Joint [...] Tablet 30 days, 0 refills - Nystatin [id number] UNIT/ML Mouth/Throat Suspension 14 days, 0 refills [...]
--- OUTSIDE RECORDS SUMMARY | 2024-08-20 15:49 | XMS_ITS ---
Care Plan - [facility], [facility] Created on: August 20, 2024 Jimena Nevesline : 1965 Sex: Female Author Organization [facility] Address [address] [place] [address] Phone Care Team Providers Care Corporate General Manager Name Role Phone PEOPLESDILIP RUANOE Unavailable [phone] Nikunj HA, Joey Vieira Unavailable [phone]
--- OUTSIDE RECORDS SUMMARY | 2024-08-20 15:49 | XMS_ITS | Clinical Summary ---
Author Organization [facility] , [facility] Address [address] [place] [address] Phone Care Team Providers Care Bilingual Case Manager Name Role Phone IGNACIO HARTMAN Unavailable [phone] Nikunj HA, Joey Vieira Unavailable [phone] Reason for Visit and Chief Complaint The Chief Complaint is: lt elbow pain Problems Includes: Problems addressed during this encounter and other active Problems Current Visit Onset Date Resolved Date Provider Conditio n Status Lower Back Pain 01/17/2023 Richard Palomo PA-C A ctive Last Documented On 3 2:28PM ; [facility], [facility] Lower Back Pain 10/23/2020 11/15/2021 Janell Vila PA-C Resolved Last Documented On 2 9:13AM ; [facility], [facility] Past Visits Onset Date Resolved Date Provider Condition Status Joint Pain Right Thumb 08/23/2023 Karlos de paz PA-C Active Last Documented On 4 10:36AM ; [facility] Joint Pain in the Left Hip 06/14/2022 Richard alves PA-C Active Last Documented On 3 3:30PM ; [facility] Joint Pain in the Right Knee 03/25/2022 Janell Vila PA-C Active Last Documented On 2 12:58PM ; [facility], [facility] Plan of Treatment Pending Tests Order Diagnosis Results Due Ordering P rovider Therapy - Occupational Therapy Elbow Overweight 06/05 Karlos Nunez PA-C Last Documented On 5 3:40PM ; [facility], [facility] Future Appointments Date Time Location Provi talat Follow Up 09/04/2024 2:00PM [facility] YAMILE Nunez PA-C Last Documented On 5 1:57PM ; [facility] Instructions to patient Lose weight Last Documented On 5 1:01PM ; [facility], [facility] Assessments Includes: Assessments from this encounter Findings - Overweight - Last Documented On 06/05/2024 3:40PM ; [facility], [facility] Instructions Includes: Instructions from this encounter Instructions to patient Lose weight Last Documented On 5 1:01PM ; [facility], [facility] Medical Equipment - Implanted Devices Includes: Current Devices No Medical Equipment Recorded Medications Includes: Medications discussed during this encounter and other current Medications Current Medications (continue as prescribed) Naproxen 500 MG Oral Tablet 06/24/2023 Provider: IGNACIO HARTMAN Diagnosis: Last Documented On 4 10:41AM By Geni Johns ; [facility], [facility] HYDROcodone-Acetaminophen 5-325 MG Oral Tablet 024 Provider: Diagnosis: Last Documented On 4 10:41AM By Geni Johns ; [facility], [facility] Repatha SureClick 140 MG/ML Subcutaneous Solution Auto-injector 06/08/2023 Provider: Diagnosis: Last Documented On 4 10:41AM By Geni Johns ; [facility], [facility] Pantoprazole Sodium 40 MG Or al Tablet Delayed Release 06/06/2023 Provider: IGNACIO HARTMAN Diagnosis: Last Documented On 4 10:41AM By Geni Johns ; [facility], [facility] Sertraline HCl 100 MG Oral Tablet 06/06/2023 Provide r: IGNACIO HARTMAN Diagnosis: Last Documented On 4 10:41AM By Geni Johns ; [facility], [facility] Fluconazole 100 MG Oral Tablet 06/06/2023 Provider: IGNACIO HARTMAN Diagnosis: Last Documented On 4 10:41AM By Geni Johns ; [facility], [facility] Ondansetron 4 MG Oral Tablet Disintegrating 06/06/2023 Provider: IGNACIO HARTMAN Diagnosis: Last Documented On 4 10:41AM By Geni Johns ; [facility], [facility] Albuterol Sulfate (2.5 MG/3M L) 0.083% Inhalation Nebulization solution 05/15/2023 Provider: IGNACIO HARTMAN Diagnosis: Last Documented On 4 10:41AM By Geni Johns ; [facility] Famotidine 20 MG Oral Tablet 05/12/2023 Provider: IGNACIO HARTMAN Diagnosis: Last Documented On 4 10:41AM By Geni Johns ; [facility] Nystatin 797284 UNIT/ML Mouth/Throat Suspension 2023 Provider: IGNACIO HARTMAN Diagnosis: Last Documented On 4 10:41AM By Geni Johns ; [facility], [facility] Rosuvastatin Calcium 10 MG Oral Tablet 02/23/2023 Pr ovider: Diagnosis: Last Documented On 4 10:41AM By Geni Johns ; [facility] Pregabalin 50 MG Oral Capsule 02/13/2023 Provider: IGNACIO HARTMAN Diagnosis: Last Documented On 4 10:41AM By Geni Johns ; [facility], [facility] Amitriptyline HCl 10 MG Oral Tablet 01/10/2023 Provi talat: IGNACIO HARTMAN Diagnosis: Last Documented On 3 11:02AM By Geni Johns ; [facility] Prasugrel HCl 10 MG Oral Tablet 01/03/2023 Provider: Diagnosis: Last Documented On 4 10:41AM By Geni Johns ; [facility] DULoxetine HCl 30 MG Oral Ca psule Delayed Release Particles 11/04/2022 Provider: IGNACIO HARTMAN Diagnosis: Last Documented On 4 10:41AM By Geni Johns ; [facility] Carvedilol 3.125 MG Oral Tablet 09/23/2022 Provider: Diagnosis: Last Documented On 4 10:41AM By Geni Johns ; [facility] Esomeprazole Magnesium 40 MG Oral Capsule Delayed Rele ase 06/24/2022 Provider: Diagnosis: Last Documented On 3 10:19AM By Selina Lucas ; [facility], [facility] tiZANidine HCl 2 MG Oral Tablet 06/24/2022 Provider: Diagnosis: Last Documented On 3 10:19AM By Selina Lucas ; [facility], [facility] Past Medications on file Meloxicam 15 MG Oral Tablet 06/30/2023 - 07/30/2023 Pr ovider: Richard Palomo PA-C Diagnosis: Take t tablet by mouth once a day Last Documented On 4 11:20AM By Geni Johns ; [facility], [facility] Medications Administered Includes: Administered Medications from this encounter No Administered Medications Recorded Vital Signs Includes: Vital Signs from this encounter Vital Name 06/05/2024 01:02P Height (in) 67 Weight (lb) 257 Body Mass Index 40.3 Body Surface Area 2.2 Note: mg Last Documented: On 06/05/2024 1:02PM ; [facility], [facility] Results Includes: Results discussed during this [...] 06/24/2022 Last Documented On 5 1:01PM ; [facility] Tobacco non-user 03/25/2022 Last Documented On 5 1:01PM ; [facility], [facility] Exercising regularly 03/25/2022 Last Documented On 5 [...] 11/15/2021 Last Documented On 5 1:01PM ; [facility] Never drank alcohol 11/15/2021 Last Documented On 5 1:01PM ; [facility] Never used drugs 11/15/2021 Last Documented On 5 1:01PM ; [facility] No recent change in diet 12/08/2020 Last Documented On 5 1:01PM ; [facility] Yes, current smoker. 12/08/2020 Last Documented On 5 1:01PM ; [facility] Smoking Status Unknown Procedures and Surgical History Includes: Procedures from this encounter Procedures Code Diagnosis Performing Provider Service Location Service Date DRAIN/INJECT, JOINT/BURSA (RIGHT) Unil primary osteoarth of first carpometacarp joint, r hand Nikolai Fagan MD [facility] 06/05/2024 Last Documented On 5 12:32PM ; [facility], [facility] Injection, betamethasone acetate 6mg per cc and betamethason J0702 Unil primary osteoarth of first carpometacarp joint, r charmaine Fagan MD [facility] 06/05/2024 Last Documented On 5 12:32PM ; [facility] use of tobacco assessment performed 1000F Last Documented On 5 1:01PM ; [facility], [facility] review of medications documented 1160F Last Documented On 5 1:01PM ; [facility], [facility] an X-ray was performed 93764 Last Documented On 5 1:01PM ; [facility], [facility] brace Last Documented On 5 1:01PM ; [facility], [facility] Surgical History Last Updated History of History of Gallbladder 2021 Last Documented On 5 1:01PM ; [facility] History of shoulder arthroplasty 022 Last Documented On 5 1:01PM ; [facility] History of total knee arthroplasty 11/15 Last Documented On 5 1:01PM ; [facility], [facility] History of Past Surgical History: 2021 Last Documented On 5 1:01PM ; [facility], [facility] Medical History Includes: Medical History addressed during this encounter Description Last Updated No recent immunization for flu Last Documented On 5 1:01PM ; [facility], [facility] No recent immunization for pneumococcal pneumonia 03/25/2022 Last Documented On 5 1:01PM ; [facility] History of arthritis 11/15/2021 Last Documented On 5 1:01PM ; [facility] History of asthma 11/15/2021 Last Documented On 5 1:01PM ; [facility] History of depression 11/15/2021 Last Documented On 5 1:01PM ; [facility], [facility] History of heart disease 11/15/2021 Last Documented On 5 1:01PM ; [facility] History of History of Blood Clots 2021 Last Documented On 5 1:01PM ; [facility], [facility] History of History of Heart Attack / Str giselle 11/15/2021 Last Documented On 5 1:01PM ; [facility], [facility] History of osteoporosis 11/15/2021 Last Documented On 5 1:01PM ; [facility] Arthritis 11/15/2021 Last Documented On 5 1:01PM ; [facility] Asthma 11/15/2021 Last Documented On 5 1:01PM ; [facility] Depression 11/15/2021 Last Documented On 5 1:01PM ; [facility] Heart disease 11/15/2021 Last Documented On 5 1:01PM ; [facility] Heartburn / Acid Reflux 11/15/2021 Last Documented On 5 1:01PM ; [facility] History of Blood Clots 11/15/2021 Last Documented On 5 1:01PM ; [facility] History of Gallbladder 11/15/2021 Last Documented On 5 1:01PM ; [facility], [facility] History of Heart Attack / Stroke 022 Last Documented On 5 1:01PM ; [facility] Osteoporosis 11/15/2021 Last Documented On 5 1:01PM ; [facility], [facility] Shoulder arthroplasty 11/15/2021 Last Documented On 5 1:01PM ; [facility], [facility] Total knee arthroplasty 11/15/2021 Last Documented On 5 1:01PM ; [facility], [facility] Family History Includes: Family History addressed during this encounter Description Last Updated Family history of cancer 11/15/2021 Last Documented On 5 1:01PM ; [facility], [facility] Family history of heart disease 11/16/19 22 Last Documented On 5 1:01PM ; [facility], [facility] Family history of rheumatoid arthritis 0 11/15/2021 Last Documented On 5 1:01PM ; [facility], [facility] Maternal grandfather's history of family history of heart disease 11/15/2021 Last Documented On 5 1:01PM ; [facility], [facility] Maternal grandmother's history of family history of heart disease 11/15/2021 Last Documented On 5 1:01PM ; [facility], [facility] Maternal grandmother's history of rheuma toid arthritis 11/15/2021 Last Documented On 5 1:01PM ; [facility], [facility] Maternal history of family history of ca ncer 11/15/2021 Last Documented On 5 1:01PM ; [facility], [facility] Maternal history of family history of he art disease 11/15/2021 Last Documented On 5 1:01PM ; [facility], [facility] Paternal grandfather's history of family history of heart disease 11/15/2021 Last Documented On 5 1:01PM ; [facility] Diabetes mellitus 12/08/2020 Last Documented On 5 1:01PM ; [facility], [facility] Review of Systems Includes: Review [...] Diagnosis NEW PROBLEM/EST PT Karlos Nunez PA-C [facility] 06/05/19 1:00PM 1:44PM Overweight Insurance Includes: Active Insurance Policies Plan Name Member ID Group # Subscriber Relationship Effect daksha Dates [facility] [id number] Mela Neves Self Clinical Notes Includes: Clinical Notes from this encounter * Progress note Date Encounter Last Documented by 06/05/2024 NEW PROBLEM/EST PT Last document ed on 06/05/2024; 3:40 PM, Karlos Nunez PA-C; [facility], [facility] Active Problems & Conditions - Joint [...] Tablet 30 days, 0 refills - Nystatin [id number] UNIT/ML Mouth/Throat Suspension 14 days, 0 refills [...]
--- OUTSIDE RECORDS SUMMARY | 2024-08-20 15:49 | XMS_ITS | Clinical Summary ---
Author Organization [facility] , [facility] Address [address] [place] [address] Phone Care Team Providers Care Vault Person Name Role Phone IGNACIO PEOPLES Unavailable [phone] Nikunj HA, Joey Vieira Unavailable [phone] Reason for Visit and Chief Complaint [employer] Problems Includes: Problems addressed during this encounter and other active Problems All Visits Onset Date Resolved Date Provider Condition S tatus Joint Pain Right Thumb 08/23/2023 Karlos de paz PA-C Active Last Documented On 4 10:36AM ; [facility], [facility] Lower Back Pain 01/17/2023 Richard Palomo PA-C A ctive Last Documented On 3 2:28PM ; [facility], [facility] Joint Pain in the Left Hip 06/14/2022 Richard alves PA-C Active Last Documented On 3 3:30PM ; [facility] Joint Pain in the Right Knee 03/25/2022 Janell Vila PA-C Active Last Documented On 2 12:58PM ; [facility], [facility] Plan of Treatment Future Appointments Date Time Location Provi talat Follow Up 09/04/2024 2:00PM [facility] Last Documented On 5 1:57PM ; [facility], [facility] Assessments Includes: Assessments from this encounter No Assessments Recorded Medical Equipment - Implanted Devices Includes: Current Devices No Medical Equipment Recorded Medications Includes: Medications discussed during this encounter and other current Medications Current Medications (continue as prescribed) Naproxen 500 MG Oral Tablet 06/24/2023 Provider: IGNACIO PEOPLES Diagnosis: Last Documented On 4 10:41AM By Geni Johns ; [facility], [facility] HYDROcodone-Acetaminophen 5-325 MG Oral Tablet 024 Provider: Diagnosis: Last Documented On 4 10:41AM By Geni Johns ; [facility], [facility] Repatha SureClick 140 MG/ML Subcutaneous Solution Auto-injector 06/08/2023 Provider: Diagnosis: Last Documented On 4 10:41AM By Geni Johns ; [facility], [facility] Pantoprazole Sodium 40 MG Or al Tablet Delayed Release 06/06/2023 Provider: IGNACIO PEOPLES Diagnosis: Last Documented On 4 10:41AM By Geni Johns ; [facility], [facility] Sertraline HCl 100 MG Oral Tablet 06/06/2023 Provide r: IGNACIO PEOPLES Diagnosis: Last Documented On 4 10:41AM By Geni Johns ; [facility], [facility] Fluconazole 100 MG Oral Tablet 06/06/2023 Provider: IGNACIO PEOPLES Diagnosis: Last Documented On 4 10:41AM By Geni Johns ; [facility], [facility] Ondansetron 4 MG Oral Tablet Disintegrating 06/06/2023 Provider: IGNACIO PEOPLES Diagnosis: Last Documented On 4 10:41AM By Geni Johns ; [facility], [facility] Albuterol Sulfate (2.5 MG/3M L) 0.083% Inhalation Nebulization solution 05/15/2023 Provider: IGNACIO PEOPLES Diagnosis: Last Documented On 4 10:41AM By Geni Johns ; [facility], [facility] Famotidine 20 MG Oral Tablet 05/12/2023 Provider: IGNACIO PEOPLES Diagnosis: Last Documented On 4 10:41AM By Geni Johns ; [facility], [facility] Nystatin [id number] UNIT/ML Mouth/Throat Suspension 2023 Provider: IGNACIO PEOPLES Diagnosis: Last Documented On 4 10:41AM By Geni Johns ; [facility] Rosuvastatin Calcium 10 MG Oral Tablet 02/23/2023 Pr ovider: Diagnosis: Last Documented On 4 10:41AM By Geni Johns ; [facility] Pregabalin 50 MG Oral Capsule 02/13/2023 Provider: IGNACIO PEOPLES Diagnosis: Last Documented On 4 10:41AM By Geni Johns ; [facility] Amitriptyline HCl 10 MG Oral Tablet 01/10/2023 Provi talat: IGNACIO SHELTON Diagnosis: Last Documented On 3 11:02AM By Geni Johns ; [facility] Prasugrel HCl 10 MG Oral Tablet 01/03/2023 Provider: Diagnosis: Last Documented On 4 10:41AM By Geni Johns ; [facility], [facility] DULoxetine HCl 30 MG Oral Ca psule Delayed Release Particles 11/04/2022 Provider: IGNACIO PEOPLES Diagnosis: Last Documented On 4 10:41AM By Geni Johns ; [facility] Carvedilol 3.125 MG Oral Tablet 09/23/2022 Provider: Diagnosis: Last Documented On 4 10:41AM By Geni Johns ; [facility] Esomeprazole Magnesium 40 MG Oral Capsule Delayed Rele ase 06/24/2022 Provider: Diagnosis: Last Documented On 3 10:19AM By Selina Lucas ; [facility] tiZANidine HCl 2 MG Oral Tablet 06/24/2022 Provider: Diagnosis: Last Documented On 3 10:19AM By Selina Lucas ; [facility], [facility] Medications Administered Includes: Administered Medications from this [...] carpometacarp joint, r hand Nikolai Fagan MD [facility] 06/05/2024 Last Documented On 12:33PM ; [facility], [facility] Medical History Includes: Medical History addressed during [...] Effect daksha Dates 1 - [facility]/ [employer] [id number] Mela Neves Self Clinical Notes Includes: Clinical Notes from this encounter No Clinical Notes Recorded
--- OUTSIDE RECORDS SUMMARY | 2024-08-20 15:49 | XMS_ITS | Clinical Summary ---
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 Includes: Problems addressed during this encounter and other active Problems All Visits Onset Date Resolved Date Provider Condition S tatus Joint Pain Right Thumb 08/23/2023 Karlos de paz PA-C Active Last Documented On 4 10:36AM ; [facility] Lower Back Pain 01/17/2023 Richard Palomo PA-C A ctive Last Documented On 3 2:28PM ; [facility] Joint Pain in the Left Hip 06/14/2022 Richard alves PA-C Active Last Documented On 3 3:30PM ; [facility] Joint Pain in the Right Knee 03/25/2022 Janell Vila PA-C Active Last Documented On 2 12:58PM ; [facility] Plan of Treatment Future Appointments Date Time Location Provi talat Follow Up 09/04/2024 2:00PM [facility] Last Documented On 5 1:57PM ; [facility] Assessments Includes: Assessments from this encounter No Assessments Recorded Medical Equipment - Implanted Devices Includes: Current Devices No Medical Equipment Recorded Medications Includes: Medications discussed during this encounter and other current Medications Current Medications (continue as prescribed) Naproxen 500 MG Oral Tablet 06/24/2023 Provider: IGNACIO PEOPLES Diagnosis: Last Documented On 4 10:41AM By Geni Johns ; [facility] HYDROcodone-Acetaminophen 5-325 MG Oral Tablet 024 Provider: Diagnosis: Last Documented On 4 10:41AM By Geni Johns ; [facility] Repatha SureClick 140 MG/ML Subcutaneous Solution Auto-injector 06/08/2023 Provider: Diagnosis: Last Documented On 4 10:41AM By Geni Johns ; [facility] Pantoprazole Sodium 40 MG Or al Tablet Delayed Release 06/06/2023 Provider: IGNACIO PEOPLES Diagnosis: Last Documented On 4 10:41AM By Geni Johns ; [facility] Sertraline HCl 100 MG Oral Tablet 06/06/2023 Provide r: IGNACIO PEOPLES Diagnosis: Last Documented On 4 10:41AM By Geni Johns ; [facility] Fluconazole 100 MG Oral Tablet 06/06/2023 Provider: IGNACIO PEOPLES Diagnosis: Last Documented On 4 10:41AM By Geni Johns ; [facility] Ondansetron 4 MG Oral Tablet Disintegrating 06/06/2023 Provider: IGNACIO PEOPLES Diagnosis: Last Documented On 4 10:41AM By Geni Johns ; [facility] Albuterol Sulfate (2.5 MG/3M L) 0.083% Inhalation Nebulization solution 05/15/2023 Provider: IGNACIO PEOPLES Diagnosis: Last Documented On 4 10:41AM By Geni Johns ; [facility] Famotidine 20 MG Oral Tablet 05/12/2023 Provider: IGNACIO PEOPLES Diagnosis: Last Documented On 4 10:41AM By Geni Johns ; [facility] Nystatin [id number] UNIT/ML Mouth/Throat Suspension 2023 Provider: IGNACIO PEOPLES Diagnosis: Last Documented On 4 10:41AM By Geni Johns ; [facility] Rosuvastatin Calcium 10 MG Oral Tablet 02/23/2023 Pr ovider: Diagnosis: Last Documented On 4 10:41AM By Geni Johns ; [facility] Pregabalin 50 MG Oral Capsule 02/13/2023 Provider: IGNACIO PEOPLES Diagnosis: Last Documented On 4 10:41AM By Geni Johns ; [facility] Amitriptyline HCl 10 MG Oral Tablet 01/10/2023 Provi talat: IGNACIO SHELTON Diagnosis: Last Documented On 3 11:02AM By Geni Johns ; [facility] Prasugrel HCl 10 MG Oral Tablet 01/03/2023 Provider: Diagnosis: Last Documented On 4 10:41AM By Geni Johns ; [facility] DULoxetine HCl 30 MG Oral Ca psule Delayed Release Particles 11/04/2022 Provider: IGNACIO PEOPLES Diagnosis: Last Documented On 4 10:41AM By Geni Johns ; [facility] Carvedilol 3.125 MG Oral Tablet 09/23/2022 Provider: Diagnosis: Last Documented On 4 10:41AM By Geni Johns ; [facility] Esomeprazole Magnesium 40 MG Oral Capsule Delayed Rele ase 06/24/2022 Provider: Diagnosis: Last Documented On 3 10:19AM By Selina Lucas ; [facility] tiZANidine HCl 2 MG Oral Tablet 06/24/2022 Provider: Diagnosis: Last Documented On 3 10:19AM By Selina Lucas ; [facility] Medications Administered Includes: Administered Medications from [...] carpometacarp joint, r hand Karlos Mayra PA-C [facility] 08/23/2023 Last Documented On 4 3:47PM ; [facility] Medical History Includes: Medical History addressed [...] Effect daksha Dates 1 - [facility]/ [facility] [id number] Mela Neves Self Clinical Notes Includes: Clinical Notes from this encounter No Clinical Notes Recorded
--- OUTSIDE RECORDS SUMMARY | 2024-08-20 15:49 | XMS_ITS ---
Author Organization [facility] , [facility] Address [address] [place] [address] Phone Care Team Providers Care Vp [employer] Name Role Phone IGNACIO PEOPLES Unavailable [phone] Nikunj HA, Joey Vieira Unavailable [phone] Reason for Referral Date Encounter Description Provider Reason for Referral 06/30/23 Follow Up Richard Palomo PA-C Referral To Physician 01/17/23 NEW PROBLEM/EST PT Richard Palomo PA-C Ref erral To Physician 01/16/23 Follow Up Richard Palomo PA-C Referral To Physician 06/24/22 INJECTION Richard Martinez PA-C Refer ral To Physician 06/14/22 NEW PROBLEM/EST PT Richard Palomo PA-C Ref erral To Physician 12/28/21 Follow Up Richard Palomo PA-C Referral To Physician 12/08/21 Specialty Pharmacy H A Injection Janell Vila PA-C Referral To Physician 12/01/21 Specialty Pharmacy H A Injection Janell Vila PA-C Referral To Physician 11/24/21 Specialty Pharmacy H A Injection Janell Vila PA-C Referral To Physician 11/15/21 Physician Specified Janell Vila PA-C Referral To Physician 08/03/21 [facility]YNN Injection Richard Palomo PA-C Referral To Physician - for slightly elevated blood pressure 07/27/21 GLYNN Injection Richard Palomo PA-C Referral To Physician - for slightly elevated blood pressure 04/08/21 Follow Up Joey Calvin MD Referral To Physician - for elevated bp; Referral To Physician - for slightly elevated blood pressure 03/18/21 facet Delta Grimes PA-C R eferral To Physician - for elevated bp; Referral To Physician - for slightly elevated blood pressure 03/04/21 Follow Up Joey Calvin MD Referral To Physician - for elevated bp; Referral To Physician - for slightly elevated blood pressure 01/21/21 Follow Up Joey Calvin MD Referral To Physician - for slightly elevated blood pressure Problems Includes: Active, inactive, and resolved Problems All Visits Onset Date Resolved Date Provider Condition S tatus Joint Pain Right Thumb 08/23/2023 Karlos de paz PA-C Active Last Documented On 4 10:36AM ; [facility], [facility] Lower Back Pain 01/17/2023 Richard Palomo PA-C A ctive Last Documented On 3 2:28PM ; [facility], [facility] Joint Pain in the Left Hip 06/14/2022 Richard alves PA-C Active Last Documented On 3 3:30PM ; [facility] Joint Pain in the Right Knee 03/25/2022 Janell Vila PA-C Active Last Documented On 2 12:58PM ; [facility], [facility] Joint Pain in Both Knees 12/08/2020 Janell davidson PA-C Inactive Last Documented On 2 9:13AM ; [facility], [facility] Lower Back Pain 10/23/2020 11/15/2021 Janell Vila PA-C Resolved Last Documented On 2 9:13AM ; [facility], [facility] Plan of Treatment Pending Tests Order Diagnosis Results Due Ordering P rovider Radiology - Bone Scan Lower Extremity 12/22/20 Joey Calvin MD Last Documented On 1 3:29PM ; [facility], [facility] Radiology - MRI MRI Lumbar Spine 01/22/21 George in Yonatan Szymanski MD Last Documented On 1 1:39PM ; [facility], [facility] Future Appointments Date Time Location Provi talat Follow Up 09/04/2024 2:00PM [facility] Last Documented On 5 1:57PM ; [facility], [facility] Instructions to patient Lose weight Last Documented On 5 1:01PM ; [facility] Intervention and counseling on cessation of tobacco use Last Documented On 4 1:05PM ; [facility] Lose weight Last Documented On 4 1:05PM ; [facility] Intervention and counseling on cessation of tobacco use Last Documented On 4 1:08PM ; [facility] Lose weight Last Documented On 4 1:08PM ; [facility] Intervention and counseling on cessation of tobacco use Last Documented On 4 10:37AM ; [facility] Lose weight Last Documented On 4 10:37AM ; [facility] Intervention and counseling on cessation of tobacco use Last Documented On 4 10:46AM ; [facility] Lose weight Last Documented On 4 10:42AM ; [facility] No intervention and counseli ng on cessation of tobacco use Last Documented On 3 2:29PM ; [facility] Lose weight Last Documented On 3 2:29PM ; [facility] No intervention and counseli ng on cessation of tobacco use Last Documented On 3 10:58AM ; [facility] Lose weight Last Documented On 3 10:58AM ; [facility] Intervention and counseling on cessation of tobacco use Last Documented On 3 1:03PM ; [facility] Lose weight Last Documented On 3 12:58PM ; [facility] Intervention and counseling on cessation of tobacco use Last Documented On 3 10:20AM ; [facility] Lose weight Last Documented On 3 10:08AM ; [facility] No intervention and counseli ng on cessation of tobacco use Last Documented On 3 3:20PM ; [facility] Lose weight Last Documented On 3 3:20PM ; [facility] Lose weight Last Documented On 2 12:58PM ; [facility] No intervention and counseli ng on cessation of tobacco use Last Documented On 2 12:59PM ; [facility] Lose weight Last Documented On 2 12:59PM ; [facility] No intervention and counseli ng on cessation of tobacco use Last Documented On 2 3:06PM ; [facility] Lose weight Last Documented On 2 2:59PM ; [facility] Intervention and counseling on cessation of tobacco use Last Documented On 2 2:56PM ; [facility] Lose weight Last Documented On 2 2:50PM ; [facility] Intervention and counseling on cessation of tobacco use Last Documented On 2 3:03PM ; [facility] Lose weight Last Documented On 2 3:03PM ; [facility] Intervention and counseling on cessation of tobacco use Last Documented On 2 9:25AM ; [facility] Lose weight Last Documented On 2 9:25AM ; [facility] Intervention and counseling on cessation of tobacco use Last Documented On 2 10:00AM ; [facility] Lose weight Last Documented On 2 10:00AM ; [facility] Intervention and counseling on cessation of tobacco use Last Documented On 2 2:01PM ; [facility] Lose weight Last Documented On 2 2:08PM ; [facility] Intervention and counseling on cessation of tobacco use Last Documented On 1 2:20PM ; [facility] Lose weight Last Documented On 1 2:20PM ; [facility] Intervention and counseling on cessation of tobacco use Last Documented On 1 1:54PM ; [facility] Lose weight Last Documented On 1 1:54PM ; [facility] Intervention and counseling on cessation of tobacco use Last Documented On 1 8:04AM ; [facility] Lose weight Last Documented On 1 8:04AM ; [facility] Intervention and counseling on cessation of tobacco use Last Documented On 1 8:13AM ; [facility] Lose weight Last Documented On 1 8:13AM ; [facility] Intervention and counseling on cessation of tobacco use Last Documented On 1 2:06PM ; [facility] Lose weight Last Documented On 1 2:06PM ; [facility] Intervention and counseling on cessation of tobacco use Last Documented On 1 10:06AM ; [facility] Lose weight Last Documented On 1 10:06AM ; [facility] Assessments Includes: Assessments for all patient encounters Findings Encounter Date Overweight NEW PROBLEM/EST PT with Karlos jaime PA-C 06/05/2024 Last Documented On 5 3:40PM ; [facility] Overweight Follow Up with Karlos Nunez PA -C 03/06/2024 Last Documented On 4 4:06PM ; [facility] Overweight Follow Up with Kalros Nunez PA -C 11/29/2023 Last Documented On 4 1:34PM ; [facility], [facility] Overweight Physician Specified with Karlos Nunez PA-C 08/23/2023 Last Documented On 4 11:23AM ; [facility], [facility] No diagnosis of underweight NEW PROBLEM/EST PT w ith Richard Palomo PA-C 01/17/2023 Last Documented On 3 3:10PM ; [facility] Overweight NEW PROBLEM/EST PT with Richard Palomo PA-C 01/17/2023 Last Documented On 3 3:10PM ; [facility] No diagnosis of underweight Follow Up with Vamshi Palomo PA-C 01/16/2023 Last Documented On 3 11:40AM ; [facility] Overweight Follow Up with Richard Palomo PA- C 01/16/2023 Last Documented On 3 11:40AM ; [facility], [facility] No diagnosis of underweight INJECTION with Vamshi Martinez PA-C 06/24/2022 Last Documented On 3 8:21AM ; [facility], [facility] No diagnosis of underweight NEW PROBLEM/EST PT w mert Richard Palomo PA-C 06/14/2022 Last Documented On 3 4:53PM ; [facility] No diagnosis of underweight INJECTION with Janell Vila PA-C 03/25/2022 Last Documented On 2 1:59PM ; [facility], [facility] No diagnosis of underweight Follow Up with Vamshi Palomo PA-C 12/28/2021 Last Documented On 2 12:12PM ; [facility], [facility] No diagnosis of underweight Specialty Ph armacy GLYNN Injection with Janellgiana Vila PA-C 12/08/2021 Last Documented On 2 3:11PM ; [facility] No diagnosis of underweight Specialty Ph armacy GLYNN Injection with Janell Vila PA-C 12/01/2021 Last Documented On 2 3:02PM ; [facility] No diagnosis of underweight Specialty Ph armacy GLYNN Injection with Janellgiana Vila PA-C 11/24/2021 Last Documented On 2 3:37PM ; [facility], [facility] No diagnosis of underweight Physician Specified with Janell Vila PA-C 11/15/2021 Last Documented On 2 10:11AM ; [facility], [facility] Instructions Includes: Instructions for all patient encounters Instructions to patient Lose weight Last Documented On 5 1:01PM ; [facility] Intervention and counseling on cessation of tobacco use Last Documented On 4 1:05PM ; [facility] Lose weight Last Documented On 4 1:05PM ; [facility] Intervention and counseling on cessation of tobacco use Last Documented On 4 1:08PM ; [facility] Lose weight Last Documented On 4 1:08PM ; [facility] Intervention and counseling on cessation of tobacco use Last Documented On 4 10:37AM ; [facility] Lose weight Last Documented On 4 10:37AM ; [facility] Intervention and counseling on cessation of tobacco use Last Documented On 4 10:46AM ; [facility] Lose weight Last Documented On 4 10:42AM ; [facility] No intervention and counseli ng on cessation of tobacco use Last Documented On 3 2:29PM ; [facility] Lose weight Last Documented On 3 2:29PM ; [facility] No intervention and counseli ng on cessation of tobacco use Last Documented On 3 10:58AM ; [facility] Lose weight Last Documented On 3 10:58AM ; [facility] Intervention and counseling on cessation of tobacco use Last Documented On 3 1:03PM ; [facility] Lose weight Last Documented On 3 12:58PM ; [facility] Intervention and counseling on cessation of tobacco use Last Documented On 3 10:20AM ; [facility] Lose weight Last Documented On 3 10:08AM ; [facility] No intervention and counseli ng on cessation of tobacco use Last Documented On 3 3:20PM ; [facility] Lose weight Last Documented On 3 3:20PM ; [facility] Lose weight Last Documented On 2 12:58PM ; [facility] No intervention and counseli ng on cessation of tobacco use Last Documented On 2 12:59PM ; [facility] Lose weight Last Documented On 2 12:59PM ; [facility] No intervention and counseli ng on cessation of tobacco use Last Documented On 2 3:06PM ; [facility] Lose weight Last Documented On 2 2:59PM ; [facility] Intervention and counseling on cessation of tobacco use Last Documented On 2 2:56PM ; [facility] Lose weight Last Documented On 2 2:50PM ; [facility] Intervention and counseling on cessation of tobacco use Last Documented On 2 3:03PM ; [facility] Lose weight Last Documented On 2 3:03PM ; [facility] Intervention and counseling on cessation of tobacco use Last Documented On 2 9:25AM ; [facility] Lose weight Last Documented On 2 9:25AM ; [facility] Intervention and counseling on cessation of tobacco use Last Documented On 2 10:00AM ; [facility] Lose weight Last Documented On 2 10:00AM ; [facility] Intervention and counseling on cessation of tobacco use Last Documented On 2 2:01PM ; [facility] Lose weight Last Documented On 2 2:08PM ; [facility] Intervention and counseling on cessation of tobacco use Last Documented On 1 2:20PM ; [facility] Lose weight Last Documented On 1 2:20PM ; [facility] Intervention and counseling on cessation of tobacco use Last Documented On 1 1:54PM ; [facility] Lose weight Last Documented On 1 1:54PM ; [facility] Intervention and counseling on cessation of tobacco use Last Documented On 1 8:04AM ; [facility] Lose weight Last Documented On 1 8:04AM ; [facility] Intervention and counseling on cessation of tobacco use Last Documented On 1 8:13AM ; [facility] Lose weight Last Documented On 1 8:13AM ; [facility] Intervention and counseling on cessation of tobacco use Last Documented On 1 2:06PM ; [facility] Lose weight Last Documented On 1 2:06PM ; [facility] Intervention and counseling on cessation of tobacco use Last Documented On 1 10:06AM ; [facility] Lose weight Last Documented On 1 10:06AM ; [facility] Medical Equipment - Implanted Devices Includes: Current and historical Devices No Medical Equipment Recorded Medications Includes: Current and historical Medications Current Medications (continue as prescribed) Naproxen 500 MG Oral Tablet 06/24/2023 Provider: IGNACIO PEOPLES Diagnosis: Last Documented On 4 10:41AM By Geni Johns ; [facility] HYDROcodone-Acetaminophen 5-325 MG Oral Tablet 024 Provider: Diagnosis: Last Documented On 4 10:41AM By Geni Johns ; [facility] Repatha SureClick 140 MG/ML Subcutaneous Solution Auto-injector 06/08/2023 Provider: Diagnosis: Last Documented On 4 10:41AM By Geni Johns ; [facility] Pantoprazole Sodium 40 MG Or al Tablet Delayed Release 06/06/2023 Provider: IGNACIO PEOPLES Diagnosis: Last Documented On 4 10:41AM By Geni Johns ; [facility] Sertraline HCl 100 MG Oral Tablet 06/06/2023 Provide r: IGNACIO PEOPLES Diagnosis: Last Documented On 4 10:41AM By Geni Johns ; [facility] Fluconazole 100 MG Oral Tablet 06/06/2023 Provider: IGNACIO PEOPLES Diagnosis: Last Documented On 4 10:41AM By Geni Johns ; [facility] Ondansetron 4 MG Oral Tablet Disintegrating 06/06/2023 Provider: IGNACIO PEOPLES Diagnosis: Last Documented On 4 10:41AM By Geni Johns ; [facility] Albuterol Sulfate (2.5 MG/3M L) 0.083% Inhalation Nebulization solution 05/15/2023 Provider: IGNACIO PEOPLES Diagnosis: Last Documented On 4 10:41AM By Geni Johns ; [facility] Famotidine 20 MG Oral Tablet 05/12/2023 Provider: IGNACIO PEOPLES Diagnosis: Last Documented On 4 10:41AM By Geni Johns ; [facility] Nystatin 190650 UNIT/ML Mouth/Throat Suspension 2023 Provider: IGNACIO PEOPLES Diagnosis: Last Documented On 4 10:41AM By Geni Johns ; [facility] Rosuvastatin Calcium 10 MG Oral Tablet 02/23/2023 Pr ovider: Diagnosis: Last Documented On 4 10:41AM By Geni Johns ; [facility] Pregabalin 50 MG Oral Capsule 02/13/2023 Provider: IGNACIO PEOPLES Diagnosis: Last Documented On 4 10:41AM By Geni Johns ; [facility] Amitriptyline HCl 10 MG Oral Tablet 01/10/2023 Provi talat: IGNACIO PEOPLES Diagnosis: Last Documented On 3 11:02AM By Geni Johns ; [facility] Prasugrel HCl 10 MG Oral Tablet 01/03/2023 Provider: Diagnosis: Last Documented On 4 10:41AM By Geni Johns ; [facility] DULoxetine HCl 30 MG Oral Ca psule Delayed Release Particles 11/04/2022 Provider: IGNACIO PEOPLES Diagnosis: Last Documented On 4 10:41AM By Geni Johns ; [facility] Carvedilol 3.125 MG Oral Tablet 09/23/2022 Provider: Diagnosis: Last Documented On 4 10:41AM By Geni Johns ; [facility] Esomeprazole Magnesium 40 MG Oral Capsule Delayed Rele ase 06/24/2022 Provider: Diagnosis: Last Documented On 3 10:19AM By Selina Lucas ; [facility] tiZANidine HCl 2 MG Oral Tablet 06/24/2022 Provider: Diagnosis: Last Documented On 3 10:19AM By Selina Lucas ; [facility] Past Medications on file Meloxicam 15 MG Oral Tablet 06/30/2023 - 07/30/2023 Pr ovider: Richard Palomo PA-C Diagnosis: Take t tablet by mouth once a day Last Documented On 4 11:20AM By Geni Johns ; [facility] Famotidine 20 MG Oral Tablet 01/10/2023 - 06/30/2023 P rovider: IGNACIO PEOPLES Diagnosis: Last Documented On 4 10:43AM By Geni Johns ; [facility] Rosuvastatin Calcium 5 MG Oral Tablet 01/06/2023 - Provider: Diagnosis: Last Documented On 4 10:42AM By Geni Johns ; [facility] Prasugrel HCl 10 MG Oral Tablet 01/03/2023 - Provider: Diagnosis: Last Documented On 4 10:42AM By Geni Johns ; [facility] Naproxen 250 MG Oral Tablet 12/23/2022 - 06/30/2023 Pr ovider: Diagnosis: Last Documented On 4 10:43AM By Geni Johns ; [facility] Effient 5 MG Oral Tablet 06/24/2022 - 01/16/2023 Provi talat: Diagnosis: Last Documented On 3 11:03AM By Geni Johns ; [facility] Aspirin 325 MG Oral Tablet 06/24/2022 - 01/16/2023 Pro vider: Diagnosis: Last Documented On 3 11:03AM By Geni Johns ; [facility] Repatha SureClick 140 MG/ML Subcutaneous Solution Auto-injector 06/24/2022 - 01/16/2023 Provider: Diagnosis: Last Documented On 3 11:04AM By Geni Johns ; [facility] Rosuvastatin Calcium 5 MG Oral Tablet 11/15/2021 - Provider: Diagnosis: Last Documented On 3 10:19AM By Selina Lucas ; [facility] Esomeprazole Magnesium 40 MG Oral Capsule Delayed Release 11/15/2021 - 06/24/2022 Provider: Diagnosis: Last Documented On 3 10:19AM By Selina Lucas ; [facility] DULoxetine HCl 20 MG Oral Ca psule Delayed Release Sprinkle 11/15/2021 - 06/24/2022 Provider: Diagnosis: Last Documented On 3 10:19AM By Selina Lucas ; [facility] Bisoprolol Fumarate 5 MG Oral Tablet 11/15/2021 - 06/08 Provider: Diagnosis: Last Documented On 3 10:18AM By Selina Lucas ; [facility] tiZANidine HCl 2 MG Oral Tablet 11/15/2021 - Provider: Diagnosis: Last Documented On 3 10:19AM By Selina Lucas ; [facility] Aspirin 325 MG Oral Tablet 11/15/2021 - 06/24/2022 Pro vider: Diagnosis: Last Documented On 3 10:18AM By Selina Lucas ; [facility] CeleBREX 200 MG Oral Capsule 03/04/2021 - 11/24/2021 Mickey bustillo: Joey Calvin MD Diagnosis: once a day Last Documented On 2 3:02PM By Jason Santana ; [facility] Esomeprazole Magnesium 40 MG Oral Capsule Delayed Release 10/10/2020 - 11/15/2021 Provider: IGNACIO HUBER Diagnosis: Last Documented On 2 9:13AM By Jason Santana ; [facility] Triamterene-HCTZ 37.5-25 MG Oral Tablet 10/09/2020 - 11/15/2021 Provider: IGNACIO PEOPLES Diagnosis: Last Documented On 2 9:13AM By Jason Santana ; [facility] Gabapentin 800 MG Oral Tablet 10/08/2020 - 11/15/2021 Provider: IGNACIO PEOPLES Diagnosis: Last Documented On 2 9:13AM By Jason Santana ; [facility], [facility] traMADol HCl 50 MG Oral Tablet 09/17/2020 - 11/15/2021 Provider: IGNACIO PEOPLES Diagnosis: Last Documented On 2 9:13AM By Jason Santana ; [facility], [facility] Sertraline HCl 50 MG Oral Tablet 09/02/2020 - 11/16/19 Provider: IGNACIO PEOPLES Diagnosis: Last Documented On 2 9:13AM By Jason Santana ; [facility] Medications Administered Includes: Administered Medications in patient's chart No Administered Medications Recorded Vital Signs Includes: Vital Signs from 08/21/2023 through 08/20/2024 Vital Name 06/05/2024 01:02P 03/06/2024 01:06P 08/22 10:38A Height (in) 67 67 67 Weight (lb) 257 257 257 Body Mass Index 40.3 40.3 40.3 Body Surface Area 2.2 2.2 2.2 Note: mg KL KL Last Documented: On 06/05/2024 1:02PM ; [facility] On 03/06/2024 1:06PM ; [facility] On 08/23/2023 10:39AM ; [facility] Results Includes: Results from 08/21/2023 through 08/20/2024 No Results Recorded For Specified Dates History of Present Illness History of Present Illness not supported for this document type No History of Present Illness Recorded Social History Description Last Updated Tobacco use 06/24/2022 Last Documented On 3 8:21AM ; [facility] Tobacco non-user 03/25/2022 Last Documented On 2 1:59PM ; [facility] Exercising regularly 03/25/2022 Last Documented On 2 1:59PM ; [facility] No recent change in diet 03/25/2022 Last Documented On 2 1:59PM ; [facility] Not a smoker 03/25/2022 Last Documented On 2 1:59PM ; [facility] Not using alcohol 03/25/2022 Last Documented On 2 1:59PM ; [facility] Not using drugs 03/25/2022 Last Documented On 2 1:59PM ; [facility] Non-smoker 12/08/2021 Last Documented On 2 3:11PM ; [facility] Caffeine use 11/15/2021 Last Documented On 2 10:11AM ; [facility] Yes, current smoker. 11/15/2021 Last Documented On 2 10:11AM ; [facility], [facility] Never drank alcohol 11/15/2021 Last Documented On 2 10:11AM ; [facility], [facility] Never used drugs 11/15/2021 Last Documented On 2 10:11AM ; [facility], [facility] No recent change in diet 12/08/2020 Last Documented On 1 3:29PM ; [facility] Yes, current smoker. 12/08/2020 Last Documented On 1 3:29PM ; [facility] Smoking Status Unknown Procedures and Surgical History Includes: Procedures from 08/21/2023 through 08/20/2024 Procedures Code Diagnosis Performing Provider Service Location Service Date COCK-UP WRIST SPLINT WITH OR W/O THUMB (RIGHT) [id number] Unil primary osteoarth of first carpometacarp joint, r hand Nikolai Fagan MD [facility] 06/05/2024 Last Documented On 5 12:33PM ; [facility] Injection, betamethasone acetate 6mg per cc and betamethason J0702 Unil primary osteoarth of first carpometacarp joint, r hand Nikolai Fagan MD [facility] 06/05/2024 Last Documented On 5 12:32PM ; [facility] DRAIN/INJECT, JOINT/BURSA (RIGHT) Unil primary osteoarth of first carpometacarp joint, r hand Nikolai Fagan MD [facility] 06/05/2024 Last Documented On 5 12:32PM ; [facility], [facility] Injection, betamethasone acetate 6mg per cc and betamethason J0702 Unil primary osteoarth of first carpometacarp joint, r hand Karlos Nunez PA-C [facility] 11/29/2023 Last Documented On 4 7:29AM ; [facility] DRAIN/INJECT, JOINT/BURSA (RIGHT) Unil primary osteoarth of first carpometacarp joint, r hand Karlos Nunez PA-C [facility] 11/29/2023 Last Documented On 4 7:29AM ; [facility] X-RAY EXAM OF FINGER(S) 2-3 VIEWS (RIGHT) 01131 Unil primary osteoarth of first carpometacarp joint, r hand Nikolai Fagan MD [facility] 08/23/2023 Last Documented On 4 3:46PM ; [facility], [facility] Injection, betamethasone acetate 6mg per cc and betamethason J0702 Unil primary osteoarth of first carpometacarp joint, r hand Nikolai Fagan MD [facility] 08/23/2023 Last Documented On 4 3:46PM ; [facility] DRAIN/INJECT, JOINT/BURSA (RIGHT) 10104 Unil primary osteoarth of first carpometacarp joint, r hand Nikolai Fagan MD [facility] 08/23/2023 Last Documented On 4 3:46PM ; [facility] CMC Comfort Cool Splint A4466 Unil primary osteoarth of first carpometacarp joint, r hand Karlos Nunez PA-C [facility] 08/23/2023 Last Documented On 4 3:47PM ; [facility] Surgical History Last Updated History of History of Gallbladder 2021 Last Documented On 2 10:11AM ; [facility] History of shoulder arthroplasty 022 Last Documented On 2 10:11AM ; [facility] History of total knee arthroplasty 11/15 Last Documented On 2 10:11AM ; [facility] History of Past Surgical History: 2021 Last Documented On 2 10:11AM ; [facility] Medical History Includes: Medical History in patient's chart Description Last Updated No recent immunization for flu 2 Last Documented On 2 1:59PM ; [facility], [facility] No recent immunization for pneumococcal pneumonia 03/25/2022 Last Documented On 2 1:59PM ; [facility], [facility] History of arthritis 11/15/2021 Last Documented On 2 10:11AM ; [facility] History of asthma 11/15/2021 Last Documented On 2 10:11AM ; [facility] History of depression 11/15/2021 Last Documented On 2 10:11AM ; [facility] History of heart disease 11/15/2021 Last Documented On 2 10:11AM ; [facility] History of History of Blood Clots 2021 Last Documented On 2 10:11AM ; [facility] History of History of Heart Attack / Str giselle 11/15/2021 Last Documented On 2 10:11AM ; [facility] History of osteoporosis 11/15/2021 Last Documented On 2 10:11AM ; [facility] Arthritis 11/15/2021 Last Documented On 2 10:11AM ; [facility] Asthma 11/15/2021 Last Documented On 2 10:11AM ; [facility] Depression 11/15/2021 Last Documented On 2 10:11AM ; [facility] Heart disease 11/15/2021 Last Documented On 2 10:11AM ; [facility] Heartburn / Acid Reflux 11/15/2021 Last Documented On 2 10:11AM ; [facility] History of Blood Clots 11/15/2021 Last Documented On 2 10:11AM ; [facility] History of Gallbladder 11/15/2021 Last Documented On 2 10:11AM ; [facility] History of Heart Attack / Stroke 022 Last Documented On 2 10:11AM ; [facility] Osteoporosis 11/15/2021 Last Documented On 2 10:11AM ; [facility] Shoulder arthroplasty 11/15/2021 Last Documented On 2 10:11AM ; [facility] Total knee arthroplasty 11/15/2021 Last Documented On 2 10:11AM ; [facility] Family History Includes: Family History in patient's chart Description Last Updated Family history of cancer 11/15/2021 Last Documented On 2 10:11AM ; [facility] Family history of heart disease 11/16/19 22 Last Documented On 2 10:11AM ; [facility] Family history of rheumatoid arthritis 0 11/15/2021 Last Documented On 2 10:11AM ; [facility] Maternal grandfather's history of family history of heart disease 11/15/2021 Last Documented On 2 10:11AM ; [facility] Maternal grandmother's history of family history of heart disease 11/15/2021 Last Documented On 2 10:11AM ; [facility] Maternal grandmother's history of rheuma toid arthritis 11/15/2021 Last Documented On 2 10:11AM ; [facility] Maternal history of family history of ca ncer 11/15/2021 Last Documented On 2 10:11AM ; [facility], [facility] Maternal history of family history of he art disease 11/15/2021 Last Documented On 2 10:11AM ; [facility] Paternal grandfather's history of family history of heart disease 11/15/2021 Last Documented On 2 10:11AM ; [facility] Diabetes mellitus 12/08/2020 Last Documented On 1 3:29PM ; [facility] Review of Systems Review of Systems not supported for this document type No Review of Systems Recorded Mental Status No Mental Status Recorded Functional Status No Functional Status Recorded Physical Exam Physical Exam not supported for this document type No Physical Exam Recorded Immunizations Includes: Immunizations in patient's chart Vaccine Dose # Date Site Reaction(s) Status Source Influenza 1 11/15/2021 Complete (Refused - Patient objection) [facility] Last Documented On 2 12:35PM ; [facility] PCV (Pneumovax 23) 1 11/15/2021 Complete (Refused - Patient objection) [facility], [facility] Last Documented On 2 12:35PM ; [facility] T[facility] 1 11/15/2021 Complete (Refused - Patient objection) [facility], [facility] Last Documented On 2 12:35PM ; [facility], [facility] Allergies Includes: Active, inactive, and resolved Allergies No Known Allergies Encounters Includes: Encounters from 08/21/2023 through 08/20/2024 Encounter Provider Location Date Check-In Time Check-Out Time Diagnosis BR[employer]TING Karlos Nunez PA-C [facility] 06/05/19 25 1:55PM 11:59PM NEW PROBLEM/EST PT Karlos Nunez PA-C [facility] 06/05/19 25 1:00PM 1:44PM Overweight Follow Up Karlos Nunez PA-C [facility] 03/06/20 24 12:58PM 1:18PM Overweight Follow Up Karlos Nunez PA-C [facility] 11/29/19 24 1:00PM 1:44PM Overweight [employer] Karlos Nunez PA-C [facility] 08/23/19 24 11:24AM 11:59PM Physician Specified Karlos Nunez PA-C [facility] 08/23/19 24 10:23AM 11:31AM Overweight Insurance Includes: Active Insurance Policies Plan Name Member ID Group # Subscriber Relationship Effect [id number] Dates 1 - [facility] [id number] Mela Neves Self Clinical Notes Includes: Signed Clinical Notes starting from 04/21/2022 * Progress note Date Encounter Last Documented by 06/05/2024 NEW PROBLEM/EST PT Last document ed on 06/05/2024; 3:40 PM, Karlos Nunez PA-C; [facility] Active Problems & Conditions - Joint Pain in the Left Hip - Joint Pain in the Right Knee - Joint Pain Right Thumb - Lower Back Pain Chief Complaint The Chief Complaint is: Lt elbow pain. Referred Here Referred by Ignacio Peoples, PAYAM. History of Present Illness Mela Neves [...] Tablet 30 days, 0 refills - Nystatin 369529 UNIT/ML Mouth/Throat Suspension 14 days, 0 refills [...] of medications documented. Care Team - [facility] Reminders - Assess BMI satisfied 06/05/2024. - Assess Tobacco Use satisfied 06/05/2024. - Follow Up Plan BMI Management satisfied 06/05/2024. * Progress note Date Encounter Last Documented by 03/06/2024 Follow Up Last documented on 03/06/2024; 4:06 PM, Karlos Mcneil; [facility], [facility] Active Problems & Conditions - Joint Pain in the Left Hip - Joint Pain in the Right Knee - Joint Pain Right Thumb - Lower Back Pain Chief Complaint The Chief Complaint is: Right thumb and hand pain. Referred Here Referred by Ignacio Peoples, PCP. History of Present Illness Mela Neves [...] Tablet 30 days, 0 refills - Nystatin [id number] UNIT/ML Mouth/Throat Suspension 14 days, 0 refills [...] of medications documented. Care Team - [facility] Remind[facility] - Assess BMI satisfied 03/06/2024. - Assess Tobacco Use satisfied 03/06/2024. - Follow Up Plan BMI Management satisfied 03/06/2024. - Smoking & Tobacco Cessation Intervention and Counseling satisfied 03/06/2024. * Progress note Date Encounter Last Documented by 11/29/2023 Follow Up Last documented on 11/29/2023; 1:34 PM, Karlos Mcneil; [facility], [facility] Active Problems & Conditions - Joint Pain in the Left Hip - Joint Pain in the Right Knee - Joint Pain Right Thumb - Lower Back Pain Chief Complaint The Chief Complaint is: Right thumb and hand pain. Referred Here Referred by Ignacio Peoples, PCP. History of Present Illness Mela Neves [...] Tablet 30 days, 0 refills - Nystatin [id number] UNIT/ML Mouth/Throat Suspension 14 days, 0 refills [...] of medications documented. Care Team - [facility] Rem[facility] - Assess Tobacco Use satisfied 06/24/2022. - Smoking & Tobacco Cessation Intervention and Counseling satisfied 11/29/2023. * Progress note Date Encounter Last Documented by 08/23/2023 Physician Specified Last melida pollock on 08/23/2023; 11:23 AM, Karlos Nunez PA-C; [facility], [facility] Active Problems & Conditions - Joint Pain in the Left Hip - Joint Pain in the Right Knee - Joint Pain Right Thumb - Lower Back Pain Chief Complaint The Chief Complaint is: Right thumb and hand pain. Referred Here Referred by Ignacio Peoples, PCP. History of Present Illness Mela Neves is a 57 year old female. - Symptoms GRINDING. - Allergy list reviewed - Problem list reviewed - Medication list reviewed - Previous history of new onset pain Injury is not work related or an automotive accident - Patient pain level from 1-10: 7 BETTER WITH REST WORSE WITH ACTIVITIES - No previous treatment. 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 She saw Dr. Fagan almost a year ago. She received a steroid injection at that time. She states that it did provide some significant relief but the benefits is now wear off. She has also been using a comfort cool brace which she states is now in poor condition. She describes pain in the base of her right thumb in which is worse with gripping and pinching activities. Denies any numbness tingling in the hand. No new acute injury. Current Medication - Albuterol Sulfate (2.5 MG/3ML) [...] Tablet 30 days, 0 refills - Nystatin [id number] UNIT/ML Mouth/Throat Suspension 14 days, 0 refills [...] Gastrointestinal: No heartburn and no abdominal pain. Indigestion and Acid Reflux. No Peptic Ulcer, no GI Stomach Bleed, and no Ulcers. Endocrine: Hot flashes. No muscle weakness, no [...] allergic reaction. Physical Findings - Vitals taken 08/23/2023 10:38 am KL Height 67 in Weight 257 lbs [...] negative There is no triggering of digits Mild swelling over the CMC CMC is tender to palpation. CMC grind is positive for pain and crepitus No compensatory hyperextension of the MCP Able to oppose base of small finger, with pain There is no tenderness to palpation over the dorsal compartments. Finklesteins is negative User Defined 5 Three-view x-ray of the right thumb shows severe CMC arthrosis. No acute bony abnormality. 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 I had a long conversation with the patient about her problem today. This included nonoperative and operative management. It has been 1 year since her last injection. Recommend a repeat CMC injection today. We will provide her with another comfort cool brace as her old brace is in poor condition. She will follow-up in 3 months. The risks and benefits [...] on cessation of tobacco use. Counseling/Education - Lose weight Notes Transcribed by Jorden Rodriguez, acting as a scribe for Dr. Fagan. This dictation was done with voice recognition software and may contain errors and omissions. Practice Management Use of tobacco assessment performed Review of medications documented. Care Team - [facility] Reminders - Assess BMI satisfied 08/23/2023. - Assess Tobacco Use satisfied 08/23/2023. - Follow Up Plan BMI Management satisfied 08/23/2023. - Smoking & Tobacco Cessation Intervention and Counseling satisfied 08/23/2023.
== END 2024-08-19 23:59 | disposition home or self-care (01) ==
LOC: LAB.DROPOF 08-20 15:46
PROVIDERS: PCP Nurse Practitioner Family; Visit Provider Nurse Practitioner Family
DX: I11.0 Hypertensive heart disease with heart failure (principal); E78.5 Hyperlipidemia, unspecified; N28.9 Disorder of kidney and ureter, unspecified; I50.9 Heart failure, unspecified; E66.01 Morbid (severe) obesity due to excess calories; Z68.41 Body mass index [BMI] 40.0-44.9, adult; R53.83 Other fatigue; Z13.1 Encounter for screening for diabetes mellitus
CPT/HCPCS: 80053; 82306; 82607; 82728; 83036; 83735; 84443; 85025; 86140

== ENCOUNTER 2024-08-29 14:09 | Outpatient (CLI) | payer MEDICARE, SELFPAY ==
--- NOTE | 2024-08-29 14:12 | XR_ITS ---
FINAL REPORT CLINICAL HISTORY: Right knee pain, chronic COMPARISON: 07/20/2021 FINDINGS: AP, lateral and oblique views of the right knee were obtained. There is no acute fracture or dislocation. There are tricompartmental degenerative changes, most pronounced at the patellofemoral compartment. These have progressed since the prior exam. There is no joint effusion or other acute soft tissue abnormality. IMPRESSION: Progressive tricompartmental degenerative changes, most pronounced at the patellofemoral compartment. No acute osseous abnormality. Reviewed, Interpreted and Dictated by Blanquita Charlton MD Transcribed by Elvira Vincent Authenticated and [facility]
--- OUTSIDE RECORDS SUMMARY | 2024-08-29 14:12 | XMS_ITS | Clinical Summary ---
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 Name Role Phone IGNACIO HARTMAN Unavailable [phone] Nikunj HA, Joey Vieira Unavailable [phone] Reason for Visit and Chief Complaint The Chief Complaint is: Right thumb and hand pain Problems Includes: Problems addressed during this encounter and other active Problems Current Visit Onset Date Resolved Date Provider Conditio n Status Lower Back Pain 01/17/2023 Richard Palomo PA-C A ctive Last Documented On 3 2:28PM ; [facility] Lower Back Pain 10/23/2020 11/15/2021 Janell Vila PA-C Resolved Last Documented On 2 9:13AM ; [facility] Past Visits Onset Date Resolved Date Provider Condition Status Joint Pain Right Thumb 08/23/2023 Karlos de paz PA-C Active Last Documented On 4 10:36AM ; [facility] Joint Pain in the Left Hip 06/14/2022 Richard alves PA-C Active Last Documented On 3 3:30PM ; [facility] Joint Pain in the Right Knee 03/25/2022 Janell Vila PA-C Active Last Documented On 2 12:58PM ; [facility] Plan of Treatment Future Appointments Date Time Location Provi talat Follow Up 09/04/2024 2:00PM [facility] Last Documented On 5 1:57PM ; [facility] Instructions to patient Intervention and counseling on cessation of tobacco use Last Documented On 4 1:05PM ; [facility] Lose weight Last Documented On 4 1:05PM ; [facility] Assessments Includes: Assessments from this encounter Findings - Overweight - Last Documented On 03/06/2024 4:06PM ; [facility] 58-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 [...] - Last Documented On 03/06/2024 4:06PM ; [facility] Instructions Includes: Instructions from this encounter Instructions to patient Intervention and counseling on cessation of tobacco use Last Documented On 4 1:05PM ; [facility] Lose weight Last Documented On 4 1:05PM ; [facility] Medical Equipment - Implanted Devices Includes: Current Devices No Medical Equipment Recorded Medications Includes: Medications discussed during this encounter and other current Medications Current Medications (continue as prescribed) Naproxen 500 MG Oral Tablet 06/24/2023 Provider: IGNACIO HARTMAN Diagnosis: Last Documented On 4 10:41AM By Geni Johns ; [facility] HYDROcodone-Acetaminophen 5-325 MG Oral Tablet 024 Provider: Diagnosis: Last Documented On 4 10:41AM By Geni Johns ; [facility] Repatha SureClick 140 MG/ML Subcutaneous Solution Auto-injector 06/08/2023 Provider: Diagnosis: Last Documented On 4 10:41AM By Geni Johns ; [facility] Pantoprazole Sodium 40 MG Or al Tablet Delayed Release 06/06/2023 Provider: IGNACIO HARTMAN Diagnosis: Last Documented On 4 10:41AM By Geni Johns ; [facility] Sertraline HCl 100 MG Oral Tablet 06/06/2023 Provide r: IGNACIO HARTMAN Diagnosis: Last Documented On 4 10:41AM By Geni Johns ; [facility] Fluconazole 100 MG Oral Tablet 06/06/2023 Provider: IGNACIO HARTMAN Diagnosis: Last Documented On 4 10:41AM By Geni Johns ; [facility] Ondansetron 4 MG Oral Tablet Disintegrating 06/06/2023 Provider: IGNACIO HARTMAN Diagnosis: Last Documented On 4 10:41AM By Geni Johns ; [facility] Albuterol Sulfate (2.5 MG/3M L) 0.083% Inhalation Nebulization solution 05/15/2023 Provider: IGNACIO HARTMAN Diagnosis: Last Documented On 4 10:41AM By Geni Johns ; [facility] Famotidine 20 MG Oral Tablet 05/12/2023 Provider: IGNACIO HARTMAN Diagnosis: Last Documented On 4 10:41AM By Geni Johns ; [facility] Nystatin 053898 UNIT/ML Mouth/Throat Suspension 2023 Provider: IGNACIO HARTMAN Diagnosis: Last Documented On 4 10:41AM By Geni Johns ; [facility] Rosuvastatin Calcium 10 MG Oral Tablet 02/23/2023 Pr ovider: Diagnosis: Last Documented On 4 10:41AM By Geni Johns ; [facility] Pregabalin 50 MG Oral Capsule 02/13/2023 Provider: IGNACIO HARTMAN Diagnosis: Last Documented On 4 10:41AM By Geni Johns ; [facility] Amitriptyline HCl 10 MG Oral Tablet 01/10/2023 Provi talat: IGNACIO SPEARNER Diagnosis: Last Documented On 3 11:02AM By Geni Johns ; [facility] Prasugrel HCl 10 MG Oral Tablet 01/03/2023 Provider: Diagnosis: Last Documented On 4 10:41AM By Geni Johns ; [facility] DULoxetine HCl 30 MG Oral Ca psule Delayed Release Particles 11/04/2022 Provider: IGNACIO HARTMAN Diagnosis: Last Documented On 4 10:41AM By Geni Johns ; [facility] Carvedilol 3.125 MG Oral Tablet 09/23/2022 Provider: Diagnosis: Last Documented On 4 10:41AM By Geni Johns ; [facility] Esomeprazole Magnesium 40 MG Oral Capsule Delayed Rele ase 06/24/2022 Provider: Diagnosis: Last Documented On 3 10:19AM By Selina Lucas ; [facility] tiZANidine HCl 2 MG Oral Tablet 06/24/2022 Provider: Diagnosis: Last Documented On 3 10:19AM By Selina Lucas ; [facility] Past Medications on file Meloxicam 15 MG Oral Tablet 06/30/2023 - 07/30/2023 Pr ovider: Richard Palomo PA-C Diagnosis: Take t tablet by mouth once a day Last Documented On 4 11:20AM By Geni Johns ; [facility] Medications Administered Includes: Administered Medications from this encounter No Administered Medications Recorded Vital Signs Includes: Vital Signs from this encounter Vital Name 03/06/2024 01:06P Height (in) 67 Weight (lb) 257 Body Mass Index 40.3 Body Surface Area 2.2 Note: KL Last Documented: On 03/06/2024 1:06PM ; [facility] Results Includes: Results discussed during this encounter [...] 12/08/2020 Last Documented On 4 1:05PM ; [facility] Smoking Status Unknown Procedures and Surgical History Includes: Procedures from this encounter Procedures Code Diagnosis Performing Provider Service L ocation Service Date intervention and counseling on cessation of tobacco use 4000F Last Documented On 4 1:05PM ; [facility] use of tobacco assessment performed 1000F Last Documented On 4 1:05PM ; [facility] review of medications documented 1160F Last Documented On 4 1:05PM ; [facility] an X-ray was performed 09226 Last Documented On 4 1:05PM ; [facility] brace Last Documented On 4 1:05PM ; [facility] Surgical History Last Updated History of History of Gallbladder 2021 Last Documented On 4 1:05PM ; [facility] History of shoulder arthroplasty 022 Last Documented On 4 1:05PM ; [facility] History of total knee arthroplasty 11/15 Last Documented On 4 1:05PM ; [facility] History of Past Surgical History: 2021 Last Documented On 4 1:05PM ; [facility] Medical History Includes: Medical History addressed during this encounter Description Last Updated No recent immunization for flu 2 Last Documented On 4 1:05PM ; [facility] No recent immunization for pneumococcal pneumonia 03/25/2022 Last Documented On 4 1:05PM ; [facility] History of arthritis 11/15/2021 Last Documented On 4 1:05PM ; [facility] History of asthma 11/15/2021 Last Documented On 4 1:05PM ; [facility] History of depression 11/15/2021 Last Documented On 4 1:05PM ; [facility] History of heart disease 11/15/2021 Last Documented On 4 1:05PM ; [facility] History of History of Blood Clots 2021 Last Documented On 4 1:05PM ; [facility] History of History of Heart Attack / Str giselle 11/15/2021 Last Documented On 4 1:05PM ; [facility] History of osteoporosis 11/15/2021 Last Documented On 4 1:05PM ; [facility] Arthritis 11/15/2021 Last Documented On 4 1:05PM ; [facility] Asthma 11/15/2021 Last Documented On 4 1:05PM ; [facility] Depression 11/15/2021 Last Documented On 4 1:05PM ; [facility] Heart disease 11/15/2021 Last Documented On 4 1:05PM ; [facility] Heartburn / Acid Reflux 11/15/2021 Last Documented On 4 1:05PM ; [facility] History of Blood Clots 11/15/2021 Last Documented On 4 1:05PM ; [facility] History of Gallbladder 11/15/2021 Last Documented On 4 1:05PM ; [facility] History of Heart Attack / Stroke 022 Last Documented On 4 1:05PM ; [facility] Osteoporosis 11/15/2021 Last Documented On 4 1:05PM ; [facility] Shoulder arthroplasty 11/15/2021 Last Documented On 4 1:05PM ; [facility] Total knee arthroplasty 11/15/2021 Last Documented On 4 1:05PM ; [facility] Family History Includes: Family History addressed during this encounter Description Last Updated Family history of cancer 11/15/2021 Last Documented On 4 1:05PM ; [facility] Family history of heart disease 11/16/19 22 Last Documented On 4 1:05PM ; [facility] Family history of rheumatoid arthritis 0 11/15/2021 Last Documented On 4 1:05PM ; [facility] Maternal grandfather's history of family history of heart disease 11/15/2021 Last Documented On 4 1:05PM ; [facility] Maternal grandmother's history of family history of heart disease 11/15/2021 Last Documented On 4 1:05PM ; [facility] Maternal grandmother's history of rheuma toid arthritis 11/15/2021 Last Documented On 4 1:05PM ; [facility] Maternal history of family history of ca ncer 11/15/2021 Last Documented On 4 1:05PM ; [facility] Maternal history of family history of he art disease 11/15/2021 Last Documented On 4 1:05PM ; [facility] Paternal grandfather's history of family history of heart disease 11/15/2021 Last Documented On 4 1:05PM ; [facility] Diabetes mellitus 12/08/2020 Last Documented On 4 1:05PM ; [facility] Review of Systems Includes: Review of Systems [...] Time Diagnosis Follow Up Karlos Nunez PA-C [facility] [place] [place] 4 12:58PM 1:18PM Overweight Insurance Includes: Active Insurance Policies Plan Name Member ID Group # Subscriber Relationship Effect daksha Dates 1 - [employer] [id number] Mela Neves Self Clinical Notes Includes: Clinical Notes from this encounter * Progress note Date Encounter Last Documented by 03/06/2024 Follow Up Last documented on 03/06/2024; 4:06 PM, Karlos Mcneil; [facility] Active Problems & Conditions - Joint Pain [...] Tablet 30 days, 0 refills - Nystatin 137513 UNIT/ML Mouth/Throat Suspension 14 days, 0 refills [...]
--- OUTSIDE RECORDS SUMMARY | 2024-08-29 14:12 | XMS_ITS | Clinical Summary ---
Author Organization [facility] , [facility] Address [address] [place] [address] Phone Care Team Providers Care Overlock Waistline Joiner Name Role Phone IGNACIO HARTMAN Unavailable [phone] Nikunj HA, Joey Vieira Unavailable [phone] Reason for Visit and Chief Complaint The Chief Complaint is: Right thumb and hand pain Problems Includes: Problems addressed during this encounter and other active Problems Current Visit Onset Date Resolved Date Provider Conditio n Status Lower Back Pain 01/17/2023 Richard Palomo PA-C A ctive Last Documented On 3 2:28PM ; [facility], [facility] Lower Back Pain 10/23/2020 11/15/2021 Janell Vila PA-C Resolved Last Documented On 2 9:13AM ; [facility], [facility] Past Visits Onset Date Resolved Date Provider Condition Status Joint Pain Right Thumb 08/23/2023 Karlos de paz PA-C Active Last Documented On 4 10:36AM ; [facility], [facility] Joint Pain in the Left Hip 06/14/2022 Richard alves PA-C Active Last Documented On 3 3:30PM ; [facility], [facility] Joint Pain in the Right Knee 03/25/2022 Janell Vila PA-C Active Last Documented On 2 12:58PM ; [facility], [facility] Plan of Treatment Future Appointments Date Time Location Provi talat Follow Up 09/04/2024 2:00[facility] Last Documented On 5 1:57PM ; [facility] Instructions to patient Intervention and counseling on cessation of tobacco use Last Documented On 4 1:08PM ; [facility], [facility] Lose weight Last Documented On 4 1:08PM ; [facility], [facility] Assessments Includes: Assessments from this encounter Findings - Overweight - Last Documented On 11/29/2023 1:34PM ; [facility], [facility] Instructions Includes: Instructions from this encounter Instructions to patient Intervention and counseling on cessation of tobacco use Last Documented On 4 1:08PM ; [facility] Lose weight Last Documented On 4 1:08PM ; [facility], [facility] Medical Equipment - Implanted Devices Includes: Current Devices No Medical Equipment Recorded Medications Includes: Medications discussed during this encounter and other current Medications Current Medications (continue as prescribed) Naproxen 500 MG Oral Tablet 06/24/2023 Provider: IGNACIO HARTMAN Diagnosis: Last Documented On 4 10:41AM By Geni Johns ; [facility], [facility] HYDROcodone-Acetaminophen 5-325 MG Oral Tablet 024 Provider: Diagnosis: Last Documented On 4 10:41AM By Geni Johns ; [facility], [facility] Repatha SureClick 140 MG/ML Subcutaneous Solution Auto-injector 06/08/2023 Provider: Diagnosis: Last Documented On 4 10:41AM By Geni Johns ; [facility], [facility] Pantoprazole Sodium 40 MG Or al Tablet Delayed Release 06/06/2023 Provider: IGNACIO HARTMAN Diagnosis: Last Documented On 4 10:41AM By Geni Johns ; [facility], [facility] Sertraline HCl 100 MG Oral Tablet 06/06/2023 Provide r: IGNACIO HARTMAN Diagnosis: Last Documented On 4 10:41AM By Geni Johns ; [facility], [facility] Fluconazole 100 MG Oral Tablet 06/06/2023 Provider: IGNACIO HARTMAN Diagnosis: Last Documented On 4 10:41AM By Geni Johns ; [facility] Ondansetron 4 MG Oral Tablet Disintegrating 06/06/2023 Provider: IGNACIO HARTMAN Diagnosis: Last Documented On 4 10:41AM By Geni Johns ; [facility] Albuterol Sulfate (2.5 MG/3M L) 0.083% Inhalation Nebulization solution 05/15/2023 Provider: IGNACIO HARTMAN Diagnosis: Last Documented On 4 10:41AM By Geni Johns ; [facility] Famotidine 20 MG Oral Tablet 05/12/2023 Provider: IGNACIO HARTMAN Diagnosis: Last Documented On 4 10:41AM By Geni Johns ; [facility] Nystatin [id number] UNIT/ML Mouth/Throat Suspension 2023 Provider: IGNACIO HARTMAN Diagnosis: Last Documented On 4 10:41AM By Geni Johns ; [facility], [facility] Rosuvastatin Calcium 10 MG Oral Tablet 02/23/2023 Pr ovider: Diagnosis: Last Documented On 4 10:41AM By Geni Johns ; [facility], [facility] Pregabalin 50 MG Oral Capsule 02/13/2023 Provider: IGNACIO HARTMAN Diagnosis: Last Documented On 4 10:41AM By Geni Johns ; [facility] Amitriptyline HCl 10 MG Oral Tablet 01/10/2023 Provi talat: IGNACIO HARTMAN Diagnosis: Last Documented On 3 11:02AM By Geni Johns ; [facility], [facility] Prasugrel HCl 10 MG Oral Tablet 01/03/2023 Provider: Diagnosis: Last Documented On 4 10:41AM By Geni Johns ; [facility] DULoxetine HCl 30 MG Oral Ca psule Delayed Release Particles 11/04/2022 Provider: IGNACIO HARTMAN Diagnosis: Last Documented On 4 10:41AM By Geni Johns ; [facility] Carvedilol 3.125 MG Oral Tablet 09/23/2022 Provider: Diagnosis: Last Documented On 4 10:41AM By Geni Johns ; [facility], [facility] Esomeprazole Magnesium 40 MG Oral Capsule Delayed Rele ase 06/24/2022 Provider: Diagnosis: Last Documented On 3 10:19AM By Selina Lucas ; [facility], [facility] tiZANidine HCl 2 MG Oral Tablet 06/24/2022 Provider: Diagnosis: Last Documented On 3 10:19AM By Selina Lucas ; [facility], [facility] Past Medications on file Meloxicam 15 MG Oral Tablet 06/30/2023 - 07/30/2023 Pr ovider: Richard Palomo PA-C Diagnosis: Take t tablet by mouth once a day Last Documented On 4 11:20AM By Geni Johns ; [facility], [facility] Medications Administered Includes: Administered Medications from this [...] 06/24/2022 Last Documented On 4 1:08PM ; [facility], [facility] Tobacco non-user 03/25/2022 Last Documented On 4 1:08PM ; [facility] Exercising regularly 03/25/2022 Last Documented On 4 1:08PM ; [facility] No recent change in diet 03/25/2022 Last Documented On 4 1:08PM ; [facility] Not a smoker 03/25/2022 Last Documented On 4 1:08PM ; [facility] Not using alcohol 03/25/2022 Last Documented On 4 1:08PM ; [facility] Not using drugs 03/25/2022 Last Documented On 4 1:08PM ; [facility] Non-smoker 12/08/2021 Last Documented On 4 1:08PM ; [facility] Caffeine use 11/15/2021 Last Documented On 4 1:08PM ; [facility] Yes, current smoker. 11/15/2021 Last Documented On 4 1:08PM ; [facility] Never drank alcohol 11/15/2021 Last Documented On 4 1:08PM ; [facility] Never used drugs 11/15/2021 Last Documented On 4 1:08PM ; [facility] No recent change in diet 12/08/2020 Last Documented On 4 1:08PM ; [facility] Yes, current smoker. 12/08/2020 Last Documented On 4 1:08PM ; [facility] Smoking Status Unknown Procedures and Surgical History Includes: Procedures from this encounter Procedures Code Diagnosis Performing Provider Service Location Service Date DRAIN/INJECT, JOINT/BURSA (RIGHT) Unil primary osteoarth of first carpometacarp joint, r hand Karlos Nunez PA-C [facility] 11/29/2023 Last Documented On 4 7:29AM ; [facility] Injection, betamethasone acetate 6mg per cc and betamethason [id number] Unil primary osteoarth of first carpometacarp joint, r hand Karlos Nunez PA-C [facility] 11/29/2023 Last Documented On 4 7:29AM ; [facility] intervention 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 4000F Last Documented On 4 1:08PM ; [facility] use of tobacco assessment performed 1000F Last Documented On 4 1:08PM ; [facility] review of medications documented 1160F Last Documented On 4 1:08PM ; [facility] an X-ray was performed [id number] Last Documented On 4 1:08PM ; [facility] brace Last Documented On 4 1:08PM ; [facility] Surgical History Last Updated History of History of Gallbladder 2021 Last Documented On 4 1:08PM ; [facility] History of shoulder arthroplasty 022 Last Documented On 4 1:08PM ; [facility] History of total knee arthroplasty 11/15 Last Documented On 4 1:08PM ; [facility] History of Past Surgical History: 2021 Last Documented On 4 1:08PM ; [facility] Medical History Includes: Medical History addressed during this encounter Description Last Updated No recent immunization for flu 2 Last Documented On 4 1:08PM ; [facility] No recent immunization for pneumococcal pneumonia 03/25/2022 Last Documented On 4 1:08PM ; [facility] History of arthritis 11/15/2021 Last Documented On 4 1:08PM ; [facility] History of asthma 11/15/2021 Last Documented On 4 1:08PM ; [facility] History of depression 11/15/2021 Last Documented On 4 1:08PM ; [facility] History of heart disease 11/15/2021 Last Documented On 4 1:08PM ; [facility] History of History of Blood Clots 2021 Last Documented On 4 1:08PM ; [facility] History of History of Heart Attack / Str giselle 11/15/2021 Last Documented On 4 1:08PM ; [facility] History of osteoporosis 11/15/2021 Last Documented On [...] 11/15/2021 Last Documented On 4 1:08PM ; [facility] Family history of heart [...] 11/15/2021 Last Documented On 4 1:08PM ; [facility] Maternal history of family history of ca ncer 11/15/2021 Last Documented On 4 1:08PM ; [facility] Maternal history of family history of he art disease 11/15/2021 Last Documented On 4 1:08PM ; [facility] Paternal grandfather's history of family history of heart disease 11/15/2021 Last Documented On 4 1:08PM ; [facility] Diabetes mellitus 12/08/2020 Last Documented On 4 1:08PM ; [facility] Review of Systems Includes: Review [...] Time Diagnosis Follow [facility] 1:44[facility] Overweight Insurance Includes: Active Insurance Policies Plan Name Member ID Group # Subscriber Relationship Effect daksha Dates 1 - [facility]ENNIFER [id number] Mela Neves Self Clinical Notes Includes: Clinical Notes from this encounter * Progress note Date Encounter Last Documented by 11/29/2023 Follow Up Last documented on 11/29/2023; 1:34 PM, Karlos Mcneil; [facility] Active Problems & Conditions - [...] Tablet 30 days, 0 refills - Nystatin [id number] UNIT/ML Mouth/Throat Suspension 14 days, 0 refills [...]
--- OUTSIDE RECORDS SUMMARY | 2024-08-29 14:12 | XMS_ITS | Clinical Summary ---
Author Organization [facility] , [facility] Address [address] [place] [address] Phone Care Team Providers Care Last Scourer Name Role Phone IGNACIO PEOPLES Unavailable [phone] Nikunj HA, Joey Vieira Unavailable [phone] Reason for Visit and Chief Complaint BRACE FITTING Problems Includes: Problems addressed during this encounter and other active Problems All Visits Onset Date Resolved Date Provider Condition S tatus Joint Pain Right Thumb 08/23/2023 Karlos de paz PA-C Active Last Documented On 4 10:36AM ; [facility], [facility] Lower Back Pain 01/17/2023 Richard Palomo PA-C A ctive Last Documented On 3 2:28PM ; [facility], [facility] Joint Pain in the Left Hip 06/14/2022 Richard alves PA-C Active Last Documented On 3 3:30PM ; [facility] Joint Pain in the Right Knee 03/25/2022 Janell Vila PA-C Active Last Documented On 2 12:58PM ; [facility], [facility] Plan of Treatment Future Appointments Date Time Location Provi talat Follow Up 09/04/2024 2:00PM [facility] Last Documented On 5 1:57PM ; [facility], [facility] Assessments Includes: Assessments from this encounter No Assessments Recorded Medical Equipment - Implanted Devices Includes: Current Devices No Medical Equipment Recorded Medications Includes: Medications discussed during this encounter and other current Medications Current Medications (continue as prescribed) Naproxen 500 MG Oral Tablet 06/24/2023 Provider: IGNACIO PEOPLES Diagnosis: Last Documented On 4 10:41AM By Geni Johns ; [facility], [facility] HYDROcodone-Acetaminophen 5-325 MG Oral Tablet 024 Provider: Diagnosis: Last Documented On 4 10:41AM By Geni Johns ; [facility], [facility] Repatha SureClick 140 MG/ML Subcutaneous Solution Auto-injector 06/08/2023 Provider: Diagnosis: Last Documented On 4 10:41AM By Geni Johns ; [facility], [facility] Pantoprazole Sodium 40 MG Or al Tablet Delayed Release 06/06/2023 Provider: IGNACIO PEOPLES Diagnosis: Last Documented On 4 10:41AM By Geni Johns ; [facility], [facility] Sertraline HCl 100 MG Oral Tablet 06/06/2023 Provide r: IGNACIO PEOPLES Diagnosis: Last Documented On 4 10:41AM By Geni Johns ; [facility], [facility] Fluconazole 100 MG Oral Tablet 06/06/2023 Provider: IGNACIO PEOPLES Diagnosis: Last Documented On 4 10:41AM By Geni Johns ; [facility], [facility] Ondansetron 4 MG Oral Tablet Disintegrating 06/06/2023 Provider: IGNACIO PEOPLES Diagnosis: Last Documented On 4 10:41AM By Geni Johns ; [facility], [facility] Albuterol Sulfate (2.5 MG/3M L) 0.083% Inhalation Nebulization solution 05/15/2023 Provider: IGNACIO PEOPLES Diagnosis: Last Documented On 4 10:41AM By Geni Johns ; [facility], [facility] Famotidine 20 MG Oral Tablet 05/12/2023 Provider: IGNACIO PEOPLES Diagnosis: Last Documented On 4 10:41AM By Geni Johns ; [facility], [facility] Nystatin [id number] UNIT/ML Mouth/Throat Suspension 2023 Provider: IGNACIO PEOPLES Diagnosis: Last Documented On 4 10:41AM By Geni Johns ; [facility] Rosuvastatin Calcium 10 MG Oral Tablet 02/23/2023 Pr ovider: Diagnosis: Last Documented On 4 10:41AM By Geni Johns ; [facility] Pregabalin 50 MG Oral Capsule 02/13/2023 Provider: IGNACIO PEOPLES Diagnosis: Last Documented On 4 10:41AM By Geni Johns ; [facility] Amitriptyline HCl 10 MG Oral Tablet 01/10/2023 Provi talat: IGNACIO SHELTON Diagnosis: Last Documented On 3 11:02AM By Geni Johns ; [facility] Prasugrel HCl 10 MG Oral Tablet 01/03/2023 Provider: Diagnosis: Last Documented On 4 10:41AM By Geni Johns ; [facility], [facility] DULoxetine HCl 30 MG Oral Ca psule Delayed Release Particles 11/04/2022 Provider: IGNACIO PEOPLES Diagnosis: Last Documented On 4 10:41AM By Geni Johns ; [facility] Carvedilol 3.125 MG Oral Tablet 09/23/2022 Provider: Diagnosis: Last Documented On 4 10:41AM By Geni Johns ; [facility] Esomeprazole Magnesium 40 MG Oral Capsule Delayed Rele ase 06/24/2022 Provider: Diagnosis: Last Documented On 3 10:19AM By Selina Lucas ; [facility] tiZANidine HCl 2 MG Oral Tablet 06/24/2022 Provider: Diagnosis: Last Documented On 3 10:19AM By Selina Lucas ; [facility], [facility] Medications Administered [...] carpometacarp joint, r hand Nikolai Fagan MD [facility] 06/05/2024 Last Documented On 12:33PM ; [facility], [facility] Medical History [...] Subscriber Relationship Effect daksha Dates 1 - [facility]/ [employer] [id number] Mela Neves Self Clinical Notes Includes: Clinical Notes from this encounter No Clinical Notes Recorded
--- OUTSIDE RECORDS SUMMARY | 2024-08-29 14:12 | XMS_ITS | Clinical Summary ---
Author Organization [facility] , [facility] Address [address] [place] [address] Phone Care Team Providers Care Body Builder Apprentice Name Role Phone IGNACIO PEOPLES Unavailable [phone] Nikunj HA, Joey Vieira Unavailable [phone] Reason for Visit and Chief Complaint BRACE FITTING Problems Includes: Problems addressed during this encounter and other active Problems All Visits Onset Date Resolved Date Provider Condition S tatus Joint Pain Right Thumb 08/23/2023 Karlos de paz PA-C Active Last Documented On 4 10:36AM ; [facility], [facility] Lower Back Pain 01/17/2023 Richard Palomo PA-C A ctive Last Documented On 3 2:28PM ; [facility], [facility] Joint Pain in the Left Hip 06/14/2022 Richard alves PA-C Active Last Documented On 3 3:30PM ; [facility] Joint Pain in the Right Knee 03/25/2022 Janell Vila PA-C Active Last Documented On 2 12:58PM ; [facility], [facility] Plan of Treatment Future Appointments Date Time Location Provi talat Follow Up 09/04/2024 2:00PM [facility] Last Documented On 5 1:57PM ; [facility], [facility] Assessments Includes: Assessments from this encounter No Assessments Recorded Medical Equipment - Implanted Devices Includes: Current Devices No Medical Equipment Recorded Medications Includes: Medications discussed during this encounter and other current Medications Current Medications (continue as prescribed) Naproxen 500 MG Oral Tablet 06/24/2023 Provider: IGNACIO PEOPLES Diagnosis: Last Documented On 4 10:41AM By Geni Johns ; [facility], [facility] HYDROcodone-Acetaminophen 5-325 MG Oral Tablet 024 Provider: Diagnosis: Last Documented On 4 10:41AM By Geni Johns ; [facility], [facility] Repatha SureClick 140 MG/ML Subcutaneous Solution Auto-injector 06/08/2023 Provider: Diagnosis: Last Documented On 4 10:41AM By Geni Johns ; [facility], [facility] Pantoprazole Sodium 40 MG Or al Tablet Delayed Release 06/06/2023 Provider: IGNACIO PEOPLES Diagnosis: Last Documented On 4 10:41AM By Geni Johns ; [facility], [facility] Sertraline HCl 100 MG Oral Tablet 06/06/2023 Provide r: IGNACIO PEOPLES Diagnosis: Last Documented On 4 10:41AM By Geni Johns ; [facility], [facility] Fluconazole 100 MG Oral Tablet 06/06/2023 Provider: IGNACIO PEOPLES Diagnosis: Last Documented On 4 10:41AM By Geni Johns ; [facility], [facility] Ondansetron 4 MG Oral Tablet Disintegrating 06/06/2023 Provider: IGNACIO PEOPLES Diagnosis: Last Documented On 4 10:41AM By Geni Johns ; [facility], [facility] Albuterol Sulfate (2.5 MG/3M L) 0.083% Inhalation Nebulization solution 05/15/2023 Provider: IGNACIO PEOPLES Diagnosis: Last Documented On 4 10:41AM By Geni Johns ; [facility], [facility] Famotidine 20 MG Oral Tablet 05/12/2023 Provider: IGNACIO PEOPLES Diagnosis: Last Documented On 4 10:41AM By Geni Johns ; [facility], [facility] Nystatin [id number] UNIT/ML Mouth/Throat Suspension 2023 Provider: IGNACIO PEOPLES Diagnosis: Last Documented On 4 10:41AM By Geni Johns ; [facility] Rosuvastatin Calcium 10 MG Oral Tablet 02/23/2023 Pr ovider: Diagnosis: Last Documented On 4 10:41AM By Geni Johns ; [facility] Pregabalin 50 MG Oral Capsule 02/13/2023 Provider: IGNACIO PEOPLES Diagnosis: Last Documented On 4 10:41AM By Geni Johns ; [facility] Amitriptyline HCl 10 MG Oral Tablet 01/10/2023 Provi talat: IGNACIO SHELTON Diagnosis: Last Documented On 3 11:02AM By Geni Johns ; [facility] Prasugrel HCl 10 MG Oral Tablet 01/03/2023 Provider: Diagnosis: Last Documented On 4 10:41AM By Geni Johns ; [facility] DULoxetine HCl 30 MG Oral Ca psule Delayed Release Particles 11/04/2022 Provider: IGNACIO PEOPLES Diagnosis: Last Documented On 4 10:41AM By Geni Johns ; [facility] Carvedilol 3.125 MG Oral Tablet 09/23/2022 Provider: Diagnosis: Last Documented On 4 10:41AM By Geni Johns ; [facility] Esomeprazole Magnesium 40 MG Oral Capsule Delayed Rele ase 06/24/2022 Provider: Diagnosis: Last Documented On 3 10:19AM By Selina Lucas ; [facility] tiZANidine HCl 2 MG Oral Tablet 06/24/2022 Provider: Diagnosis: Last Documented On 3 10:19AM By Selina Lucas ; [facility] Medications Administered Includes: Administered Medications from this encounter No Administered Medications Recorded Results Includes: Results discussed during this encounter No Results Recorded For Specified Dates History of Present Illness Includes: History of Present Illness from this encounter No History of Present Illness Recorded Social History No Social History Recorded - Smoking Status Unknown Medical History Includes: Medical History addressed during [...] Subscriber Relationship Effect daksha Dates 1 - [facility] [id number] Mela Neves Self Clinical Notes Includes: Clinical Notes from this encounter No Clinical Notes Recorded
--- OUTSIDE RECORDS SUMMARY | 2024-08-29 14:12 | XMS_ITS | Clinical Summary ---
Author Organization [facility] , [facility] Address [address] [place] [address] Phone Care Team Providers Care Fourth Hand Name Role Phone IGNACIO HARTMAN Unavailable [phone] Nikunj HA, Joey Vieira Unavailable [phone] Reason for Visit and Chief Complaint The Chief Complaint is: lt elbow pain Problems Includes: Problems addressed during this encounter and other active Problems Current Visit Onset Date Resolved Date Provider Conditio n Status Lower Back Pain 01/17/2023 Richard Palomo PA-C A ctive Last Documented On 3 2:28PM ; [facility], [facility] Lower Back Pain 10/23/2020 11/15/2021 Janell Vila PA-C Resolved Last Documented On 2 9:13AM ; [facility], [facility] Past Visits Onset Date Resolved Date Provider Condition Status Joint Pain Right Thumb 08/23/2023 Karlos de paz PA-C Active Last Documented On 4 10:36AM ; [facility] Joint Pain in the Left Hip 06/14/2022 Richard alves PA-C Active Last Documented On 3 3:30PM ; [facility] Joint Pain in the Right Knee 03/25/2022 Janell Vila PA-C Active Last Documented On 2 12:58PM ; [facility], [facility] Plan of Treatment Pending Tests Order Diagnosis Results Due Ordering P rovider Therapy - Occupational Therapy Elbow Overweight 06/05 Karlos Nunez PA-C Last Documented On 5 3:40PM ; [facility], [facility] Future Appointments Date Time Location Provi talat Follow Up 09/04/2024 2:00PM [facility] YAMILE Nunez PA-C Last Documented On 5 1:57PM ; [facility], [facility] Instructions to patient Lose weight Last Documented On 5 1:01PM ; [facility], [facility] Assessments Includes: Assessments from this encounter Findings - Overweight - Last Documented On 06/05/2024 3:40PM ; [facility], [facility] Instructions Includes: Instructions from this encounter Instructions to patient Lose weight Last Documented On 5 1:01PM ; [facility], [facility] Medical Equipment - Implanted Devices Includes: Current Devices No Medical Equipment Recorded Medications Includes: Medications discussed during this encounter and other current Medications Current Medications (continue as prescribed) Naproxen 500 MG Oral Tablet 06/24/2023 Provider: IGNACIO HARTMAN Diagnosis: Last Documented On 4 10:41AM By Geni Johns ; [facility], [facility] HYDROcodone-Acetaminophen 5-325 MG Oral Tablet 024 Provider: Diagnosis: Last Documented On 4 10:41AM By Geni Johns ; [facility], [facility] Repatha SureClick 140 MG/ML Subcutaneous Solution Auto-injector 06/08/2023 Provider: Diagnosis: Last Documented On 4 10:41AM By Geni Johns ; [facility], [facility] Pantoprazole Sodium 40 MG Or al Tablet Delayed Release 06/06/2023 Provider: IGNACIO HARTMAN Diagnosis: Last Documented On 4 10:41AM By Geni Johns ; [facility], [facility] Sertraline HCl 100 MG Oral Tablet 06/06/2023 Provide r: IGNACIO HARTMAN Diagnosis: Last Documented On 4 10:41AM By Geni Johns ; [facility], [facility] Fluconazole 100 MG Oral Tablet 06/06/2023 Provider: IGNACIO HARTMAN Diagnosis: Last Documented On 4 10:41AM By Geni Johns ; [facility], [facility] Ondansetron 4 MG Oral Tablet Disintegrating 06/06/2023 Provider: IGNACIO HARTMAN Diagnosis: Last Documented On 4 10:41AM By Geni Johns ; [facility], [facility] Albuterol Sulfate (2.5 MG/3M L) 0.083% Inhalation Nebulization solution 05/15/2023 Provider: IGNACIO HARTMAN Diagnosis: Last Documented On 4 10:41AM By Geni Johns ; [facility] Famotidine 20 MG Oral Tablet 05/12/2023 Provider: IGNACIO HARTMAN Diagnosis: Last Documented On 4 10:41AM By Geni Johns ; [facility] Nystatin [id number] UNIT/ML Mouth/Throat Suspension 2023 Provider: IGNACIO HARTMAN Diagnosis: Last Documented On 4 10:41AM By Geni Johns ; [facility], [facility] Rosuvastatin Calcium 10 MG Oral Tablet 02/23/2023 Pr ovider: Diagnosis: Last Documented On 4 10:41AM By Geni Johns ; [facility] Pregabalin 50 MG Oral Capsule 02/13/2023 Provider: IGNACIO HARTMAN Diagnosis: Last Documented On 4 10:41AM By Geni Johns ; [facility], [facility] Amitriptyline HCl 10 MG Oral Tablet 01/10/2023 Provi talat: IGNACIO HARTMAN Diagnosis: Last Documented On 3 11:02AM By Geni Johns ; [facility] Prasugrel HCl 10 MG Oral Tablet 01/03/2023 Provider: Diagnosis: Last Documented On 4 10:41AM By Geni Johns ; [facility] DULoxetine HCl 30 MG Oral Ca psule Delayed Release Particles 11/04/2022 Provider: IGNACIO HARTMAN Diagnosis: Last Documented On 4 10:41AM By Geni Johns ; [facility] Carvedilol 3.125 MG Oral Tablet 09/23/2022 Provider: Diagnosis: Last Documented On 4 10:41AM By Gein Johns ; [facility] Esomeprazole Magnesium 40 MG Oral Capsule Delayed Rele ase 06/24/2022 Provider: Diagnosis: Last Documented On 3 10:19AM By Selina Lucas ; [facility], [facility] tiZANidine HCl 2 MG Oral Tablet 06/24/2022 Provider: Diagnosis: Last Documented On 3 10:19AM By Selina Lucas ; [facility], [facility] Past Medications on file Meloxicam 15 MG Oral Tablet 06/30/2023 - 07/30/2023 Pr ovider: Richard Palomo PA-C Diagnosis: Take t tablet by mouth once a day Last Documented On 4 11:20AM By Geni Johns ; [facility], [facility] Medications Administered Includes: Administered Medications from this encounter No Administered Medications Recorded Vital Signs Includes: Vital Signs from this encounter Vital Name 06/05/2024 01:02P Height (in) 67 Weight (lb) 257 Body Mass Index 40.3 Body Surface Area 2.2 Note: mg Last Documented: On 06/05/2024 1:02PM ; [facility], [facility] Results Includes: Results discussed during [...] 06/24/2022 Last Documented On 5 1:01PM ; [facility], [facility] Tobacco non-user 03/25/2022 Last Documented On 5 1:01PM ; [facility], [facility] Exercising regularly 03/25/2022 Last Documented On 5 1:01PM ; [facility] No recent change in diet 03/25/2022 Last Documented On 5 1:01PM ; [facility] Not a smoker 03/25/2022 Last Documented On 5 1:01PM ; [facility] Not using alcohol 03/25/2022 Last Documented On 5 1:01PM ; [facility] Not using drugs 03/25/2022 Last Documented On 5 1:01PM ; [facility] Non-smoker 12/08/2021 Last Documented On 5 1:01PM ; [facility] Caffeine use 11/15/2021 Last Documented On 5 1:01PM ; [facility] Yes, current smoker. 11/15/2021 Last Documented On 5 1:01PM ; [facility] Never drank alcohol 11/15/2021 Last Documented On 5 1:01PM ; [facility] Never used drugs 11/15/2021 Last Documented On 5 1:01PM ; [facility] No recent change in diet 12/08/2020 Last Documented On 5 1:01PM ; [facility] Yes, current smoker. 12/08/2020 Last Documented On 5 1:01PM ; [facility] Smoking Status Unknown Procedures and Surgical History Includes: Procedures from this encounter Procedures Code Diagnosis Performing Provider Service Location Service Date DRAIN/INJECT, JOINT/BURSA (RIGHT) Unil primary osteoarth of first carpometacarp joint, r hand Nikolai Fagan MD [facility] 06/05/2024 Last Documented On 5 12:32PM ; [facility], [facility] Injection, betamethasone acetate 6mg per cc and betamethason J0702 Unil primary osteoarth of first carpometacarp joint, r charmaine Fagan MD [facility] 06/05/2024 Last Documented On 5 12:32PM ; [facility] use of tobacco assessment performed 1000F Last Documented On 5 1:01PM ; [facility], [facility] review of medications documented 1160F Last Documented On 5 1:01PM ; [facility], [facility] an X-ray was performed [id number] Last Documented On 5 1:01PM ; [facility], [facility] brace Last Documented On 5 1:01PM ; [facility], [facility] Surgical History Last Updated History of History of Gallbladder 2021 Last Documented On 5 1:01PM ; [facility] History of shoulder arthroplasty 022 Last Documented On 5 1:01PM ; [facility] History of total knee arthroplasty 11/15 Last Documented On 5 1:01PM ; [facility], [facility] History of Past Surgical History: 2021 Last Documented On 5 1:01PM ; [facility], [facility] Medical History Includes: Medical History addressed during this encounter Description Last Updated No recent immunization for flu Last Documented On 5 1:01PM ; [facility], [facility] No recent immunization for pneumococcal pneumonia 03/25/2022 Last Documented On 5 1:01PM ; [facility] History of arthritis 11/15/2021 Last Documented On 5 1:01PM ; [facility] History of asthma 11/15/2021 Last Documented On 5 1:01PM ; [facility] History of depression 11/15/2021 Last Documented On 5 1:01PM ; [facility], [facility] History of heart disease 11/15/2021 Last Documented On 5 1:01PM ; [facility] History of History of Blood Clots 2021 Last Documented On 5 1:01PM ; [facility], [facility] History of History of Heart Attack / Str giselle 11/15/2021 Last Documented On 5 1:01PM ; [facility], [facility] History of osteoporosis 11/15/2021 Last Documented On 5 1:01PM ; [facility] Arthritis 11/15/2021 Last Documented On 5 1:01PM ; [facility] Asthma 11/15/2021 Last Documented On 5 1:01PM ; [facility] Depression 11/15/2021 Last Documented On 5 1:01PM ; [facility] Heart disease 11/15/2021 Last Documented On 5 1:01PM ; [facility] Heartburn / Acid Reflux 11/15/2021 Last Documented On 5 1:01PM ; [facility] History of Blood Clots 11/15/2021 Last Documented On 5 1:01PM ; [facility] History of Gallbladder 11/15/2021 Last Documented On 5 1:01PM ; [facility], [facility] History of Heart Attack / Stroke 022 Last Documented On 5 1:01PM ; [facility] Osteoporosis 11/15/2021 Last Documented On 5 1:01PM ; [facility] Shoulder arthroplasty 11/15/2021 Last Documented On 5 1:01PM ; [facility] Total knee arthroplasty 11/15/2021 Last Documented On 5 1:01PM ; [facility] Family History Includes: Family History addressed during this encounter Description Last Updated Family history of cancer 11/15/2021 Last Documented On 5 1:01PM ; [facility] Family history of heart disease 11/16/19 22 Last Documented On 5 1:01PM ; [facility] Family history of rheumatoid arthritis 0 11/15/2021 Last Documented On 5 1:01PM ; [facility] Maternal grandfather's history of family history of heart disease 11/15/2021 Last Documented On 5 1:01PM ; [facility], [facility] Maternal grandmother's history of family history of heart disease 11/15/2021 Last Documented On 5 1:01PM ; [facility], [facility] Maternal grandmother's history of rheuma toid arthritis 11/15/2021 Last Documented On 5 1:01PM ; [facility], [facility] Maternal history of family history of ca ncer 11/15/2021 Last Documented On 5 1:01PM ; [facility], [facility] Maternal history of family history of he art disease 11/15/2021 Last Documented On 5 1:01PM ; [facility], [facility] Paternal grandfather's history of family history of heart disease 11/15/2021 Last Documented On 5 1:01PM ; [facility] Diabetes mellitus 12/08/2020 Last Documented On 5 1:01PM ; [facility], [facility] Review of Systems Includes: Review [...] Diagnosis NEW PROBLEM/EST PT Karlos Nunez PA-C [facility] 06/05/19 1:00PM 1:44PM Overweight Insurance Includes: Active Insurance Policies Plan Name Member ID Group # Subscriber Relationship Effect daksha Dates 1 - [facility] [id number] Mela Neves Self Clinical Notes Includes: Clinical Notes from this encounter * Progress note Date Encounter Last Documented by 06/05/2024 NEW PROBLEM/EST PT Last document ed on 06/05/2024; 3:40 PM, Karlos Nunez PA-C; [facility], [facility] Active Problems & Conditions - [...] Tablet 30 days, 0 refills - Nystatin [id number] UNIT/ML Mouth/Throat Suspension 14 days, 0 refills [...]
--- OUTSIDE RECORDS SUMMARY | 2024-08-29 14:12 | XMS_ITS ---
Author Organization [facility] Address [address] [place] [address] Phone Care Team Providers Care Loading Machine Adjuster Name Role Phone IGNACIO PEOPLES Unavailable [phone] Nikunj HA, Joey Vieira Unavailable [phone] Reason for Referral Date [...] Active Last Documented On 4 10:36AM ; [facility] Lower Back Pain 01/17/2023 Richard Palomo PA-C A ctive Last Documented On 3 2:28PM ; [facility] Joint Pain in the Left Hip 06/14/2022 Richard alves PA-C Active Last Documented On 3 3:30PM ; [facility] Joint Pain in the Right Knee 03/25/2022 Janell Vila PA-C Active Last Documented On 2 12:58PM ; [facility] Joint Pain in Both Knees 12/08/2020 Janell davidson PA-C Inactive Last Documented On 2 9:13AM ; [facility] Lower Back Pain 10/23/2020 11/15/2021 Janell Vila PA-C Resolved Last Documented On 2 9:13AM ; [facility] Plan of Treatment Pending Tests Order Diagnosis Results Due Ordering P rovider Radiology - Bone Scan Lower Extremity 12/22/20 Joey Calvin MD Last Documented On 1 3:29PM ; [facility] Radiology - MRI MRI Lumbar Spine 01/22/21 George in Yonatan Szymanski MD Last Documented On 1 1:39PM ; [facility] Future Appointments Date Time Location Provi talat Follow Up 09/04/2024 2:00PM [facility] Last Documented On 5 1:57PM ; [facility] Instructions to patient Lose weight Last Documented On 5 1:01PM ; [facility] Intervention and counseling on cessation [...] use Last Documented On 1 8:13AM ; [facility] Lose weight Last Documented On 1 8:13AM ; [facility] Intervention and counseling on cessation of tobacco use Last Documented On 1 2:06PM ; [facility] Lose weight Last Documented On 1 2:06PM ; [facility] Intervention and counseling on cessation of tobacco use Last Documented On 1 10:06AM ; [facility] Lose weight Last Documented On 1 10:06AM ; [facility] Assessments Includes: Assessments for all patient encounters Findings Encounter Date Overweight NEW PROBLEM/EST PT with Karlos jaime PA-C 06/05/2024 Last Documented On 5 3:40PM ; [facility] Overweight Follow Up with Karlos Nunez PA -C 03/06/2024 Last Documented On 4 4:06PM ; [facility] Overweight Follow Up with Karlos Nunez PA -C 11/29/2023 Last Documented On 4 1:34PM ; [facility] Overweight Physician Specified with Karlos Nunez PA-C 08/23/2023 Last Documented On 4 11:23AM ; [facility] No diagnosis of underweight NEW PROBLEM/EST PT w ith Richard Palomo PA-C 01/17/2023 Last Documented On 3 3:10PM ; [facility] Overweight NEW PROBLEM/EST PT with Richard Palomo PA-C 01/17/2023 Last Documented On 3 3:10PM ; [facility] No diagnosis of underweight Follow Up with Vamshi Palomo PA-C 01/16/2023 Last Documented On 3 11:40AM ; [facility] Overweight Follow Up with Richard Palomo PA- C 01/16/2023 Last Documented On 3 11:40AM ; [facility] No diagnosis of underweight INJECTION with Vamshi Martinez PA-C 06/24/2022 Last Documented On 3 8:21AM ; [facility] No diagnosis of underweight NEW PROBLEM/EST PT w mert Richard Palomo PA-C 06/14/2022 Last Documented On 3 4:53PM ; [facility] No diagnosis of underweight INJECTION with Janell Vila PA-C 03/25/2022 Last Documented On 2 1:59PM ; [facility] No diagnosis of underweight Follow Up with Vamshi Palomo PA-C 12/28/2021 Last Documented On 2 12:12PM ; [facility] No diagnosis of underweight Specialty Ph armacy GLYNN Injection with Janellgiana Vila PA-C 12/08/2021 Last Documented On 2 3:11PM ; [facility] No diagnosis of underweight Specialty Ph armacy [facility] Injection with Janell Vila PA-C 12/01/2021 Last Documented On 2 3:02PM ; [facility] No diagnosis of underweight Specialty Ph armacy GLYNN Injection with Janellgiana Vila PA-C 11/24/2021 Last Documented On 2 3:37PM ; [facility] No diagnosis of underweight Physician Specified with Janell Vila PA-C 11/15/2021 Last Documented On 2 10:11AM ; [facility] Instructions Includes: Instructions for all patient encounters Instructions to patient Lose weight Last Documented On 5 1:01PM ; [facility] Intervention and counseling on cessation of tobacco use Last Documented On 4 1:05PM ; [facility] Lose weight Last Documented On 4 1:05PM ; [facility] Intervention and counseling on cessation of tobacco use Last Documented On 4 1:08PM ; [facility] Lose weight Last Documented On 4 1:08PM ; [facility] Intervention and counseling on cessation of tobacco use Last Documented On 4 10:37AM ; [facility] Lose weight Last Documented On 4 10:37AM ; [facility] Intervention and counseling on cessation [...] On 4 10:41AM By Geni Johns ; [facility] HYDROcodone-Acetaminophen 5-325 MG Oral Tablet 024 Provider: Diagnosis: Last Documented On 4 10:41AM By Geni Johns ; [facility] Repatha SureClick 140 MG/ML Subcutaneous Solution Auto-injector 06/08/2023 Provider: Diagnosis: Last Documented On 4 10:41AM By Geni Johns ; [facility] Pantoprazole Sodium 40 MG Or al Tablet Delayed Release 06/06/2023 Provider: IGNACIO PEOPLES Diagnosis: Last Documented On 4 10:41AM By Geni Johns ; [facility] Sertraline HCl 100 MG Oral Tablet 06/06/2023 Provide r: IGNACIO PEOPLES Diagnosis: Last Documented On 4 10:41AM By Geni Johns ; [facility] Fluconazole 100 MG Oral Tablet 06/06/2023 Provider: IGNACIO PEOPLES Diagnosis: Last Documented On 4 10:41AM By Geni Johns ; [facility] Ondansetron 4 MG Oral Tablet Disintegrating 06/06/2023 Provider: IGNACIO PEOPLES Diagnosis: Last Documented On 4 10:41AM By Geni Johns ; [facility] Albuterol Sulfate (2.5 MG/3M L) 0.083% Inhalation Nebulization solution 05/15/2023 Provider: IGNACIO PEOPLES Diagnosis: Last Documented On 4 10:41AM By Geni Johns ; [facility] Famotidine 20 MG Oral Tablet 05/12/2023 Provider: IGNACIO PEOPLES Diagnosis: Last Documented On 4 10:41AM By Geni Johns ; [facility] Nystatin 302231 UNIT/ML Mouth/Throat Suspension 2023 Provider: IGNACIO PEOPLES Diagnosis: Last Documented On 4 10:41AM By Geni Johns ; [facility] Rosuvastatin Calcium 10 MG Oral Tablet 02/23/2023 Pr ovider: Diagnosis: Last Documented On 4 10:41AM By Geni Johns ; [facility] Pregabalin 50 MG Oral Capsule 02/13/2023 Provider: IGNACIO PEOPLES Diagnosis: Last Documented On 4 10:41AM By Geni Johns ; [facility] Amitriptyline HCl 10 MG Oral Tablet 01/10/2023 Provi talat: IGNACIO PEOPLES Diagnosis: Last Documented On 3 11:02AM By Geni Johns ; [facility] Prasugrel HCl 10 MG Oral Tablet 01/03/2023 Provider: Diagnosis: Last Documented On 4 10:41AM By Geni Johns ; [facility] DULoxetine HCl 30 MG Oral Ca psule Delayed Release Particles 11/04/2022 Provider: IGNACIO PEOPLES Diagnosis: Last Documented On 4 10:41AM By Geni Johns ; [facility] Carvedilol 3.125 MG Oral Tablet 09/23/2022 Provider: Diagnosis: Last Documented On 4 10:41AM By Geni Johns ; [facility] Esomeprazole Magnesium 40 MG Oral Capsule Delayed Rele ase 06/24/2022 Provider: Diagnosis: Last Documented On 3 10:19AM By Selina Lucas ; [facility] tiZANidine HCl 2 MG Oral Tablet 06/24/2022 Provider: Diagnosis: Last Documented On 3 10:19AM By Selina Lucas ; [facility] Past Medications on file Meloxicam 15 MG Oral Tablet 06/30/2023 - 07/30/2023 Pr ovider: Richard Palomo PA-C Diagnosis: Take t tablet by mouth once a day Last Documented On 4 11:20AM By Geni Johns ; [facility] Famotidine 20 MG Oral Tablet 01/10/2023 - 06/30/2023 P rovider: IGNACIO PEOPLES Diagnosis: Last Documented On 4 10:43AM By Geni Johns ; [facility] Rosuvastatin Calcium 5 MG Oral Tablet 01/06/2023 - Provider: Diagnosis: Last Documented On 4 10:42AM By Geni Johns ; [facility] Prasugrel HCl 10 MG Oral Tablet 01/03/2023 - Provider: Diagnosis: Last Documented On 4 10:42AM By Geni Johns ; [facility] Naproxen 250 MG Oral Tablet 12/23/2022 - 06/30/2023 Pr ovider: Diagnosis: Last Documented On 4 10:43AM By Geni Johns ; [facility] Effient 5 MG Oral Tablet 06/24/2022 - 01/16/2023 Provi talat: Diagnosis: Last Documented On 3 11:03AM By Geni Johns ; [facility] Aspirin 325 MG Oral Tablet 06/24/2022 - 01/16/2023 Pro vider: Diagnosis: Last Documented On 3 11:03AM By Geni Johns ; [facility] Repatha SureClick 140 MG/ML Subcutaneous Solution Auto-injector 06/24/2022 - 01/16/2023 Provider: Diagnosis: Last Documented On 3 11:04AM By Geni Johns ; [facility] Rosuvastatin Calcium 5 MG Oral Tablet 11/15/2021 - Provider: Diagnosis: Last Documented On 3 10:19AM By Selina Lucas ; [facility] Esomeprazole Magnesium 40 MG Oral Capsule Delayed Release 11/15/2021 - 06/24/2022 Provider: Diagnosis: Last Documented On 3 10:19AM By Selina Lucas ; [facility] DULoxetine HCl 20 MG Oral Ca psule Delayed Release Sprinkle 11/15/2021 - 06/24/2022 Provider: Diagnosis: Last Documented On 3 10:19AM By Selina Lucas ; [facility] Bisoprolol Fumarate 5 MG Oral Tablet 11/15/2021 - 06/08 Provider: Diagnosis: Last Documented On 3 10:18AM By Selina Lucas ; [facility] tiZANidine HCl 2 MG Oral Tablet 11/15/2021 - Provider: Diagnosis: Last Documented On 3 10:19AM By Selina Lucas ; [facility] Aspirin 325 MG Oral Tablet 11/15/2021 - 06/24/2022 Pro vider: Diagnosis: Last Documented On 3 10:18AM By Selina Lucas ; [facility] CeleBREX 200 MG Oral Capsule 03/04/2021 - 11/24/2021 Mickey bustillo: Joey Calvin MD Diagnosis: once a day Last Documented On 2 3:02PM By Jason Santana ; [facility] Esomeprazole Magnesium 40 MG Oral Capsule Delayed Release 10/10/2020 - 11/15/2021 Provider: IGNACIO HUBER Diagnosis: Last Documented On 2 9:13AM By Jason Santana ; [facility] Triamterene-HCTZ 37.5-25 MG Oral Tablet 10/09/2020 - 11/15/2021 Provider: IGNACIO PEOPLES Diagnosis: Last Documented On 2 9:13AM By Jason Santana ; [facility] Gabapentin 800 MG Oral Tablet 10/08/2020 - 11/15/2021 Provider: IGNACIO PEOPLES Diagnosis: Last Documented On 2 9:13AM By Jason Santana ; [facility] traMADol HCl 50 MG Oral Tablet 09/17/2020 - 11/15/2021 Provider: IGNACIO PEOPLES Diagnosis: Last Documented On 2 9:13AM By Jason Santana ; [facility] Sertraline HCl 50 MG Oral Tablet 09/02/2020 - 11/16/19 Provider: IGNACIO PEOPLES Diagnosis: Last Documented On 2 9:13AM By Jason Santana ; [facility] Medications Administered Includes: Administered Medications in patient's chart No Administered Medications Recorded Vital Signs Includes: Vital Signs from 08/30/2023 through 08/29/2024 Vital Name 06/05/2024 01:02P 03/06/2024 01: 06P Height (in) 67 67 Weight (lb) 257 257 Body Mass Index 40.3 40.3 Body Surface Area 2.2 2.2 Note: mg KL Last Documented: On 06/05/2024 1:02PM ; [facility] On 03/06/2024 1:06PM ; [facility] Results Includes: Results from 08/30/2023 through 08/29/2024 No Results Recorded For Specified Dates History of Present Illness History of Present Illness not supported for this document type No History of Present Illness Recorded Social History Description Last Updated Tobacco use 06/24/2022 Last Documented On 3 8:21AM ; [facility] Tobacco non-user 03/25/2022 Last Documented On 2 1:59PM ; [facility] Exercising regularly 03/25/2022 Last Documented On 2 1:59PM ; [facility] No recent change in diet 03/25/2022 Last Documented On 2 1:59PM ; [facility] Not a smoker 03/25/2022 Last Documented On 2 1:59PM ; [facility] Not using alcohol 03/25/2022 Last Documented On 2 1:59PM ; [facility] Not using drugs 03/25/2022 Last Documented On 2 1:59PM ; [facility] Non-smoker 12/08/2021 Last Documented On 2 3:11PM ; [facility] Caffeine use 11/15/2021 Last Documented On 2 10:11AM ; [facility] Yes, current smoker. 11/15/2021 Last Documented On 2 10:11AM ; [facility] Never drank alcohol 11/15/2021 Last Documented On 2 10:11AM ; [facility] Never used drugs 11/15/2021 Last Documented On 2 10:11AM ; [facility] No recent change in diet 12/08/2020 Last Documented On 1 3:29PM ; [facility] Yes, current smoker. 12/08/2020 Last Documented On 1 3:29PM ; [facility] Smoking Status Unknown Procedures and Surgical History Includes: Procedures from 08/30/2023 through 08/29/2024 Procedures Code Diagnosis Performing Provider Service Location Service Date COCK-UP WRIST SPLINT WITH OR W/O THUMB (RIGHT) [id number] Unil primary osteoarth of first carpometacarp joint, r hand Nikolai Fagan MD [facility] 06/05/2024 Last Documented On 5 12:33PM ; [facility] Injection, betamethasone acetate 6mg per cc and betamethason J0702 Unil primary osteoarth of first carpometacarp joint, r hand Nikolai Fagan MD [facility] 06/05/2024 Last Documented On 5 12:32PM ; [facility] DRAIN/INJECT, JOINT/BURSA (RIGHT) Unil primary osteoarth of first carpometacarp joint, r hand Nikolai Fagan MD [facility] 06/05/2024 Last Documented On 5 12:32PM ; [facility] Injection, betamethasone acetate 6mg per cc and betamethason J0702 Unil primary osteoarth of first carpometacarp joint, r hand Karlos Nunez PA-C [facility] 11/29/2023 Last Documented On 4 7:29AM ; [facility] DRAIN/INJECT, JOINT/BURSA (RIGHT) Unil primary osteoarth of first carpometacarp joint, r hand Karlos Nunez PA-C [facility] 11/29/2023 Last Documented On 4 7:29AM ; [facility] Surgical History Last Updated History of History of Gallbladder 2021 Last Documented On 2 10:11AM ; [facility] History of shoulder arthroplasty 022 Last Documented On 2 10:11AM ; [facility] History of total knee arthroplasty 11/15 Last Documented On 2 10:11AM ; [facility] History of Past Surgical History: 2021 Last Documented On 2 10:11AM ; [facility] Medical History Includes: Medical History in patient's chart Description Last Updated No recent immunization for flu 2 Last Documented On 2 1:59PM ; [facility] No recent immunization for pneumococcal pneumonia 03/25/2022 Last Documented On 2 1:59PM ; [facility] History of arthritis 11/15/2021 Last Documented On 2 10:11AM ; [facility] History of asthma 11/15/2021 Last Documented On 2 10:11AM ; [facility] History of depression 11/15/2021 Last Documented On 2 10:11AM ; [facility] History of heart disease 11/15/2021 Last Documented On 2 10:11AM ; [facility] History of History of Blood Clots 2021 Last Documented On 2 10:11AM ; [facility] History of History of Heart Attack / Str giselle 11/15/2021 Last Documented On 2 10:11AM ; [facility] History of osteoporosis 11/15/2021 Last Documented On 2 10:11AM ; [facility] Arthritis 11/15/2021 Last Documented On 2 10:11AM ; [facility] Asthma 11/15/2021 Last Documented On 2 10:11AM ; [facility] Depression 11/15/2021 Last Documented On 2 10:11AM ; [facility] Heart disease 11/15/2021 Last Documented On 2 10:11AM ; [facility] Heartburn / Acid Reflux 11/15/2021 Last Documented On 2 10:11AM ; [facility] History of Blood Clots 11/15/2021 Last Documented On 2 10:11AM ; [facility] History of Gallbladder 11/15/2021 Last Documented On 2 10:11AM ; [facility] History of Heart Attack / Stroke 022 Last Documented On 2 10:11AM ; [facility] Osteoporosis 11/15/2021 Last Documented On 2 10:11AM ; [facility] Shoulder arthroplasty 11/15/2021 Last Documented On 2 10:11AM ; [facility] Total knee arthroplasty 11/15/2021 Last Documented On 2 10:11AM ; [facility] Family History Includes: Family History in patient's chart Description Last Updated Family history of cancer 11/15/2021 Last Documented On 2 10:11AM ; [facility] Family history of heart disease 11/16/19 22 Last Documented On 2 10:11AM ; [facility] Family history of rheumatoid arthritis 0 11/15/2021 Last Documented On 2 10:11AM ; [facility] Maternal grandfather's history of family history of heart disease 11/15/2021 Last Documented On 2 10:11AM ; [facility] Maternal grandmother's history of family history of heart disease 11/15/2021 Last Documented On 2 10:11AM ; [facility] Maternal grandmother's history of rheuma toid arthritis 11/15/2021 Last Documented On 2 10:11AM ; [facility] Maternal history of family history of ca ncer 11/15/2021 Last Documented On 2 10:11AM ; [facility] Maternal history of family history of he art disease 11/15/2021 Last Documented On 2 10:11AM ; [facility] Paternal grandfather's history of family history of heart disease 11/15/2021 Last Documented On 2 10:11AM ; [facility] Diabetes mellitus 12/08/2020 Last Documented On 1 3:29PM ; [facility] Review of Systems Review of Systems not [...] 1 11/15/2021 Complete (Refused - Patient objection) [facility] Last Documented On 2 12:35PM ; [facility] PCV (Pneumovax 23) 1 11/15/2021 Complete (Refused - Patient objection) [facility] Last Documented On 2 12:35PM ; [facility] Td 1 11/15/2021 Complete (Refused - Patient objection) [facility] Last Documented On 2 12:35PM ; [facility] Allergies Includes: Active, inactive, and resolved Allergies No Known Allergies Encounters Includes: Encounters from 08/30/2023 through 08/29/2024 Encounter Provider Location Date Check-In Time Check-Out Time Diagnosis BR[employer]TING Karlos Nunez PA-C [facility] 06/05/19 25 1:55PM 11:59PM NEW PROBLEM/EST PT Karlos Nunez PA-C [facility] 06/05/19 25 1:00PM 1:44PM Overweight Follow Up Karlos Nunez PA-C [facility] 03/06/20 24 12:58PM 1:18PM Overweight Follow Up Karlos Nunez PA-C [facility] 11/29/19 24 1:00PM 1:44PM Overweight Insurance Includes: Active Insurance Policies Plan Name Member ID Group # Subscriber Relationship Effect daksha Dates 1 - [facility]/ JENNIFER [id number] Mela Enriquez Clinical Notes Includes: Signed Clinical Notes starting from 04/21/2022 * Progress note Date Encounter Last Documented by 06/05/2024 NEW PROBLEM/EST PT Last document ed on 06/05/2024; 3:40 PM, Karlos Nunez PA-C; [facility] Active Problems & Conditions - Joint Pain [...] Tablet 30 days, 0 refills - Nystatin [id number] UNIT/ML Mouth/Throat Suspension 14 days, 0 refills [...] documented on 03/06/2024; 4:06 PM, Karlos Mcneil; [facility] Active Problems & Conditions - Joint Pain [...] Tablet 30 days, 0 refills - Nystatin [id number] UNIT/ML Mouth/Throat Suspension 14 days, 0 refills [...] documented on 11/29/2023; 1:34 PM, Karlos Mcneil; [facility] Active Problems & Conditions - Joint Pain [...] Tablet 30 days, 0 refills - Nystatin 565440 UNIT/ML Mouth/Throat Suspension 14 days, 0 refills [...]
--- OUTSIDE RECORDS SUMMARY | 2024-08-29 14:12 | XMS_ITS ---
Care Plan - [facility], [facility] Created on: August 29, 2024 Jimena Nevesline : 1965 Sex: Female Author Organization [facility] , [facility] Address [address] [place] [address] Phone Care Team Providers Care Manager Care Management Name Role Phone PEOPLESDILIP RUANOE Unavailable [phone] Nikunj HA, Jeoy Vieira Unavailable [phone]
== END 2024-08-29 23:59 | disposition home or self-care (01) ==
LOC: RAD 14:10
PROVIDERS: PCP Nurse Practitioner Family; Visit Provider Physician Assistant
DX: M25.561 Pain in right knee (principal)
CPT/HCPCS: 73562

== ENCOUNTER 2024-09-05 10:41 | Outpatient (POV) | payer MEDICARE, SELFPAY ==
--- NOTE | 2024-09-05 11:31 | XR_ITS ---
FINAL REPORT CLINICAL HISTORY: left hip pain COMPARISON: 06/04/2020 FINDINGS: LEFT HIP: Two views of the left hip with an AP view of the pelvis demonstrate no acute fracture or dislocation. The joint spaces are preserved. There are moderate hypertrophic changes at the acetabular margins. The visualized bony structures are well aligned. No soft tissue abnormality is seen. IMPRESSION: Degenerative changes without acute bony abnormality. Reviewed, Interpreted and Dictated by Jason Khalil MD Transcribed by Darlene Fragoso Authenticated and [facility]
--- NOTE | 2024-09-05 11:36 | A.OFFVIS_ITS ---
[facility] Disclaimer: The information contained in this section may have been updated after the patient was seen, as this information can be updated by other users. Medical History (Updated 09/05/24 @ 11:38 by Shabnam Calvin APRN) Low back pain Screening mammogram for breast cancer Right otitis media Lightheadedness Left groin pain Chronic left hip pain Early satiety Epigastric pain Periumbilical abdominal pain Nausea UTI (urinary tract infection) Sprain and strain of left ankle Edema of left foot Left foot pain Peroneal tendinitis of left lower extremity Foot pain Fibromyalgia affecting multiple sites Coccygeal pain Left buttock pain Encounter for wellness examination Acute cystitis without hematuria Cellulitis of left forearm Muscle cramping Dysuria Swelling of lower extremity Dysphagia Screening for osteoporosis Screening for breast cancer Oral candidiasis Acute cough Medicare annual wellness visit, subsequent Screening, deficiency anemia, iron Acute bronchitis Elevated uric acid in blood Elevated C-reactive protein (CRP) Localized swelling of left foot Left leg pain Left leg swelling Low vitamin B12 level Myalgia Arthralgia Esophageal stricture Dyspepsia Fibromyalgia Chronic leg pain Acute viral syndrome Nocturnal hypoxemia Callus of foot Keratosis Daytime somnolence Restless sleeper Plantar fasciitis, right Acute left flank pain Right ankle instability Retrocalcaneal bursitis of both feet Retrocalcaneal exostosis Partial tear of right Achilles tendon Tear of peroneal tendon of right foot Nontraumatic tear of right tibialis posterior tendon STEMI (ST elevation myocardial infarction) Unstable angina pectoris Chest pain Right knee pain Sacroiliitis Left ankle sprain Left ankle pain Left hip pain Bilateral knee pain Fall Hypokalemia Gastroenteritis Shoulder injury Near syncope Encounter for pre-operative cardiovascular clearance Foot neuroma Edema Angina pectoris Normal colonoscopy Myocardial infarction Lung disease Depression CHF (congestive heart failure) Arrhythmia Anxiety Dizziness HTN (hypertension) Coronary artery disease Sinus bradycardia Obesity Abnormal EKG Dyspnea Palpitations GERD (gastroesophageal reflux disease) Hyperlipidemia Surgical History History of total knee replacement Hx of cardiac cath History of arthroscopy of right shoulder H/O arthroscopy of left knee Family History Other Family history of acute congestive heart failure Family history of cancer No significant family history Social History Smoking Status: Current every day smoker tobacco type: cigarettes packs per day: 1 second hand exposure: No alcohol intake: never substance use type: denies use current occupational status: disabled Travel in the last 8 weeks?: None household members: spouse housing: house 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 Patient denies any recent falls or injuries. Patient states the pain is constant and is interfering with her ability perform activities of daily living such as cooking and cleaning. Patient states that it is affecting her sleep even and that she barely got any sleep and was in tears due to the worsening pain. Patient is prescribed Holland 7.5 mg 3 times a day from our office and had previously been given pregabalin 50 mg at bedtime however she states that this was causing increased leg swelling and so she discontinued this. Patient has also been tried on tizanidine and methocarbamol. Her Anatoly has been reviewed and is appropriate. Review of Systems: General: No recent weight changes, no fever, no sleep disturbances Respiratory: No cough, no shortness of air, no recurring pulmonary infections Cardiovascular/peripheral vascular: No chest pain, no palpitations, no edema, no shortness of breath Gastrointestinal: No new onset incontinence, normal bowel movements reported Genitourinary: No new onset incontinence Musculoskeletal: Low back pain, left leg numbness tingling, bilateral hip pain Psychiatric: [Normal mood/affect] Neurological: [Denies weakness in extremities], [denies balance issues] Pain at rest (0-10 scale): 10 Objective Objective:: Physical Exam: General: Alert and oriented x3, no acute distress, pleasant and cooperative Lungs: Respirations even and unlabored, symmetrical chest expansion Eyes: PERRL Musculoskeletal: Flexion and extension of lumbar [spine] somewhat guarded second mimi to pain, [antalgic gait noted] positive leg raise, extreme point tenderness along bilateral greater trochanteric bursa's Neurological: Speech clear, no gross sensory deficit Has patient had previous pain injection?: No Conservative treatment options previously tried: Home exercise plan Length of treatment: Longer than 12 weeks Meds Home Medications and Allergies Home Medications ?Medication ?Instructions ?Recorded ?Confirmed ?Type ipratropium 0.5 mg-albuterol 3 mg 3 ml inhalation Q4-6H PRN 01/23/24 08/29/24 Rx (2.5 mg base)/3 mL nebulization shortness of breath or wheezing soln #90 mL aspirin 81 mg capsule 81 mg PO DAILY 04/19/24 08/29/24 History esomeprazole magnesium 40 mg See Rx Instructions .Route 05/24/24 08/29/24 Rx capsule,delayed release .COMPLEX #30 caps tizanidine 6 mg capsule 6 mg PO Q8H PRN muscle spasticity 05/24/24 08/29/24 Rx #90 caps evolocumab 140 mg/mL subcutaneous 140 mg SQ Q2W #3 mL 06/24/24 08/29/24 Rx syringe (Repatha Syringe) metoprolol succinate 25 mg See Rx Instructions .Route 06/27/24 08/29/24 Rx tablet,extended release 24 hr .COMPLEX #45 tabs famotidine 20 mg tablet 20 mg PO DAILY 90 days #90 tabs 06/28/24 08/29/24 Rx ropinirole 1 mg tablet See Rx Instructions .Route 06/28/24 08/29/24 Rx .COMPLEX 90 days #90 tabs spironolactone 25 mg tablet 25 mg PO DAILY #90 tabs 07/16/24 08/29/24 Rx hydrocodone 7.5 mg-acetaminophen 1 tab PO QID #120 tabs 07/24/24 08/29/24 Rx 325 mg tablet venlafaxine 37.5 mg 37.5 mg PO DAILY 07/30/24 08/29/24 History capsule,extended release 24 hr prasugrel HCl 10 mg tablet 10 mg PO DAILY #36 tabs 08/05/24 08/29/24 Rx (Effient) budesonide-formoterol HFA 160 See Rx Instructions .Route 08/07/24 08/29/24 Rx mcg-4.5 mcg/actuation aerosol .COMPLEX #10.2 grams inhaler (Symbicort) New Prescriptions to Start Prescriptions: Allergies Allergy/AdvReac Type Severity Reaction Status Date / Time clopidogrel (From Plavix) Allergy Severe NON Verified 08/29/24 14:33 RESPONDER-STENT THROMBOSIS atorvastatin AdvReac Intermediate Abdominal Verified 08/29/24 14:33 Pain rosuvastatin (From Crestor) AdvReac Mild myalgia Verified 08/29/24 14:33 Assessment and Plan *Assessment and plan (1) Greater trochanteric bursitis of both hips: Status: Acute Category: Medical Code(s): M70.61 - Trochanteric bursitis, right hip; M70.62 - Trochanteric bursitis, left hip (2) Low back pain: Status: Acute Category: Medical Code(s): M54.50 - Low back pain, unspecified (3) Lumbar radiculopathy: Status: Acute Category: Medical Code(s): M54.16 - Radiculopathy, lumbar region Plan Patient is experiencing worsening pain in her low back with numbness and tingling into her lower extremities. Patient did have limited range of motion of her lumbar spine with a positive leg raise. I did discuss with patient that I do believe they would benefit from a lumbar epidural steroid injection. Risk and benefits were discussed with patient and the patient would like to proceed forward with this plan of care. Patient is currently on Effient written by Dr. Donnelly office. I did discuss with patient that we will reach out to this provider to confirm if she can stop this medication prior to this injection. Patient was put on this recently due to a cardiac stent placed in July. I did discuss with the patient due to this being new or that there is a chance that he will not want her to come off this medication and if he denies being able to stop this medication we can proceed forward with the bilateral greater trochanteric bursa injections. Patient did have extreme point tenderness during today's visit. Patient agrees with this plan of care. Patient has tried and failed conservative therapy including continued at home stretching exercise for longer than 12 weeks. Patient has had chronic back pain for years. I will also adjust her medication to Holland 10 mg 3 times a day and send in a prescription of Flexeril 10 mg 3 times daily as needed. We will schedule the patient for an LESI L4-L5 under fluoroscopy. Patient has been instructed to contact the clinic with any concerns before the next appointment. Dr. Savage has reviewed this note and agrees with this plan of care. This note was dictated using voice recognition software and make contain errors or omissions. All injections are used with Lidocaine, Bupivacaine and Depo Medrol. Occasionally urine drug screen is needed to verify patient's compliance with our office pain contract. This is ordered based off specific treatments related to chronic pain with the potential to abuse certain medications.
[2024-09-05 12:21] VITALS: BP 115/64; PULSE 74; RESP 18; O2SAT 95; BMI 42.7
== END 2024-09-05 23:59 | disposition home or self-care (01) ==
PROVIDERS: PCP Nurse Practitioner Family; Visit Provider Nurse Practitioner Family
DX: M70.61 Trochanteric bursitis, right hip (principal); M70.62 Trochanteric bursitis, left hip; M54.50 Low back pain, unspecified; M54.16 Radiculopathy, lumbar region; F17.210 Nicotine dependence, cigarettes, uncomplicated; Z73.89 Other problems related to life management difficulty; Z79.02 Long term (current) use of antithrombotics/antiplatelets
CPT/HCPCS: 73502; 99212; G0463

== ENCOUNTER 2024-09-16 15:51 | Outpatient (CLI) | payer MEDICARE, SELFPAY ==
[2024-09-16 16:31] LABS: Basophils # 0.1 K/mm3 (0-0.2); Basophils % 0.6 % (0.1-2.0); Eosinophils # 0.1 Kmm3 (0.0-0.4); Eosinophils % 0.9 % (0.1-12.0); Hematocrit 43.2 % (37.0-47.0); Hemoglobin 14.8 g/dL (12.2-16.2); Immature Granulocytes # 0.06 10^3uL; Immature Granulocytes % 0.4 %; Lymphocytes # 3.9 K/mm3 (0.7-4.5); Lymphocytes % 27.8 % (10-50); Mean Corpuscular HGB Conc 34.3 g/dL (31.8-35.4); Mean Corpuscular Hemoglobin 30.6 pg (27.0-31.2); Mean Corpuscular Volume 89.3 fl (81-99); Mean Platelet Volume 10.4 fl (7.4-10.4); Monocytes # 0.9 K/mm3 (0.1-1.0); Monocytes % 6.6 % (1.7-9.3); Neutrophils # 8.9 K/mm3 (1.8-7.8); Neutrophils % 63.7 % (37.0-80.0); Nucleated Red Blood Cells # 0 10^3/uL; Nucleated Red Blood Cells % 0 %; Platelet Count 267 K/mm3 (142-424); Red Blood Count 4.84 M/mm3 (4.20-5.40); Red Cell Distribution Width 12.5 % (11.5-17.5); Red Cell Distribution Width-SD 41.1 fL
[2024-09-16 17:47] LABS: Chloride 105 mmol/L (98-107); Potassium 4.6 mmoL/L (3.5-5.1); Sodium 136 mmol/L (136-145)
[2024-09-16 17:50] LABS: Anion Gap 9.6 mEq/L (5-15); Blood Urea Nitrogen 27 mg/dl (7-17); Calcium 9.2 mg/dl (8.4-10.2); Carbon Dioxide 26 mmol/L (22.0-30.0); Estimated Glomerular Filt Rate 36 ml/min (>60); GFR (African American) 43 ML/MIN (>60); Glucose 100 mg/dl (74-100)
== END 2024-09-16 23:59 | disposition home or self-care (01) ==
LOC: LAB 15:51
PROVIDERS: PCP Nurse Practitioner Family; Visit Provider Nurse Practitioner
DX: I11.0 Hypertensive heart disease with heart failure (principal); I50.9 Heart failure, unspecified; E78.5 Hyperlipidemia, unspecified; R53.83 Other fatigue; F17.210 Nicotine dependence, cigarettes, uncomplicated
CPT/HCPCS: 36415; 80048; 85025

== ENCOUNTER 2024-09-18 10:51 | Outpatient (RCR) | payer MEDICARE, SELFPAY ==
--- NOTE | 2024-09-18 15:37 | HMH.PTOPEV ---
PT Outpatient Evaluation Rehab PT Outpatient Evaluation Start: 09/18/24 10:58 Freq: Status: Active Protocol: Document 09/18/24 10:58 YAMILETH (Rec: 09/18/24 15:37 YAMILETH [id number]) E-signed By Shabnam Ring, PT Outpatient Therapy Subjective History Subjective History Pt is a 58 y/o female who reports chronic left hip pain with onset ~5 years ago after having her L knee replaced ~6 years ago. Pt reports she had a EMG/NCV performed 2-3 months ago at [facility] and per pt was told she has 70-80% nerve damage of the left posterior leg, states she was in TKA surgery for 7 hours. Pt reports persistent L posterior hip pain that radiates to the left lateral leg to her knee. Pt reports numbness of the lateral knee incision that has been present since surgery, denies other paresthesia or b/b dysfunction . Pt reports weakness of the L leg as well resulting in difficulty with ADLs and fatigue. Pt reports pain is aggravated by laying on the left side, rolling over in bed , climbing stairs, prolonged walking, prolonged standing, donning shoes/socks and getting up from a chair after prolonged sitting. Pt had a L hip xray on 09/05/24 with impression of Degenerative changes without acute bony abnormality. Pt reports she had a lumbar spine MRI on 08/31 with impression of Significant facet arthropathy of the lower lumbar spine with minimal degenerative canal stenosis at L4-5. Pt states she is currently seeing a neurosurgeon in [place] for her back and is scheduled to have another lumbar spine MRI on October 06. Pt reports she has had multiple injections in her low back without improvement in symptoms; however, had an injection in her L hip on 09/05 with improvement in symptoms. Pt reports she is taking prescribed Hydrocodone and Flexeril as needed which assists with her pain. Medical History: Asthma, Depression, CHF (congestive heart failure), Arrhythmia, Anxiety, HTN (hypertension), Coronary artery disease, Sinus bradycardia, Obesity, GERD, Fibromyalgia + slump test LLE New diagnosis of cancer in past 12 No months? Chief Complaint Pain Symptom Type Ache,Dull Symptoms Relieved By Heat,Prescription Meds Symptoms Aggravated By Standing,Bending/Stooping, Physical Activity,Walking, Lifting Current Functional Limitations Lifting,Housework,Dressing, Sleeping,Standing,Squatting, Walking,Stairs,Bending/ Stooping Symptom Description Constant but Variable Level of pain today (0-10) 7 Pain scale - at its best (0-10) 6 Pain scale - at its worst (0-10) 10 Lumbopelvic Eval Accessory Movement L-spine Vertebrae Accessory Movements Central [facility] [place] that Elicit Symptoms L3 bilateral L4 bilateral L5 bilateral S1 bilateral Range of Motion Lumbar Spine Active Flexion Range of 80 Motion (degrees) Lumbar Spine Active Extension Range of 10 Motion (degrees) Left Lumbar Spine Lateral Flexion Active 10 Range of Motion (degrees) Right Lumbar Spine Lateral Flexion 10 Active Range of Motion (degrees) Hip/Knee Eval Gait Observation General Gait Pattern Observation Antalgic Gait Assistive Device Assistive Devices None / NA Palpation Tenderness left Knee Palpation Finding Tenderness Knee Palpation Overall Comment 3/4 TTP of glute med/min, piriformis, TFL, greater trochanter, ITB MMT Hip Flexion Strength Grade 4- Good- Hip Abduction Strength Grade 4- Good- Hip Adduction Strength Grade 4- Good- Hip Extension Strength Grade 4- Good- Hip External Rotation Strength Grade 4 Good Knee Extension Strength Grade 4 Good Knee Flexion Strength Grade 4 Good Lower Extremity Functional Index Activities Today, do you or would you have any difficulty at all with: a.Any of your usual work, housework or Moderate difficulty school activities b. Your usual hobbies, recreational or Quite a bit of difficulty sporting activities c. Getting into or out of the bath A little bit of difficulty d. Walking between rooms Moderate difficulty e. Putting on your shoes or socks Quite a bit of difficulty f. Squatting Extreme difficulty or unable to perform activity g. Lifting an object, like a bag of No difficulty groceries from the floor h. Performing light activities around A little bit of difficulty your home i. Performing heavy activities around Quite a bit of difficulty your home j. Getting into or out of a car A little bit of difficulty k. Walking 2 blocks Quite a bit of difficulty l. Walking a mile Extreme difficulty or unable to perform activity m. Going up or down 10 stairs (about 1 Extreme difficulty or unable flight of stairs) to perform activity n. Standing for 1 hour Extreme difficulty or unable to perform activity o. Sitting for 1 hour A little bit of difficulty p. Running on even ground Extreme difficulty or unable to perform activity q. Running on uneven ground Extreme difficulty or unable to perform activity r. Making sharp turns while running fast Extreme difficulty or unable to perform activity s. Hopping Extreme difficulty or unable to perform activity t. Rolling over in bed Quite a bit of difficulty LEFI Score Lower Extremity Functional Index Score 25 Outpatient Therapy Assessment Impairments Problems/Impairmments Palpation Tenderness,Impaired Range of Motion,Impaired Strength,Impaired Transfers, Impaired Gait Pattern,Impaired Walking,Impaired Standing, Impaired Household Care, Impaired Stair Climbing, Impaired Incline Stepping, Impaired Squatting,Impaired Bending,Subjective C/O Pain, Impaired Self Care/Self Management Prognosis Rehab Potential Good Comment barriers to progress include chronic pain following nerve damage after TKA 6 years ago Clinical Impression Consistent with Diagnosis Yes Additional details: also LBP Short Term Goals Number of Weeks 3 Improve Ability to Dress Self Yes: don shoes/socks I with pain <8/10 to decrease burden of care Improve LEFI Score Yes: Improve score to 35/80 to improve overall QOL Decrease Subjective C/O Pain Yes: Improve pain at worst to 8/10 to improve overall QOL Improve Self Care/Self Management Yes Patient to be Ind w/ HEP Yes Piling Cutter Goals Number of Weeks 6 Decreased Palpation Tenderness Yes: 1/4 TTP of L hip complex Increase Range of Motion Yes: Improve lumbar ext AROM to at least 15 Increase Strength Yes: Improve LLE MMT to 4-4+/5 grossly to assist with function Improve Ability to Climb Stairs Yes: 1 flight with HR with pain 6/10 or less to assist with community navigation Improve LEFI Score Yes: Improve score to 45/80 to improve overall QOL Decrease Subjective C/O Pain Yes: Improve pain at worst to 6/10 to improve overall QOL Outpatient Therapy Plan of Care Treatment Plan May Include Therapeutic Exercise Including Home Yes Exercise Program Manual Therapy Techniques Yes Neuromuscular Re-education Yes Therapeutic Activities to Return to Yes Previous Functional/Work Level Gait Training Yes ADL/Self Care Education Yes Mechanical Traction Yes Dry Needling Yes Thermal Modalities Yes Electrical Stimulation Yes Ultrasound/Phonophoresis Yes Iontophoresis Yes Massage Yes Group Therapy for Medicare Yes Eval/Re-Eval Yes Aquatic Therapy Yes Frequency Times per week 2 Duration Number of Weeks 4-6 Addendums This patient is a candidate for social No or vocational rehab? Patient/Guardian verbally acknowledges Yes understanding of treatment program and consents to further treatment? Patient/Guardian verbally acknowledges Yes understanding of diagnosis, prognosis and goals for treatment? Shoulder/Elbow Eval Shoulder Objective Measurements Elbow Objective Measurements PHYSICIAN CERTIFICATION: I certify the specified therapy services for Mela Carmona are required, authorized, and reviewed every 30 days.
== END 2024-09-18 23:59 | disposition home or self-care (01) ==
LOC: PT 10:51
PROVIDERS: PCP Nurse Practitioner Family; Visit Provider Physician Assistant
DX: M70.62 Trochanteric bursitis, left hip (principal)
CPT/HCPCS: 97110; 97163

== ENCOUNTER 2024-09-20 15:55 | Outpatient (CLI) | payer MEDICARE, SELFPAY ==
--- NOTE | 2024-09-20 16:10 | XR_ITS ---
FINAL REPORT TECHNIQUE: Chest PA & Lateral CLINICAL HISTORY: Shortness of breath on exertion, edema, lifetime smoker COMPARISON: 01/25/2024 FINDINGS: 2 views of the chest were performed. The heart size is normal. The patient is status post median sternotomy. The mediastinum is otherwise within normal limits. The lungs are clear. There are no pleural effusions. There is no pneumothorax. The bony thorax appears intact. IMPRESSION: No acute cardiopulmonary process. Reviewed, Interpreted and Dictated by Jason Khalil MD Transcribed by Elvira Vincent Authenticated and [facility]
[2024-09-20 16:19] LABS: Basophils # 0.1 K/mm3 (0-0.2); Basophils % 0.6 % (0.1-2.0); Eosinophils # 0.1 Kmm3 (0.0-0.4); Eosinophils % 0.9 % (0.1-12.0); Hematocrit 41.9 % (37.0-47.0); Hemoglobin 13.9 g/dL (12.2-16.2); Immature Granulocytes # 0.04 10^3uL; Immature Granulocytes % 0.3 %; Lymphocytes # 3.5 K/mm3 (0.7-4.5); Lymphocytes % 28.9 % (10-50); Mean Corpuscular HGB Conc 33.2 g/dL (31.8-35.4); Mean Corpuscular Volume 90.5 fl (81-99); Mean Platelet Volume 10.1 fl (7.4-10.4); Monocytes # 0.7 K/mm3 (0.1-1.0); Monocytes % 5.7 % (1.7-9.3); Neutrophils # 7.8 K/mm3 (1.8-7.8); Neutrophils % 63.6 % (37.0-80.0); Nucleated Red Blood Cells # 0 10^3/uL; Nucleated Red Blood Cells % 0 %; Platelet Count 275 K/mm3 (142-424); Red Blood Count 4.63 M/mm3 (4.20-5.40); Red Cell Distribution Width 12.8 % (11.5-17.5); Red Cell Distribution Width-SD 42.2 fL; White Blood Count 12.2 K/mm3 (4.8-10.8)
[2024-09-20 16:25] LABS: Alanine Aminotransferase 20 U/L (12-78); Albumin Level 4.5 g/dl (3.5-5.0); Albumin/Globulin Ratio 1.6 (1.1-1.8); Alkaline Phosphatase 63 U/L (38-126); Anion Gap 8.8 mEq/L (5-15); Aspartate Amino Transferase 29 U/L (14-36); Bilirubin,Total 0.4 mg/dl (0.2-1.3); Blood Urea Nitrogen 22 mg/dl (7-17); Calcium 9.3 mg/dl (8.4-10.2); Carbon Dioxide 29 mmol/L (22.0-30.0); Chloride 102 mmol/L (98-107); Estimated Glomerular Filt Rate 74 ml/min (>60); GFR (African American) 89 ML/MIN (>60); Globulin 2.8 g/dL (1.3-3.2); Glucose 71 mg/dl (74-100); Magnesium 2.1 mg/dl (1.6-2.3); Potassium 3.8 mmoL/L (3.5-5.1); Sodium 136 mmol/L (136-145); Total Protein,Serum 7.3 g/dl (6.3-8.2)
[2024-09-20 16:29] LABS: D-Dimer 0.69 ug/mL (0.0-0.5)
[2024-09-20 16:45] LABS: Troponin I < 0.01 ng/ml (0.00-0.034)
[2024-09-20 16:57] LABS: Thyroid Stimulating Hormone 0.87 uIU/mL (0.465-4.68)
[2024-09-20 18:41] LABS: NT Pro Brain Natriuretic Pep. 452 pg/mL (0-125)
== END 2024-09-20 23:59 | disposition home or self-care (01) ==
LOC: LAB 15:56
PROVIDERS: PCP Nurse Practitioner Family; Visit Provider Nurse Practitioner Family
DX: I11.9 Hypertensive heart disease without heart failure (principal); I25.10 Atherosclerotic heart disease of native coronary artery without angina pectoris; R06.09 Other forms of dyspnea; R60.0 Localized edema; F17.210 Nicotine dependence, cigarettes, uncomplicated
CPT/HCPCS: 36415; 71046; 80053; 83735; 83880; 84443; 84484; 85025; 85378

== ENCOUNTER 2024-09-24 14:49 | Outpatient (CLI) | payer MEDICARE, SELFPAY ==
--- NOTE | 2024-09-24 15:00 | CT_ITS ---
FINAL REPORT TECHNIQUE: Postcontrast axial images of the chest were performed in a CTA protocol. This study was performed with techniques to keep radiation doses as low as reasonably achievable, (ALARA). Individualized dose reduction technique using automated exposure control or adjustment of mA and/or kV according to the patient's size were employed. CLINICAL HISTORY: elevated d-dimer COMPARISON: 03/13/2022 FINDINGS: The heart is normal in size. No adenopathy is identified. No pleural or pericardial effusion is identified. The thoracic aorta is normal in caliber with no focal aneurysm or dissection identified. There is no filling defect to suggest pulmonary embolism. No lung infiltrate or mass is identified. There is mild scarring in the anterior right midlung. The images of the upper abdomen are unremarkable. IMPRESSION: No evidence for PE on this exam. Reviewed, Interpreted and Dictated by Eyal Quinones MD Transcribed by Lanny Drew Authenticated and [facility]
[2024-09-24] MEDS: SODIUM CHLORIDE 0.9% 10ML SYR (RAD ONLY) 10 ML IV (15:52)
[2024-09-24] MEDS: 0.9 % SODIUM CHLORIDE 50 ML VIAL IV (15:52)
[2024-09-24] MEDS: IOPAMIDOL-370 (76%);100ML BOTTLE 85 ML IV (15:52)
== END 2024-09-24 23:59 | disposition home or self-care (01) ==
LOC: RAD 14:50
PROVIDERS: PCP Nurse Practitioner Family; Visit Provider Nurse Practitioner Family
DX: R79.89 Other specified abnormal findings of blood chemistry (principal); R06.09 Other forms of dyspnea
CPT/HCPCS: 71275; Q9967

== ENCOUNTER 2024-09-27 13:16 | Outpatient (CLI) | payer MEDICARE, SELFPAY ==
--- NOTE | 2024-09-27 | CA_ITS ---
APPROVED REPORT EXAM: Comprehensive 2D, Doppler, and color-flow Echocardiogram Medical Intern: Lizzy Moralez, RCS, RVS Ht: 5 ft 6 in Wt: 282lbs BSA: 2.31 BP: 129/56 mmHg Indications: SOA, EVAN, CAD, Smoker, Edema, Coronary stent 07/2024 2D Dimensions IVSd 0.96 cm F: 0.6-1.0 LVEF (Visual) 49.90 % PWd 0.99 cm F: 0.6 - 1.0 LA Volume 75.20 mL LVDd 5.04 cm F: 3.9 - 5.3 LA Volume Index [id number] mL/m2 (M/F) 16-34 LVDs 3.76 cm F: 2.2 - 3.5 Left Atrium 3.83 cm F: 2.7 - 3.8 M-Mode Dimensions RVDd 1.36 cm (0.9-2.6) LA Diam 4.34 cm (1.9-4.0) LVDd 5.53 cm (3.5-5.7) LVDs 3.65 cm (3.5-5.7) IVSd 1.18 cm (0.6-1.1) PWd 1.11 cm (0.6-1.1) EF (Teich) 58.00% EPSs 0.57 cm FS 30.90% EDV (Teich) 134.20 mL TAPSE 2.43 (<1.7) ESV (Teich) 56.30 mL LV Diastology E Decel Time 390 (160-240 msec) E/A Ratio 1.47 MED A' 13.30 cm/s LAT A' 10.20 cm/s Aortic Valve VALARIE Index 1.18 cm2/m2 AoV Peak Kong. 138.0 (50-130 cm/s) AO Peak GR. 7.60 mmHg AO Mean GR. 4.10 (<5 mmHg) AO VTI 28.0 (18-25 cm) VALARIE (VTI) 2.80 (2.5-4.5 cm2) Mitral Valve MV A Velocity 40.0 (40-130 cm/s) E/A Ratio 1.47 Tricuspid Valve TR P. Velocity 208.00 cm/s RAP Estimate 10.00 mmHg RVSP 27.20 mmHg Left Ventricle The left ventricle is normal size. The left ventricular systolic function is normal. The left ventricular ejection fraction is within the normal range. There is normal left ventricular wall thickness. There is normal LV segmental wall motion. The left ventricular diastolic function is normal. LVEF is 55%. Right Ventricle The right ventricle is normal size. The right ventricular systolic function is normal. Atria The left atrium is mildly dilated. Right atrium is mildly dilated. There is no Doppler evidence of interatrial shunt. Aortic Valve The aortic valve opens well. There is no aortic valvular stenosis. No aortic regurgitation is present. Mitral Valve The mitral valve is normal in structure. No evidence of mitral valve stenosis. Trace mitral regurgitation. Tricuspid Valve Tricuspid valve is grossly normal in structure and function. Trace tricuspid regurgitation. There is insufficient TR jet to estimate RVSP. Pulmonic Valve The pulmonary valve is normal in structure. Trace pulmonic regurgitation. Great Vessels The aortic root is normal in size. IVC is normal in size and collapses >50% with inspiration. Pericardium There is no pericardial effusion. Other Information Study Quality: Fair Conclusion Normal biventricular systolic function. Mild biatrial dilation. No significant valvular stenosis or regurgitation. Electronically signed by : Kacie Witt MD 10/06/2024 22:29:22
== END 2024-09-27 23:59 | disposition home or self-care (01) ==
LOC: RT 13:17
PROVIDERS: PCP Nurse Practitioner Family; Visit Provider Nurse Practitioner
DX: I11.9 Hypertensive heart disease without heart failure (principal); I25.10 Atherosclerotic heart disease of native coronary artery without angina pectoris; G47.33 Obstructive sleep apnea (adult) (pediatric); F17.200 Nicotine dependence, unspecified, uncomplicated; Z95.818 Presence of other cardiac implants and grafts
CPT/HCPCS: 93306

== ENCOUNTER 2024-10-04 12:55 | Outpatient (CLI) | payer MEDICARE, SELFPAY ==
[2024-10-04 14:18] LABS: Basophils # 0.1 K/mm3 (0-0.2); Eosinophils # 0.1 Kmm3 (0.0-0.4); Eosinophils % 1.2 % (0.1-12.0); Hematocrit 41.7 % (37.0-47.0); Hemoglobin 14.3 g/dL (12.2-16.2); Immature Granulocytes # 0.02 10^3uL; Immature Granulocytes % 0.2 %; Lymphocytes # 3.5 K/mm3 (0.7-4.5); Lymphocytes % 37.5 % (10-50); Mean Corpuscular HGB Conc 34.3 g/dL (31.8-35.4); Mean Corpuscular Hemoglobin 30.5 pg (27.0-31.2); Mean Corpuscular Volume 88.9 fl (81-99); Mean Platelet Volume 10.5 fl (7.4-10.4); Monocytes # 0.6 K/mm3 (0.1-1.0); Neutrophils % 54.1 % (37.0-80.0); Nucleated Red Blood Cells # 0 10^3/uL; Nucleated Red Blood Cells % 0 %; Platelet Count 256 K/mm3 (142-424); Red Blood Count 4.69 M/mm3 (4.20-5.40); Red Cell Distribution Width 12.5 % (11.5-17.5); Red Cell Distribution Width-SD 40.4 fL; White Blood Count 9.3 K/mm3 (4.8-10.8)
[2024-10-04 14:33] LABS: Hemoglobin A1C 5.3 % (4.0-6.0)
[2024-10-04 14:41] LABS: Alanine Aminotransferase 19 U/L (12-78); Albumin Level 4.3 g/dl (3.5-5.0); Alkaline Phosphatase 67 U/L (38-126); Anion Gap 12.3 mEq/L (5-15); Aspartate Amino Transferase 28 U/L (14-36); Bilirubin,Direct 0.2 mg/dl (0.0-0.4); Bilirubin,Indirect 0.4 mg/dL (0.0-0.9); Bilirubin,Total 0.6 mg/dl (0.2-1.3); Bilirubin,Unconjugated 0.4 mg/dL (0.0-1.1); Blood Urea Nitrogen 22 mg/dl (7-17); Calcium 9.1 mg/dl (8.4-10.2); Carbon Dioxide 27 mmol/L (22.0-30.0); Chloride 103 mmol/L (98-107); Chol/HDL Ratio 3.8 (1-3.5); Cholesterol 267 mg/dl (140-200); Estimated Glomerular Filt Rate 65 ml/min (>60); GFR (African American) 78 ML/MIN (>60); Glucose 90 mg/dl (74-100); HDL Cholesterol 71 mg/dl (40-60); Potassium 4.3 mmoL/L (3.5-5.1); Sodium 138 mmol/L (136-145); Total Protein,Serum 6.7 g/dl (6.3-8.2); Triglycerides 123 mg/dl (30-150); VLDL Cholesterol 25 mg/dL (0-40)
[2024-10-04 14:52] LABS: Direct LDL Cholesterol 161.27 mg/dL (100-129)
[2024-10-04 14:58] LABS: Free T4 (Free Thyroxine) 1.29 ng/dl (0.78-2.19)
[2024-10-04 15:12] LABS: Thyroid Stimulating Hormone 2.55 uIU/mL (0.465-4.68)
== END 2024-10-04 23:59 | disposition home or self-care (01) ==
LOC: LAB 12:55
PROVIDERS: PCP Nurse Practitioner Family; Visit Provider Nurse Practitioner
DX: I25.10 Atherosclerotic heart disease of native coronary artery without angina pectoris (principal); I10 Essential (primary) hypertension; R06.02 Shortness of breath; R60.0 Localized edema; R53.83 Other fatigue; E16.2 Hypoglycemia, unspecified
CPT/HCPCS: 36415; 80048; 80061; 80076; 83036; 84439; 84443; 85025

== ENCOUNTER 2024-10-08 15:02 | Outpatient (POV) | payer MEDICARE, SELFPAY ==
[2024-10-08 15:25] VITALS: BP 114/68; PULSE 60; RESP 14; O2SAT 100; BMI 41.9
--- NOTE | 2024-10-08 15:25 | EXP.PAIN.SOA ---
[facility] Disclaimer: The information contained in this section may have been updated after the patient was seen, as this information can be updated by other users. Medical History Localized edema SOB (shortness of breath) Muscle cramping Edema Low back pain Screening mammogram for breast cancer Right otitis media Lightheadedness Left groin pain Chronic left hip pain Early satiety Epigastric pain Periumbilical abdominal pain Nausea UTI (urinary tract infection) Sprain and strain of left ankle Edema of left foot Left foot pain Peroneal tendinitis of left lower extremity Foot pain Fibromyalgia affecting multiple sites Coccygeal pain Left buttock pain Encounter for wellness examination Acute cystitis without hematuria Cellulitis of left forearm Dysuria Swelling of lower extremity Dysphagia Screening for osteoporosis Screening for breast cancer Oral candidiasis Acute cough Medicare annual wellness visit, subsequent Screening, deficiency anemia, iron Acute bronchitis Elevated uric acid in blood Elevated C-reactive protein (CRP) Localized swelling of left foot Left leg pain Left leg swelling Low vitamin B12 level Myalgia Arthralgia Esophageal stricture Dyspepsia Fibromyalgia Chronic leg pain Acute viral syndrome Nocturnal hypoxemia Callus of foot Keratosis Daytime somnolence Restless sleeper Plantar fasciitis, right Acute left flank pain Right ankle instability Retrocalcaneal bursitis of both feet Retrocalcaneal exostosis Partial tear of right Achilles tendon Tear of peroneal tendon of right foot Nontraumatic tear of right tibialis posterior tendon STEMI (ST elevation myocardial infarction) Unstable angina pectoris Chest pain Right knee pain Sacroiliitis Left ankle sprain Left ankle pain Left hip pain Bilateral knee pain Fall Hypokalemia Gastroenteritis Shoulder injury Near syncope Encounter for pre-operative cardiovascular clearance Foot neuroma Angina pectoris Normal colonoscopy Myocardial infarction Lung disease Depression CHF (congestive heart failure) Arrhythmia Anxiety Dizziness HTN (hypertension) Coronary artery disease Sinus bradycardia Obesity Abnormal EKG Dyspnea Palpitations GERD (gastroesophageal reflux disease) Hyperlipidemia Surgical History History of total knee replacement Hx of cardiac cath History of arthroscopy of right shoulder H/O arthroscopy of left knee Family History Other Family history of acute congestive heart failure Family history of cancer No significant family history Social History Smoking Status: Current every day smoker tobacco type: cigarettes packs per day: 1 second hand exposure: No alcohol intake: never substance use type: denies use current occupational status: other Travel in the last 8 weeks?: None household members: spouse housing: house 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 Today she rates her pain as 7 out of 10. She denies any new trauma or injury. She states she is still having quite a bit of issues with the leg swelling and chronic pain throughout her back and hips. Patient was previously scheduled for a lumbar epidural however due to her recent stent placement in July her senior software systems engineer would not let her come off this medication. Patient does state that she is still having severe pain and it is interfering with her ability perform activities of daily living such as cooking and cleaning. Patient is still interested in any options we may be able to provide. Anatoly has been reviewed and is appropriate. Patient is currently managed with Bristow 7.5 mg 3 times a day and Flexeril 10 mg 3 times a day. She does not need refills on the Flexeril as she takes this as needed. Review of Systems: General: No recent weight changes, no fever, no sleep disturbances Respiratory: No cough, no shortness of air, no recurring pulmonary infections Cardiovascular/peripheral vascular: No chest pain, no palpitations, no edema, no shortness of breath Gastrointestinal: No new onset incontinence, normal bowel movements reported Genitourinary: No new onset incontinence Musculoskeletal: Bilateral hip pain, low back pain Psychiatric: [Normal mood/affect] Neurological: [Denies weakness in extremities], [denies balance issues] Pain at rest (0-10 scale): 7 Objective Objective:: Physical Exam: General: Alert and oriented x3, no acute distress, pleasant and cooperative Lungs: Respirations even and unlabored, symmetrical chest expansion Eyes: PERRL Musculoskeletal: Flexion and extension of lumbar [spine] somewhat guarded secondary to pain, [antalgic gait noted] point tenderness along bilateral greater trochanteric bursa's Neurological: Speech clear, no gross sensory deficit Has patient had previous pain injection?: No Conservative treatment options previously tried: Home exercise plan Length of treatment: Longer than 12 weeks Meds Home Medications and Allergies Home Medications ?Medication ?Instructions ?Recorded ?Confirmed ?Type ipratropium 0.5 mg-albuterol 3 mg 3 ml inhalation Q4-6H PRN 01/23/24 10/08/24 Rx (2.5 mg base)/3 mL nebulization shortness of breath or wheezing soln #90 mL aspirin 81 mg capsule 81 mg PO DAILY 04/19/24 10/08/24 History esomeprazole magnesium 40 mg See Rx Instructions .Route 05/24/24 10/08/24 Rx capsule,delayed release .COMPLEX #30 caps metoprolol succinate 25 mg See Rx Instructions .Route 06/27/24 10/08/24 Rx tablet,extended release 24 hr .COMPLEX #45 tabs prasugrel HCl 10 mg tablet 10 mg PO DAILY #36 tabs 08/05/24 10/08/24 Rx (Effient) cyclobenzaprine 10 mg tablet 10 mg PO TID #42 tabs 09/05/24 10/08/24 Rx hydrocodone 10 mg-acetaminophen 1 tab PO TID #90 tabs 09/05/24 10/08/24 Rx 325 mg tablet budesonide-formoterol HFA 160 See Rx Instructions .Route 09/16/24 10/08/24 Rx mcg-4.5 mcg/actuation aerosol .COMPLEX #10.2 grams inhaler (Symbicort) clotrimazole 10 mg jerad 10 mg mucous membrane 5XD 14 days 09/16/24 10/08/24 Rx #70 tabs potassium chloride 10 mEq 10 meq PO BID PRN with furosemide 09/20/24 10/08/24 Rx capsule,extended release #60 caps famotidine 20 mg tablet See Rx Instructions .Route 09/23/24 10/08/24 Rx .COMPLEX #100 tabs ropinirole 1 mg tablet See Rx Instructions .Route 09/23/24 10/08/24 Rx .COMPLEX #100 tabs furosemide 40 mg tablet 40 mg PO BID edema #60 tabs 09/26/24 10/08/24 Rx rosuvastatin 10 mg tablet (Crestor) 10 mg PO DAILY #30 tabs 10/08/24 10/08/24 Rx New Prescriptions to Start Prescriptions: Allergies Allergy/AdvReac Type Severity Reaction Status Date / Time clopidogrel (From Plavix) Allergy Severe NON Verified 10/08/24 13:18 RESPONDER-STENT THROMBOSIS atorvastatin AdvReac Intermediate Abdominal Verified 10/08/24 13:18 Pain rosuvastatin (From Crestor) AdvReac Mild myalgia Verified 10/08/24 13:18 Assessment and Plan *Assessment and plan (1) Greater trochanteric bursitis of both hips: Status: Acute Category: Medical Code(s): M70.61 - Trochanteric bursitis, right hip; M70.62 - Trochanteric bursitis, left hip Plan Patient is experiencing worsening pain in her bilateral greater trochanteric bursa's with limited range of motion. We had discussed these injections at her last appointment and she would still like to proceed forward with these options. Patient was counseled that we would not have to stop her blood thinners with these types of injections. Risk and benefits were reviewed and she would like to move forward with this. Patient has tried and failed conservative therapy including oral medication, heat and ice, topicals, at home stretching exercise for longer than 12 weeks. Patient has had chronic hip pain for longer than 6 months. Patient does state that she has seen orthopedics in [place] and they are having an updated MRI done. Patient is stating that she will send a copy to our office. Patient will be refilled on her [place] with a 1 month supply and we will schedule her for bilateral greater trochanteric bursa injections under fluoroscopy. Patient's last bursa injections were in 2023 that did provide 80% improvement and lasted longer than 3 months. Risks and benefits of the medication have been explained in detail to the patient. The patient does understand the risk of dependence on the medication when given over a prolonged period. Patient has been advised of risks of oversedation with the prescribed medication. Narcan has been offered to the paitent in the event of oversedation. Patient has been advised that a family member should also be educated regarding administration of Narcan. The patient has been advised to consult with his/her primary care provider and pharmacist regarding drug-drug interaction of medications currently prescribed. Patient has been prescribed a controlled substance after being counseled on the medication, medication safety, and possible side effects. Opioid contract was reviewed and signed by the patient, and that they have agreed to all of the terms set forth by our compliance program. A UDS is needed to verify patient's compliance with our office pain contract. This is ordered based off specific treatments related to chronic pain with the potential to abuse certain medications. Patient has been instructed to contact the clinic with any concerns before the next appointment. Dr. Savage has reviewed this note and agrees with this plan of care. This note was dictated using voice recognition software and make contain errors or omissions.
== END 2024-10-08 23:59 | disposition home or self-care (01) ==
PROVIDERS: PCP Nurse Practitioner Family; Visit Provider Nurse Practitioner Family
DX: M70.61 Trochanteric bursitis, right hip (principal); M70.62 Trochanteric bursitis, left hip; Z79.891 Long term (current) use of opiate analgesic; Z79.899 Other long term (current) drug therapy
CPT/HCPCS: 99212; G0463

== ENCOUNTER 2024-10-10 10:53 | Outpatient (RCR) | payer MEDICARE, SELFPAY | END 2024-10-10 23:59 | disposition home or self-care (01) | LOC: PT 10:53 | PROVIDERS: Visit Provider Physician Assistant | DX: M70.62 Trochanteric bursitis, left hip (principal) | CPT/HCPCS: 97014; 97035; 97110; 97530; G0283 ==

== ENCOUNTER 2024-10-29 14:02 | Day surgery (SDC) | payer MEDICARE, SELFPAY ==
[2024-10-29 14:11] VITALS: BP 126/74; PULSE 67; RESP 18; O2SAT 94; BMI 43.5
[2024-10-29] MEDS: DEXAMETHASONE 10MG/ML 1ML VIAL 10 MG (14:24)
[2024-10-29] MEDS: LIDOCAINE 1% 5ML PF VIAL 5 ML (14:24)
[2024-10-29] MEDS: BUPIVACAINE 0.25% 10ML INJ 25 MG IJ (14:24)
[2024-10-29 14:25] VITALS: BP 137/56; PULSE 70; RESP 18; O2SAT 97
[2024-10-29 14:26] VITALS: BP 137/56; PULSE 70; RESP 18; O2SAT 97
--- NOTE | 2024-10-29 14:36 | P.PCN_ITS ---
Procedure Date: 10/29/24 Time: 14:20 Anesthesiologist:: Live Romero CRNA Complications:: None Pre-procedure Diagnosis:: Bilateral trochanteric bursitis Post-procedure Diagnosis:: Same Indications for Procedure:: Patient is a very pleasant 59-year-old female who comes our clinic today for bilateral trochanteric bursa injections of cortisone local anesthetic. Patient describes bilateral lateral hip pain as constant, dull, aching. Patient rates the pain 7/10. Procedure Details:: Procedure: Bilateral trochanteric bursa joint injections under fluoroscopy Informed consent was obtained and the risks and benefits of the procedure were explained to the patient.~ The patient was taken to the procedure room and noninvasive monitors were placed including a noninvasive blood pressure cuff and pulse oximeter.~ The patient was placed prone on the procedure table. Both hips were cleansed using Betadine as a cleansing solution. C-arm fluoroscopy was used to view the right trochanteric bursa joint.~ The skin and subcutaneous tissues were anesthetized using lidocaine 1.5% and a 25-gauge needle.~ After this, a 22- gauge spinal needle was inserted under fluoroscopic guidance into the inferior aspect of the right trochanteric bursa.~ Omnipaque dye was injected and good spread was seen throughout the joint.~ After this, approximately 5 mL of bupivacaine, 0.25% and dexamethasone 5 mg was incrementally injected into the right sacroiliac joint. We then moved to the left trochanteric bursa joint.~ The skin and subcutaneous tissues were anesthetized using lidocaine 1.5% and a 25-gauge needle.~ After this, a 22-gauge spinal needle was inserted under fluoroscopic guidance into the inferior aspect of the left trochanteric bursa joint.~ Omnipaque dye was injected and good spread was seen throughout the joint. After this, approximately 5 mL of bupivacaine, 0.25% and dexamethasone 5 mg was incrementally injected into the left sacroiliac joint.~ The patient tolerated the procedure well with no complications. The patient was observed in the Pain Clinic and then was discharged home neurologically intact. Plan and Disposition:: Patient was discharged without incident.
[2024-10-29 14:40] VITALS: BP 122/67; PULSE 65; RESP 18; O2SAT 96
== END 2024-10-29 14:40 | disposition home or self-care (01) ==
PROVIDERS: PCP Nurse Practitioner Family; Visit Provider Nurse Anesthetist, Certified Registered
DX: M70.62 Trochanteric bursitis, left hip (principal); M70.61 Trochanteric bursitis, right hip; F41.9 Anxiety disorder, unspecified; I11.0 Hypertensive heart disease with heart failure; I50.9 Heart failure, unspecified; F32.A Depression, unspecified; M79.7 Fibromyalgia; K21.9 Gastro-esophageal reflux disease without esophagitis; E78.5 Hyperlipidemia, unspecified; I25.2 Old myocardial infarction; E66.9 Obesity, unspecified; Z68.41 Body mass index [BMI] 40.0-44.9, adult; F17.210 Nicotine dependence, cigarettes, uncomplicated; Z88.8 Allergy status to other drugs, medicaments and biological substances; Z79.82 Long term (current) use of aspirin
CPT/HCPCS: 20610; 77002; J0665; J1100; J2003

== ENCOUNTER 2024-11-04 12:10 | Emergency (ER) | payer MEDICARE, SELFPAY ==
--- OUTSIDE RECORDS SUMMARY | 2024-10-09 13:30 | XMS_ITS | Encounter Summary ---
Author Organization [employer] ([place], [place], [place], [place]) Address [address] [place] [address] Care Team Providers Care Biometrics Consultant Name Role Phone Monroe Lopez MD Unavailable Familia Perez APRN Unavailable [phone] Angeles Hartman APRN Primary Care Provider Reason for Referral * MRI (Routine) - Closed Specialty Diagnoses / Procedures Referred By Contac t Referred To Contact Radiology Diagnoses Radiculopathy of lumbar region Lumbar spine pain Procedures MR spine lumbar without IV contrast Monroe Lopez MD [address] [place] [address] Phone: tel: fax: [address] [place] [address] Phone: tel: fax: Referral ID Status Reason Start Date Expiration Date Visits Re quested Visits Authorized [id number] Closed 07/25/2024 07/25/2025 1 1 Reason for Visit * MRI (Routine) - Closed Specialty Diagnoses / Procedures Referred By Contac t Referred To Contact Radiology Diagnoses Radiculopathy of lumbar region Lumbar spine pain Procedures MR spine lumbar without IV contrast Monroe Lopez MD [address] [place] [address] Phone: tel: fax: [facility] [address] [facility] [place] [address] Phone: tel: fax: Referral ID Status Reason Start Date Expiration Date Visits Re quested Visits Authorized [id number] Closed 07/25/2024 07/25/2025 1 1 Encounter Details Date Type Department Care Team (Latest Contact Info) Description 10/09/2024 1:30 PM EDT - 10/09/2024 11:59 PM EDT Hospital Encounter [facility] [address] [facility] [place] [address] Monroe Lopez MD [address] [place] [address] Radiculopathy of lumbar region; Lumbar spine pain [...] Date Regis rded Speak language other than Irish at home Not on file 08/02/2023 Want [...] Description 11/26/2024 1:00 PM EDT Office Visit [facility] Orthopedics - [address] [place] [address] Familia Perez, LOG HANDLING EQUIPMENT OPERATOR [address] [place] [address] 12/31/2024 10:00 AM EDT Office Visit [facility] Neurology - [address] [place] [id number] Jewel Nunez MD [address] [facility] [address] [place] [address] documented as of this encounter Procedures Procedure [...] pain documented in this encounter Care Teams Biometrics Consultant Relationship Specialty Start Date End Date Devan AngelesVIRY [address] [address] PCP - General Nurse Practitioner 07/19/24 Monroe Lopez MD [address] [place] [address] Sports Medicine 02/14/24 Familia Perez, VIRY [address] [place] [address] Orthopedic Surgery 03/25/24 documented as of this encounter
--- OUTSIDE RECORDS SUMMARY | 2024-10-14 11:40 | XMS_ITS | Encounter Summary ---
Author Organization [facility] Address [address] [id number] Care Team Providers Care Human Capital Manager Name Role Phone Angeles Hartman APRN Primary Care Provider +1- [phone] Reason for Referral * Other Medical (Routine) - Pending Review Specialty Diagnoses / Procedures Referred By Stephanie ta Referred To Contact Neurology Diagnoses Lumbar radiculopathy Meralgia paresthetica of left side Procedures EMG / Nerve Conduction Study Alonso Sutton MD [address] [facility] [address] [place] [address] Phone: tel: fax: Referral ID Status Reason Start Date Expiration Date Visits Requested Visits Authorized [id number] Pending Review Specialty Services Required 10/14/2024 04/15/2026 1 1 Reason for Visit * Consultation (Routine) - Closed Specialty Diagnoses / Procedures Referred By Stephanie ta Referred To Contact Neurology Diagnoses Neuritis of lower extremity, unspecified laterality [facility] [address] [place] [address] Phone: tel: fax: Referral ID Status Reason Start Date Expiration Date V isits Requested Visits Authorized [id number] Closed Consult and Treat 07/26/2024 01/25/2026 1 1 Encounter Details Date Type Department Care Team (Late st Contact Info) Description 10/14/2024 11:40 AM EDT Consult [place] [facility] [address], [address] [place] [address] Alonso Sutton MD [address] [place] [address] Lumbar radiculopathy (Primary Dx); Meralgia [...] documented as of this encounter Care Teams Human Capital Manager Relationship Specialty Start Date End Date Angeles Hartman APRN [address] [phone] PCP - General 09/18/20 documented as of this encounter
--- OUTSIDE RECORDS SUMMARY | 2024-10-15 11:00 | XMS_ITS | Encounter Summary ---
Author Organization [employer] ([place], [place], [place], [place]) Address [address] [place] [address] Care Team Providers Care Psychopaedic Nurse Name Role Phone Monroe Lopez MD Unavailable Familia Perez APRN Unavailable [phone] Angeles Hartman APRN Primary Care Provider Reason for Referral * Consultation (Routine) - Authorized Specialty Diagnoses / Procedures Referred By Contmila t Referred To Contact Neurology Diagnoses Polyneuropathy New PT - Polyneuropathy (EMG done at [facility] 05/31/24) Procedures Ready Familia Perez APRN [address] [facility] [place] [address] Phone: tel: fax: Jewel Nunez MD [address] [address] Phone: tel: fax: Referral ID Status Reason Start Date Expiration Date Visits Requested Visits Authorized [id number] Authorized Specialty Services Required 10/15/2024 10/15/2025 1 1 Reason for Visit * Reason Comments Post-Op Follow-up Follow-up MRI Lumbar, CT Pelvi s done at [facility]. Patient also had nerve study done in May 2024 at [facility]. Encounter Details Date Type Department Care Team (Late st Contact Info) Description 10/15/2024 11:00 AM EDT Office Visit [facility] Orthopedics - [address] [place] [address] Familia Perez, MULTIPLE KNIFE EDGE TRIMMER OPERATOR [address] [facility] [place] [address] Sacroiliac joint dysfunction of left side [...] Date Regis rded Speak language other than Croatian at home Not on file 08/02/2023 Want [...] this encounter Progress Notes * Familia Perez, MULTIPLE KNIFE EDGE TRIMMER OPERATOR - 10/15/2024 11:00 AM EDT ORTHO NOTE: [...] Date/Time MR spine lumbar without IV contrast [[id number]] Collected: 10/09/24 1426 Order Status: Completed Updated: [...] Description 11/26/2024 1:00 PM EDT Office Visit [facility] Orthopedics - [address] [place] [phone] Familia Perez, MULTIPLE KNIFE EDGE TRIMMER OPERATOR [address] [facility] [place] [address] 12/31/2024 10:00 AM EDT Office Visit [facility] Neurology - [facility] [address] [place] [address] [address] [place] [phone] Jewel Nunez MD [address] [facility] [address] [place] [address] Scheduled Referrals Name Type Priority Associated Diagnoses Order Schedule Ambulatory referral to Neurology Outpatient Referral Routine Polyneuropathy Ordered: 10/15/2024 documented as of this encounter Visit Diagnoses Diagnosis Sacroiliac joint dysfunction of left side- Primary Polyneuropathy Unspecified hereditary and idiopathic peripheral neuropathy documented in this encounter Care Teams Psychopaedic Nurse Relationship Specialty Start Date End Date Angeles Hartman MULTIPLE KNIFE EDGE TRIMMER OPERATOR [address] [address] PCP - General Nurse Practitioner 07/19/24 Monroe Lopez MD [address] [place] [address] Sports Medicine 02/14/24 Familia Perez, VIRY [address] [place] [address] Orthopedic Surgery 03/25/24 documented as of this encounter
--- OUTSIDE RECORDS SUMMARY | 2024-10-17 14:30 | XMS_ITS | Encounter Summary ---
Author Organization [employer] ([place], [place], [place], [place]) Address [address] [place] [address] Care Team Providers Care Basin Cleaner Name Role Phone [place] MD Unavailable Familia Perez APRN Unavailable [phone] Angeles Hartman APRN Primary Care Provider Reason for Referral * Consultation (Routine) - Closed Specialty Diagnoses / Procedures Referred By Contac t Referred To Contact Pain Medicine Diagnoses Sacroiliitis (HCC) Sacroiliac joint dysfunction of left side [place] MD [address] [place] [address] Phone: tel: fax: Referral ID Status Reason Start Date Expiration Date V isits Requested Visits Authorized [id number] Closed Specialty Services Required 10/17/2024 10/17/2025 1 1 Reason for Visit * Reason Comments Follow-up Lumbar spine Encounter Details Date Type Department Care Team (Late st Contact Info) Description 10/17/2024 2:30 PM EDT Office Visit [facility] Orthopedics - [address] [place] [address] [place] MD [address] [place] [address] Sacroiliitis (HCC) (Primary Dx); Sacroiliac joint dysfunction [...] Date Regis rded Speak language other than Nepali at home Not on file 08/02/2023 Want [...] 2:30 PM EDT NAME: Mela Carmona CSN: [id number] : 1965 PCP: Angeles Hartman APRN REASON [...] was placed by Dr. Cole Douglas in [place]. Patient has an appointment with pain management [...] an [facility] further evaluate nerve entrapments and [...] and affect. Her behavior is normal. Clinical assistant infant teacher note and vitals reviewed Left Knee and [...] reviewed, interpreted, and dictated by Dr. Taina Barilals. Transcribed by Paula Kunz PA-C. INTERVAL HISTORY [...] use of fluoroscopy Referral to Dr. Savage; [facility] - [facility] - fax number [phone] Activity as tolerated Explanation of plan: Based [...] Description 11/26/2024 1:00 PM EDT Office Visit [facility] Orthopedics - [address] [place] [address] Familia Perez, PESTICIDE CHEMIST [address] [facility] [place] [address] 12/31/2024 10:00 AM EDT Office Visit [facility] Neurology - Hollis Bullard [address] [place] [address] Jewel Nunez MD [address] [facility] [address] [place], [place] [id number] Scheduled Referrals Name Type Priority Associated Diagnoses Orde r Schedule Ambulatory referral to Pain Clinic Outpatient Referral Routine Sacroiliitis (HCC) Sacroiliac joint dysfunction of left side Ordered: 10/17/2024 documented as of this encounter Visit Diagnoses Diagnosis Sacroiliitis (HCC)- Primary Sacroiliitis, not elsewhere classified Sacroiliac joint dysfunction of left side documented in this encounter Care Teams Basin Cleaner Relationship Specialty Start Date End Date Angeles Hartman, PESTICIDE CHEMIST [address] [address] PCP - General Nurse Practitioner 07/19/24 [place] MD [address] [place] [address] Sports Medicine 02/14/24 Familia Perez, PESTICIDE CHEMIST [address] [place] [address] Orthopedic Surgery 03/25/24 documented as of this encounter
--- NOTE | 2024-11-04 12:23 | ED_ITS ---
Discharge Plan Disposition Patient Disposition: Home, Self-Care Prescriptions Prescriptions: No Action potassium chloride 10 mEq capsule, extended release 10 meq PO BID PRN (Reason: with furosemide) Qty: 60 0RF furosemide 40 mg tablet 40 mg PO BID Qty: 60 5RF ipratropium-albuterol 0.5 mg-3 mg(2.5 mg base)/3 mL solution for nebulization 3 ml inhalation Q4-6H PRN (Reason: shortness of breath or wheezing) Qty: 90 1RF prasugrel HCl [Effient] 10 mg tablet 10 mg PO DAILY Qty: 36 5RF Rx Instructions: take loading dose (60 mg) for first dose then 10 mg daily after Wegovy 0.25 mg/0.5 mL pen injector 0.25 mg SQ WEEKLY Qty: 2 0RF Rx Instructions: administer weeks 1 through 4 of therapy metoprolol succinate 25 mg tablet extended release 24 hr See Rx Instructions .ROUTE .COMPLEX Qty: 45 3RF Dose Instruction: TAKE 1/2 TABLET BY MOUTH ONCE DAILY Rx Instructions: TAKE 1/2 TABLET BY MOUTH ONCE DAILY clotrimazole 10 mg jerad 10 mg mucous membrane 5XD 14 Days Qty: 70 0RF famotidine 20 mg tablet See Rx Instructions .ROUTE .COMPLEX Qty: 100 2RF Dose Instruction: TAKE 1 TABLET BY MOUTH DAILY Rx Instructions: TAKE 1 TABLET BY MOUTH DAILY ropinirole 1 mg tablet See Rx Instructions .ROUTE .COMPLEX Qty: 100 2RF Dose Instruction: TAKE 1 TABLET BY MOUTH AT BEDTIME EVERY NIGHT Rx Instructions: TAKE 1 TABLET BY MOUTH AT BEDTIME EVERY NIGHT rosuvastatin [Crestor] 40 mg tablet 40 mg PO DAILY Qty: 30 2RF budesonide-formoterol [Symbicort] 160-4.5 mcg/actuation HFA aerosol inhaler See Rx Instructions .ROUTE .COMPLEX Qty: 10.2 0RF Dose Instruction: USE 2 INHALATIONS BY MOUTH TWICE A DAY FOR ASTHMA ..RINSE MOUTH AFTER EACH USE Rx Instructions: USE 2 INHALATIONS BY MOUTH TWICE A DAY FOR ASTHMA ..RINSE MOUTH AFTER EACH USE esomeprazole magnesium 40 mg capsule,delayed release(DR/EC) See Rx Instructions .ROUTE .COMPLEX Qty: 30 3RF Dose Instruction: TAKE 1 CAPSULE BY MOUTH ONCE DAILY Rx Instructions: TAKE 1 CAPSULE BY MOUTH ONCE DAILY aspirin 81 mg Capsule 81 mg PO DAILY cyclobenzaprine 10 mg tablet 10 mg PO TID Qty: 42 0RF hydrocodone-acetaminophen 10-325 mg tablet 1 tab PO TID Qty: 90 0RF Referrals Follow up/Referrals: Angeles Hartman APRN [Primary Care Provider, Medical] - See instructions Activity Restrictions/Add. Instructions Additional Instructions/Restrictions: At this time it was felt you are safe to be discharged home. If new or worsening symptoms please do not hesitate to return the emergency department. Please keep the hemostatic gauze over your wound for the next week. It is okay to take your Guillermo wrap off and check to make sure it is not bleeding through everything. But otherwise keep your Guillermo wrap on and follow-up with your family doctor to ensure it is healing. Clinical Impressions Clinical Impression: Bleeding from wound Print Language Print Language: Egyptian Discharge ED Provider: Wilson Salas General Adult HPI General Stated complaint: R Leg Laceration; On Blood thinners Time Seen by Provider: 11/04/24 12:14 History of Present Illness HPI narrative: Patient is 59-year-old female presents emergency department for evaluation of right distal yanes wound from shaving. It happened a day or 2 ago. She originally had a Band-Aid on it but it has bled through multiple times causing her to become concerned present here for continued evaluation. She is on Effient for her cardiac stents. No other trauma. No other acute complaints at this time. Please note that above description of symptoms, in this electronic medical record under categorization of recalled from ER triage doctor by RN are reflective of an initial nursing assessment, however, is not reflective of my full history and physical exam that was personally taken and clarified. Consequentially, this preceding description of symptoms, which may include the patient's categorized chief complaint in the EMR, do not reflect my personal clinical impression, and the ultimate description of history of present illness and patient stated complaints should be deferred to this section of the note. Unless stated otherwise or congruent with this section of the note, additional signs, symptoms, or incongruence should be interpreted as inaccurate with my clinical impression. Related Data Home Medications ?Medication ?Instructions ?Recorded ?Confirmed aspirin 81 mg capsule 81 mg PO DAILY 04/19/2410/07 Previous Rx's ?Medication ?Instructions ?Recorded ipratropium 0.5 mg-albuterol 3 mg 3 ml inhalation Q4-6 H PRN 01/23/24 (2.5 mg base)/3 mL nebulization shortness of breath or wheezing soln #90 mL metoprolol succinate 25 mg See Rx Instructions .Route 06/27/24 tablet,extended release 24 hr .COMPLEX #45 tabs prasugrel HCl 10 mg tablet 10 mg PO DAILY #36 tabs (Effient) cyclobenzaprine 10 mg tablet 10 mg PO TID #42 tabs 06/01 clotrimazole 10 mg jerad 10 mg mucous membrane 5XD 14 days 09/16/24 #70 tabs potassium chloride 10 mEq 10 meq PO BID PRN with furos emide 09/20/24 capsule,extended release #60 caps famotidine 20 mg tablet See Rx Instructions .Route 0 09/23/24 .COMPLEX #100 tabs ropinirole 1 mg tablet See Rx Instructions .Route 0 09/23/24 .COMPLEX #100 tabs furosemide 40 mg tablet 40 mg PO BID edema #60 tabs 09/26/24 rosuvastatin 40 mg tablet (Crestor) 40 mg PO DAILY #30 tabs 10/08/24 budesonide-formoterol HFA 160 See Rx Instructions .Rou te 10/21/24 mcg-4.5 mcg/actuation aerosol .COMPLEX #10.2 grams inhaler (Symbicort) semaglutide (weight loss) 0.25 0.25 mg (0.5 mL) SQ WEE KLY #2 mL 10/21/24 mg/0.5 mL subcutaneous pen injector (Wegovy) esomeprazole magnesium 40 mg See Rx Instructions .Rout e 10/28/24 capsule,delayed release .COMPLEX #30 caps hydrocodone 10 mg-acetaminophen 1 tab PO TID #90 tabs 10/30/24 325 mg tablet Allergies Allergy/AdvReac Type Severity Reaction Status Date / Time clopidogrel (From Plavix) Allergy Severe NON Verified 10/21/24 10:14 RESPONDER-STENT THROMBOSIS atorvastatin AdvReac Intermediate Abdominal Verified 10/21/24 10:14 Pain rosuvastatin (From Crestor) AdvReac Mild myalgia Verified 10/21/24 10:14 PFSH [facility] Disclaimer: The information contained in this section may have been updated after the patient was seen, as this information can be updated by other users. Medical History Localized edema SOB (shortness of breath) Muscle cramping Edema Low back pain Screening mammogram for breast cancer Right otitis media Lightheadedness Left groin pain Chronic left hip pain Early satiety Epigastric pain Periumbilical abdominal pain Nausea UTI (urinary tract infection) Sprain and strain of left ankle Edema of left foot Left foot pain Peroneal tendinitis of left lower extremity Foot pain Fibromyalgia affecting multiple sites Coccygeal pain Left buttock pain Encounter for wellness examination Acute cystitis without hematuria Cellulitis of left forearm Dysuria Swelling of lower extremity Dysphagia Screening for osteoporosis Screening for breast cancer Oral candidiasis Acute cough Medicare annual wellness visit, subsequent Screening, deficiency anemia, iron Acute bronchitis Elevated uric acid in blood Elevated C-reactive protein (CRP) Localized swelling of left foot Left leg pain Left leg swelling Low vitamin B12 level Myalgia Arthralgia Esophageal stricture Dyspepsia Fibromyalgia Chronic leg pain Acute viral syndrome Nocturnal hypoxemia Callus of foot Keratosis Daytime somnolence Restless sleeper Plantar fasciitis, right Acute left flank pain Right ankle instability Retrocalcaneal bursitis of both feet Retrocalcaneal exostosis Partial tear of right Achilles tendon Tear of peroneal tendon of right foot Nontraumatic tear of right tibialis posterior tendon STEMI (ST elevation myocardial infarction) Unstable angina pectoris Chest pain Right knee pain Sacroiliitis Left ankle sprain Left ankle pain Left hip pain Bilateral knee pain Fall Hypokalemia Gastroenteritis Shoulder injury Near syncope Encounter for pre-operative cardiovascular clearance Foot neuroma Angina pectoris Normal colonoscopy Myocardial infarction Lung disease Depression CHF (congestive heart failure) Arrhythmia Anxiety Dizziness HTN (hypertension) Coronary artery disease Sinus bradycardia Obesity Abnormal EKG Dyspnea Palpitations GERD (gastroesophageal reflux disease) Hyperlipidemia Surgical History History of total knee replacement Hx of cardiac cath History of arthroscopy of right shoulder H/O arthroscopy of left knee Family History Other Family history of acute congestive heart failure Family history of cancer No significant family history Social History Smoking Status: Current every day smoker tobacco type: cigarettes packs per day: 1 second hand exposure: No alcohol intake: never substance use type: denies use current occupational status: other Travel in the last 8 weeks?: None household members: spouse housing: house 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 Other Medical History Have you received the Flu Vaccine for this season: No Have you received the Pneumonia Vaccine: No ROS Obtained: Yes Systems reviewed as appropriate & no additional complaints except as documented Physical Exam General General appearance: alert and in no apparent distress Head Head exam: atraumatic and normocephalic Eye Eye exam: Present PERRL and EOMI ENT ENT exam: Present mucous membranes moist Neck Neck exam: Present normal inspection Chest Chest inspection: Present normal inspection and symmetric chest wall rise Respiratory Respiratory exam: Absent respiratory distress Cardiovascular Cardiovascular exam: Present regular rate and normal rhythm Extremities Exam Extremities exam: Present other (Multiple spider veins bilateral lower extremities. There is a punctate wound upon unwrapping the bloody bandage that is hemostatic) Neurological Exam Neurological exam: Present alert Psychiatric Psychiatric exam: Present normal affect Skin Skin exam: Present warm and dry Medical Decision Making Medical Records Screening: Per USPSTF and CDC recommendations, given the prevalence of disease in our region, it is our hospital?s policy to screen for HIV and viral Hepatitis for all patients aged 18 and over and those with ongoing risk factors. Anatoly Inquiry Pt receiving controlled substance: No Medical Decision Narrative: In summary patient is 59-year-old female past medical history described above presents emergency department for evaluation of a shaving wound that was bleeding on dual antiplatelet therapy. Wound is hemostatic after being wrapped for some time prior to arrival. The wound was clean Tdap was updated hemostatic gauze was placed over it and patient was wrapped with new Guillermo bandage hemostasis maintained. Given this patient is appropriate for discharge at this time was given return precautions. Procedure: Procedure performed was wound care procedure formed by Wilson Salas. Dried blood over the lower extremity was cleaned off and the punctate wound over the distal right yanes was identified. Surgicel gauze was placed over the wound and was covered with larger gauze to make a inverted pressure dressing with a mild amount of pressure placed by Guillermo wrap. Hemostasis continued to be achieved on repeat evaluation. Patient tolerated the procedure well. There were no immediate complications. Critical Care Critical Care Time Critical Care Time: No
[2024-11-04 12:25] VITALS: BP 135/76; PULSE 71; RESP 19; TEMP 36.5; O2SAT 97; BMI 42.3
[2024-11-04] MEDS: TET/DIPHTH/PERT-ADULT 0.5ML SYRINGE 0.5 ML IM (12:42)
[2024-11-04 12:48] VITALS: BP 118/70; PULSE 70; RESP 18; TEMP 36.6; O2SAT 99
--- OUTSIDE RECORDS SUMMARY | 2024-11-04 12:49 | XMS_ITS | Encounter Summary ---
Author Organization [facility] Address [address] [id number] Care Team Providers Care Iron Plastic Bullet Maker Name Role Phone Angeles Hartman APRN Primary Care Provider [phone] Encounter Details Date Type Department Care Team (Latest Contact Info) Description 10/11/2024 Travel Social History Tobacco Use Types Packs/Day Years Used Date Smoking Tobacco: Former Cigarettes 1 10 Passive Smoke Exposure: Yes Smokeless Tobacco: Never Alcohol Use Standard Drinks/Week Comments Never 0 (1 standard drink = 0.6 oz pur e alcohol) Comments Unknown Sex and Gender Information Value Date Recorded Sex Assigned at Not on file Legal Sex Female 6:58 PM EDT Gender Identity Not on file Sexual Orientation Not on file documented as of this encounter Plan of Treatment Not on file documented as of this encounter Visit Diagnoses Not on filedocumented in this encounter Additional Health Concerns Assessment Noted Time A fall risk assessment has been complete d for the patient 11/03/2022 7:40 AM EDT A Body Mass Index follow-up plan has been documented for the patient 11/03/2022 8:19 AM EDT documented as of this encounter Care Teams Iron Plastic Bullet Maker Relationship Specialty Start Date End Date Angeles Hartman APRN [address] [place] [address] PCP - General 09/18/20 documented as of this encounter
--- OUTSIDE RECORDS SUMMARY | 2024-11-04 12:49 | XMS_ITS | Encounter Summary ---
Author Organization [facility] Address [address] [place] [address] Care Team Providers Care Textile Cutting Machine Operator Name Role Phone HartmanAngeles altamirano Janet BAIRES Primary Care Provider [phone] Encounter Details Date Type Department Care Team (Latest Contact Info) Description 10/14/2024 Travel Social History Tobacco Use Types Packs/Day [...] on file documented as of this encounter Functional Status * Over the past 2 weeks, how often have you been bothered by any of the following problems? Question Answer Date of Assessment Author Little interest or pleasure in doing things Nearly every day 10/14/2024 11:24 AM EDT Tara Le Feeling down, depressed, or hopeless Not at all 10/14/2024 11:24 AM EDT Mimi Tara E Patient Health Questionnaire-2 Score 3 10/14/2024 11:24 AM EDT Mimi Tara E * Question Answer Date of Assessment Author Trouble falling or staying asleep, or sleeping too much Nearly every day 10/14/2024 11:24 AM EDT Tara Le Feeling tired or having little energy Nearly [...] Tara Trujillo documented as of this encounter Plan of [...] documented as of this encounter Care Teams Textile Cutting Machine Operator Relationship Specialty Start Date End Date Angeles Hartman APRN [address] [place] [address] PCP - General 09/18/20 documented as of this encounter
--- OUTSIDE RECORDS SUMMARY | 2024-11-04 12:50 | XMS_ITS | Encounter Summary ---
Author Organization [employer] ([place], [place], [place], [place]) Address [address] [place] [address] Care Team Providers Care Nursing Resident Name Role Phone Monroe Lopez MD Unavailable Familia Perez APRN Unavailable [phone] Angeles Hartman APRN Primary Care Provider Encounter Details Date Type Department Care Team (Late st Contact Info) Description 07/18/2024 Outside Orders [facility] [place] Admitting [address] [place] [address] Monroe Lopez MD [address] [place] [address] Social History Tobacco Use Types Packs/Day Years [...] Date Regis rded Speak language other than Nauruan at home Not on file 08/02/2023 Want [...] Description 11/26/2024 1:00 PM EDT Office Visit [facility] Orthopedics - [address] [place] [address] Familia Perez, SWEATBAND SEPARATOR [address] [facility] [place], [place] [id number] 12/31/2024 10:00 AM EDT Office Visit [facility] Neurology - [place] [address] [place] [address] Jewel Nunez MD [address] [facility] [address] [place] [address] documented as of this encounter Visit Diagnoses Not on filedocumented in this encounter Care Teams Nursing Resident Relationship Specialty Start Date End Date Angeles Hartman, SWEATBAND SEPARATOR [address] [place] [address] PCP - General Nurse Practitioner 07/19/24 Monroe Lopez MD [address] [place], [place] [id number] Sports Medicine 02/14/24 Familia Perez, SWEATBAND SEPARATOR [address] [place], [place] [id number] Orthopedic Surgery 03/25/24 documented as of this encounter
--- OUTSIDE RECORDS SUMMARY | 2024-11-04 12:50 | XMS_ITS | Clinical Summary ---
Author Organization [employer] ([place], [place], [place], [place]) Address [address] [place] [address] Care Team Providers Care Document Review Specialist Name Role Phone Monroe Lopez MD Unavailable Familia Perez APRN Unavailable [phone] Angeles Hartman APRN Primary Care Provider [phone] Allergies Active Allergy Reactions Criticality Noted Date Comments Atorvastatin High 05/10/2023 Other reaction(s): Abdominal Pain Clopidogrel High 05/10/2023 Other reaction(s): NON RESPONDER-STENT THROMBOSIS Medications albuterol HFA (VENTOLIN HFA) 90 mcg/actuation inhaler SMARTSIG:Via Inhaler 05/05/2023 Active budesonide-form oteroL (SYMBICORT) 160-4.5 mcg/actuation inhaler SMARTSIG:Via Inhaler 07/07/2023 Active famotidine (PEPCID) 20 MG tablet Take 1 tablet (20 mg total) by mouth daily. 06/30/2023 Active Repatha SureClick 140 mg/mL PnIj Inject subcutaneous ly. 07/07/2023 Active HYDROcodone-dyan taminophen (NORCO 5-325) 5-325 mg per tablet 10/31/2022 Active pantoprazole (PROTONIX) 40 MG tablet Take 1 tablet (40 mg total) by mouth daily. 06/06/2023 Active rOPINIRole (REQUIP) 0.25 MG tablet SMARTSI Tablet(s) By Mouth Every Evening 04/28/2023 Active sertraline (ZOLOFT) 100 MG tablet Take 1 tablet (100 mg total) by mouth daily. 06/06/2023 Active tiZANidine (ZANAFLEX) 4 MG tablet Active venlafaxine (EFFEXOR) 75 MG tablet Daily 01/04/2024 Active HYDROcodone-dyan taminophen (NORCO) 10-325 mg per tablet Take 1 tablet by mouth 3 (three) times daily as needed. Max Daily Amount: 3 tablets 10/08/2024 Active prasugreL HCl (EFFIENT) 10 mg tab tablet Take 1 tablet (10 mg total) by mouth daily. Active aspirin 81 MG EC tablet Take 1 tablet (81 mg total) by mouth daily. Active rosuvastatin (CRESTOR) 40 MG tablet Take 1 tablet (40 mg total) by mouth daily. Active metoprolol tartrate (LOPRESSOR) 25 MG tablet Take 0.5 tablets (12.5 mg total) by mouth once. Active Active Problems Problem Noted Date Diagnosed Date Primary osteoarthritis of right knee 07/26/2023 History of arthroplasty of left knee 07/26/2023 Encounters Date Type Department Care Team Description 10/17/2024 2:30 PM EDT Office Visit [facility] Orthopedics - [address] [place] [address] Monroe Lopez MD Sacroiliitis (HCC) (Primary Dx); Sacroiliac joint dysfunction of left side 10/15/2024 11:00 AM EDT Office Visit [facility] Orthopedics [facility] [address] [place] [address] Familia Perez APRN Sacroiliac joint dysfunction of left side (Primary Dx); Polyneuropathy 10/09/2024 1:30 PM EDT - 10/09/2024 11:59 PM EDT Hospital Encounter [facility] [address] [facility] [address] [place] [address] Monroe Lopez MD Radiculopathy of lumbar region; Lumbar spine pain Discharge Disposition: Home or Self Care from Last 3 Months Family History Medical History Relation Name Comments Arthritis Other Cancer Other Diabetes Other Heart disease Other Relation Name Status Comments Other Social History Tobacco Use Types Packs/Day Years Used Date Smoking Tobacco: Every Day Cigarettes Smokeless Tobacco: Never Tobacco Cessation:Ready to Q [...] Date Regis rded Speak language other than Grenadian at home Not on file 08/02/2023 Want [...] AM CDT Sexual Orientation Not on file Last Filed Vital Signs Vital Sign Reading Time Taken Comments Blood Pressure 100/61 10/17/2024 3:00 PM EDT Pulse 70 10/17/2024 3:00 PM EDT Temperature - - Respiratory Rate 19 02/15/2024 2:53 PM EDT Oxygen Saturation - - Inhaled Oxygen Concentration - - Weight 128.8 kg (284 lb) 10/17/2024 3:00 PM EDT Height 167.6 cm (5' 6 ) 10/17/2024 3:00 PM EDT Body Mass Index 45.84 10/17/2024 3:00 PM EDT Plan of Treatment Upcoming Encounters Date Type Department Care Team (Late st Contact Info) Description 11/26/2024 1:00 PM EDT Office Visit [facility] Orthopedics - [address] [place] [address] Familia Perez, SAFETY ATTENDANT [address] [facility] [place], [place] [address] 12/31/2024 10:00 AM EDT Office Visit [facility] Neurology - [place] [address] [place] [address] Jewel Nunez MD [address] [facility] [address] [place] [address] Health Maintenance Due Date Last Done Comments CT Colonography 1967 Colonoscopy 1967 Colorectal Cancer Screening 1967 FOBT/FIT 1967 Fit-DNA (Cologuard) 1967 Sigmoidoscopy 1967 Depression Screening (12+) 1979 Tobacco Cessation Counseling and Screening (12+) 1979 HIV Screening 09/19/1982 Hepatitis C Screening 09/19/1985 Pneumococcal 50+ years (1 of 2 - PCV) 09/19/1986 Pap Smear 09/19/1988 Breast Cancer Screening 2007 Lipid Panel 09/19/2012 Shingles Vaccine (Zoster) (1 of 2) 09/19/2017 Medicare Initial AWV [id number] 11/06/2023 COVID-19 VACCINE ( - season) 2024 Influenza Vaccine (Season Ended) 2025 DTAP/TDAP/TD VACCINES (3 - Td or Tdap) 04/11/2029, 07/10/1996 Procedures Procedure Name Priority Date/Time Associated Diagnosis Comments MR LUMBAR SPINE WITHOUT IV CONTRAST Routine 10/09/2024 2:09 PM EDT Radiculopathy of lumbar region Lumbar spine pain from Last 3 Months Results * MR spine lumbar without IV [...] Lopez MD IMG MRI ORDERABLES Final Result from Last 3 Months Insurance [facility] MEDICARE ADVANTAGE Care Teams Document Review Specialist Relationship Specialty Start Date End Date Angeles Hartman APRN [address] [address] PCP - General Nurse Practitioner 07/19/24 Monroe Lopez MD [address] [place] [address] Sports Medicine 02/14/24 Familia Perez, SAFETY ATTENDANT [address] [place] [address] Orthopedic Surgery 03/25/24
--- OUTSIDE RECORDS SUMMARY | 2024-11-04 12:50 | XMS_ITS | Referral Summary ---
Author Organization [employer] ([place], [place], [place], [place]) Address [address] [place] [address] Care Team Providers Care Lockstitch Waistband Setter Name Role Phone Monroe Lopez MD Unavailable Familia Perez APRN Unavailable [phone] Angeles Hartman APRN Primary Care Provider Encounters Date Type Department Care Team Description 10/17/2024 2:30 PM EDT Office Visit [facility] Orthoped[facility] [address] [place] [address] Monroe Lopez MD Sacroiliitis (HCC) (Primary Dx); Sacroiliac joint dysfunction of left side 10/15/2024 11:00 AM EDT Office Visit [address] [address] Familia Perez APRN Sacroiliac joint dysfunction of left side (Primary Dx); Polyneuropathy 10/09/2024 1:30 PM EDT - 10/09/2024 11:59 PM EDT Hospital Encounter [facility] [address] [facility] [address] [place] [address] Monroe Lopez MD Radiculopathy of lumbar region; Lumbar spine pain Discharge Disposition: Home or Self Care from Last 3 Months Allergies Active Allergy Reactions Criticality Noted Date [...] History of arthroplasty of left knee 07/26/2023 Social History Tobacco Use Types Packs/Day Years [...] Date Regis rded Speak language other than Andorran at home Not on file 08/02/2023 Want [...] Visit [facility] Orthopedics - [address] [place] [address] Familia Perez, UTILIZATION MANAGEMENT RN [address] [facility] [place] [address] 12/31/2024 10:00 AM EDT Office Visit [facility] Neurology - [place] [address] [place] [id number] Jewel Nunez MD [address] [facility] [address] [place] [address] Procedures Procedure Name Priority Date/Time Associated Diagnosis [...] Final Result from Last 3 Months Insurance [id number] (Home) [address] [facility] [place] [id number] [facility] MEDICARE ADVANTAGE [place] [id number] Care Teams Lockstitch Waistband Setter Relationship Specialty Start Date End Date Devan Angeles, UTILIZATION MANAGEMENT RN [address] [address] PCP - General Nurse Practitioner 07/19/24 Monroe Lopez MD [address] [place] [address] Sports Medicine 02/14/24 Familia Perez, UTILIZATION MANAGEMENT RN [address] [place], [place] [id number] Orthopedic Surgery 03/25/24
--- OUTSIDE RECORDS SUMMARY | 2024-11-04 12:50 | XMS_ITS | Clinical Summary ---
Author Organization [facility] Address [address] [place] [address] Care Team Providers Care External Grinder Name Role Phone Devan Angeles Gonzales APRN Primary Care Provider +1- [phone] Allergies Active Allergy Reactions Criticality Noted Date Comments Atorvastatin Other - please docum ent in the comment field High 05/10/2023 Other reaction(s): Abdominal Pain Clopidogrel Other - please docum ent in the comment field High 05/10/2023 Other reaction(s): NON RESPONDER-STENT THROMBOSIS Medications rosuvastatin (Crestor) 5 MG tablet 3 Active furosemide (Lasix) 20 MG tablet Active HYDROcodone-dyan taminophen ([place]) 5-325 MG tablet 3 Active Symbicort 160-4.5 MCG/ACT inhaler 2 Active esomeprazole (NexIUM) [address] capsule 1 (one) time each day at the same time. 3 Active albuterol 108 (90 Base) MCG/ACT inhaler as needed. 4 Active famotidine (Pepcid) 20 MG tablet 5 Active metoprolol succinate XL (Toprol-XL) 25 MG 24 hr tablet 5 Active potassium chloride CR 10 MEQ PO ER tablet 5 Active prasugrel (Effient) 10 MG tablet 5 Active baclofen (Lioresal) 20 MG tablet Take 1 tablet by mouth 3 times a day. 90 tablet 2 5 Active tiZANidine (Zanaflex) 4 MG tablet 10/15/19 25 Discontinue d(Per Patient Report) Encounters Date Type Department Care Team Description 10/14/2024 11:40 AM EDT Consult [place] [facility] [address] [place] [address] Alonso Sutton MD Lumbar radiculopathy (Primary Dx); Meralgia paresthetica of left side 10/14/2024 Travel 10/11/2024 Travel from Last 3 Months Immunizations Immunization Administration Dates Next Due TD (adult), 2 Lf tetanus tox oid, preservative free, adsorbed 07/10/1996 Tdap 04/11/2019 Family History Medical History Relation Name Comments Conversions - Other Father Patient' s father is Cancer Father's Sister tre Heart disease Maternal Grandfather marta Arthritis Maternal Grandmother cindy Cancer Mother madhavi Cardiac disorder Mother madhavi Heart disease Mother madhavi Heart disease Paternal Grandfather hieu Diabetes Paternal Grandmother mac Relation Name Status Comments Father Father's Sister tre Maternal Grandfather marta Maternal Grandmother cindy Mother madhavi Paternal Grandfather hieu Paternal Grandmother mac Social History Tobacco Use Types Packs/Day Years [...] on file Sexual Orientation Not on file Last Filed [...] Mass Index 45.08 10/14/2024 11:26 AM EDT Plan of Treatment Health Maintenance Due Date Last Done Comments [facility]-HIV Screening 1965 [facility]-Medicare Annual Wellness (AWV) 1967 [facility]-Infant/Child/Adol SDOH Screenings 1965 [facility]- SDOH Screenings 09/19/1985 [facility]-Adult SDOH Screenings 09/19/1985 [facility]-Hepatitis B Vaccines (1 of 3 - 19+ 3-dose series) 09/19/1986 [facility]-Pneumococcal Vaccine: 50 + Years (1 of 2 - PCV) 09/19/1986 [facility]-Pap Smear 09/19/1988 [facility]-Cervical Cancer Screening 09/19/1997 [facility]-HPV/Cotest 09/19/1997 CT Colonography 09/19/2012 Colonoscopy 09/19/2012 FIT-DNA 09/19/2012 FIT 09/19/2012 FOBT 09/19/2012 Sigmoidoscopy 09/19/2012 [facility]-Colorectal Cancer Screening 09/19/2012 [facility]-Breast Cancer Screening 09/19/2017 [facility]-Zoster Vaccines (1 of 2) 09/19/2017 [id number] Vaccine ( - 2023- season) 2024 [facility]-Influenza Vaccine (Seaso n Ended) 2025 [facility]-Depression Screening 10/14/2025 025, 10/14/2024 [facility]-DTaP,Tdap,and Td Vaccine s (2 - Td or Tdap) 04/11/2029 04/11/2019, 07/10/1996 [facility]-Hepatitis C Screening Completed 11/03/2022 [facility]-Obesity Intervention Completed 025, 11/03/2022 HPV Vaccines Aged Out No longer eligi ble based on patient's age to complete this topic [facility]-HIB Vaccines Aged Out No longer e ligible based on patient's age to complete this topic [facility]-Hepatitis A Vaccines Aged Out No longer eligible based on patient's age to complete this topic [facility]-IPV Vaccines Aged Out No longer e ligible based on patient's age to complete this topic [facility]-Rotavirus Vaccines Aged Out No lo nger eligible based on patient's age to complete this topic Procedures Procedure Name Priority Date/Time Associated Diagnosis Comments ACUTE HEPATITIS PANEL Routine 11/03/2022 8:27 AM EDT Elevated C-reactive protein (CRP) from Last 3 Months or Most Recently Relevant to Health Maintenance Results * Acute Hepatitis Panel (11/03/2022 8:27 AM EDT) Hepatitis B Surf Antigen Negative Negative 11/03/2022 10:47 AM EDT [facility] Hepatitis C Antibody Negative Negative 11/03/2022 10:47 AM EDT [facility] Hepatitis A Antibody IgM Negative Negative 11/03/2022 10:47 AM EDT [facility] Hepatitis B Core Antibody IgM Negative Negative 11/03/2022 10:47 AM EDT [facility] Blood Venous blood specimen / Unknown Venipuncture / Unknown 11/03/2022 8:27 AM EDT 11/03/2022 8:28 AM EDT Janiya Huggins APRN LAB BLOOD ORDERABLES Fi nal Result Performing Organization Address City/State/[facility] Co de Phone Number [facility]ARE [facility] [address] [place] [address] from Last 3 Months or Most Recently Relevant to Health Maintenance Insurance MEDICARE Care Teams External Grinder Relationship Specialty Start Date End Date Angeles Hartman APRN [address] [place] [address] [facility] - General 09/18/20
== END 2024-11-04 12:47 | disposition home or self-care (01) ==
PROVIDERS: Emergency Provider Emergency Medicine; PCP Nurse Practitioner Family
DX: S81.811A Laceration without foreign body, right lower leg, initial encounter (principal); F17.210 Nicotine dependence, cigarettes, uncomplicated; W26.8XXA Contact with other sharp object(s), not elsewhere classified, initial encounter; Z95.5 Presence of coronary angioplasty implant and graft; Z86.79 Personal history of other diseases of the circulatory system; Z79.01 Long term (current) use of anticoagulants
CPT/HCPCS: 90471; 90715; 99283

== ENCOUNTER 2024-11-21 13:31 | Outpatient (POV) | payer MEDICARE, SELFPAY ==
--- OUTSIDE RECORDS SUMMARY | 2024-10-14 11:40 | XMS_ITS | Encounter Summary ---
Author Organization [facility] Address [address] [id number] Care Team Providers Care Prototype Model Maker Name Role Phone Angeles Hartman APRN Primary Care Provider +1- [phone] Reason for Referral * Other Medical (Routine) - Pending Review Specialty Diagnoses / Procedures Referred By Stephanie ta Referred To Contact Neurology Diagnoses Lumbar radiculopathy Meralgia paresthetica of left side Procedures EMG / Nerve Conduction Study Alonso Sutton MD [address] [facility] [address] [place] [address] Phone: tel: fax: Referral ID Status Reason Start Date Expiration Date Visits Requested Visits Authorized [id number] Pending Review Specialty Services Required 10/14/2024 04/15/2026 1 1 Reason for Visit * Consultation (Routine) - Closed Specialty Diagnoses / Procedures Referred By Stephanie ta Referred To Contact Neurology Diagnoses Neuritis of lower extremity, unspecified laterality [facility] [address] [place] [address] Phone: tel: fax: Referral ID Status Reason Start Date Expiration Date V isits Requested Visits Authorized [id number] Closed Consult and Treat 07/26/2024 01/25/2026 1 1 Encounter Details Date Type Department Care Team (Late st Contact Info) Description 10/14/2024 11:40 AM EDT Consult [place] [facility] [address], [address] [place] [address] Alonso Sutton MD [address] [place] [address] Lumbar radiculopathy (Primary Dx); Meralgia [...] documented as of this encounter Care Teams Prototype Model Maker Relationship Specialty Start Date End Date Angeles Hartman APRN [address] [phone] PCP - General 09/18/20 documented as of this encounter
--- OUTSIDE RECORDS SUMMARY | 2024-11-21 13:37 | XMS_ITS | Clinical Summary ---
Author Organization [facility] Address [address] [place] [address] Care Team Providers Care Marine Service Operator Name Role Phone HartmanMargueritebetty Gonzales APRN Primary Care Provider [phone]- [phone] Allergies Active Allergy Reactions Criticality Noted Date Comments Atorvastatin Other - please docum ent in the comment field High 05/10/2023 Other reaction(s): Abdominal Pain Clopidogrel Other - please docum ent in the comment field High 05/10/2023 Other reaction(s): NON RESPONDER-STENT THROMBOSIS Medications rosuvastatin (Crestor) 5 MG tablet 06/08/2022 Active furosemide (Lasix) 20 MG tablet Active HYDROcodone-acet aminophen ([place]) 5-325 MG tablet 10/31/2022 Active Symbicort 160-4.5 MCG/ACT inhaler 11/17/2021 Active esomeprazole (NexIUM) [address] capsule 1 (one) time each day at the same time. 06/24/2022 Active albuterol 108 (90 Base) MCG/ACT inhaler as needed. 10/27/2023 Ac tive famotidine (Pepcid) 20 MG tablet 09/26/2024 Active metoprolol succinate XL (Toprol-XL) 25 MG 24 hr tablet 09/26/2024 Act daksha potassium chloride CR 10 MEQ PO ER tablet 2024 Ac tive prasugrel (Effient) 10 MG tablet 09/27/2024 Active baclofen (Lioresal) 20 MG tablet Take 1 tablet by mouth 3 times a day. 90 tablet 2 10/14/2024 Active Encounters Date Type Department Care Team Description 10/14/2024 11:40 AM EDT Consult [place] [facility] [address] [place] [address] Alonso Sutton MD Lumbar radiculopathy [...] 09/19/2017 [facility]-Zoster Vaccines (1 of 2) 09/19/2017 [id number] Vaccine (1 - season) 2024 [facility]-Influenza Vaccine (#1) 2025 [facility]-Depression Screening 10/14/2025 025, 10/14/2024 [facility]-DTaP,Tdap,and [...] Antigen Negative Negative 11/03/2022 10:47 AM EDT [facility] Hepatitis C Antibody Negative Negative 11/03/2022 10:47 AM EDT [facility] Hepatitis A Antibody IgM Negative Negative 11/03/2022 10:47 AM EDT [facility] Hepatitis B Core Antibody IgM Negative Negative 11/03/2022 10:47 AM EDT [facility] Blood Venous blood specimen / Unknown Venipuncture / Unknown 11/03/2022 8:27 AM EDT 11/03/2022 8:28 AM EDT Janiya Huggins APRN LAB BLOOD ORDERABLES Fi nal Result Performing Organization Address City/State/[facility] Co de Phone Number [facility] [address] [place] [address] from Last 3 Months or Most Recently Relevant to Health Maintenance [place] [address] Care Teams Marine Service Operator Relationship Specialty Start Date End Date Angeles Hartman APRN [address] [place] [address] PCP - General 09/18/20
--- OUTSIDE RECORDS SUMMARY | 2024-11-21 13:37 | XMS_ITS | Encounter Summary ---
Author Organization [facility] Address [address] [place] [address] Care Team Providers Care Appraiser Irrigation Tax Name Role Phone HartmanAngeles altamirano Janet BAIRES Primary Care Provider +1- [phone] Encounter Details Date Type Department Care Team [...] documented as of this encounter Care Teams Appraiser Irrigation Tax Relationship Specialty Start Date End Date Angeles Hartman APRN [address] [place] [address] PCP - General 09/18/20 documented as of this encounter
--- OUTSIDE RECORDS SUMMARY | 2024-11-21 13:37 | XMS_ITS | Encounter Summary ---
Author Organization [facility] Address [address] [id number] Care Team Providers Care Counter Manager Name Role Phone Angeles Hartman APRN Primary Care Provider +1- [phone] Encounter Details Date Type Department Care Team [...] documented as of this encounter Care Teams Counter Manager Relationship Specialty Start Date End Date Angeles Hartman APRN [address] [place] [address] PCP - General 09/18/20 documented as of this encounter
[2024-11-21 13:39] VITALS: BP 131/79; PULSE 67; RESP 18; O2SAT 97; BMI 45.1
--- NOTE | 2024-11-21 15:56 | A.OFFVIS_ITS ---
[facility] Disclaimer: The information contained in this section may have been updated after the patient was seen, as this information can be updated by other users. Medical History Localized edema SOB (shortness of breath) Muscle cramping Edema Low back pain Screening mammogram for breast cancer Right otitis media Lightheadedness Left groin pain Chronic left hip pain Early satiety Epigastric pain Periumbilical abdominal pain Nausea UTI (urinary tract infection) Sprain and strain of left ankle Edema of left foot Left foot pain Peroneal tendinitis of left lower extremity Foot pain Fibromyalgia affecting multiple sites Coccygeal pain Left buttock pain Encounter for wellness examination Acute cystitis without hematuria Cellulitis of left forearm Dysuria Swelling of lower extremity Dysphagia Screening for osteoporosis Screening for breast cancer Oral candidiasis Acute cough Medicare annual wellness visit, subsequent Screening, deficiency anemia, iron Acute bronchitis Elevated uric acid in blood Elevated C-reactive protein (CRP) Localized swelling of left foot Left leg pain Left leg swelling Low vitamin B12 level Myalgia Arthralgia Esophageal stricture Dyspepsia Fibromyalgia Chronic leg pain Acute viral syndrome Nocturnal hypoxemia Callus of foot Keratosis Daytime somnolence Restless sleeper Plantar fasciitis, right Acute left flank pain Right ankle instability Retrocalcaneal bursitis of both feet Retrocalcaneal exostosis Partial tear of right Achilles tendon Tear of peroneal tendon of right foot Nontraumatic tear of right tibialis posterior tendon STEMI (ST elevation myocardial infarction) Unstable angina pectoris Chest pain Right knee pain Sacroiliitis Left ankle sprain Left ankle pain Left hip pain Bilateral knee pain Fall Hypokalemia Gastroenteritis Shoulder injury Near syncope Encounter for pre-operative cardiovascular clearance Foot neuroma Angina pectoris Normal colonoscopy Myocardial infarction Lung disease Depression CHF (congestive heart failure) Arrhythmia Anxiety Dizziness HTN (hypertension) Coronary artery disease Sinus bradycardia Obesity Abnormal EKG Dyspnea Palpitations GERD (gastroesophageal reflux disease) Hyperlipidemia Surgical History History of total knee replacement Hx of cardiac cath History of arthroscopy of right shoulder H/O arthroscopy of left knee Family History Other Family history of acute congestive heart failure Family history of cancer No significant family history Social History Smoking Status: Unknown if ever smoked second hand exposure: No alcohol intake: never substance use type: denies use current occupational status: other Travel in the last 8 weeks?: None household members: spouse housing: house 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 She does right at least 80% improvement. Patient is however states that she is having a lot of pain there along her right knee down below and her what she believes is the bursa like she has had in the past. Patient is asking if we can possibly do some injections for this. Patient does state the pain is interfering with her ability perform activities of daily living such as cooking and cleaning. Patient is currently managed with [place] 7.5 mg 3 times a day and Flexeril 10 mg 3 times a day. She does state that the Flexeril will typically make her a little bit more drowsy so she tries to only take it at night. She denies any other changes. Her Anatoly has been reviewed and is appropriate. Review of Systems: General: No recent weight changes, no fever, no sleep disturbances Respiratory: No cough, no shortness of air, no recurring pulmonary infections Cardiovascular/peripheral vascular: No chest pain, no palpitations, no edema, no shortness of breath Gastrointestinal: No new onset incontinence, normal bowel movements reported Genitourinary: No new onset incontinence Musculoskeletal: Right knee pain Psychiatric: [Normal mood/affect] Neurological: [Denies weakness in extremities], [denies balance issues] Pain at rest (0-10 scale): 7 Objective Objective:: Physical Exam: General: Alert and oriented x3, no acute distress, pleasant and cooperative Lungs: Respirations even and unlabored, symmetrical chest expansion Eyes: PERRL Musculoskeletal: Flexion and extension of right knee somewhat guarded secondary to pain, [antalgic gait noted] point tenderness along right anserine bursa Neurological: Speech clear, no gross sensory deficit Has patient had previous pain injection?: Yes Percent improvement in pain since last injection: 80% Conservative treatment options previously tried: Home exercise plan Length of treatment: Longer than 12 weeks Meds Home Medications and Allergies Home Medications ?Medication ?Instructions ?Recorded ?Confirmed ?Type ipratropium 0.5 mg-albuterol 3 mg 3 ml inhalation Q4-6 H PRN 01/23/24 11/21/24 Rx (2.5 mg base)/3 mL nebulization shortness of breath or wheezing soln #90 mL aspirin 81 mg capsule 81 mg PO DAILY 04/19/2411/05 History metoprolol succinate 25 mg See Rx Instructions .Route 06/27/24 11/21/24 Rx tablet,extended release 24 hr .COMPLEX #45 tabs prasugrel HCl 10 mg tablet 10 mg PO DAILY #36 tabs 11/21/24 Rx (Effient) cyclobenzaprine 10 mg tablet 10 mg PO TID #42 tabs 06/0111/21/24 Rx clotrimazole 10 mg jerad 10 mg mucous membrane 5XD 14 days 09/16/24 11/21/24 Rx #70 tabs potassium chloride 10 mEq 10 meq PO BID PRN with furos emide 09/20/24 11/21/24 Rx capsule,extended release #60 caps famotidine 20 mg tablet See Rx Instructions .Route 0 09/23/24 11/21/24 Rx .COMPLEX #100 tabs ropinirole 1 mg tablet See Rx Instructions .Route 0 09/23/24 11/21/24 Rx .COMPLEX #100 tabs furosemide 40 mg tablet 40 mg PO BID edema #60 tabs 09/26/24 11/21/24 Rx rosuvastatin 40 mg tablet (Crestor) 40 mg PO DAILY #30 tabs 10/08/24 11/21/24 Rx budesonide-formoterol HFA 160 See Rx Instructions .Rou te 10/21/24 11/21/24 Rx mcg-4.5 mcg/actuation aerosol .COMPLEX #10.2 grams inhaler (Symbicort) semaglutide (weight loss) 0.25 0.25 mg (0.5 mL) SQ WEE KLY #2 mL 10/21/24 11/21/24 Rx mg/0.5 mL subcutaneous pen injector (Wegovy) esomeprazole magnesium 40 mg See Rx Instructions .Rout e 10/28/24 11/21/24 Rx capsule,delayed release .COMPLEX #30 caps hydrocodone 10 mg-acetaminophen 1 tab PO TID #90 tabs 10/30/24 11/21/24 Rx 325 mg tablet New Prescriptions to Start Prescriptions: Allergies Allergy/AdvReac Type Severity Reaction Status Date / Time clopidogrel (From Plavix) Allergy Severe NON Verified 11/06/24 13:54 RESPONDER-STENT THROMBOSIS atorvastatin AdvReac Intermediate Abdominal Verified 11/06/24 13:54 Pain rosuvastatin (From Crestor) AdvReac Mild myalgia Verified 11/06/24 13:54 Assessment and Plan *Assessment and plan (1) Anserine bursitis: Status: Acute Category: Medical Code(s): M70.50 - Other bursitis of knee, unspecified knee (2) Myofascial pain on right side: Status: Acute Category: Medical Code(s): M79.18 - Myalgia, other site Plan Patient is experiencing worsening pain in her right knee with limited range of motion and point tenderness along her anserine bursa. I did discuss with the patient that I do believe she would benefit from a right anserine bursa injection. Risk and benefits were discussed with the patient and she would like to proceed forward with this plan of care. I did also discuss with the patient that I will go ahead and put in a refill on her [place] and also change her Flexeril to 5 mg and see if this improves some of the fatigue with this medication. Patient agrees with this plan of care. Patient will be scheduled for a right anserine bursa without fluoroscopic or ultrasound guidance. Risks and benefits of the medication have been explained in detail to the patient. The patient does understand the risk of dependence on the medication when given over a prolonged period. Patient has been advised of risks of oversedation with the prescribed medication. Narcan has been offered to the paitent in the event of oversedation. Patient has been advised that a family member should also be educated regarding administration of Narcan. The patient has been advised to consult with his/her primary care provider and pharmacist regarding drug-drug interaction of medications currently prescribed. Patient has been prescribed a controlled substance after being counseled on the medication, medication safety, and possible side effects. Opioid contract was reviewed and signed by the patient, and that they have agreed to all of the terms set forth by our compliance program. A UDS is needed to verify patient's compliance with our office pain contract. This is ordered based off specific treatments related to chronic pain with the potential to abuse certain medications. Patient has been instructed to contact the clinic with any concerns before the next appointment. Dr. Savage has reviewed this note and agrees with this plan of care. This note was dictated using voice recognition software and make contain errors or omissions.
== END 2024-11-21 23:59 | disposition home or self-care (01) ==
PROVIDERS: PCP Nurse Practitioner Family; Visit Provider Nurse Practitioner Family
DX: M70.51 Other bursitis of knee, right knee (principal); M79.18 Myalgia, other site; Z79.891 Long term (current) use of opiate analgesic; Z79.899 Other long term (current) drug therapy
CPT/HCPCS: 99212; G0463

== ENCOUNTER 2024-11-23 00:51 | Inpatient (IN) | payer MEDICARE, SELFPAY ==
--- OUTSIDE RECORDS SUMMARY | 2024-10-09 13:30 | XMS_ITS | Encounter Summary ---
Author Organization [employer] ([place], [place], [place], [place]) Address [address] [place] [address] Care Team Providers Care School Aide Name Role Phone Monroe oLpez MD Unavailable Familia Perez APRN Unavailable [phone] Angeles Hartman APRN Primary Care Provider Reason for Referral * MRI (Routine) - Closed Specialty Diagnoses / Procedures Referred By Contac t Referred To Contact Radiology Diagnoses Radiculopathy of lumbar region Lumbar spine pain Procedures MR spine lumbar without IV contrast Monroe Lopez MD [address] [place] [address] Phone: tel: fax: [address] [place] [address] Phone: tel: fax: Referral ID Status Reason Start Date Expiration Date Visits Re quested Visits Authorized [id number] Closed 07/25/2024 07/25/2025 1 1 Reason for Visit * MRI (Routine) - Closed Specialty Diagnoses / Procedures Referred By Contac t Referred To Contact Radiology Diagnoses Radiculopathy of lumbar region Lumbar spine pain Procedures MR spine lumbar without IV contrast Monroe Lopez MD [address] [place] [address] Phone: tel: fax: [facility] [address] [facility] [address] [place] [address] Phone: tel: fax: Referral ID Status Reason Start Date Expiration Date Visits Re quested Visits Authorized [id number] Closed 07/25/2024 07/25/2025 1 1 Encounter Details Date Type Department Care Team (Latest Contact Info) Description 10/09/2024 1:30 PM EDT - 10/09/2024 11:59 PM EDT Hospital Encounter [facility] [address] [facility] [address] [place] [address] Monroe Lopez MD [address] [place] [address] Radiculopathy of lumbar region; Lumbar spine pain Discharge Disposition: Home or Self Care Social History Tobacco Use Types Packs/Day Years Used Date Smoking Tobacco: Every Day Cigarettes Smokeless Tobacco: Never Alcohol Use Standard Drinks/Week Comments Never 0 (1 standard drink = 0.6 oz pur e alcohol) Food Insecurity Answer Date Recorded Food run out past 12 months Not on file 09/2023 Food did not last past 12 months Not on file 07/11/2023 Employment Answer Date Recorded Help finding and keeping a job Not on file 0 07/11/2023 Family and Community Support Answer Vicente e Recorded Help with Day to Day Activities Not on file 08/02/2023 Feeling Lonely or Isolated Not on file 08/01 Educational Attainment Answer Date Regis rded Speak language other than Albanian at home Not on file 08/02/2023 Want help with school or training Not on file 08/02/2023 Substance Use Answer Date Recorded Used prescription meds for non-medical reasons N ot on file 08/02/2023 Used illegal drugs past 12 months Not on file 08/02/2023 Comments Unknown Sex and Gender Information Value Date Recorded Sex Assigned at Female 08/02/2023 9:24 AM CDT Legal Sex Female 3:38 PM CDT Gender Identity Female 08/02/2023 9:24 AM CDT Sexual Orientation Not on file documented as of this encounter Medications at Time of Discharge albuterol HFA (VENTOLIN HFA) 90 mcg/actuation inhaler SMARTSIG:Via Inhaler 05/05/2023 budesonide-formot Ellie (SYMBICORT) 160-4.5 mcg/actuation inhaler SMARTSIG:Via Inhaler 07/07/2023 famotidine (PEPCID) 20 MG tablet Take 1 tablet (20 mg total) by mouth daily. 06/30/2023 HYDROcodone-aceta minophen (NORCO 5-325) 5-325 mg per tablet 10/31/2022 HYDROcodone-aceta minophen (NORCO) 10-325 mg per tablet Take 1 tablet by mouth 3 (three) times daily as needed. Max Daily Amount: 3 tablets 10/08/2024 pantoprazole (PROTONIX) 40 MG tablet Take 1 tablet (40 mg total) by mouth daily. 06/06/2023 Repatha SureClick 140 mg/mL PnIj Inject subcutaneously . 07/07/2023 rOPINIRole (REQUIP) 0.25 MG tablet SMARTSI Tablet(s) By Mouth Every Evening 04/28/2023 sertraline (ZOLOFT) 100 MG tablet Take 1 tablet (100 mg total) by mouth daily. 06/06/2023 tiZANidine (ZANAFLEX) 4 MG tablet venlafaxine (EFFEXOR) 75 MG tablet Daily 01/04/2024 documented as of this encounter Plan of Treatment Upcoming Encounters Date Type Department Care Team (Late st Contact Info) Description 12/31/2024 10:00 AM EDT Office Visit [facility] Neurology [address] [place] [address] Jewel Nunez MD [address] [facility] [address] [place] [id number] documented as of this encounter Procedures Procedure Name Priority Date/Time Associated Diagnosis Comments MR LUMBAR SPINE WITHOUT IV CONTRAST Routine 10/09/2024 2:09 PM EDT Radiculopathy of lumbar region Lumbar spine pain documented in this encounter Results * MR spine lumbar without IV contrast (10/09/2024 2:09 PM EDT) Anatomical Region Laterality Modality L-spine Magnetic Resonan ce (MRI) 10/09/2024 2:26 PM EDT Impressions 10/09/2024 2:50 PM EDT Degenerative disc disease as above. Images reviewed, interpreted, and dictated by Dr. Taina Barillas. Transcribed by Rosalie Hernandez PA-C. Narrative 10/09/2024 2:50 PM EDT MRI LUMBAR SPINE. HISTORY: Chronic low back pain, radiculopathy. PROCEDURE: Multiplanar MR imaging of the lumbar spine was performed in multiple MR sequences. FINDINGS: The cord terminates appropriately. The intervertebral disc signal is diminished at L4-L5 and L5-S1. There is grade 1 anterolisthesis of L4 on L5. There is a hemangioma within the L4 vertebral body. There is no acute fracture identified. L2-L3: There is facet hypertrophy and a broad-based disc bulge. There is mild central canal stenosis. There is mild bilateral neural foraminal narrowing. L3-L4: There is facet hypertrophy and a broad-based disc bulge. There is mild central canal stenosis. There is mild bilateral neural foraminal narrowing. L4-L5: There is facet hypertrophy and a broad-based disc bulge. There is mild central canal stenosis. There is mild bilateral neural foraminal narrowing. L5-S1: There is facet hypertrophy and a broad-based disc bulge. There is mild central canal stenosis. There is moderate bilateral neural foraminal narrowing. Procedure Note Isha Barillas MD - 10/09/2024 MRI LUMBAR SPINE. HISTORY: Chronic low back pain, radiculopathy. PROCEDURE: Multiplanar MR imaging of the lumbar spine was performed in multiple MR sequences. FINDINGS: The cord terminates appropriately. The intervertebral disc signal is diminished at L4-L5 and L5-S1. There is grade 1 anterolisthesis of L4 on L5. There is a hemangioma within the L4 vertebral body. There is no acute fracture identified. L2-L3: There is facet hypertrophy and a broad-based disc bulge. There is mild central canal stenosis. There is mild bilateral neural foraminal narrowing. L3-L4: There is facet hypertrophy and a broad-based disc bulge. There is mild central canal stenosis. There is mild bilateral neural foraminal narrowing. L4-L5: There is facet hypertrophy and a broad-based disc bulge. There is mild central canal stenosis. There is mild bilateral neural foraminal narrowing. L5-S1: There is facet hypertrophy and a broad-based disc bulge. There is mild central canal stenosis. There is moderate bilateral neural foraminal narrowing. IMPRESSION: Degenerative disc disease as above. Images reviewed, interpreted, and dictated by Dr. Taina Barillas. Transcribed by Rosalie Hernandez PA-C. Monroe Lopez MD IMG MRI ORDERABLES Final Result documented in this encounter Visit Diagnoses Diagnosis Radiculopathy of lumbar region Lumbar spine pain documented in this encounter Care Teams School Aide Relationship Specialty Start Date End Date Angeles Hartman, VIRY [address] [id number] PCP - General Nurse Practitioner 07/19/24 Monroe Lopez MD [address] [place] [address] Sports Medicine 02/14/24 Familia Perez, VIRY [address] [place] [address] Orthopedic Surgery 03/25/24 documented as of this encounter
--- OUTSIDE RECORDS SUMMARY | 2024-10-09 13:30 | XMS_ITS | Encounter Summary ---
Author Organization [employer] ([place], [place], [place], [place]) Address [address] [place] [address] Care Team Providers Care Neurology Technician Name Role Phone Monroe Lopez MD Unavailable Familia Perez APRN Unavailable [phone] Angeles Hartman APRN Primary Care Provider [phone] Reason for Referral * MRI (Routine) - Closed Specialty Diagnoses / Procedures Referred By Contac t Referred To Contact Radiology Diagnoses Radiculopathy of lumbar region Lumbar spine pain Procedures MR spine lumbar without IV contrast Monroe Lopez MD [address] [place] [address] Phone: tel: fax: [address] [place] [address] Phone: tel: fax: Referral ID Status Reason Start Date Expiration Date Visits Re quested Visits Authorized [id number] Closed 07/25/2024 07/25/2025 1 1 Reason for Visit * MRI (Routine) - Closed Specialty Diagnoses / Procedures Referred By Contac t Referred To Contact Radiology Diagnoses Radiculopathy of lumbar region Lumbar spine pain Procedures MR spine lumbar without IV contrast Monroe Lopez MD [address] [place] [address] Phone: tel: fax: [facility] [address] [facility] [address] [place] [address] Phone: tel: fax: Referral ID Status Reason Start Date Expiration Date Visits Re quested Visits Authorized [id number] Closed 07/25/2024 07/25/2025 1 1 Encounter Details Date Type Department Care Team (Latest Contact Info) Description 10/09/2024 1:30 PM EDT - 10/09/2024 11:59 PM EDT Hospital Encounter [facility] [address] [facility] [address] [place] [address] Monroe Lopez MD [address] [place] [address] Radiculopathy of lumbar region; Lumbar spine pain [...] Date Regis rded Speak language other than Portuguese at home Not on file 08/02/2023 Want [...] Care Team (Late st Contact Info) Description 11/26/2024 1:00 PM EDT Office Visit [facility] Orthopedics - [address] [place] [address] Familia Perez, PUMP ROOM OPERATOR [address] [place] [address] 12/31/2024 10:00 AM EDT Office Visit [facility] Neurology - [address] [place] [id number] Jewel Nunez MD [address] [facility] [address] [place] [address] documented as of this encounter Procedures Procedure [...] by Rosalie Hernandez PA-C. Monroe Lopez MD IM MRI ORDERABLES Final Result documented in this encounter Visit Diagnoses Diagnosis Radiculopathy of lumbar region Lumbar spine pain documented in this encounter Care Teams Neurology Technician Relationship Specialty Start Date End Date Devan AngelesVIRY [address] [address] PCP - General Nurse Practitioner 07/19/24 Monroe Lopez MD [address] [place] [address] Sports Medicine 02/14/24 Familia Perez, VIRY [address] [place] [address] Orthopedic Surgery 03/25/24 documented as of this encounter
--- OUTSIDE RECORDS SUMMARY | 2024-10-14 11:40 | XMS_ITS | Encounter Summary ---
Author Organization [facility] Address [address] [id number] Care Team Providers Care Palliative Senior Np Name Role Phone Angeles Hartman APRN Primary Care Provider +1- [phone] Reason for Referral * Other Medical (Routine) - Pending Review Specialty Diagnoses / Procedures Referred By Stephanie ta Referred To Contact Neurology Diagnoses Lumbar radiculopathy Meralgia paresthetica of left side Procedures EMG / Nerve Conduction Study Alonso Sutton MD [address] [facility] [address] [place] [address] Phone: tel: fax: Referral ID Status Reason Start Date Expiration Date Visits Requested Visits Authorized [id number] Pending Review Specialty Services Required 10/14/2024 04/15/2026 1 1 Reason for Visit * Consultation (Routine) - Closed Specialty Diagnoses / Procedures Referred By Stephanie ta Referred To Contact Neurology Diagnoses Neuritis of lower extremity, unspecified laterality [facility] [address] [place] [address] Phone: tel: fax: Referral ID Status Reason Start Date Expiration Date V isits Requested Visits Authorized [id number] Closed Consult and Treat 07/26/2024 01/25/2026 1 1 Encounter Details Date Type Department Care Team (Late st Contact Info) Description 10/14/2024 11:40 AM EDT Consult [place] [facility] [address], [address] [place] [address] Alonso Sutton MD [address] [place] [address] Lumbar radiculopathy (Primary Dx); Meralgia paresthetica of left side Social History Tobacco Use Types Packs/Day Years Used Date Smoking Tobacco: Some Days Cigarettes 1 10 Passive Smoke Exposure: Yes Smokeless Tobacco: Never Tobacco Cessation:Ready to Q uit: Not Asked; Counseling Given: Not Answered Alcohol Use Standard Drinks/Week Comments Never 0 (1 standard drink = 0.6 oz pur e alcohol) PHQ-2 Answer Date Recorded Patient Health Questionnaire-2 Score 3 10/14/2024 PHQ-9 Answer Date Recorded Patient Health Questionnaire-9 Score 10 10/14/2024 Comments Unknown Sex and Gender Information Value Date Recorded Sex Assigned at Not on file Legal Sex Female 6:58 PM EDT Gender Identity Not on file Sexual Orientation Not on file documented as of this encounter Last Filed Vital Signs Vital Sign Reading Time Taken Comments Blood Pressure 112/70 10/14/2024 11:26 AM EDT Pulse 69 10/14/2024 11:26 AM EDT Temperature - - Respiratory Rate - - Oxygen Saturation 99% 10/14/2024 11:26 AM EDT Inhaled Oxygen Concentration - - Weight 127 kg (279 lb 5.2 oz) 10/14/2024 11:26 A M EDT Height 167.6 cm (5' 6 ) 10/14/2024 11:26 AM EDT Body Mass Index 45.08 10/14/2024 11:26 AM EDT documented in this encounter Functional Status * Over the past 2 weeks, how often have you been bothered by any of the following problems? Question Answer Date of Assessment Author Little interest or pleasure in doing things Nearly every day 10/14/2024 11:24 AM EDT Tara Le Feeling down, depressed, or hopeless Not at all 10/14/2024 11:24 AM EDT Tara Le Patient Health Questionnaire-2 Score 3 10/14/2024 11:24 AM EDT Tara Le * Question Answer Date of Assessment Author Trouble falling or staying asleep, or sleeping too much Nearly every day 10/14/2024 11:24 AM Tara Sinha Feeling tired or having little energy Nearly every day 10/14/2024 11:24 AM Tara Sinha Poor appetite or overeating Several days 10/14/2024 11 :24 AM Tara Sinha Feeling bad about yourself - or that you are a failure or have let yourself or your family down Not at all 10/14/2024 11:24 AM Tara Sinha Trouble concentrating on things, such as reading the newspaper or watching television Not at all 10/14/2024 11:24 AM Tara Sinha Moving or speaking so slowly that other people could have noticed? Or the opposite - being so fidgety or restless that you have been moving around a lot more than usual. Not at all 10/14/2024 11:24 AM Tara Sinha Thoughts that you would be better off or hurting yourself in some way Not at all 10/14/2024 11:24 AM Tara Sinha Patient Health Questionnaire-9 Score 10 10/14/2024 11:24 AM Tara Sinha * If you checked off any problems on this questionnaire so far, Question Answer Date of Assessment Author How difficult have these problems made it for you to do your work, take care of things at home, or get along with other people? Somewhat difficult 10/14/2024 11:24 AM Tara Sinha * How difficult have these problems made it for you to do your work, take care of things at home, or get along with other people? Answer Date of Assessment Author Somewhat difficult 10/14/2024 11:24 AM Tara Trujillo documented as of this encounter Miscellaneous Notes * Progress Notes - Alonso Sutton MD - 10/14/2024 11:40 AM EDT A 59-year-old right-handed female who is considered to be disabled because of lymphedema. She does not have any history. She says that 6 years ago she had a left knee replacement. Current complaint is pain along the lateral aspect of her leg with possible radiation from a back. A verbal report from an EMG recently at an outside facility suggested a perineal palsy. She states that pain originates in and around the left buttock and radiates to her toes. Is made worse when she is bending. She also has muscle cramping appears to be worse at bedtime. She has been prescribed multiple medications but is currently not taking either Flexeril, tizanidine, or baclofen. In the past is prescribed low-dose baclofen at 10 mg but is unclear whether it had any benefit at this dose. She also takes hydrocodone 10 mg 3 times per day. She is also considering to have obstructive sleep apnea and she has nasal pillows to treat this. Itis unclear whether she uses that every night and whether or not it has benefit. She has had the unit tested but I I am uncertain whether not she has had a follow-up formal sleep study to make sure that the CPAP pressures are in fact adequate to treat her problem. She states that she smokes 1 pack per day of cigarettes but does not use any illicit drugs or alcohol. On examination she is an obese person we with a BMI of 45.1. She is alert and pleasant and cooperative. He is able to arise from a chair and ambulate independently without any assistive devices. Her gait is well-coordinated walking down the hallway without any clear signs of footdrop or extremity we akness. He can stand on a narrow base without titubation. Her cranial nerve examination shows full extraocular movements. She does not have any nystagmus. Pupils are equal round and reactive to light. Vertical gaze is normal without development of ptosis. Tongue and palate move in the midline. In the extremities he has good muscle power and coordination. Her tone reflexes are generally hypoactive. I did not detect any abnormal reflexes. She has a well healed scar from her knee replacement on the left side. Her sensory examination awayfrom the site of the incision had subjective diminution in conscious light touch along the lateral aspect of her thigh and along the lateral aspect of her lower distal lower extremity. This was in comparison to sensation on the medial aspect. The this did not appear to follow a clear dermatomal distribution. Proximally, the subjective decrease in sensation appears to be in the distribution of thelateral femoral cutaneous nerve. However distal to the knee (the site of the knee replacement surgery) the distribution is less clear. 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 There is some clinical uncertainty given the fact that this was also the site of a knee replacement and whether not some of the distal lateral sensory disturbance may reflect this. One of her major complaints is that of muscle cramping at bedtime. Suggested we try baclofen 20 mg at bedtime and 4-6 hours as needed during the nighttime should she awaken. Sleep disturbance may be multifactorial he has we do not know the effectiveness of her current CPAP intervention for sleep apnea nor we do we know whether not discomfort in her left lower extremity is playing a role with sleep interference. She has had recent MRI scans and we need these to review. I suggested that we repeat the EMG nerve conduction study to address the clinical questions. Vent was somewhat hesitant with the repeated EMGsaying 1 had recently been completed. In the report seemed to indicate that she may have a peronealentrapment. Plan to see her back for follow-up in 2 months to reassess at that time documented in this encounter Plan of Treatment Scheduled Orders Name Type Priority Associated Diagnoses Orde r Schedule EMG / Nerve Conduction Study Neurology Routine Lumbar radiculopathy Meralgia paresthetica of left side Expected: 10/14/2024 (Approximate), Expires: 10/14/2025 documented as of this encounter Visit Diagnoses Diagnosis Lumbar radiculopathy- Primary Thoracic or lumbosacral neuritis or radiculitis, unspecified Meralgia paresthetica of left side documented in this encounter Additional Health Concerns Assessment Noted Time PHQ-9 Depression Total Score: 10 025 11:24 AM EDT A fall risk assessment has been complete d for the patient 10/14/2024 11:24 AM EDT A Body Mass Index follow-up plan has been documented for the patient 10/14/2024 3:08 PM EDT documented as of this encounter Care Teams Palliative Senior Np Relationship Specialty Start Date End Date Angeles Hartman APRN [address] [id number] PCP - General 09/18/20 documented as of this encounter
--- OUTSIDE RECORDS SUMMARY | 2024-10-14 11:40 | XMS_ITS | Encounter Summary ---
Author Organization [facility] Address [address] [id number] Care Team Providers Care Oyster Shipper Name Role Phone Angeles Hartman APRN Primary Care Provider +1- [phone] Reason for Referral * Other Medical (Routine) - Pending Review Specialty Diagnoses / Procedures Referred By Stephanie ta Referred To Contact Neurology Diagnoses Lumbar radiculopathy Meralgia paresthetica of left side Procedures EMG / Nerve Conduction Study Alonso Sutton MD [address] [facility] [address] [place] [address] Phone: tel: fax: Referral ID Status Reason Start Date Expiration Date Visits Requested Visits Authorized [id number] Pending Review Specialty Services Required 10/14/2024 04/15/2026 1 1 Reason for Visit * Consultation (Routine) - Closed Specialty Diagnoses / Procedures Referred By Stephanie ta Referred To Contact Neurology Diagnoses Neuritis of lower extremity, unspecified laterality [facility] [address] [place] [address] Phone: tel: fax: Referral ID Status Reason Start Date Expiration Date V isits Requested Visits Authorized [id number] Closed Consult and Treat 07/26/2024 01/25/2026 1 1 Encounter Details Date Type Department Care Team (Late st Contact Info) Description 10/14/2024 11:40 AM EDT Consult [place] [facility] [address] [place] [address] Alonso Sutton MD [address] [place] [address] Lumbar radiculopathy (Primary Dx); Meralgia [...] documented as of this encounter Care Teams Oyster Shipper Relationship Specialty Start Date End Date Angeles Hartman APRN [address] [phone] PCP - General 09/18/20 documented as of this encounter
--- OUTSIDE RECORDS SUMMARY | 2024-10-15 11:00 | XMS_ITS | Encounter Summary ---
Author Organization [employer] ([place], [place], [place], [place]) Address [address] [place] [address] Care Team Providers Care Beauty Counselor Name Role Phone Monroe Lopez MD Unavailable Familia Perez APRN Unavailable [phone] Angeles Hartman APRN Primary Care Provider Reason for Referral * Consultation (Routine) - Authorized Specialty Diagnoses / Procedures Referred By Contmila t Referred To Contact Neurology Diagnoses Polyneuropathy New PT - Polyneuropathy (EMG done at [facility] 05/31/24) Procedures Ready Familia Perez APRN [address] [facility] [place] [address] Phone: tel: fax: Jewel Nunez MD [address] [address] Phone: tel: fax: Referral ID Status Reason Start Date Expiration Date Visits Requested Visits Authorized [id number] Authorized Specialty Services Required 10/15/2024 10/15/2025 1 1 Reason for Visit * Reason Comments Post-Op Follow-up Follow-up MRI Lumbar, CT Pelvi s done at [facility]. Patient also had nerve study done in May 2024 at [facility]. 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); Polyneuropathy Social History Tobacco Use Types Packs/Day Years [...] Date Regis rded Speak language other than Armenian at home Not on file 08/02/2023 Want [...] Sign Reading Time Taken Comments Blood Pressure 128/67 10/15/2024 11:00 AM EDT Pulse 70 10/15/2024 11:00 AM EDT Temperature - - Respiratory Rate - - Oxygen Saturation - - Inhaled Oxygen Concentration - - Weight 128.8 kg (284 lb) 10/15/2024 11:00 AM EDT Height 167.6 cm (5' 6 ) 10/15/2024 11:00 AM EDT Body Mass Index 45.84 10/15/2024 11:00 AM EDT documented in this encounter Progress Notes * Familia Perez, LIBRARY CIRCULATION DEPARTMENT CHIEF - 10/15/2024 11:00 AM EDT ORTHO NOTE: History of Present Illness: This is a 59-year-old female who is well-known to the orthopedic spine practice. Patient has complex prior history, with multiple morphologies of her symptomatic complaints. Patient has had previous MRI imaging of the lumbar spine completed which no surgical intervention was recommended by Dr. Mcallister. 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 The patient notes that her symptoms are relatively unchanged from prior exam. She is continuing to experience pain in the left thigh, with feelings of paresthesias to the left thigh, she alsonotes continued feelings of heaviness to the left lower extremity. The patient notes that she has had some new feelings of cramping in her feet at night, as well as feelings of cramping in her legs si nce prior exam. She notes her primary care provider is aware of this. At previous office visit the patient was noted to have likely a component of left SI joint dysfunction as well. She is continue to experience pain to the left posterior pelvic region. Pain is worsened with prolonged sitting. Patient notes she has had history of SI joint injections in the past, she notes when she first started receiving them they did give her significant relief in pain. Since prior office visit the patient hashad updated MRI imaging the lumbar spine completed, as well as CT of the pelvis completed. She notes that she did see a neurologist secondary to the neuropathy, but she was not very satisfied with the visit. She is requesting referral for second opinion. She presents to the clinic today for furtherrecommendations of care. Physical Exam: General appearance: alert, appears stated age and cooperative Musc: Positive Sravanthi on the left, positive Jesus Alberto on the left, positive thigh thrust, 5 out of 5 motor strength is noted to the bilateral lower extremities. No focal deficit Vitals: Blood pressure 128/67, pulse 70, height 1.676 m (5' 6 ), weight 128.8 kg (284 lb). Laboratory Data: No results found for this visit on 10/15/24 (from the past 24 hours). Microbiology Results (last 7 days) No results found for the last 168 hours. Radiology: MR spine lumbar without IV contrast Narrative: MRI LUMBAR SPINE. HISTORY: Chronic low back [...] There is moderate bilateral neural foraminal narrowing. Impression: Degenerative disc disease as above. Images reviewed, interpreted, and dictated by Dr. Taina Barillas. Transcribed by Rosalie Hernandez PA-C. Radiology Results (last 7 days) Procedure Component Value Units Date/Time MR spine lumbar without IV contrast [[id number]] Collected: 10/09/24 1426 Order Status: Completed Updated: 10/09/24 1452 Narrative: MRI LUMBAR SPINE. HISTORY: Chronic low back [...] There is moderate bilateral neural foraminal narrowing. Impression: Degenerative disc disease as above. Images reviewed, interpreted, and dictated by Dr. Taina Barillas. Transcribed by Rosalie Hernandez PA-C. CT SCAN OF THE PELVIS WITHOUT CONTRAST 07/19/2024 2:28 PM HISTORY: Left SI joint pain. COMPARISON: None. PROCEDURE: Axial images were obtained from the iliac crest to the pubic symphysis by computed tomography. This study was performed with techniques to keep radiation doses as low as reasonably achievable, (ALARA). Individualized dose reduction techniques using automated exposure control or adjustment of mA and/or kV according to the patient size were employed. FINDINGS: PELVIS: The appendix is not identified. There is a large umbilical hernia containing omental fat. The uterus is midline. The urinary bladder is unremarkable. There is no significant fluid or adenopathy. There is severe degenerative disc disease noted of the lower lumbar spine. There is moderate bilateral SI joint degenerative change with sclerosis, osteophytes and vacuum phenomenon. There is mild bilateral hip degenerative change. IMPRESSION: Lumbar spine and SI joint degenerative change as above. Images reviewed, interpreted, and dictated by Dr. Taina Barillas. Transcribed by Paula Kunz PA-C. 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 Mcallister reviewed updated imaging of the lumbar spine. No surgical intervention is recommended at this time. In regards to her chronic left SI joint dysfunction, CT imaging did reveal evidence of bilateral SIjoint degenerative change. Recommendations are for the patient to follow-up with her primary pain clinic for consideration of left SI joint injections. If she does well with left SI joint injections she would be potential candidate for left SI joint fusion. In regards to the patient's neuropathy type complaints to the left lower extremity, she is requesting second opinion by another neurologist. Referral made for this today. The patient will follow-up with our service after SI joint injections are completed. She verbalizedunderstanding of the findings, and is agreeable to the plan of care. Signed: Familia Perez APRN 10/15/2024 11:14 AM documented in this encounter Plan of Treatment Upcoming Encounters Date Type Department Care Team (Late st Contact Info) Description 12/31/2024 10:00 AM EDT Office Visit [facility] Neurology - [facility] [address] [place] [phone] Jewel Nunez MD [address] [place] [address] Scheduled Referrals Name Type Priority Associated Diagnoses Order Schedule Ambulatory referral to Neurology Outpatient Referral Routine Polyneuropathy Ordered: 10/15/2024 documented as of this encounter Visit Diagnoses Diagnosis Sacroiliac joint dysfunction of left side- Primary Polyneuropathy Unspecified hereditary and idiopathic peripheral neuropathy documented in this encounter Care Teams Beauty Counselor Relationship Specialty Start Date End Date Angeles Hartman APRN [address] [address] PCP - General Nurse Practitioner 07/19/24 Monroe Lopez MD [address] [place] [address] Sports Medicine 02/14/24 Familia Perez APRN [address] [place] [address] Orthopedic Surgery 03/25/24 documented as of this encounter
--- OUTSIDE RECORDS SUMMARY | 2024-10-15 11:00 | XMS_ITS | Encounter Summary ---
Author Organization [email or web address] ([place], [place], [place], [place]) Address [address] [place] [address] Care Team Providers Care Animal Daycare Provider Name Role Phone Monroe Lopez MD Unavailable Familia Perez APRN Unavailable [phone] Angeles Hartman APRN Primary Care Provider Reason for Referral * Consultation (Routine) - Authorized Specialty Diagnoses / Procedures Referred By Contmila t Referred To Contact Neurology Diagnoses Polyneuropathy New PT - Polyneuropathy (EMG done at [facility] 05/31/24) Procedures Ready Familia Perez APRN [address] [facility] [place] [address] Phone: tel: fax: Jewel Nunez MD [address] [address] Phone: tel: fax: Referral ID Status Reason Start Date Expiration Date Visits Requested Visits Authorized [id number] Authorized Specialty Services Required 10/15/2024 10/15/2025 1 1 Reason for Visit * Reason Comments Post-Op Follow-up Follow-up MRI Lumbar, CT Pelvi s done at [facility]. Patient also had nerve study done in May 2024 at [facility]. Encounter Details Date Type Department Care Team (Late st Contact Info) Description 10/15/2024 11:00 AM EDT Office Visit [facility] Orthopedics - [address] [place] [address] Familia Perez, DEBT COLLECTION SPECIALIST [address] [place] [address] Sacroiliac joint dysfunction of left side [...] Date Regis rded Speak language other than Bulgarian at home Not on file 08/02/2023 Want [...] this encounter Progress Notes * Familia Perez, DEBT COLLECTION SPECIALIST - 10/15/2024 11:00 AM EDT ORTHO NOTE: [...] Date/Time MR spine lumbar without IV contrast [[id number]] Collected: 10/09/24 1426 Order Status: Completed Updated: [...] Description 11/26/2024 1:00 PM EDT Office Visit [facility] Orthopedics - [address] [place] [phone] Familia Perez, DEBT COLLECTION SPECIALIST [address] [facility] [place] [address] 12/31/2024 10:00 AM EDT Office Visit [facility] Neurology - [facility] [address] [place] [address] [address] [place] [address] Jewel Nunez MD [address] [facility] [address] [place] [address] Scheduled Referrals Name Type Priority Associated Diagnoses Order Schedule Ambulatory referral to Neurology Outpatient Referral Routine Polyneuropathy Ordered: 10/15/2024 documented as of this encounter Visit Diagnoses Diagnosis Sacroiliac joint dysfunction of left side- Primary Polyneuropathy Unspecified hereditary and idiopathic peripheral neuropathy documented in this encounter Care Teams Animal Daycare Provider Relationship Specialty Start Date End Date Angeles Hartman DEBT COLLECTION SPECIALIST [address] [address] PCP - General Nurse Practitioner 07/19/24 Monroe Lopez MD [address] [place] [address] Sports Medicine 02/14/24 Familia Perez, VIRY [address] [place] [address] Orthopedic Surgery 03/25/24 documented as of this encounter
--- OUTSIDE RECORDS SUMMARY | 2024-10-17 14:30 | XMS_ITS | Encounter Summary ---
Author Organization [employer] ([place], [place], [place], [place]) Address [address] [place] [address] Care Team Providers Care Pipe Or Steam Fitter Furnace Installer Name Role Phone [place] MD Unavailable Familia Perez APRN Unavailable [phone] Angeles Hartman APRN Primary Care Provider Reason for Referral * Consultation (Routine) - Closed Specialty Diagnoses / Procedures Referred By Contac t Referred To Contact Pain Medicine Diagnoses Sacroiliitis (HCC) Sacroiliac joint dysfunction of left side [place] MD [address] [place] [address] Phone: tel: fax: Referral ID Status Reason Start Date Expiration Date V isits Requested Visits Authorized [id number] Closed Specialty Services Required 10/17/2024 10/17/2025 1 1 Reason for Visit * Reason Comments Follow-up Lumbar spine Encounter Details Date Type Department Care Team (Late st Contact Info) Description 10/17/2024 2:30 PM EDT Office Visit [facility] Orthopedics - [address] [place] [address] [place] MD [address] [place] [address] Sacroiliitis (HCC) (Primary Dx); Sacroiliac joint dysfunction of left side Social History Tobacco Use [...] Date Regis rded Speak language other than Danish at home Not on file 08/02/2023 Want [...] Sign Reading Time Taken Comments Blood Pressure 100/61 10/17/2024 3:00 PM EDT Pulse 70 10/17/2024 3:00 PM EDT Temperature - - Respiratory Rate - - Oxygen Saturation - - Inhaled Oxygen Concentration - - Weight 128.8 kg (284 lb) 10/17/2024 3:00 PM EDT Height 167.6 cm (5' 6 ) 10/17/2024 3:00 PM EDT Body Mass Index 45.84 10/17/2024 3:00 PM EDT documented in this encounter Progress Notes * [place] MD - 10/17/2024 2:30 PM EDT NAME: Mela Carmona CSN: [id number] : 1965 PCP: Angeles Hartman APRN REASON FOR VISIT Follow-up (Lumbar spine) HPI Mela Carmona is a 59 y.o. female HPI Established patient reports that she is here to follow up on lumbar spine. Patient reports that shesaw Paul Perez and he wanted her to have SI joint injections to she would be a good candidate for SI joint fusion. Patient had previous SI joint injection on 07/25/2024 and reported about 1 month of relief. Patient reports that her pain is back and more severe. Patient rates her pain today 9/10 today in the office. Patient reports that she had a cardiac stent placed on 07/29/2024 and has been on blood thinners. Patient reports that it was placed by Dr. Cole Douglas in [place]. Patient has an appointment with pain management in approximately a month. PREVIOUS PLAN FROM 07/25/2024 Explanation of plan: Based on patient's history, physical exam, review of radiology exams Mela has multiple neuropathies of the lower extremities that do not appear to be entrapment based. I like to refer to [facility] for further evaluation. She does have some degenerative changes of the lower lumbar spine and SI joints. Sacrotuberous ligament/SI joints were treated today. Please see procedure note above for further detail. Like to order an [facility] further evaluate nerve entrapments and other pathologies that may be contributing to her lower extremity pain, weakness. CURRENT MEDICATIONS Current Outpatient Medications Medication Instructions albuterol HFA (VENTOLIN HFA) 90 mcg/actuation inhaler SMARTSIG:Via Inhaler aspirin 81 mg, oral, Daily budesonide-formoteroL (SYMBICORT) 160-4.5 mcg/actuation inhaler SMARTSIG:Via Inhaler famotidine (PEPCID) 20 mg, Daily HYDROcodone-acetaminophen (NORCO 5-325) 5-325 mg per tablet No dose, route, or frequency recorded. HYDROcodone-acetaminophen (NORCO) 10-325 mg per tablet 1 tablet, 3 times daily PRN metoprolol tartrate (LOPRESSOR) 12.5 mg, oral, Once pantoprazole (PROTONIX) 40 mg, Daily prasugreL HCl (EFFIENT) 10 mg, oral, Daily Repatha SureClick 140 mg/mL PnIj Inject subcutaneously. rOPINIRole (REQUIP) 0.25 MG tablet SMARTSI Tablet(s) By Mouth Every Evening rosuvastatin (CRESTOR) 40 mg, Daily sertraline (ZOLOFT) 100 mg, Daily tiZANidine (ZANAFLEX) 4 MG tablet No dose, route, or frequency recorded. venlafaxine (EFFEXOR) 75 MG tablet Daily ALLERGIES Allergies Allergen Reactions Atorvastatin Other reaction(s): Abdominal Pain Clopidogrel Other reaction(s): NON RESPONDER-STENT THROMBOSIS PAST MEDICAL/SURGICAL HISTORY Past Medical History: Diagnosis Date Clotting disorder (HCC) Fibromyalgia GERD (gastroesophageal reflux disease) History of heart attack Hyperlipidemia Osteoarthritis RLS (restless legs syndrome) Past Surgical History: Procedure Laterality Date CHOLECYSTECTOMY CORONARY STENT PLACEMENT REPLACEMENT TOTAL KNEE right TSA TONSILLECTOMY TUBAL LIGATION SOCIAL HISTORY Social History Tobacco Use Smoking status: Every Day Types: Cigarettes Smokeless tobacco: Never Substance Use Topics Alcohol use: Never Drug use: Never FAMILY HISTORY Family History Problem Relation Name Age of Onset Heart disease Other Diabetes Other Cancer Other Arthritis Other REVIEW OF SYSTEMS ROS Systemic: Not feeling tired. No fever and no chills. Head: No headache and no sinus pain. Otolaryngeal: No new hearing loss and no nasal passage blockage (stuffiness) within the last 24 hours. Cardiovascular: No chest pain or discomfort and no palpitations. Pulmonary: No dyspnea, wheezing or new cough within the last 24 hours. Gastrointestinal: No heartburn. No nausea. Genitourinary: No urinary loss of control. Endocrine: No temperature intolerance and no new muscle weakness. Musculoskeletal: Musculoskeletal symptoms See HPI. Neurological: No tremor. Psychological: No new anxiety and no recent insomnia. Skin: No localized skin discoloration and no rash. OBJECTIVE Vitals: 10/17/24 1500 BP: 100/61 Pulse: 70 Weight: 128.8 kg (284 lb) Height: 1.676 m (5' 6 ) Body mass index is 45.84 kg/m??. Ortho Exam Constitutional: She appears well-developed and well-nourished. Head: Normocephalic and atraumatic. Eyes: No scleral icterus. Neck: No edema and normal range of motion present. Pulmonary/Chest: Effort normal. No accessory muscle usage. No respiratory distress. Neurological: She is alert and cooperative Skin: Skin is warm and dry. No rash noted. Psychiatric: She has a normal mood and affect. Her behavior is normal. Clinical senior office support assistant sosa note and vitals reviewed Left Knee and lower back Inspection: Normal muscular bulk, no asymmetry, no bony deformity, no overt effusion, no skin redness or rash. Palpation: point tenderness - Paraspinous muscles: Tender - Lumbar spinous processes: Tender - SI joints: Tender bilaterally - Patella: Nontender - Quadriceps Tendon: Nontender - Patellar Tendon: Nontender - Tibial Tubercle: Nontender - Joint Line: Nontender - Pes Anserine bursa: Tenderness - Adductor Tubercle: Tenderness - Sartorius/Gracilis: Tenderness - Posterior Knee: Nontender - IT Band: Distal Tenderness - Vastus Lateralis: Tenderness - Lateral Femoral cutaneous: Tenderness on the left Range of motion: - Passive Knee: Extension 0 degrees - Passive Knee Flexion: 110 degrees - Active Knee Extension (L1-L3): 0 degrees - Active Knee Flexion (L4-S3): 110 degrees - Dorsiflexion (L4-Peroneal n): 5/5 - Plantarflexion (S1-Tibial n): 5/5 Sensation: - Genicular n sensation: Hyperesthesia - (L4-femoral n/saphenous n) Medial leg sensation: Hyperesthesia - (L5-peroneal n) Lateral leg sensation: normal - (S1-tibial nerve n) Proximal posterolateral leg sensation: normal - (Sural n) Distal posterolateral leg sensation: normal Standing: - Gait: Antalgic IMAGING/OUTSIDE REPORTS Personally reviewed Results for orders placed during the hospital encounter of 10/09/24 MR spine lumbar without IV contrast Narrative MRI LUMBAR SPINE. HISTORY: Chronic low back [...] There is moderate bilateral neural foraminal narrowing. Impression Degenerative disc disease as above. Images reviewed, interpreted, and dictated by Dr. Taina Barillas. Transcribed by Rosalie Hernandez PA-C. EMG Study from 05/31/2024: Impression: this was an abnormal study. 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 The evoked motor responses from the left fibular (peroneal) nerve were decreased by 70% -90% compared to the right side. On the needle examination the proximal fibular (peroneal) nerve innervated muscles were normal but the distal extensor hallucis longus and especially the extensor digitorum brevis muscle showed signs chronic neural regeneration and remodeling. There is an underlying sensory greater than motor poly- neuropathic process. EMG Summary: The left extensor hallucis longus (deep peroneal nerve, L5-S1) had long duration polyphasic motor units and a reduced interference pattern. The left extensor digitorum brevis (deep peroneal nerve, L5-S1) had giant amplitude, long duration triphasic polyphasic motor units and a markedly reduced interference pattern. Personally reviewed Results for orders placed during the hospital encounter of 07/19/24 CT pelvis without IV contrast Narrative CT SCAN OF THE PELVIS WITHOUT CONTRAST [...] There is mild bilateral hip degenerative change. Impression Lumbar spine and SI joint degenerative change as above. Images reviewed, interpreted, and dictated by Dr. Taina Barillas. Transcribed by Paula Kunz PA-C. INTERVAL HISTORY 07/25/24; Bilateral Sacrotuberous ligament injection 02/15/2024 - Right intra-articular knee injection (RH) 12/25/2023 - Caudal nerve block, US guided 10/26/2023 - Left Piriformis injection 09/29/2023 - SI joint injections with Dr. Tijerina (Pain Management) 09/14/2023- right intra-articular knee injection 08/28/2023 - Left knee SOG block 08/10/2023 Left Intra-Articular Hip Injection ASSESSMENT Diagnoses and all orders for this visit: Sacroiliitis (HCC) - Ambulatory referral to Pain Clinic Sacroiliac joint dysfunction of left side - Ambulatory referral to Pain Clinic PLAN Rest the extremity Heating pad for 20 minutes 2-3 times a day Home exercises Unable to receive SI joint injections until after 10/25/2024 Discussed SI joint injection with pain management with use of fluoroscopy Ref[facility] to Dr[facility]; [facility] - fax number [phone] Activity as tolerated Explanation of plan: Based on patient's history, physical exam, review of radiology exams Mela has chronic sacroiliitis of the left hip/pelvis. My would like her to have a fluoroscopy guided SIjoint injection before considering SI joint fusion. She was agreeable to the treatment plan. We will send her recommendations to Dr. Savage for further evaluation and consideration. Return to clinic if condition worsens or new symptoms arise Return if symptoms worsen or fail to improve. I, [place] MD, personally performed the services described in this documentation, as tanyaedchela Tavera CMA , in my presence, and is both accurate and complete. Electronically Signed, [place] MD 10/17/2024 2:53 PM documented in this encounter Plan of Treatment Upcoming Encounters Date Type Department Care Team (Late st Contact Info) Description 11/26/2024 1:00 PM EDT Office Visit [facility] Orthopedics - [address] [place] [address] Familia Perez, EARRING MAKER [address] [place] [place] [address] 12/31/2024 10:00 AM EDT Office Visit [facility] Neurology - [place] [address] [place] [address] Jewel Nunez MD [address] [facility] [address] [place], [place] [id number] Scheduled Referrals Name Type Priority Associated Diagnoses Orde r Schedule Ambulatory referral to Pain Clinic Outpatient Referral Routine Sacroiliitis (HCC) Sacroiliac joint dysfunction of left side Ordered: 10/17/2024 documented as of this encounter Visit Diagnoses Diagnosis Sacroiliitis (HCC)- Primary Sacroiliitis, not elsewhere classified Sacroiliac joint dysfunction of left side documented in this encounter Care Teams Pipe Or Steam Fitter Furnace Installer Relationship Specialty Start Date End Date Angeles Hartman, EARRING MAKER [address] [address] PCP - General Nurse Practitioner 07/19/24 [place] MD [address] [place] [address] Sports Medicine 02/14/24 Familia Perez, EARRING MAKER [address] [place] [address] Orthopedic Surgery 03/25/24 documented as of this encounter
--- OUTSIDE RECORDS SUMMARY | 2024-10-17 14:30 | XMS_ITS | Encounter Summary ---
Author Organization [employer] ([place], [place], [place], [place]) Address [address] [place] [address] Care Team Providers Care Appliance Adjuster Name Role Phone [place] MD Unavailable Familia Perez APRN Unavailable [phone] Angeles Hartman APRN Primary Care Provider [phone] Reason for Referral * Consultation (Routine) - Closed Specialty Diagnoses / Procedures Referred By Contac t Referred To Contact Pain Medicine Diagnoses Sacroiliitis (HCC) Sacroiliac joint dysfunction of left side [place] MD [address] [place] [address] Phone: tel: fax: Referral ID Status Reason Start Date Expiration Date V isits Requested Visits Authorized [id number] Closed Specialty Services Required 10/17/2024 10/17/2025 1 1 Reason for Visit * Reason Comments Follow-up Lumbar spine Encounter Details Date Type Department Care Team (Late st Contact Info) Description 10/17/2024 2:30 PM EDT Office Visit [facility] Orthopedics - [address] [place] [address] [place] MD [address] [place] [address] Sacroiliitis (HCC) (Primary Dx); Sacroiliac joint dysfunction [...] Date Regis rded Speak language other than Maltese at home Not on file 08/02/2023 Want [...] 2:30 PM EDT NAME: Mela Carmona CSN: [id number] : 1965 PCP: Angeles Hartman APRN REASON [...] was placed by Dr. Cole Douglas in [place]. Patient has an appointment with pain management [...] [facility] further evaluate nerve entrapments and other [...] and affect. Her behavior is normal. Clinical outreach assistant note and vitals reviewed Left Knee and [...] use of fluoroscopy Referral to Dr. Savage; [facility] - [facility] - fax number [phone] Activity as tolerated Explanation of plan: Based [...] the services described in this documentation, as artiibedby Torres Tavera CMA , in my presence, and is both accurate and complete. Electronically Signed, [place] MD 10/17/2024 2:53 PM documented in this encounter Plan of Treatment Upcoming Encounters Date Type Department Care Team (Late st Contact Info) Description 12/31/2024 10:00 AM EDT Office Visit [facility] Neurology - [address] [place] [id number] Jewel Nunez MD [address] [place] [employer] [address] [place] [address] Scheduled Referrals Name Type Priority Associated Diagnoses Orde r Schedule Ambulatory referral to Pain Clinic Outpatient Referral Routine Sacroiliitis (HCC) Sacroiliac joint dysfunction of left side Ordered: 10/17/2024 documented as of this encounter Visit Diagnoses Diagnosis Sacroiliitis (HCC)- Primary Sacroiliitis, not elsewhere classified Sacroiliac joint dysfunction of left side documented in this encounter Care Teams Appliance Adjuster Relationship Specialty Start Date End Date Angeles Hartman, MEAT CUTTING TEACHER [address] [address] PCP - General Nurse Practitioner 07/19/24 [place] MD [address] [place] [address] Sports Medicine 02/14/24 Familia Perez, MEAT CUTTING TEACHER [address] [place] [address] Orthopedic Surgery 03/25/24 documented as of this encounter
[2024-11-23] VITALS (43 sets, daily range): BP systolic 86–155; BP diastolic 52–88; PULSE 52–71; RESP 10–26; TEMP 36.4–37.2; O2SAT 92–100; BMI 43.8; BMI 42.4
--- NOTE | 2024-11-23 00:53 | ECG_ITS ---
APPROVED REPORT Exam: Resting ECG HR:67 bpm ECG Measurements Heart Rate 67 AXES CA 152 P 83 QRSd 86 QRS 74 QT 410 T 75 QTc 425 Conclusion SINUS RHYTHM WITH OCCASIONAL SUPRAVENTRICULAR PREMATURE COMPLEXES SEPTAL MYOCARDIAL INFARCTION , OF INDETERMINATE AGE [40+ ms Q WAVE IN V1/V2] Stable from prior, no STEMI Electronically signed by : JANETTE GOMES, 11/23/2024 06:11:53
--- NOTE | 2024-11-23 00:56 | XR_ITS ---
PROCEDURE INFORMATION: Exam: XR Chest Exam date and time: 11/23/2024 1:16 AM Age: 59 years old Clinical indication: Shortness of breath; Additional info: Cp TECHNIQUE: Imaging protocol: Radiologic exam of the chest. Views: 1 view. Total images: 1 COMPARISON: CT ANGIO CHEST PE PROTOCOL 09/24/2024 3:39 PM FINDINGS: Tubes, catheters and devices: EKG leads are present. Lungs: Right basilar opacity compatible with prominent epicardial fat pad. No acute infiltrate or airspace consolidation. No pulmonary vascular congestion or interstitial edema. Suspect mild emphysema/COPD. Pleural spaces: Unremarkable. No pleural effusion. No pneumothorax. Heart/Mediastinum: No cardiomegaly. No mediastinal widening or hilar enlargement. Vasculature: Atherosclerotic aortic arch. Bones/joints: Osteopenia. Status post median sternotomy. Other findings: Lordotic position. IMPRESSION: 1. No radiographically acute cardiopulmonary process. 2. Chronic findings.
[2024-11-23] MEDS: BELLADONNA ALKALOIDS 60 ML ML PO (01:13)
[2024-11-23] MEDS: ASPIRIN 81MG CHEWABLE TABLET 324 MG PO (01:13)
[2024-11-23 01:23] LABS: Hematocrit 41.8 % (37.0-47.0); Hemoglobin 14.4 g/dL (12.2-16.2); Immature Granulocytes % 0.3 %; Mean Corpuscular HGB Conc 34.4 g/dL (31.8-35.4); Mean Corpuscular Hemoglobin 30.6 pg (27.0-31.2); Mean Corpuscular Volume 88.9 fl (81-99); Nucleated Red Blood Cells % 0 %; Platelet Count 208 K/mm3 (142-424); Red Blood Count 4.70 M/mm3 (4.20-5.40); Red Cell Distribution Width-SD 41.8 fL; White Blood Count 12.7 K/mm3 (4.8-10.8)
[2024-11-23 01:59] LABS: INR 0.97 (0.9-1.1); Prothrombin Time 10.8 seconds (10.1-12.5)
--- OUTSIDE RECORDS SUMMARY | 2024-11-23 02:01 | XMS_ITS | Encounter Summary ---
Author Organization [facility] Address [address] [place] [address] Care Team Providers Care Piano Sounding Board Matcher Name Role Phone HartmanAngeles altamirano Janet BAIRES Primary Care Provider +1- [phone] Encounter Details Date Type Department Care Team [...] documented as of this encounter Care Teams Piano Sounding Board Matcher Relationship Specialty Start Date End Date Angeles Hartman APRN [address] [place] [address] PCP - General 09/18/20 documented as of this encounter
--- OUTSIDE RECORDS SUMMARY | 2024-11-23 02:01 | XMS_ITS | Encounter Summary ---
Author Organization [facility] Address [address] [id number] Care Team Providers Care Bus Aide Name Role Phone Angeles Hartman APRN Primary Care Provider +1- [phone] Encounter Details Date Type Department Care Team [...] documented as of this encounter Care Teams Bus Aide Relationship Specialty Start Date End Date Angeles Hartman APRN [address] [place] [address] PCP - General 09/18/20 documented as of this encounter
--- NOTE | 2024-11-23 02:02 | ECG_ITS ---
APPROVED REPORT Exam: Resting ECG HR:55 bpm ECG Measurements Heart Rate 55 AXES CO 164 P 92 QRSd 80 QRS 59 QT 411 T 81 QTc 400 Conclusion SINUS BRADYCARDIA LOW QRS VOLTAGE IN PRECORDIAL LEADS [QRS DEFLECTION < 1.0 mV IN CHEST LEADS] NONSPECIFIC T-WAVE ABNORMALITY No STEMI, no dynamic changes, stable from prior Electronically signed by : JANETTE GOMES, 11/23/2024 06:12:09
--- OUTSIDE RECORDS SUMMARY | 2024-11-23 02:02 | XMS_ITS | Encounter Summary ---
Author Organization [facility] ([place], [place], [place], [place]) Address [address] [place] [address] Care Team Providers Care Net Web Developer Name Role Phone Monroe Lopez MD Unavailable Familia Perez APRN Unavailable [phone] Angeles Hartman APRN Primary Care Provider Encounter Details Date Type Department Care Team (Late st Contact Info) Description 07/18/2024 Outside Orders [facility] Admitting [address] [place] [address] Monroe Lopez MD [address] [place] [address] Social History Tobacco Use Types Packs/Day Years [...] Date Regis rded Speak language other than Citizen [place] at home Not on file 08/02/2023 Want [...] Description 11/26/2024 1:00 PM EDT Office Visit [facility] [address] [place] [address] Familia Perez, STATUS CONTROLLER [address] [facility] [place], [place] [id number] 12/31/2024 10:00 AM EDT Office Visit [facility] - [place] [address] [place] [address] Jewel Nunez MD [address] [facility] [address] [place] [address] documented as of this encounter Visit Diagnoses Not on filedocumented in this encounter Care Teams Net Web Developer Relationship Specialty Start Date End Date Angeles Hartman, STATUS CONTROLLER [address] [place] [address] PCP - General Nurse Practitioner 07/19/24 Monroe Lopez MD [address] [place], [place] [id number] Sports Medicine 02/14/24 Familia Perez, STATUS CONTROLLER [address] [place], [place] [id number] Orthopedic Surgery 03/25/24 documented as of this encounter
--- OUTSIDE RECORDS SUMMARY | 2024-11-23 02:02 | XMS_ITS | Clinical Summary ---
Author Organization [facility] Address [address] [place] [address] Care Team Providers Care Applique Cutter Name Role Phone HartmanMargueritebetty Gonzales APRN Primary Care Provider [phone] Allergies Active Allergy Reactions Criticality Noted Date Comments Atorvastatin Other - please docum ent in the comment field High 05/10/2023 Other reaction(s): Abdominal Pain Clopidogrel Other - please docum ent in the comment field High 05/10/2023 Other reaction(s): NON RESPONDER-STENT THROMBOSIS Medications rosuvastatin (Crestor) 5 MG tablet 06/08/2022 Active furosemide (Lasix) 20 MG tablet Active HYDROcodone-acet aminophen ([place]) 5-325 MG tablet 10/31/2022 Active Symbicort 160-4.5 [...] Team Description 10/14/2024 11:40 AM EDT [facility] [address] [place] [address] Alonso Sutton MD Lumbar radiculopathy [...] 09/19/2017 [facility]-Zoster Vaccines (1 of 2) 09/19/2017 FJA-ADFYR-50 Vaccine (1 - season) 2024 [facility]-Influenza Vaccine [...] IgM Negative Negative 11/03/2022 10:[address] [facility] Blood Venous blood specimen / Unknown Venipuncture / Unknown 11/03/2022 8:27 AM EDT 11/03/2022 8:28 AM EDT Janiya Huggins APRN LAB BLOOD ORDERABLES Fi nal Result Performing Organization Address City/State/[facility] Co de Phone Number [facility] [address] [place] [address] from Last 3 Months or Most Recently Relevant to Health Maintenance Insurance MEDICARE Care Teams Applique Cutter Relationship Specialty Start Date End Date Angeles Hartman APRN [address] [place] [address] PCP - General 09/18/20
--- OUTSIDE RECORDS SUMMARY | 2024-11-23 02:02 | XMS_ITS | Referral Summary ---
Author Organization [employer] ([place], [place], [place], [place]) Address [address] [place] [address] Care Team Providers Care Chemical Engineering Teacher Name Role Phone Monroe Lopez MD Unavailable Familia Perez APRN Unavailable [phone] Angeles Hartman APRN Primary Care Provider Encounters Date Type Department Care Team Description 10/17/2024 2:30 PM EDT Office Visit [facility] Orthopedics [facility] [address] [place] [address] Monroe Lopez MD Sacroiliitis (HCC) (Primary Dx); Sacroiliac joint dysfunction of left side 10/15/2024 11:00 AM EDT Office Visit [address] [address] Familia Perez APRN Sacroiliac joint dysfunction of left side (Primary Dx); Polyneuropathy 10/09/2024 1:30 PM EDT - 10/09/2024 11:59 PM EDT Hospital Encounter [facility] [address] [facility] [address] [place] [address] Monroe Lopze MD Radiculopathy of lumbar region; Lumbar spine [...] Date Regis rded Speak language other than Pakistani at home Not on file 08/02/2023 Want [...] Description 11/26/2024 1:00 PM EDT Office Visit [facility] Orthopedics - [address] [place] [address] Familia Perez, PRODUCT INTRODUCTION MANAGER [address] [facility] [place] [address] 12/31/2024 10:00 AM EDT Office Visit [facility] Neurology - [place] [address] [place] [id number] Jewel Nunez MD [address] [facility] [address] [place] [address] Procedures Procedure Name Priority Date/Time Associated Diagnosis [...] Final Result from Last 3 Months Insurance [id number] (Home) [address] [facility] [place] [id number] [facility] MEDICARE ADVANTAGE [place] [id number] Care Teams Chemical Engineering Teacher Relationship Specialty Start Date End Date Devan Angeles, PRODUCT INTRODUCTION MANAGER [address] [address] PCP - General Nurse Practitioner 07/19/24 Monroe Lopez MD [address] [place] [address] Sports Medicine 02/14/24 Familia Perez, PRODUCT INTRODUCTION MANAGER [address] [place], [place] [id number] Orthopedic Surgery 03/25/24
--- OUTSIDE RECORDS SUMMARY | 2024-11-23 02:02 | XMS_ITS | Clinical Summary ---
Author Organization [email or web address] ([place], [place], [place], [place]) Address [address] [place] [address] Care Team Providers Care Cobol Developer Name Role Phone Monroe Lopez MD Unavailable Familia Perez APRN Unavailable [phone] Angeles Hartman APRN Primary Care Provider [phone] Allergies Active Allergy Reactions Criticality Noted Date [...] Office Visit [facility] Orthopedics - [address] [place] [address] Monroe Lopez MD Sacroiliitis (HCC) (Primary Dx); Sacroiliac joint dysfunction of left side 10/15/2024 11:00 AM EDT Office Visit [facility] Orthopedics [facility] [address] [place] [address] Familia Perez APRN Sacroiliac joint dysfunction of left side (Primary Dx); Polyneuropathy 10/09/2024 1:30 PM EDT - 10/09/2024 11:59 PM EDT Hospital Encounter [facility] [address] [facility] [address] [place] [address] Monroe Lopez MD Radiculopathy of [...] Date Regis rded Speak language other than Ecuadorean at home Not on file 08/02/2023 Want [...] Office Visit [facility] Orthopedics - [address] [place] [address] Familia Perez, BILLING COORDINATOR [address] [facility] [place], [place] [address] 12/31/2024 10:00 AM EDT Office Visit [facility] Neurology - [place] [address] [place] [address] Jewel Nunez MD [address] [facility] [address] [place] [address] Health Maintenance Due Date Last [...] Shingles Vaccine (Zoster) (1 of 2) 09/19/2017 COVID-19 VACCINE (1 - season) 2024 Medicare Initial AWV [id number] 07/07/2024 Influenza Vaccine (#1) 2025 DTAP/TDAP/TD VACCINES (3 - Td or [...] Images reviewed, interpreted, and dictated by Dr. Tiana Barillas. Transcribed by Rosalie Hernandez PA-C. Monroe Lopez MD IMG MRI ORDERABLES Final Result from Last 3 Months Insurance [facility] MEDICARE ADVANTAGE Care Teams Cobol Developer Relationship Specialty Start Date End Date Angeles Hartman APRN [address] [address] PCP - General Nurse Practitioner 07/19/24 Monroe Lopez MD [address] [place] [address] Sports Medicine 02/14/24 Familia Perez, BILLING COORDINATOR [address] [place] [address] Orthopedic Surgery 03/25/24
[2024-11-23 02:03] LABS: Albumin Level 4.8 g/dl (3.5-5.0); Chloride 105 mmol/L (98-107); Potassium 3.7 mmoL/L (3.5-5.1); Sodium 139 mmol/L (136-145)
[2024-11-23 02:06] LABS: Alanine Aminotransferase 15 U/L (12-78); Albumin/Globulin Ratio 1.7 (1.1-1.8); Alkaline Phosphatase 74 U/L (38-126); Anion Gap 11.7 mEq/L (5-15); Aspartate Amino Transferase 29 U/L (14-36); Bilirubin,Total 0.8 mg/dl (0.2-1.3); Blood Urea Nitrogen 15 mg/dl (7-17); Calcium 9.3 mg/dl (8.4-10.2); Carbon Dioxide 26 mmol/L (22.0-30.0); Creatinine Clearance Estimated 75 mL/min (50-200); Creatinine,Serum 0.80 mg/dl (0.52-1.04); Estimated Glomerular Filt Rate 74 ml/min (>60); GFR (African American) 89 ML/MIN (>60); Globulin 2.8 g/dL (1.3-3.2); Glucose 102 mg/dl (74-100); Total Protein,Serum 7.6 g/dl (6.3-8.2)
[2024-11-23] MEDS: MORPHINE 4MG/ML SYRINGE 4 MG IV ×2 (02:10→03:34)
[2024-11-23] MEDS: ONDANSETRON 4MG/2ML VIAL 4 MG IV (02:10)
[2024-11-23 02:14] LABS: D-Dimer 0.89 ug/mL (0.0-0.5)
[2024-11-23 02:16] LABS: NT Pro Brain Natriuretic Pep. 295 pg/mL (0-125)
[2024-11-23 02:19] LABS: Troponin I < 0.01 ng/ml (0.00-0.034)
--- NOTE | 2024-11-23 02:20 | PC.NURSE ---
ED provider at the bedside updating pt on POC
--- NOTE | 2024-11-23 02:23 | CT_ITS ---
PROCEDURE INFORMATION: Exam: CTA Chest With Contrast Exam date and time: 11/23/2024 3:38 AM Age: 59 years old Clinical indication: Abnormal findings; Abnormal diagnostic tests; Elevated d-dimer; Additional info: Cp dimer elevated TECHNIQUE: Imaging protocol: Computed tomographic angiography of the chest with contrast. Exam focused on the arteries. 3D rendering (Not supervised by radiologist): MIP and/or 3D reconstructed images were created by the technologist. Radiation optimization: All CT scans at this facility use at least one of these dose optimization techniques: automated exposure control; mA and/or kV adjustment per patient size (includes targeted exams where dose is matched to clinical indication); or iterative reconstruction. Contrast material: ISOVUE; Contrast volume: 75 ml; Contrast route: INTRAVENOUS (IV); COMPARISON: CT ANGIO CHEST PE PROTOCOL 09/24/2024 3:39 PM FINDINGS: Pulmonary arteries: Normal. No pulmonary emboli. Aorta: Unremarkable. No aortic aneurysm. No aortic dissection. Lungs: Unremarkable. No consolidation. No masses. Pleural spaces: Unremarkable. No pneumothorax. No pleural effusion. Heart: Coronary calcification is noted. . No cardiomegaly. No pericardial effusion. Lymph nodes: Unremarkable. No enlarged lymph nodes. Bones/joints: Unremarkable. No acute fracture. Soft tissues: Unremarkable. IMPRESSION: 1. No evidence of pulmonary embolus or other acute process. 2. Coronary atherosclerosis.
[2024-11-23] MEDS: NITROGLYCERIN IN 5 % DEXTROSE 250 ML 1.5 MG IV (02:30)
--- NOTE | 2024-11-23 03:24 | PC.NURSE ---
ed provider at the bedside.
--- NOTE | 2024-11-23 03:35 | ED_ITS ---
Discharge Plan Disposition Patient Disposition: Admitted Condition: Good Clinical Impressions Clinical Impression: Unstable angina, Atypical chest pain Discharge ED Provider: Nerissa Salguero General Chief Complaint: Chest Pain Stated Complaint: Chest Pain Time Seen by Provider: 11/23/24 00:56 Mode of Arrival: Ambulatory Source of Information: Patient Description of Symptoms (Recalled from ER Triage Doc. by RN): Pt presents to the ed for eval od chest pressure that began while patient was sitting watching TV approx 2300. Pt reports pressure began midsternal that now radiates to bilateral shoulders and down left arm. Pt reports to taking 2 nitro at at home prior to arrival with last one being approx 0040. Pt denies N/V, SOA or any other associated symptoms. History of Present Illness HPI narrative: 59-year-old female with history of LAD stents, GERD, CHF, hypertension, EVAN presents to the ER for chest pressure radiating to the left arm that started between 1 and 2 hours prior to arrival. Patient reports her pain began midsternal and now radiates bilaterally but down the left arm. She took 2 nitro at home prior to arrival and reports her symptoms actually got somewhat worse. She denies any nausea or vomiting, she states she has no shortness of breath. She states she had pain like this before when she had a blood clot on further investigation of this, she reports she had a stent placed and shortly thereafter threw a clot to the stent. That was multiple years ago. Since that time she has had a new stent placed in July in the same area due to occlusion. Cardiac cath records demonstrate drug-eluting stent placed in the LAD with resolution of the area of stenosis. Patient was on Effient and aspirin but states she was recently taken off the Effient so she was more worried about the potential for cardiac problem or clot. She has no numbness, tingling, or weakness, no headache, dizziness, fevers, chills, vomiting, or diarrhea. She states she also tried taking an antacid before arrival without significant improvement of symptoms. Related Data Home Medications ?Medication ?Instructions ?Recorded ?Confirmed aspirin 81 mg capsule 81 mg PO DAILY 04/19/2411/05 Previous Rx's ?Medication ?Instructions ?Recorded ipratropium 0.5 mg-albuterol 3 mg 3 ml inhalation Q4-6 H PRN 01/23/24 (2.5 mg base)/3 mL nebulization shortness of breath or wheezing soln #90 mL metoprolol succinate 25 mg See Rx Instructions .Route 06/27/24 tablet,extended release 24 hr .COMPLEX #45 tabs prasugrel HCl 10 mg tablet 10 mg PO DAILY #36 tabs (Effient) cyclobenzaprine 10 mg tablet 10 mg PO TID #42 tabs 06/01 clotrimazole 10 mg jerad 10 mg mucous membrane 5XD 14 days 09/16/24 #70 tabs potassium chloride 10 mEq 10 meq PO BID PRN with furos emide 09/20/24 capsule,extended release #60 caps famotidine 20 mg tablet See Rx Instructions .Route 0 09/23/24 .COMPLEX #100 tabs ropinirole 1 mg tablet See Rx Instructions .Route 0 09/23/24 .COMPLEX #100 tabs furosemide 40 mg tablet 40 mg PO BID edema #60 tabs 09/26/24 rosuvastatin 40 mg tablet (Crestor) 40 mg PO DAILY #30 tabs 10/08/24 budesonide-formoterol HFA 160 See Rx Instructions .Rou te 10/21/24 mcg-4.5 mcg/actuation aerosol .COMPLEX #10.2 grams inhaler (Symbicort) semaglutide (weight loss) 0.25 0.25 mg (0.5 mL) SQ WEE KLY #2 mL 10/21/24 mg/0.5 mL subcutaneous pen injector (Wegovy) esomeprazole magnesium 40 mg See Rx Instructions .Rout e 10/28/24 capsule,delayed release .COMPLEX #30 caps cyclobenzaprine 5 mg tablet 5 mg PO QID #120 tabs 11/05 11/29 hydrocodone 10 mg-acetaminophen 1 tab PO TID #90 tabs 11/21/24 325 mg tablet Allergies Allergy/AdvReac Type Severity Reaction Status Date / Time clopidogrel (From Plavix) Allergy Severe NON Verified 11/06/24 13:54 RESPONDER-STENT THROMBOSIS atorvastatin AdvReac Intermediate Abdominal Verified 11/06/24 13:54 Pain rosuvastatin (From Crestor) AdvReac Mild myalgia Verified 11/06/24 13:54 [facility] Disclaimer: The information contained in this section may have been updated after the patient was seen, as this information can be updated by other users. Medical History Localized edema SOB (shortness of breath) Muscle cramping Edema Low back pain Screening mammogram for breast cancer Right otitis media Lightheadedness Left groin pain Chronic left hip pain Early satiety Epigastric pain Periumbilical abdominal pain Nausea UTI (urinary tract infection) Sprain and strain of left ankle Edema of left foot Left foot pain Peroneal tendinitis of left lower extremity Foot pain Fibromyalgia affecting multiple sites Coccygeal pain Left buttock pain Encounter for wellness examination Acute cystitis without hematuria Cellulitis of left forearm Dysuria Swelling of lower extremity Dysphagia Screening for osteoporosis Screening for breast cancer Oral candidiasis Acute cough Medicare annual wellness visit, subsequent Screening, deficiency anemia, iron Acute bronchitis Elevated uric acid in blood Elevated C-reactive protein (CRP) Localized swelling of left foot Left leg pain Left leg swelling Low vitamin B12 level Myalgia Arthralgia Esophageal stricture Dyspepsia Fibromyalgia Chronic leg pain Acute viral syndrome Nocturnal hypoxemia Callus of foot Keratosis Daytime somnolence Restless sleeper Plantar fasciitis, right Acute left flank pain Right ankle instability Retrocalcaneal bursitis of both feet Retrocalcaneal exostosis Partial tear of right Achilles tendon Tear of peroneal tendon of right foot Nontraumatic tear of right tibialis posterior tendon STEMI (ST elevation myocardial infarction) Unstable angina pectoris Chest pain Right knee pain Sacroiliitis Left ankle sprain Left ankle pain Left hip pain Bilateral knee pain Fall Hypokalemia Gastroenteritis Shoulder injury Near syncope Encounter for pre-operative cardiovascular clearance Foot neuroma Angina pectoris Normal colonoscopy Myocardial infarction Lung disease Depression CHF (congestive heart failure) Arrhythmia Anxiety Dizziness HTN (hypertension) Coronary artery disease Sinus bradycardia Obesity Abnormal EKG Dyspnea Palpitations GERD (gastroesophageal reflux disease) Hyperlipidemia Surgical History History of total knee replacement Hx of cardiac cath History of arthroscopy of right shoulder H/O arthroscopy of left knee Family History Other Family history of acute congestive heart failure Family history of cancer No significant family history Social History Smoking Status: Current every day smoker tobacco type: cigarettes packs per day: 1 second hand exposure: No alcohol intake: never substance use type: denies use current occupational status: other Travel in the last 8 weeks?: None household members: spouse housing: house 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 Other Medical History Have you received the Flu Vaccine for this season: No Have you received the Pneumonia Vaccine: No ROS Obtained: Yes Systems reviewed as appropriate & no additional complaints except as documented Per HPI Physical Exam General General appearance: alert, in no apparent distress and obese Head Head exam: atraumatic and normocephalic Eye Eye exam: Present PERRL and EOMI ENT ENT exam: Present mucous membranes moist Neck Neck exam: Present normal inspection and full ROM Chest Chest inspection: Present symmetric chest wall rise; Absent tenderness Respiratory Respiratory exam: Present normal lung sounds bilaterally; Absent respiratory distress, wheezes or stridor Cardiovascular Cardiovascular exam: Present regular rate and normal rhythm Abdominal Exam Abdominal exam: Present soft; Absent distention or tenderness Extremities Exam Extremities exam: Present full ROM and edema (Bilateral lower extremity) Neurological Exam Neurological exam: Present alert and oriented X3; Absent motor sensory deficit Psychiatric Psychiatric exam: Present normal affect and normal mood Skin Skin exam: Present warm and dry HEART Score HEART Score HEART Score assessment performed?: Yes History (anamnesis): Moderately suspicious ECG: Non-specific disturbance Age: 45-65 years Risk factors: Atherosclerosis history Troponin: </= normal limit HEART Score: 5 Critical Care Critical Care Time Critical Care Time: No Medical Decision Making Medical Records Medical records reviewed: Yes I reviewed the patient's medical records. Anatoly Inquiry Pt receiving controlled substance: No Vital Signs Vital Signs: 11/23/24 00:53 11/23/24 02:01 11/23/24 02:10 Temperature 97.8 F Temperature Source Oral Pulse Rate 58 L 58 L Pulse Rate [Radial] 65 Respiratory Rate 16 13 18 Blood Pressure 136/75 136/75 Blood Pressure [Right Arm] 145/79 H Blood Pressure Mean [Right Arm] 101 Blood Pressure Position Sitting Blood Pressure Position [Right Arm] Sitting 02 Sat by Pulse Oximetry 98 97 100 Oxygen Delivery Method Room Air Room Air 11/23/24 02:30 11/23/24 03:03 11/23/24 03:31 Temperature Temperature Source Pulse Rate 59 L 71 Pulse Rate [Radial] Respiratory Rate 16 13 12 Blood Pressure 155/88 H 146/74 H 129/81 Blood Pressure [Right Arm] Blood Pressure Mean [Right Arm] Blood Pressure Position Blood Pressure Position [Right Arm] 02 Sat by Pulse Oximetry 98 94 L Oxygen Delivery Method 11/23/24 03:46 11/23/24 04:01 Temperature Temperature Source Pulse Rate 59 L 58 L Pulse Rate [Radial] Respiratory Rate 13 11 L Blood Pressure 138/60 121/69 Blood Pressure [Right Arm] Blood Pressure Mean [Right Arm] Blood Pressure Position Blood Pressure Position [Right Arm] 02 Sat by Pulse Oximetry 97 95 Oxygen Delivery Method Lab Data Labs: Lab Results 11/23/24 01:10: WBC 12.7 H, RBC 4.70, Hgb 14.4, Hct 41.8, MCV 88.9, MCH 30.6, MCHC 34.4, RDW 12.8, Plt Count 208, MPV 11.5 H, Neut % (Auto) 51.9, Lymph % (Auto) 37.8, Hitchcock % (Auto) 7.4, Eos % (Auto) 1.8, Baso % (Auto) 0.8, Neut # (Auto) 6.6, Lymph # (Auto) 4.8 H, Hitchcock # (Auto) 0.9, Eos # (Auto) 0.2, Baso # (Auto) 0.1, PT 10.8, INR 0.97, D-Dimer 0.89 H, Sodium 139, Potassium 3.7, Chloride 105, Carbon Dioxide 26, Anion Gap 11.7, BUN 15, Creatinine 0.80, Estimated Creat Clear 75, Estimated GFR 74, Est GFR ( Amer) 89, Glucose 102 H, Calcium 9.3, Total Bilirubin 0.8, AST 29, ALT 15, Alkaline Phosphatase 74, Troponin I < 0.01, NT-Pro-B Natriuret Pep 295 H, Total Protein 7.6, Albumin 4.8, Globulin 2.8, Albumin/Globulin Ratio 1.7 11/23/24 01:10 11/23/24 01:10 Response Orders (Tests/Meds): ED MEDICATIONS Generic Name Dose Route Start Last Admin Trade Name Freq PRN Reason Stop Dose Admin Aspirin 81 mg 11/23/24 09:00 Aspirin Ec 81mg Tablet PO 12/23/24 08:59 DAILY COUNTS INCLUDE 234 BEDS AT THE [facility] Atorvastatin Calcium 40 mg 11/23/24 21:00 Atorvastatin 40mg Tablet PO 12/23/24 20:59 HS COUNTS INCLUDE 234 BEDS AT THE [facility] Nitroglycerin/Dextrose 250 mls @ 1.5 mls/hr 11/23/24 02:15 11/23/24 03:26 Nitroglycerin 50mg/250ml D5w IV 12/23/24 02:14 15 mcg/min .Q24H TYREL 4.5 mls/hr Protocol Titration 5 MCG/MIN Morphine Sulfate 2 mg 11/23/24 04:05 Morphine 2mg/Ml Syringe IV 12/23/24 04:04 Q4HP PRN Moderate to Severe Pain (4-10) Nitroglycerin 0.4 mg 11/23/24 00:56 Nitroglycerin 0.4mg Sl Tablet SL 11/24/24 00:56 Q5MINP PRN Chest Pain Discontinued Medications Generic Name Dose Route Start Last Admin Trade Name Freq PRN Reason Stop Dose Admin Aspirin 324 mg 11/23/24 00:56 11/23/24 01:13 Aspirin 81mg Chewable Tablet PO 11/23/24 00:57 324 mg ONCE ONE Administration Belladonna Alkaloids 60 ml 11/23/24 01:08 11/23/24 01:13 Belladonna Alkaloids 60 Ml Ml PO 11/23/24 01:09 60 ml ONCE ONE Administration Iopamidol 75 ml 11/23/24 03:37 11/23/24 03:43 Iopamidol-370 (76%);100ml Bottle IV 11/23/24 03:38 75 ml ONCE ONE Administration Morphine Sulfate 4 mg 11/23/24 02:04 11/23/24 02:10 Morphine 4mg/Ml Syringe IV 11/23/24 02:05 4 mg ONCE ONE Administration Morphine Sulfate 4 mg 11/23/24 03:23 11/23/24 03:34 Morphine 4mg/Ml Syringe IV 11/23/24 03:24 4 mg ONCE ONE Administration Ondansetron HCl 4 mg 11/23/24 02:04 11/23/24 02:10 Ondansetron 4mg/2ml Vial IV 11/23/24 02:05 4 mg ONCE ONE Administration Sodium Chloride 50 ml 11/23/24 03:37 11/23/24 03:42 0.9 % Sodium Chloride 50 Ml Vial IV 11/23/24 03:38 50 ml ONCE ONE Administration Sodium Chloride 10 ml 11/23/24 03:37 11/23/24 03:42 Sodium Chloride 0.9% 10ml Syr (Rad Only) IV 11/23/24 03:38 10 ml ONCE ONE Administration ORDERS Category Date Time Status CT angio chest PE protocol Stat Cat Scan 11/23/24 02:23 Taken Consult to Cardiology [CONS] Routine Cons 11/23/24 04:05 Active XR chest portable Stat Exams 11/23/24 00:56 Completed Basic Metabolic Panel AMLAB Lab 11/23/24 06:00 Ordered Complete Blood Count Auto Diff AMLAB Lab 11/23/24 06:00 Ordered Complete Blood Count Auto Diff Stat Lab 11/23/24 01:10 Completed Comprehensive Metabolic Panel Stat Lab 11/23/24 01:10 Completed D-Dimer Stat Lab 11/23/24 01:10 Completed NT Pro Brain Natriuretic Pep. Stat Lab 11/23/24 01:10 Completed Prothrombin Time INR Stat Lab 11/23/24 01:10 Completed Troponin I Q3H Lab 11/23/24 04:00 Ordered Troponin I Q3H Lab 11/23/24 07:00 Ordered Troponin I Stat Lab 11/23/24 01:10 Completed Troponin I Timed Lab 11/23/24 08:00 Ordered MDM Narrative Medical Decision Narrative: In summary, this 59-year-old female with history of CAD, stents, with multiple other comorbidities, recently taken off Effient presents to the emergency department today with chest pressure radiating to the left arm without other associated symptoms. On initial evaluation patient is hemodynamically stable, afebrile, patient still has symptoms actively upon presentation to the ER. Aspirin administered. She refused oral nitro because it made her feel worse earlier cardiopulmonary exam is reassuring the patient does have edema in the bilateral lower extremities. She reports being compliant with her diuretics. Abdominal exam benign, no neurologic abnormalities. Differential diagnosis includes but is not limited to ACS, PE, electrolyte abnormality, esophageal spasm, pneumothorax, with history of GERD I considered this as a potential etiology as well among other things. Ruling out the most morbid conditions during my assessment. Based on these concerns, I ordered serum labs, cardiac workup, D-dimer, chest x-ray. ECG personally interpreted demonstrates sinus rhythm with occasional PAC, rate 67, normal axis, normal AK and QTc, patient has trace ST depressions in the inferior leads without true elevation, this is stable from previous ECG and does not represent STEMI. Patient received aspirin initially as well as GI cocktail for treatment. Labs personally reviewed demonstrate mild leukocytosis WBC 12.7, no anemia, platelets normal, PT/INR normal, CMP nonactionable, BNP improved from prior. Troponin was delayed due to lab error. Prior to troponin resulting, patient was reassessed after initial interventions and still states her pain is the same, unchanged. Morphine and Zofran administered. Repeat ECG personally interpreted demonstrates sinus bradycardia, rate 55, normal axis, normal AK and QTc, slight ST abnormalities are unchanged, no dynamic changes, no STEMI. I reached out to Dr. Douglas and discussed this case with him including the EKGs and patient's persistent pain despite multiple interventions. He recommends starting nitro drip and that if the patient feels worse with that that we can just turn it off. He recommended titrating the drip to improve her pain and that he would tolerate a systolic as low as 110. I appreciate his recommendations. Nitro drip started. After up titration, patient has had some relief of chest pain. Additional morphine and Zofran administered. D-dimer had resulted slightly elevated compared to previous so she was sent for CTA PE which was personally interpreted and I do not appreciate acute large PE. Radiology read pending at this time. Troponin undetectably low less than 0.01 which does offer some reassurance against acute cardiac abnormality as well as against right heart strain from PE. Serial troponins pending. Based on my personal interpretation of PE as well as the rest of the workup and patient requiring nitro drip for relief of symptoms, I believe she requires admission to the hospital at this time. She is agreeable to this plan. I discussed this case with the hospitalist including her symptoms, interventions, and recommendations from cardiology. Patient was graciously accepted for ICU admission. She was admitted in stable condition.
--- NOTE | 2024-11-23 03:36 | PC.NURSE ---
pt taken to ct scan at this time.
[2024-11-23] MEDS: SODIUM CHLORIDE 0.9% 10ML SYR (RAD ONLY) 10 ML IV (03:42)
[2024-11-23] MEDS: 0.9 % SODIUM CHLORIDE 50 ML VIAL IV (03:42)
[2024-11-23] MEDS: IOPAMIDOL-370 (76%);100ML BOTTLE 75 ML IV (03:43)
--- NOTE | 2024-11-23 03:45 | PC.NURSE ---
pt returned from ct scan, hooked back to monitoring equipment and back to nitro drip.
--- NOTE | 2024-11-23 04:17 | PC.NURSE ---
report given to Tata BAKER
--- NOTE | 2024-11-23 04:51 | P.HP_ITS ---
<Statement entered by Matt Alba MD - 11/24/24 08:59> Personally examined patient and agree with plan of care as outlined by the GRANULATOR. History of Present Illness *Admission Date: 11/23/24 *Reason for visit:: Chest pain *History of present illness: This is a 59-year-old female with a past medical history of CAD status post 2 cardiac stents, obesity, congestive heart failure, lymphedema, EVAN who presents emerged department today with chest pain. She reports sitting on her couch this evening and she developed midsternal chest pressure with radiation into her shoulder blades. She states that she developed worsening pain down her left arm which worried her given her prior events she recalls cardiac catheterization in July with stenting to the LAD with in-stent restenosis shortly after discharge. On that occasion she had similar pain upon representation to the emergency department when she was found to have in-stent restenosis. She denies any diaphoresis today. Denies any nausea or vomiting. She reports being taken off her Effient approximately 2 weeks ago secondary to varicose vein bleeding of her lower extremity. At that time she is saw Abhinav in office who took her off the Effient and kept her on her aspirin. Emergency Department workup mostly unremarkable. EKG unchanged from prior. She underwent multiple medications for chest pain including GI cocktail and morphine without significant relief. At that time she was placed on nitro and had relief in her pain. Dr. Douglas was consulted and recommends nitro drip titrate to pain. She is admitted to the hospital service at this time. [facility] Disclaimer: The information contained in this section may have been updated after the patient was seen, as this information can be updated by other users. Medical History Localized edema SOB (shortness of breath) Muscle cramping Edema Low back pain Screening mammogram for breast cancer Right otitis media Lightheadedness Left groin pain Chronic left hip pain Early satiety Epigastric pain Periumbilical abdominal pain Nausea UTI (urinary tract infection) Sprain and strain of left ankle Edema of left foot Left foot pain Peroneal tendinitis of left lower extremity Foot pain Fibromyalgia affecting multiple sites Coccygeal pain Left buttock pain Encounter for wellness examination Acute cystitis without hematuria Cellulitis of left forearm Dysuria Swelling of lower extremity Dysphagia Screening for osteoporosis Screening for breast cancer Oral candidiasis Acute cough Medicare annual wellness visit, subsequent Screening, deficiency anemia, iron Acute bronchitis Elevated uric acid in blood Elevated C-reactive protein (CRP) Localized swelling of left foot Left leg pain Left leg swelling Low vitamin B12 level Myalgia Arthralgia Esophageal stricture Dyspepsia Fibromyalgia Chronic leg pain Acute viral syndrome Nocturnal hypoxemia Callus of foot Keratosis Daytime somnolence Restless sleeper Plantar fasciitis, right Acute left flank pain Right ankle instability Retrocalcaneal bursitis of both feet Retrocalcaneal exostosis Partial tear of right Achilles tendon Tear of peroneal tendon of right foot Nontraumatic tear of right tibialis posterior tendon STEMI (ST elevation myocardial infarction) Unstable angina pectoris Chest pain Right knee pain Sacroiliitis Left ankle sprain Left ankle pain Left hip pain Bilateral knee pain Fall Hypokalemia Gastroenteritis Shoulder injury Near syncope Encounter for pre-operative cardiovascular clearance Foot neuroma Angina pectoris Normal colonoscopy Myocardial infarction Lung disease Depression CHF (congestive heart failure) Arrhythmia Anxiety Dizziness HTN (hypertension) Coronary artery disease Sinus bradycardia Obesity Abnormal EKG Dyspnea Palpitations GERD (gastroesophageal reflux disease) Hyperlipidemia Surgical History History of total knee replacement Hx of cardiac cath History of arthroscopy of right shoulder H/O arthroscopy of left knee Family History Other Family history of acute congestive heart failure Family history of cancer No significant family history Social History Smoking Status: Current every day smoker tobacco type: cigarettes packs per day: 1 second hand exposure: No alcohol intake: never substance use type: denies use current occupational status: other Travel in the last 8 weeks?: None household members: spouse housing: house 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 Other Medical History Have you received the Flu Vaccine for this season: No Have you received the Pneumonia Vaccine: No Review of Systems Review of Systems Review of systems:: pertinent systems reviewed and negative unless documented below Review of systems (narrative): Negative except for HPI Meds Home Medications and Allergies Home Medications ?Medication ?Instructions ?Recorded ?Confirmed ?Type ipratropium 0.5 mg-albuterol 3 mg 3 ml inhalation Q4-6 H PRN 01/23/24 11/21/24 Rx (2.5 mg base)/3 mL nebulization shortness of breath or wheezing soln #90 mL aspirin 81 mg capsule 81 mg PO DAILY 04/19/2411/05 History metoprolol succinate 25 mg See Rx Instructions .Route 06/27/24 11/21/24 Rx tablet,extended release 24 hr .COMPLEX #45 tabs prasugrel HCl 10 mg tablet 10 mg PO DAILY #36 tabs 11/21/24 Rx (Effient) cyclobenzaprine 10 mg tablet 10 mg PO TID #42 tabs 06/0111/21/24 Rx clotrimazole 10 mg jerad 10 mg mucous membrane 5XD 14 days 09/16/24 11/21/24 Rx #70 tabs potassium chloride 10 mEq 10 meq PO BID PRN with furos emide 09/20/24 11/21/24 Rx capsule,extended release #60 caps famotidine 20 mg tablet See Rx Instructions .Route 0 09/23/24 11/21/24 Rx .COMPLEX #100 tabs ropinirole 1 mg tablet See Rx Instructions .Route 0 09/23/24 11/21/24 Rx .COMPLEX #100 tabs furosemide 40 mg tablet 40 mg PO BID edema #60 tabs 09/26/24 11/21/24 Rx rosuvastatin 40 mg tablet (Crestor) 40 mg PO DAILY #30 tabs 10/08/24 11/21/24 Rx budesonide-formoterol HFA 160 See Rx Instructions .Rou te 10/21/24 11/21/24 Rx mcg-4.5 mcg/actuation aerosol .COMPLEX #10.2 grams inhaler (Symbicort) semaglutide (weight loss) 0.25 0.25 mg (0.5 mL) SQ WEE KLY #2 mL 10/21/24 11/21/24 Rx mg/0.5 mL subcutaneous pen injector (Wegovcarol ann) esomeprazole magnesium 40 mg See Rx Instructions .Rout e 10/28/24 11/21/24 Rx capsule,delayed release .COMPLEX #30 caps cyclobenzaprine 5 mg tablet 5 mg PO QID #120 tabs 11/05 11/29 Rx hydrocodone 10 mg-acetaminophen 1 tab PO TID #90 tabs 11/21/24 Rx 325 mg tablet New Prescriptions to Start Prescriptions: Allergies Allergy/AdvReac Type Severity Reaction Status Date / Time clopidogrel (From Plavix) Allergy Severe NON Verified 11/06/24 13:54 RESPONDER-STENT THROMBOSIS atorvastatin AdvReac Intermediate Abdominal Verified 11/06/24 13:54 Pain rosuvastatin (From Crestor) AdvReac Mild myalgia Verified 11/06/24 13:54 Exam Data for Last 24 hours Vital signs and Labs for Last 24 Hours: Temp Pulse Resp BP Pulse Ox O2 Del Method 97.8 F 52 L 18 121/69 95 Room Air 11/23/24 04:39 11/23/24 04:39 11/23/24 04:39 11/23/24 04:39 11/23/24 04:01 11/23/24 04:39 Laboratory Results - last 24 hr 11/23/24 01:10: WBC 12.7 H, RBC 4.70, Hgb 14.4, Hct 41.8, MCV 88.9, MCH 30.6, MCHC 34.4, RDW 12.8, Plt Count 208, MPV 11.5 H, Neut % (Auto) 51.9, Lymph % (Auto) 37.8, [place] % (Auto) 7.4, Eos % (Auto) 1.8, Baso % (Auto) 0.8, Neut # (Auto) 6.6, Lymph # (Auto) 4.8 H, [place] # (Auto) 0.9, Eos # (Auto) 0.2, Baso # (Auto) 0.1, PT 10.8, INR 0.97, D-Dimer 0.89 H, Sodium 139, Potassium 3.7, Chloride 105, Carbon Dioxide 26, Anion Gap 11.7, BUN 15, Creatinine 0.80, Estimated Creat Clear 75, Estimated GFR 74, Est GFR ( Amer) 89, Glucose 102 H, Calcium 9.3, Total Bilirubin 0.8, AST 29, ALT 15, Alkaline Phosphatase 74, Troponin I < 0.01, NT-Pro-B Natriuret Pep 295 H, Total Protein 7.6, Albumin 4.8, Globulin 2.8, Albumin/Globulin Ratio 1.7 I & O for Last 24 hours: Intake & Output 11/20/24 11/21/24 11/22/24 11/23/24 23:59 23:59 23:59 23:59 Intake Total 1.925 / 1.925 Balance 1.925 / 1.925 Weight 127.006 kg Constitutional Constitutional: no acute distress *Routine HEENT Exam Head: Present normocephalic Eye: Present EOMI and PERRL ENT: Present mucous membranes moist *Routine Neck Exam Neck: Present supple; Absent lymphadenopathy *Routine Respiratory Exam Respiratory: Present CTA bilaterally *Routine Cardiovascular Exam Cardiovascular: Present RRR *Routine Abdominal Exam Abdominal: Present soft and normoactive bowel sounds; Absent tenderness *Routine Rectal Exam Rectal:: deferred *Routine Genitalia Exam Genitalia:: deferred *Routine Extremities Exam Extremities: Present edema (+3 pitting edema to bilateral lower extremity); Absent cyanosis or clubbing *Routine Skin Exam Skin: Present warm; Absent rash *Routine Neurological Exam Neurological: Present alert and oriented X3 Assessment and Plan *Assessment and plan (1) Unstable angina: Status: Acute Category: Medical Code(s): I20.0 - Unstable angina (2) Elevated d-dimer: Status: Acute Category: Medical Code(s): R79.89 - Other specified abnormal findings of blood chemistry (3) Hyperlipidemia: Status: Chronic Qualifiers: Hyperlipidemia type: unspecified Qualified Code(s): E78.5 - Hyperlipidemia, unspecified Category: Medical Code(s): E78.5 - Hyperlipidemia, unspecified (4) Tobacco use: Status: Acute Category: Social Hx Code(s): Z72.0 - Tobacco use (5) HTN (hypertension): Status: Acute Qualifiers: Hypertension type: unspecified Qualified Code(s): I10 - Essential (primary) hypertension Category: Medical Code(s): I10 - Essential (primary) hypertension (6) Coronary artery disease: Status: Chronic Qualifiers: Coronary Disease-Associated Artery/Lesion type: [place] artery [place] vs. transplanted heart: [place] heart Associated angina: without angina Qualified Code(s): I25.10 - Atherosclerotic heart disease of [place] coronary artery without angina pectoris Category: Medical Code(s): I25.10 - Atherosclerotic heart disease of [place] coronary artery without angina pectoris Plan #Unstable angina #CAD History of LAD stent with in-stent restenosis. Was recently taken off Effient due to lower extremity varicose vein bleeding. Opponent negative, EKG without ischemia Continue nitro drip titrate to pain. Keep SBP greater than 110 Continue home aspirin Continue morphine as needed Cardiology consulted, greatly appreciate recommendations #Hypertension #Hyperlipidemia Continue home medications #GERD Continue famotidine #COPD Continue as needed bronchodilators #Tobacco use Wrongly encouraged cessation
--- NOTE | 2024-11-23 05:16 | PC.NURSE ---
pt arrived to ICU via wheelchair @[phone]
[2024-11-23 05:35] LABS: Troponin I 0.17 ng/ml (0.00-0.034)
[2024-11-23] MEDS: MORPHINE 2MG/ML SYRINGE 2 MG IV ×2 (05:57→23:21)
--- NOTE | 2024-11-23 06:24 | ECG_ITS ---
APPROVED REPORT Exam: Resting ECG HR:54 bpm ECG Measurements Heart Rate 54 AXES MN 148 P -1 QRSd 79 QRS 67 QT 433 T 99 QTc 419 Conclusion SINUS BRADYCARDIA Late R wave progression ABNORMAL ECG UNCONFIRMED REPORT Electronically signed by : Hemant Cardona MD 11/25/2024 08:00:17
--- NOTE | 2024-11-23 06:41 | PC.NURSE ---
DEMAND INSPECTOR notified that patient continues to complain of chest pain, morphine not effective. Nitro drip increased, ekg performed and new order for tylenol for headache. Will continue to monitor.
[2024-11-23 08:31] LABS: PTT Heparin (inpatient only) 25.1 Seconds (50-75)
[2024-11-23] MEDS: HEPARIN SODIUM,PORCINE/D5W 500 ML 20 UNIT IV (08:49)
[2024-11-23] MEDS: HEPARIN DRIP CONSULT 1 EACH NOTAPPLIC (08:50)
[2024-11-23 09:39] LABS: Hematocrit 39.8 % (37.0-47.0); Hemoglobin 13.5 g/dL (12.2-16.2); Immature Granulocytes % 0.4 %; Mean Corpuscular HGB Conc 33.9 g/dL (31.8-35.4); Mean Corpuscular Hemoglobin 30.3 pg (27.0-31.2); Mean Corpuscular Volume 89.2 fl (81-99); Nucleated Red Blood Cells % 0 %; Platelet Count 212 K/mm3 (142-424); Red Blood Count 4.46 M/mm3 (4.20-5.40); Red Cell Distribution Width-SD 41.6 fL; White Blood Count 10.6 K/mm3 (4.8-10.8)
[2024-11-23] MEDS: ACETAMINOPHEN 325MG TAB 650 MG PO ×2 (09:43→15:08)
[2024-11-23] MEDS: ASPIRIN EC 81MG TABLET 81 MG PO (09:44)
--- NOTE | 2024-11-23 09:49 | HMH.PHAHEP ---
[facility] Pharmacy Heparin Dosing Demographic Data Admission date:: 11/22/24 Date: 11/23/24 Time: 09:49 Allergies Allergy/AdvReac Type Severity Reaction Status Date / Time clopidogrel (From Plavix) Allergy Severe NON Verified 11/06/24 13:54 RESPONDER-STENT THROMBOSIS atorvastatin AdvReac Intermediate Abdominal Verified 11/06/24 13:54 Pain rosuvastatin (From Crestor) AdvReac Mild myalgia Verified 11/06/24 13:54 Height: 1.7 m Weight: 122.65 kg Indication Medication therapy:: Heparin Current Indications:: UNSTABLE ANGINA, ELEVATED TROPONIN Current Active Problems (Updated 11/23/24 @ 04:45 by Nerissa Salguero MD) Atypical chest pain (Acute) Unstable angina (Acute) Elevated d-dimer (Acute) Hyperlipidemia (Chronic) Tobacco use (Acute) Coronary artery disease (Chronic) HTN (hypertension) (Acute) CVA?: No Bleeding problem?: No Kidney disease?: No MT?: No Desired PTT range:: 50-75 seconds Labs Anticoagulation Lab Results:: 11/23/24 11/23/24 01:10 08:45 Hgb 14.4 13.5 Hct 41.8 39.8 Plt Count 208 212 Monitoring Dose Monitor 1: Date: 11/23/24 Time: 06:30 PTT Result:: 25.1 Infusion Rate:: INFUSION WAS STARTED AT 0849. ORDER WAS PLACED AT 0816 ONCE DAY SHIFT PHARMACIST CHECKED CONSULT ORDER FROM 0630 THIS AM. STARTED AT HEPARIN 1000 UNITS/HR (20 ML/HR) WITH NO BOLUS PER ORDER. Dose Monitor 2: Date: 11/23/24 Time: 14:00 PTT Result:: 29.1 Infusion Rate:: INCREASED RATE TO 1500 UNITS/HR (30 ML/HR) Core Measures Is INR > or = 2 at discharge?: No Most Recent Labs:: Laboratory Results - last 24 hr 11/23/24 01:10: WBC 12.7 H, RBC 4.70, Hgb 14.4, Hct 41.8, MCV 88.9, MCH 30.6, MCHC 34.4, RDW 12.8, Plt Count 208, MPV 11.5 H, Neut % (Auto) 51.9, Lymph % (Auto) 37.8, [place] % (Auto) 7.4, Eos % (Auto) 1.8, Baso % (Auto) 0.8, Neut # (Auto) 6.6, Lymph # (Auto) 4.8 H, [place] # (Auto) 0.9, Eos # (Auto) 0.2, Baso # (Auto) 0.1, PT 10.8, INR 0.97, D-Dimer 0.89 H, Sodium 139, Potassium 3.7, Chloride 105, Carbon Dioxide 26, Anion Gap 11.7, BUN 15, Creatinine 0.80, Estimated Creat Clear 75, Estimated GFR 74, Est GFR ( Amer) 89, Glucose 102 H, Calcium 9.3, Total Bilirubin 0.8, AST 29, ALT 15, Alkaline Phosphatase 74, Troponin I < 0.01, NT-Pro-B Natriuret Pep 295 H, Total Protein 7.6, Albumin 4.8, Globulin 2.8, Albumin/Globulin Ratio 1.7 11/23/24 04:57: Troponin I 0.17 H 11/23/24 06:30: APTT 25.1 L 11/23/24 08:45: WBC 10.6, RBC 4.46, Hgb 13.5, Hct 39.8, MCV 89.2, MCH 30.3, MCHC 33.9, RDW 12.7, Plt Count 212, MPV 11.4 H, Neut % (Auto) 48.9, Lymph % (Auto) 38.8, [place] % (Auto) 8.7, Eos % (Auto) 2.3, Baso % (Auto) 0.9, Neut # (Auto) 5.2, Lymph # (Auto) 4.1, [place] # (Auto) 0.9, Eos # (Auto) 0.2, Baso # (Auto) 0.1 Were Heparin and Warfarin started on the same day?: No If not, why?: STOPPED HEPARIN DRIP AND STARTED LOVENOX.
[2024-11-23] MEDS: METOPROLOL SUCCINATE XL 25MG TABLET 12.5 MG PO ×2 (09:55→14:25)
[2024-11-23 10:05] LABS: Anion Gap 11.0 mEq/L (5-15); Blood Urea Nitrogen 14 mg/dl (7-17); Calcium 9.5 mg/dl (8.4-10.2); Carbon Dioxide 25 mmol/L (22.0-30.0); Chloride 105 mmol/L (98-107); Creatinine Clearance Estimated 65 mL/min (50-200); Creatinine,Serum 0.90 mg/dl (0.52-1.04); Estimated Glomerular Filt Rate 65 ml/min (>60); GFR (African American) 78 ML/MIN (>60); Glucose 105 mg/dl (74-100); Potassium 4.0 mmoL/L (3.5-5.1); Sodium 137 mmol/L (136-145)
[2024-11-23 10:19] LABS: Troponin I 0.66 ng/ml (0.00-0.034)
--- NOTE | 2024-11-23 14:44 | EXP.PN ---
Subjective *Date: 11/23/24 *Time: 14:44 Exam Data for Last 24 hours Vital signs and Labs for Last 24 Hours: Temp Pulse Resp BP Pulse Ox O2 Del Method 97.7 F 58 L 15 105/63 L 93 L Room Air 11/23/24 12:01 11/23/24 14:30 11/23/24 14:30 11/23/24 14:30 11/23/24 14:30 11/23/24 14:22 Laboratory Results - last 24 hr 11/23/24 01:10: WBC 12.7 H, RBC 4.70, Hgb 14.4, Hct 41.8, MCV 88.9, MCH 30.6, MCHC 34.4, RDW 12.8, Plt Count 208, MPV 11.5 H, Neut % (Auto) 51.9, Lymph % (Auto) 37.8, [place] % (Auto) 7.4, Eos % (Auto) 1.8, Baso % (Auto) 0.8, Neut # (Auto) 6.6, Lymph # (Auto) 4.8 H, [place] # (Auto) 0.9, Eos # (Auto) 0.2, Baso # (Auto) 0.1, PT 10.8, INR 0.97, D-Dimer 0.89 H, Sodium 139, Potassium 3.7, Chloride 105, Carbon Dioxide 26, Anion Gap 11.7, BUN 15, Creatinine 0.80, Estimated Creat Clear 75, Estimated GFR 74, Est GFR ( Amer) 89, Glucose 102 H, Calcium 9.3, Total Bilirubin 0.8, AST 29, ALT 15, Alkaline Phosphatase 74, Troponin I < 0.01, NT-Pro-B Natriuret Pep 295 H, Total Protein 7.6, Albumin 4.8, Globulin 2.8, Albumin/Globulin Ratio 1.7 11/23/24 04:57: Troponin I 0.17 H 11/23/24 06:30: APTT 25.1 L 11/23/24 08:45: WBC 10.6, RBC 4.46, Hgb 13.5, Hct 39.8, MCV 89.2, MCH 30.3, MCHC 33.9, RDW 12.7, Plt Count 212, MPV 11.4 H, Neut % (Auto) 48.9, Lymph % (Auto) 38.8, [place] % (Auto) 8.7, Eos % (Auto) 2.3, Baso % (Auto) 0.9, Neut # (Auto) 5.2, Lymph # (Auto) 4.1, [place] # (Auto) 0.9, Eos # (Auto) 0.2, Baso # (Auto) 0.1, Sodium 137, Potassium 4.0, Chloride 105, Carbon Dioxide 25, Anion Gap 11.0, BUN 14, Creatinine 0.90, Estimated Creat Clear 65, Estimated GFR 65, Est GFR ( Amer) 78, Glucose 105 H, Calcium 9.5, Troponin I 0.66 H I & O for Last 24 hours: Intake & Output 11/20/24 11/21/24 11/22/24 11/23/24 23:59 23:59 23:59 23:59 Intake Total 242.450 / 242.450 Output Total 0 / 0 Balance 242.450 / 242.450 Weight 122.65 kg
[2024-11-23 14:58] LABS: PTT Heparin (inpatient only) 29.1 Seconds (50-75)
[2024-11-23] MEDS: PANTOPRAZOLE 40MG TABLET 40 MG PO (15:09)
[2024-11-23] MEDS: VENLAFAXINE XR 75MG CAPSULE 75 MG PO (15:09)
[2024-11-23] MEDS: IPRATROPIUM/ALBUTEROL 3 ML NEB IH (15:23)
[2024-11-23] MEDS: ENOXAPARIN 150MG/ML SYRINGE 125 MG SUBCUT (16:07)
--- NOTE | 2024-11-23 17:57 | PC.NURSE ---
All patient care and documentation completed by Mela ROSS, was completed under my direct supervision. Jenn López RN
[2024-11-23] MEDS: HYDROCODONE 10MG/APAP 325MG TAB 1 TAB PO (19:32)
[2024-11-23] MEDS: ROPINIROLE 1MG TABLET 1 MG PO (20:07)
[2024-11-23] MEDS: ROSUVASTATIN 10 MG 1 EACH PO (20:08)
[2024-11-24] VITALS (41 sets, daily range): BP systolic 91–147; BP diastolic 45–98; PULSE 50–74; RESP 11–18; TEMP 36.6–37.3; O2SAT 88–97; BMI 42.6
[2024-11-24] MEDS: HYDROMORPHONE 2MG/ML SYRINGE 2 MG IV (02:37)
--- NOTE | 2024-11-24 02:48 | PC.NURSE ---
Patient complains of pain to shoulders and legs 10/10 aching. SAFETY ENGINEER notified and new order for 1x dose of dilaudid. Will continue to monitor. Call watson in place.
[2024-11-24] MEDS: ENOXAPARIN 150MG/ML SYRINGE 125 MG SUBCUT ×2 (02:59→20:35)
[2024-11-24] MEDS: ACETAMINOPHEN 325MG TAB 650 MG PO ×2 (06:32→13:51)
--- NOTE | 2024-11-24 06:45 | PC.NURSE ---
Patient complains of nausea, notified MRI TECH, awaiting order for antiemetics.
[2024-11-24] MEDS: ONDANSETRON 4MG/2ML VIAL 4 MG IV (06:50)
[2024-11-24 07:04] LABS: Hematocrit 39.4 % (37.0-47.0); Hemoglobin 13.4 g/dL (12.2-16.2); Immature Granulocytes % 0.3 %; Mean Corpuscular HGB Conc 34.0 g/dL (31.8-35.4); Mean Corpuscular Hemoglobin 30.1 pg (27.0-31.2); Mean Corpuscular Volume 88.5 fl (81-99); Nucleated Red Blood Cells % 0 %; Platelet Count 190 K/mm3 (142-424); Red Blood Count 4.45 M/mm3 (4.20-5.40); Red Cell Distribution Width-SD 40.9 fL; White Blood Count 10.8 K/mm3 (4.8-10.8)
[2024-11-24 07:25] LABS: Alanine Aminotransferase 15 U/L (12-78); Albumin Level 4.4 g/dl (3.5-5.0); Albumin/Globulin Ratio 1.8 (1.1-1.8); Alkaline Phosphatase 66 U/L (38-126); Anion Gap 9.9 mEq/L (5-15); Aspartate Amino Transferase 36 U/L (14-36); Bilirubin,Total 0.7 mg/dl (0.2-1.3); Blood Urea Nitrogen 13 mg/dl (7-17); Calcium 9.6 mg/dl (8.4-10.2); Carbon Dioxide 26 mmol/L (22.0-30.0); Chloride 106 mmol/L (98-107); Cholesterol 144 mg/dl (140-200); Creatinine Clearance Estimated 73 mL/min (50-200); Creatinine,Serum 0.80 mg/dl (0.52-1.04); Estimated Glomerular Filt Rate 74 ml/min (>60); GFR (African American) 89 ML/MIN (>60); Globulin 2.4 g/dL (1.3-3.2); Glucose 113 mg/dl (74-100); HDL Cholesterol 55 mg/dl (40-60); Magnesium 1.8 mg/dl (1.6-2.3); Potassium 3.9 mmoL/L (3.5-5.1); Sodium 138 mmol/L (136-145); Total Protein,Serum 6.8 g/dl (6.3-8.2); Triglycerides 158 mg/dl (30-150)
[2024-11-24 07:42] LABS: Troponin I 0.64 ng/ml (0.00-0.034)
[2024-11-24 07:56] LABS: Thyroid Stimulating Hormone 1.33 uIU/mL (0.465-4.68)
[2024-11-24] MEDS: FAMOTIDINE 20MG TABLET 20 MG PO (08:03)
[2024-11-24] MEDS: ASPIRIN EC 81MG TABLET 81 MG PO (08:03)
[2024-11-24] MEDS: VENLAFAXINE XR 75MG CAPSULE 75 MG PO (08:03)
[2024-11-24] MEDS: METOPROLOL SUCCINATE XL 25MG TABLET 25 MG PO (08:08)
[2024-11-24 10:09] LABS: Hemoglobin A1C 6.4 % (4.0-6.0)
[2024-11-24] MEDS: IPRATROPIUM/ALBUTEROL 3 ML NEB IH ×2 (10:52→19:07)
--- NOTE | 2024-11-24 10:56 | P.PN_ITS ---
Subjective *Date: 11/24/24 *Time: 10:56 Interval history: Patient had a restless night, lower extremity pain from restless syndrome and lipedema. Increase propranolol. Continue nitro drip, n.p.o. at midnight for LHC in the morning. Hold morning Lovenox. Exam Data for Last 24 hours Vital signs and Labs for Last 24 Hours: Temp Pulse Resp BP Pulse Ox O2 Del Method 98.5 F 61 11 L 112/70 91 L Room Air 11/24/24 08:00 11/24/24 10:53 11/24/24 09:00 11/24/24 09:00 11/24/24 09:00 11/24/24 09:00 Laboratory Results - last 24 hr 11/23/24 13:58: APTT 29.1 L 11/24/24 06:45: WBC 10.8, RBC 4.45, Hgb 13.4, Hct 39.4, MCV 88.5, MCH 30.1, MCHC 34.0, RDW 12.7, Plt Count 190, MPV 11.2 H, Neut % (Auto) 55.7, Lymph % (Auto) 34.1, [place] % (Auto) 7.4, Eos % (Auto) 1.9, Baso % (Auto) 0.6, Neut # (Auto) 6.0, Lymph # (Auto) 3.7, [place] # (Auto) 0.8, Eos # (Auto) 0.2, Baso # (Auto) 0.1, Sodium 138, Potassium 3.9, Chloride 106, Carbon Dioxide 26, Anion Gap 9.9, BUN 13, Creatinine 0.80, Estimated Creat Clear 73, Estimated GFR 74, Est GFR ( Amer) 89, Glucose 113 H, Hemoglobin A1c 6.4 H, Calcium 9.6, Magnesium 1.8, Total Bilirubin 0.7, AST 36, ALT 15, Alkaline Phosphatase 66, Troponin I 0.64 H, Total Protein 6.8, Albumin 4.4, Globulin 2.4, Albumin/Globulin Ratio 1.8, Triglycerides 158 H, Cholesterol 144, LDL Cholesterol Direct 47.41 L, VLDL Cholesterol 32, HDL Cholesterol 55, Cholesterol/HDL Ratio 2.6, TSH 1.33 I & O for Last 24 hours: Intake & Output 11/21/24 11/22/24 11/23/2425 23:59 23:59 23:59 23:59 Intake Total 639.050 / 879.050 379.5 / 379.5 Output Total 0 / 0 0 / 0 Balance 639.050 / 879.050 379.5 / 379.5 Weight 122.65 kg 123.2 kg Constitutional Constitutional: obese *Routine HEENT Exam Head: Present normocephalic Eye: Present EOMI and PERRL ENT: Present mucous membranes moist *Routine Neck Exam Neck: Present supple; Absent lymphadenopathy *Routine Respiratory Exam Respiratory: Present CTA bilaterally *Routine Cardiovascular Exam Cardiovascular: Present RRR *Routine Abdominal Exam Abdominal: Present soft and normoactive bowel sounds; Absent tenderness *Routine Extremities Exam Extremities: Absent cyanosis, clubbing or edema Comments: Lower extremity lipedema. *Routine Skin Exam Skin: Present warm; Absent rash *Routine Neurological Exam Neurological: Present alert and oriented X3 Assessment and Plan *Assessment and plan (1) Unstable angina: Status: Acute Category: Medical Code(s): I20.0 - Unstable angina (2) Elevated d-dimer: Status: Acute Category: Medical Code(s): R79.89 - Other specified abnormal findings of blood chemistry (3) Hyperlipidemia: Status: Chronic Qualifiers: Hyperlipidemia type: unspecified Qualified Code(s): E78.5 - Hyperlipidemia, unspecified Category: Medical Code(s): E78.5 - Hyperlipidemia, unspecified (4) Tobacco use: Status: Acute Category: Social Hx Code(s): Z72.0 - Tobacco use (5) HTN (hypertension): Status: Acute Qualifiers: Hypertension type: unspecified Qualified Code(s): I10 - Essential (primary) hypertension Category: Medical Code(s): I10 - Essential (primary) hypertension (6) Coronary artery disease: Status: Chronic Qualifiers: Coronary Disease-Associated Artery/Lesion type: [place] artery [place] vs. transplanted heart: [place] heart Associated angina: without angina Qualified Code(s): I25.10 - Atherosclerotic heart disease of [place] coronary artery without angina pectoris Category: Medical Code(s): I25.10 - Atherosclerotic heart disease of [place] coronary artery without angina pectoris Red Carmona is a 59-year-old female with a medical history of CAD with stents, history of in-stent restenosis to LAD in 2021 with Plavix, current tobacco smoker presents with sudden on chest midsternal chest pain with radiation to the left shoulder and was admitted for NSTEMI on nitro drip. Of note, patient was #NSTEMI #CAD with stents #History of in-stent restenosis 2021 #PVCs #Hyperlipidemia #Current tobacco smoker ? Presented with sudden on chest midsternal chest pain, troponins peaked at 0.66. No STEMI on EKG. ? Recently evaluated by cardiology, discontinued Effient and continued aspirin due to significant varicose vein bleeding. Will follow-up with Dr. Ochoa for possible ligation. ? Patient has had a history of acute in-stent restenosis to the LAD in 2021 on Plavix. Has since been on Brilinta then switched to Effient due to shortness of breath. ? Spoke to Dr. Douglas, will continue nitro drip for plan to do LHC on 11/25/2024. Patient is currently chest pain-free on nitro drip. ? Continue nitro drip at 10 mcg/min. Blood pressure stable. ? Continue therapeutic Lovenox, hold morning dose. ? Continue metoprolol succinate 25 mg, aspirin 81 mg, rosuvastatin 10 mg. ? LDL improved from 161, now 47. A1c 6.4%, TSH normal. Counseled on smoke cessation, patient states she will try Chantix. Declines nicotine patch. ? ECHO September 2024 shows normal biventricular systolic function, no significant valvular issues or wall motion abnormalities. ? N.p.o. at midnight for LHC in the morning. #Prediabetes ? Hemoglobin A1c 6.4%. ? Will consider starting metformin on discharge. Blood sugar stable here. #Anxiety/depression ? Continue home venlafaxine 75 mg. #GERD ? Continue home PPI. #COPD ? Increased wheezing today, started DuoNebs every 6 hours. ? Continue home Symbicort if patient is able to bring it from home. #Lipedema #Restless leg syndrome ? Longstanding history of lower extremity symptomatic lipedema, advised patient to follow-up with lipedema specialist. ? Patient states vibration plates have been helpful in the past, encouraged to follow-up with PCP for further discussion. ? Follow-up iron panel restless legs. ? Increase ropinirole from 1 mg to 3 mg tonight. Full code DVT prophylaxis: Lovenox
[2024-11-24 11:39] LABS: Iron 80 ug/dL (37-170)
[2024-11-24 11:49] LABS: Total Iron Binding Capacity 327 ug/dL (265-497)
[2024-11-24 12:16] LABS: Ferritin 24.4 ng/ml (11.1-264)
[2024-11-24] MEDS: FERROUS SULFATE 325MG TABLET 325 MG PO (13:53)
[2024-11-24] MEDS: HYDROCODONE 10MG/APAP 325MG TAB 1 TAB PO ×2 (15:05→23:35)
--- NOTE | 2024-11-24 18:16 | PC.NURSE ---
Pt has rested in bed and in the chair throughout the shift. She is able to ambulate to the restroom with standby assist (r/t iv pump). Pt was also able to ambulate on the unit around the nurses station with staff assisting her. pt is a/o x 4, lungs clear. pt has had family at bedside off and on throughout the shift. pt has c/o pain/discomfort in her legs periodically. pt was restarted on her requip on previous nightshift and dose will be increased at 2100. pt was able to bath her self at bedside this shift as well. nad noted.
[2024-11-24] MEDS: PANTOPRAZOLE 40MG TABLET 40 MG PO (20:48)
[2024-11-24] MEDS: ROPINIROLE 1MG TABLET 3 MG PO (20:49)
[2024-11-24] MEDS: ROSUVASTATIN 10 MG 1 EACH PO (20:49)
--- NOTE | 2024-11-24 21:08 | PC.NURSE ---
Pt only wanted 2mg instead of 3mg of requip. Medication had already been opened. 1mg was wasted tom Denise RN.
[2024-11-24] MEDS: MORPHINE 2MG/ML SYRINGE 2 MG IV (21:59)
[2024-11-25] VITALS (68 sets, daily range): BP systolic 94–151; BP diastolic 54–98; PULSE 53–88; RESP 11–22; TEMP 36.6–37; O2SAT 90–100; BMI 42.7
[2024-11-25] MEDS: MORPHINE 2MG/ML SYRINGE 2 MG IV (04:16)
[2024-11-25] MEDS: NITROGLYCERIN IN 5 % DEXTROSE 250 ML 3 MG IV (04:16)
[2024-11-25 06:33] LABS: Anion Gap 8.0 mEq/L (5-15); Blood Urea Nitrogen 12 mg/dl (7-17); Calcium 9.5 mg/dl (8.4-10.2); Carbon Dioxide 27 mmol/L (22.0-30.0); Chloride 108 mmol/L (98-107); Creatinine Clearance Estimated 73 mL/min (50-200); Creatinine,Serum 0.80 mg/dl (0.52-1.04); Estimated Glomerular Filt Rate 74 ml/min (>60); GFR (African American) 89 ML/MIN (>60); Glucose 101 mg/dl (74-100); Potassium 4.0 mmoL/L (3.5-5.1); Sodium 139 mmol/L (136-145)
[2024-11-25 06:34] LABS: Alanine Aminotransferase 13 U/L (12-78); Albumin Level 4.1 g/dl (3.5-5.0); Alkaline Phosphatase 85 U/L (38-126); Aspartate Amino Transferase 29 U/L (14-36); Bilirubin,Total 0.7 mg/dl (0.2-1.3)
[2024-11-25 06:40] LABS: Hematocrit 38.6 % (37.0-47.0); Hemoglobin 12.7 g/dL (12.2-16.2); Mean Corpuscular Hemoglobin 29.3 pg (27.0-31.2); Mean Corpuscular Volume 88.9 fl (81-99); Red Blood Count 4.34 M/mm3 (4.20-5.40); White Blood Count 9.4 K/mm3 (4.8-10.8)
[2024-11-25 06:41] LABS: Immature Granulocytes % 0.4 %; Mean Corpuscular HGB Conc 32.9 g/dL (31.8-35.4); Nucleated Red Blood Cells % 0 %; Platelet Count 183 K/mm3 (142-424); Red Cell Distribution Width-SD 41.2 fL
[2024-11-25 07:39] LABS: Albumin/Globulin Ratio 1.7 (1.1-1.8); Globulin 2.4 g/dL (1.3-3.2); Magnesium 1.8 mg/dl (1.6-2.3); Total Protein,Serum 6.5 g/dl (6.3-8.2)
[2024-11-25] MEDS: FAMOTIDINE 20MG TABLET 20 MG PO (09:36)
[2024-11-25] MEDS: METOPROLOL SUCCINATE XL 25MG TABLET 25 MG PO (09:36)
[2024-11-25] MEDS: ASPIRIN EC 81MG TABLET 81 MG PO (09:36)
[2024-11-25] MEDS: FERROUS SULFATE 325MG TABLET 325 MG PO ×2 (09:36→20:56)
[2024-11-25] MEDS: VENLAFAXINE XR 75MG CAPSULE 75 MG PO (09:36)
--- NOTE | 2024-11-25 10:14 | EXP.CARD.CON ---
History of Present Illness History of Present Illness Consult date: 11/25/24 Requesting physician: Matt Alba Consult reason: chest pain Chief complaint: Chest pain History of present illness: This is a 59-year-old white female who presented to the emergency department with complaints of chest pain. She states that her chest pain started on Monday evening and describes it as a hard, dull, ache in the center of her chest. She states that it radiated to her bilateral arms and causes a numbness. Is that she is still having the pain and numbness in her left arm and shoulder. She states that this felt like her symptoms prior to her previous event in July requiring stenting to her LAD. Presented admission she has continued to have chest pain intermittently but mostly her left arm just being painful and feeling heavy. Her chest pain is associated with shortness of breath. She denies any nausea or vomiting. She denies any diaphoresis. She states that she did take some antacids at home and waited an hour. She had no improvement in her symptoms and decided to come to the emergency department. The patient states that she stopped taking her Effient approximately 2 weeks ago secondary to bleeding in her right lower extremity from a varicose vein. She has remained on aspirin. The patient does have an elevated troponin consistent with a non-STEMI and was admitted to the hospital for further evaluation. She remains on a nitroglycerin drip this morning. [facility] Disclaimer: The information contained in this section may have been updated after the patient was seen, as this information can be updated by other users. Medical History (Updated 11/25/24 @ 10:24 by Reba Sánchez APRN) Tobacco use Non-STEMI (non-ST elevated myocardial infarction) Localized edema SOB (shortness of breath) Muscle cramping Edema Low back pain Screening mammogram for breast cancer Right otitis media Lightheadedness Left groin pain Chronic left hip pain Early satiety Epigastric pain Periumbilical abdominal pain Nausea UTI (urinary tract infection) Sprain and strain of left ankle Edema of left foot Left foot pain Peroneal tendinitis of left lower extremity Foot pain Fibromyalgia affecting multiple sites Coccygeal pain Left buttock pain Encounter for wellness examination Acute cystitis without hematuria Cellulitis of left forearm Dysuria Swelling of lower extremity Dysphagia Screening for osteoporosis Screening for breast cancer Oral candidiasis Acute cough Medicare annual wellness visit, subsequent Screening, deficiency anemia, iron Acute bronchitis Elevated uric acid in blood Elevated C-reactive protein (CRP) Localized swelling of left foot Left leg pain Left leg swelling Low vitamin B12 level Myalgia Arthralgia Esophageal stricture Dyspepsia Fibromyalgia Chronic leg pain Acute viral syndrome Nocturnal hypoxemia Callus of foot Keratosis Daytime somnolence Restless sleeper Plantar fasciitis, right Acute left flank pain Right ankle instability Retrocalcaneal bursitis of both feet Retrocalcaneal exostosis Partial tear of right Achilles tendon Tear of peroneal tendon of right foot Nontraumatic tear of right tibialis posterior tendon STEMI (ST elevation myocardial infarction) Unstable angina pectoris Chest pain Right knee pain Sacroiliitis Left ankle sprain Left ankle pain Left hip pain Bilateral knee pain Fall Hypokalemia Gastroenteritis Shoulder injury Near syncope Encounter for pre-operative cardiovascular clearance Foot neuroma Angina pectoris Normal colonoscopy Myocardial infarction Lung disease Depression CHF (congestive heart failure) Arrhythmia Anxiety Dizziness HTN (hypertension) Coronary artery disease Sinus bradycardia Obesity Abnormal EKG Dyspnea Palpitations GERD (gastroesophageal reflux disease) Hyperlipidemia Surgical History History of total knee replacement Hx of cardiac cath History of arthroscopy of right shoulder H/O arthroscopy of left knee Family History Other Family history of acute congestive heart failure Family history of cancer No significant family history Social History Smoking Status: Current every day smoker tobacco type: cigarettes packs per day: 1 second hand exposure: No alcohol intake: never substance use type: denies use current occupational status: other Travel in the last 8 weeks?: None household members: spouse housing: house 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 Review of Systems Review of Systems Review of systems:: pertinent systems reviewed and negative unless documented below Constitutional Constitutional: Reports system reviewed and no additional complaints, except as documented and Reports fatigue Eyes Eyes: Reports system reviewed and no additional complaints, except as documented ENT Ears, Nose, Mouth, and Throat: Reports system reviewed and no additional complaints, except as documented *Cardiovascular Cardiovascular: Reports system reviewed and no additional complaints, except as documented, Reports chest pain, Reports chest pain at rest, Reports chest pain with activity, Denies diaphoresis, Reports dyspnea, Reports dyspnea on exertion and Reports radiating jaw, neck or arm pain *Respiratory Respiratory: Reports system reviewed and no additional complaints, except as documented, Reports dyspnea and Reports dyspnea on exertion *Gastrointestinal Gastrointestinal: Reports system reviewed and no additional complaints, except as documented *Genitourinary Genitourinary: Reports system reviewed and no additional complaints, except as documented *Musculoskeletal Musculoskeletal: Reports system reviewed and no additional complaints, except as documented Integumentary/Breasts Skin/Breast: Reports system reviewed and no additional complaints, except as documented *Neurologic Neurologic: Reports system reviewed and no additional complaints, except as documented Psychiatric Psychiatric: Reports system reviewed and no additional complaints, except as documented Endocrine Endocrine: Reports system reviewed and no additional complaints, except as documented and Reports fatigue Hematologic/Lymphatic Hematologic/Lymphatic: Reports system reviewed and no additional complaints, except as documented Allergic/Immunologic Allergic/Immunologic: Reports system reviewed and no additional complaints, except as documented Exam Data for Last 24 hours Vital signs and Labs for Last 24 Hours: Temp Pulse Resp BP Pulse Ox O2 Del Method 98.2 F 59 L 14 142/69 H 91 L Room Air 11/25/24 08:00 11/25/24 08:30 11/25/24 08:30 11/25/24 08:30 11/25/24 08:30 11/25/24 08:00 Laboratory Results - last 24 hr 11/24/24 06:45: Iron 80, TIBC 327, Iron Saturation 24.20285, Ferritin 24.4 11/25/24 05:54: WBC 9.4, RBC 4.34, Hgb 12.7, Hct 38.6, MCV 88.9, MCH 29.3, MCHC 32.9, RDW 12.6, Plt Count 183, MPV 11.5 H, Neut % (Auto) 50.1, Lymph % (Auto) 38.9, [place] % (Auto) 6.9, Eos % (Auto) 3.1, Baso % (Auto) 0.6, Neut # (Auto) 4.7, Lymph # (Auto) 3.7, [place] # (Auto) 0.7, Eos # (Auto) 0.3, Baso # (Auto) 0.1, Sodium 139, Potassium 4.0, Chloride 108 H, Carbon Dioxide 27, Anion Gap 8.0, BUN 12, Creatinine 0.80, Estimated Creat Clear 73, Estimated GFR 74, Est GFR ( Amer) 89, Glucose 101 H, Calcium 9.5, Magnesium 1.8, Total Bilirubin 0.7, AST 29, ALT 13, Alkaline Phosphatase 85, Total Protein 6.5, Albumin 4.1, Globulin 2.4, Albumin/Globulin Ratio 1.7 I & O for Last 24 hours: Intake & Output 11/22/24 11/23/24 11/24/24 11/25/24 23:59 23:59 23:59 23:59 Intake Total 639.050 / 879.050 854.4 / 854.4 28.85 / 28.85 Output Total 0 / 0 700 / 700 800 / 800 Balance 639.050 / 879.050 154.4 / 154.4 -771.15 / -771.15 Weight 270 lb 6.351 oz 271 lb 9.752 oz 272 lb 6.45 oz Constitutional Constitutional: no acute distress and morbidly obese *Routine HEENT Exam Head: Present normocephalic and atraumatic ENT: Present mucous membranes moist *Routine Neck Exam Neck: Present supple, full ROM and normal carotid upstroke; Absent JVD, carotid bruit or lymphadenopathy *Routine Respiratory Exam Respiratory: Present CTA bilaterally, normal respiratory effort, able to speak in complete sentences and symmetric chest movement *Routine Cardiovascular Exam Cardiovascular: Present RRR, Normal S1 and Normal S2; Absent murmur or gallop *Routine Abdominal Exam Abdominal: Present soft and normoactive bowel sounds; Absent tenderness, distended or organomegaly *Routine Extremities Exam Extremities: Present full ROM, pulses intact and normal capillary refill; Absent cyanosis, clubbing or edema *Routine Skin Exam Skin: Present intact and warm; Absent erythema *Routine Neurological Exam Neurological: Present alert, oriented X3 and CN II-XII intact; Absent sensory deficit or motor deficit Routine Psychiatric Exam Psychiatric: Present normal affect Meds Home Medications and Allergies Home Medications ?Medication ?Instructions ?Recorded ?Confirmed ?Type aspirin 81 mg capsule 81 mg PO DAILY 04/19/24 11/23/24 History furosemide 40 mg tablet 40 mg PO BID edema #60 tabs 09/26/24 11/23/24 Rx hydrocodone 10 mg-acetaminophen 1 tab PO TID #90 tabs 11/21/24 11/23/24 Rx 325 mg tablet budesonide-formoterol HFA 160 2 inh inhalation BID 11/23/24 11/23/24 History mcg-4.5 mcg/actuation aerosol inhaler (Symbicort) coenzyme Q10 200 mg capsule (Co 200 mg PO DAILY 11/23/24 11/23/24 History Q-10) cyclobenzaprine 5 mg tablet 5 mg PO QIDP PRN muscle spasms 11/23/24 11/23/24 History esomeprazole magnesium 40 mg 40 mg PO DAILY 11/23/24 11/23/24 History capsule,delayed release famotidine 20 mg tablet 20 mg PO DAILY 11/23/24 11/23/24 History metoprolol succinate 25 mg 12.5 mg PO DAILY 11/23/24 11/23/24 History tablet,extended release 24 hr ropinirole 1 mg tablet 1 mg PO HS 11/23/24 11/23/24 History venlafaxine 75 mg tablet 75 mg PO DAILY 11/23/24 11/23/24 History rosuvastatin 10 mg tablet 40 mg PO HS 11/24/24 11/24/24 History New Prescriptions to Start Prescriptions: Allergies Allergy/AdvReac Type Severity Reaction Status Date / Time clopidogrel (From Plavix) Allergy Severe NON Verified 11/06/24 13:54 RESPONDER-STENT THROMBOSIS atorvastatin AdvReac Intermediate Abdominal Verified 11/06/24 13:54 Pain rosuvastatin (From Crestor) AdvReac Mild myalgia Verified 11/06/24 13:54 Assessment and Plan *Assessment and plan (1) Unstable angina: Status: Acute Category: Medical Code(s): I20.0 - Unstable angina (2) Non-STEMI (non-ST elevated myocardial infarction): Status: Acute Category: Medical Code(s): I21.4 - Non-ST elevation (NSTEMI) myocardial infarction (3) Coronary artery disease: Status: Chronic Qualifiers: Associated angina: without angina Coronary Disease-Associated Artery/Lesion type: [place] artery [place] vs. transplanted heart: [place] heart Qualified Code(s): I25.10 - Atherosclerotic heart disease of [place] coronary artery without angina pectoris Category: Medical Code(s): I25.10 - Atherosclerotic heart disease of [place] coronary artery without angina pectoris (4) HTN (hypertension): Status: Acute Qualifiers: Hypertension type: unspecified Qualified Code(s): I10 - Essential (primary) hypertension Category: Medical Code(s): I10 - Essential (primary) hypertension (5) Tobacco use: Status: Acute Category: Social Hx Code(s): Z72.0 - Tobacco use (6) Hyperlipidemia: Status: Chronic Qualifiers: Hyperlipidemia type: unspecified Qualified Code(s): E78.5 - Hyperlipidemia, unspecified Category: Medical Code(s): E78.5 - Hyperlipidemia, unspecified (7) GERD (gastroesophageal reflux disease): Status: Chronic Qualifiers: Esophagitis presence: esophagitis presence not specified Qualified Code(s): K21.9 - Gastro-esophageal reflux disease without esophagitis Category: Medical Code(s): K21.9 - Gastro-esophageal reflux disease without esophagitis Plan Plan: 1. The patient was admitted to the hospital with a non-STEMI and unstable angina. Her troponins are elevated consistent with a non-STEMI and she remains on a nitroglycerin drip this morning. She is still having intermittent symptoms. Will plan to proceed with left cardiac catheterization today to evaluate her coronary arteries due to her non-STEMI, unstable angina and known coronary artery disease with a history of in-stent restenosis. 2. The patient has been educated the risk and benefits of proceeding with left cardiac catheterization. The patient verbalized understanding and is agreeable in proceeding with the procedure. 3. The patient is n.p.o. in preparation for left cardiac catheterization. 4. Coronary artery disease is present. Continue aspirin 81 mg daily. 5. She has been started on Lovenox for her non-STEMI. 6. Her blood pressure is well-controlled. Continue metoprolol. 7. Her LDL goal is less than 55. Her LDL is 47. Continue Crestor. 8. Continue Protonix for history of GERD. 9. Further recommendations will be made pending the patient response to treatment and the results of her left cardiac catheterization today. Thank you for the opportunity to help participate in the care of this patient. Recommendations and orders are per [place]. Addendum: Left cardiac catheterization shows patent coronary artery disease. The patient's LVEDP is 40. She needs aggressive diuresis. Will give her 2 mg of IV Bumex x 1 dose now and then a Bumex drip at 0.5 mg/h. AMB Pre-cath Criteria Pre-cath considerations: Clinical evaluation and indication for coronary angiography includes:: know CAD, new onset angina <= 2 months and worsening angina Patient is describing chest pain symtom as:: typical angina Clinical risk factors:: CAD, non-STEMI, history of in-stent restenosis, hypertension, hyperlipidemia, tobacco use How many antianginals is the patient taking?: 1 Patient is taking:: beta zohreh Risks and benefits:: We will plan to proceed with LHC/coronary angiography with right radial access. The patient has been educated on the risks and benefits of proceeding with LHC/coronary angiography with right radial access. The patient verbalized understanding and is agreeable in proceeding with the procedure.
--- NOTE | 2024-11-25 10:23 | IR_ITS ---
APPROVED REPORT Patient Location: Inpatient PROCEDURES Left heart catheterization Left ventriculogram Selective coronary angiogram INDICATION Acute non-ST elevation myocardial infarction, Known coronary artery disease Informed consent was obtained prior to the procedure. COMPLICATIONS NONE Estimated Blood Loss: LESS THAN 10 ML TECHNIQUE One percent lidocaine used to anesthetize the right anterior aspect of the wrist. The right radial artery was accessed via the Seldinger technique. A 6 [place] sheath was placed in the right radial artery. 2.5 mg of Verapamil, 800 mcg of nitroglycerin, 1mg Lidocaine and 5000 U Heparin were given through the arterial sheath. The JL3 catheter was also used to perform left heart catheterization, left ventriculogram and selective coronary angiogram. At the end of the procedure the sheath was removed good hemostasis was achieved using Traclet band, patient was transferred to the postop holding area in stable condition. ANGIOGRAPHIC RESULTS The left main artery Normal The left anterior descending artery Has stents in the proximal to mid segment which are widely patent with minimal in-stent restenosis with excellent proximal distal transitioning. There are tandem 40% stenoses in the mid LAD. A large first diagonal artery bifurcates proximally and has a stent bifurcating from the proximal LAD extending into the first diagonal artery which is widely patent and free of in-stent restenosis with excellent proximal distal transition The circumflex artery Large and dominant with proximal 30% stenoses as well as 30% stenosis in the first obtuse marginal artery. A large second obtuse marginal artery has a distal 60% stenosis just prior to the bend and before the vessel terminates. The right coronary artery Nondominant mild luminal regularities The [place]ASS ventriculogram reveals Hyperdynamic 70% The left ventricular end-diastolic pressure Severely elevated at 40 mmHg IMPRESSION Likely type II myocardial infarction from severely elevated LVEDP/acute CHF exacerbation from HFpEF Stable coronary disease as described above Hyperdynamic ventricle PLAN 1. Medical management for coronary disease 2. Aggressive risk factor modification 3. Treatment of HFpEF 4. Consideration for Cordella given type II myocardial infarction and decompensated heart failure Electronically signed by : Cole Douglas MD 11/25/2024 12:57:22
[2024-11-25] MEDS: 0.9 % SODIUM CHLORIDE 500 ML 25 ML IV (11:52)
[2024-11-25] MEDS: HEPARIN 1,000 UNITS/500ML NS (CATH LAB) 3000 UNIT IV (11:52)
[2024-11-25] MEDS: NITROGLYCERIN 800MCG/8ML SYR (CATH LAB) 800 MCG IA (11:52)
[2024-11-25] MEDS: VERAPAMIL 2.5MG/ML 2ML VIAL 2.5 MG IV (11:53)
[2024-11-25] MEDS: LIDOCAINE 1% 10ML MDV 10 ML IJ (11:53)
[2024-11-25] MEDS: HEPARIN 1,000 UNITS/ML 10ML VIAL (CATH LAB) 5000 UNIT IV (11:53)
[2024-11-25] MEDS: MIDAZOLAM HCL 1MG/ML 5ML VIAL 1 MG IV (11:53)
[2024-11-25] MEDS: FENTANYL 100MCG/2ML VIAL 50 MCG IV (11:54)
[2024-11-25] MEDS: IOPAMIDOL-370 (76%);100ML BOTTLE 50 ML IV (13:18)
[2024-11-25] MEDS: BUMETANIDE 1MG/4ML VIAL 2 MG IV (13:49)
[2024-11-25] MEDS: BUMETANIDE 10 MG in 0.9 % SODIUM CHLORIDE 60 ML 5 MG IV (14:01)
[2024-11-25] MEDS: SPIRONOLACTONE 25MG TABLET 25 MG PO (14:55)
--- NOTE | 2024-11-25 16:21 | EXP.PN ---
Subjective *Date: 11/25/24 *Time: 16:21 Interval history: Patient had lower extremity pain overnight, RLS contributing. But volume overload also contributing. Cardiology started IV Bumex diuresis for elevated LVEDP. Follow-up response. Exam Data for Last 24 hours Vital signs and Labs for Last 24 Hours: Temp Pulse Resp BP Pulse Ox O2 Del Method 97.9 F 88 20 110/64 93 L Room Air 11/25/24 15:50 11/25/24 15:50 11/25/24 15:50 11/25/24 15:50 11/25/24 15:50 11/25/24 15:50 Laboratory Results - last 24 hr 11/25/24 05:54: WBC 9.4, RBC 4.34, Hgb 12.7, Hct 38.6, MCV 88.9, MCH 29.3, MCHC 32.9, RDW 12.6, Plt Count 183, MPV 11.5 H, Neut % (Auto) 50.1, Lymph % (Auto) 38.9, [place] % (Auto) 6.9, Eos % (Auto) 3.1, Baso % (Auto) 0.6, Neut # (Auto) 4.7, Lymph # (Auto) 3.7, [place] # (Auto) 0.7, Eos # (Auto) 0.3, Baso # (Auto) 0.1, Sodium 139, Potassium 4.0, Chloride 108 H, Carbon Dioxide 27, Anion Gap 8.0, BUN 12, Creatinine 0.80, Estimated Creat Clear 73, Estimated GFR 74, Est GFR ( Amer) 89, Glucose 101 H, Calcium 9.5, Magnesium 1.8, Total Bilirubin 0.7, AST 29, ALT 13, Alkaline Phosphatase 85, Total Protein 6.5, Albumin 4.1, Globulin 2.4, Albumin/Globulin Ratio 1.7 I & O for Last 24 hours: Intake & Output 11/22/24 11/23/24 11/24/24 11/25/24 23:59 23:59 23:59 23:59 Intake Total 639.050 / 879.050 854.4 / 854.4 28.85 / 28.85 Output Total 0 / 0 700 / 700 1400 / 1400 Balance 639.050 / 879.050 154.4 / 154.4 -1371.15 / -1371.15 Weight 122.65 kg 123.2 kg 123.56 kg Microbiology Reports for the Last 24 Hours: Microbiology 11/23/24 05:15 Anus CRE Surveillance Culture - Final Negative Constitutional Constitutional: obese *Routine HEENT Exam Head: Present normocephalic Eye: Present EOMI and PERRL ENT: Present mucous membranes moist *Routine Neck Exam Neck: Present supple; Absent lymphadenopathy *Routine Respiratory Exam Respiratory: Present CTA bilaterally *Routine Cardiovascular Exam Cardiovascular: Present RRR *Routine Abdominal Exam Abdominal: Present soft and normoactive bowel sounds; Absent tenderness *Routine Extremities Exam Extremities: Absent cyanosis, clubbing or edema Comments: Lower extremity lipedema. *Routine Skin Exam Skin: Present warm; Absent rash *Routine Neurological Exam Neurological: Present alert and oriented X3 Assessment and Plan *Assessment and plan (1) Unstable angina: Status: Acute Category: Medical Code(s): I20.0 - Unstable angina (2) Elevated d-dimer: Status: Acute Category: Medical Code(s): R79.89 - Other specified abnormal findings of blood chemistry (3) Hyperlipidemia: Status: Chronic Qualifiers: Hyperlipidemia type: unspecified Qualified Code(s): E78.5 - Hyperlipidemia, unspecified Category: Medical Code(s): E78.5 - Hyperlipidemia, unspecified (4) Tobacco use: Status: Acute Category: Social Hx Code(s): Z72.0 - Tobacco use (5) HTN (hypertension): Status: Acute Qualifiers: Hypertension type: unspecified Qualified Code(s): I10 - Essential (primary) hypertension Category: Medical Code(s): I10 - Essential (primary) hypertension (6) Coronary artery disease: Status: Chronic Qualifiers: Coronary Disease-Associated Artery/Lesion type: [place] artery [place] vs. transplanted heart: [place] heart Associated angina: without angina Qualified Code(s): I25.10 - Atherosclerotic heart disease of [place] coronary artery without angina pectoris Category: Medical Code(s): I25.10 - Atherosclerotic heart disease of [place] coronary artery without angina pectoris Plan Mela Carmona is a 59-year-old female with a medical history of CAD with stents, history of in-stent restenosis to LAD in 2021 with Plavix, current tobacco smoker presents with sudden on chest midsternal chest pain with radiation to the left shoulder and was admitted for NSTEMI on nitro drip. #NSTEMI #CAD with stents #Elevated LVEDP #History of in-stent restenosis 2021 #PVCs #Hyperlipidemia #Current tobacco smoker ? Presented with sudden on chest midsternal chest pain, troponins peaked at 0.66. No STEMI on EKG. ? Recently evaluated by cardiology 11/06/24, discontinued Effient and continued aspirin due to significant varicose vein bleeding. Will follow-up with Dr. Ochoa for possible ligation. ? Patient has had a history of acute in-stent restenosis to the LAD in 2021 on Plavix. Has since been on Brilinta then switched to Effient due to shortness of breath. ? Angina initially treated with nitro drip with good response over the weekend. ? Cardiology consulted, s/p PCI revealing severely elevated LVEDP 40 mmHg and acute on chronic HFpEF. Dr. Whalen recommended aggressive diuresis. Started IV Bumex drip. ? Cardiology ordered IV Bumex 2 mg, started IV Bumex drip 0.5 mg/h. ? Continue metoprolol succinate 25 mg, aspirin 81 mg, rosuvastatin 10 mg. ? LDL improved from 161, now 47. A1c 6.4%, TSH normal. Counseled on smoke cessation, patient states she will try Chantix. Declines nicotine patch. ? ECHO September 2024 shows normal biventricular systolic function, no significant valvular issues or wall motion abnormalities. #Prediabetes #Obesity ? Hemoglobin A1c 6.4%. ? Will consider starting metformin on discharge. Blood sugar stable here. Would benefit from GLP-1 agonist on discharge given concomitant obesity. #Anxiety/depression ? Continue home venlafaxine 75 mg. #GERD ? Continue home PPI. #COPD ? Continue home Symbicort. #Lipedema #Restless leg syndrome ? Longstanding history of lower extremity symptomatic lipedema, advised patient to follow-up with lipedema specialist. ? Patient states vibration plates have been helpful in the past, encouraged to follow-up with PCP for further discussion. ? Iron panel normal for restless legs. ? Increased ropinirole from 1 mg to 3 mg tonight. IV Bumex diuresis will also help with lower extremity pain. Full code DVT prophylaxis: Lovenox
--- OUTSIDE RECORDS SUMMARY | 2024-11-25 16:37 | XMS_ITS | Encounter Summary ---
Author Organization [employer] ([place], [place], [place], [place]) Address [address] [place] [address] Care Team Providers Care Interactive Account Manager Name Role Phone Monroe Lopez MD Unavailable Familia Perez APRN Unavailable [phone] Angeles Hartman APRN Primary Care Provider Encounter Details Date Type Department Care Team (Late st Contact Info) Description 07/18/2024 Outside Orders [facility] Admitting [address] [place] [address] Monroe Lopez MD [address] [place] [address] Social History Tobacco Use Types Packs/Day Years [...] Date Regis rded Speak language other than B[place]udian at home Not on file 08/02/2023 Want [...] Description 12/31/2024 10:00 AM EDT Office Visit [facility] Neurology - [facility] [address] [place] [address] Jewel Nunez MD [address] [place] [address] documented as of this encounter Visit Diagnoses Not on filedocumented in this encounter Care Teams Interactive Account Manager Relationship Specialty Start Date End Date Angeles Hartman, VIRY [address] [phone] PCP - General Nurse Practitioner 07/19/24 Monroe Lopez MD [address] [place] [address] Sports Medicine 02/14/24 Familia Perez, SHAFT SINKER [address] [place] [address] Orthopedic Surgery 03/25/24 documented as of this encounter
--- OUTSIDE RECORDS SUMMARY | 2024-11-25 16:37 | XMS_ITS | Encounter Summary ---
Author Organization [facility] Address [address] [place] [address] Care Team Providers Care Hand Bookbinder Name Role Phone HartmanAngeles altamirano Janet BAIRES Primary Care Provider [phone] Encounter Details Date Type Department Care Team [...] documented as of this encounter Care Teams Hand Bookbinder Relationship Specialty Start Date End Date Angeles Hartman APRN [address] [place] [address] PCP - General 09/18/20 documented as of this encounter
--- OUTSIDE RECORDS SUMMARY | 2024-11-25 16:37 | XMS_ITS | Clinical Summary ---
Author Organization [facility] Address [address] [place] [address] Care Team Providers Care Water Project Manager Name Role Phone HartmanMargueritebetty Gonzales APRN Primary Care Provider [phone] Allergies Active Allergy Reactions Criticality Noted Date Comments Atorvastatin Other - please docum ent in the comment field High 05/10/2023 Other reaction(s): Abdominal Pain Clopidogrel Other - please docum ent in the comment field High 05/10/2023 Other reaction(s): NON RESPONDER-STENT THROMBOSIS Medications rosuvastatin (Crestor) 5 MG tablet 06/08/2022 Active furosemide (Lasix) 20 MG tablet Active HYDROcodone-acet aminophen ([place]) 5-325 MG tablet 10/31/2022 Active Symbicort 160-4.5 [...] Team Description 10/14/2024 11:40 AM EDT Consult [place] [facility] [address] [place] [address] Alonso Sutton MD Lumbar radiculopathy [...] 09/19/2017 [facility]-Zoster Vaccines (1 of 2) 09/19/2017 [id number] Vaccine (1 - season) 2024 [facility]-Influenza Vaccine [...] IgM Negative Negative 11/03/2022 10:47 AM EDT [facility] Blood Venous blood specimen / Unknown Venipuncture / Unknown 11/03/2022 8:27 AM EDT 11/03/2022 8:28 AM EDT Janiya Huggins APRN LAB BLOOD ORDERABLES Fi nal Result Performing Organization Address City/State/[facility] Co de Phone Number [facility] [address] [place] [address] from Last 3 Months or Most Recently Relevant to Health Maintenance Insurance MEDICARE Care Teams Water Project Manager Relationship Specialty Start Date End Date Angeles Hartman APRN [address] [place] [address] PCP - General 09/18/20
--- OUTSIDE RECORDS SUMMARY | 2024-11-25 16:37 | XMS_ITS | Encounter Summary ---
Author Organization [facility] Address [address] [id number] Care Team Providers Care Ortho Rn Name Role Phone Angeles Hartman APRN Primary Care Provider [phone]- [phone] Encounter Details Date Type Department Care Team [...] documented as of this encounter Care Teams Ortho Rn Relationship Specialty Start Date End Date Angeles Hartman APRN [address] [place] [address] PCP - General 09/18/20 documented as of this encounter
--- OUTSIDE RECORDS SUMMARY | 2024-11-25 16:38 | XMS_ITS | Referral Summary ---
Author Organization [employer] ([place], [place], [place], [place]) Address [address] [place] [address] Care Team Providers Care Import/Export Agent Name Role Phone Monroe Lopez MD Unavailable Familia Perez APRN Unavailable [phone] Angeles Hartman APRN Primary Care Provider [phone] Encounters Date Type Department Care Team Description 10/17/2024 2:30 PM EDT Office Visit [facility] Orthopedics [facility] [address] [place] [address] Monroe Lopez MD Sacroiliitis (HCC) (Primary Dx); Sacroiliac joint dysfunction of left side 10/15/2024 11:00 AM EDT Office Visit [address] [address] Familia Perez APRN Sacroiliac joint dysfunction of left side (Primary Dx); Polyneuropathy 10/09/2024 1:30 PM EDT - 10/09/2024 11:59 PM EDT Hospital Encounter [facility] [address] [facility] [address] [place] [address] Monroe Lopez MD Radiculopathy of [...] Date Regis rded Speak language other than Mauritanian at home Not on file 08/02/2023 Want [...] Description 12/31/2024 10:00 AM EDT Office Visit [facility] [address] [place] [address] Jewel Nunez MD [address] [facility] [address] [place] [address] Procedures Procedure Name Priority Date/Time Associated Diagnosis [...] Lopez MD IM MRI ORDERABLES Final Result from Last 3 Months Insurance [facility] MEDICARE ADVANTAGE Care Teams Import/Export Agent Relationship Specialty Start Date End Date Angeles Hartman APRN [address] [address] PCP - General Nurse Practitioner 07/19/24 Monroe Lopez MD [address] [place] [id number] Sports Medicine 02/14/24 Familia Perez, ELECTRICAL LINESWORKER [address] [place], [place] [id number] Orthopedic Surgery 03/25/24
--- OUTSIDE RECORDS SUMMARY | 2024-11-25 16:38 | XMS_ITS | Clinical Summary ---
Author Organization [employer] ([place], [place], [place], [place]) Address [address] [place] [address] Care Team Providers Care Waste Treatment Operator Name Role Phone Monroe Lopez MD Unavailable Familia Perez APRN Unavailable [phone] Angeles Hartman APRN Primary Care Provider Allergies Active Allergy Reactions Criticality Noted Date [...] Description 10/17/2024 2:30 PM EDT Office Visit [facility] Orthopedics - [address] [place] [address] Monroe Lopez MD Sacroiliitis (HCC) (Primary Dx); Sacroiliac joint dysfunction of left side 10/15/2024 11:00 AM EDT Office Visit [facility]oped[facility] [address] [place] [address] Familia Perez APRN Sacroiliac joint dysfunction of left side (Primary Dx); Polyneuropathy 10/09/2024 1:30 PM EDT - 10/09/2024 11:59 PM EDT Hospital Encounter [facility] [address] [facility] [address] [place] [address] Monroe Lopez MD Radiculopathy of [...] Date Regis rded Speak language other than Niuean at home Not on file 08/02/2023 Want [...] Description 12/31/2024 10:00 AM EDT Office Visit [facility] Neurology - [place] [address] [facility] [address] [place] [address] Jewel Nunez MD [address] [place] [address] Health Maintenance Due Date Last Done Comments [...] (Zoster) (1 of 2) 09/19/2017 COVID-19 VACCINE ( - season) 2024 Medicare Initial AWV [id number] [...] Final Result from Last 3 Months Insurance [facility] MEDICARE ADVANTAGE Care Teams Waste Treatment Operator Relationship Specialty Start Date End Date Angeles Hartman, VIRY [address] [address] PCP - General Nurse Practitioner 07/19/24 Monroe Lopez MD [address] [place] [address] Sports Medicine 02/14/24 Familia Perez, PORCELAIN ENAMEL REPAIRER [address] [place] [address] Orthopedic Surgery 03/25/24
--- NOTE | 2024-11-25 16:46 | PC.NURSE ---
arrived by w/c from ICU
[2024-11-25] MEDS: HYDROCODONE 10MG/APAP 325MG TAB 1 TAB PO (18:01)
[2024-11-25] MEDS: FORMOTEROL IH (18:32)
[2024-11-25] MEDS: BUDESONIDE IH (18:32)
[2024-11-25] MEDS: ROPINIROLE 1MG TABLET 3 MG PO (20:56)
[2024-11-25] MEDS: PANTOPRAZOLE 40MG TABLET 40 MG PO (20:56)
[2024-11-25] MEDS: ROSUVASTATIN 10 MG 1 EACH PO (20:57)
[2024-11-25] MEDS: ONDANSETRON 4MG/2ML VIAL 4 MG IV (22:02)
--- NOTE | 2024-11-25 22:03 | PC.NURSE ---
patient is c/o abd cramps, sweating, and nausea - patient was gave a cold rag and emesis bad, administered zofran and room temp decreased. patient now laying in bed and feeling better.
[2024-11-26] VITALS: BP 125/73; PULSE 60; PULSE 94; RESP 17; TEMP 36.8; O2SAT 94
[2024-11-26] MEDS: HYDROCODONE 10MG/APAP 325MG TAB 1 TAB PO ×2 (02:13→08:01)
[2024-11-26 03:45] VITALS: BP 123/66; PULSE 66; RESP 15; TEMP 36.7; O2SAT 94; BMI 42.7
--- NOTE | 2024-11-26 03:46 | PC.NURSE ---
Linen bags & trash bags taken out, ice filled , bedside table organized and cleaned. Pt does not need anything at this time. [phone]
[2024-11-26 04:00] VITALS: PULSE 65
--- NOTE | 2024-11-26 04:43 | EXP.EVENT.NO ---
Problem: Patient reported to nurse that she was starting to have some cramping., Patient was started on a Bumex drip) nurse almost 3 L was taken off in the daytime and since midnight almost another 2 L.. Patient's heart rate in the high 50s, exam: Went in to see the patient with the nurse we able to wake her up examined her lower extremities are extremely soft no signs of edema anywhere. Does have brisk capillary refill to both distal extremities and to both hands. Cardiac sounds basically normal lungs completely clear. Plan: Will stop the Bumex drip at this time, as I feel that we have achieved sure that the patient is out of any congestive heart failure. Patient also on beta-zohreh., Will wait for labs in the morning to see if there is any necessary need to replace potassium or magnesium. Patient is stable at this time having no signs of chest discomfort, only complaint is cramping to lower legs
[2024-11-26] MEDS: BUDESONIDE IH (05:53)
[2024-11-26] MEDS: FORMOTEROL IH (05:53)
[2024-11-26 05:54] VITALS: PULSE 62
--- NOTE | 2024-11-26 06:17 | PC.NURSE ---
Patient does not need anything at this time.
[2024-11-26 07:12] LABS: Hematocrit 43.3 % (37.0-47.0); Hemoglobin 15.0 g/dL (12.2-16.2); Immature Granulocytes % 0.4 %; Mean Corpuscular HGB Conc 34.6 g/dL (31.8-35.4); Mean Corpuscular Hemoglobin 30.4 pg (27.0-31.2); Mean Corpuscular Volume 87.8 fl (81-99); Nucleated Red Blood Cells % 0 %; Platelet Count 202 K/mm3 (142-424); Red Blood Count 4.93 M/mm3 (4.20-5.40); Red Cell Distribution Width-SD 40.1 fL; White Blood Count 10.7 K/mm3 (4.8-10.8)
[2024-11-26 07:19] LABS: Alanine Aminotransferase 17 U/L (12-78); Albumin Level 5.0 g/dl (3.5-5.0); Albumin/Globulin Ratio 1.5 (1.1-1.8); Alkaline Phosphatase 82 U/L (38-126); Anion Gap 12.2 mEq/L (5-15); Aspartate Amino Transferase 36 U/L (14-36); Bilirubin,Total 1.0 mg/dl (0.2-1.3); Blood Urea Nitrogen 14 mg/dl (7-17); Calcium 10.2 mg/dl (8.4-10.2); Carbon Dioxide 31 mmol/L (22.0-30.0); Chloride 97 mmol/L (98-107); Creatinine Clearance Estimated 53 mL/min (50-200); Creatinine,Serum 1.10 mg/dl (0.52-1.04); Estimated Glomerular Filt Rate 51 ml/min (>60); GFR (African American) 62 ML/MIN (>60); Globulin 3.3 g/dL (1.3-3.2); Glucose 124 mg/dl (74-100); Magnesium 1.5 mg/dl (1.6-2.3); Potassium 3.2 mmoL/L (3.5-5.1); Sodium 137 mmol/L (136-145); Total Protein,Serum 8.3 g/dl (6.3-8.2)
[2024-11-26] MEDS: POTASSIUM CHLORIDE 20MEQ TAB 40 MEQ PO ×2 (07:58→12:32)
[2024-11-26] MEDS: MAGNESIUM SULFATE IN WATER 2 GM/50 ML PIGGYBACK IV ×2 (07:58→09:25)
[2024-11-26 08:00] VITALS: BP 137/82; PULSE 68; PULSE 70; RESP 22; TEMP 36.7; O2SAT 96
[2024-11-26] MEDS: FAMOTIDINE 20MG TABLET 20 MG PO (08:01)
[2024-11-26] MEDS: VENLAFAXINE XR 75MG CAPSULE 75 MG PO (08:01)
[2024-11-26] MEDS: ASPIRIN EC 81MG TABLET 81 MG PO (08:01)
[2024-11-26] MEDS: METOPROLOL SUCCINATE XL 25MG TABLET 25 MG PO (08:01)
[2024-11-26] MEDS: POLYETHYLENE GLYCOL 3350 17 GM PACKET PO (08:03)
[2024-11-26] MEDS: SPIRONOLACTONE 25MG TABLET 25 MG PO (08:08)
--- NOTE | 2024-11-26 10:37 | P.PN_ITS ---
Documented by User: RAMOS Soriano 11/26/24 10:42 Subjective Subjective Date: 11/26/24 Time: 09:30 Interval history: Left heart cath yesterday showed patent stents but severely elevated EDP. Patient has diuresed over 3 L since admission and reports feeling significantly better. States her legs have never looked so thin. Exam Data for Last 24 hours Vital signs and Labs for Last 24 Hours: Temp Pulse Resp BP Pulse Ox O2 Del Method 98.1 F 68 22 137/82 96 Room Air 11/26/24 08:00 11/26/24 08:00 11/26/24 08:00 11/26/24 08:00 11/26/24 08:00 11/26/24 09:10 Laboratory Results - last 24 hr 11/26/24 06:17: WBC 10.7, RBC 4.93, Hgb 15.0, Hct 43.3, MCV 87.8, MCH 30.4, MCHC 34.6, RDW 12.4, Plt Count 202, MPV 12.0 H, Neut % (Auto) 55.9, Lymph % (Auto) 33.3, [place] % (Auto) 6.9, Eos % (Auto) 2.9, Baso % (Auto) 0.6, Neut # (Auto) 6.0, Lymph # (Auto) 3.6, [place] # (Auto) 0.7, Eos # (Auto) 0.3, Baso # (Auto) 0.1, Sodium 137, Potassium 3.2 L, Chloride 97 L, Carbon Dioxide 31 H, Anion Gap 12.2, BUN 14, Creatinine 1.10 H D, Estimated Creat Clear 53, Estimated GFR 51 L, Est GFR ( Amer) 62 D, Glucose 124 H, Calcium 10.2, Magnesium 1.5 L D, Total Bilirubin 1.0, AST 36, ALT 17 D, Alkaline Phosphatase 82, Total Protein 8.3 H D , Albumin 5.0 D, Globulin 3.3 H, Albumin/Globulin Ratio 1.5 I & O for Last 24 hours: Intake & Output 11/23/24 11/24/24 11/25/24 11/26/24 23:59 23:59 23:59 23:59 Intake Total 639.050 / 879.050 854.4 / 854.4 345.85 / 705.85 733.25 / 733.25 Output Total 0 / 0 700 / 700 2900 / 3500 1999 / 1999 Balance 639.050 / 879.050 154.4 / 154.4 -2554.15 / -2794.15 -1266.75 / -1266.75 Weight 270 lb 6.351 oz 271 lb 9.752 oz 272 lb 6.45 oz 272 lb 1.6 oz Microbiology Reports for the Last 24 Hours: Microbiology 11/23/24 05:15 Anus CRE Surveillance Culture - Final Negative Constitutional Constitutional: no acute distress and cooperative *Routine HEENT Exam Eye: Present PERRL *Routine Respiratory Exam Respiratory: Present CTA bilaterally; Absent accessory muscle use, wheezes or crackles *Routine Cardiovascular Exam Cardiovascular: Present RRR, Normal S1 and Normal S2; Absent murmur, gallop or rubs *Routine Abdominal Exam Abdominal: Present soft; Absent tenderness *Routine Extremities Exam Extremities: Present pulses intact; Absent cyanosis or edema *Routine Skin Exam Skin: Present intact; Absent erythema or wounds *Routine Neurological Exam Neurological: Present alert and oriented X3 Routine Psychiatric Exam Psychiatric: Present cooperative Progress Note: A&P Assessment and plan (1) Acute on chronic heart failure with preserved ejection fraction (HFpEF): Status: Acute (2) Coronary artery disease: Status: Chronic (3) Hyperlipidemia: Status: Chronic (4) Tobacco use: Status: Acute (5) HTN (hypertension): Status: Acute Assessment and Plan Assessment and Plan for All Diagnoses:: Acute on Chronic HFpEF - known dx, acute exacerbations - severely elevated EDP, mild biatrial dilation - diuresed 3L here and feeling much better - cont PRN diuretics. add Aldactone 25mg daily at discharge - again discussed importance of weight loss, tob cessation, diet change, and CPAP compliance MV-CAD - last stents 07/2024 - elevated Trop and CP this admission - [facility] here shows patent stents - cont ASA, Statin, BB. (Off Effient due to recent bleeding complication in her leg) Morbid Obesity, BMI 42 - Again discussed weight loss via diet and exercise - Reassess GLP-1 Tobacco use - Again encouraged cessation Low K/Mg - secondary to diuresis - repletion in progress Patient is CV stable for discharge home. Recommend resuming all home meds adding Aldactone 25 mg 1 p.o. daily. Neurologist 1 to 2 weeks. She has been instructed on checking daily weights and Documented by User: Reba [email or web address] 11/26/24 12:54 Subjective Subjective Interval history: Left heart cath yesterday showed patent stents but severely elevated EDP. Patient has diuresed over 3 L since admission and reports feeling significantly better. States her legs have never looked so thin. Denies chest pain or pressure. Shortness of breath is significantly improved and edema has significantly improved. Denies fever, chills, nausea, vomiting, diarrhea. Exam Data for Last 24 hours Vital signs and Labs for Last 24 Hours: Temp Pulse Resp BP Pulse Ox O2 Del Method 98.1 F 68 22 137/82 96 Room Air 11/26/24 08:00 11/26/24 08:00 11/26/24 08:00 11/26/24 08:00 11/26/24 08:00 11/26/24 09:10 Laboratory Results - last 24 hr 11/26/24 06:17: WBC 10.7, RBC 4.93, Hgb 15.0, Hct 43.3, MCV 87.8, MCH 30.4, MCHC 34.6, RDW 12.4, Plt Count 202, MPV 12.0 H, Neut % (Auto) 55.9, Lymph % (Auto) 33.3, [place] % (Auto) 6.9, Eos % (Auto) 2.9, Baso % (Auto) 0.6, Neut # (Auto) 6.0, Lymph # (Auto) 3.6, [place] # (Auto) 0.7, Eos # (Auto) 0.3, Baso # (Auto) 0.1, Sodium 137, Potassium 3.2 L, Chloride 97 L, Carbon Dioxide 31 H, Anion Gap 12.2, BUN 14, Creatinine 1.10 H D, Estimated Creat Clear 53, Estimated GFR 51 L, Est GFR ( Amer) 62 D, Glucose 124 H, Calcium 10.2, Magnesium 1.5 L D, Total Bilirubin 1.0, AST 36, ALT 17 D, Alkaline Phosphatase 82, Total Protein 8.3 H D , Albumin 5.0 D, Globulin 3.3 H, Albumin/Globulin Ratio 1.5 I & O for Last 24 hours: Intake & Output 11/23/24 11/24/24 11/25/24 11/26/24 23:59 23:59 23:59 23:59 Intake Total 639.050 / 879.050 854.4 / 854.4 345.85 / 705.85 733.25 / 733.25 Output Total 0 / 0 700 / 700 2900 / 3500 1999 / 1999 Balance 639.050 / 879.050 154.4 / 154.4 -2554.15 / -2794.15 -1266.75 / -1266.75 Weight 270 lb 6.351 oz 271 lb 9.752 oz 272 lb 6.45 oz 272 lb 1.6 oz Microbiology Reports for the Last 24 Hours: Microbiology 11/23/24 05:15 Anus CRE Surveillance Culture - Final Negative Constitutional Constitutional: morbidly obese Progress Note: A&P Assessment and plan (1) Acute on chronic heart failure with preserved ejection fraction (HFpEF): Status: Acute (2) Coronary artery disease: Status: Chronic (3) Hyperlipidemia: Status: Chronic (4) Tobacco use: Status: Acute (5) HTN (hypertension): Status: Acute Assessment and Plan Assessment and Plan for All Diagnoses:: Plan: 1. The patient was admitted to the hospital with a non-STEMI and unstable angina. Her troponins are elevated consistent with a non-STEMI. She underwent left cardiac catheterization yesterday and found to have patent coronary artery disease. 2. Her LVEDP was significantly elevated at 40 mmHg. She was treated with a Bumex drip overnight and had a 3 L diuresis. She states that her edema has significantly improved as well as her shortness of breath. Stop Bumex drip and start her on Bumex 2 mg p.o. daily. 3. Will also send her home on spironolactone 25 mg daily with plans to switch her over to Kerendia if her potassium remains stable. She will need a 48-hour washout of the spironolactone when we switch her over to Kerendia. 4. Coronary artery disease is present. Continue aspirin 81 mg daily. 5. Her blood pressure is well-controlled. Continue metoprolol. 6. Her LDL goal is less than 55. Her LDL is 47. Continue Crestor. 7. Continue Protonix for history of GERD. 8. Weight loss is highly encouraged. Consider GLP-1 on an outpatient basis. 9. Tobacco cessation is highly advised and counseled. 10. Hypokalemia and hypomagnesia him today. This is being replaced at this time. 11. No further recommendations at this time from a cardiac standpoint. The patient can be discharged home today from a cardiac standpoint with follow-up in cardiology clinic next week. The patient will need to be discharged on the following cardiac medications: Aspirin 81 mg daily Bumex 2 mg p.o. daily Metoprolol XL 25 mg daily Rosuvastatin 40 mg daily Spironolactone 25 mg daily (with plans to switch her to Kerendia on an outpatient basis after 48-hour washout period) Thank you for the opportunity to help participate in the care of this patient. Recommendations and orders are per Eduar.
[2024-11-26 11:59] VITALS: BP 129/71; PULSE 69; RESP 18; TEMP 36.5; O2SAT 96
--- NOTE | 2024-11-26 12:05 | EXP.DC.SUM ---
General Admission date:: 11/23/24 Discharge date: 11/26/24 HPI HPI HPI: This is a 59-year-old female with a past medical history of CAD status post 2 cardiac stents, obesity, congestive heart failure, lymphedema, EVAN who presents emerged department today with chest pain. She reports sitting on her couch this evening and she developed midsternal chest pressure with radiation into her shoulder blades. She states that she developed worsening pain down her left arm which worried her given her prior events she recalls cardiac catheterization in July with stenting to the LAD with in-stent restenosis shortly after discharge. On that occasion she had similar pain upon representation to the emergency department when she was found to have in-stent restenosis. She denies any diaphoresis today. Denies any nausea or vomiting. She reports being taken off her Effient approximately 2 weeks ago secondary to varicose vein bleeding of her lower extremity. At that time she is saw Abhinav in office who took her off the Effient and kept her on her aspirin. Emergency Department workup mostly unremarkable. EKG unchanged from prior. She underwent multiple medications for chest pain including GI cocktail and morphine without significant relief. At that time she was placed on nitro and had relief in her pain. Dr. Douglas was consulted and recommends nitro drip titrate to pain. She is admitted to the hospital service at this time. Hospital Course Hospital Course Hospital Course: Mela Carmona is a 59-year-old female with a medical history of CAD with stents, history of in-stent restenosis to LAD in 2021 with Plavix, current tobacco smoker presents with sudden on chest midsternal chest pain with radiation to the left shoulder and was admitted for NSTEMI on nitro drip. Symptoms improved after this. Repeat left heart cath showed patent stents. Stable to discharge home with medication adjustments. Problems addressed as follows: #NSTEMI type II secondary to hypertension, volume overload, and HFpEF exacerbation #CAD with stents #Elevated LVEDP #History of in-stent restenosis 2021 #PVCs #Hyperlipidemia #Current tobacco smoker ? Presented with sudden on chest midsternal chest pain, troponins peaked at 0.66. No STEMI on EKG. Recently evaluated by cardiology 11/06/24, discontinued Effient and continued aspirin due to significant varicose vein bleeding. Will follow-up with Dr. Ochoa for possible ligation. Patient has had a history of acute in-stent restenosis to the LAD in 2021 on Plavix. Has since been on Brilinta then switched to Effient due to shortness of breath. Angina initially treated with nitro drip with good response over the weekend. Cardiology consulted, s/p PCI revealing severely elevated LVEDP 40 mmHg and acute on chronic HFpEF. Dr. Douglas recommended aggressive diuresis. Started IV Bumex drip. Responded very well with -5 L during admission. Transitioned to oral Bumex with addition of Aldactone. Cardiology evaluated on Monday. Continue metoprolol at increased dose of 25 mg succinate daily, continue Bumex 2 mg daily, initiate spironolactone 25 mg daily, continue stool increase dose of 40 mg nightly and continue aspirin 81 mg daily. - LDL improved from 161, now 47. A1c 6.4%, TSH normal. Counseled on smoking cessation, patient states she will try Chantix or going cold turkey. She is precontemplative at this time. Declined nicotine patches during admission. #Prediabetes #Obesity ? Hemoglobin A1c 6.4%. Given patient's obesity, recommend discussion with PCP about initiating GLP-1 as an outpatient for improved glucose control, weight loss, cardiac benefit. #Anxiety/depression: Continue home venlafaxine 75 mg. #GERD: Continue home PPI. #COPD: Continue home Symbicort. #Lipedema #Restless leg syndrome ? Longstanding history of lower extremity symptomatic lipedema, advised patient to follow-up with lipedema specialist. Patient states vibration plates have been helpful in the past, encouraged to follow-up with PCP for further discussion. Iron panel normal for restless legs. Trialed an increase in ropinirole during admission, no significant change in symptoms. Morbid Obesity, BMI 42 - Again discussed weight loss via diet and exercise.strongly encouraged evaluation for GLP-1 as an outpatient. Complicates all aspects of her care. Exam Data for Last 24 hours Vital signs and Labs for Last 24 Hours: Temp Pulse Resp BP Pulse Ox O2 Del Method 97.7 F 69 18 129/71 96 Room Air 11/26/24 11:59 11/26/24 11:59 11/26/24 11:59 11/26/24 11:59 11/26/24 11:59 11/26/24 11:59 Laboratory Results - last 24 hr 11/26/24 06:17: WBC 10.7, RBC 4.93, Hgb 15.0, Hct 43.3, MCV 87.8, MCH 30.4, MCHC 34.6, RDW 12.4, Plt Count 202, MPV 12.0 H, Neut % (Auto) 55.9, Lymph % (Auto) 33.3, Hodgeman % (Auto) 6.9, Eos % (Auto) 2.9, Baso % (Auto) 0.6, Neut # (Auto) 6.0, Lymph # (Auto) 3.6, Hodgeman # (Auto) 0.7, Eos # (Auto) 0.3, Baso # (Auto) 0.1, Sodium 137, Potassium 3.2 L, Chloride 97 L, Carbon Dioxide 31 H, Anion Gap 12.2, BUN 14, Creatinine 1.10 H D, Estimated Creat Clear 53, Estimated GFR 51 L, Est GFR ( Amer) 62 D, Glucose 124 H, Calcium 10.2, Magnesium 1.5 L D, Total Bilirubin 1.0, AST 36, ALT 17 D, Alkaline Phosphatase 82, Total Protein 8.3 H D, Albumin 5.0 D, Globulin 3.3 H, Albumin/Globulin Ratio 1.5 I & O for Last 24 hours: Intake & Output 11/23/24 11/24/24 11/25/24 11/26/24 23:59 23:59 23:59 23:59 Intake Total 639.050 / 879.050 854.4 / 854.4 345.85 / 705.85 733.25 / 733.25 Output Total 0 / 0 700 / 700 2900 / 3500 2200 / 2200 Balance 639.050 / 879.050 154.4 / 154.4 -2554.15 / -2794.15 -1466.75 / -1466.75 Weight 122.65 kg 123.2 kg 123.56 kg 123.422 kg Microbiology Reports for the Last 24 Hours: Microbiology 11/23/24 05:15 Anus CRE Surveillance Culture - Final Negative Constitutional Constitutional: no acute distress, morbidly obese and cooperative *Routine HEENT Exam Head: Present normocephalic Eye: Present EOMI and PERRL ENT: Present mucous membranes moist *Routine Neck Exam Neck: Present supple; Absent lymphadenopathy *Routine Respiratory Exam Respiratory: Present CTA bilaterally; Absent rhonchi, wheezes or crackles *Routine Cardiovascular Exam Cardiovascular: Present RRR *Routine Abdominal Exam Abdominal: Present soft and normoactive bowel sounds; Absent tenderness *Routine Rectal Exam Patient deferred: visual exam *Routine Exam Patient deferred: external exam *Routine Extremities Exam Extremities: Present edema (trace); Absent cyanosis or clubbing Comments: Lower extremity lipedema. *Routine Skin Exam Skin: Present intact and warm; Absent rash *Routine Neurological Exam Neurological: Present alert, oriented X3 and moving all extremities; Absent altered mental status Results Data Completed and Pending Labs on day of discharge: Labs from last 24 hours 11/26/24 06:17 WBC 10.7 RBC 4.93 Hgb 15.0 Hct 43.3 MCV 87.8 MCH 30.4 MCHC 34.6 RDW 12.4 Plt Count 202 MPV 12.0 H Neut % (Auto) 55.9 Lymph % (Auto) 33.3 Hodgeman % (Auto) 6.9 Eos % (Auto) 2.9 Baso % (Auto) 0.6 Neut # (Auto) 6.0 Lymph # (Auto) 3.6 Hodgeman # (Auto) 0.7 Eos # (Auto) 0.3 Baso # (Auto) 0.1 Sodium 137 Potassium 3.2 L Chloride 97 L Carbon Dioxide 31 H Anion Gap 12.2 BUN 14 Creatinine 1.10 H D Estimated Creat Clear 53 Estimated GFR 51 L Est GFR ( Amer) 62 D Glucose 124 H Calcium 10.2 Magnesium 1.5 L D Total Bilirubin 1.0 AST 36 ALT 17 D Alkaline Phosphatase 82 Total Protein 8.3 H D Albumin 5.0 D Globulin 3.3 H Albumin/Globulin Ratio 1.5 DS: Diagnosis Discharge Diagnosis (1) Unstable angina: Status: Acute Code(s): I20.0 - Unstable angina (2) Elevated d-dimer: Status: Acute Code(s): R79.89 - Other specified abnormal findings of blood chemistry (3) Hyperlipidemia: Status: Chronic Code(s): E78.5 - Hyperlipidemia, unspecified Qualifiers: Hyperlipidemia type: unspecified Qualified Code(s): E78.5 - Hyperlipidemia, unspecified (4) Tobacco use: Status: Acute Code(s): Z72.0 - Tobacco use (5) HTN (hypertension): Status: Acute Code(s): I10 - Essential (primary) hypertension Qualifiers: Hypertension type: unspecified Qualified Code(s): I10 - Essential (primary) hypertension (6) Coronary artery disease: Status: Chronic Code(s): I25.10 - Atherosclerotic heart disease of [place] coronary artery without angina pectoris Qualifiers: Associated angina: without angina Coronary Disease-Associated Artery/Lesion type: [place] artery [place] vs. transplanted heart: [place] heart Qualified Code(s): I25.10 - Atherosclerotic heart disease of [place] coronary artery without angina pectoris (7) Acute on chronic heart failure with preserved ejection fraction (HFpEF): Status: Acute Code(s): I50.33 - Acute on chronic diastolic (congestive) heart failure Meds Home Medications and Allergies Home Medications ?Medication ?Instructions ?Recorded ?Confirmed ?Type aspirin 81 mg capsule 81 mg PO DAILY 04/19/24 11/23/24 History hydrocodone 10 mg-acetaminophen 1 tab PO TID #90 tabs 11/21/24 11/23/24 Rx 325 mg tablet coenzyme Q10 200 mg capsule (Co 200 mg PO DAILY 11/23/24 11/23/24 History Q-10) cyclobenzaprine 5 mg tablet 5 mg PO QIDP PRN muscle spasms 11/23/24 11/23/24 History esomeprazole magnesium 40 mg 40 mg PO DAILY 11/23/24 11/23/24 History capsule,delayed release famotidine 20 mg tablet 20 mg PO DAILY 11/23/24 11/23/24 History ropinirole 1 mg tablet 1 mg PO HS 11/23/24 11/23/24 History venlafaxine 75 mg tablet 75 mg PO DAILY 11/23/24 11/23/24 History rosuvastatin 10 mg tablet 40 mg PO HS 11/24/24 11/24/24 History budesonide-formoterol HFA 160 See Rx Instructions .Route 11/26/24 Rx mcg-4.5 mcg/actuation aerosol .COMPLEX #10.2 grams inhaler (Symbicort) bumetanide 2 mg tablet 2 mg PO DAILY #30 tabs 11/26/24 Rx metoprolol succinate 25 mg 25 mg PO DAILY 30 days #30 tabs 11/26/24 Rx tablet,extended release 24 hr spironolactone 25 mg tablet 25 mg PO DAILY 30 days #30 tabs 11/26/24 Rx New Prescriptions to Start Prescriptions: bumetanide Jorge A,Ramon metoprolol succinate Ramon Jules spironolactone Ramon Jules Allergies Allergy/AdvReac Type Severity Reaction Status Date / Time clopidogrel (From Plavix) Allergy Severe NON Verified 11/06/24 13:54 RESPONDER-STENT THROMBOSIS atorvastatin AdvReac Intermediate Abdominal Verified 11/06/24 13:54 Pain rosuvastatin (From Crestor) AdvReac Mild myalgia Verified 11/06/24 13:54 Discharge Plan Disposition Patient Disposition: Home, Self-Care Condition: Good Discharge Order Discharge Orders: Discharge Order (Routine); Ordered 11/26/24 Ordered By: Ramon Jules Follow up Plan Follow up with: Rica England APRN [Nurse Practitioner, Cardiology] - 12/11/24 1:30 pm Angeles Hartman APRN [Nurse Practitioner, Medical] - 12/03/24 9:15 am Prescriptions/Medication Reconciliation: New spironolactone 25 mg Tablet 25 mg PO DAILY 30 Days Qty: 30 0RF metoprolol succinate 25 mg Tablet Extended Release 24 Hr 25 mg PO DAILY 30 Days Qty: 30 0RF bumetanide 2 mg tablet 2 mg PO DAILY Qty: 30 0RF Continued budesonide-formoterol [Symbicort] 160-4.5 mcg/actuation HFA aerosol inhaler See Rx Instructions .ROUTE .COMPLEX Qty: 10.2 0RF Dose Instruction: USE 2 INHALATIONS BY MOUTH TWICE A DAY FOR ASTHMA ..RINSE MOUTH AFTER EACH USE Rx Instructions: USE 2 INHALATIONS BY MOUTH TWICE A DAY FOR ASTHMA ..RINSE MOUTH AFTER EACH USE aspirin 81 mg Capsule 81 mg PO DAILY hydrocodone-acetaminophen 10-325 mg tablet 1 tab PO TID Qty: 90 0RF venlafaxine 75 mg Tablet 75 mg PO DAILY coenzyme Q10 [Co Q-10] 200 mg Capsule 200 mg PO DAILY cyclobenzaprine 5 mg tablet 5 mg PO QIDP PRN (Reason: muscle spasms) ropinirole 1 mg tablet 1 mg PO HS Rx Instructions: TAKE 1 TABLET BY MOUTH AT BEDTIME EVERY NIGHT famotidine 20 mg tablet 20 mg PO DAILY Rx Instructions: TAKE 1 TABLET BY MOUTH DAILY esomeprazole magnesium 40 mg capsule,delayed release(DR/EC) 40 mg PO DAILY Rx Instructions: TAKE 1 CAPSULE BY MOUTH ONCE DAILY rosuvastatin 10 mg Tablet 40 mg PO HS Discontinued furosemide 40 mg tablet 40 mg PO BID Qty: 60 5RF metoprolol succinate 25 mg tablet extended release 24 hr 12.5 mg PO DAILY Rx Instructions: TAKE 1/2 TABLET BY MOUTH ONCE DAILY Problem Reconciliation Problems Reviewed?: Yes Patient Discharge Instructions ACTIVITY: Continue current activity DIET: continue same diet Patient Instructions: DI for Heart Attack, DI for Cardiac Catheterization, DI for Chronic Pain -- Adult, Stop Light Infection Print Language: Argentine Providers Primary Care Provider: Provider,Referral Admit Provider: Matt Alba Attending Provider: Matt Alba
[2024-11-26] MEDS: BUMETANIDE 1 MG TABLET 2 MG PO (13:25)
--- NOTE | 2024-11-27 09:58 | SW/DCPLANNER ---
Spoke with patient on the phone. Patient stated that she is doing good. Patient stated that she is aware of her upcoming appointments. Patient stated that she was able to get her new medicines [facility] Patient stated that she has no concerns or questions at this time. Christine Brock
== END 2024-11-26 14:56 | disposition home or self-care (01) | DRG 280 ==
LOC: ER 02:00 → ICU 04:23 → 2ND 11-25 16:43
PROVIDERS: Internal Medicine; Nurse Practitioner Acute Care; Admitting Provider Student in an Organized Health Care Education/Training Program; Emergency Provider Emergency Medicine; Visit Provider Student in an Organized Health Care Education/Training Program
PROC: 4A023N7 Measurement of Cardiac Sampling and Pressure, Left Heart, Percutaneous Approach (ICD-10-PCS; CPT 93452; principal; 2024-11-25 11:45)
DX: I11.0 Hypertensive heart disease with heart failure (principal); I50.33 Acute on chronic diastolic (congestive) heart failure; I21.A1 Myocardial infarction type 2; Z68.41 Body mass index [BMI] 40.0-44.9, adult; R79.89 Other specified abnormal findings of blood chemistry; E78.5 Hyperlipidemia, unspecified; I25.10 Atherosclerotic heart disease of native coronary artery without angina pectoris; K21.9 Gastro-esophageal reflux disease without esophagitis; G47.33 Obstructive sleep apnea (adult) (pediatric); F41.9 Anxiety disorder, unspecified; E87.6 Hypokalemia; E83.42 Hypomagnesemia; G25.81 Restless legs syndrome; F32.A Depression, unspecified; E66.01 Morbid (severe) obesity due to excess calories; J44.9 Chronic obstructive pulmonary disease, unspecified; R73.03 Prediabetes; F17.210 Nicotine dependence, cigarettes, uncomplicated; Z79.82 Long term (current) use of aspirin; Z79.899 Other long term (current) drug therapy; Z88.8 Allergy status to other drugs, medicaments and biological substances; Z95.5 Presence of coronary angioplasty implant and graft
CPT/HCPCS: 36415; 71045; 71275; 80048; 80053; 80061; 82728; 83036; 83540; 83550; 83735; 83880; 84443; 84484; 85025; 85378; 85610; 85730; 87081; 93005; 94640; 99152; C1725; C1769; J1171; J1200; J1450; J1644; J1650; J1939; J2003; J2250; J2270; J2405; J2704; J3010; J3475; J7040; Q9967

== ENCOUNTER 2024-11-29 13:56 | Day surgery (SDC) | payer MEDICARE, SELFPAY ==
[2024-11-29 14:06] VITALS: BP 125/68; PULSE 77; RESP 18; O2SAT 96; BMI 42.3
--- NOTE | 2024-11-29 14:39 | P.PCN_ITS ---
Procedure Date: 11/29/24 Time: 14:39 Anesthesiologist:: Shabnam Calvin APRN Complications:: None Pre-procedure Diagnosis:: Degenerative disc disease of lumbar spine with lumbar radiculopathy symptoms, chronic right knee pain, right anserine bursitis Post-procedure Diagnosis:: Same Indications for Procedure:: Patient is a pleasant 59-year-old female who presents today for a right anserine bursa injection. She denies any new falls or injuries from her last appointment. Patient does state that her right knee is still giving her lots of issues. Patient is managed with Greenfield 7.5 mg 3 times a day and Flexeril 10 mg 3 times a day from our office. She denies any side effects. Her Anatoly has been reviewed and is appropriate. Physical Exam: General: Alert and oriented x3, no acute distress, pleasant and cooperative Lungs: Respirations even and unlabored, symmetrical chest expansion Eyes: PERRL Musculoskeletal: Flexion and extension of right knee somewhat guarded secondary to pain, [antalgic gait noted] Neurological: Speech clear, no gross sensory deficit Procedure Details:: The patient was positioned, the knee was draped appropriately. Anatomical landmarks were identified. The skin was prepped with ChloraPrep in the usual fa shion. Using strict sterile technique, a 25-gauge 1-1/2 inch needle was inserted into her right anserine bursa. After negative aspiration, 5 mL's of 0.25% Marcaine, 1% lidocaine along with 1 mL's of 10 mg dexamethasone s injected. The needle was removed and a sterile bandage was applied. Plan and Disposition:: Patient tolerated the procedure well with no complications and was discharged neurologically intact. Patient will return to clinic in 2 weeks for reevaluation of symptoms and plan of care. Patient has been instructed to contact the clinic with any concerns before the next appointment. Dr. Savage has reviewed this note and agrees with this plan of care. This note was dictated using voice recognition software and make contain errors or omissions. All injections are used with Lidocaine, Bupivacaine and dexamethasone. Occasionally urine drug screen is needed to verify patient's compliance with our office pain contract. This is ordered based off specific treatments related to chronic pain with the potential to abuse certain medications.
[2024-11-29 14:45] VITALS: BP 101/69; PULSE 66; RESP 18; O2SAT 96
[2024-11-29] MEDS: BUPIVACAINE 0.25% 10ML INJ 25 MG IJ (14:54)
[2024-11-29] MEDS: LIDOCAINE 1% 5ML PF VIAL 5 ML (14:54)
[2024-11-29 14:55] VITALS: BP 139/75; PULSE 74; RESP 18; O2SAT 97
[2024-11-29] MEDS: DEXAMETHASONE 10MG/ML 1ML VIAL 10 MG (14:55)
[2024-11-29 14:56] VITALS: BP 139/75; PULSE 74; RESP 18; O2SAT 97
== END 2024-11-29 14:45 | disposition home or self-care (01) ==
PROVIDERS: Visit Provider Nurse Practitioner Family
DX: M71.561 Other bursitis, not elsewhere classified, right knee (principal); G89.29 Other chronic pain; M25.561 Pain in right knee; M51.16 Intervertebral disc disorders with radiculopathy, lumbar region; I11.0 Hypertensive heart disease with heart failure; I50.9 Heart failure, unspecified; I25.10 Atherosclerotic heart disease of native coronary artery without angina pectoris; E66.9 Obesity, unspecified; Z68.41 Body mass index [BMI] 40.0-44.9, adult; M79.18 Myalgia, other site; K21.9 Gastro-esophageal reflux disease without esophagitis; E78.5 Hyperlipidemia, unspecified; Z79.02 Long term (current) use of antithrombotics/antiplatelets; Z79.01 Long term (current) use of anticoagulants; Z79.899 Other long term (current) drug therapy; Z79.85 Long-term (current) use of injectable non-insulin antidiabetic drugs; Z79.891 Long term (current) use of opiate analgesic; Z79.51 Long term (current) use of inhaled steroids; Z88.8 Allergy status to other drugs, medicaments and biological substances; F17.210 Nicotine dependence, cigarettes, uncomplicated
CPT/HCPCS: 20610; J0665; J1100; J2003

== ENCOUNTER 2024-12-11 14:08 | Outpatient (CLI) | payer MEDICARE, SELFPAY ==
--- OUTSIDE RECORDS SUMMARY | 2024-10-14 11:40 | XMS_ITS | Encounter Summary ---
Author Organization [facility] Address [address] [id number] Care Team Providers Care Hall Worker Name Role Phone Angeles Hartman APRN Primary Care Provider +1- [phone] Reason for Referral * Other Medical (Routine) - Pending Review Specialty Diagnoses / Procedures Referred By Stephanie ta Referred To Contact Neurology Diagnoses Lumbar radiculopathy Meralgia paresthetica of left side Procedures EMG / Nerve Conduction Study Alonso Sutton MD [address] [facility] [address] [place] [address] Phone: tel: fax: Referral ID Status Reason Start Date Expiration Date Visits Requested Visits Authorized [id number] Pending Review Specialty Services Required 10/14/2024 04/15/2026 1 1 Reason for Visit * Consultation (Routine) - Closed Specialty Diagnoses / Procedures Referred By Stephanie ta Referred To Contact Neurology Diagnoses Neuritis of lower extremity, unspecified laterality [facility] [address] [place] [address] Phone: tel: fax: Referral ID Status Reason Start Date Expiration Date V isits Requested Visits Authorized [id number] Closed Consult and Treat 07/26/2024 01/25/2026 1 1 Encounter Details Date Type Department Care Team (Late st Contact Info) Description 10/14/2024 11:40 AM EDT Consult [place] [facility] [address] [place] [address] Alonso Sutton MD [address] [place] [address] Lumbar radiculopathy (Primary Dx); Meralgia [...] documented as of this encounter Care Teams Hall Worker Relationship Specialty Start Date End Date Angeles Hartman APRN [address] [id number] PCP - General 09/18/20 documented as of this encounter
--- OUTSIDE RECORDS SUMMARY | 2024-12-11 14:13 | XMS_ITS | Clinical Summary ---
Author Organization [facility] Address [address] [place] [address] Care Team Providers Care Lathe Machine Operator Name Role Phone Hartman Angelesbetty Gonzales APRN Primary Care Provider [phone] Allergies Active Allergy Reactions Criticality Noted Date Comments Atorvastatin Other - please docum ent in the comment field High 05/10/2023 Other reaction(s): Abdominal Pain Clopidogrel Other - please docum ent in the comment field High 05/10/2023 Other reaction(s): NON RESPONDER-STENT THROMBOSIS Medications rosuvastatin (Crestor) 5 MG tablet 06/08/2022 Active furosemide (Lasix) 20 MG tablet Active HYDROcodone-acet aminophen (G[place]ay) 5-325 MG tablet 10/31/2022 Active Symbicort 160-4.5 [...] Team Description 10/14/2024 11:40 AM EDT Consult [place] [facility] [address] [place] [address] Alonso Sutton MD Lumbar radiculopathy [...] Screening 1965 [facility]-Medicare Annual Wellness (AWV) 1967 [facility]-/Child/Adol SDOH Screenings 1965 [facility]- SDOH Screenings 09/19/1985 [...] 09/19/2017 [facility]-Zoster Vaccines (1 of 2) 09/19/2017 [id number] Vaccine (1 - season) 2024 [facility]-Influenza Vaccine [...] IgM Negative Negative 11/03/2022 10:47 AM EDT [facility] Blood Venous blood specimen / Unknown Venipuncture / Unknown 11/03/2022 8:27 AM EDT 11/03/2022 8:28 AM EDT Janiya Huggins APRN LAB BLOOD ORDERABLES Fi nal Result Performing Organization Address City/State/[facility] Co de Phone Number HEALTHCARE LAB [address] [place] [address] from Last 3 Months or Most Recently Relevant to Health Maintenance Insurance MEDICARE Care Teams Lathe Machine Operator Relationship Specialty Start Date End Date Angeles Hartman APRN [address] [place] [address] PCP - General 09/18/20
--- OUTSIDE RECORDS SUMMARY | 2024-12-11 14:13 | XMS_ITS | Encounter Summary ---
Author Organization [facility] Address [address] [place] [address] Care Team Providers Care Production Cost Estimator Name Role Phone HartmanAngeles altamirano Janet BAIRES Primary Care Provider [phone]- [phone] Encounter Details Date Type Department Care Team [...] documented as of this encounter Care Teams Production Cost Estimator Relationship Specialty Start Date End Date Angeles Hartman APRN [address] [place] [address] PCP - General 09/18/20 documented as of this encounter
[2024-12-11 16:14] LABS: Chloride 99 mmol/L (98-107); Potassium 3.7 mmoL/L (3.5-5.1); Sodium 135 mmol/L (136-145)
[2024-12-11 16:17] LABS: Anion Gap 9.7 mEq/L (5-15); Blood Urea Nitrogen 15 mg/dl (7-17); Calcium 9.2 mg/dl (8.4-10.2); Carbon Dioxide 30 mmol/L (22.0-30.0); Creatinine,Serum 0.80 mg/dl (0.52-1.04); Estimated Glomerular Filt Rate 74 ml/min (>60); GFR (African American) 89 ML/MIN (>60); Glucose 103 mg/dl (74-100)
== END 2024-12-11 23:59 | disposition home or self-care (01) ==
LOC: LAB 14:08
PROVIDERS: PCP Nurse Practitioner Family; Visit Provider Nurse Practitioner
DX: I25.10 Atherosclerotic heart disease of native coronary artery without angina pectoris (principal); I10 Essential (primary) hypertension
CPT/HCPCS: 36415; 80048

== ENCOUNTER 2024-12-18 10:18 | Outpatient (POV) | payer MEDICARE, SELFPAY ==
--- OUTSIDE RECORDS SUMMARY | 2024-12-18 10:26 | XMS_ITS | Clinical Summary ---
Author Organization [employer] ([place], [place], [place], [place]) Address [address] [place] [address] Care Team Providers Care Toddler Teacher Name Role Phone [place] MD Unavailable Familia Perez APRN Unavailable [phone] Angeles Hartman APRN Primary Care Provider Allergies [...] Visit [facility] - [address] [place] [address] [place] MD Sacroiliitis (HCC) (Primary Dx); Sacroiliac joint dysfunction of left side 10/15/2024 11:00 AM EDT Office Visit [facility] [address] [place] [address] Familia Perez APRN Sacroiliac joint dysfunction of left side (Primary Dx); Polyneuropathy 10/09/2024 1:30 PM EDT - 10/09/2024 11:59 PM EDT Hospital Encounter [facility] [address] [facility] [address] [place] [address] [place] MD Radiculopathy of [...] [facility] Neurology - [place] [address] [facility] [address] [place] [address] Jewel Nunez MD [address] [employer] [place] [address] [place] [address] Health Maintenance Due Date Last Done Comments [...] Final Result from Last 3 Months Insurance [facility] MEDICARE ADVANTAGE Care Teams Toddler Teacher Relationship Specialty Start Date End Date Angeles Hartman, VIRY [address] [address] PCP - General Nurse Practitioner 07/19/24 [place] Lopez MD [address] [place] [address] Sports Medicine 02/14/24 Familia Perez, FRESH WORK WRAPPER LAYER [address] [place] [address] Orthopedic Surgery 03/25/24
--- OUTSIDE RECORDS SUMMARY | 2024-12-18 10:26 | XMS_ITS | Referral Summary ---
Author Organization [employer] ([place], [place], [place], [place]) Address [address] [place] [address] Care Team Providers Care Computer Trainer Name Role Phone [place] MD Unavailable Familia Perez APRN Unavailable [phone] Angeles Hartman APRN Primary Care Provider Encounters Date Type Department Care Team Description 10/17/2024 2:30 PM EDT Office Visit [facility] Orthoped[facility] [address] [place] [address] [place] MD Sacroiliitis (HCC) (Primary Dx); Sacroiliac joint dysfunction of left side 10/15/2024 11:00 AM EDT Office Visit [address] [address] Familia Perez APRN Sacroiliac joint dysfunction of left side (Primary Dx); Polyneuropathy 10/09/2024 1:30 PM EDT - 10/09/2024 11:59 PM EDT Hospital Encounter [facility] [address] [facility] [address] [place] [address] [place] MD Radiculopathy of [...] Date Regis rded Speak language other than Welsh at home Not on file 08/02/2023 Want [...] Description 12/31/2024 10:00 AM EDT Office Visit [facility] [address] [place] [address] Jewel Nunez MD [address] [employer] [place] [address] [place] [address] Procedures Procedure Name Priority Date/Time Associated Diagnosis [...] Final Result from Last 3 Months Insurance [facility] [place] [address] Care Teams Computer Trainer Relationship Specialty Start Date End Date Angeles Hartman APRN [address] [address] PCP - General Nurse Practitioner 07/19/24 [place] Lopez MD [address] [place] [id number] Sports Medicine 02/14/24 Familia Perez, GRAY TENDER [address] [place], [place] [id number] Orthopedic Surgery 03/25/24
--- OUTSIDE RECORDS SUMMARY | 2024-12-18 10:26 | XMS_ITS | Clinical Summary ---
Author Organization [facility] Address [address] [place] [address] Care Team Providers Care Systems Analysis Manager Name Role Phone HartmanMargueritebetty Gonzales APRN Primary Care Provider [phone] Allergies Active Allergy Reactions Criticality Noted Date Comments Atorvastatin Other - please docum ent in the comment field High 05/10/2023 Other reaction(s): Abdominal Pain Clopidogrel Other - please docum ent in the comment field High 05/10/2023 Other reaction(s): NON RESPONDER-STENT THROMBOSIS Medications rosuvastatin (Crestor) 5 MG tablet 06/08/2022 Active furosemide (Lasix) 20 MG tablet Active HYDROcodone-acet aminophen ([place]) 5-325 MG tablet 10/31/2022 Active Symbicort 160-4.5 [...] Team Description 10/14/2024 11:40 AM EDT Consult [place] [facility] [address] [place] [address] Alonso Sutton MD Lumbar radiculopathy [...] 09/19/2017 [facility]-Zoster Vaccines (1 of 2) 09/19/2017 [id number] Vaccine (1 - season) 2024 [facility]-Influenza Vaccine [...] Negative 11/03/2022 10:47 AM EDT [facility] Blood Venous blood specimen / Unknown Venipuncture / Unknown 11/03/2022 8:27 AM EDT 11/03/2022 8:28 AM EDT Janiya Huggins APRN LAB BLOOD ORDERABLES Fi nal Result Performing Organization Address City/State/[facility] Co de Phone Number HEALTHCARE LAB [address] [place] [address] from Last 3 Months or Most Recently Relevant to Health Maintenance Insurance MEDICARE Care Teams Systems Analysis Manager Relationship Specialty Start Date End Date Angeles Hartman APRN [address] [place] [address] PCP - General 09/18/20
--- OUTSIDE RECORDS SUMMARY | 2024-12-18 10:26 | XMS_ITS | Encounter Summary ---
Author Organization [employer] ([place], [place], [place], [place]) Address [address] [place] [address] Care Team Providers Care Manager Testing Name Role Phone Monroe Lopez MD Unavailable Familia Perez APRN Unavailable [phone] Angeles Hartman APRN Primary Care Provider Encounter Details Date Type Department Care Team (Late st Contact Info) Description 07/18/2024 Outside Orders [facility] Admitting [address] [place] [address] Monroe Lopez MD [address] [place] [address] Social History Tobacco Use Types Packs/Day Years [...] Date Regis rded Speak language other than [place] at home Not on file 08/02/2023 Want [...] Description 12/31/2024 10:00 AM EDT Office Visit [facility] Neurology - [facility] [address] [place] [address] Jewel Nunez MD [address] [facility] [address] [place] [address] documented as of this encounter Visit Diagnoses Not on filedocumented in this encounter Care Teams Manager Testing Relationship Specialty Start Date End Date Angeles Hartman, VIRY [address] [id number] PCP - General Nurse Practitioner 07/19/24 Monroe Lopez MD [address] [place] [address] Sports Medicine 02/14/24 Familia Perez, CHANGE OF ADDRESS CLERK [address] [place] [address] Orthopedic Surgery 03/25/24 documented as of this encounter
--- NOTE | 2024-12-18 10:31 | EXP.PAIN.SOA ---
[facility] Disclaimer: The information contained in this section may have been updated after the patient was seen, as this information can be updated by other users. Medical History (Updated 12/18/24 @ 11:23 by Shabnam Calvin APRN) Bilateral knee pain Tobacco use Non-STEMI (non-ST elevated myocardial infarction) Localized edema SOB (shortness of breath) Muscle cramping Edema Low back pain Screening mammogram for breast cancer Right otitis media Lightheadedness Left groin pain Chronic left hip pain Early satiety Epigastric pain Periumbilical abdominal pain Nausea UTI (urinary tract infection) Sprain and strain of left ankle Edema of left foot Left foot pain Peroneal tendinitis of left lower extremity Foot pain Fibromyalgia affecting multiple sites Coccygeal pain Left buttock pain Encounter for wellness examination Acute cystitis without hematuria Cellulitis of left forearm Dysuria Swelling of lower extremity Dysphagia Screening for osteoporosis Screening for breast cancer Oral candidiasis Acute cough Medicare annual wellness visit, subsequent Screening, deficiency anemia, iron Acute bronchitis Elevated uric acid in blood Elevated C-reactive protein (CRP) Localized swelling of left foot Left leg pain Left leg swelling Low vitamin B12 level Myalgia Arthralgia Esophageal stricture Dyspepsia Fibromyalgia Chronic leg pain Acute viral syndrome Nocturnal hypoxemia Callus of foot Keratosis Daytime somnolence Restless sleeper Plantar fasciitis, right Acute left flank pain Right ankle instability Retrocalcaneal bursitis of both feet Retrocalcaneal exostosis Partial tear of right Achilles tendon Tear of peroneal tendon of right foot Nontraumatic tear of right tibialis posterior tendon STEMI (ST elevation myocardial infarction) Unstable angina pectoris Chest pain Right knee pain Sacroiliitis Left ankle sprain Left ankle pain Left hip pain Fall Hypokalemia Gastroenteritis Shoulder injury Near syncope Encounter for pre-operative cardiovascular clearance Foot neuroma Angina pectoris Normal colonoscopy Myocardial infarction Lung disease Depression CHF (congestive heart failure) Arrhythmia Anxiety Dizziness HTN (hypertension) Coronary artery disease Sinus bradycardia Obesity Abnormal EKG Dyspnea Palpitations GERD (gastroesophageal reflux disease) Hyperlipidemia Surgical History History of total knee replacement Hx of cardiac cath History of arthroscopy of right shoulder H/O arthroscopy of left knee Family History Other Family history of acute congestive heart failure Family history of cancer No significant family history Social History Smoking Status: Current every day smoker tobacco type: cigarettes packs per day: 1 second hand exposure: No alcohol intake: never substance use type: denies use current occupational status: other Travel in the last 8 weeks?: None household members: spouse housing: house 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 Today she rates her pain a 7 out of 10. She denies any new falls or injuries. She does state that she had some improvement while it was numb but immediately after that it actually made it worse. She states that she is still having chronic pain in her right knee but also feels like she still has pain from her previous left knee replacement that is fairly constant. Patient does state that she has a lot of difficulty going up and down stairs and it does interfere with her ability perform activities of daily living such as cooking and cleaning. Patient is up asking if there is anything else he can try. She does have to make adjustment modification due to the worsening pain in her knees. Patient is currently managed with Milford 7.5 mg 3 times a day and Flexeril 5 mg 3 times a day from our office. She denies any side effects. Her Anatoly has been reviewed and is appropriate. Review of Systems: General: No recent weight changes, no fever, no sleep disturbances Respiratory: No cough, no shortness of air, no recurring pulmonary infections Cardiovascular/peripheral vascular: No chest pain, no palpitations, no edema, no shortness of breath Gastrointestinal: No new onset incontinence, normal bowel movements reported Genitourinary: No new onset incontinence Musculoskeletal: Bilateral knee pain Psychiatric: [Normal mood/affect] Neurological: [Denies weakness in extremities], [denies balance issues] Pain at rest (0-10 scale): 7 Objective Objective:: Physical Exam: General: Alert and oriented x3, no acute distress, pleasant and cooperative Lungs: Respirations even and unlabored, symmetrical chest expansion Eyes: PERRL Musculoskeletal: Flexion and extension of bilateral knees somewhat guarded secondary to pain, [antalgic gait noted] Neurological: Speech clear, no gross sensory deficit Has patient had previous pain injection?: Yes Percent improvement in pain since last injection: Only temporary Conservative treatment options previously tried: Home exercise plan Length of treatment: Longer than 12 weeks Meds Home Medications and Allergies Home Medications ?Medication ?Instructions ?Recorded ?Confirmed ?Type aspirin 81 mg capsule 81 mg PO DAILY 04/19/24 12/16/24 History hydrocodone 10 mg-acetaminophen 1 tab PO TID #90 tabs 11/21/24 12/16/24 Rx 325 mg tablet coenzyme Q10 200 mg capsule (Co 200 mg PO DAILY 11/23/24 12/16/24 History Q-10) cyclobenzaprine 5 mg tablet 5 mg PO QIDP PRN muscle spasms 11/23/24 12/16/24 History esomeprazole magnesium 40 mg 40 mg PO DAILY 11/23/24 12/16/24 History capsule,delayed release famotidine 20 mg tablet 20 mg PO DAILY 11/23/24 12/16/24 History ropinirole 1 mg tablet 1 mg PO HS 11/23/24 12/16/24 History venlafaxine 75 mg tablet 75 mg PO DAILY 11/23/24 12/16/24 History rosuvastatin 10 mg tablet 40 mg PO HS 11/24/24 12/16/24 History budesonide-formoterol HFA 160 See Rx Instructions .Route 11/26/24 12/16/24 Rx mcg-4.5 mcg/actuation aerosol .COMPLEX #10.2 grams inhaler (Symbicort) bumetanide 2 mg tablet 2 mg PO DAILY #30 tabs 11/26/24 12/16/24 Rx metoprolol succinate 25 mg 25 mg PO DAILY 30 days #30 tabs 11/26/24 12/16/24 Rx tablet,extended release 24 hr spironolactone 25 mg tablet 25 mg PO DAILY 30 days #30 tabs 11/26/24 12/16/24 Rx New Prescriptions to Start Prescriptions: Allergies Allergy/AdvReac Type Severity Reaction Status Date / Time clopidogrel (From Plavix) Allergy Severe NON Verified 12/16/24 11:07 RESPONDER-STENT THROMBOSIS atorvastatin AdvReac Intermediate Abdominal Verified 12/16/24 11:07 Pain rosuvastatin (From Crestor) AdvReac Mild myalgia Verified 12/16/24 11:07 Assessment and Plan *Assessment and plan (1) Bilateral knee pain: Status: Acute Qualifiers: Chronicity: acute Qualified Code(s): M25.561 - Pain in right knee; M25.562 - Pain in left knee Category: Medical Code(s): M25.561 - Pain in right knee; M25.562 - Pain in left knee Plan Patient is experiencing chronic knee pain bilaterally. She did have limited range of motion in both her knees. Patient has had a prior left knee replacement however did end up having significant nerve damage following. I did discuss with the patient that she may benefit from bilateral infrapatellar nerve blocks. Risk and benefits were discussed with patient and she would like to proceed forward with this plan of care. Patient has tried and failed conservative therapy including oral medication, heat and ice, topicals, previous physical therapy and continued at home stretching exercise that was physician guided. Patient will be submitted for bilateral infrapatellar nerve blocks. This will be done without fluoroscopic or ultrasound guidance. I will also refill her Milford. Patient will return to clinic for her injections. Patient has been instructed to contact the clinic with any concerns before the next appointment. Dr. Savage has reviewed this note and agrees with this plan of care. This note was dictated using voice recognition software and make contain errors or omissions. All injections are used with Lidocaine, Bupivacaine and dexamethasone. Occasionally urine drug screen is needed to verify patient's compliance with our office pain contract. This is ordered based off specific treatments related to chronic pain with the potential to abuse certain medications.
[2024-12-18 11:20] VITALS: BP 111/58; PULSE 68; RESP 18; O2SAT 97; BMI 43.5
== END 2024-12-18 23:59 | disposition home or self-care (01) ==
PROVIDERS: PCP Nurse Practitioner Family; Visit Provider Nurse Practitioner Family
DX: M25.561 Pain in right knee (principal); M25.562 Pain in left knee; Z96.659 Presence of unspecified artificial knee joint
CPT/HCPCS: 99212; G0463

== ENCOUNTER 2025-01-01 14:12 | Outpatient (CLI) | payer MEDICARE, SELFPAY ==
--- OUTSIDE RECORDS SUMMARY | 2024-12-31 10:00 | XMS_ITS | Encounter Summary ---
Author Organization [employer] ([place], [place], [place], [place]) Address [address] [place] [address] Care Team Providers Care Program Assistant Name Role Phone Monroe Lopez MD Unavailable Familia Perez APRN Unavailable [phone] Angeles Hartman APRN Primary Care Provider [phone] Reason for Visit * Reason Comments Peripheral Neuropathy * Consultation (Routine) - Closed Specialty Diagnoses / Procedures Referred By Contac t Referred To Contact Neurology Diagnoses Polyneuropathy New PT - Polyneuropathy (EMG done at [facility] 05/31/24) Procedures Ready Familia Perez, VIRY [address] [place] [address] Phone: tel: fax: Jewel Nunez MD [address] [place] [address] Phone: tel: fax: Referral ID Status Reason Start Date Expiration Date V isits Requested Visits Authorized [id number] Closed Specialty Services Required 10/15/2024 10/15/2025 1 1 Encounter Details Date Type Department Care Team (Late st Contact Info) Description 12/31/2024 10:00 AM EDT Office Visit [facility] Neurology - [place] [address] [place] [address] Jewel Nunez MD [address] [address] [place] [address] Polyneuropathy (Primary Dx); Peripheral polyneuropathy Social History Tobacco Use Types Packs/Day Years Used Date Smoking Tobacco: Former Cigarettes Smokeless Tobacco: Never Tobacco Cessation:Counseling Given: Not Answered Alcohol Use Standard Drinks/Week [...] Sign Reading Time Taken Comments Blood Pressure 107/54 12/31/2024 10:11 AM EDT Pulse 58 12/31/2024 10:11 AM EDT Temperature - - Respiratory Rate - - Oxygen Saturation - - Inhaled Oxygen Concentration - - Weight 124.5 kg (274 lb 8 oz) 12/31/2024 10:11 A M EDT Height 167.6 cm (5' 6 ) 12/31/2024 10:11 AM EDT Body Mass Index 44.31 12/31/2024 10:11 AM EDT documented in this encounter Progress Notes * Jewel Nunez MD - 12/31/2024 10:00 AM EDT Subjective Mela Carmona is a 59 y.o. female Chief Complaint Patient presents with Peripheral Neuropathy I have reviewed and/or updated the following: Consult: 12/31/24; 59 year old female accompanied with family, referred here from orthopedics for neuropathy. 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 Also there is underlying sensory greater than motor polyneuropathic process. An EMG did not reveal any evidence of lumbosacral root pathology. Review of Systems Constitutional: Positive for activity change and fatigue. Cardiovascular: Positive for leg swelling. Musculoskeletal: Positive for arthralgias and myalgias. All other systems reviewed and are negative. Radiology Results (last 7 days) No results found for the last 168 hours. No visits with results within 1 Day(s) from this visit. Latest known visit with results is: No results found for any previous visit. Objective BP 107/54 (BP Location: Right wrist, Patient Position: Sitting, Cuff Size: Adult) Pulse 58 Ht 1.676 m (5' 6 ) Wt 124.5 kg (274 lb 8 oz) BMI 44.31 kg/m?? Neurological Exam Mental Status Alert. Speech is normal. Cranial Nerves CN II: Visual acuity is normal. Visual cohen full to confrontation. CN III, IV, : Extraocular movements intact bilaterally. Normal lids and orbits bilaterally. Pupils equal round and reactive to light bilaterally. CN V: Facial sensation is normal. CN VII: Full and symmetric facial movement. CN VIII: Hearing is normal. CN IX, X: Palate elevates symmetrically. Normal gag reflex. CN XI: Shoulder shrug strength is normal. CN XII: Tongue midline without atrophy or fasciculations. Motor Normal muscle bulk throughout. No fasciculations present. Normal muscle tone. No abnormal involuntary movements. Strength is 5/5 throughout all four extremities. Sensory Light touch is normal in upper and lower extremities. Pinprick is normal in upper and lower extremities. Vibration is normal in upper and lower extremities. Proprioception is normal in upper and lower extremities. Reflexes Right Left Brachioradialis 1+ 1+ Biceps 1+ 1+ Triceps 1+ 1+ Patellar 0 0 Achilles 0 0 Right Plantar: downgoing Left Plantar: downgoing Coordination Right: Wuyirt-qk-fjjg normal. Rapid alternating movement normal. Stqb-lx-tsqu normal.Left: Hqunjy-lq-masi normal. Rapid alternating movement normal. Mkpl-rp-bnmy normal. Gait Normal casual, toe, heel and tandem gait. Romberg is absent. Physical Exam Vitals and nursing note reviewed. Exam conducted with a tumbler plater present. Constitutional: Appearance: Normal appearance. She is obese. HENT: Head: Normocephalic and atraumatic. Eyes: General: Lids are normal. Extraocular Movements: Extraocular movements intact. Pupils: Pupils are equal, round, and reactive to light. Cardiovascular: Rate and Rhythm: Normal rate and regular rhythm. Pulses: Normal pulses. Heart sounds: Normal heart sounds. Pulmonary: Effort: Pulmonary effort is normal. Breath sounds: Normal breath sounds. Musculoskeletal: Cervical back: Normal range of motion and neck supple. Comments: Left knee scar for replacement Neurological: Mental Status: She is alert. Motor: Motor strength is normal. Coordination: Romberg sign negative. Deep Tendon Reflexes: Reflex Scores: Tricep reflexes are 1+ on the right side and 1+ on the left side. Bicep reflexes are 1+ on the right side and 1+ on the left side. Brachioradialis reflexes are 1+ on the right side and 1+ on the left side. Patellar reflexes are 0 on the right side and 0 on the left side. Achilles reflexes are 0 on the right side and 0 on the left side. Psychiatric: Speech: Speech normal. No images are attached to the encounter. Assessment Mela was seen today for peripheral neuropathy. Diagnoses and all orders for this visit: Polyneuropathy Peripheral polyneuropathy - PROTEIN ELECTROPHORESIS, SERUM WITH REFLEX TO IMMUNOTYPING; Future - Rheumatoid factor Ab, reflex to titer; Future - Sedimentation rate; Future - Sjogren's antibodies; Future - TSH W/REFLEX TO FT4; Future - Vitamin B1 (Thiamine), Whole Blood, LC/MS/MS; Future - Vitamin B12 and Folate; Future - Vitamin B6, Plasma; Future - VITAMIN E; Future - Methylmalonic acid; Future - Lyme Disease Serology w/Reflex; Future - HGB A1C WITH EAG ESTIMA; Future - EMG W/ NCS - Copper, Plasma and RBC; Future - ANTINUCLEAR ANTIBODIES DIRECT; Future - Anti-Hu, Anti-Ri, Anti-Yo IFA; Future - ANCA by IFA (RDL); Future - Angiotensin Converting Enzyme (KEENAN); Future - PROTEIN ELECTROPHORESIS, SERUM WITH REFLEX TO IMMUNOTYPING - Rheumatoid factor Ab, reflex to titer - Sedimentation rate - Sjogren's antibodies - TSH W/REFLEX TO FT4 - Vitamin B1 (Thiamine), Whole Blood, LC/MS/MS - Vitamin B12 and Folate - Vitamin B6, Plasma - VITAMIN E - Methylmalonic acid - Lyme Disease Serology w/Reflex - HGB A1C WITH EAG ESTIMA - Copper, Plasma and RBC - ANTINUCLEAR ANTIBODIES DIRECT - Anti-Hu, Anti-Ri, Anti-Yo IFA - ANCA by IFA (RDL) - Angiotensin Converting Enzyme (KEENAN) Other orders - DULoxetine (CYMBALTA) 30 MG capsule; One PO qhs for 2 weeks, then 1 BID and continue.. 1. Polyneuropathy 2. Peripheral polyneuropathy Plan Ms. Carmona came to the clinic today accompanied with her who was present throughout history exam and decision making. Patient already had nerve conduction study done early May this year suggesting polyneuropathy of mixed type. She was concerned and wanted to know more about it explained her about neuropathy including axonal and demyelinating neuropathies and probable treatment and treatable causes screening tool. We are proceeding with above testing as mentioned for modifiable causesof neuropathy and for neuropathic pain adding low-dose Cymbalta at 30 mg daily for 2 weeks and thentwice daily and side effects were clearly explained to the patient. Will repeat nerve conduction mireille dy next couple of months and follow her the same day. Return in about 3 months (around 04/02/2025), or same day NCV/EMG. documented in this encounter Plan of Treatment Upcoming Encounters Date Type Department Care Team (Late st Contact Info) Description 03/11/2025 1:00 PM EST Procedure Visit [facility] Neurology - [place] [address] [place] [address] 03/11/2025 2:15 PM EST Office Visit [facility] Neurology - [facility] [address] [place] [address] Jewel Nunez MD [address] [place] [address] [employer] [facility] [address] [place] [address] Scheduled Orders Name Type Priority Associated Diagnoses Orde r Schedule PROTEIN ELECTROPHORESIS, SERUM WITH REFLEX TO IMMUNOTYPING Lab Routine Peripheral polyneuropathy Expected: 12/31/2024, Expires: 12/31/2025 Rheumatoid factor Ab, reflex to titer Lab Routine Peripheral polyneuropathy Expected: 12/31/2024, Expires: 12/31/2025 Sedimentation rate Lab Routine Peripheral polyneuropathy Expected: 12/31/2024, Expires: 12/31/2025 Sjogren's antibodies Lab Routine Peripheral polyneuropathy Expected: 12/31/2024, Expires: 12/31/2025 TSH W/REFLEX TO FT4 Lab Routine Peripheral polyneuropathy Expected: 12/31/2024, Expires: 12/31/2025 Vitamin B1 (Thiamine), Whole Blood, LC/MS/MS Lab Routine Peripheral polyneuropathy Expected: 12/31/2024, Expires: 12/31/2025 Vitamin B12 and Folate Lab Routine Peripheral polyneuropathy Expected: 12/31/2024, Expires: 12/31/2025 Vitamin B6, Plasma Lab Routine Peripheral polyneuropathy Expected: 12/31/2024, Expires: 12/31/2025 VITAMIN E Lab Routine Peripheral polyneuropathy Expected: 12/31/2024, Expires: 12/31/2025 Methylmalonic acid Lab Routine Peripheral polyneuropathy Expected: 12/31/2024, Expires: 12/31/2025 Lyme Disease Serology w/Reflex Lab Routine Peripheral polyneuropathy Expected: 12/31/2024, Expires: 12/31/2025 HGB A1C WITH EAG ESTIMA Lab Routine Peripheral polyneuropathy Expected: 12/31/2024, Expires: 12/31/2025 EMG W/ NCS Neurology Routine Peripheral polyneuropathy Ordered: 12/31/2024 Copper, Plasma and RBC Lab Routine Peripheral polyneuropathy Expected: 12/31/2024, Expires: 12/31/2025 ANTINUCLEAR ANTIBODIES DIRECT Lab Routine Peripheral polyneuropathy Expected: 12/31/2024, Expires: 12/31/2025 Anti-Hu, Anti-Ri, Anti-Yo IFA Lab Routine Peripheral polyneuropathy Expected: 12/31/2024, Expires: 12/31/2025 ANCA by IFA (RDL) Lab Routine Peripheral polyneuropathy Expected: 12/31/2024, Expires: 12/31/2025 Angiotensin Converting Enzyme (KEENAN) Lab Routine Peripheral polyneuropathy Expected: 12/31/2024, Expires: 12/31/2025 documented as of this encounter Visit Diagnoses Diagnosis Polyneuropathy- Primary Unspecified hereditary and idiopathic peripheral neuropathy Peripheral polyneuropathy documented in this encounter Care Teams Program Assistant Relationship Specialty Start Date End Date Angeles Hartman, VIRY [address] [id number] PCP - General Nurse Practitioner 07/19/24 Monroe Lopez MD [address] [place] [address] Sports Medicine 02/14/24 Familia Perez, VIRY [address] [place], [place] [id number] Orthopedic Surgery 03/25/24 documented as of this encounter
[2025-01-01 18:28] LABS: Magnesium 1.8 mg/dl (1.6-2.3)
--- OUTSIDE RECORDS SUMMARY | 2025-01-02 13:03 | XMS_ITS | Referral Summary ---
Author Organization [employer] ([place], [place], [place], [place]) Address [address] [place] [address] Care Team Providers Care Retail Consultant Name Role Phone Monroe Lopez MD Unavailable Familia Perez APRN Unavailable [phone] Angeles Hartman APRN Primary Care Provider [phone] Encounters Date Type Department Care Team Description 12/31/2024 10:00 AM EDT Office Visit [facility] Neurology - [facility] [address] [place], [place] [address]Y [address] [place] [address] Jewel Nunez MD Polyneuropathy (Primary Dx); Peripheral polyneuropathy 10/17/2024 2:30 PM EDT Office Visit [facility] Orthopedics [facility] [address] [place] [address] Monroe Lopez MD Sacroiliitis (HCC) (Primary Dx); Sacroiliac joint dysfunction of left side 10/15/2024 11:00 AM EDT Office Visit [facility] [address] [place] [address] Familia Perez APRN Sacroiliac joint dysfunction of left side (Primary Dx); Polyneuropathy 10/09/2024 1:30 PM EDT - 10/09/2024 11:59 PM EDT Hospital Encounter [facility] [address] [facility] [address] [place] [address] Monroe Lopez MD Radiculopathy of [...] 06/06/2023 Active rOPINIRole (REQUIP) 0.25 MG tablet 4 tablets (1 mg total). 04/28/2023 Active sertraline (ZOLOFT) 100 MG tablet Take 1 tablet (100 mg total) by mouth daily. 06/06/2023 Active tiZANidine (ZANAFLEX) 4 MG tablet Active venlafaxine (EFFEXOR) 75 MG tablet Daily 01/04/2024 Active HYDROcodone-dyan taminophen (NORCO) 10-325 mg per tablet Take 1 tablet by mouth 3 (three) times daily as needed. 10/08/2024 Active prasugreL HCl (EFFIENT) 10 mg [...] (12.5 mg total) by mouth once. Active spironolactone (ALDACTONE) 25 MG tablet Take 1 tablet (25 mg total) by mouth daily. 12/23/2024 Active DULoxetine (CYMBALTA) 30 MG capsule One PO qhs for 2 weeks, then 1 BID and continue.. 60 tablet 11 12/31/2024 Active Active Problems Problem Noted Date Diagnosed [...] Date Regis rded Speak language other than Estonian at home Not on file 08/02/2023 Want [...] AM EDT Temperature - - Respiratory Rate 19 02/15/2024 2:53 PM EDT Oxygen Saturation - - Inhaled Oxygen Concentration - - Weight 124.5 kg (274 lb 8 oz) 12/31/2024 10:11 A M EDT Height 167.6 cm (5' 6 ) 12/31/2024 10:11 AM EDT Body Mass Index 44.31 12/31/2024 10:11 AM EDT Plan of Treatment Upcoming Encounters Date Type Department Care Team (Late st Contact Info) Description 03/11/2025 1:00 PM EST Procedure Visit [facility] Neurology [facility] [address] [place] [address] 03/11/2025 2:15 PM EST Office Visit [facility] [address] [place] [address] Jewel Nunez MD [address] [facility] [address] [place] [address] Procedures Procedure Name Priority Date/Time Associated Diagnosis [...] Final Result from Last 3 Months Insurance [id number] (Home) [address] [facility] [place] [id number] AARP [place] [address] Care Teams Retail Consultant Relationship Specialty Start Date End Date Angeles Hartman, SOLVENT MIXER [address] [address] PCP - General Nurse Practitioner 07/19/24 Monroe Lopez MD [address] [place], [place] [phone] Sports Medicine 02/14/24 Familia Perez, SOLVENT MIXER [address] [place], [place] [phone] Orthopedic Surgery 03/25/24
--- OUTSIDE RECORDS SUMMARY | 2025-01-02 13:03 | XMS_ITS | Clinical Summary ---
Author Organization [employer] ([place], [place], [place], [place]) Address [address] [place] [address] Care Team Providers Care Fiber Optic Splicer Name Role Phone Monroe Lopez MD Unavailable Familia Perez APRN Unavailable [phone] Angeles Hartman APRN Primary Care Provider Allergies [...] EDT Office Visit [facility] Neurology [address] [place] [address] Jewel Nunez MD Polyneuropathy (Primary Dx); Peripheral polyneuropathy 10/17/2024 2:30 PM EDT Office Visit [facility] Orthopedics - [address] [place] [address] Monroe Lopez MD Sacroiliitis (HCC) (Primary Dx); Sacroiliac joint dysfunction of left side 10/15/2024 11:00 AM EDT Office Visit [facility] Orthopedics - [facility] [address] [place] [address] Familia Perez, MACHINE ROUGH ROUNDER Sacroiliac joint dysfunction of left side (Primary Dx); Polyneuropathy 10/09/2024 1:30 PM EDT - 10/09/2024 11:59 PM EDT Hospital Encounter [facility] MRI [address] [facility] [address] [place] [address] Monroe Lopez MD Radiculopathy of [...] Date Regis rded Speak language other than Cymraes at home Not on file 08/02/2023 Want [...] Description 03/11/2025 1:00 PM EST Procedure Visit [facility] Neurology - [facility] [address] [place] [address] 03/11/2025 2:15 PM EST Office Visit [facility]rology - [facility] [address] [place] [address] Jewel Nunez MD [address] [place] [address] [employer] [place] [address] [place] [address] Health Maintenance Due Date Last Done Comments CT Colonography 1967 Colonoscopy 1967 Colorectal Cancer Screening 1967 FOBT/FIT 1967 Fit-DNA (Cologuard) 1967 Sigmoidoscopy 1967 Depression Screening (12+) 1979 HIV Screening 09/19/1982 Hepatitis C Screening 09/19/1985 Pap Smear 09/19/1988 Breast Cancer Screening 2007 Lipid Panel 09/19/2012 Pneumococcal 50+ years (1 of 1 - PCV) 09/19/2017 Shingles Vaccine (Zoster) (1 of 2) 09/19/2017 COVID-19 VACCINE (1 - season) 2024 Medicare Initial AWV [id number] 05/08/2024 Influenza Vaccine (#1) 2025 Tobacco Cessation Counseling and Screening (12+) 10/15/2025 10/15/2024 DTAP/TDAP/TD VACCINES (3 - Td or Tdap) [...] Images reviewed, interpreted, and dictated by Dr. aTina Barillas. Transcribed by Rosalie Hernandez PA-C. Monroe Lopez MD IMG MRI ORDERABLES Final Result from Last 3 Months Insurance AARP MEDICARE COMPLETE MAP Care Teams Fiber Optic Splicer Relationship Specialty Start Date End Date Angeles Hartman APRN [address] [address] PCP - General Nurse Practitioner 07/19/24 Monroe Lopez MD [address] [place] [address] Sports Medicine 02/14/24 Familia Perez, MACHINE ROUGH ROUNDER [address] [place] [address] Orthopedic Surgery 03/25/24
--- OUTSIDE RECORDS SUMMARY | 2025-01-02 13:03 | XMS_ITS | Clinical Summary ---
Author Organization [facility] Address [address] [place] [address] Care Team Providers Care Hand Outside Cutter Name Role Phone HartmanMargueritebetty Gonzales APRN Primary Care Provider [phone] Allergies Active Allergy Reactions Criticality Noted Date Comments Atorvastatin Other - please docum ent in the comment field High 05/10/2023 Other reaction(s): Abdominal Pain Clopidogrel Other - please docum ent in the comment field High 05/10/2023 Other reaction(s): NON RESPONDER-STENT THROMBOSIS Medications rosuvastatin (Crestor) 5 MG tablet 06/08/2022 Active furosemide (Lasix) 20 MG tablet Active HYDROcodone-acet aminophen ([place]) 5-325 MG tablet 10/31/2022 Active Symbicort 160-4.5 [...] Team Description 10/14/2024 11:40 AM EDT [facility] [address] [place] [address] Alonso Sutton MD Lumbar radiculopathy [...] 09/19/2017 [facility]-Zoster Vaccines (1 of 2) 09/19/2017 [id number] Vaccine (1 - season) 2024 [facility]-Influenza Vaccine [...] IgM Negative Negative 11/03/2022 10:47 AM EDT [facility] Blood Venous blood specimen / Unknown Venipuncture / Unknown 11/03/2022 8:27 AM EDT 11/03/2022 8:28 AM EDT Janiya Huggins APRN LAB BLOOD ORDERABLES Fi nal Result Performing Organization Address City/State/[facility] Co de Phone Number [facility] [address] [place] [address] from Last 3 Months or Most Recently Relevant to Health Maintenance Insurance MEDICARE Care Teams Hand Outside Cutter Relationship Specialty Start Date End Date Angeles Hartman APRN [address] [place] [address] PCP - General 09/18/20
--- OUTSIDE RECORDS SUMMARY | 2025-01-02 13:03 | XMS_ITS | Encounter Summary ---
Author Organization [employer] ([place], [place], [place], [place]) Address [address] [place] [address] Care Team Providers Care Wiring Inspector Name Role Phone Monroe Lopez MD Unavailable Familia Perez APRN Unavailable [phone] Angeles Hartman APRN Primary Care Provider Encounter Details Date Type Department Care Team (Late st Contact Info) Description 07/18/2024 Outside Orders [facility] Admitting [address] [place] [address] Monroe Lopez MD [address] [place] [address] Social History Tobacco Use Types Packs/Day Years [...] Date Regis rded Speak language other than [place] at home Not on file 08/02/2023 Want [...] Description 03/11/2025 1:00 PM EST Procedure Visit [facility] [address] [place] [address] 03/11/2025 2:15 PM EST Office Visit [place] [address] [place] [address] Jewel Nunez MD [address] [facility] [address] [place] [address] documented as of this encounter Visit Diagnoses Not on filedocumented in this encounter Care Teams Wiring Inspector Relationship Specialty Start Date End Date Angeles Hartman, BUNK ASSEMBLER [address] [id number] PCP - General Nurse Practitioner 07/19/24 Monroe Lopez MD [address] [place] [address] Sports Medicine 02/14/24 Familia Perez, BUNK ASSEMBLER [address] [place] [address] Orthopedic Surgery 03/25/24 documented as of this encounter
== END 2025-01-01 23:59 | disposition home or self-care (01) ==
LOC: LAB.DROPOF 01-02 13:00
PROVIDERS: PCP Nurse Practitioner Family; Visit Provider Nurse Practitioner Family
DX: E83.42 Hypomagnesemia (principal)
CPT/HCPCS: 83735

== ENCOUNTER 2025-01-28 10:07 | Day surgery (SDC) | payer MEDICARE, SELFPAY ==
[2025-01-28 10:22] VITALS: BP 108/71; PULSE 67; RESP 18; O2SAT 96; BMI 43.5
[2025-01-28] MEDS: LIDOCAINE 1% 5ML PF VIAL 5 ML (10:27)
[2025-01-28] MEDS: BUPIVACAINE 0.25% 10ML INJ 25 MG IJ (10:27)
[2025-01-28] MEDS: DEXAMETHASONE 10MG/ML 1ML VIAL 10 MG (10:27)
--- NOTE | 2025-01-28 10:29 | EXP.PAIN.PRO ---
Procedure Date: 01/28/25 Time: 10:15 Anesthesiologist:: Familia Romero CRNA Complications:: None Pre-procedure Diagnosis:: DJD right knee. Chronic right knee pain. Status post left TKA. Chronic left knee pain. Post-procedure Diagnosis:: Same. Indications for Procedure:: Patient is a pleasant 59-year-old female comes our clinic today for bilateral infrapatellar nerve block. Patient describes bilateral knee pain as constant, dull, aching. Patient is status post left TKA. Has been recommended to her by orthopedics to have TKA on the right. However, patient not interested at this time. She describes her pain in the bilateral knees as constant, dull, aching. She is having difficulty with ambulation. She rates her pain 7/10. Procedure Details:: Details of the procedure explained to the patient. The patient taken procedure and placed in the sitting position. The over the bilateral knee was cleaned using chlorhexidine as a cleansing solution. Using a 25-gauge inch and half needle the bilateral infrapatellar branch of the saphenous nerve was accessed with ease. After negative aspiration 4 cc of 1% lidocaine +4 cc of 0.25% Marcaine and 10 mg of dexamethasone was injected incrementally. Patient tolerated procedure without difficulty. Dental complications. Plan and Disposition:: Patient was discharged without incident.
[2025-01-28 10:30] VITALS: BP 106/70; PULSE 66; RESP 16; O2SAT 98
[2025-01-28 10:48] VITALS: BP 108/71; PULSE 67; RESP 18; O2SAT 96
[2025-01-28 10:54] VITALS: BP 108/71; PULSE 67; RESP 18; O2SAT 96
== END 2025-01-28 10:30 | disposition home or self-care (01) ==
PROVIDERS: PCP Nurse Practitioner Family; Visit Provider Nurse Anesthetist, Certified Registered
DX: M17.11 Unilateral primary osteoarthritis, right knee (principal); M25.562 Pain in left knee; G89.29 Other chronic pain; I25.110 Atherosclerotic heart disease of native coronary artery with unstable angina pectoris; I25.2 Old myocardial infarction; E78.5 Hyperlipidemia, unspecified; K21.9 Gastro-esophageal reflux disease without esophagitis; F41.9 Anxiety disorder, unspecified; F32.A Depression, unspecified; I11.0 Hypertensive heart disease with heart failure; I50.9 Heart failure, unspecified; F17.210 Nicotine dependence, cigarettes, uncomplicated; Z96.652 Presence of left artificial knee joint; Z88.8 Allergy status to other drugs, medicaments and biological substances; Z79.82 Long term (current) use of aspirin; Z79.899 Other long term (current) drug therapy
CPT/HCPCS: 64447; J0665; J1100; J2003

== ENCOUNTER 2025-02-17 14:15 | Outpatient (CLI) | payer MEDICARE, SELFPAY ==
--- OUTSIDE RECORDS SUMMARY | 2024-12-31 10:00 | XMS_ITS | Encounter Summary ---
Author Organization [employer] ([place], [place], [place], [place]) Address [address] [place] [address] Care Team Providers Care Body And Frame Man Name Role Phone Monroe Lopez MD Unavailable Familia Perez APRN Unavailable [phone] Angeles Hartman APRN Primary Care Provider [phone] Reason for Visit * Reason Comments Peripheral Neuropathy * Consultation (Routine) - Closed Specialty Diagnoses / Procedures Referred By Contac t Referred To Contact Neurology Diagnoses Polyneuropathy New PT - Polyneuropathy (EMG done at [facility] 05/31/24) Procedures Ready Familia Perez, VIRY [address] [place] [address] Phone: tel: fax: Jewel Nunez MD [address] [place] [address] Phone: tel: fax: Referral ID Status Reason Start Date Expiration Date V isits Requested Visits Authorized [id number] Closed Specialty Services Required 10/15/2024 10/15/2025 1 1 Encounter Details Date Type Department Care Team (Late st Contact Info) Description 12/31/2024 10:00 AM EDT Office Visit [facility] Neurology - [place] [address] [place] [address] Jewel Nunez MD [address] [place] [address] Polyneuropathy (Primary Dx); Peripheral polyneuropathy Social History [...] Date Regis rded Speak language other than Italian at home Not on file 08/02/2023 Want [...] Plantar: downgoing Left Plantar: downgoing Coordination Right: Fubckl-xf-ocyp normal. Rapid alternating movement normal. Btog-uj-dviy normal.Left: Pnjxhx-sh-mpxh normal. Rapid alternating movement normal. Ulbu-hb-lnoc normal. Gait Normal casual, toe, heel and tandem gait. Romberg is absent. Physical Exam Vitals and nursing note reviewed. Exam conducted with a irrigating pump operator present. Constitutional: Appearance: Normal appearance. She is [...] Description 03/11/2025 1:00 PM EST Procedure Visit [facility] Neurology - [place] [address] [place] [address] 03/11/2025 2:15 PM EST Office Visit [facility] Neurology - [facility] [address] [place] [address] Jewel Nunez MD [address] [place] [address] nap- [facility] [address] [place] [address] Scheduled Orders Name Type Priority Associated Diagnoses Orde r Schedule EMG W/ NCS Neurology Routine Peripheral polyneuropathy Ordered: 12/31/2024 documented as of this encounter Procedures Procedure Name Priority Date/Time Associated Diagnosis Comments ANCA BY IFA (RDL) ([facility]) Routine 12/31/2024 11:15 AM EDT Peripheral polyneuropathy LYME DISEASE SEROLOGY W/REFLEX([facility]) Routine 12/31/2024 11:15 AM EDT Peripheral polyneuropathy COPPER, PLASMA AND RBC Routine 12/31/2024 11:15 AM EDT Peripheral polyneuropathy ANTI-HU, ANTI-RI, ANTI-YO IFA Routine 12/31/2024 11:15 AM EDT Peripheral polyneuropathy VITAMIN B1 (THIAMINE), WHOLE BLOOD, LC/MS/MS Routine 12/31/2024 11:15 AM EDT Peripheral polyneuropathy TSH W/REFLEX TO FT4 Routine 12/31/2024 1 1:15 AM EDT Peripheral polyneuropathy HGB A1C WITH EAG ESTIMA Routine 12/31/2024 11:15 AM EDT Peripheral polyneuropathy ANTINUCLEAR ANTIBODIES DIRECT Routine 12/31/2024 11:15 AM EDT Peripheral polyneuropathy VITAMIN B12 AND FOLATE Routine 12/31/2024 11:15 AM EDT Peripheral polyneuropathy SJOGREN'S ANTIBODIES Routine 12/31/2024 11:15 AM EDT Peripheral polyneuropathy METHYLMALONIC ACID Routine 12/31/2024 11 :15 AM EDT Peripheral polyneuropathy RHEUMATOID FACTOR AB, REFLEX TO TITER Routine 12/31/2024 11:15 AM EDT Peripheral polyneuropathy SEDIMENTATION RATE Routine 12/31/2024 11 :15 AM EDT Peripheral polyneuropathy ANGIOTENSIN CONVERTING ENZYME (KEENAN) Routine 12/31/2024 11:15 AM EDT Peripheral polyneuropathy VITAMIN E Routine 12/31/2024 11:15 AM EDT Peripheral polyneuropathy VITAMIN B6, PLASMA Routine 12/31/2024 11 :15 AM EDT Peripheral polyneuropathy PROTEIN ELECTROPHORESIS, SERUM WITH REFLEX TO IMMUNOTYPING Routine 12/31/2024 11:15 AM EDT Peripheral polyneuropathy documented in this encounter Results * Angiotensin Converting Enzyme (KEENAN) (12/31/2024 11:15 AM EDT) KEENAN 30 14 - 82 U/L [facility] Blood 12/31/2024 11:1 5 AM EDT 12/31/2024 Narrative [facility] - 01/11/2025 3:07 PM EDT Performed at: [address] [id number] Spooler Operator: Paddy Rivera PhD, Phone: [phone] us Jewel Nunez MD LAB BLOOD ORDERABLES Final Resul t [facility] * ANCA by IFA (RDL) (12/31/2024 11:15 AM EDT) ANCA by IFA (RDL) Negative Negative [facility] Blood 12/31/2024 11:1 5 AM EDT 12/31/2024 Narrative [facility] - 01/11/2025 3:07 PM EDT Performed at: 04 [employer] [address] [place] [id number] Spooler Operator: Dragan Rodrigues MD, Phone: [phone] us Jewel Nunez MD LAB BLOOD ORDERABLES Final Resul t [facility] * Anti-Hu, Anti-Ri, Anti-Yo IFA (12/31/2024 11:15 AM EDT) Anti-Hu Ab([facility]) Negative Negative [facility] Anti-Ri Ab([facility]) Negative Negative [facility] Anti-Yo Ab([facility]) Negative Negative [facility] 12/31/2024 11:1 5 AM EDT 12/31/2024 Narrative [facility] - 01/11/2025 3:07 PM EDT Test(s) 612346-Chbb-Jh Ab; 671982-Evwg-Jn Ab; 911409- [employer] Type-1 (Anti-Yo) Ab was developed and its performance characteristics determined by [facility]. It has not been cleared or approved by the Food and Drug Administration. Performed at: - [address] [id number] Spooler Operator: Tyesha Lorenzo MD, Phone: [phone] Jewel Nunez MD LAB BLOOD ORDERABLES Final Resul t Performing Organization Address [facility] Co de Phone Number [facility] * ANTINUCLEAR ANTIBODIES DIRECT (12/31/2024 11:15 AM EDT) Antinuclear Antibodies, IFA Negative [facility] Comment: Negative <1:80 Borderline 1:80 Positive >1:80 ICAP nomenclature: AC-0 For more information about Hep-2 cell patterns use ANApatterns.org, the official website for the International Consensus on Antinuclear Antibody (PHILLIP) Patterns (ICAP). Blood VENOUS STRUCTURE / Unknown 12/31/2024 11:15 AM EDT 12/31/2024 Narrative [facility] - 01/11/2025 3:07 PM EDT Performed at: - [address] [id number] Spooler Operator: Paddy Rivera PhD, Phone: [phone] Jewel Nunez MD LAB BLOOD ORDERABLES Final Resul t Performing Organization Address [facility]/ZIP Co de Phone Number [facility] * Copper, Plasma and RBC (12/31/2024 11:15 AM EDT) Copper, Pl([facility]) 1.25 0.65 - 1.92 ug/mL [facility] Copper, RBC([facility]) 0.70 0.50 - 1.00 ug/mL [facility] Comment: This test was developed and its performance characteristics determined by [facility]. It has not been cleared or approved by the Food and Drug Administration. 12/31/2024 11:1 5 AM EDT 12/31/2024 Narrative [facility] - 01/11/2025 3:07 PM EDT Performed at: 02 - [email or web address] [address] [place] [id number] Spooler Operator: Josee Ingram [facility], Phone: [phone] Jewel Nunez MD LAB BLOOD ORDERABLES Final Resul t Performing Organization Address [facility] de Phone Number [facility] * (ABNORMAL) HGB A1C WITH EAG ESTIMA (12/31/2024 11:15 AM EDT) Hemoglobin A1c 5.9(H) 4.8 - 5.6 % [facility] Comment: Prediabetes: 5.7 - 6.4 Diabetes: >6.4 Glycemic control for adults with diabetes: <7.0 Hemoglobin A1c 123 mg/dL [facility] 12/31/2024 11:1 5 AM EDT 12/31/2024 Narrative [facility] - 01/11/2025 3:07 PM EDT Performed at: 01 - [address] [id number] Spooler Operator: Paddy Rivera PhD, Phone: [phone] Jewel Nunez MD LAB BLOOD ORDERABLES Final Resul t Performing Organization Address City/[facility]/ZIP Co de Phone Number [facility] * Lyme Disease Serology w/Reflex (12/31/2024 11:15 AM EDT) Pathologist [facility] Lyme Total Antibody EIA Negative Negative [facility] Comment: Lyme antibodies not detected. Reflex testing is not indicated. No laboratory evidence of infection with B. burgdorferi (Lyme disease). Negative results may occur in patients recently infected (less than or equal to 14 days) with B. burgdorferi. If recent infection is suspected, repeat testing on a new sample collected in 7 to 14 days is recommended. Blood 12/31/2024 11:1 5 AM EDT 12/31/2024 Narrative [facility] - 01/11/2025 3:07 PM EDT Performed at: - [address] [id number] Spooler Operator: Paddy Rivera PhD, Phone: [phone] Jewel Nunez MD LAB BLOOD ORDERABLES Final Resul t Performing Organization Address City/[facility] Co de Phone Number [facility] * Methylmalonic acid (12/31/2024 11:15 AM EDT) [facility] Methylmalonic Acid, Serum 189 0 - 378 nmol/L [facility] Blood 12/31/2024 11:1 5 AM EDT 12/31/2024 Narrative [facility] - 01/11/2025 3:07 PM EDT Test(s) 082696-Arywtaqczcsxz Acid, Serum was developed and its performance characteristics determined by [facility]. It has not been cleared or approved by the Food and Drug Administration. Performed at: - [address] [id number] Spooler Operator: Tyesha Lorenzo MD, Phone: [phone] Jewel Nunez MD LAB BLOOD ORDERABLES Final Resul t Performing Organization Address City/[facility]/ZIP Co de Phone Number [facility] * VITAMIN E (12/31/2024 11:15 AM EDT) [facility] Vitamin E(Alpha Tocopherol) 12.2 7.0 - 25.1 mg/L [facility] Vitamin E(Gamma Tocopherol) 1.2 0.5 - 5.5 mg/L [facility] Comment: Reference intervals for alpha and gamma-tocopherol determined from National Health and Nutrition Examination Survey, 8346-6715. Individuals with alpha-tocopherol levels less than 5.0 mg/L are considered vitamin E deficient. Blood 12/31/2024 11:1 5 AM EDT 12/31/2024 Narrative [facility] - 01/11/2025 3:07 PM EDT Test(s) 831441-Ejwcduu E(Alpha Tocopherol); 979851- Vitamin E(Gamma Tocopherol) was developed and its performance characteristics determined by [facility]. It has not been cleared or approved by the Food and Drug Administration. Performed at: [address] [place] [id number] Spooler Operator: Tyesha Lorenzo MD, Phone: [phone] Jewel Nunez MD LAB BLOOD ORDERABLES Final Resul t Performing Organization Address [facility] de Phone Number [facility] * Vitamin B6, Plasma (12/31/2024 11:15 AM EDT) [facility] Vitamin B6 7.3 3.4 - 65.2 ug/L [facility] Comment: Deficiency: <3.4 Marginal: 3.4 - 5.1 Adequate: >5.1 Blood 12/31/2024 11:1 5 AM EDT 12/31/2024 Narrative [facility] - 01/11/2025 3:07 PM EDT Test(s) 478494-Daxhuxa B6 was developed and its performance characteristics determined by [facility]. It has not been cleared or approved by the Food and Drug Administration. Performed at: [address] [place] [address] [id number] Spooler Operator: Tyesha Lorenzo MD, Phone: [phone] Jewel Nunez MD LAB BLOOD ORDERABLES Final Resul t Performing Organization Address [facility] de Phone Number [facility] * Vitamin B12 and Folate (12/31/2024 11:15 AM EDT) [facility] Vitamin B12 404 232 - 1,245 pg/mL [facility] Folate (Folic Acid), Serum 14.1 >3.0 ng/mL [facility] Comment: A serum folate concentration of less than 3.1 ng/mL is considered to represent clinical deficiency. Blood 12/31/2024 11:1 5 AM EDT 12/31/2024 Narrative [facility] - 01/11/2025 3:07 PM EDT Performed at: - [address] [id number] Spooler Operator: Paddy Rivera PhD, Phone: [phone] Jewel Nunez MD LAB BLOOD ORDERABLES Final Resul t Performing Organization Address [facility] Co de Phone Number [facility] * Vitamin B1 (Thiamine), Whole Blood, LC/MS/MS (12/31/2024 11:15 AM EDT) [facility] Vit. B1, Whole Blood 107.3 66.5 - 200.0 nmol/L [facility] 12/31/2024 11:1 5 AM EDT 12/31/2024 [facility] - 01/11/2025 3:07 PM EDT Test(s) 830313-Bxb. B1, Whole Blood was developed and its performance characteristics determined by [facility]. It has not been cleared or approved by the Food and Drug Administration. Performed at: [address] [id number] Spooler Operator: Tyesha Lorenzo MD, Phone: [phone] Jewel Nunez MD LAB BLOOD ORDERABLES Final Resul t Performing Organization Address City/[facility]/ZIP Co de Phone Number [facility] * TSH W/REFLEX TO FT4 (12/31/2024 11:15 AM EDT) [facility] TSH 0.985 0.450 - 4.500 uIU/mL [facility] 12/31/2024 11:1 5 AM EDT 12/31/2024 Narrative [facility] - 01/11/2025 3:07 PM EDT Performed at: [address] [place] [id number] Spooler Operator: Paddy Rivera PhD, Phone: [phone] us Jewel Nunez MD LAB BLOOD ORDERABLES Final Resul t Performing Organization Address [facility] de Phone Number [facility] * Sjogren's antibodies (12/31/2024 11:15 AM EDT) Sjogren's Anti-SS-A <0.2 0.0 - 0.9 AI [facility] Sjogren's Anti-SS-B <0.2 0.0 - 0.9 AI [facility] Blood 12/31/2024 11:1 5 AM EDT 12/31/2024 Narrative [facility] - 01/11/2025 3:07 PM EDT Performed at: [address] [place] [id number] Spooler Operator: Paddy Rivera PhD, Phone: [phone] us Jewel Nunez MD LAB BLOOD ORDERABLES Final Resul t Performing Organization Address [facility] Phone Number [facility] * Sedimentation rate (12/31/2024 11:15 AM EDT) Sedimentation Rate-Westergren 12 0 - 40 mm/hr [facility] Blood 12/31/2024 11:1 5 AM EDT 12/31/2024 Narrative [facility] - 01/11/2025 3:07 PM EDT Performed at: [address] [place] [id number] Spooler Operator: Paddy Rivera PhD, Phone: [phone] us Jewel Nunez MD LAB BLOOD ORDERABLES Final Resul t Performing Organization Address [facility]/ZIP Co de Phone Number [facility] * Rheumatoid factor Ab, reflex to titer (12/31/2024 11:15 AM EDT) RA Latex Turbid. <10.0 <14.0 IU/mL [facility] Blood 12/31/2024 11:1 5 AM EDT 12/31/2024 Narrative [facility] - 01/11/2025 3:07 PM EDT Performed at: [address] [id number] Spooler Operator: Paddy Rivera PhD, Phone: [phone] Jewel Nunez MD LAB BLOOD ORDERABLES Final Resul t [facility] * PROTEIN ELECTROPHORESIS, SERUM WITH REFLEX TO IMMUNOTYPING (12/31/2024 11:15 AM EDT) Protein, Total, Serum 6.9 6.0 - 8.5 g/dL [facility] Albumin 3.8 2.9 - 4.4 g/dL [facility] Njyla-0-Ddpuiryn 0.3 0.0 - 0.4 g/dL [facility] Airtx-8-Jbonpqnd 1.0 0.4 - 1.0 g/dL [facility] Beta Globulin 1.1 0.7 - 1.3 g/dL [facility] Gamma Globulin 0.8 0.4 - 1.8 g/dL [facility] M-Zach Not Observed Not Observed g/dL [facility] Globulin, Total 3.1 2.2 - 3.9 g/dL [facility] A/G Ratio 1.2 0.7 - 1.7 [facility] Please note: Comment [facility] Comment: Protein electrophoresis scan will follow via computer, mail, or clay miner delivery. P E Interpretation, S Comment [facility] Comment: The SPE pattern appears unremarkable. Evidence of monoclonal protein is not apparent. Blood 12/31/2024 11:1 5 AM EDT 12/31/2024 Narrative [facility] - 01/11/2025 3:07 PM EDT Performed at: - [facility] [address] [place], [place] [id number] Spooler Operator: Paddy Rivera PhD, Phone: [phone] us Jewel Nunez MD LAB BLOOD ORDERABLES Final Resul t [facility] documented in this encounter Visit Diagnoses Diagnosis Polyneuropathy- Primary Unspecified hereditary and idiopathic peripheral neuropathy Peripheral polyneuropathy documented in this encounter Care Teams Body And Frame Man Relationship Specialty Start Date End Date Angeles Hartman, VIRY [address] [id number] PCP - General Nurse Practitioner 07/19/24 Monroe Lopez MD [address] [place], [place] [id number] Sports Medicine 02/14/24 Familia Perez, VIRY [address] [place], [place] [id number] Orthopedic Surgery 03/25/24 documented as of this encounter
--- OUTSIDE RECORDS SUMMARY | 2025-02-17 14:19 | XMS_ITS | Clinical Summary ---
Author Organization [facility] Address [address] [place] [address] Care Team Providers Care Sales Consultant Residential Manager Name Role Phone HartmanMargueritebetty Gonzales APRN Primary Care Provider [phone]- [phone] Allergies Active Allergy Reactions Criticality Noted Date Comments Atorvastatin Other - please docum ent in the comment field High 05/10/2023 Other reaction(s): Abdominal Pain Clopidogrel Other - please docum ent in the comment field High 05/10/2023 Other reaction(s): NON RESPONDER-STENT THROMBOSIS Medications rosuvastatin (Crestor) 5 MG tablet 06/08/2022 Active furosemide (Lasix) 20 MG tablet Active HYDROcodone-acet aminophen ([place]) 5-325 MG tablet 10/31/2022 Active Symbicort 160-4.5 [...] a day. 90 tablet 2 10/14/2024 Active Immunizations Immunization Administration Dates Next Due TD [...] 09/19/2017 UKY-Zoster Vaccines (1 of 2) 09/19/2017 [id number] Vaccine (1 - season) 2025 [facility]-Influenza Vaccine (#1) 2025 [facility]-Depression Screening 10/14/2025 [...] Antigen Negative Negative 11/03/2022 10:47 AM EDT [facility] Hepatitis C Antibody Negative Negative 11/03/2022 10:47 AM EDT [facility] Hepatitis A Antibody IgM Negative Negative 11/03/2022 10:47 AM EDT [facility] Hepatitis B Core Antibody IgM Negative Negative 11/03/2022 10:47 AM EDT [facility] Blood Venous blood specimen / Unknown Venipuncture / Unknown 11/03/2022 8:27 AM EDT 11/03/2022 8:28 AM EDT us Janiya Huggins SIGNS SALES REPRESENTATIVE LAB BLOOD ORDERABLES Fi nal Result [facility] [address] [place] [address] from Last 3 Months or Most Recently Relevant to Health Maintenance Insurance MEDICARE Care Teams Sales Consultant Residential Manager Relationship Specialty Start Date End Date Anglees Hartman APRN [address] [place] [phone] PCP - General 09/18/20
--- OUTSIDE RECORDS SUMMARY | 2025-02-17 14:19 | XMS_ITS | Encounter Summary ---
Author Organization [employer] ([place], [place], [place], [place]) Address [address] [place] [address] Care Team Providers Care Ophthalmology Technician Name Role Phone Monroe Lopez MD Unavailable Familia Perez APRN Unavailable [phone] Angeles Hartman APRN Primary Care Provider Reason for Visit * Reason Onset Date Comments Results 01/09/2025 Encounter Details Date Type Department Care Team (Late st Contact Info) Description 01/09/2025 Telephone [facility] Neurology - [address] [address] Danae Alexander CMA Results Social History Tobacco Use Types Packs/Day Years Used Date Smoking Tobacco: Former Cigarettes Smokeless Tobacco: Never Alcohol Use Standard [...] on file documented as of this encounter Miscellaneous Notes * Telephone Encounter - Danae Alexander CMA - 01/09/2025 3:30 PM EDT Pt called at 11:38 in regards to her blood work. I tried twice to call her number back but kept getting a busy tone. I tried her . He said she had them done in [place]. Though at [facility]. Said his was at a hair appointment and would be free in an hour and would have her call the clinic back with where she had the bloodwork done. He was advised that if I was out of the clinic to leave the information of my voicemail and I wouldinquire for the results when I returned to the clinic on Monday documented in this encounter Plan of Treatment Upcoming Encounters Date Type Department Care Team (Late st Contact Info) Description 03/11/2025 1:00 PM EST Procedure Visit [facility] [address] [place] [address] 03/11/2025 2:15 PM EST Office Visit [facility] Neurology [facility] [address] [place] [address] Jewel Nunez MD [address] [place] [address] [employer] [address] [place] [address] documented as of this encounter Visit Diagnoses Not on filedocumented in this encounter Care Teams Ophthalmology Technician Relationship Specialty Start Date End Date Angeles Hartman, VIRY [address] [address] PCP - General Nurse Practitioner 07/19/24 Monroe Lopez MD [address] [place] [address] Sports Medicine 02/14/24 Familia Perez APRN [address] [place] [address] Orthopedic Surgery 03/25/24 documented as of this encounter
--- OUTSIDE RECORDS SUMMARY | 2025-02-17 14:19 | XMS_ITS ---
Author Organization [facility] , [facility] Address [address] [place] [address] Phone Care Team Providers Care Timber Treating Tank Operator Name Role Phone IGNACIO PEOPLES Unavailable [phone] Nikunj HA, Joey Vieira Unavailable [phone] Reason for Referral Date [...] tatus Joint Pain Right Thumb 08/23/2023 Karlos VILLEGASC Active Last Documented On 4 10:36AM ; [facility] Lower Back Pain 01/17/2023 Richard Palomo PA-C A ctive Last Documented On 3 2:28PM ; [facility] Joint Pain Hip Left 06/14/2022 Richard Manning Active Last Documented On 3 3:30PM ; [facility] Joint Pain Right Knee 03/25/2022 Janell de paz PA-C Active Last Documented On 2 12:58PM ; [facility] Joint Pain in Both Knees 12/08/2020 Janell davidson PA-C Inactive Last Documented On 2 9:13AM ; [facility], [facility] Lower Back Pain 10/23/2020 11/15/2021 Janell Vila PA-C Resolved Last Documented On 2 9:13AM ; [facility], [facility] Plan of Treatment Pending Tests Order Diagnosis Results Due Ordering P rovider Radiology - Bone Scan Lower Extremity 12/22/20 Joey Calvin MD Last Documented On 1 3:29PM ; [facility], [facility] Radiology - MRI MRI Lumbar Spine 01/22/21 George in Yontaan Szymanski MD Last Documented On 1 1:39PM ; [facility], [facility] Instructions to patient Lose weight Last Documented On 5 1:01PM ; [facility] Intervention and counseling on cessation of tobacco use Last Documented On 4 1:05PM ; [facility] Lose weight Last Documented On 4 1:05PM ; [facility] Intervention and counseling on [...] weight Last Documented On 1 2:06PM ; [facility] Intervention and counseling on cessation of tobacco use Last Documented On 1 10:06AM ; [facility] Lose weight Last Documented On 1 10:06AM ; [facility] Assessments Includes: Assessments for all patient encounters Findings Encounter Date Overweight NEW PROBLEM/EST PT with Karlos jaime PA-C 06/05/2024 Last Documented On 5 3:40PM ; [facility] Overweight Follow Up with Karlos Mclaughlins PA -C 03/06/2024 Last Documented On 4 4:06PM ; [facility] Overweight Follow Up with Karlos Mayra PA -C 11/29/2023 Last Documented On 4 1:34PM ; [facility] Overweight Physician Specified with Karlos Nunez PA-C 08/23/2023 Last Documented On 4 11:23AM ; [facility] No diagnosis of underweight NEW PROBLEM/EST PT w mert Palomo PA-C 01/17/2023 Last Documented On 3 3:10PM ; [facility] Overweight NEW PROBLEM/EST PT with Richard Palomo PA-C 01/17/2023 Last Documented On 3 3:10PM ; [facility] No diagnosis of underweight Follow Up with Vamshi Palomo PA-C 01/16/2023 Last Documented On 3 11:40AM ; [facility] Overweight Follow Up with Richard Palomo PA- C 01/16/2023 Last Documented On 3 11:40AM ; [facility] No diagnosis of underweight INJECTION with Vamshi Martinez PA-C 06/24/2022 Last Documented On 3 8:21AM ; [facility] No diagnosis of underweight NEW PROBLEM/EST PT w ith Richard Palomo PA-C 06/14/2022 Last Documented On 3 4:53PM ; [facility] No diagnosis of underweight INJECTION with Janell Vila PA-C 03/25/2022 Last Documented On 2 1:59PM ; [facility] No diagnosis of underweight Follow Up with Vamshi Palomo PA-C 12/28/2021 Last Documented On 2 12:12PM ; [facility] No diagnosis of underweight Specialty Ph armacy [facility] Injection with Janell Vila PA-C 12/08/2021 Last Documented On 2 3:11PM ; [facility] No diagnosis of underweight Specialty Ph armacy [facility] Injection with Janell Vila PA-C 12/01/2021 Last Documented On 2 3:02PM ; [facility] No diagnosis of underweight Specialty Ph armacy [facility] Injection with Janell Vila PA-C 11/24/2021 Last Documented On 2 3:37PM ; [facility] No diagnosis of underweight Physician Specified with Janell Vila PA-C 11/15/2021 Last Documented On 2 10:11AM ; [facility] Instructions Includes: Instructions for all patient encounters Instructions to patient Lose weight Last Documented On 5 1:01PM ; [facility] Intervention and counseling on cessation of tobacco use Last Documented On 4 1:05PM ; [facility] Lose weight Last Documented On 4 1:05PM ; [facility] Intervention and counseling on cessation of tobacco use Last Documented On 4 1:08PM ; [facility] Lose weight Last Documented On 4 1:08PM ; [facility] Intervention and counseling on cessation of tobacco use Last Documented On 4 10:37AM ; [facility] Lose weight Last Documented On 4 10:37AM ; [facility] Intervention and counseling on cessation of tobacco use Last Documented On 4 10:46AM ; [facility] Lose weight Last Documented On 4 10:42AM ; [facility] No intervention and counseli ng [...] On 4 10:41AM By Geni Johns ; [facility] HYDROcodone-Acetaminophen 5-325 MG Oral Tablet 02/02/2 024 Provider: Diagnosis: Last Documented On 4 10:41AM By Geni Johns ; [facility] Repatha SureClick 140 MG/ML Subcutaneous Solution Auto-injector 06/08/2023 Provider: Diagnosis: Last Documented On 4 10:41AM By Geni Johns ; [facility], [facility] Pantoprazole Sodium 40 MG Or al Tablet Delayed Release 06/06/2023 Provider: IGNACIO PEOPLES Diagnosis: Last Documented On 4 10:41AM By Geni Johns ; [facility] Sertraline HCl 100 MG Oral Tablet 06/06/2023 Provide r: IGNACIO PEOPLES Diagnosis: Last Documented On 4 10:41AM By Geni Johns ; [facility] Fluconazole 100 MG Oral Tablet 06/06/2023 Provider: IGNACIO PEOPLES Diagnosis: Last Documented On 4 10:41AM By Geni Johns ; [facility], [facility] Ondansetron 4 MG Oral Tablet Disintegrating 06/06/2023 Provider: IGNACIO PEOPLES Diagnosis: Last Documented On 4 10:41AM By Geni Johns ; [facility], [facility] Albuterol Sulfate (2.5 MG/3M L) 0.083% Inhalation Nebulization solution 05/15/2023 Provider: IGNACIO PEOPLES Diagnosis: Last Documented On 4 10:41AM By Geni Johns ; [facility], [facility] Famotidine 20 MG Oral Tablet 05/12/2023 Provider: IGNACIO PEOPLES Diagnosis: Last Documented On 4 10:41AM By Geni Johns ; [facility], [facility] Nystatin [id number] UNIT/ML Mouth/Throat Suspension 2023 Provider: IGNACIO PEOPLES Diagnosis: Last Documented On 4 10:41AM By Geni Johns ; [facility], [facility] Rosuvastatin Calcium 10 MG Oral Tablet 02/23/2023 Pr ovider: Diagnosis: Last Documented On 4 10:41AM By Geni Johns ; [facility] Pregabalin 50 MG Oral Capsule 02/13/2023 Provider: IGNACIO PEOPLES Diagnosis: Last Documented On 4 10:41AM By Geni Johns ; [facility] Amitriptyline HCl 10 MG Oral Tablet 01/10/2023 Provi talat: IGNACIO PEOPLES Diagnosis: Last Documented On 3 11:02AM By Geni Johns ; [facility] Prasugrel HCl 10 MG Oral Tablet 01/03/2023 Provider: Diagnosis: Last Documented On 4 10:41AM By Geni Johns ; [facility] DULoxetine HCl 30 MG Oral Ca psule Delayed Release Particles 11/04/2022 Provider: IGNACIO PEOPLES Diagnosis: Last Documented On 4 10:41AM By Geni Johns ; [facility] Carvedilol 3.125 MG Oral Tablet 09/23/2022 Provider: Diagnosis: Last Documented On 4 10:41AM By Geni Johns ; [facility], [facility] Esomeprazole Magnesium 40 MG Oral Capsule Delayed Rele ase 06/24/2022 Provider: Diagnosis: Last Documented On 3 10:19AM By Selina Lucas ; [facility], [facility] tiZANidine HCl 2 MG Oral Tablet 06/24/2022 Provider: Diagnosis: Last Documented On 3 10:19AM By Selina Lucas ; [facility], [facility] Past Medications on file Meloxicam 15 MG Oral Tablet 06/30/2023 - 07/30/2023 Pr ovider: Richard Palomo PA-C Diagnosis: Take t tablet by mouth once a day Last Documented On 4 11:20AM By Geni Johns ; [facility] Famotidine 20 MG Oral Tablet 01/10/2023 - 06/30/2023 Mickey bustillo: IGNACIO PEOPLES Diagnosis: Last Documented On 4 10:43AM By Geni Johns ; [facility] Rosuvastatin Calcium 5 MG Oral Tablet 01/06/2023 - Provider: Diagnosis: Last Documented On 4 10:42AM By Geni Johns ; [facility] Prasugrel HCl 10 MG Oral Tablet 01/03/2023 - Provider: Diagnosis: Last Documented On 4 10:42AM By Gein Johns ; [facility] Naproxen 250 MG Oral Tablet 12/23/2022 - 06/30/2023 Pr ovider: Diagnosis: Last Documented On 4 10:43AM By Geni Johns ; [facility] Effient 5 MG Oral Tablet 06/24/2022 - 01/16/2023 Provi talat: Diagnosis: Last Documented On 3 11:03AM By Geni Johns ; [facility] Aspirin 325 MG Oral Tablet 06/24/2022 - 01/16/2023 Pro vider: Diagnosis: Last Documented On 3 11:03AM By Geni Johns ; [facility], [facility] Repatha SureClick 140 MG/ML Subcutaneous Solution Auto-injector 06/24/2022 - 01/16/2023 Provider: Diagnosis: Last Documented On 3 11:04AM By Geni Johns ; [facility], [facility] Rosuvastatin Calcium 5 MG Oral Tablet 11/15/2021 - Provider: Diagnosis: Last Documented On 3 10:19AM By Selina Lucas ; [facility], [facility] Esomeprazole Magnesium 40 MG Oral Capsule Delayed Release 11/15/2021 - 06/24/2022 Provider: Diagnosis: Last Documented On 3 10:19AM By Selina Lucas ; [facility], [facility] DULoxetine HCl 20 MG Oral Ca psule Delayed Release Sprinkle 11/15/2021 - 06/24/2022 Provider: Diagnosis: Last Documented On 3 10:19AM By Selina Lucas ; [facility], [facility] Bisoprolol Fumarate 5 MG Oral Tablet 11/15/2021 - 06/08 Provider: Diagnosis: Last Documented On 3 10:18AM By Selina Lucas ; [facility] tiZANidine HCl 2 MG Oral Tablet 11/15/2021 - 3 Provider: Diagnosis: Last Documented On 3 10:19AM By Selina Lucas ; [facility], [facility] Aspirin 325 MG Oral Tablet 11/15/2021 - 06/24/2022 Pro vider: Diagnosis: Last Documented On 3 10:18AM By Selina Lucas ; [facility], [facility] CeleBREX 200 MG Oral Capsule 03/04/2021 - 11/24/2021 P keny: Joey Calvin MD Diagnosis: once a day Last Documented On 2 3:02PM By Jason Santana ; [facility], [facility] Esomeprazole Magnesium 40 MG Oral Capsule Delayed Release 10/10/2020 - 11/15/2021 Provider: IGNACIO DUDLEY ER Diagnosis: Last Documented On 2 9:13AM By Jason Santana ; [facility], [facility] Triamterene-HCTZ 37.5-25 MG Oral Tablet 10/09/2020 - 11/15/2021 Provider: IGNACIO PEOPLES Diagnosis: Last Documented On 2 9:13AM By Jason Santana ; [facility], [facility] Gabapentin 800 MG Oral Tablet 10/08/2020 - 11/15/2021 Provider: IGNACIO PEOPLES Diagnosis: Last Documented On 2 9:13AM By Jason Santana ; [facility], [facility] traMADol HCl 50 MG Oral Tablet 09/17/2020 - 11/15/2021 Provider: IGNACIO PEOPLES Diagnosis: Last Documented On 2 9:13AM By Jason Santana ; [facility], [facility] Sertraline HCl 50 MG Oral Tablet 09/02/2020 - 11/16/19 Provider: IGNACIO PEOPLES Diagnosis: Last Documented On 2 9:13AM By Jason Santana ; [facility], [facility] Medications Administered Includes: Administered Medications in patient's chart No Administered Medications Recorded Vital Signs Includes: Vital Signs from 02/18/2024 through 02/17/2025 Vital Name 06/05/2024 01:02P 03/06/2024 01: 06P Height (in) 67 67 Weight (lb) 257 257 Body Mass Index 40.3 40.3 Body Surface Area 2.2 2.2 Note: mg KL Last Documented: On 06/05/2024 1:02PM ; [facility] On 03/06/2024 1:06PM ; [facility] Results Includes: Results from 02/18/2024 through 02/17/2025 No Results Recorded For Specified Dates History of Present Illness History of Present Illness not supported for this document type No History of Present Illness Recorded Social History Description Last Updated Tobacco use 06/24/2022 Last Documented On 3 8:21AM ; [facility] Tobacco non-user 03/25/2022 Last Documented On 2 1:59PM ; [facility] Exercising regularly 03/25/2022 Last Documented On 2 1:59PM ; [facility] No recent change in diet 03/25/2022 Last Documented On 2 1:59PM ; [facility] Not a smoker 03/25/2022 Last Documented On 2 1:59PM ; [facility] Not using alcohol 03/25/2022 Last Documented On 2 1:59PM ; [facility] Not using drugs 03/25/2022 Last Documented On 2 1:59PM ; [facility] Non-smoker 12/08/2021 Last Documented On 2 3:11PM ; [facility] Caffeine use 11/15/2021 Last Documented On 2 10:11AM ; [facility] Yes, current smoker. 11/15/2021 Last Documented On 2 10:11AM ; [facility] Never drank alcohol 11/15/2021 Last Documented On 2 10:11AM ; [facility] Never used drugs 11/15/2021 Last Documented On 2 10:11AM ; [facility] No recent change in diet 12/08/2020 Last Documented On 1 3:29PM ; [facility] Yes, current smoker. 12/08/2020 Last Documented On 1 3:29PM ; [facility], [facility] Smoking Status Unknown Procedures and Surgical History Includes: Procedures from 02/18/2024 through 02/17/2025 Procedures Code Diagnosis Performing Provider Service Location Service Date COCK-UP WRIST SPLINT WITH OR W/O THUMB (RIGHT) [id number] Unil primary osteoarth of first carpometacarp joint, r charmaine Fagan MD [facility] 06/05/2024 Last Documented On 5 12:33PM ; [facility], [facility] Injection, betamethasone acetate 6mg per cc and betamethason [id number] Unil primary osteoarth of first carpometacarp joint, r hand Nikolai Fagan MD [facility] 06/05/2024 Last Documented On 5 12:32PM ; [facility], [facility] DRAIN/INJECT, JOINT/BURSA (RIGHT) Unil primary osteoarth of first carpometacarp joint, r charmaine Fagan MD [facility] 06/05/2024 Last Documented On 5 12:32PM ; [facility], [facility] Surgical History Last Updated History of History of Gallbladder 2021 Last Documented On 2 10:11AM ; [facility], [facility] History of shoulder arthroplasty 022 Last Documented On 2 10:11AM ; [facility], [facility] History of total knee arthroplasty 11/15 Last Documented On 2 10:11AM ; [facility], [facility] History of Past Surgical History: 2021 Last Documented On 2 10:11AM ; [facility], [facility] Medical History Includes: Medical History in patient's chart Description Last Updated No recent immunization for flu 2 Last Documented On 2 1:59PM ; [facility], [facility] No recent immunization for pneumococcal pneumonia 03/25/2022 Last Documented On 2 1:59PM ; [facility], [facility] History of arthritis 11/15/2021 Last [...] 2021 Last Documented On 2 10:11AM ; [facility] History of History of Heart Attack / Str giselle 11/15/2021 Last Documented On 2 10:11AM ; [facility] History of osteoporosis 11/15/2021 Last Documented On 2 10:11AM ; [facility] Arthritis 11/15/2021 Last Documented On 2 10:11AM ; [facility] Asthma 11/15/2021 Last Documented On 2 10:11AM ; [facility] Depression 11/15/2021 Last Documented On 2 10:11AM ; [facility] Heart disease 11/15/2021 Last Documented On 2 10:11AM ; [facility] Heartburn / Acid Reflux 11/15/2021 Last Documented On 2 10:11AM ; [facility] History of Blood Clots 11/15/2021 Last Documented On 2 10:11AM ; [facility] History of Gallbladder [...] Last Documented On 2 10:11AM ; [facility], [facility] Family History Includes: Family History in patient's chart Description Last Updated Family history of cancer 11/15/2021 Last Documented On 2 10:11AM ; [facility] Family history of heart disease 11/16/19 22 Last Documented On 2 10:11AM ; [facility] Family history of rheumatoid arthritis 0 11/15/2021 Last Documented On 2 10:11AM ; [facility], [facility] Maternal grandfather's history of family history of heart disease 11/15/2021 Last Documented On 2 10:11AM ; [facility], [facility] Maternal grandmother's history of family history of heart disease 11/15/2021 Last Documented On 2 10:11AM ; [facility] Maternal grandmother's history of rheuma toid arthritis 11/15/2021 Last Documented On 2 10:11AM ; [facility], [facility] Maternal history of family history of ca ncer 11/15/2021 Last Documented On 2 10:11AM ; [facility], [facility] Maternal history of family history of he art disease 11/15/2021 Last Documented On 2 10:11AM ; [facility] Paternal grandfather's history of family history of heart disease 11/15/2021 Last Documented On 2 10:11AM ; [facility] Diabetes mellitus 12/08/2020 Last Documented On 1 3:29PM ; [facility] Review of Systems Review of Systems [...] 11/15/2021 Complete (Refused - Patient objection) [facility] Last Documented On 2 12:35PM ; [facility] PCV (Pneumovax 23) 1 11/15/2021 Complete (Refused - Patient objection) [facility] Last Documented On 2 12:35PM ; [facility] Td 1 11/15/2021 Complete (Refused - Patient objection) [facility] Last Documented On 2 12:35PM ; [facility] Allergies Includes: Active, inactive, and resolved Allergies No Known Allergies Encounters Includes: Encounters from 02/18/2024 through 02/17/2025 Encounter Provider Location Date Check-In Time Check-Out Time Diagnosis [employer] [employer] Karlos Nunez PA-C [facility] 06/05/19 1:55PM 11:59PM NEW PROBLEM/EST PT Karlos Nunez PA-C [facility] 06/05/19 1:00PM 1:44PM Overweight [facility] Konrad Miguel [facility] 05/31/19 10:57AM 03/06/2024 11:59PM Follow Up Karlos Nunez PA-C [facility] 03/06/20 12:58PM 1:18PM Overweight Insurance Includes: Active Insurance Policies Plan Name Member ID Group # Subscriber Relationship Effect [id number] Dates 1 - [facility]/ [employer] [id number] Mela Neves Self Clinical Notes Includes: Signed Clinical Notes starting from 04/21/2022 * Progress note Date Encounter Last Documented by 06/05/2024 NEW PROBLEM/EST PT Last document ed on 06/05/2024; 3:40 PM, Karlos Nunez PA-C; [facility] Active Problems & Conditions - [...] Tablet 30 days, 0 refills - Nystatin [id number] UNIT/ML Mouth/Throat Suspension 14 days, 0 refills [...] documented on 03/06/2024; 4:06 PM, Karlos Mcneil; [facility], [facility] Active Problems & Conditions - [...] Tablet 30 days, 0 refills - Nystatin [id number] UNIT/ML Mouth/Throat Suspension 14 days, 0 refills [...]
--- OUTSIDE RECORDS SUMMARY | 2025-02-17 14:19 | XMS_ITS | Clinical Summary ---
Author Organization [facility] Address [address] [place] 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 Lower Back Pain 01/17/2023 Richard Palomo PA-C A ctive Last Documented On 3 2:28PM ; [facility] Joint Pain Hip Left 06/14/2022 Richard Manning Active Last Documented On 3 3:30PM ; [facility] Joint Pain Right Knee 03/25/2022 Janell de paz PA-C Active Last Documented On 2 12:58PM ; [facility] Plan of Treatment No Plan of Treatment Recorded Assessments Includes: Assessments from this encounter No Assessments Recorded Medical Equipment - Implanted Devices Includes: Current Devices No Medical Equipment Recorded Medications Includes: Medications discussed during this encounter and other current Medications Current Medications (continue as prescribed) Naproxen 500 MG Oral Tablet 06/24/2023 Provider: IGNACIO PEOPLES Diagnosis: Last Documented On 4 10:41AM By Geni Johns ; [facility] HYDROcodone-Acetaminophen 5-325 MG Oral Tablet 024 Provider: Diagnosis: Last Documented On 4 10:41AM By Geni Johns ; [facility] Repatha SureClick 140 MG/ML Subcutaneous Solution Auto-injector 06/08/2023 Provider: Diagnosis: Last Documented On 4 10:41AM By Geni Johns ; [facility] Pantoprazole Sodium 40 MG Or al Tablet Delayed Release 06/06/2023 Provider: IGNACIO PEOPLES Diagnosis: Last Documented On 4 10:41AM By Geni Johns ; [facility] Sertraline HCl 100 MG Oral Tablet 06/06/2023 Provide r: IGNACIO PEOPLES Diagnosis: Last Documented On 4 10:41AM By Geni Johns ; [facility] Fluconazole 100 MG Oral Tablet 06/06/2023 Provider: IGNACIO PEOPLES Diagnosis: Last Documented On 4 10:41AM By Geni Johns ; [facility] Ondansetron 4 MG Oral Tablet Disintegrating 06/06/2023 Provider: IGNACIO PEOPLES Diagnosis: Last Documented On 4 10:41AM By Geni Johns ; [facility] Albuterol Sulfate (2.5 MG/3M L) 0.083% Inhalation Nebulization solution 05/15/2023 Provider: IGNACIO PEOPLES Diagnosis: Last Documented On 4 10:41AM By Geni Johns ; [facility] Famotidine 20 MG Oral Tablet 05/12/2023 Provider: IGNACIO PEOPLES Diagnosis: Last Documented On 4 10:41AM By Geni Johns ; [facility] Nystatin 621930 UNIT/ML Mouth/Throat Suspension 2023 Provider: IGNACIO PEOPLES Diagnosis: Last Documented On 4 10:41AM By Geni Johns ; [facility] Rosuvastatin Calcium 10 MG Oral Tablet 02/23/2023 Pr ovider: Diagnosis: Last Documented On 4 10:41AM By Geni Johns ; [facility] Pregabalin 50 MG Oral Capsule 02/13/2023 Provider: IGNACIO PEOPLES Diagnosis: Last Documented On 4 10:41AM By Geni Johns ; [facility] Amitriptyline HCl 10 MG Oral Tablet 01/10/2023 Provi talat: IGNACIO SHELTON Diagnosis: Last Documented On 3 11:02AM By Geni Johns ; [facility] Prasugrel HCl 10 MG Oral Tablet 01/03/2023 Provider: Diagnosis: Last Documented On 4 10:41AM By Geni Johns ; [facility] DULoxetine HCl 30 MG Oral Ca psule Delayed Release Particles 11/04/2022 Provider: IGNACIO PEOPLES Diagnosis: Last Documented On 4 10:41AM By Geni Johns ; [facility] Carvedilol 3.125 MG Oral Tablet 09/23/2022 Provider: Diagnosis: Last Documented On 4 10:41AM By Geni Johns ; [facility] Esomeprazole Magnesium 40 MG Oral Capsule Delayed Rele ase 06/24/2022 Provider: Diagnosis: Last Documented On 3 10:19AM By Selina Lucas ; [facility] tiZANidine HCl 2 MG Oral Tablet 06/24/2022 Provider: Diagnosis: Last Documented On 3 10:19AM By Selina Lucas ; [facility] Medications Administered Includes: Administered Medications [...] Encounters Encounter Provider Location Date Check-In Time Check- Out Time Diagnosis EMG Konrad Rivera [facility] 5 10:57AM 11:59PM Insurance Includes: Active Insurance Policies Plan Name Member ID Group # Subscriber Relationship Effect daksha Dates - [facility] [id number] Mela Neves Self Clinical Notes Includes: Clinical Notes from this encounter No Clinical Notes Recorded
--- OUTSIDE RECORDS SUMMARY | 2025-02-17 14:19 | XMS_ITS | Encounter Summary ---
Author Organization [employer] ([place], [place], [place], [place]) Address [address] [place] [address] Care Team Providers Care Classroom Teacher Name Role Phone Monroe Lopez MD Unavailable Familia Perez APRN Unavailable [phone] Angeles Hartman APRN Primary Care Provider Encounter Details Date Type Department Care Team (Late st Contact Info) Description 07/18/2024 Outside Orders [facility] Admitting [address] [place] [address] Monroe Lopez MD [address] [place] [address] Social History Tobacco Use Types Packs/Day Years [...] Date Regis rded Speak language other than Swiss at home Not on file 08/02/2023 Want [...] Description 03/11/2025 1:00 PM EST Procedure Visit [facility] [address] [place] [address] 03/11/2025 2:15 PM EST Office Visit [place] [address] [place] [address] Jewel Nunez MD [address] [place] [address] documented as of this encounter Visit Diagnoses Not on filedocumented in this encounter Care Teams Classroom Teacher Relationship Specialty Start Date End Date Angeles Hartman, [employer] [address] [id number] PCP - General Nurse Practitioner 07/19/24 Monroe Lopez MD [address] [place] [address] Sports Medicine 02/14/24 Familia Perez, [employer] [address] [place] [address] Orthopedic Surgery 03/25/24 documented as of this encounter
--- OUTSIDE RECORDS SUMMARY | 2025-02-17 14:20 | XMS_ITS | Clinical Summary ---
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 Name Role Phone IGNACIO HARTMAN Unavailable [phone] Nikunj HA, Joey Vieira Unavailable [phone] Reason for Visit and Chief Complaint The Chief Complaint is: lt elbow pain Problems Includes: Problems addressed during this encounter and other active Problems Current Visit Onset Date Resolved Date Provider Conditio n Status Lower Back Pain 01/17/2023 Richard Palomo PA-C A ctive Last Documented On 3 2:28PM ; [facility] Lower Back Pain 10/23/2020 11/15/2021 Janell Vila PA-C Resolved Last Documented On 2 9:13AM ; [facility], [facility] Past Visits Onset Date Resolved Date Provider Condition Status Joint Pain Right Thumb 08/23/2023 Karlos de paz PA-C Active Last Documented On 4 10:36AM ; [facility] Joint Pain Hip Left 06/14/2022 Richard Manning Active Last Documented On 3 3:30PM ; [facility] Joint Pain Right Knee 03/25/2022 Janell de paz PA-C Active Last Documented On 2 12:58PM ; [facility] Plan of Treatment Pending Tests Order Diagnosis Results Due Ordering P rovider Therapy - Occupational Therapy Elbow Overweight 06/05 Karlos Nunez PA-C Last Documented On 5 3:40PM ; [facility], [facility] Instructions to patient Lose weight Last Documented On 5 1:01PM ; [facility], [facility] Assessments Includes: Assessments from this encounter Findings - Overweight - Last Documented On 06/05/2024 3:40PM ; [facility], [facility] Instructions Includes: Instructions from this encounter Instructions to patient Lose weight Last Documented On 5 1:01PM ; [facility], [facility] Medical Equipment - Implanted Devices Includes: Current Devices No Medical Equipment Recorded Medications Includes: Medications discussed during this encounter and other current Medications Current Medications (continue as prescribed) Naproxen 500 MG Oral Tablet 06/24/2023 Provider: IGNACIO HARTMAN Diagnosis: Last Documented On 4 10:41AM By Geni Johns ; [facility], [facility] HYDROcodone-Acetaminophen 5-325 MG Oral Tablet 024 Provider: Diagnosis: Last Documented On 4 10:41AM By Geni Johns ; [facility], [facility] Repatha SureClick 140 MG/ML Subcutaneous Solution Auto-injector 06/08/2023 Provider: Diagnosis: Last Documented On 4 10:41AM By Geni Johns ; [facility], [facility] Pantoprazole Sodium 40 MG Or al Tablet Delayed Release 06/06/2023 Provider: IGNACIO HARTMAN Diagnosis: Last Documented On 4 10:41AM By Geni Johns ; [facility], [facility] Sertraline HCl 100 MG Oral Tablet 06/06/2023 Provide r: IGNACIO HARTMAN Diagnosis: Last Documented On 4 10:41AM By Geni Johns ; [facility], [facility] Fluconazole 100 MG Oral Tablet 06/06/2023 Provider: IGNACIO HARTMAN Diagnosis: Last Documented On 4 10:41AM By Geni Johns ; [facility], [facility] Ondansetron 4 MG Oral Tablet Disintegrating 06/06/2023 Provider: IGNACIO HARTMAN Diagnosis: Last Documented On 4 10:41AM By Geni Johns ; [facility], [facility] Albuterol Sulfate (2.5 MG/3M L) 0.083% Inhalation Nebulization solution 05/15/2023 Provider: IGNACIO HARTMAN Diagnosis: Last Documented On 4 10:41AM By Geni Johns ; [facility] Famotidine 20 MG Oral Tablet 05/12/2023 Provider: IGNACIO HARTMAN Diagnosis: Last Documented On 4 10:41AM By Geni Johns ; [facility] Nystatin 938151 UNIT/ML Mouth/Throat Suspension 2023 Provider: IGNACIO HARTMAN Diagnosis: Last Documented On 4 10:41AM By Geni Johns ; [facility] Rosuvastatin Calcium 10 MG Oral Tablet 02/23/2023 Pr ovider: Diagnosis: Last Documented On 4 10:41AM By Geni Johns ; [facility] Pregabalin 50 MG Oral Capsule 02/13/2023 Provider: IGNACIO HARTMAN Diagnosis: Last Documented On 4 10:41AM By Geni Johns ; [facility] Amitriptyline HCl 10 MG Oral Tablet 01/10/2023 Provi talat: IGNACIO SHELTON Diagnosis: Last Documented On 3 11:02AM By Geni Johns ; [facility] Prasugrel HCl 10 MG Oral Tablet 01/03/2023 Provider: Diagnosis: Last Documented On 4 10:41AM By Geni Johns ; [facility] DULoxetine HCl 30 MG Oral Ca psule Delayed Release Particles 11/04/2022 Provider: IGNACIO HARTMAN Diagnosis: Last Documented On 4 10:41AM By Geni Johns ; [facility] Carvedilol 3.125 MG Oral Tablet 09/23/2022 Provider: Diagnosis: Last Documented On 4 10:41AM By Geni Johns ; [facility] Esomeprazole Magnesium 40 MG Oral Capsule Delayed Rele ase 06/24/2022 Provider: Diagnosis: Last Documented On 3 10:19AM By Selina Lucas ; [facility] tiZANidine HCl 2 MG Oral Tablet 06/24/2022 Provider: Diagnosis: Last Documented On 3 10:19AM By Selina Lucas ; [facility] Past Medications on file Meloxicam 15 MG Oral Tablet 06/30/2023 - 07/30/2023 Pr ovider: Richard Palomo PA-C Diagnosis: Take t tablet by mouth once a day Last Documented On 4 11:20AM By Geni Johns ; [facility] Medications Administered Includes: Administered Medications from this encounter No Administered Medications Recorded Vital Signs Includes: Vital Signs from this encounter Vital Name 06/05/2024 01:02P Height (in) 67 Weight (lb) 257 Body Mass Index 40.3 Body Surface Area 2.2 Note: mg Last Documented: On 06/05/2024 1:02PM ; [facility] Results Includes: Results discussed during this encounter No Results Recorded For Specified Dates History of Present Illness Includes: History of Present Illness from this encounter CELESTE Neves is a 58 year old female. [...] 06/24/2022 Last Documented On 5 1:01PM ; [facility] Tobacco non-user 03/25/2022 Last Documented On 5 1:01PM ; [facility] Exercising regularly 03/25/2022 Last Documented On 5 1:01PM ; [facility] No recent change in diet 03/25/2022 Last Documented On 5 1:01PM ; [facility] Not a smoker 03/25/2022 Last Documented On 5 1:01PM ; [facility], [facility] Not using alcohol 03/25/2022 Last Documented On 5 1:01PM ; [facility], [facility] Not using drugs 03/25/2022 Last Documented On 5 1:01PM ; [facility] Non-smoker 12/08/2021 Last Documented On 5 1:01PM ; [facility] Caffeine use 11/15/2021 Last Documented On 5 1:01PM ; [facility] Yes, current smoker. 11/15/2021 Last Documented On 5 1:01PM ; [facility], [facility] Never drank alcohol 11/15/2021 Last Documented On 5 1:01PM ; [facility], [facility] Never used drugs 11/15/2021 Last Documented On 5 1:01PM ; [facility], [facility] No recent change in diet 12/08/2020 Last Documented On 5 1:01PM ; [facility], [facility] Yes, current smoker. 12/08/2020 Last Documented On 5 1:01PM ; [facility], [facility] Smoking Status Unknown Procedures and Surgical History Includes: Procedures from this encounter Procedures Code Diagnosis Performing Provider Service Location Service Date DRAIN/INJECT, JOINT/BURSA (RIGHT) Unil primary osteoarth of first carpometacarp joint, r hand Nikolai Fagan MD [facility] 06/05/2024 Last Documented On 5 12:32PM ; [facility], [facility] Injection, betamethasone acetate 6mg per cc and betamethason J0702 Unil primary osteoarth of first carpometacarp joint, r hand Nikolai Fagan MD [facility] 06/05/2024 Last Documented On 5 12:32PM ; [facility], [facility] use of tobacco assessment performed 1000F Last Documented On 5 1:01PM ; [facility], [facility] review of medications documented 1160F Last Documented On 5 1:01PM ; [facility] an X-ray was performed 05586 Last Documented On 5 1:01PM ; [facility], [facility] brace Last Documented On 5 1:01PM ; [facility], [facility] Surgical History Last Updated History of History of Gallbladder 2021 Last Documented On 5 1:01PM ; [facility], [facility] History of shoulder arthroplasty 022 Last Documented On 5 1:01PM ; [facility], [facility] History of total knee arthroplasty 11/15 Last Documented On 5 1:01PM ; [facility], [facility] History of Past Surgical History: 2021 Last Documented On 5 1:01PM ; [facility], [facility] Medical History Includes: Medical History addressed during this encounter Description Last Updated No recent immunization for flu 2 Last Documented On 5 1:01PM ; [facility], [facility] No recent immunization for pneumococcal pneumonia 03/25/2022 Last Documented On 5 1:01PM ; [facility], [facility] History of arthritis 11/15/2021 Last Documented On 5 1:01PM ; [facility], [facility] History of asthma 11/15/2021 Last Documented On 5 1:01PM ; [facility], [facility] History of depression 11/15/2021 Last Documented On 5 1:01PM ; [facility], [facility] History of heart disease 11/15/2021 Last Documented On 5 1:01PM ; [facility] History of History of Blood Clots 2021 Last Documented On 5 1:01PM ; [facility], [facility] History of History of Heart Attack / Str giselle 11/15/2021 Last Documented On 5 1:01PM ; [facility], [facility] History of osteoporosis 11/15/2021 Last Documented On 5 1:01PM ; [facility], [facility] Arthritis 11/15/2021 Last Documented On 5 1:01PM ; [facility], [facility] Asthma 11/15/2021 Last Documented On 5 1:01PM ; [facility] Depression 11/15/2021 Last Documented On 5 1:01PM ; [facility] Heart disease 11/15/2021 Last Documented On 5 1:01PM ; [facility] Heartburn / Acid Reflux 11/15/2021 Last Documented On 5 1:01PM ; [facility] History of Blood Clots 11/15/2021 Last Documented On 5 1:01PM ; [facility] History of Gallbladder 11/15/2021 Last Documented On 5 1:01PM ; [facility] History of Heart Attack / Stroke 022 Last Documented On 5 1:01PM ; [facility] Osteoporosis 11/15/2021 Last Documented On 5 1:01PM ; [facility] Shoulder arthroplasty 11/15/2021 Last Documented On 5 1:01PM ; [facility] Total knee arthroplasty 11/15/2021 Last Documented On 5 1:01PM ; [facility], [facility] Family History Includes: Family History addressed during this encounter Description Last Updated Family history of cancer 11/15/2021 Last Documented On 5 1:01PM ; [facility] Family history of heart disease 11/16/19 22 Last Documented On 5 1:01PM ; [facility], [facility] Family history of rheumatoid arthritis 0 11/15/2021 Last Documented On 5 1:01PM ; [facility], [facility] Maternal grandfather's history of family history of heart disease 11/15/2021 Last Documented On 5 1:01PM ; [facility] Maternal grandmother's history of family history of heart disease 11/15/2021 Last Documented On 5 1:01PM ; [facility] Maternal grandmother's history of rheuma toid arthritis 11/15/2021 Last Documented On 5 1:01PM ; [facility] Maternal history of family history of ca ncer 11/15/2021 Last Documented On 5 1:01PM ; [facility], [facility] Maternal history of family history of he art disease 11/15/2021 Last Documented On 5 1:01PM ; [facility], [facility] Paternal grandfather's history of family history of heart disease 11/15/2021 Last Documented On 5 1:01PM ; [facility] Diabetes mellitus 12/08/2020 Last Documented On 5 1:01PM ; [facility] Review of Systems Includes: Review [...] Diagnosis NEW PROBLEM/EST PT Karlos Nunez PA-C [facility] 06/05/19 25 1:00PM 1:44PM Overweight Insurance Includes: Active Insurance Policies Plan Name Member ID Group # Subscriber Relationship Effect daksha Dates 1 - [facility]/ [employer] [id number] Mela Neves Self Clinical Notes Includes: Clinical Notes from this encounter * Progress note Date Encounter Last Documented by 06/05/2024 NEW PROBLEM/EST PT Last document ed on 06/05/2024; 3:40 PM, Karlos Nunez PA-C; [facility] Active Problems & Conditions - Joint [...] Tablet 30 days, 0 refills - Nystatin [id number] UNIT/ML Mouth/Throat Suspension 14 days, 0 refills [...]
--- OUTSIDE RECORDS SUMMARY | 2025-02-17 14:20 | XMS_ITS | Clinical Summary ---
Author Organization [facility] Address [address] [place] [address] Phone Care Team Providers Care Agility Instructor Name Role Phone IGNACIO HARTMAN Unavailable [phone] Nikunj HA, Joey Vieira Unavailable [phone] Reason for Visit and Chief Complaint The Chief Complaint is: Right thumb and hand pain Problems Includes: Problems addressed during this encounter and other active Problems Current Visit Onset Date Resolved Date Provider Conditio n Status Lower Back Pain 01/17/2023 Richard Palomo PA-C A ctive Last Documented On 3 2:28PM ; [facility] Lower Back Pain 10/23/2020 11/15/2021 Janell Vila PA-C Resolved Last Documented On 2 9:13AM ; [facility] Past Visits Onset Date Resolved Date Provider Condition Status Joint Pain Right Thumb 08/23/2023 Karlos de paz PA-C Active Last Documented On 4 10:36AM ; [facility] Joint Pain Hip Left 06/14/2022 Richard Manning Active Last Documented On 3 3:30PM ; [facility] Joint Pain Right Knee 03/25/2022 Janell de paz PA-C Active Last Documented On 2 12:58PM ; [facility] Plan of Treatment Instructions to patient Intervention and counseling on cessation of tobacco use Last Documented On 4 1:08PM ; [facility] Lose weight Last Documented On 4 1:08PM ; [facility] Assessments Includes: Assessments from this encounter Findings - Overweight - Last Documented On 11/29/2023 1:34PM ; [facility] Instructions Includes: Instructions from this encounter Instructions to patient Intervention and counseling on cessation of tobacco use Last Documented On 4 1:08PM ; [facility] Lose weight Last Documented On 4 1:08PM ; [facility] Medical Equipment - Implanted Devices Includes: Current Devices No Medical Equipment Recorded Medications Includes: Medications discussed during this encounter and other current Medications Current Medications (continue as prescribed) Naproxen 500 MG Oral Tablet 06/24/2023 Provider: IGNACIO HARTMAN Diagnosis: Last Documented On 4 10:41AM By Geni Johns ; [facility] HYDROcodone-Acetaminophen 5-325 MG Oral Tablet 024 Provider: Diagnosis: Last Documented On 4 10:41AM By Geni Johns ; [facility] Repatha SureClick 140 MG/ML Subcutaneous Solution Auto-injector 06/08/2023 Provider: Diagnosis: Last Documented On 4 10:41AM By Geni Jhons ; [facility] Pantoprazole Sodium 40 MG Or al Tablet Delayed Release 06/06/2023 Provider: IGNACIO HARTMAN Diagnosis: Last Documented On 4 10:41AM By Geni Johns ; [facility] Sertraline HCl 100 MG Oral Tablet 06/06/2023 Provide r: IGNACIO HARTMAN Diagnosis: Last Documented On 4 10:41AM By Geni Johns ; [facility] Fluconazole 100 MG Oral Tablet 06/06/2023 Provider: IGNACIO HARTMAN Diagnosis: Last Documented On 4 10:41AM By Geni Johns ; [facility] Ondansetron 4 MG Oral Tablet Disintegrating 06/06/2023 Provider: IGNACIO HARTMAN Diagnosis: Last Documented On 4 10:41AM By Geni Johns ; [facility] Albuterol Sulfate (2.5 MG/3M L) 0.083% Inhalation Nebulization solution 05/15/2023 Provider: IGNACIO HARTMAN Diagnosis: Last Documented On 4 10:41AM By Geni Johns ; [facility] Famotidine 20 MG Oral Tablet 05/12/2023 Provider: IGNACIO HARTMAN Diagnosis: Last Documented On 4 10:41AM By Geni Johns ; [facility] Nystatin 283354 UNIT/ML Mouth/Throat Suspension 2023 Provider: IGNACIO HARTMAN Diagnosis: Last Documented On 4 10:41AM By Geni Johns ; [facility] Rosuvastatin Calcium 10 MG Oral Tablet 02/23/2023 Pr ovider: Diagnosis: Last Documented On 4 10:41AM By Geni Johns ; [facility] Pregabalin 50 MG Oral Capsule 02/13/2023 Provider: IGNACIO HARTMAN Diagnosis: Last Documented On 4 10:41AM By Geni Johns ; [facility] Amitriptyline HCl 10 MG Oral Tablet 01/10/2023 Provi talat: IGNACIO HARTMAN Diagnosis: Last Documented On 3 11:02AM By Geni Johns ; [facility] Prasugrel HCl 10 MG Oral Tablet 01/03/2023 Provider: Diagnosis: Last Documented On 4 10:41AM By Geni Johns ; [facility] DULoxetine HCl 30 MG Oral Ca psule Delayed Release Particles 11/04/2022 Provider: IGNACIO HARTMAN Diagnosis: Last Documented On 4 10:41AM By Geni Johns ; [facility] Carvedilol 3.125 MG Oral Tablet 09/23/2022 Provider: Diagnosis: Last Documented On 4 10:41AM By Geni Johns ; [facility] Esomeprazole Magnesium 40 MG Oral Capsule Delayed Rele ase 06/24/2022 Provider: Diagnosis: Last Documented On 3 10:19AM By Selina Lucas ; [facility] tiZANidine HCl 2 MG Oral Tablet 06/24/2022 Provider: Diagnosis: Last Documented On 3 10:19AM By Selina Lucas ; [facility] Past Medications on file Meloxicam 15 MG Oral Tablet 06/30/2023 - 07/30/2023 Pr ovider: Richard Palomo PA-C Diagnosis: Take t tablet by mouth once a day Last Documented On 4 11:20AM By Geni Johns ; [facility] Medications Administered Includes: Administered [...] 06/24/2022 Last Documented On 4 1:08PM ; [facility] Tobacco non-user 03/25/2022 Last Documented On 4 1:08PM ; [facility] Exercising regularly 03/25/2022 Last Documented On 4 1:08PM ; [facility] No recent change in diet 03/25/2022 Last Documented On 4 1:08PM ; [facility] Not a smoker 03/25/2022 Last Documented On 4 1:08PM ; [facility] Not using alcohol 03/25/2022 Last Documented On 4 1:08PM ; [facility] Not using drugs 03/25/2022 Last Documented On 4 1:08PM ; [facility] Non-smoker 12/08/2021 Last Documented On 4 1:08PM ; [facility] Caffeine use 11/15/2021 Last Documented On 4 1:08PM ; [facility] Yes, current smoker. 11/15/2021 Last Documented On 4 1:08PM ; [facility] Never drank alcohol 11/15/2021 Last Documented On 4 1:08PM ; [facility] Never used drugs 11/15/2021 Last Documented On 4 1:08PM ; [facility] No recent change in diet 12/08/2020 Last Documented On 4 1:08PM ; [facility] Yes, current smoker. 12/08/2020 Last Documented On 4 1:08PM ; [facility] Smoking Status Unknown Procedures and Surgical History Includes: Procedures from this encounter Procedures Code Diagnosis Performing Provider Service L ocation Service Date intervention and counseling on cessation of tobacco use 4000F Last Documented On 4 1:08PM ; [facility] use of tobacco assessment performed 1000F Last Documented On 4 1:08PM ; [facility] review of medications documented 1160F Last Documented On 4 1:08PM ; [facility] an X-ray was performed [id number] Last Documented On 4 1:08PM ; [facility] brace Last Documented On 4 1:08PM ; [facility] Surgical History Last Updated History of History of Gallbladder 2021 Last Documented On 4 1:08PM ; [facility] History of shoulder arthroplasty 022 Last Documented On 4 1:08PM ; [facility] History of total knee arthroplasty 11/15 Last Documented On 4 1:08PM ; [facility] History of Past Surgical History: 2021 Last Documented On 4 1:08PM ; [facility] Medical History Includes: Medical History addressed during this encounter Description Last Updated No recent immunization for flu 2 Last Documented On 4 1:08PM ; [facility] No recent immunization for pneumococcal pneumonia 03/25/2022 Last Documented On 4 1:08PM ; [facility] History of arthritis 11/15/2021 Last Documented On 4 1:08PM ; [facility] History of asthma 11/15/2021 Last Documented On 4 1:08PM ; [facility] History of depression 11/15/2021 Last Documented On 4 1:08PM ; [facility] History of heart disease 11/15/2021 Last Documented On 4 1:08PM ; [facility] History of History of Blood Clots 2021 Last Documented On 4 1:08PM ; [facility] History of History of Heart Attack / Str giselle 11/15/2021 Last Documented On 4 1:08PM ; [facility] History of osteoporosis 11/15/2021 Last Documented On 4 1:08PM ; [facility] Arthritis 11/15/2021 Last Documented On 4 1:08PM ; [facility] Asthma 11/15/2021 Last Documented On 4 1:08PM ; [facility] Depression 11/15/2021 Last Documented On 4 1:08PM ; [facility] Heart disease 11/15/2021 Last Documented On 4 1:08PM ; [facility] Heartburn / Acid Reflux 11/15/2021 Last Documented On 4 1:08PM ; [facility] History of Blood Clots 11/15/2021 Last Documented On 4 1:08PM ; [facility] History of Gallbladder 11/15/2021 Last Documented On 4 1:08PM ; [facility] History of Heart Attack / Stroke 022 Last Documented On 4 1:08PM ; [facility] Osteoporosis 11/15/2021 Last Documented On 4 1:08PM ; [facility] Shoulder arthroplasty 11/15/2021 Last Documented On 4 1:08PM ; [facility] Total knee arthroplasty 11/15/2021 Last Documented On 4 1:08PM ; [facility] Family History Includes: Family History addressed during this encounter Description Last Updated Family history of cancer 11/15/2021 Last Documented On 4 1:08PM ; [facility] Family history of heart disease 11/16/19 22 Last Documented On 4 1:08PM ; [facility] Family history of rheumatoid arthritis 0 11/15/2021 Last Documented On 4 1:08PM ; [facility] Maternal grandfather's history of family history of heart disease 11/15/2021 Last Documented On 4 1:08PM ; [facility] Maternal grandmother's history of family history of heart disease 11/15/2021 Last Documented On 4 1:08PM ; [facility] Maternal grandmother's history of rheuma toid arthritis 11/15/2021 Last Documented On 4 1:08PM ; [facility] Maternal history of family history of ca ncer 11/15/2021 Last Documented On 4 1:08PM ; [facility] Maternal history of family history of he art disease 11/15/2021 Last Documented On 4 1:08PM ; [facility] Paternal grandfather's history of family history of heart disease 11/15/2021 Last Documented On 4 1:08PM ; [facility] Diabetes mellitus 12/08/2020 Last Documented On 4 1:08PM ; [facility] Review of Systems Includes: Review of [...] Up Karlos Nunez PA-C [facility] 4 1:00PM 1:44PM Overweight Insurance Includes: Active Insurance Policies Plan Name Member ID Group # Subscriber Relationship Effect [id number] Dates 1 - [facility] [id number] Mela Neves Self Clinical Notes Includes: Clinical Notes from this encounter * Progress note Date Encounter Last Documented by 11/29/2023 Follow Up Last documented on 11/29/2023; 1:34 PM, Karlos Mcneil; [facility] Active Problems & Conditions - Joint [...] Tablet 30 days, 0 refills - Nystatin [id number] UNIT/ML Mouth/Throat Suspension 14 days, 0 refills [...]
--- OUTSIDE RECORDS SUMMARY | 2025-02-17 14:21 | XMS_ITS | Clinical Summary ---
Author Organization [employer] ([place], [place], [place], [place]) Address [address] [place] [address] Care Team Providers Care Supervisor Hot Dip Plating Name Role Phone Monroe Lopez MD Unavailable Familia Perez APRN Unavailable [phone] Angeles Hartman APRN Primary Care Provider [phone] Allergies Active Allergy Reactions Criticality Noted Date [...] mg/mL PnIj Inject subcutaneous ly. 07/07/2023 Active HYDROcodone-keenan taminophen (NORCO 5-325) 5-325 mg per tablet [...] (EFFEXOR) 75 MG tablet Daily 01/04/2024 Active HYDROcodone-keenan taminophen (NORCO) 10-325 mg per tablet Take [...] Encounters Date Type Department Care Team Description 01/09/2025 Telephone [facility] Neurology Formerly [facility] [address] [place] [address] Danae Alexander CMA Results 12/31/2024 10:00 AM EDT Office Visit [facility] Neurology [facility] [address] [place] [address] Jewel Nunez MD Polyneuropathy (Primary Dx); Peripheral polyneuropathy from Last 3 Months Family History Medical [...] 0 07/11/2023 Family and Community Support Answer Vciente e Recorded Help with Day to Day Activities Not on file 08/02/2023 Feeling Lonely or Isolated Not on file 08/01 Educational Attainment Answer Date Regis rded Speak language other than Senegalese at home Not on file 08/02/2023 Want [...] Description 03/11/2025 1:00 PM EST Procedure Visit [facility] Neurology - [place] [id number] [place] [address] 03/11/2025 2:15 PM EST Office Visit [facility] Neurology - [facility] [address] [place] [address] Jewel Nunez MD [address] [facility] [address] [place] [address] Health Maintenance Due Date Last Done Comments [...] of 2) 09/19/2017 Medicare Initial AWV [id number] 05/08/2024 COVID-19 VACCINE (1 - season) 2025 Influenza Vaccine (#1) 2025 Tobacco Cessation Counseling and Screening (12+) 10/15/2025 10/15/2024 DTAP/TDAP/TD VACCINES (3 - Td or Tdap) 04/11/2029, 07/10/1996 Procedures Procedure Name Priority Date/Time Associated Diagnosis Comments ANGIOTENSIN CONVERTING ENZYME ([facility]) Routine 12/31/2024 11:15 AM EDT Peripheral polyneuropathy ANCA BY IFA (RDL) ([facility]) Routine 12/31/2024 11:15 AM EDT Peripheral polyneuropathy ANTI-HU, ANTI-RI, ANTI-YO IFA Routine 12/31/2024 11:15 AM EDT Peripheral polyneuropathy ANTINUCLEAR ANTIBODIES DIRECT Routine 12/31/2024 11:15 AM EDT Peripheral polyneuropathy COPPER, PLASMA AND RBC Routine 12/31/2024 11:15 AM EDT Peripheral polyneuropathy HGB A1C WITH EAG ESTIMA Routine 12/31/2024 11:15 AM EDT Peripheral polyneuropathy LYME DISEASE SEROLOGY W/REFLEX([facility]) Routine 12/31/2024 11:15 AM EDT Peripheral polyneuropathy METHYLMALONIC ACID Routine 12/31/2024 11 :15 AM EDT Peripheral polyneuropathy VITAMIN E Routine 12/31/2024 11:15 AM EDT Peripheral polyneuropathy VITAMIN B6, PLASMA Routine 12/31/2024 11 :15 AM EDT Peripheral polyneuropathy VITAMIN B12 AND FOLATE Routine 12/31/2024 11:15 AM EDT Peripheral polyneuropathy VITAMIN B1 (THIAMINE), WHOLE BLOOD, LC/MS/MS Routine 12/31/2024 11:15 AM EDT Peripheral polyneuropathy TSH W/REFLEX TO FT4 Routine 12/31/2024 1 1:15 AM EDT Peripheral polyneuropathy SJOGREN'S ANTIBODIES Routine 12/31/2024 11:15 AM EDT Peripheral polyneuropathy SEDIMENTATION RATE Routine 12/31/2024 11 :15 AM EDT Peripheral polyneuropathy RHEUMATOID FACTOR AB, REFLEX TO TITER Routine 12/31/2024 11:15 AM EDT Peripheral polyneuropathy PROTEIN ELECTROPHORESIS, SERUM WITH REFLEX TO IMMUNOTYPING Routine 12/31/2024 11:15 AM EDT Peripheral polyneuropathy from Last 3 Months Results * ANCA by IFA (RDL) (12/31/2024 11:15 AM EDT) ANCA by IFA (RDL) Negative Negative [facility] Blood 12/31/2024 11:1 5 AM EDT 12/31/2024 Narrative [facility] - 01/11/2025 3:07 PM EDT Performed at: 04 - [employer] [address] [place] [id number] Medical Dermatologist: Dragan Rodrigues MD, Phone: [phone] Jewel Nunez MD LAB BLOOD ORDERABLES Final Resul t Performing Organization Address [facility] Co de Phone Number [facility] * Lyme Disease Serology w/Reflex (12/31/2024 11:15 AM EDT) [facility] Lyme Total Antibody EIA Negative Negative [facility] Comment: Lyme antibodies not detected. Reflex testing [...] 3:07 PM EDT Performed at: 01 - [facility] [id number] Medical Dermatologist: Paddy Rivera PhD, Phone: [phone] Jewel Nunez MD LAB BLOOD ORDERABLES Final Resul t Performing Organization Address [facility] de Phone Number [facility] * Copper, Plasma and RBC (12/31/2024 11:15 AM EDT) Pathologist [facility] Copper, Pl([facility]) 1.25 0.65 - 1.92 ug/mL [facility] Copper, RBC([facility]) 0.70 0.50 - 1.00 ug/mL [facility] Comment: This test was developed and its performance characteristics determined by [facility]. It has not been cleared or approved by the Food and Drug Administration. 12/31/2024 11:1 5 AM EDT 12/31/2024 Narrative [facility] - 01/11/2025 3:07 PM EDT Performed at: 02 - [employer] [facility] [address] [place] [address] [id number] Medical Dermatologist: Josee Ingram [facility], Phone: [phone] Jewel Nunez MD LAB BLOOD ORDERABLES Final Resul t [facility] * Anti-Hu, Anti-Ri, Anti-Yo IFA (12/31/2024 11:15 AM EDT) Anti-Hu Ab([facility]) Negative Negative [facility] Anti-Ri Ab([facility]) Negative Negative [facility] Anti-Yo Ab([facility]) Negative Negative [facility] 12/31/2024 11:1 5 AM EDT 12/31/2024 Narrative [facility] - 01/11/2025 3:07 PM EDT Test(s) 423295-Xntd-Sv Ab; 805390-Mvvb-Sx Ab; 079278- PUBLIC TRANSIT BUS DRIVER Type-1 (Anti-Yo) Ab was developed and its performance characteristics determined by [facility]. It has not been cleared or approved by the Food and Drug Administration. Performed at: [address] [id number] Medical Dermatologist: Tyesha Lorenzo MD, Phone: [phone] Jewel Nunez MD LAB BLOOD ORDERABLES Final Resul t Performing Organization Address [facility] Co de Phone Number [facility] * Vitamin B1 (Thiamine), Whole Blood, LC/MS/MS (12/31/2024 11:15 AM EDT) Vit. B1, Whole Blood 107.3 66.5 - 200.0 nmol/L [facility] 12/31/2024 11:1 5 AM EDT 12/31/2024 Narrative [facility] - 01/11/2025 3:07 PM EDT Test(s) 500927-Jeq. B1, Whole Blood was developed and its performance characteristics determined by [facility]. It has not been cleared or approved by the Food and Drug Administration. Performed at: 03 - [address] [id number] Medical Dermatologist: Tyesha Lorenzo MD, Phone: [phone] us Jewel Nunez MD LAB BLOOD ORDERABLES Final Resul t Performing Organization Address City/[facility] Co de Phone Number [facility] * TSH W/REFLEX TO FT4 (12/31/2024 11:15 AM EDT) TSH 0.985 0.450 - 4.500 uIU/mL [facility] 12/31/2024 11:1 5 AM EDT 12/31/2024 Narrative [facility] - 01/11/2025 3:07 PM EDT Performed at: [facility] [id number] Medical Dermatologist: Paddy Rivera PhD, Phone: [phone] us Jewel Nunez MD LAB BLOOD ORDERABLES Final Resul t Performing Organization Address [facility] de Phone Number [facility] * (ABNORMAL) HGB A1C WITH EAG ESTIMA (12/31/2024 11:15 AM EDT) Pathologist [facility] Hemoglobin A1c 5.9(H) 4.8 - 5.6 % [facility] Comment: Prediabetes: 5.7 - 6.4 Diabetes: >6.4 Glycemic control for adults with diabetes: <7.0 Hemoglobin A1c 123 mg/dL [facility] 12/31/2024 11:1 5 AM EDT 12/31/2024 Narrative [facility] - 01/11/2025 3:07 PM EDT Performed at: - [address] [id number] Medical Dermatologist: Paddy Rivera PhD, Phone: [phone] us Jewel Nunez MD LAB BLOOD ORDERABLES Final Resul t Performing Organization Address [facility] de Phone Number [facility] * ANTINUCLEAR ANTIBODIES DIRECT (12/31/2024 11:15 AM EDT) Pathologist [facility] Antinuclear Antibodies, IFA Negative [facility] Comment: Negative <1:80 Borderline 1:80 Positive >1:80 ICAP nomenclature: AC-0 For more information about Hep-2 cell patterns use ANApatterns.org, the official website for the International Consensus on Antinuclear Antibody (PHILLIP) Patterns (ICAP). Blood VENOUS STRUCTURE / Unknown 12/31/2024 11:15 AM EDT 12/31/2024 Narrative [facility] - 01/11/2025 3:07 PM EDT Performed at: [facility] [address] [id number] Medical Dermatologist: Paddy Rivera PhD, Phone: [phone] us Jewel Nunez MD LAB BLOOD ORDERABLES Final Resul t Performing Organization Address [facility] de Phone Number [facility] * Vitamin B12 and Folate (12/31/2024 11:15 AM EDT) Vitamin B12 404 232 - 1,245 pg/mL [facility] Folate (Folic Acid), Serum 14.1 >3.0 ng/mL [facility] Comment: A serum folate concentration of less than 3.1 ng/mL is considered to represent clinical deficiency. Blood 12/31/2024 11:1 5 AM EDT 12/31/2024 Narrative [facility] - 01/11/2025 3:07 PM EDT Performed at: [facility] [address] [id number] Medical Dermatologist: Paddy Rivera PhD, Phone: [phone] us Jewel Nunez MD LAB BLOOD ORDERABLES Final Resul t Performing Organization Address City/[facility]/ZIP Co de Phone Number [facility] * Sjogren's antibodies (12/31/2024 11:15 AM EDT) Sjogren's Anti-SS-A <0.2 0.0 - 0.9 AI [facility] Sjogren's Anti-SS-B <0.2 0.0 - 0.9 AI [facility] Blood 12/31/2024 11:1 5 AM EDT 12/31/2024 Narrative [facility] - 01/11/2025 3:07 PM EDT Performed at: [address] [id number] Medical Dermatologist: Paddy Rivera PhD, Phone: [phone] Jewel Nunez MD LAB BLOOD ORDERABLES Final Resul t Performing Organization Address City/[facility] de Phone Number [facility] * Methylmalonic acid (12/31/2024 11:15 AM EDT) Methylmalonic Acid, Serum 189 0 - 378 nmol/L [facility] Blood 12/31/2024 11:1 5 AM EDT 12/31/2024 N[facility]ative [facility] - 01/11/2025 3:07 PM EDT Test(s) 493125-Dzuoirnftkkvj Acid, Serum was developed and its performance characteristics determined [facility]. It has not been cleared or approved by the Food and Drug Administration. Performed at: [address] [place] [id number] Medical Dermatologist: Tyesha Lorenzo MD, Phone: [phone] Jewel Nunez MD LAB BLOOD ORDERABLES Final Resul t Performing Organization Address [facility] de Phone Number [facility] * Rheumatoid factor Ab, reflex to titer (12/31/2024 11:15 AM EDT) RA Latex Turbid. <10.0 <14.0 IU/mL [facility] Blood 12/31/2024 11:1 5 AM EDT 12/31/2024 Narrative [facility] - 01/11/2025 3:07 PM EDT Performed at: [address] [id number] Medical Dermatologist: Paddy Rivera PhD, Phone: [phone] Jewel Nunez MD LAB BLOOD ORDERABLES Final Resul t Performing Organization Address [facility] de Phone Number [facility] * Sedimentation rate (12/31/2024 11:15 AM EDT) Pathologist [facility] Sedimentation Rate-Westergren 12 0 - 40 mm/hr [facility] Blood 12/31/2024 11:1 5 AM EDT 12/31/2024 Narrative [facility] - 01/11/2025 3:07 PM EDT Performed at: [facility] [place] [address] Medical Dermatologist: Paddy Rivera PhD, Phone: [phone] Jewel Nunez MD LAB BLOOD ORDERABLES Final Resul t Performing Organization Address [facility] Phone Number [facility] * Angiotensin Converting Enzyme (KEENAN) (12/31/2024 11:15 AM EDT) Pathologist [facility] KEENAN 30 14 - 82 U/L [facility] Blood 12/31/2024 11:1 5 AM EDT 12/31/2024 Narrative [facility] - 01/11/2025 3:07 PM EDT Performed at: [facility] [address] [id number] Medical Dermatologist: Paddy Rivera PhD, Phone: [phone] Jewel Nunez MD LAB BLOOD ORDERABLES Final Resul t Performing Organization Address [facility] de Phone Number [facility] * VITAMIN E (12/31/2024 11:15 AM EDT) Vitamin E(Alpha Tocopherol) 12.2 7.0 - 25.1 mg/L [facility] Vitamin E(Gamma Tocopherol) 1.2 0.5 - 5.5 mg/L [facility] Comment: Reference intervals for alpha and gamma-tocopherol determined from National Health and Nutrition Examination Survey, 5978-5628. Individuals with alpha-tocopherol levels less than 5.0 mg/L are considered vitamin E deficient. Blood 12/31/2024 11:1 5 AM EDT 12/31/2024 Narrative [facility] - 01/11/2025 3:07 PM EDT Test(s) 469339-Jjafoql E(Alpha Tocopherol); 906439- Vitamin E(Gamma Tocopherol) was developed and its performance characteristics determined by [facility]. It has not been cleared or approved by the Food and Drug Administration. Performed at: 03 - [address] [id number] Medical Dermatologist: Tyesha Lorenzo MD, Phone: [phone] Jewel Nunez MD LAB BLOOD ORDERABLES Final Resul t Performing Organization Address [facility] de Phone Number [facility] * Vitamin B6, Plasma (12/31/2024 11:15 AM EDT) Vitamin B6 7.3 3.4 - 65.2 ug/L [facility] Comment: Deficiency: <3.4 Marginal: 3.4 - 5.1 Adequate: >5.1 Blood 12/31/2024 11:1 5 AM EDT 12/31/2024 Narrative [facility] - 01/11/2025 3:07 PM EDT Test(s) 848195-Kyquztt B6 was developed and its performance characteristics determined by [facility]. It has not been cleared or approved by the Food and Drug Administration. Performed at: [address] [id number] Medical Dermatologist: Tyesha Lorenzo MD, Phone: [phone] Jewel Nunez MD LAB BLOOD ORDERABLES Final Resul t Performing Organization Address [facility] Co de Phone Number [facility] * PROTEIN ELECTROPHORESIS, SERUM WITH REFLEX TO IMMUNOTYPING (12/31/2024 11:15 AM EDT) Protein, Total, Serum 6.9 6.0 - 8.5 g/dL [facility] Albumin 3.8 2.9 - 4.4 g/dL [facility] Vrjhf-0-Fntvymgf 0.3 0.0 - 0.4 g/dL [facility] Spcsx-5-Ujyyclel 1.0 0.4 - 1.0 g/dL [facility] Beta Globulin 1.1 0.7 - 1.3 g/dL [facility] Gamma Globulin 0.8 0.4 - 1.8 g/dL [facility] M-Zach Not Observed Not Observed g/dL [facility] Globulin, Total 3.1 2.2 - 3.9 g/dL [facility] A/G Ratio 1.2 0.7 - 1.7 [facility] Please note: Comment [facility] Comment: Protein electrophoresis scan will follow via computer, mail, or energy audit advisor delivery. P E Interpretation, S Comment [facility] Comment: The SPE pattern appears unremarkable. Evidence of monoclonal protein is not apparent. Blood 12/31/2024 11:1 5 AM EDT 12/31/2024 Narrative [facility] - 01/11/2025 3:07 PM EDT Performed at: 01 - [facility] [id number] Medical Dermatologist: Paddy Rivera PhD, Phone: [phone] us Jewel Nunez MD LAB BLOOD ORDERABLES Final Resul t [facility] from Last 3 Months Insurance AARP MEDICARE COMPLETE MAP Care Teams Supervisor Hot Dip Plating Relationship Specialty Start Date End Date Angeles Hartman APRN [address] [address] PCP - General Nurse Practitioner 07/19/24 Monroe Lopez MD [address] [place] [address] Sports Medicine 02/14/24 Familia Perez APRN [address] [place] [address] Orthopedic Surgery 03/25/24
--- OUTSIDE RECORDS SUMMARY | 2025-02-17 14:21 | XMS_ITS | Referral Summary ---
Author Organization [employer] ([place], [place], [place], [place]) Address [address] [place] [address] Care Team Providers Care Toe Lining Closer Name Role Phone Monroe Lopez MD Unavailable Familia Perez APRN Unavailable [phone] Angeles Hartman APRN Primary Care Provider Encounters Date Type Department Care Team Description 01/09/2025 Telephone [facility] - [facility] [address] [place] [address] Danae Alexander CMA Results 12/31/2024 10:00 AM EDT Office Visit [facility] [address] [place] [address] Jewel Nunez MD Polyneuropathy (Primary Dx); Peripheral polyneuropathy from Last 3 Months Allergies Active Allergy [...] Date Regis rded Speak language other than Northern Irish at home Not on file 08/02/2023 [...] Description 03/11/2025 1:00 PM EST Procedure Visit [facility] [address] [place] [address] 03/11/2025 2:15 PM EST Office Visit [facility] [address] [place] [address] Jewel Nunez MD [address] [place] [address] [address] [place] [address] [phone] (work) Procedures Procedure Name Priority Date/Time Associated Diagnosis [...] - 01/11/2025 3:07 PM EDT Performed at: [facility] [employer] [address] [place] [address] [id number] Mainframe Programmer Analyst: Dragan Rodrigues MD, Phone: [phone] Jewel Nunez MD LAB BLOOD ORDERABLES Final Resul t [facility] * Lyme Disease Serology w/Reflex (12/31/2024 11:15 AM EDT) Lyme Total Antibody EIA Negative Negative [facility] Comment: Lyme antibodies not detected. Reflex testing [...] - 01/11/2025 3:07 PM EDT Performed at: [address] [place] [address] [id number] Mainframe Programmer Analyst: Paddy Rivera PhD, Phone: [phone] Jewel Nunez MD LAB BLOOD ORDERABLES Final Resul t Performing Organization Address [facility] Co de Phone Number [facility] * Copper, [...] 3:07 PM EDT Performed at: 02 - [employer] [address] [place] [address] [id number] Mainframe Programmer Analyst: Josee Ingram [facility], Phone: [phone] Jewel Nunez MD LAB BLOOD ORDERABLES Final Resul t Performing Organization Address [facility] Co de Phone Number [facility] * Anti-Hu, Anti-Ri, Anti-Yo IFA (12/31/2024 11:15 AM EDT) Anti-Hu Ab([facility]) Negative Negative [facility] Anti-Ri Ab([facility]) Negative Negative [facility] Anti-Yo Ab([facility]) Negative Negative [facility] 12/31/2024 11:1 5 AM EDT 12/31/2024 Narrative [facility] - 01/11/2025 3:07 PM EDT Test(s) 803778-Tdso-Yp Ab; 928939-Yzzn-Tw Ab; 299991- PACKAGE CHECKER Type-1 (Anti-Yo) Ab was developed and its performance characteristics determined by [facility]. It has not been cleared or approved by the Food and Drug Administration. Performed at: 03 - [facility] [id number] Mainframe Programmer Analyst: Tyesha Lorenzo MD, Phone: [phone] us Jewel Nunez MD LAB BLOOD ORDERABLES Final Resul t Performing Organization Address [facility] de Phone Number [facility] * Vitamin B1 (Thiamine), Whole Blood, LC/MS/MS (12/31/2024 11:15 AM EDT) Vit. B1, Whole Blood 107.3 66.5 - 200.0 nmol/L [facility] 12/31/2024 11:1 5 AM EDT 12/31/2024 Narrative [facility] - 01/11/2025 3:07 PM EDT Test(s) 410007-Dlv. B1, Whole Blood was developed and its performance characteristics determined by [facility]. It has not been cleared or approved by the Food and Drug Administration. Performed at: 03 - [address] [id number] Mainframe Programmer Analyst: Tyesha Lorenzo MD, Phone: [phone] us Jewel Nunez MD LAB BLOOD ORDERABLES Final Resul t Performing Organization Address [facility] de Phone Number [facility] * TSH W/REFLEX TO FT4 (12/31/2024 11:15 AM EDT) TSH 0.985 0.450 - 4.500 uIU/mL [facility] 12/31/2024 11:1 5 AM EDT 12/31/2024 Narrative [facility] - 01/11/2025 3:07 PM EDT Performed at: - [address] [id number] Mainframe Programmer Analyst: Paddy Rivera PhD, Phone: [phone] us Jewel Nunez MD LAB BLOOD ORDERABLES Final Resul t Performing Organization Address City/[facility]/ZIP Co de Phone Number [facility] * (ABNORMAL) HGB A1C WITH EAG ESTIMA (12/31/2024 11:15 AM EDT) Hemoglobin A1c 5.9(H) 4.8 - 5.6 % [facility] Comment: Prediabetes: 5.7 - 6.4 Diabetes: >6.4 Glycemic control for adults with diabetes: <7.0 Hemoglobin A1c 123 mg/dL [facility] 12/31/2024 11:1 5 AM EDT 12/31/2024 Narrative [facility] - 01/11/2025 3:07 PM EDT Performed at: - [facility] [id number] Mainframe Programmer Analyst: Paddy Rivera PhD, Phone: [phone] us Jewel Nunez MD LAB BLOOD ORDERABLES Final Resul t Performing Organization Address [facility] de Phone Number [facility] * ANTINUCLEAR ANTIBODIES DIRECT (12/31/2024 11:15 AM EDT) Pathologist [facility] Antinuclear Antibodies, IFA Negative [facility] Comment: Negative <1:80 Borderline 1:80 Positive >1:80 ICAP nomenclature: AC-0 For more information about Hep-2 cell patterns use ANApatterns.org, the official website for the International Consensus on Antinuclear Antibody (PHILLIP) Patterns (ICAP). Blood VENOUS STRUCTURE / Unknown 12/31/2024 11:15 AM EDT 12/31/2024 Narrative [facility] - 01/11/2025 3:07 PM EDT Performed at: [facility] [id number] Mainframe Programmer Analyst: Paddy Rivera PhD, Phone: [phone] us Jewel Nunez MD LAB BLOOD ORDERABLES Final Resul t Performing Organization Address [facility] Co de Phone Number [facility] * Vitamin B12 and Folate (12/31/2024 11:15 AM EDT) Pathologist [facility] Vitamin B12 404 232 - 1,245 pg/mL [facility] Folate (Folic Acid), Serum 14.1 >3.0 ng/mL [facility] Comment: A serum folate concentration of less than 3.1 ng/mL is considered to represent clinical deficiency. Blood 12/31/2024 11:1 5 AM EDT 12/31/2024 Narrative [facility] - 01/11/2025 3:07 PM EDT Performed at: [address] [place] [address] [id number] Mainframe Programmer Analyst: Paddy Rivera PhD, Phone: [phone] Jewel Nunez MD LAB BLOOD ORDERABLES Final Resul t Performing Organization Address [facility] de Phone Number [facility] * Sjogren's antibodies (12/31/2024 11:15 AM EDT) Sjogren's Anti-SS-A <0.2 0.0 - 0.9 AI [facility] Sjogren's Anti-SS-B <0.2 0.0 - 0.9 AI [facility] Blood 12/31/2024 11:1 5 AM EDT 12/31/2024 Narrative [facility] - 01/11/2025 3:07 PM EDT Performed at: [address] [place] [address] [id number] Mainframe Programmer Analyst: Paddy Rivera PhD, Phone: [phone] us Jewel Nunez MD LAB BLOOD ORDERABLES Final Resul t Performing Organization Address [facility] de Phone Number [facility] * Methylmalonic acid (12/31/2024 11:15 AM EDT) Methylmalonic Acid, Serum 189 0 - 378 nmol/L [facility] Blood 12/31/2024 11:1 5 AM EDT 12/31/2024 Narrative [facility] - 01/11/2025 3:07 PM EDT Test(s) 434936-Lscsgyzbrhbla Acid, Serum was developed and its performance characteristics determined by [facility]. It has not been cleared or approved by the Food and Drug Administration. Performed at: [facility] [id number] Mainframe Programmer Analyst: Tyesha Lorenzo MD, Phone: [phone] us Jewel Nunez MD LAB BLOOD ORDERABLES Final Resul t Performing Organization Address [facility]/ZIP Co de Phone Number [facility] * Rheumatoid factor Ab, reflex to titer (12/31/2024 11:15 AM EDT) RA Latex Turbid. <10.0 <14.0 IU/mL [facility] Blood 12/31/2024 11:1 5 AM EDT 12/31/2024 Narrative [facility] - 01/11/2025 3:07 PM EDT Performed at: [address] [id number] Mainframe Programmer Analyst: Paddy Rivera PhD, Phone: [phone] us Jewel Nunez MD LAB BLOOD ORDERABLES Final Resul t Performing Organization Address [facility] de Phone Number [facility] * Sedimentation rate (12/31/2024 11:15 AM EDT) Pathologist [facility] Sedimentation Rate-Westergren 12 0 - 40 mm/hr [facility] Blood 12/31/2024 11:1 5 AM EDT 12/31/2024 Narrative [facility] - 01/11/2025 3:07 PM EDT Performed at: [address] [id number] Mainframe Programmer Analyst: Paddy Rivera PhD, Phone: [phone] us Jewel Nunez MD LAB BLOOD ORDERABLES Final Resul t Performing Organization Address [facility] Co de Phone Number [facility] * Angiotensin Converting Enzyme (KEENAN) (12/31/2024 11:15 AM EDT) KEENAN 30 14 - 82 U/L [facility] Blood 12/31/2024 11:1 5 AM EDT 12/31/2024 Narrative [facility] - 01/11/2025 3:07 PM EDT Performed at: - [facility] [id number] Mainframe Programmer Analyst: Paddy Rivera PhD, Phone: [phone] Jewel Nunez MD LAB BLOOD ORDERABLES Final Resul t Performing Organization Address [facility] Co de Phone Number [facility] * VITAMIN E (12/31/2024 11:15 AM EDT) Vitamin E(Alpha Tocopherol) 12.2 7.0 - 25.1 mg/L [facility] Vitamin E(Gamma Tocopherol) 1.2 0.5 - 5.5 mg/L [facility] Comment: Reference intervals for alpha and gamma-tocopherol determined from National Health and Nutrition Examination Survey, 5498-6378. Individuals with alpha-tocopherol levels less than 5.0 mg/L are considered vitamin E deficient. Blood 12/31/2024 11:1 5 AM EDT 12/31/2024 Narrative [facility] - 01/11/2025 3:07 PM EDT Test(s) 578491-Mciftou E(Alpha Tocopherol); 745481- Vitamin E(Gamma Tocopherol) was developed and its performance characteristics determined by [facility]. It has not been cleared or approved by the Food and Drug Administration. Performed at: - [address] [id number] Mainframe Programmer Analyst: Tyesha Lorenzo MD, Phone: [phone] Jewel Nunez MD LAB BLOOD ORDERABLES Final Resul t [facility] * Vitamin B6, Plasma (12/31/2024 11:15 AM EDT) Vitamin B6 7.3 3.4 - 65.2 ug/L [facility] Comment: Deficiency: <3.4 Marginal: 3.4 - 5.1 Adequate: >5.1 Blood 12/31/2024 11:1 5 AM EDT 12/31/2024 Narrative [facility] - 01/11/2025 3:07 PM EDT Test(s) 237706-Uzwsoae B6 was developed and its performance characteristics determined by [facility]. It has not been cleared or approved by the Food and Drug Administration. Performed at: 03 - [address] [id number] Mainframe Programmer Analyst: Tyesha Lorenzo MD, Phone: [phone] Jewel Nunez MD LAB BLOOD ORDERABLES Final Resul t [facility] * PROTEIN ELECTROPHORESIS, SERUM WITH REFLEX TO IMMUNOTYPING (12/31/2024 11:15 AM EDT) Protein, Total, Serum 6.9 6.0 - 8.5 g/dL [facility] Albumin 3.8 2.9 - 4.4 g/dL [facility] Kstqs-2-Hyiguhme 0.3 0.0 - 0.4 g/dL [facility] Swikz-6-Tdwnmzgu 1.0 0.4 - 1.0 g/dL [facility] Beta Globulin 1.1 0.7 - 1.3 g/dL [facility] Gamma Globulin 0.8 0.4 - 1.8 g/dL [facility] M-Zach Not Observed Not Observed g/dL [facility] Globulin, Total 3.1 2.2 - 3.9 g/dL [facility] A/G Ratio 1.2 0.7 - 1.7 [facility] Please note: Comment [facility] Comment: Protein electrophoresis scan will follow via computer, mail, or batch or continuous still operator delivery. P E Interpretation, S Comment [facility] Comment: The SPE pattern appears unremarkable. Evidence of monoclonal protein is not apparent. Blood 12/31/2024 11:1 5 AM EDT 12/31/2024 Narrative [facility] - 01/11/2025 3:07 PM EDT Performed at: 01 - [address] [id number] Mainframe Programmer Analyst: Paddy Rivera PhD, Phone: [phone] Jewel Nunez MD LAB BLOOD ORDERABLES Final Resul t [facility] from Last 3 Months Insurance [employer] MEDICARE COMPLETE MAP Care Teams Toe Lining Closer Relationship Specialty Start Date End Date Angeles Hartman APRN [address] [address] PCP - General Nurse Practitioner 07/19/24 Monroe Lopez MD [address] [place] [address] Sports Medicine 02/14/24 Familia Perez, VIRY [address] [place] [address] Orthopedic Surgery 03/25/24
--- OUTSIDE RECORDS SUMMARY | 2025-02-17 14:21 | XMS_ITS ---
Care Plan - [facility], [facility] Created on: February 17, 2025 Jimena Nevesline : 1965 Sex: Female Author Organization [facility] , [facility] Address [address] [facility] [place] [address] Phone Care Team Providers Care Grocery Supervisor Name Role Phone PEOPLESDILIP RUANOE Unavailable [phone] Nikunj HA, Joey Vieira Unavailable [phone]
--- OUTSIDE RECORDS SUMMARY | 2025-02-17 14:21 | XMS_ITS | Clinical Summary ---
Author Organization [facility] , [facility] Address [address] [place] [address] Phone Care Team Providers Care Spool Salvager Name Role Phone IGNACIO HARTMAN Unavailable [phone] Nikunj HA, Joey Vieira Unavailable [phone] Reason for Visit and Chief Complaint The Chief Complaint is: Right thumb and hand pain Problems Includes: Problems addressed during this encounter and other active Problems Current Visit Onset Date Resolved Date Provider Conditio n Status Lower Back Pain 01/17/2023 Richard Palomo PA-C A ctive Last Documented On 3 2:28PM ; [facility], [facility] Lower Back Pain 10/23/2020 11/15/2021 Janell Vila PA-C Resolved Last Documented On 2 9:13AM ; [facility], [facility] Past Visits Onset Date Resolved Date Provider Condition Status Joint Pain Right Thumb 08/23/2023 Karlos de paz PA-C Active Last Documented On 4 10:36AM ; [facility], [facility] Joint Pain Hip Left 06/14/2022 Richard Manning Active Last Documented On 3 3:30PM ; [facility], [facility] Joint Pain Right Knee 03/25/2022 Janell de paz PA-C Active Last Documented On 2 12:58PM ; [facility], [facility] Plan of Treatment Instructions to patient Intervention and counseling on cessation of tobacco use Last Documented On 4 1:05PM ; [facility], [facility] Lose weight Last Documented On 4 1:05PM ; [facility], [facility] Assessments Includes: Assessments from this encounter Findings - Overweight - Last Documented On 03/06/2024 4:06PM ; [facility] 58-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 [...] - Last Documented On 03/06/2024 4:06PM ; [facility], [facility] Instructions Includes: Instructions from this encounter Instructions to patient Intervention and counseling on cessation of tobacco use Last Documented On 1:05PM ; [facility] Lose weight Last Documented On 1:05PM ; [facility] Medical Equipment - Implanted Devices Includes: Current Devices No Medical Equipment Recorded Medications Includes: Medications discussed during this encounter and other current Medications Current Medications (continue as prescribed) Naproxen 500 MG Oral Tablet 06/24/2023 Provider: IGNACIO HARTMAN Diagnosis: Last Documented On 4 10:41AM By Geni Johns ; [facility], [facility] HYDROcodone-Acetaminophen 5-325 MG Oral Tablet 024 Provider: Diagnosis: Last Documented On 4 10:41AM By Geni Johns ; [facility], [facility] Repatha SureClick 140 MG/ML Subcutaneous Solution Auto-injector 06/08/2023 Provider: Diagnosis: Last Documented On 4 10:41AM By Geni Johns ; [facility], [facility] Pantoprazole Sodium 40 MG Or al Tablet Delayed Release 06/06/2023 Provider: IGNACIO HARTMAN Diagnosis: Last Documented On 4 10:41AM By Geni Johns ; [facility], [facility] Sertraline HCl 100 MG Oral Tablet 06/06/2023 Provide r: IGNACIO HARTMAN Diagnosis: Last Documented On 4 10:41AM By Geni Johns ; [facility] Fluconazole 100 MG Oral Tablet 06/06/2023 Provider: IGNACIO HARTMAN Diagnosis: Last Documented On 4 10:41AM By Geni Johns ; [facility], [facility] Ondansetron 4 MG Oral Tablet Disintegrating 06/06/2023 Provider: IGNACIO HARTMAN Diagnosis: Last Documented On 4 10:41AM By Geni Johns ; [facility] Albuterol Sulfate (2.5 MG/3M L) 0.083% Inhalation Nebulization solution 05/15/2023 Provider: IGNACIO HARTMAN Diagnosis: Last Documented On 4 10:41AM By Geni Johns ; [facility], [facility] Famotidine 20 MG Oral Tablet 05/12/2023 Provider: IGNACIO HARTMAN Diagnosis: Last Documented On 4 10:41AM By Geni Johns ; [facility], [facility] Nystatin 486365 UNIT/ML Mouth/Throat Suspension 2023 Provider: IGNACIO HARTMAN Diagnosis: Last Documented On 4 10:41AM By Geni Johns ; [facility], [facility] Rosuvastatin Calcium 10 MG Oral Tablet 02/23/2023 Pr ovider: Diagnosis: Last Documented On 4 10:41AM By Geni Johns ; [facility], [facility] Pregabalin 50 MG Oral Capsule 02/13/2023 Provider: IGNACIO HARTMAN Diagnosis: Last Documented On 4 10:41AM By Geni Johns ; [facility], [facility] Amitriptyline HCl 10 MG Oral Tablet 01/10/2023 Provi talat: IGNACIO HARTMAN Diagnosis: Last Documented On 3 11:02AM By Geni Johns ; [facility] Prasugrel HCl 10 MG Oral Tablet 01/03/2023 Provider: Diagnosis: Last Documented On 4 10:41AM By Geni Johns ; [facility], [facility] DULoxetine HCl 30 MG Oral Ca psule Delayed Release Particles 11/04/2022 Provider: IGNACIO HARTMAN Diagnosis: Last Documented On 4 10:41AM By Geni Johns ; [facility], [facility] Carvedilol 3.125 MG Oral Tablet 09/23/2022 Provider: Diagnosis: Last Documented On 4 10:41AM By Geni Johns ; [facility], [facility] Esomeprazole Magnesium 40 MG Oral Capsule Delayed Rele ase 06/24/2022 Provider: Diagnosis: Last Documented On 3 10:19AM By Selina Lucas ; [facility], [facility] tiZANidine HCl 2 MG Oral Tablet 06/24/2022 Provider: Diagnosis: Last Documented On 3 10:19AM By Selina Lucas ; [facility], [facility] Past Medications on file Meloxicam 15 MG Oral Tablet 06/30/2023 - 07/30/2023 Pr ovider: Richard Palomo PA-C Diagnosis: Take t tablet by mouth once a day Last Documented On 4 11:20AM By Geni Johns ; [facility], [facility] Medications Administered Includes: Administered Medications from this encounter No Administered Medications Recorded Vital Signs Includes: Vital Signs from this encounter Vital Name 03/06/2024 01:06P Height (in) 67 Weight (lb) 257 Body Mass Index 40.3 Body Surface Area 2.2 Note: KL Last Documented: On 03/06/2024 1:06PM ; [facility], [facility] Results Includes: Results discussed during this [...] 06/24/2022 Last Documented On 4 1:05PM ; [facility] Tobacco non-user 03/25/2022 Last Documented On 4 1:05PM ; [facility] Exercising regularly 03/25/2022 Last Documented [...] On 4 1:05PM ; [facility] Smoking Status Unknown Procedures and Surgical History Includes: Procedures from this encounter Procedures Code Diagnosis Performing Provider Service L ocation Service Date intervention and counseling on cessation of tobacco use 4000F Last Documented On 4 1:05PM ; [facility], [facility] use of tobacco assessment performed 1000F Last Documented On 4 1:05PM ; [facility], [facility] review of medications documented 1160F Last Documented On 4 1:05PM ; [facility], [facility] an X-ray was performed 15360 Last Documented On 4 1:05PM ; [facility], [facility] brace Last Documented On 4 1:05PM ; [facility], [facility] Surgical History Last Updated History of History of Gallbladder 2021 Last Documented On 4 1:05PM ; [facility], [facility] History of shoulder arthroplasty 022 Last Documented On 4 1:05PM ; [facility], [facility] History of total knee arthroplasty 11/15 Last Documented On 4 1:05PM ; [facility], [facility] History of Past Surgical History: 2021 Last Documented On 4 1:05PM ; [facility], [facility] Medical History Includes: Medical History addressed during this encounter Description Last Updated No recent immunization for flu 2 Last Documented On 4 1:05PM ; [facility], [facility] No recent immunization for pneumococcal pneumonia 03/25/2022 Last Documented On 4 1:05PM ; [facility], [facility] History of arthritis 11/15/2021 Last Documented On 4 1:05PM ; [facility], [facility] History of asthma 11/15/2021 Last Documented On 4 1:05PM ; [facility], [facility] History of depression 11/15/2021 Last Documented On 4 1:05PM ; [facility], [facility] History of heart disease 11/15/2021 Last Documented On 4 1:05PM ; [facility], [facility] History of History of Blood Clots 2021 Last Documented On 4 1:05PM ; [facility], [facility] History of History of Heart Attack / Str giselle 11/15/2021 Last Documented On 4 1:05PM ; [facility] History of osteoporosis 11/15/2021 Last Documented On 4 1:05PM ; [facility] Arthritis 11/15/2021 Last Documented On 4 1:05PM ; [facility] Asthma 11/15/2021 Last Documented On 4 1:05PM ; [facility] Depression 11/15/2021 Last Documented On 4 1:05PM ; [facility] Heart disease 11/15/2021 Last Documented On 4 1:05PM ; [facility] Heartburn / Acid Reflux 11/15/2021 Last Documented On 4 1:05PM ; [facility] History of Blood Clots 11/15/2021 Last Documented On 4 1:05PM ; [facility] History of Gallbladder 11/15/2021 Last Documented On 4 1:05PM ; [facility] History of Heart Attack / Stroke 022 Last Documented On 4 1:05PM ; [facility] Osteoporosis 11/15/2021 Last Documented On 4 1:05PM ; [facility] Shoulder arthroplasty 11/15/2021 Last Documented On 4 1:05PM ; [facility] Total knee arthroplasty 11/15/2021 Last Documented On 4 1:05PM ; [facility] Family History Includes: Family History addressed during this encounter Description Last Updated Family history of cancer 11/15/2021 Last Documented On 4 1:05PM ; [facility] Family history of heart disease 11/16/19 22 Last Documented On 4 1:05PM ; [facility] Family history of rheumatoid arthritis 0 11/15/2021 Last Documented On 4 1:05PM ; [facility] Maternal grandfather's history of family history of heart disease 11/15/2021 Last Documented On 4 1:05PM ; [facility] Maternal grandmother's history of family history of heart disease 11/15/2021 Last Documented On 4 1:05PM ; [facility] Maternal grandmother's history of rheuma toid arthritis 11/15/2021 Last Documented On 4 1:05PM ; [facility] Maternal history of family history of ca ncer 11/15/2021 Last Documented On 4 1:05PM ; [facility], [facility] Maternal history of family history of he art disease 11/15/2021 Last Documented On 4 1:05PM ; [facility], [facility] Paternal grandfather's history of family history of heart disease 11/15/2021 Last Documented On 4 1:05PM ; [facility], [facility] Diabetes mellitus 12/08/2020 Last Documented On 4 1:05PM ; [facility], [facility] Review of Systems Includes: Review of [...] Time Diagnosis Follow Up Karlos Nunez PA-C [facility] 4 12:58PM 1:18PM Overweight Insurance Includes: Active Insurance Policies Plan Name Member ID Group # Subscriber Relationship Effect daksha Dates 1 - [facility]/ JENNIFER [id number] Mela Neves Self Clinical Notes Includes: Clinical Notes from this encounter * Progress note Date Encounter Last Documented by 03/06/2024 Follow Up Last documented on 03/06/2024; 4:06 PM, Karlos Mcneil; [facility], [facility] Active Problems & Conditions - Joint [...] Tablet 30 days, 0 refills - Nystatin 485303 UNIT/ML Mouth/Throat Suspension 14 days, 0 refills [...]
--- OUTSIDE RECORDS SUMMARY | 2025-02-17 14:22 | XMS_ITS | Clinical Summary ---
Author Organization [facility] , [facility] Address [address] [place] [address] Phone Care Team Providers Care Hearing Therapy Director Name Role Phone SHELTON IGNACIO Unavailable [phone] Nikunj HA, Joey Vieira Unavailable [phone] Reason for Visit and Chief Complaint BRACE FITTING Problems Includes: Problems addressed during this encounter and other active Problems All Visits Onset Date Resolved Date Provider Condition S tatus Joint Pain Right Thumb 08/23/2023 Karlos de paz PA-C Active Last Documented On 4 10:36AM ; [facility] Lower Back Pain 01/17/2023 Richard Palomo PA-C A ctive Last Documented On 3 2:28PM ; [facility] Joint Pain Hip Left 06/14/2022 Richard Manning Active Last Documented On 3 3:30PM ; [facility] Joint Pain Right Knee 03/25/2022 Janell VILLEGASC Active Last Documented On 2 12:58PM ; [facility], [facility] Plan of Treatment No Plan of Treatment [...] On 4 10:41AM By Geni Johns ; [facility], [facility] HYDROcodone-Acetaminophen 5-325 MG Oral Tablet 024 Provider: Diagnosis: Last Documented On 4 10:41AM By Geni Johns ; [facility], [facility] Repatha SureClick 140 MG/ML Subcutaneous Solution Auto-injector 06/08/2023 Provider: Diagnosis: Last Documented On 4 10:41AM By Geni Johns ; [facility] Pantoprazole Sodium 40 MG Or al Tablet Delayed Release 06/06/2023 Provider: IGNACIO PEOPLES Diagnosis: Last Documented On 4 10:41AM By Geni Johns ; [facility], [facility] Sertraline HCl 100 MG Oral Tablet 06/06/2023 Provide r: IGNACIO PEOPLES Diagnosis: Last Documented On 4 10:41AM By Geni Johns ; [facility], [facility] Fluconazole 100 MG Oral Tablet 06/06/2023 Provider: IGNACIO PEOPLES Diagnosis: Last Documented On 4 10:41AM By Geni Johns ; [facility], [facility] Ondansetron 4 MG Oral Tablet Disintegrating 06/06/2023 Provider: IGNACIO EPOPLES Diagnosis: Last Documented On 4 10:41AM By Geni Johns ; [facility], [facility] Albuterol Sulfate (2.5 MG/3M L) 0.083% Inhalation Nebulization solution 05/15/2023 Provider: IGNACIO PEOPLES Diagnosis: Last Documented On 4 10:41AM By Geni Johns ; [facility] Famotidine 20 MG Oral Tablet 05/12/2023 Provider: IGNACIO PEOPLES Diagnosis: Last Documented On 4 10:41AM By Geni Johns ; [facility] Nystatin 920894 UNIT/ML Mouth/Throat Suspension 2023 Provider: IGNACIO PEOPLES Diagnosis: Last Documented On 4 10:41AM By Geni Johns ; [facility], [facility] Rosuvastatin Calcium 10 MG Oral Tablet 02/23/2023 Pr ovider: Diagnosis: Last Documented On 4 10:41AM By Geni Johns ; [facility] Pregabalin 50 MG Oral Capsule 02/13/2023 Provider: IGNACIO PEOPLES Diagnosis: Last Documented On 4 10:41AM By Geni Johns ; [facility] Amitriptyline HCl 10 MG Oral Tablet 01/10/2023 Provi talat: IGNACIO PEOPLES Diagnosis: Last Documented On 3 11:02AM By Geni Johns ; [facility] Prasugrel HCl 10 MG Oral Tablet 01/03/2023 Provider: Diagnosis: Last Documented On 4 10:41AM By Geni Johns ; [facility], [facility] DULoxetine HCl 30 MG Oral Ca psule Delayed Release Particles 11/04/2022 Provider: IGNACIO PEOPLES Diagnosis: Last Documented On 4 10:41AM By Geni Johns ; [facility], [facility] Carvedilol 3.125 MG Oral Tablet 09/23/2022 Provider: Diagnosis: Last Documented On 4 10:41AM By Geni Johns ; [facility], [facility] Esomeprazole Magnesium 40 MG Oral Capsule Delayed Rele ase 06/24/2022 Provider: Diagnosis: Last Documented On 3 10:19AM By Selina Lucas ; [facility], [facility] tiZANidine HCl 2 MG Oral Tablet 06/24/2022 Provider: Diagnosis: Last Documented On 3 10:19AM By Selina Lucas ; [facility], [facility] Medications Administered Includes: Administered Medications [...] hand Nikolai Fagan MD [facility] 06/05/2024 Last Documented On 5 12:33PM ; [facility] Medical History Includes: Medical History addressed [...] BRACE FITTING Karlos Nunez PA-C [facility] 06/05/2024 1:55PM 11:59PM Insurance Includes: Active Insurance Policies Plan Name Member ID Group # Subscriber Relationship Effect daksha Dates 1 - [facility] [id number] Mela Enriquez Clinical Notes Includes: Clinical Notes from this encounter No Clinical Notes Recorded
--- NOTE | 2025-02-17 14:30 | MR_ITS ---
FINAL REPORT CLINICAL HISTORY: left lateral hip pain, failed pain management left leg pain, hurts when walking, x1 yr FINDINGS: Multiplanar and multisequence imaging of the left hip were obtained without contrast. Bone marrow signal intensity is preserved. There is no acute fracture, contusion or pathologic marrow replacement. The joint space is preserved. There is no evidence of AVN. The labrum is intact. No convincing labral tear is identified. There is abnormal signal intensity within the gluteus medius tendon at its insertion most consistent with strain or partial tear. There is a small amount of fluid superficial to the gluteus tendons which represent mild trochanteric bursitis. Signal intensity within the remaining muscular structure is within normal limits. Remaining soft tissues are unremarkable. IMPRESSION: Gluteus medius strain or partial tear. Mild trochanteric bursitis. Reviewed, Interpreted and Dictated by Blanquita Charlton MD Transcribed by Lanny Drew Authenticated and . [facility]
== END 2025-02-17 23:59 | disposition home or self-care (01) ==
LOC: RAD 14:15
PROVIDERS: PCP Nurse Practitioner Family; Visit Provider Nurse Practitioner Family
DX: M70.62 Trochanteric bursitis, left hip (principal); S76.812A Strain of other specified muscles, fascia and tendons at thigh level, left thigh, initial encounter; M16.12 Unilateral primary osteoarthritis, left hip
CPT/HCPCS: 73721

== ENCOUNTER 2025-03-17 16:26 | Outpatient (CLI) | payer MEDICARE, SELFPAY ==
--- OUTSIDE RECORDS SUMMARY | 2025-03-11 14:15 | XMS_ITS | Encounter Summary ---
Author Organization [employer] ([place], [place], [place], [place], [place]) Address [address] [place] [address] Care Team Providers Care Data Management Engineer Name Role Phone Monroe Lopez MD Unavailable Familia Perez APRN Unavailable [phone] Angeles Hartman APRN Primary Care Provider [phone] Reason for Visit * Reason Comments Polyneuropathy Encounter Details Date Type Department Care Team (Late st Contact Info) Description 03/11/2025 2:15 PM EST Office Visit [facility] Neurology [address] [place] [address] Jewel Nunez MD [address] [facility] [address] [place] [address] Polyneuropathy (Primary Dx); EVAN (obstructive sleep apnea); Obstructive sleep apnea on CPAP; Prediabetes; Obesity (BMI 30-39.9); Numbness and tingling of both legs Social History Tobacco Use Types Packs/Day Years [...] Date Regis rded Speak language other than Azerbaijani at home Not on file 08/02/2023 Want [...] Sign Reading Time Taken Comments Blood Pressure 135/76 03/11/2025 2:18 PM EST Pulse 74 03/11/2025 2:18 PM EST Temperature - - Respiratory Rate - - Oxygen Saturation - - Inhaled Oxygen Concentration - - Weight 127.3 kg (280 lb 11.2 oz) 03/11/2025 2:18 PM EST Height 167.6 cm (5' 6 ) 03/11/2025 2:18 PM EST Body Mass Index 45.31 03/11/2025 2:18 PM EST documented in this encounter Progress Notes * Jewel Nunez MD - 03/11/2025 2:15 PM EST SUBJECTIVE: Patient ID: Mela Carmona is a 59 y.o. female, who presents on 03/11/2025 for follow-up. History of Present Illness Consult: 12/31/24; 59 year old female accompanied with family, referred here from orthopedics for neuropathy. 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 Also there is underlying sensory greater than motor polyneuropathic process. An EMG did not reveal any evidence of lumbosacral root pathology. 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 All the blood work for modifiable causes was WNL PCP tried Wegovy but denied by insurance, cannot do diet pills due to CAD. Review of Systems Musculoskeletal: Positive for arthralgias, gait problem and myalgias. All other systems reviewed and are negative. OBJECTIVE: BP 135/76 (BP Location: Right wrist, Patient Position: Sitting, Cuff Size: Adult) Pulse 74 Ht 1.676 m (5' 6 ) Wt 127.3 kg (280 lb 11.2 oz) BMI 45.31 kg/m?? Physical Exam Vitals and nursing note reviewed. Exam conducted with a deputy sheriff civil division present. Constitutional: Appearance: Normal appearance. She is [...] replacement Neurological: Mental Status: She is alert. Coordination: Romberg sign negative. Deep Tendon Reflexes: [...] the left side. Psychiatric: Speech: Speech normal. Neurological Exam Mental Status Alert. Speech is normal. Cranial Nerves CN III, IV, : Extraocular movements intact bilaterally. Normal lids and orbits bilaterally. Pupils equal round and reactive to light bilaterally. Reflexes Right Left Brachioradialis 1+ 1+ Biceps 1+ 1+ Triceps 1+ 1+ Patellar 0 0 Achilles 0 0 Gait Romberg is absent. @[id number]@ MR spine lumbar without IV contrast Narrative: [...] Taina Barillas. Transcribed by Rosalie Hernandez PA-C. ASSESSMENT & PLAN Diagnoses and all orders for this visit: Polyneuropathy - semaglutide, weight loss, (Wegovy) 0.5 mg/0.5 mL pnij; Inject 0.5 mg under the skin every 7 days. EVAN (obstructive sleep apnea) Obstructive sleep apnea on CPAP - semaglutide, weight loss, (Wegovy) 0.5 mg/0.5 mL pnij; Inject 0.5 mg under the skin every 7 days. Prediabetes - semaglutide, weight loss, (Wegovy) 0.5 mg/0.5 mL pnij; Inject 0.5 mg under the skin every 7 days. Obesity (BMI 30-39.9) - semaglutide, weight loss, (Wegovy) 0.5 mg/0.5 mL pnij; Inject 0.5 mg under the skin every 7 days. Other orders - DULoxetine (CYMBALTA) 60 MG capsule; Take 1 capsule (60 mg total) by mouth 2 (two) times daily. Patient came to clinic accompanied with her who was present throughout history exam and decision making. Her NCV again suggested neuropathy mostly sensory in her feet and left peroneal which is probably causing her a lot of left leg issues. This is limiting her in her activities and have a hard time doing any exercise. Blood work was unremarkable except she is prediabetic. She uses sleep apnea CPAP machine. We have discussed in details about how imperative is that to make her lose weight which will be good for her back and legs well. I am trying to get her on Wegovy since she cannot tolerate any diet pills due to her history of coronary artery disease. Also increase the dose of Cymbalta to 60 mg twice daily now. Return in about 6 months (around 09/08/2025), or if symptoms worsen or fail to improve. PERSON documented in this encounter Plan of Treatment Upcoming Encounters Date Type Department Care Team (Late st Contact Info) Description 09/08/2025 2:15 PM EDT Office Visit [facility] Neurology - [address] [place] [id number] Jewel Nunez MD [address] [facility] [place] [address] [place] [id number] documented as of this encounter Visit Diagnoses Diagnosis Polyneuropathy- Primary Unspecified hereditary and idiopathic peripheral neuropathy EVAN (obstructive sleep apnea) Obstructive sleep apnea (adult) (pediatric) Obstructive sleep apnea on CPAP Prediabetes Other abnormal glucose Obesity (BMI 30-39.9) Numbness and tingling of both legs Disturbance of skin sensation documented in this encounter Care Teams Data Management Engineer Relationship Specialty Start Date End Date Angeles Hartman, ACCOUNTS RECEIVABLE CLERK [address] [address] PCP - General Nurse Practitioner 07/19/24 Monroe Lopez MD [address] [place], [place] [id number] Sports Medicine 02/14/24 Familia Perez, ACCOUNTS RECEIVABLE CLERK [address] [place], [place] [id number] Orthopedic Surgery 03/25/24 documented as of this encounter
[2025-03-17 17:32] LABS: Coronavirus 19, PCR Not Detected (NotDetected); Influenza A, PCR Not Detected (NotDetected); Influenza B, PCR Not Detected (NotDetected)
[2025-03-17 18:36] LABS: Hematocrit 42.2 % (37.0-47.0); Hemoglobin 14.3 g/dL (12.2-16.2); Immature Granulocytes % 0.1 %; Mean Corpuscular HGB Conc 33.9 g/dL (31.8-35.4); Mean Corpuscular Hemoglobin 30.3 pg (27.0-31.2); Mean Corpuscular Volume 89.4 fl (81-99); Nucleated Red Blood Cells % 0 %; Platelet Count 239 K/mm3 (142-424); Red Blood Count 4.72 M/mm3 (4.20-5.40); Red Cell Distribution Width-SD 41.6 fL; White Blood Count 7.8 K/mm3 (4.8-10.8)
[2025-03-17 20:02] LABS: Alanine Aminotransferase 14 U/L (12-78); Albumin Level 4.1 g/dl (3.5-5.0); Albumin/Globulin Ratio 1.3 (1.1-1.8); Alkaline Phosphatase 76 U/L (38-126); Amylase 50 U/L (30-110); Anion Gap 13.3 mEq/L (5-15); Aspartate Amino Transferase 25 U/L (14-36); Bilirubin,Total 0.4 mg/dl (0.2-1.3); Blood Urea Nitrogen 14 mg/dl (7-17); Calcium 9.4 mg/dl (8.4-10.2); Carbon Dioxide 28 mmol/L (22.0-30.0); Chloride 100 mmol/L (98-107); Creatinine,Serum 0.90 mg/dl (0.52-1.04); Estimated Glomerular Filt Rate 65 ml/min (>60); GFR (African American) 78 ML/MIN (>60); Globulin 3.1 g/dL (1.3-3.2); Glucose 81 mg/dl (74-100); Lipase 83 U/L (23-300); Potassium 4.3 mmoL/L (3.5-5.1); Sodium 137 mmol/L (136-145); Total Protein,Serum 7.2 g/dl (6.3-8.2)
--- OUTSIDE RECORDS SUMMARY | 2025-03-18 16:28 | XMS_ITS | Clinical Summary ---
Author Organization [facility] , [facility] Address [address] [place] [address] Phone Care Team Providers Care Email Marketing Executive Name Role Phone DILIP PEOPLESE Unavailable [phone] Nikunj HA, Joey Vieira Unavailable [phone] Reason for Visit and Chief Complaint EMG Problems Includes: Problems addressed during this encounter and other active Problems All Visits Onset Date Resolved Date Provider Condition S tatus Joint Pain Right Thumb 08/23/2023 Karlos de paz PA-C Active Last Documented On 4 10:36AM ; [facility] Lower Back Pain 01/17/2023 Richard Palomo PA-C A ctive Last Documented On 3 2:28PM ; [facility] Joint Pain Hip Left 06/14/2022 Richard Manning Active Last Documented On 3 3:30PM ; [facility] Joint Pain Right Knee 03/25/2022 Janell de paz PA-C Active Last Documented On 2 12:58PM ; [facility] Plan of Treatment No Plan of [...] On 4 10:41AM By Geni Johns ; [facility] HYDROcodone-Acetaminophen 5-325 MG Oral Tablet 024 Provider: Diagnosis: Last Documented On 4 10:41AM By Geni Johns ; [facility], [facility] Repatha SureClick 140 MG/ML Subcutaneous Solution Auto-injector 06/08/2023 Provider: Diagnosis: Last Documented On 4 10:41AM By Geni Johns ; [facility], [facility] Pantoprazole Sodium 40 MG Or al Tablet Delayed Release 06/06/2023 Provider: IGNACIO PEOPLES Diagnosis: Last Documented On 4 10:41AM By Geni Johns ; [facility], [facility] Sertraline HCl 100 MG Oral Tablet 06/06/2023 Provide r: IGNACIO PEOPLES Diagnosis: Last Documented On 4 10:41AM By Geni Johns ; [facility], [facility] Fluconazole 100 MG Oral Tablet 06/06/2023 Provider: IGNACIO PEOPLES Diagnosis: Last Documented On 4 10:41AM By Geni Johns ; [facility], [facility] Ondansetron 4 MG Oral Tablet Disintegrating 06/06/2023 Provider: IGNACOI PEOPLES Diagnosis: Last Documented On 4 10:41AM By Geni Johns ; [facility], [facility] Albuterol Sulfate (2.5 MG/3M L) 0.083% Inhalation Nebulization solution 05/15/2023 Provider: IGNACIO PEOPLES Diagnosis: Last Documented On 4 10:41AM By Geni Johns ; [facility], [facility] Famotidine 20 MG Oral Tablet 05/12/2023 Provider: IGNACIO PEOPLES Diagnosis: Last Documented On 4 10:41AM By Geni Johns ; [facility], [facility] Nystatin 435310 UNIT/ML Mouth/Throat Suspension 2023 Provider: IGNACIO PEOPLES Diagnosis: Last Documented On 4 10:41AM By Geni Johns ; [facility], [facility] Rosuvastatin Calcium 10 MG Oral Tablet 02/23/2023 Pr ovider: Diagnosis: Last Documented On 4 10:41AM By Geni Johns ; [facility] Pregabalin 50 MG Oral Capsule 02/13/2023 Provider: IGNACIO PEOPLES Diagnosis: Last Documented On 4 10:41AM By Geni Johns ; [facility] Amitriptyline HCl 10 MG Oral Tablet 01/10/2023 Provi talat: IGNACIO SHELTON Diagnosis: Last Documented On 3 11:02AM By Geni Johns ; [facility] Prasugrel HCl 10 MG Oral Tablet 01/03/2023 Provider: Diagnosis: Last Documented On 4 10:41AM By Geni Johns ; [facility] DULoxetine HCl 30 MG Oral Ca psule Delayed Release Particles 11/04/2022 Provider: IGNACIO PEOPLES Diagnosis: Last Documented On 4 10:41AM By Geni Johns ; [facility] Carvedilol 3.125 MG Oral Tablet 09/23/2022 Provider: Diagnosis: Last Documented On 4 10:41AM By Geni Johns ; [facility] Esomeprazole Magnesium 40 MG Oral Capsule Delayed Rele ase 06/24/2022 Provider: Diagnosis: Last Documented On 3 10:19AM By Selina Lucas ; [facility] tiZANidine HCl 2 MG Oral Tablet 06/24/2022 Provider: Diagnosis: Last Documented On 3 10:19AM By Selina Lucas ; [facility], [facility] Medications Administered Includes: Administered Medications from [...] Check- Out Time Diagnosis EMG Konrad Rivera [facility] 5 10:57AM 11:59PM Insurance Includes: Active Insurance Policies Plan Name Member ID Group # Subscriber Relationship Effect [id number] Dates - [facility] [id number] Mela Neves Self Clinical Notes Includes: Clinical Notes from this encounter No Clinical Notes Recorded
--- OUTSIDE RECORDS SUMMARY | 2025-03-18 16:28 | XMS_ITS | Clinical Summary ---
Author Organization [facility] Address [address] [place] [address] Care Team Providers Care Tennis Camp Instructor Name Role Phone Hartman Angelesbetty Gonzales APRN Primary Care Provider [phone] Allergies Active Allergy Reactions Criticality Noted Date Comments Atorvastatin Other - please docum ent in the comment field High 05/10/2023 Other reaction(s): Abdominal Pain Clopidogrel Other - please docum ent in the comment field High 05/10/2023 Other reaction(s): NON RESPONDER-STENT THROMBOSIS Medications rosuvastatin (Crestor) 5 MG tablet 06/08/2022 Active furosemide (Lasix) 20 MG tablet Active HYDROcodone-acet aminophen (Rosebud) 5-325 MG tablet 10/31/2022 Active Symbicort 160-4.5 [...] Father's Sister tre Heart disease Maternal Grandfather marat Arthritis Maternal Grandmother cindy Cancer Mother madhavi [...] 09/19/2017 [facility]-Zoster Vaccines (1 of 2) 09/19/2017 [id number] Vaccine (1 - season) 2025 [facility]-Influenza Vaccine [...] Antigen Negative Negative 11/03/2022 10:47 AM EDT [facility] Hepatitis C Antibody Negative Negative 11/03/2022 10:47 AM EDT [facility] Hepatitis A Antibody IgM Negative Negative 11/03/2022 10:47 AM EDT [facility] Hepatitis B Core Antibody IgM Negative Negative 11/03/2022 10:47 AM EDT [facility] Blood Venous blood specimen / Unknown Venipuncture / Unknown 11/03/2022 8:27 AM EDT 11/03/2022 8:28 AM EDT us Janiya Huggins REFORMATORY ATTENDANT LAB BLOOD ORDERABLES Fi nal Result [facility] [address] [place] [address] from Last 3 Months or Most Recently Relevant to Health Maintenance Insurance MEDICARE Care Teams Tennis Camp Instructor Relationship Specialty Start Date End Date Angeles Hartman APRN [address] [place] [id number] PCP - General 09/18/20
--- OUTSIDE RECORDS SUMMARY | 2025-03-18 16:28 | XMS_ITS ---
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 Name Role Phone IGNACIO PEOPLES Unavailable [phone] Nikunj HA, Joey Vieira Unavailable [phone] Reason for Referral Date [...] Active Last Documented On 4 10:36AM ; [facility] Lower Back Pain 01/17/2023 Richard Palomo PA-C A ctive Last Documented On 3 2:28PM ; [facility] Joint Pain Hip Left 06/14/2022 Richard Manning Active Last Documented On 3 3:30PM ; [facility] Joint Pain Right Knee 03/25/2022 Janell de paz PA-C Active Last Documented On 2 12:58PM ; [facility] Joint Pain in Both Knees 12/08/2020 Janell davidson PA-C Inactive Last Documented On 2 9:13AM ; [facility] Lower Back Pain 10/23/2020 11/15/2021 Janell Vila PA-C Resolved Last Documented On 2 9:13AM ; [facility] Plan of Treatment Pending Tests Order Diagnosis Results Due Ordering P rovider Radiology - Bone Scan Lower Extremity 12/22/20 Joey Calvin MD Last Documented On 1 3:29PM ; [facility] Radiology - MRI MRI Lumbar Spine 01/22/21 George in Yonatan Szymanski MD Last Documented On 1 1:39PM ; [facility] Instructions to patient Lose weight Last Documented On 5 1:01PM ; [facility] Intervention and counseling on cessation of tobacco use Last Documented On 4 1:05PM ; [facility] Lose weight Last Documented On 4 1:05PM ; [facility] Intervention and counseling on [...] weight Last Documented On 1 2:06PM ; [facility] Intervention and counseling on cessation of tobacco use Last Documented On 1 10:06AM ; [facility] Lose weight Last Documented On 1 10:06AM ; [facility] Assessments Includes: Assessments for all patient encounters Findings Encounter Date Overweight NEW PROBLEM/EST PT with Karlos jaime PA-C 06/05/2024 Last Documented On 5 3:40PM ; [facility] Overweight Follow Up with Karlos Mclaughlins PA -C 03/06/2024 Last Documented On 4 4:06PM ; [facility] Overweight Follow Up with Karlos Mayra PA -C 11/29/2023 Last Documented On 4 1:34PM ; [facility] Overweight Physician Specified with Karlos Nunez PA-C 08/23/2023 Last Documented On 4 11:23AM ; [facility] No diagnosis of underweight NEW PROBLEM/EST PT w mert Palomo PA-C 01/17/2023 Last Documented On 3 3:10PM ; [facility] Overweight NEW PROBLEM/EST PT with Richard Palomo PA-C 01/17/2023 Last Documented On 3 3:10PM ; [facility] No diagnosis of underweight Follow Up with Vamshi Palomo PA-C 01/16/2023 Last Documented On 3 11:40AM ; [facility] Overweight Follow Up with Richard Palomo PA- C 01/16/2023 Last Documented On 3 11:40AM ; [facility] No diagnosis of underweight INJECTION with Vamshi Martinez PA-C 06/24/2022 Last Documented On 3 8:21AM ; [facility] No diagnosis of underweight NEW PROBLEM/EST PT w ith Richard Palomo PA-C 06/14/2022 Last Documented On 3 4:53PM ; [facility] No diagnosis of underweight INJECTION with Janell Vila PA-C 03/25/2022 Last Documented On 2 1:59PM ; [facility] No diagnosis of underweight Follow Up with Vamshi Palomo PA-C 12/28/2021 Last Documented On 2 12:12PM ; [facility] No diagnosis of underweight Specialty Ph armacy [facility] Injection with Janell Vila PA-C 12/08/2021 Last Documented On 2 3:11PM ; [facility] No diagnosis of underweight Specialty Ph armacy [facility] Injection with Janell Vila PA-C 12/01/2021 Last Documented On 2 3:02PM ; [facility] No diagnosis of underweight Specialty Ph armacy [facility] Injection with Janell Vila PA-C 11/24/2021 Last Documented On 2 3:37PM ; [facility] No diagnosis of underweight Physician Specified with Janell Vila PA-C 11/15/2021 Last Documented On 2 10:11AM ; [facility] Instructions Includes: Instructions for all patient encounters Instructions to patient Lose weight Last Documented On 5 1:01PM ; [facility] Intervention and counseling on cessation of tobacco use Last Documented On 4 1:05PM ; [facility] Lose weight Last Documented On 4 1:05PM ; [facility] Intervention and counseling on cessation of tobacco use Last Documented On 4 1:08PM ; [facility] Lose weight Last Documented On 4 1:08PM ; [facility] Intervention and counseling on cessation of tobacco use Last Documented On 4 10:37AM ; [facility] Lose weight Last Documented On 4 10:37AM ; [facility] Intervention and counseling on cessation of tobacco use Last Documented On 4 10:46AM ; [facility] Lose weight Last Documented On 4 10:42AM ; [facility] No intervention and counseli [...] On 4 10:41AM By Geni Johns ; [facility] Repatha SureClick 140 MG/ML Subcutaneous Solution Auto-injector 06/08/2023 Provider: Diagnosis: Last Documented On 4 10:41AM By Geni Johns ; [facility], [facility] Pantoprazole Sodium 40 MG Or al Tablet Delayed Release 06/06/2023 Provider: IGNACIO PEOPLES Diagnosis: Last Documented On 4 10:41AM By Geni Johns ; [facility] Sertraline HCl 100 MG Oral Tablet 06/06/2023 Provide r: IGNACIO PEOPLES Diagnosis: Last Documented On 4 10:41AM By Geni oJhns ; [facility] Fluconazole 100 MG Oral Tablet 06/06/2023 Provider: IGNACIO PEOPLES Diagnosis: Last Documented On 4 10:41AM By Geni Johns ; [facility], [facility] Ondansetron 4 MG Oral Tablet Disintegrating 06/06/2023 Provider: IGNACIO PEOPLES Diagnosis: Last Documented On 4 10:41AM By Geni Johns ; [facility], [facility] Albuterol Sulfate (2.5 MG/3M L) 0.083% Inhalation Nebulization solution 05/15/2023 Provider: IGNACIO PEOPLES Diagnosis: Last Documented On 4 10:41AM By Geni Johns ; [facility], [facility] Famotidine 20 MG Oral Tablet 05/12/2023 Provider: IGNACIO PEOPLES Diagnosis: Last Documented On 4 10:41AM By Geni Johns ; [facility], [facility] Nystatin 032978 UNIT/ML Mouth/Throat Suspension 2023 Provider: IGNACIO PEOPLES Diagnosis: Last Documented On 4 10:41AM By Geni Johns ; [facility], [facility] Rosuvastatin Calcium 10 MG Oral Tablet 02/23/2023 Pr ovider: Diagnosis: Last Documented On 4 10:41AM By Geni Johns ; [facility] Pregabalin 50 MG Oral Capsule 02/13/2023 Provider: IGNACIO PEOPLES Diagnosis: Last Documented On 4 10:41AM By Geni Johns ; [facility] Amitriptyline HCl 10 MG [...] On 4 10:41AM By Geni Johns ; [facility] Carvedilol 3.125 MG Oral Tablet 09/23/2022 Provider: Diagnosis: Last Documented On 4 10:41AM By Geni Johns ; [facility], [facility] Esomeprazole Magnesium 40 MG Oral Capsule Delayed Rele ase 06/24/2022 Provider: Diagnosis: Last Documented On 3 10:19AM By Selina Lucas ; [facility], [facility] tiZANidine HCl 2 MG Oral Tablet 06/24/2022 Provider: Diagnosis: Last Documented On 3 10:19AM By Selina Lucas ; [facility], [facility] Past Medications on file Meloxicam 15 MG Oral Tablet 06/30/2023 - 07/30/2023 Pr ovider: Richard Palomo PA-C Diagnosis: Take t tablet by mouth once a day Last Documented On 4 11:20AM By Geni Johns ; [facility] Famotidine 20 MG Oral Tablet 01/10/2023 - 06/30/2023 Mickey bustillo: IGNACIO PEOPLES Diagnosis: Last Documented On 4 10:43AM By Geni Johns ; [facility] Rosuvastatin Calcium 5 MG Oral Tablet 01/06/2023 - Provider: Diagnosis: Last Documented On 4 10:42AM By Geni Johns ; [facility] Prasugrel HCl 10 MG Oral Tablet 01/03/2023 - Provider: Diagnosis: Last Documented On 4 10:42AM By Geni Johns ; [facility] Naproxen 250 MG Oral Tablet 12/23/2022 - 06/30/2023 Pr ovider: Diagnosis: Last Documented On 4 10:43AM By Geni Johns ; [facility] Effient 5 MG Oral Tablet 06/24/2022 - 01/16/2023 Provi talat: Diagnosis: Last Documented On 3 11:03AM By Geni Johns ; [facility] Aspirin 325 MG Oral Tablet 06/24/2022 - 01/16/2023 Pro vider: Diagnosis: Last Documented On 3 11:03AM By Geni Johns ; [facility], [facility] Repatha SureClick 140 MG/ML Subcutaneous Solution Auto-injector 06/24/2022 - 01/16/2023 Provider: Diagnosis: Last Documented On 3 11:04AM By Geni Johns ; [facility], [facility] Rosuvastatin Calcium 5 MG Oral Tablet 11/15/2021 - Provider: Diagnosis: Last Documented On 3 10:19AM By Selina Lucas ; [facility], [facility] Esomeprazole Magnesium 40 MG Oral Capsule Delayed Release 11/15/2021 - 06/24/2022 Provider: Diagnosis: Last Documented On 3 10:19AM By Selina Lucas ; [facility], [facility] DULoxetine HCl 20 MG Oral Ca psule Delayed Release Sprinkle 11/15/2021 - 06/24/2022 Provider: Diagnosis: Last Documented On 3 10:19AM By Selina Lucas ; [facility], [facility] Bisoprolol Fumarate 5 MG Oral Tablet 11/15/2021 - 06/08 Provider: Diagnosis: Last Documented On 3 10:18AM By Selina Lucas ; [facility] tiZANidine HCl 2 MG Oral Tablet 11/15/2021 - 3 Provider: Diagnosis: Last Documented On 3 10:19AM By Selina Lucas ; [facility], [facility] Aspirin 325 MG Oral Tablet 11/15/2021 - 06/24/2022 Pro vider: Diagnosis: Last Documented On 3 10:18AM By Selina Lucas ; [facility], [facility] CeleBREX 200 MG Oral Capsule 03/04/2021 - 11/24/2021 P keny: Joey Calvin MD Diagnosis: once a day Last Documented On 2 3:02PM By Jason Santana ; [facility], [facility] Esomeprazole Magnesium 40 MG Oral Capsule Delayed Release 10/10/2020 - 11/15/2021 Provider: IGNACIO DUDLEY [facility] Diagnosis: Last Documented On 2 9:13AM By Jason Santana ; [facility], [facility] Triamterene-HCTZ 37.5-25 MG Oral Tablet 10/09/2020 - 11/15/2021 Provider: IGNACIO PEOPLES Diagnosis: Last Documented On 2 9:13AM By Jason Santana ; [facility], [facility] Gabapentin 800 MG Oral Tablet 10/08/2020 - 11/15/2021 Provider: IGNACIO PEOPLES Diagnosis: Last Documented On 2 9:13AM By Jason Santana ; [facility], [facility] traMADol HCl 50 MG Oral Tablet 09/17/2020 - 11/15/2021 Provider: IGNACIO PEOPLES Diagnosis: Last Documented On 2 9:13AM By Jason Santana ; [facility], [facility] Sertraline HCl 50 MG Oral Tablet 09/02/2020 - 11/16/19 Provider: IGNACIO PEOPLES Diagnosis: Last Documented On 2 9:13AM By Jason Santana ; [facility], [facility] Medications Administered Includes: Administered Medications in patient's chart No Administered Medications Recorded Vital Signs Includes: Vital Signs from 03/18/2024 through 03/18/2025 Vital Name 06/05/2024 01:02P Height (in) 67 Weight (lb) 257 Body Mass Index 40.3 Body Surface Area 2.2 Note: mg Last Documented: On 06/05/2024 1:02PM ; [facility] Results Includes: Results from 03/18/2024 through 03/18/2025 No Results Recorded For Specified Dates History [...] On 1 3:29PM ; [facility] Smoking Status Unknown Procedures and Surgical History Includes: Procedures from 03/18/2024 through 03/18/2025 Procedures Code Diagnosis Performing Provider Service Location Service Date COCK-UP WRIST SPLINT WITH OR W/O THUMB (RIGHT) [id number] Unil primary osteoarth of first carpometacarp joint, r hand Nikolai Fagan MD [facility] 06/05/2024 Last Documented On 5 12:33PM ; [facility] Injection, betamethasone acetate 6mg per cc and betamethason [id number] Unil primary osteoarth of first carpometacarp joint, r hand Nikolai Fagan MD [facility] 06/05/2024 Last Documented On 5 12:32PM ; [facility] DRAIN/INJECT, JOINT/BURSA (RIGHT) Unil primary osteoarth of first carpometacarp joint, r hand Nikolai Fagan MD [facility] 06/05/2024 Last Documented On 5 12:32PM ; [facility] Surgical History Last Updated History of History of Gallbladder 2021 Last Documented On 2 10:11AM ; [facility] History of shoulder arthroplasty 022 Last Documented On 2 10:11AM ; [facility] History of total knee arthroplasty 11/15 Last Documented On 2 10:11AM ; [facility] History of Past Surgical History: 2021 Last Documented On 2 10:11AM ; [facility] Medical History Includes: Medical History in patient's chart Description Last Updated No recent immunization for flu 2 Last Documented On 2 1:59PM ; [facility] No recent immunization for pneumococcal pneumonia 03/25/2022 Last Documented On 2 1:59PM ; [facility] History of arthritis 11/15/2021 Last Documented On 2 10:11AM ; [facility] History of asthma 11/15/2021 Last Documented [...] On 2 10:11AM ; [facility] Asthma 11/15/2021 Last [...] 11/15/2021 Last Documented On 2 10:11AM ; [facility] History of Heart Attack / Stroke 022 Last Documented On 2 10:11AM ; [facility] Osteoporosis 11/15/2021 Last Documented On 2 10:11AM ; [facility] Shoulder arthroplasty 11/15/2021 Last Documented On 2 10:11AM ; [facility] Total knee arthroplasty 11/15/2021 Last Documented On 2 10:11AM ; [facility] Family History Includes: Family History in patient's chart Description Last Updated Family history of cancer 11/15/2021 Last Documented On 2 10:11AM ; [facility] Family history of heart disease 11/16/19 22 Last Documented On 2 10:11AM ; [facility] Family history of rheumatoid arthritis 0 11/15/2021 Last Documented On 2 10:11AM ; [facility] Maternal grandfather's history of family history of heart disease 11/15/2021 Last Documented On 2 10:11AM ; [facility] Maternal grandmother's history of family history of heart disease 11/15/2021 Last Documented On 2 10:11AM ; [facility] Maternal grandmother's history of rheuma toid arthritis 11/15/2021 Last Documented On 2 10:11AM ; [facility] Maternal history of family history of ca ncer 11/15/2021 Last Documented On 2 10:11AM ; [facility] Maternal history of family history of he art disease 11/15/2021 Last Documented On 2 10:11AM ; [facility] Paternal grandfather's history of family history of heart disease 11/15/2021 Last Documented On 2 10:11AM ; [facility] Diabetes mellitus 12/08/2020 Last Documented On 1 3:29PM ; [facility] Review of Systems Review of Systems [...] 11/15/2021 Complete (Refused - Patient objection) [facility] Last Documented On 2 12:35PM ; [facility] PCV (Pneumovax 23) 1 11/15/2021 Complete (Refused - Patient objection) [facility] Last Documented On 2 12:35PM ; [facility] Td 1 11/15/2021 Complete (Refused - Patient objection) [facility] Last Documented On 12:35PM ; [facility] Allergies Includes: Active, inactive, and resolved Allergies No Known Allergies Encounters Includes: Encounters from 03/18/2024 through 03/18/2025 Encounter Provider Location Date Check-In Time Check-Out Time Diagnosis [employer]TING Karlos Nunez PA-C [facility] 06/05/19 1:55PM 11:59PM NEW PROBLEM/EST PT Karlos Nunez PA-C [facility] [place] 06/05/19 1:00PM 1:44PM Overweight [facility] Konrad Miguel [facility] 05/31/19 10:57AM 03/06/2024 11:59PM Insurance Includes: Active Insurance Policies Plan Name Member ID Group # Subscriber Relationship Effect daksha Dates 1 - [email or web address] [id number] Mela Neves Self Clinical Notes Includes: Signed Clinical Notes starting from 04/21/2022 * Progress note Date Encounter Last Documented by 06/05/2024 NEW PROBLEM/EST PT Last document ed on 06/05/2024; 3:40 PM, Karlos Nunez PA-C; [facility] Active Problems & Conditions - Joint [...] Tablet 30 days, 0 refills - Nystatin [id number] UNIT/ML Mouth/Throat Suspension 14 days, 0 refills [...]
--- OUTSIDE RECORDS SUMMARY | 2025-03-18 16:29 | XMS_ITS | Clinical Summary ---
Author Organization [facility] , [facility] Address [address] [place] [address] Phone Care Team Providers Care Thoracic Surgeon Name Role Phone IGNACIO HARTMAN Unavailable [phone] [address], Joey Vieira Unavailable [phone] Reason for Visit and Chief Complaint The Chief Complaint is: Right thumb and hand pain Problems Includes: Problems addressed during this encounter and other active Problems Current Visit Onset Date Resolved Date Provider Conditio n Status Lower Back Pain 01/17/2023 Richard Palomo PA-C A ctive Last Documented On 3 2:28PM ; [facility], [facility] Lower Back Pain 10/23/2020 11/15/2021 Janell Vila PA-C Resolved Last Documented On 2 9:13AM ; [facility], [facility] Past Visits Onset Date Resolved Date Provider Condition Status Joint Pain Right Thumb 08/23/2023 Karlos de paz PA-C Active Last Documented On 4 10:36AM ; [facility], [facility] Joint Pain Hip Left 06/14/2022 Richard Manning Active Last Documented On 3 3:30PM ; [facility], [facility] Joint Pain Right Knee 03/25/2022 Janell de paz PA-C Active Last Documented On 2 12:58PM ; [facility], [facility] Plan of Treatment Instructions to patient Intervention and counseling on cessation of tobacco use Last Documented On 4 1:05PM ; [facility], [facility] Lose weight Last Documented On 4 1:05PM ; [facility], [facility] Assessments Includes: Assessments from this encounter Findings - Overweight - Last Documented On 03/06/2024 4:06PM ; [facility] 58-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 [...] - Last Documented On 03/06/2024 4:06PM ; [facility], [facility] Instructions Includes: Instructions from this encounter Instructions to patient Intervention and counseling on cessation of tobacco use Last Documented On 1:05PM ; [facility] Lose weight Last Documented On 1:05PM ; [facility] Medical Equipment - Implanted Devices Includes: Current Devices No Medical Equipment Recorded Medications Includes: Medications discussed during this encounter and other current Medications Current Medications (continue as prescribed) Naproxen 500 MG Oral Tablet 06/24/2023 Provider: IGNACIO HARTMAN Diagnosis: Last Documented On 4 10:41AM By Geni Johns ; [facility], [facility] HYDROcodone-Acetaminophen 5-325 MG Oral Tablet 024 Provider: Diagnosis: Last Documented On 4 10:41AM By Geni Johns ; [facility], [facility] Repatha SureClick 140 MG/ML Subcutaneous Solution Auto-injector 06/08/2023 Provider: Diagnosis: Last Documented On 4 10:41AM By Geni Johns ; [facility], [facility] Pantoprazole Sodium 40 MG Or al Tablet Delayed Release 06/06/2023 Provider: IGNACIO HARTMAN Diagnosis: Last Documented On 4 10:41AM By Geni Johns ; [facility], [facility] Sertraline HCl 100 MG Oral Tablet 06/06/2023 Provide r: IGNACIO HARTMAN Diagnosis: Last Documented On 4 10:41AM By Geni Johns ; [facility] Fluconazole 100 MG Oral Tablet 06/06/2023 Provider: IGNACIO HARTMAN Diagnosis: Last Documented On 4 10:41AM By Geni Johns ; [facility], [facility] Ondansetron 4 MG Oral Tablet Disintegrating 06/06/2023 Provider: IGNACIO HARTMAN Diagnosis: Last Documented On 4 10:41AM By Geni Johns ; [facility] Albuterol Sulfate (2.5 MG/3M L) 0.083% Inhalation Nebulization solution 05/15/2023 Provider: IGNACIO HARTMAN Diagnosis: Last Documented On 4 10:41AM By Geni Johns ; [facility], [facility] Famotidine 20 MG Oral Tablet 05/12/2023 Provider: IGNACIO HARTMAN Diagnosis: Last Documented On 4 10:41AM By Geni Jhons ; [facility], [facility] Nystatin 589761 UNIT/ML Mouth/Throat Suspension 2023 Provider: IGNACIO HARTMAN Diagnosis: Last Documented On 4 10:41AM By Geni Johns ; [facility], [facility] Rosuvastatin Calcium 10 MG Oral Tablet 02/23/2023 Pr ovider: Diagnosis: Last Documented On 4 10:41AM By Geni Johns ; [facility], [facility] Pregabalin 50 MG Oral Capsule 02/13/2023 Provider: IGNACIO HARTMAN Diagnosis: Last Documented On 4 10:41AM By Geni Johns ; [facility], [facility] Amitriptyline HCl 10 MG Oral Tablet 01/10/2023 Provi talat: IGNACIO HARTMAN Diagnosis: Last Documented On 3 11:02AM By Geni Johns ; [facility] Prasugrel HCl 10 MG Oral Tablet 01/03/2023 Provider: Diagnosis: Last Documented On 4 10:41AM By Geni Johns ; [facility], [facility] DULoxetine HCl 30 MG Oral Ca psule Delayed Release Particles 11/04/2022 Provider: IGNACIO HARTMAN Diagnosis: Last Documented On 4 10:41AM By Geni Johns ; [facility] Carvedilol 3.125 MG Oral Tablet 09/23/2022 Provider: Diagnosis: Last Documented On 4 10:41AM By Geni Johns ; [facility], [facility] Esomeprazole Magnesium 40 MG Oral Capsule Delayed Rele ase 06/24/2022 Provider: Diagnosis: Last Documented On 3 10:19AM By Selina Lucas ; [facility] tiZANidine HCl 2 MG Oral Tablet 06/24/2022 Provider: Diagnosis: Last Documented On 3 10:19AM By Selina Lucas ; [facility], [facility] Past Medications on file Meloxicam 15 MG Oral Tablet 06/30/2023 - 07/30/2023 Pr ovider: Richard Palomo PA-C Diagnosis: Take t tablet by mouth once a day Last Documented On 4 11:20AM By Geni Johns ; [facility], [facility] Medications Administered Includes: Administered Medications from this encounter No Administered Medications Recorded Vital Signs Includes: Vital Signs from this encounter Vital Name 03/06/2024 01:06P Height (in) 67 Weight (lb) 257 Body Mass Index 40.3 Body Surface Area 2.2 Note: KL Last Documented: On 03/06/2024 1:06PM ; [facility], [facility] Results Includes: Results discussed during this encounter [...] 06/24/2022 Last Documented On 4 1:05PM ; [facility] Tobacco non-user 03/25/2022 Last Documented On 4 1:05PM ; [facility] Exercising regularly 03/25/2022 Last [...] 4000F Last Documented On 4 1:05PM ; [facility] use of tobacco assessment performed 1000F Last Documented On 4 1:05PM ; [facility], [facility] review of medications documented 1160F Last Documented On 4 1:05PM ; [facility], [facility] an X-ray was performed 39993 Last Documented On 4 1:05PM ; [facility], [facility] brace Last Documented On 4 1:05PM ; [facility], [facility] Surgical History Last Updated History of History of Gallbladder 2021 Last Documented On 4 1:05PM ; [facility], [facility] History of shoulder arthroplasty 022 Last Documented On 4 1:05PM ; [facility], [facility] History of total knee arthroplasty 11/15 Last Documented On 4 1:05PM ; [facility], [facility] History of Past Surgical History: 2021 Last Documented On 4 1:05PM ; [facility], [facility] Medical History Includes: Medical History addressed during this encounter Description Last Updated No recent immunization for flu 2 Last Documented On 4 1:05PM ; [facility], [facility] No recent immunization for pneumococcal pneumonia 03/25/2022 Last Documented On 4 1:05PM ; [facility], [facility] History of arthritis 11/15/2021 Last Documented On 4 1:05PM ; [facility], [facility] History of asthma 11/15/2021 Last Documented On 4 1:05PM ; [facility], [facility] History of depression 11/15/2021 Last Documented On 4 1:05PM ; [facility], [facility] History of heart disease 11/15/2021 Last Documented On 4 1:05PM ; [facility], [facility] History of History of Blood Clots 2021 Last Documented On 4 1:05PM ; [facility], [facility] History of History of Heart Attack / Str giselle 11/15/2021 Last Documented On 4 1:05PM ; [facility] History of osteoporosis 11/15/2021 Last Documented On 4 1:05PM ; [facility] Arthritis 11/15/2021 Last Documented On 4 1:05PM ; [facility] Asthma 11/15/2021 Last Documented On 4 1:05PM ; [facility] Depression 11/15/2021 Last Documented On 4 1:05PM ; [facility] Heart disease 11/15/2021 Last Documented On 4 1:05PM ; [facility] Heartburn / Acid Reflux 11/15/2021 Last Documented On 4 1:05PM ; [facility] History of Blood Clots 11/15/2021 Last Documented On 4 1:05PM ; [facility] History of Gallbladder 11/15/2021 Last Documented On 4 1:05PM ; [facility] History of Heart Attack / Stroke 022 Last Documented On 4 1:05PM ; [facility] Osteoporosis 11/15/2021 Last Documented On 4 1:05PM ; [facility] Shoulder arthroplasty 11/15/2021 Last Documented On 4 1:05PM ; [facility] Total knee arthroplasty 11/15/2021 Last Documented On 4 1:05PM ; [facility] Family History Includes: Family History addressed during this encounter Description Last Updated Family history of cancer 11/15/2021 Last Documented On 4 1:05PM ; [facility] Family history of heart disease 11/16/19 22 Last Documented On 4 1:05PM ; [facility] Family history of rheumatoid arthritis 0 11/15/2021 Last Documented On 4 1:05PM ; [facility] Maternal grandfather's history of family history of heart disease 11/15/2021 Last Documented On 4 1:05PM ; [facility] Maternal grandmother's history of family history of heart disease 11/15/2021 Last Documented On 4 1:05PM ; [facility], [facility] Maternal grandmother's history of rheuma toid arthritis 11/15/2021 Last Documented On 4 1:05PM ; [facility] Maternal history of family history of ca ncer 11/15/2021 Last Documented On 4 1:05PM ; [facility], [facility] Maternal history of family history of he art disease 11/15/2021 Last Documented On 4 1:05PM ; [facility], [facility] Paternal grandfather's history of family history of heart disease 11/15/2021 Last Documented On 4 1:05PM ; [facility], [facility] Diabetes mellitus 12/08/2020 Last Documented On 4 1:05PM ; [facility], [facility] Review of Systems Includes: Review of Systems [...] Time Diagnosis Follow Up Karlos Nunez PA-C [facility] 4 12:58PM 1:18PM Overweight Insurance Includes: Active Insurance Policies Plan Name Member ID Group # Subscriber Relationship Effect [id number] Dates 1 - [facility]/ JENNIFER [id number] Mela Neves Self Clinical Notes Includes: Clinical Notes from this encounter * Progress note Date Encounter Last Documented by 03/06/2024 Follow Up Last documented on 03/06/2024; 4:06 PM, Karlos Mcneil; [facility], [facility] Active Problems & Conditions - [...] Tablet 30 days, 0 refills - Nystatin [id number] UNIT/ML Mouth/Throat Suspension 14 days, 0 refills [...]
--- OUTSIDE RECORDS SUMMARY | 2025-03-18 16:29 | XMS_ITS | Referral Summary ---
Author Organization [employer] ([place], [place], [place], [place], [place]) Address [address] [place] [address] Care Team Providers Care Hole Filler Name Role Phone Monroe Lopez MD Unavailable Familia Perez APRN Unavailable [phone] Angeles Hartman APRN Primary Care Provider Encounters Date Type Department Care Team Description 03/11/2025 2:15 PM EST Office Visit [facility] Neurology - [facility] [address] [place] [address] Jewel Nunez MD Polyneuropathy (Primary Dx); EVAN (obstructive sleep apnea); Obstructive sleep apnea on CPAP; Prediabetes; Obesity (BMI 30-39.9); Numbness and tingling of both legs 01/09/2025 Telephone [facility] Neurology [facility] [address] [place] [address] Danae Alexander, JALEESA Results 12/31/2024 10:00 AM EDT Office Visit [facility] Neurology [facility] [address] [place] [address] Jewel Nunez MD Polyneuropathy (Primary Dx); Peripheral polyneuropathy from Last 3 Months Allergies Active Allergy Reactions Criticality Noted Date Comments Atorvastatin High 05/10/2023 Other reaction(s): Abdominal Pain Clopidogrel High 05/10/2023 Other reaction(s): NON RESPONDER-STENT THROMBOSIS Medications albuterol HFA (VENTOLIN HFA) 90 mcg/actuation inhaler 3 Active budesonide-for moteroL (SYMBICORT) 160-4.5 mcg/actuation inhaler SMARTSIG:Vi a Inhaler 4 Active famotidine (PEPCID) 20 MG tablet Take 1 tablet (20 mg total) by mouth daily. 4 Active Repatha SureClick 140 mg/mL PnIj Inject subcutaneou sly. 4 Active HYDROcodone-ac etaminophen (NORCO 5-325) 5-325 mg per tablet 3 Active pantoprazole (PROTONIX) 40 MG tablet Take 1 tablet (40 mg total) by mouth daily. 4 Active rOPINIRole (REQUIP) 0.25 MG tablet 4 tablets (1 mg total). 3 Active sertraline (ZOLOFT) 100 MG tablet Take 1 tablet (100 mg total) by mouth daily. 4 Active tiZANidine (ZANAFLEX) 4 MG tablet Active venlafaxine (EFFEXOR) 75 MG tablet Daily 4 Active HYDROcodone-ac etaminophen (NORCO) 10-325 mg per tablet Take 1 tablet by mouth 3 (three) times daily as needed. 5 Active prasugreL HCl (EFFIENT) 10 mg tab [...] tablet (25 mg total) by mouth daily. 5 Active bumetanide (BUMEX) 2 MG tablet Take 1 tablet (2 mg total) by mouth daily. Active semaglutide, weight loss, (Wegovy) 0.5 mg/0.5 mL pnijIndication s:Polyneuropat hy,Obstructive sleep apnea on CPAP,Prediabet es,Obesity (BMI 30-39.9) Inject 0.5 mg under the skin every 7 days. 4 mL 5 03/11/20 Active DULoxetine (CYMBALTA) 60 MG capsule Take 1 capsule (60 mg total) by mouth 2 (two) times daily. 180 capsule 3 5 03/11/20 26 Active DULoxetine (CYMBALTA) 30 MG capsule One PO qhs for 2 weeks, then 1 BID and continue.. 60 tablet 03/11/20 25 Discontinued Active Problems Problem Noted Date Diagnosed Date [...] Date Regis rded Speak language other than Omani at home Not on file 08/02/2023 Want [...] PM EST Temperature - - Respiratory Rate 19 02/15/2024 2:53 PM EDT Oxygen Saturation - - Inhaled Oxygen Concentration - - Weight 127.3 kg (280 lb 11.2 oz) 03/11/2025 2:18 PM EST Height 167.6 cm (5' 6 ) 03/11/2025 2:18 PM EST Body Mass Index 45.31 03/11/2025 2:18 PM EST Plan of Treatment Upcoming Encounters Date Type Department Care Team (Late st Contact Info) Description 09/08/2025 2:15 PM EDT Office Visit [facility] - [facility] [address] [place] [address] Jewel Nunez MD [address] [facility] [address] [place] [address] Procedures Procedure Name Priority Date/Time Associated Diagnosis [...] 3:07 PM EDT Performed at: 04 - [employer] [address] [place] [id number] Family Service Aide: Dragan Rodrigues MD, Phone: [phone] us Jewel Nunez MD LAB BLOOD ORDERABLES Final Resul t Performing Organization Address [facility] de Phone Number [facility] * Lyme Disease Serology w/Reflex (12/31/2024 11:15 AM EDT) [facility] Lyme Total Antibody EIA Negative Negative [...] 3:07 PM EDT Performed at: 01 - [address] [id number] Family Service Aide: Paddy Rivera PhD, Phone: [phone] Jewel Nunez MD LAB BLOOD ORDERABLES Final Resul t Performing Organization Address [facility] de Phone Number [facility] * Copper, Plasma and RBC (12/31/2024 11:15 AM EDT) Pathologist [facility] Copper, Pl([facility]) 1.25 0.65 - 1.92 ug/mL [facility] Copper, RBC([facility]) 0.70 0.50 - 1.00 ug/mL [facility] Comment: This test was developed and its performance characteristics determined by [facility]. It has not been cleared or approved by the Food and Drug Administration. 12/31/2024 11:1 5 AM EDT 12/31/2024 Narrative [facility] - 01/11/2025 3:07 PM EDT Performed at: 02 - [facility] [address] [place] [id number] Family Service Aide: Josee Ingram [facility], Phone: [phone] Jewel Nunez MD LAB BLOOD ORDERABLES Final Resul t Performing Organization Address City/[facility] Co de Phone Number [facility] * Anti-Hu, Anti-Ri, Anti-Yo IFA (12/31/2024 11:15 AM EDT) Anti-Hu Ab([facility]) Negative Negative [facility] Anti-Ri Ab([facility]) Negative Negative [facility] Anti-Yo Ab([facility]) Negative Negative [facility] 12/31/2024 11:1 5 AM EDT 12/31/2024 Narrative [facility] - 01/11/2025 3:07 PM EDT Test(s) 337463-Oddq-Yq Ab; 742778-Uucx-Wt Ab; 635146- BROKE WORKER Type-1 (Anti-Yo) Ab was developed and its performance characteristics determined by [facility]. It has not been cleared or approved by the Food and Drug Administration. Performed at: [address] [place] [id number] Family Service Aide: Tyesha Lorenzo MD, Phone: [phone] Jewel uNnez MD LAB BLOOD ORDERABLES Final Resul t Performing Organization Address [facility] de Phone Number [facility] * Vitamin B1 (Thiamine), Whole Blood, LC/MS/MS (12/31/2024 11:15 AM EDT) Pathologist [facility] Vit. B1, Whole Blood 107.3 66.5 - 200.0 nmol/L [facility] 12/31/2024 11:1 5 AM EDT 12/31/2024 Narrative [facility] - 01/11/2025 3:07 PM EDT Test(s) 577264-Mcf. B1, Whole Blood was developed and its performance characteristics determined by [facility]. It has not been cleared or approved by the Food and Drug Administration. Performed at: [address] [place] [id number] Family Service Aide: Tyesha Lorenzo MD, Phone: [phone] Jewel Nunez MD LAB BLOOD ORDERABLES Final Resul t Performing Organization Address [facility] de Phone Number [facility] * TSH W/REFLEX TO FT4 (12/31/2024 11:15 AM EDT) TSH 0.985 0.450 - 4.500 uIU/mL [facility] 12/31/2024 11:1 5 AM EDT 12/31/2024 Narrative [facility] - 01/11/2025 3:07 PM EDT Performed at: [facility] [address] [id number] Family Service Aide: Paddy Rivera PhD, Phone: [phone] Jewel Nunez MD LAB BLOOD ORDERABLES Final Resul t Performing Organization Address [facility] Co de Phone Number [facility] * (ABNORMAL) HGB A1C WITH EAG ESTIMA (12/31/2024 11:15 AM EDT) Pathologist [facility] Hemoglobin A1c 5.9(H) 4.8 - 5.6 % [facility] Comment: Prediabetes: 5.7 - 6.4 Diabetes: >6.4 Glycemic control for adults with diabetes: <7.0 Hemoglobin A1c 123 mg/dL [facility] 12/31/2024 11:1 5 AM EDT 12/31/2024 Narrative [facility] - 01/11/2025 3:07 PM EDT Performed at: [facility] [address] [id number] Family Service Aide: Paddy Rivera PhD, Phone: [phone] us Jewel Nunez MD LAB BLOOD ORDERABLES Final Resul t Performing Organization Address City/[facility]/ZIP Co de Phone Number [facility] * ANTINUCLEAR ANTIBODIES DIRECT (12/31/2024 11:15 AM EDT) Pathologist [facility] Antinuclear Antibodies, IFA Negative [facility] Comment: Negative <1:80 Borderline 1:80 Positive >1:80 ICAP nomenclature: AC-0 For more information about Hep-2 cell patterns use ANApatterns.org, the official website for the International Consensus on Antinuclear Antibody (PHILLIP) Patterns (ICAP). Blood VENOUS STRUCTURE / Unknown 12/31/2024 11:15 AM EDT 12/31/2024 Narrative [facility] - 01/11/2025 3:07 PM EDT Performed at: [address] [place] [id number] Family Service Aide: Paddy Rivera PhD, Phone: [phone] Jewel Nunez MD LAB BLOOD ORDERABLES Final Resul t Performing Organization Address City/[facility] Co de Phone Number [facility] * Vitamin B12 and Folate (12/31/2024 11:15 AM EDT) Pathologist [facility] Vitamin B12 404 232 - 1,245 pg/mL [facility] Folate (Folic Acid), Serum 14.1 >3.0 ng/mL [facility] Comment: A serum folate concentration of less than 3.1 ng/mL is considered to represent clinical deficiency. Blood 12/31/2024 11:1 5 AM EDT 12/31/2024 Narrative [facility] - 01/11/2025 3:07 PM EDT Performed at: [address] [place] [id number] Family Service Aide: Paddy Rivera PhD, Phone: [phone] Jewel Nunez MD LAB BLOOD ORDERABLES Final Resul t Performing Organization Address City/[facility] Co de Phone Number [facility] * Sjogren's antibodies (12/31/2024 11:15 AM EDT) Pathologist [facility] Sjogren's Anti-SS-A <0.2 0.0 - 0.9 AI [facility] Sjogren's Anti-SS-B <0.2 0.0 - 0.9 AI [facility] Blood 12/31/2024 11:1 5 AM EDT 12/31/2024 Narrative [facility] - 01/11/2025 3:07 PM EDT Performed at: 01 - [address] [id number] Family Service Aide: Paddy Rivera PhD, Phone: [phone] us Jewel Nunez MD LAB BLOOD ORDERABLES Final Resul t Performing Organization Address [facility] de Phone Number [facility] * Methylmalonic acid (12/31/2024 11:15 AM EDT) Pathologist [facility] Methylmalonic Acid, Serum 189 0 - 378 nmol/L [facility] Blood 12/31/2024 11:1 5 AM EDT 12/31/2024 Narrative [facility] - 01/11/2025 3:07 PM EDT Test(s) 049214-Duflahgfsjdbw Acid, Serum was developed and its performance characteristics determined by [facility]. It has not been cleared or approved by the Food and Drug Administration. Performed at: - [address] [id number] Family Service Aide: Tyesha Lorenzo MD, Phone: [phone] us Jewel Nunez MD LAB BLOOD ORDERABLES Final Resul t Performing Organization Address [facility] Phone Number [facility] * Rheumatoid factor Ab, reflex to titer (12/31/2024 11:15 AM EDT) [facility] RA Latex Turbid. <10.0 <14.0 IU/mL [facility] Blood 12/31/2024 11:1 5 AM EDT 12/31/2024 Narrative [facility] - 01/11/2025 3:07 PM EDT Performed at: - [address] [id number] Family Service Aide: Paddy Rivera PhD, Phone: [phone] us Jewel Nunez MD LAB BLOOD ORDERABLES Final Resul t Performing Organization Address [facility] de Phone Number [facility] * Sedimentation rate (12/31/2024 11:15 AM EDT) [facility] Sedimentation Rate-Westergren 12 0 - 40 mm/hr [facility] Blood 12/31/2024 11:1 5 AM EDT 12/31/2024 Narrative [facility] - 01/11/2025 3:07 PM EDT Performed at: [address] [place] [id number] Family Service Aide: Paddy Rivera PhD, Phone: [phone] us Jewel Nunez MD LAB BLOOD ORDERABLES Final Resul t Performing Organization Address [facility] Co de Phone Number [facility] * Angiotensin Converting Enzyme (KEENAN) (12/31/2024 11:15 AM EDT) [facility] KEENAN 30 14 - 82 U/L [facility] Blood 12/31/2024 11:1 5 AM EDT 12/31/2024 Narrative [facility] - 01/11/2025 3:07 PM EDT Performed at: [address] [place] [id number] Family Service Aide: Paddy Rivera PhD, Phone: [phone] us Jewel Nunez MD LAB BLOOD ORDERABLES Final Resul t Performing Organization Address [facility] de Phone Number [facility] * VITAMIN E (12/31/2024 11:15 AM EDT) [facility] Vitamin E(Alpha Tocopherol) 12.2 7.0 - 25.1 mg/[facility] Vitamin E(Gamma Tocopherol) 1.2 0.5 - 5.5 mg/L [facility] Comment: Reference intervals for alpha and gamma-tocopherol determined from National Health and Nutrition Examination Survey, 2806-1415. Individuals with alpha-tocopherol levels less than 5.0 mg/L are considered vitamin E deficient. Blood 12/31/2024 11:1 5 AM EDT 12/31/2024 Narrative [facility] - 01/11/2025 3:07 PM EDT Test(s) 399880-Yskzmoq E(Alpha Tocopherol); 659371- Vitamin E(Gamma Tocopherol) was developed and its performance characteristics determined by [facility]. It has not been cleared or approved by the Food and Drug Administration. Performed at: 03 - [address] [id number] Family Service Aide: Tyesha Lorenzo MD, Phone: [phone] Jewel Nunez MD LAB BLOOD ORDERABLES Final Resul t Performing Organization Address [facility] de Phone Number [facility] * Vitamin B6, Plasma (12/31/2024 11:15 AM EDT) Vitamin B6 7.3 3.4 - 65.2 ug/L [facility] Comment: Deficiency: <3.4 Marginal: 3.4 - 5.1 Adequate: >5.1 Blood 12/31/2024 11:1 5 AM EDT 12/31/2024 Narrative [facility] - 01/11/2025 3:07 PM EDT Test(s) 861959-Hdnaefp B6 was developed and its performance characteristics determined by [facility]. It has not been cleared or approved by the Food and Drug Administration. Performed at: [address] [id number] Family Service Aide: Tyesha Lorenzo MD, Phone: [phone] Jewel Nunez MD LAB BLOOD ORDERABLES Final Resul t Performing Organization Address [facility] de Phone Number [facility] * PROTEIN ELECTROPHORESIS, SERUM WITH REFLEX TO IMMUNOTYPING (12/31/2024 11:15 AM EDT) Protein, Total, Serum 6.9 6.0 - 8.5 g/dL [facility] Albumin 3.8 2.9 - 4.4 g/dL [facility] Psryp-7-Wcuvfrbi 0.3 0.0 - 0.4 g/dL [facility] Fvzpa-4-Rlhqsfcr 1.0 0.4 - 1.0 g/dL [facility] Beta Globulin 1.1 0.7 - 1.3 g/dL [facility] Gamma Globulin 0.8 0.4 - 1.8 g/dL [facility] M-Zach Not Observed Not Observed g/dL [facility] Globulin, Total 3.1 2.2 - 3.9 g/dL [facility] A/G Ratio 1.2 0.7 - 1.7 [facility] Please note: Comment [facility] Comment: Protein electrophoresis scan will follow via computer, mail, or cocoa bean cleaner delivery. P E Interpretation, S Comment [facility] Comment: The SPE pattern appears unremarkable. Evidence of monoclonal protein is not apparent. Blood 12/31/2024 11:1 5 AM EDT 12/31/2024 Narrative [facility] - 01/11/2025 3:07 PM EDT Performed at: - [facility] [place] [id number] Family Service Aide: Paddy Rivera PhD, Phone: [phone] us Jewel Nunez MD LAB BLOOD ORDERABLES Final Resul t Performing Organization Address City/State/[facility] Co de Phone Number [facility] from Last 3 Months Insurance AARP MEDICARE COMPLETE MAP Care Teams Hole Filler Relationship Specialty Start Date End Date Angeles Hartman, DAIRY SCIENTIST [address] [facility] [address] [place] [address] PCP - General Nurse Practitioner 07/19/24 Monroe Lopez MD [address] [place] [id number] Sports Medicine 02/14/24 Familia Perez, DAIRY SCIENTIST [address] [place] [address] Orthopedic Surgery 03/25/24
--- OUTSIDE RECORDS SUMMARY | 2025-03-18 16:29 | XMS_ITS ---
Care Plan - [facility], [facility] Created on: March 18, 2025 Jimena Nevesline : 1965 Sex: Female Author Organization [facility] , [facility] Address [address] [place] [address] Phone Care Team Providers Care Multifocal Lens Assembler Name Role Phone PEOPLESLEXY RUANONIE Unavailable [phone] Nikunj HA, Joey Vieira Unavailable [phone]
--- OUTSIDE RECORDS SUMMARY | 2025-03-18 16:29 | XMS_ITS | Clinical Summary ---
Author Organization [facility] , [facility] Address [address] [place] [address] Phone Care Team Providers Care Injection Press Operator Name Role Phone IGNACIO HARTMAN Unavailable [phone] Nikunj HA, Joey Vieira Unavailable [phone] Reason for Visit and Chief Complaint The Chief Complaint is: lt elbow pain Problems Includes: Problems addressed during this encounter and other active Problems Current Visit Onset Date Resolved Date Provider Conditio n Status Lower Back Pain 01/17/2023 Richard Palomo PA-C A ctive Last Documented On 3 2:28PM ; [facility] Lower Back Pain 10/23/2020 11/15/2021 Janell Vila PA-C Resolved Last Documented On 2 9:13AM ; [facility], [facility] Past Visits Onset Date Resolved Date Provider Condition Status Joint Pain Right Thumb 08/23/2023 Karlos de paz PA-C Active Last Documented On 4 10:36AM ; [facility] Joint Pain Hip Left 06/14/2022 Richard Manning Active Last Documented On 3 3:30PM ; [facility] Joint Pain Right Knee 03/25/2022 Janell de paz PA-C Active Last Documented On 2 12:58PM ; [facility] Plan of Treatment Pending Tests Order Diagnosis Results Due Ordering P rovider Therapy - Occupational Therapy Elbow Overweight 06/05 Karlos Nunez PA-C Last Documented On 5 3:40PM ; [facility], [facility] Instructions to patient Lose weight Last Documented On 5 1:01PM ; [facility], [facility] Assessments Includes: Assessments from this encounter Findings - Overweight - Last Documented On 06/05/2024 3:40PM ; [facility], [facility] Instructions Includes: Instructions from this encounter Instructions to patient Lose weight Last Documented On 5 1:01PM ; [facility], [facility] Medical Equipment - Implanted Devices Includes: Current Devices No Medical Equipment Recorded Medications Includes: Medications discussed during this encounter and other current Medications Current Medications (continue as prescribed) Naproxen 500 MG Oral Tablet 06/24/2023 Provider: IGNACIO HARTMAN Diagnosis: Last Documented On 4 10:41AM By eGni Johns ; [facility], [facility] HYDROcodone-Acetaminophen 5-325 MG Oral Tablet 024 Provider: Diagnosis: Last Documented On 4 10:41AM By Geni Johns ; [facility], [facility] Repatha SureClick 140 MG/ML Subcutaneous Solution Auto-injector 06/08/2023 Provider: Diagnosis: Last Documented On 4 10:41AM By Geni Johns ; [facility], [facility] Pantoprazole Sodium 40 MG Or al Tablet Delayed Release 06/06/2023 Provider: IGNACIO HARTMAN Diagnosis: Last Documented On 4 10:41AM By Geni Johns ; [facility], [facility] Sertraline HCl 100 MG Oral Tablet 06/06/2023 Provide r: IGNACIO HARTMAN Diagnosis: Last Documented On 4 10:41AM By Geni Johns ; [facility], [facility] Fluconazole 100 MG Oral Tablet 06/06/2023 Provider: IGNACIO HARTMAN Diagnosis: Last Documented On 4 10:41AM By Geni Johns ; [facility], [facility] Ondansetron 4 MG Oral Tablet Disintegrating 06/06/2023 Provider: IGNACIO HARTMAN Diagnosis: Last Documented On 4 10:41AM By Geni Johns ; [facility], [facility] Albuterol Sulfate (2.5 MG/3M L) 0.083% Inhalation Nebulization solution 05/15/2023 Provider: IGNACIO HARTMAN Diagnosis: Last Documented On 4 10:41AM By Geni Johns ; [facility] Famotidine 20 MG Oral Tablet 05/12/2023 Provider: IGNACIO HARTMAN Diagnosis: Last Documented On 4 10:41AM By Geni Johns ; [facility] Nystatin 717850 UNIT/ML Mouth/Throat Suspension 2023 Provider: IGNACIO HRATMAN Diagnosis: Last Documented On 4 10:41AM By Geni Johns ; [facility] Rosuvastatin Calcium 10 MG Oral Tablet 02/23/2023 Pr ovider: Diagnosis: Last Documented On 4 10:41AM By Geni Johns ; [facility] Pregabalin 50 MG Oral Capsule 02/13/2023 Provider: IGNACIO HARTMAN Diagnosis: Last Documented On 4 10:41AM By Geni Johns ; [facility] Amitriptyline HCl 10 MG Oral Tablet 01/10/2023 Provi talat: IGNACIO SHELTON Diagnosis: Last Documented On 3 11:02AM By Geni Johns ; [facility] Prasugrel HCl 10 MG Oral Tablet 01/03/2023 Provider: Diagnosis: Last Documented On 4 10:41AM By Geni Johns ; [facility] DULoxetine HCl 30 MG Oral Ca psule Delayed Release Particles 11/04/2022 Provider: IGNACIO HARTMAN Diagnosis: Last Documented On 4 10:41AM By Geni Johns ; [facility] Carvedilol 3.125 MG Oral Tablet 09/23/2022 Provider: Diagnosis: Last Documented On 4 10:41AM By Geni Johns ; [facility] Esomeprazole Magnesium 40 MG Oral Capsule Delayed Rele ase 06/24/2022 Provider: Diagnosis: Last Documented On 3 10:19AM By Selina Lucas ; [facility] tiZANidine HCl 2 MG Oral Tablet 06/24/2022 Provider: Diagnosis: Last Documented On 3 10:19AM By Selina Lucas ; [facility], [facility] Past Medications on file Meloxicam 15 MG Oral Tablet 06/30/2023 - 07/30/2023 Pr ovider: Richard Palomo PA-C Diagnosis: Take t tablet by mouth once a day Last Documented On 4 11:20AM By Geni Johns ; [facility], [facility] Medications Administered Includes: Administered Medications from this encounter No Administered Medications Recorded Vital Signs Includes: Vital Signs from this encounter Vital Name 06/05/2024 01:02P Height (in) 67 Weight (lb) 257 Body Mass Index 40.3 Body Surface Area 2.2 Note: mg Last Documented: On 06/05/2024 1:02PM ; [facility], [facility] Results Includes: Results discussed during this encounter [...] 06/24/2022 Last Documented On 5 1:01PM ; [facility] Tobacco non-user 03/25/2022 Last Documented On 5 1:01PM ; [facility], [facility] Exercising regularly 03/25/2022 Last Documented On 5 1:01PM ; [facility], [facility] No recent change in diet 03/25/2022 Last Documented On 5 1:01PM ; [facility], [facility] Not a smoker 03/25/2022 Last Documented On 5 1:01PM ; [facility], [facility] Not using alcohol 03/25/2022 Last Documented On 5 1:01PM ; [facility], [facility] Not using drugs 03/25/2022 Last Documented On 5 1:01PM ; [facility] Non-smoker 12/08/2021 Last Documented On 5 1:01PM ; [facility] Caffeine use 11/15/2021 Last Documented On 5 1:01PM ; [facility] Yes, current smoker. 11/15/2021 Last Documented On 5 1:01PM ; [facility], [facility] Never drank alcohol 11/15/2021 Last Documented On 5 1:01PM ; [facility], [facility] Never used drugs 11/15/2021 Last Documented On 5 1:01PM ; [facility], [facility] No recent change in diet 12/08/2020 Last Documented On 5 1:01PM ; [facility], [facility] Yes, current smoker. 12/08/2020 Last Documented On 5 1:01PM ; [facility], [facility] Smoking Status Unknown Procedures and Surgical History Includes: Procedures from this encounter Procedures Code Diagnosis Performing Provider Service Location Service Date DRAIN/INJECT, JOINT/BURSA (RIGHT) Unil primary osteoarth of first carpometacarp joint, r hand Nikolai Fagan MD [facility] 06/05/2024 Last Documented On 5 12:32PM ; [facility], [facility] Injection, betamethasone acetate 6mg per cc and betamethason J0702 Unil primary osteoarth of first carpometacarp joint, r hand Nikolai Fagan MD [facility] 06/05/2024 Last Documented On 5 12:32PM ; [facility], [facility] use of tobacco assessment performed 1000F Last Documented On 5 1:01PM ; [facility], [facility] review of medications documented 1160F Last Documented On 5 1:01PM ; [facility] an X-ray was performed 61138 Last Documented On 5 1:01PM ; [facility], [facility] brace Last Documented On 5 1:01PM ; [facility], [facility] Surgical History Last Updated History of History of Gallbladder 2021 Last Documented On 5 1:01PM ; [facility], [facility] History of shoulder arthroplasty 022 Last Documented On 5 1:01PM ; [facility], [facility] History of total knee arthroplasty 11/15 Last Documented On 5 1:01PM ; [facility], [facility] History of Past Surgical History: 2021 Last Documented On 5 1:01PM ; [facility], [facility] Medical History Includes: Medical History addressed during this encounter Description Last Updated No recent immunization for flu 2 Last Documented On 5 1:01PM ; [facility], [facility] No recent immunization for pneumococcal pneumonia 03/25/2022 Last Documented On 5 1:01PM ; [facility], [facility] History of arthritis 11/15/2021 Last Documented On 5 1:01PM ; [facility], [facility] History of asthma 11/15/2021 Last Documented On 5 1:01PM ; [facility], [facility] History of depression 11/15/2021 Last Documented On 5 1:01PM ; [facility], [facility] History of heart disease 11/15/2021 Last Documented On 5 1:01PM ; [facility] History of History of Blood Clots 2021 Last Documented On 5 1:01PM ; [facility], [facility] History of History of Heart Attack / Str giselle 11/15/2021 Last Documented On 5 1:01PM ; [facility], [facility] History of osteoporosis 11/15/2021 Last Documented On 5 1:01PM ; [facility], [facility] Arthritis 11/15/2021 Last Documented On 5 1:01PM ; [facility], [facility] Asthma 11/15/2021 Last Documented On 5 1:01PM ; [facility] Depression 11/15/2021 Last Documented On 5 1:01PM ; [facility] Heart disease 11/15/2021 Last Documented On 5 1:01PM ; [facility] Heartburn / Acid Reflux 11/15/2021 Last Documented On 5 1:01PM ; [facility] History of Blood Clots 11/15/2021 Last Documented On 5 1:01PM ; [facility] History of Gallbladder 11/15/2021 Last Documented On 5 1:01PM ; [facility] History of Heart Attack / Stroke 022 Last Documented On 5 1:01PM ; [facility] Osteoporosis 11/15/2021 Last Documented On 5 1:01PM ; [facility] Shoulder arthroplasty 11/15/2021 Last Documented On 5 1:01PM ; [facility] Total knee arthroplasty 11/15/2021 Last Documented On 5 1:01PM ; [facility], [facility] Family History Includes: Family History addressed during this encounter Description Last Updated Family history of cancer 11/15/2021 Last Documented On 5 1:01PM ; [facility], [facility] Family history of heart disease 11/16/19 22 Last Documented On 5 1:01PM ; [facility], [facility] Family history of rheumatoid arthritis 0 11/15/2021 Last Documented On 5 1:01PM ; [facility], [facility] Maternal grandfather's history of family history of heart disease 11/15/2021 Last Documented On 5 1:01PM ; [facility] Maternal grandmother's history of family history of heart disease 11/15/2021 Last Documented On 5 1:01PM ; [facility] Maternal grandmother's history of rheuma toid arthritis 11/15/2021 Last Documented On 5 1:01PM ; [facility] Maternal history of family history of ca ncer 11/15/2021 Last Documented On 5 1:01PM ; [facility], [facility] Maternal history of family history of he art disease 11/15/2021 Last Documented On 5 1:01PM ; [facility], [facility] Paternal grandfather's history of family history of heart disease 11/15/2021 Last Documented On 5 1:01PM ; [facility] Diabetes mellitus 12/08/2020 Last Documented On 5 1:01PM ; [facility] Review of Systems Includes: Review [...] Diagnosis NEW PROBLEM/EST PT Karlos Nunez PA-C [facility] 06/05/19 25 1:00PM 1:44PM Overweight Insurance Includes: Active Insurance Policies Plan Name Member ID Group # Subscriber Relationship Effect daksha Dates 1 - [facility]/ [employer] [id number] Mela Neves Self Clinical Notes Includes: Clinical Notes from this encounter * Progress note Date Encounter Last Documented by 06/05/2024 NEW PROBLEM/EST PT Last document ed on 06/05/2024; 3:40 PM, Karlos Nunez PA-C; [facility], [facility] Active Problems & Conditions - Joint Pain [...] Tablet 30 days, 0 refills - Nystatin [id number] UNIT/ML Mouth/Throat Suspension 14 days, 0 refills [...]
--- OUTSIDE RECORDS SUMMARY | 2025-03-18 16:29 | XMS_ITS | Clinical Summary ---
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 Includes: Problems addressed during this encounter and other active Problems All Visits Onset Date Resolved Date Provider Condition S tatus Joint Pain Right Thumb 08/23/2023 Karlos de paz PA-C Active Last Documented On 4 10:36AM ; [facility] Lower Back Pain 01/17/2023 Richard Palomo PA-C A ctive Last Documented On 3 2:28PM ; [facility] Joint Pain Hip Left 06/14/2022 Richard Manning Active Last Documented On 3 3:30PM ; [facility] Joint Pain Right Knee 03/25/2022 Janell VILLEGASC Active Last Documented On 2 12:58PM ; [facility], [facility] Plan of Treatment No Plan of [...] On 4 10:41AM By Geni Johns ; [facility], [facility] HYDROcodone-Acetaminophen 5-325 MG Oral Tablet 024 Provider: Diagnosis: Last Documented On 4 10:41AM By Geni Johns ; [facility], [facility] Repatha SureClick 140 MG/ML Subcutaneous Solution Auto-injector 06/08/2023 Provider: Diagnosis: Last Documented On 4 10:41AM By Geni Johns ; [facility], [facility] Pantoprazole Sodium 40 MG Or al Tablet Delayed Release 06/06/2023 Provider: IGNACIO PEOPLES Diagnosis: Last Documented On 4 10:41AM By Geni Johns ; [facility], [facility] Sertraline HCl 100 MG Oral Tablet 06/06/2023 Provide r: IGNACIO PEOPLES Diagnosis: Last Documented On 4 10:41AM By Geni Johns ; [facility], [facility] Fluconazole 100 MG Oral Tablet 06/06/2023 Provider: IGNACIO PEOPLES Diagnosis: Last Documented On 4 10:41AM By Geni Johns ; [facility], [facility] Ondansetron 4 MG Oral Tablet Disintegrating 06/06/2023 Provider: IGNACIO PEOPLES Diagnosis: Last Documented On 4 10:41AM By Geni Johns ; [facility], [facility] Albuterol Sulfate (2.5 MG/3M L) 0.083% Inhalation Nebulization solution 05/15/2023 Provider: IGNACIO PEOPLES Diagnosis: Last Documented On 4 10:41AM By Geni Johns ; [facility], [facility] Famotidine 20 MG Oral Tablet 05/12/2023 Provider: IGNACIO PEOPLES Diagnosis: Last Documented On 4 10:41AM By Geni Johns ; [facility], [facility] Nystatin [id number] UNIT/ML Mouth/Throat Suspension 2023 Provider: IGNACIO PEOPLES Diagnosis: Last Documented On 4 10:41AM By Geni Johns ; [facility], [facility] Rosuvastatin Calcium 10 MG Oral Tablet 02/23/2023 Pr ovider: Diagnosis: Last Documented On 4 10:41AM By Geni Johns ; [facility], [facility] Pregabalin 50 MG Oral Capsule 02/13/2023 Provider: IGNACIO PEOPLES Diagnosis: Last Documented On 4 10:41AM By Geni Johns ; [facility], [facility] Amitriptyline HCl 10 MG Oral Tablet 01/10/2023 Provi talat: IGNACIO PEOPLES Diagnosis: Last Documented On 3 11:02AM By Geni Johns ; [facility], [facility] Prasugrel HCl 10 MG Oral Tablet 01/03/2023 Provider: Diagnosis: Last Documented On 4 10:41AM By Geni Johns ; [facility], [facility] DULoxetine HCl 30 MG Oral Ca psule Delayed Release Particles 11/04/2022 Provider: IGNACIO PEOPLES Diagnosis: Last Documented On 4 10:41AM By Geni Johns ; [facility], [facility] Carvedilol 3.125 MG Oral Tablet 09/23/2022 Provider: Diagnosis: Last Documented On 4 10:41AM By Geni Johns ; [facility], [facility] Esomeprazole Magnesium 40 MG Oral Capsule Delayed Rele ase 06/24/2022 Provider: Diagnosis: Last Documented On 3 10:19AM By Selina Lucas ; [facility], [facility] tiZANidine HCl 2 MG Oral Tablet 06/24/2022 Provider: Diagnosis: Last Documented On 3 10:19AM By Selina Lucas ; [facility], [facility] Medications Administered Includes: Administered Medications from [...] carpometacarp joint, r hand Nikolai Fagan MD [facility] 06/05/2024 Last Documented On 5 12:33PM ; [facility] Medical History Includes: Medical [...] Effect daksha Dates 1 - [facility] [id number] Mela Enriquez Clinical Notes Includes: Clinical Notes from this encounter No Clinical Notes Recorded
--- OUTSIDE RECORDS SUMMARY | 2025-03-18 16:29 | XMS_ITS | Clinical Summary ---
Author Organization [employer] ([place], [place], [place], [place], [place]) Address [address] [place] [address] Care Team Providers Care Supervisor Phosphoric Acid Name Role Phone Monroe Lopez MD Unavailable Familia ePrez APRN Unavailable [phone] Angeles Hartman APRN Primary Care Provider Allergies [...] then 1 BID and continue.. 60 tablet 5 03/11/20 25 Discontinued Active Problems Problem Noted Date Diagnosed Date Primary osteoarthritis of right knee 07/26/2023 History of arthroplasty of left knee 07/26/2023 Encounters Date Type Department Care Team Description 03/11/2025 2:15 PM EST Office Visit [facility] Neurology - [place] [address] [place] [address] Jewel Nunez MD Polyneuropathy (Primary Dx); EVAN (obstructive sleep apnea); Obstructive sleep apnea on CPAP; Prediabetes; Obesity (BMI 30-39.9); Numbness and tingling of both legs 01/09/2025 Telephone [facility] Neurology - [facility] [address] [place] [address] Danae Alexander, COMMUNICATIONS TECHNICIAN Results 12/31/2024 10:00 AM EDT Office Visit [facility] Neurology - [facility] [address] [place] [address] Jewel Nunez MD Polyneuropathy (Primary [...] Date Regis rded Speak language other than Kuwaiti at home Not on file 08/02/2023 Want [...] Description 09/08/2025 2:15 PM EDT Office Visit [facility] Neurology - [place] [address] [place] [address] Jewel Nunez MD [address] [place] [address] [employer] [place] [address] [place] [address] Health Maintenance Due Date Last Done Comments [...] Medicare Initial AWV [id number] 05/08/2024 COVID-19 VACCINE ( - season) 2025 Influenza Vaccine (#1) 2025 Tobacco Cessation Counseling and Screening (12+) 03/11/2026 03/11/2025 DTAP/TDAP/TD VACCINES (4 - T d or Tdap) 11/04/2034 11/04/2024, 04/11/2019, 07/10/1996 Procedures Procedure Name Priority Date/Time Associated [...] - 01/11/2025 3:07 PM EDT Performed at: [facility] [employer] [address] [place] [id number] Industrial Workers: Dragan Rodrigues MD, Phone: [phone] us Jewel Nunez MD LAB BLOOD ORDERABLES [...] - 01/11/2025 3:07 PM EDT Performed at: [facility] [address] [id number] Industrial Workers: Paddy Rivera PhD, Phone: [phone] us Jewel Nunez MD LAB BLOOD ORDERABLES Final Resul t Performing Organization Address [facility] Co de Phone Number [facility] * Copper, [...] 3:07 PM EDT Performed at: 02 - [employer] [address] [place] [id number] Industrial Workers: Josee Ingram [facility], Phone: [phone] Jewel Nunez MD LAB BLOOD ORDERABLES Final Resul t Performing Organization Address [facility] de Phone Number [facility] * Anti-Hu, Anti-Ri, Anti-Yo IFA (12/31/2024 11:15 AM EDT) Anti-Hu Ab([facility]) Negative Negative [facility] Anti-Ri Ab([facility]) Negative Negative [facility] Anti-Yo Ab([facility]) Negative Negative [facility] 12/31/2024 11:1 5 AM EDT 12/31/2024 Narrative [facility] - 01/11/2025 3:07 PM EDT Test(s) 122906-Vkur-Vx Ab; 150799-Dqnu-Zq Ab; 494055- CATERING STAFF MEMBER Type-1 (Anti-Yo) Ab was developed and its performance characteristics determined by [facility]. It has not been cleared or approved by the Food and Drug Administration. Performed at: 03 - [address] [id number] Industrial Workers: Tyesha Lorenzo MD, Phone: [phone] Jewel Nunez MD LAB BLOOD ORDERABLES Final Resul t Performing Organization Address City/[facility]/ZIP Co de Phone Number [facility] * Vitamin B1 (Thiamine), Whole Blood, LC/MS/MS (12/31/2024 11:15 AM EDT) Vit. B1, Whole Blood 107.3 66.5 - 200.0 nmol/L [facility] 12/31/2024 11:1 5 AM EDT 12/31/2024 Narrative [facility] - 01/11/2025 3:07 PM EDT Test(s) 257848-Ycw. B1, Whole Blood was developed and its performance characteristics determined by [facility]. It has not been cleared or approved by the Food and Drug Administration. Performed at: [address] [id number] Industrial Workers: Tyesha Lorenzo MD, Phone: [phone] Jewel Nunez MD LAB BLOOD ORDERABLES Final Resul t Performing Organization Address [facility] de Phone Number [facility] * TSH W/REFLEX TO FT4 (12/31/2024 11:15 AM EDT) Pathologist [facility] TSH 0.985 0.450 - 4.500 uIU/mL [facility] 12/31/2024 11:1 5 AM EDT 12/31/2024 Narrative [facility] - 01/11/2025 3:07 PM EDT Performed at: [address] [id number] Industrial Workers: Paddy Rivera PhD, Phone: [phone] us Jewel Nunez MD LAB BLOOD ORDERABLES Final Resul t Performing Organization Address City/[facility] Co de Phone Number [facility] * (ABNORMAL) HGB A1C WITH EAG ESTIMA (12/31/2024 11:15 AM EDT) Pathologist [facility] Hemoglobin A1c 5.9(H) 4.8 - 5.6 % [facility] Comment: Prediabetes: 5.7 - 6.4 Diabetes: >6.4 Glycemic control for adults with diabetes: <7.0 Hemoglobin A1c 123 mg/dL [facility] 12/31/2024 11:1 5 AM EDT 12/31/2024 Narrative [facility] - 01/11/2025 3:07 PM EDT Performed at: [address] [place] [id number] Industrial Workers: Paddy Rivera PhD, Phone: [phone] Jewel Nunez MD LAB BLOOD ORDERABLES Final Resul t Performing Organization Address [facility] de Phone Number [facility] * ANTINUCLEAR ANTIBODIES [...] - 01/11/2025 3:07 PM EDT Performed at: [address] [place] [id number] Industrial Workers: Paddy Rivera PhD, Phone: [phone] us Jewel Nunez MD LAB BLOOD ORDERABLES Final Resul t Performing Organization Address City/[facility] Co de Phone Number [facility] * [...] - 01/11/2025 3:07 PM EDT Performed at: [address] [id number] Industrial Workers: Paddy Rivera PhD, Phone: [phone] Jewel Nunez MD LAB BLOOD ORDERABLES Final Resul t Performing Organization Address [facility] de Phone Number [facility] * Sjogren's antibodies (12/31/2024 11:15 AM EDT) Sjogren's Anti-SS-A <0.2 0.0 - 0.9 [facility] Sjogren's Anti-SS-B <0.2 0.0 - 0.9 [facility] Blood 12/31/2024 11:1 5 AM EDT 12/31/2024 Narrative [facility] - 01/11/2025 3:07 PM EDT Performed at: [address] [id number] Industrial Workers: Paddy Rivera PhD, Phone: [phone] Jewel Nunez MD LAB BLOOD ORDERABLES Final Resul t Performing Organization Address [facility] de Phone Number [facility] * Methylmalonic acid (12/31/2024 11:15 AM EDT) Methylmalonic Acid, Serum 189 0 - 378 nmol/L [facility] Blood 12/31/2024 11:1 5 AM EDT 12/31/2024 Narrative [facility] - 01/11/2025 3:07 PM EDT Test(s) 943866-Bbvxyhaktzdbo Acid, Serum was developed and its performance characteristics determined by [facility]. It has not been cleared or approved by the Food and Drug Administration. Performed at: [address] [place] [id number] Industrial Workers: Tyesha Lorenzo MD, Phone: [phone] Jewel Nunez MD LAB BLOOD ORDERABLES Final Resul t Performing Organization Address [facility] de Phone Number [facility] * Rheumatoid factor Ab, reflex to titer (12/31/2024 11:15 AM EDT) Pathologist [facility] RA Latex Turbid. <10.0 <14.0 IU/mL [facility] Blood 12/31/2024 11:1 5 AM EDT 12/31/2024 Narrative [facility] - 01/11/2025 3:07 PM EDT Performed at: [address] [place] [id number] Industrial Workers: Paddy Rivera PhD, Phone: [phone] us Jewel Nunez MD LAB BLOOD ORDERABLES Final Resul t Performing Organization Address [facility] de Phone Number [facility] * Sedimentation rate (12/31/2024 11:15 AM EDT) [facility] Sedimentation Rate-Westergren 12 0 - 40 mm/hr [facility] Blood 12/31/2024 11:1 5 AM EDT 12/31/2024 Narrative [facility] - 01/11/2025 3:07 PM EDT Performed at: [address] [place] [id number] Industrial Workers: Paddy Rivera PhD, Phone: [phone] us Jewel Nunez MD LAB BLOOD ORDERABLES Final Resul t Performing Organization Address [facility] Co de Phone Number [facility] * Angiotensin Converting Enzyme (KEENAN) (12/31/2024 11:15 AM EDT) Pathologist [facility] KEENAN 30 14 - 82 U/L [facility] Blood 12/31/2024 11:1 5 AM EDT 12/31/2024 Narrative [facility] - 01/11/2025 3:07 PM EDT Performed at: - [address] [id number] Industrial Workers: Paddy Rivera PhD, Phone: [phone] Jewel Nunez MD LAB BLOOD ORDERABLES Final Resul t Performing Organization Address [facility] de Phone Number [facility] * VITAMIN E (12/31/2024 11:15 AM EDT) Vitamin E(Alpha Tocopherol) 12.2 7.0 - 25.1 mg/L [facility] Vitamin E(Gamma Tocopherol) 1.2 0.5 - 5.5 mg/L [facility] Comment: Reference intervals for alpha and gamma-tocopherol determined from National Health and Nutrition Examination Survey, 2888-3371. Individuals with alpha-tocopherol levels less than 5.0 mg/L are considered vitamin E deficient. Blood 12/31/2024 11:1 5 AM EDT 12/31/2024 Narrative [facility] - 01/11/2025 3:07 PM EDT Test(s) 345566-Ycyicsd E(Alpha Tocopherol); 122809- Vitamin E(Gamma Tocopherol) was developed and its performance characteristics determined by [facility]. It has not been cleared or approved by the Food and Drug Administration. Performed at: [address] [id number] Industrial Workers: Tyesha Lorenzo MD, Phone: [phone] Jewel Nunez MD LAB BLOOD ORDERABLES Final Resul t Performing Organization Address [facility] de Phone Number [facility] * Vitamin B6, Plasma (12/31/2024 11:15 AM EDT) Vitamin B6 7.3 3.4 - 65.2 ug/L [facility] Comment: Deficiency: <3.4 Marginal: 3.4 - 5.1 Adequate: >5.1 Blood 12/31/2024 11:1 5 AM EDT 12/31/2024 Narrative [facility] - 01/11/2025 3:07 PM EDT Test(s) 137780-Dtstjch B6 was developed and its performance characteristics determined by [facility]. It has not been cleared or approved by the Food and Drug Administration. Performed at: 03 - [address] [id number] Industrial Workers: Tyesha Lorenzo MD, Phone: [phone] Jewel Nunez MD LAB BLOOD ORDERABLES Final Resul t [facility] * PROTEIN ELECTROPHORESIS, SERUM WITH REFLEX TO IMMUNOTYPING (12/31/2024 11:15 AM EDT) Protein, Total, Serum 6.9 6.0 - 8.5 g/dL [facility] Albumin 3.8 2.9 - 4.4 g/dL [facility] Fvudr-5-Ceofisui 0.3 0.0 - 0.4 g/dL [facility] Mcaxu-0-Fybznzra 1.0 0.4 - 1.0 g/dL [facility] Beta Globulin 1.1 0.7 - 1.3 g/dL [facility] Gamma Globulin 0.8 0.4 - 1.8 g/dL [facility] M-Zach Not Observed Not Observed g/dL [facility] Globulin, Total 3.1 2.2 - 3.9 g/dL [facility] A/G Ratio 1.2 0.7 - 1.7 [facility] Please note: Comment [facility] Comment: Protein electrophoresis scan will follow via computer, mail, or roofing contractor delivery. P E Interpretation, S Comment [facility] Comment: The SPE pattern appears unremarkable. Evidence of monoclonal protein is not apparent. Blood 12/31/2024 11:1 5 AM EDT 12/31/2024 Narrative [facility] - 01/11/2025 3:07 PM EDT Performed at: - [address] [id number] Industrial Workers: Paddy Rivera PhD, Phone: [phone] Jewel Nunez MD LAB BLOOD ORDERABLES Final Resul t Performing Organization Address City/[facility]/ZIP Co de Phone Number [facility] from Last 3 Months Insurance AARP MEDICARE COMPLETE MAP Care Teams Supervisor Phosphoric Acid Relationship Specialty Start Date End Date Angeles Hartman APRN [address] [address] PCP - General Nurse Practitioner 07/19/24 Monroe Lopez MD [address] [place] [address] Sports Medicine 02/14/24 Familia Perez, VIRY [address] [place] [address] Orthopedic Surgery 03/25/24
--- OUTSIDE RECORDS SUMMARY | 2025-03-18 16:29 | XMS_ITS | Clinical Summary ---
Author Organization [facility] , [facility] Address [address] [place] [address] Phone Care Team Providers Care Pleater Name Role Phone IGNACIO HARTMAN Unavailable [phone] Nikunj HA, Joey Vieira Unavailable [phone] Reason for Visit and Chief Complaint The Chief Complaint is: Right thumb and hand pain Problems Includes: Problems addressed during this encounter and other active Problems Current Visit Onset Date Resolved Date Provider Conditio n Status Lower Back Pain 01/17/2023 Richard Palomo PA-C A ctive Last Documented On 3 2:28PM ; [facility], [facility] Lower Back Pain 10/23/2020 11/15/2021 Janell Vila PA-C Resolved Last Documented On 2 9:13AM ; [facility], [facility] Past Visits Onset Date Resolved Date Provider Condition Status Joint Pain Right Thumb 08/23/2023 Karlos de paz PA-C Active Last Documented On 4 10:36AM ; [facility], [facility] Joint Pain Hip Left 06/14/2022 Richard Manning Active Last Documented On 3 3:30PM ; [facility], [facility] Joint Pain Right Knee 03/25/2022 Janell de paz PA-C Active Last Documented On 2 12:58PM ; [facility], [facility] Plan of Treatment Instructions to patient Intervention and counseling on cessation of tobacco use Last Documented On 4 1:08PM ; [facility], [facility] Lose weight Last Documented On 4 1:08PM ; [facility], [facility] Assessments Includes: Assessments from this encounter Findings - Overweight - Last Documented On 11/29/2023 1:34PM ; [facility], [facility] Instructions Includes: Instructions from this encounter Instructions to patient Intervention and counseling on cessation of tobacco use Last Documented On 4 1:08PM ; [facility], [facility] Lose weight Last Documented On 4 1:08PM ; [facility], [facility] Medical Equipment - Implanted Devices Includes: Current Devices No Medical Equipment Recorded Medications Includes: Medications discussed during this encounter and other current Medications Current Medications (continue as prescribed) Naproxen 500 MG Oral Tablet 06/24/2023 Provider: IGNACIO HARTMAN Diagnosis: Last Documented On 4 10:41AM By Geni Johns ; [facility], [facility] HYDROcodone-Acetaminophen 5-325 MG Oral Tablet 024 Provider: Diagnosis: Last Documented On 4 10:41AM By Geni Johns ; [facility], [facility] Repatha SureClick 140 MG/ML Subcutaneous Solution Auto-injector 06/08/2023 Provider: Diagnosis: Last Documented On 4 10:41AM By Geni Johns ; [facility], [facility] Pantoprazole Sodium 40 MG Or al Tablet Delayed Release 06/06/2023 Provider: IGNACIO HARTMAN Diagnosis: Last Documented On 4 10:41AM By Geni Johns ; [facility], [facility] Sertraline HCl 100 MG Oral Tablet 06/06/2023 Provide r: IGNACIO HARTMAN Diagnosis: Last Documented On 4 10:41AM By Geni Johns ; [facility], [facility] Fluconazole 100 MG Oral Tablet 06/06/2023 Provider: IGNACIO HARTMAN Diagnosis: Last Documented On 4 10:41AM By Geni Johns ; [facility], [facility] Ondansetron 4 MG Oral Tablet Disintegrating 06/06/2023 Provider: IGNACIO HARTMAN Diagnosis: Last Documented On 4 10:41AM By Geni Johns ; [facility], [facility] Albuterol Sulfate (2.5 MG/3M L) 0.083% Inhalation Nebulization solution 05/15/2023 Provider: IGNACIO HARTMAN Diagnosis: Last Documented On 4 10:41AM By Geni Johns ; [facility] Famotidine 20 MG Oral Tablet 05/12/2023 Provider: IGNACIO HARTMAN Diagnosis: Last Documented On 4 10:41AM By Geni Johns ; [facility] Nystatin 989279 UNIT/ML Mouth/Throat Suspension 2023 Provider: IGNACIO HARTMAN Diagnosis: Last Documented On 4 10:41AM By Geni Johns ; [facility] Rosuvastatin Calcium 10 MG Oral Tablet 02/23/2023 Pr ovider: Diagnosis: Last Documented On 4 10:41AM By Geni Johns ; [facility] Pregabalin 50 MG Oral Capsule 02/13/2023 Provider: IGNACIO HARTMAN Diagnosis: Last Documented On 4 10:41AM By Geni Johns ; [facility] Amitriptyline HCl 10 MG Oral Tablet 01/10/2023 Provi talat: IGNACIO HARTMAN Diagnosis: Last Documented On 3 11:02AM By Geni Johns ; [facility] Prasugrel HCl 10 MG Oral Tablet 01/03/2023 Provider: Diagnosis: Last Documented On 4 10:41AM By Geni Johns ; [facility] DULoxetine HCl 30 MG Oral Ca psule Delayed Release Particles 11/04/2022 Provider: IGNACIO HARTMAN Diagnosis: Last Documented On 4 10:41AM By Geni Johns ; [facility] Carvedilol 3.125 MG Oral Tablet 09/23/2022 Provider: Diagnosis: Last Documented On 4 10:41AM By Geni Johns ; [facility] Esomeprazole Magnesium 40 MG Oral Capsule Delayed Rele ase 06/24/2022 Provider: Diagnosis: Last Documented On 3 10:19AM By Selina Lucas ; [facility] tiZANidine HCl 2 MG Oral Tablet 06/24/2022 Provider: Diagnosis: Last Documented On 3 10:19AM By Selina Lucas ; [facility], [facility] Past Medications on file Meloxicam 15 MG Oral Tablet 06/30/2023 - 07/30/2023 Pr ovider: Richard Palomo PA-C Diagnosis: Take t tablet by mouth once a day Last Documented On 4 11:20AM By Geni Johns ; [facility], [facility] Medications Administered Includes: Administered [...] 06/24/2022 Last Documented On 4 1:08PM ; [facility], [facility] Tobacco non-user 03/25/2022 Last Documented On 4 1:08PM ; [facility], [facility] Exercising regularly 03/25/2022 Last Documented On 4 1:08PM ; [facility], [facility] No recent change in diet 03/25/2022 Last Documented On 4 1:08PM ; [facility], [facility] Not a smoker 03/25/2022 Last Documented On 4 1:08PM ; [facility], [facility] Not using alcohol 03/25/2022 Last Documented On 4 1:08PM ; [facility], [facility] Not using drugs 03/25/2022 Last Documented On [...] Documented On 4 1:08PM ; [facility], [facility] use of tobacco assessment performed 1000F Last Documented On 4 1:08PM ; [facility], [facility] review of medications documented 1160F Last Documented On 4 1:08PM ; [facility] an X-ray was performed 01398 Last Documented On 4 1:08PM ; [facility], [facility] brace Last Documented On 4 1:08PM ; [facility], [facility] Surgical History Last Updated History of History of Gallbladder 2021 Last Documented On 4 1:08PM ; [facility], [facility] History of shoulder arthroplasty 022 Last Documented On 4 1:08PM ; [facility], [facility] History of total knee arthroplasty 11/15 Last Documented On 4 1:08PM ; [facility], [facility] History of Past Surgical History: 2021 Last Documented On 4 1:08PM ; [facility], [facility] Medical History Includes: Medical History addressed during this encounter Description Last Updated No recent immunization for flu 2 Last Documented On 4 1:08PM ; [facility], [facility] No recent immunization for pneumococcal pneumonia 03/25/2022 Last Documented On 4 1:08PM ; [facility], [facility] History of arthritis 11/15/2021 Last Documented On 4 1:08PM ; [facility], [facility] History of asthma 11/15/2021 Last Documented On 4 1:08PM ; [facility], [facility] History of depression 11/15/2021 Last Documented On 4 1:08PM ; [facility], [facility] History of heart disease 11/15/2021 Last Documented On 4 1:08PM ; [facility], [facility] History of History of Blood Clots 2021 Last Documented On 4 1:08PM ; [facility], [facility] History of History of Heart Attack / Str giselle 11/15/2021 Last Documented On 4 1:08PM ; [facility], [facility] History of osteoporosis 11/15/2021 Last Documented On 4 1:08PM ; [facility], [facility] Arthritis 11/15/2021 Last Documented On 4 1:08PM ; [facility], [facility] Asthma 11/15/2021 Last Documented On 4 1:08PM ; [facility], [facility] Depression 11/15/2021 Last Documented On 4 1:08PM ; [facility], [facility] Heart disease 11/15/2021 Last Documented On 4 1:08PM ; [facility], [facility] Heartburn / Acid Reflux 11/15/2021 Last Documented On 4 1:08PM ; [facility], [facility] History of Blood Clots 11/15/2021 Last Documented On 4 1:08PM ; [facility], [facility] History of Gallbladder 11/15/2021 Last Documented On 4 1:08PM ; [facility], [facility] History of Heart Attack / Stroke 022 Last Documented On 4 1:08PM ; [facility] Osteoporosis 11/15/2021 Last Documented On 4 1:08PM ; [facility], [facility] Shoulder arthroplasty 11/15/2021 Last Documented On 4 1:08PM ; [facility], [facility] Total knee arthroplasty 11/15/2021 Last Documented On 4 1:08PM ; [facility], [facility] Family History Includes: Family History addressed during this encounter Description Last Updated Family history of cancer 11/15/2021 Last Documented On 4 1:08PM ; [facility] Family history of heart disease 11/16/19 22 Last Documented On 4 1:08PM ; [facility], [facility] Family history of rheumatoid arthritis 0 11/15/2021 Last Documented On 4 1:08PM ; [facility], [facility] Maternal grandfather's history of family history of heart disease 11/15/2021 Last Documented On 4 1:08PM ; [facility], [facility] Maternal grandmother's history of family history of heart disease 11/15/2021 Last Documented On 4 1:08PM ; [facility], [facility] Maternal grandmother's history of rheuma toid arthritis 11/15/2021 Last Documented On 4 1:08PM ; [facility] Maternal history of family history of ca ncer 11/15/2021 Last Documented On 4 1:08PM ; [facility], [facility] Maternal history of family history of he art disease 11/15/2021 Last Documented On 4 1:08PM ; [facility], [facility] Paternal grandfather's history of family history of heart disease 11/15/2021 Last Documented On 4 1:08PM ; [facility], [facility] Diabetes mellitus 12/08/2020 Last Documented On 4 1:08PM ; [facility], [facility] Review of Systems Includes: [...] Time Diagnosis Follow Up Karlos Nunez PA-C [facility] 4 1:00PM 1:44PM Overweight Insurance Includes: Active Insurance Policies Plan Name Member ID Group # Subscriber Relationship Effect [id number] Dates 1 - [facility] [id number] Mela Neves Self Clinical Notes Includes: Clinical Notes from this encounter * Progress note Date Encounter Last Documented by 11/29/2023 Follow Up Last documented on 11/29/2023; 1:34 PM, Karlos Mcneil; [facility], [facility] Active Problems & Conditions [...] Tablet 30 days, 0 refills - Nystatin [id number] UNIT/ML Mouth/Throat Suspension 14 days, 0 refills [...]
== END 2025-03-17 23:59 | disposition home or self-care (01) ==
LOC: LAB.DROPOF 03-18 16:26
PROVIDERS: PCP Nurse Practitioner Family; Visit Provider Nurse Practitioner Family
DX: R50.9 Fever, unspecified (principal); R10.10 Upper abdominal pain, unspecified
CPT/HCPCS: 80053; 82150; 83690; 85025; 87636